=== PATIENT | female | born 1960 | race Caucasian/White ===

== ENCOUNTER 2016-09-20 10:07 | Outpatient (CLI) | payer OTHER | END 2016-09-20 10:08 | disposition home or self-care (01) | DX: Z00.00 Encounter for general adult medical examination without abnormal findings (principal); I10 Essential (primary) hypertension; K29.70 Gastritis, unspecified, without bleeding; M54.5 Low back pain; M48.06 Spinal stenosis, lumbar region; E03.9 Hypothyroidism, unspecified; L03.90 Cellulitis, unspecified; C50.919 Malignant neoplasm of unspecified site of unspecified female breast; F41.9 Anxiety disorder, unspecified; Z79.899 Other long term (current) drug therapy ==

== ENCOUNTER 2016-10-08 14:35 | Emergency (ER) | payer OTHER ==
[2016-10-08] MEDS ORDERED: DEXAMETHASONE 10 MG/ML VIAL IM STA (14:51)
[2016-10-08] MEDS ORDERED: HYDROmorphone 1 MG/ML SYRINGE IM STA (14:51)
[2016-10-08] MEDS ORDERED: HYDROmorphone 1 MG/ML SYRINGE ONE (14:53)
[2016-10-08] MEDS ORDERED: DEXAMETHASONE 10 MG/ML VIAL ONE (14:53)
[2016-10-08] MEDS ORDERED: diazePAM INJ 5 MG/ML SYRINGE IM STA (15:27)
[2016-10-08] MEDS ORDERED: KETOROLAC 60 MG/2 ML VIAL IM STA (15:27)
[2016-10-08] MEDS ORDERED: ONDANSETRON ODT 4 MG TABLET TL STA (15:27)
[2016-10-08] MEDS ORDERED: ONDANSETRON ODT 4 MG TABLET ONE (15:32)
[2016-10-08] MEDS ORDERED: diazePAM INJ 5 MG/ML SYRINGE ONE (15:32)
[2016-10-08] MEDS ORDERED: KETOROLAC 60 MG/2 ML VIAL ONE (15:32)
== END 2016-10-08 16:43 | disposition home or self-care (01) ==
DX: M54.42 Lumbago with sciatica, left side (principal); G89.29 Other chronic pain; F45.42 Pain disorder with related psychological factors; Z98.1 Arthrodesis status; I10 Essential (primary) hypertension
CPT/HCPCS: 96372; 99283; 99284; J1170; Q0162

== ENCOUNTER 2016-10-09 05:06 | Emergency (ER) | payer OTHER ==
[2016-10-09] MEDS ORDERED: DEXAMETHASONE 10 MG/ML VIAL PO STA (06:03)
[2016-10-09] MEDS ORDERED: MORPHINE 2 MG/ML SYRINGE IM STA ×2 (06:03→07:17)
[2016-10-09] MEDS ORDERED: ONDANSETRON ODT 4 MG TABLET TL STA ×2 (06:03→07:17)
[2016-10-09] MEDS ORDERED: ONDANSETRON ODT 4 MG TABLET ONE ×2 (06:26→07:22)
[2016-10-09] MEDS ORDERED: DEXAMETHASONE 10 MG/ML VIAL ONE (06:26)
[2016-10-09] MEDS ORDERED: MORPHINE 2 MG/ML SYRINGE ONE (06:26)
[2016-10-09] MEDS ORDERED: MORPHINE 10 MG/ML VIAL ONE ×2 (06:29→07:22)
== END 2016-10-09 07:46 | disposition home or self-care (01) ==
DX: M54.5 Low back pain (principal); G89.29 Other chronic pain; G62.9 Polyneuropathy, unspecified; I10 Essential (primary) hypertension; E03.9 Hypothyroidism, unspecified; Z85.3 Personal history of malignant neoplasm of breast
CPT/HCPCS: 96372; 99283; 99284; Q0162

== ENCOUNTER 2016-10-29 16:36 | Emergency (ER) | payer OTHER ==
[2016-10-29] MEDS ORDERED: MORPHINE 10 MG/ML VIAL IVP STA (18:46)
[2016-10-29] MEDS ORDERED: MORPHINE 10 MG/ML VIAL ONE (20:33)
[2016-10-29] MEDS ORDERED: MORPHINE 10 MG/ML VIAL IM STA (20:33)
== END 2016-10-29 21:00 | disposition home or self-care (01) ==
DX: R60.9 Edema, unspecified (principal); M25.572 Pain in left ankle and joints of left foot; I10 Essential (primary) hypertension

== ENCOUNTER 2016-11-30 14:54 | Emergency (ER) | payer OTHER ==
[2016-11-30] MEDS ORDERED: METHOCARBAMOL 500 MG TABLET PO STA (15:25)
[2016-11-30] MEDS ORDERED: IBUPROFEN 800 MG TABLET PO STA (15:25)
[2016-11-30] MEDS ORDERED: IBUPROFEN 800 MG TABLET PO ONE (15:29)
[2016-11-30] MEDS ORDERED: METHOCARBAMOL 500 MG TABLET PO ONE (15:30)
[2016-11-30] MEDS ORDERED: ONDANSETRON ODT 4 MG TABLET TL STA (15:57)
[2016-11-30] MEDS ORDERED: ONDANSETRON ODT 4 MG TABLET ONE (15:59)
== END 2016-11-30 17:00 | disposition home or self-care (01) ==
DX: M54.5 Low back pain (principal); V48.4XXA Person boarding or alighting a car injured in noncollision transport accident, initial encounter; G89.29 Other chronic pain; Z98.1 Arthrodesis status; I10 Essential (primary) hypertension; M19.90 Unspecified osteoarthritis, unspecified site; G62.9 Polyneuropathy, unspecified; E03.9 Hypothyroidism, unspecified
CPT/HCPCS: 72131; 99282; 99283; A9270; Q0162

== ENCOUNTER 2017-04-23 15:51 | Emergency (ER) | payer OTHER ==
[2017-04-23] MEDS ORDERED: MORPHINE 2 MG/ML SYRINGE IVP STA (16:42)
[2017-04-23] MEDS ORDERED: ONDANSETRON 4 MG/2 ML VIAL IVP STA (16:42)
--- NOTE | 2017-04-23 16:44 | ED Physician Documentation ---
PD HPI ABD PAIN - Stated complaint Stated Complaint: NAUSEA/SIDE PX - Chief complaint Chief Complaint: Abd Pain - History obtained from History obtained from: Patient - History of Present Illness Timing - onset: Other (57-year-old woman with history of recurrent diverticulitis presents with 3 days of worsening left lower quadrant pain not associated with nausea or diarrhea consistent with prior episodes of diverticulitis. 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 : None HEENT: None Psych: Depression, Anxiety, ADD/ADHD Musculoskeletal: Osteoarthritis, Chronic back pain Derm: None - Past Surgical History Past Surgical History: Yes General: Appendectomy Ortho: Spine surgery /PHYSICAL SCIENCE TECHNICIAN: Mastectomy - Present Medications Home Medications: Ambulatory Orders Medication Instructions Recorded Confirmed Thyroid,Pork [[place] Thyroid] 180 mg PO DAILY 06/06/15 11/30/16 Amlodipine Besylate [Norvasc] 10 mg PO DAILY 07/01/15 11/30/16 Trazodone HCl 200 mg PO QPM 02/19/16 11/30/16 oxyCODONE [Roxicodone] 15 mg PO 5XD PRN 04/14/16 11/30/16 Albuterol Sulfate [Proair 1 - 2 puffs IH Q4HR PRN #1 04/15/16 11/30/16 Respiclick] [email or web address] Venlafaxine ER [Effexor ER] 225 mg PO DAILY #0 04/15/16 11/30/16 Ondansetron HCl [Zofran] 4 mg PO Q6H PRN #20 tablet 06/11/16 11/30/16 Cyclobenzaprine [Flexeril] 10 mg PO TID PRN #20 tablet 08/16/16 11/30/16 Promethazine [Phenergan] 12.5 mg PO Q6H #10 tablet 08/16/16 11/30/16 Methocarbamol [Robaxin] 1,000 mg PO Q8HR #30 tablet 11/30/16 Ciprofloxacin HCl [Cipro] 500 mg PO BID #14 tablet 04/23/17 Metronidazole [Flagyl] 500 mg PO TID #20 tablet 04/23/17 Oxycodone HCl/Acetaminophen 1 - 2 tab PO Q4H PRN #15 tablet 04/23/17 [Percocet 5-325 mg Tablet] Promethazine [Phenergan] 25 - 50 mg PO Q6H PRN #15 tab 04/23/17 - Allergies Allergies/Adverse Reactions: Allergies Allergy/AdvReac Type Severity Reaction Status Date / Time adhesive tape Allergy Rash Verified 04/23/17 15:57 acetaminophen [From Vicodin] AdvReac Itching Verified 04/23/17 15:57 codeine AdvReac Nausea Verified 04/23/17 15:57 hydrocodone bitartrate * AdvReac Itching Verified 04/23/17 15:57 [From Vicodin] - Social History Does the pt smoke?: No Smoking Status: Never smoker Does the pt drink ETOH?: No Does the pt have substance abuse?: No - Family History Family history: reports: Non contributory - Immunizations Immunizations are current?: Yes - POLST Patient has POLST: No PD ED PE NORMAL - Vitals Vital signs reviewed: Yes - General General: Alert and oriented X 3, No acute distress - Cardiac Cardiac: RRR, No murmur - Respiratory Respiratory: No respiratory distress, Clear bilaterally - Abdomen Abdomen: Normal bowel sounds, Other (Soft with mild tenderness in the left lower quadrant but no surgical signs) - Back Back: No CVA TTP, No spinal TTP - Derm Derm: Normal color, Warm and dry - Extremities Extremities: No edema, No calf tenderness / cord - Neuro Neuro: Alert and oriented X 3, Normal speech - Psych Psych: Normal mood, Normal affect Results - Vitals Vitals: Vital Signs - 24 hr 04/23/17 15:54 Temperature 37.2 C Heart Rate 106 H Respiratory 18 Rate Blood Pressure 137/94 H O2 Saturation 98 Oxygen O2 Source Room air - Labs Labs: Laboratory Tests 04/23/17 04/23/17 16:55 16:55 WBC 12.4 H RBC 4.98 Hgb 15.4 Hct 45.3 MCV 91.1 MCH 31.0 MCHC 34.0 RDW 13.6 Plt Count 353 MPV 7.6 L Neut # 7.0 H Lymph # 4.3 H [place] # 0.8 Eos # 0.3 Baso # 0.0 Absolute Nucleated RBC 0.00 Nucleated RBCs 0.0 Sodium 139 Potassium 3.1 L Chloride 105 Carbon Dioxide 24 Anion Gap 10.0 BUN 15 Creatinine 0.7 Estimated GFR (MDRD) 86 L Glucose 128 H Calcium 10.1 Total Bilirubin 0.6 AST 20 ALT 18 Alkaline Phosphatase 94 Total Protein 7.9 Albumin 4.1 Globulin 3.8 Albumin/Globulin Ratio 1.1 Lipase 16 L PD MEDICAL DECISION MAKING - ED course ED course: 57-year-old woman with recurrent diverticulitis presents with apparent flare of same, given her symptoms, focal tenderness, and lack of significantly elevated white count CT imaging was not performed today to save her the cost and radiation, but discussed need to return if worsening or if not better in a few days. Departure - Departure Disposition: 01 Home, Self Care Clinical Impression: Diverticulitis of gastrointestinal tract Condition: Good Record reviewed to determine appropriate education?: Yes Instructions: ED Diverticulitis Follow-Up: PRAVEEN CANO MD [Provider Admit Priv/Credential] - Prescriptions: Ciprofloxacin HCl [Cipro] 500 mg PO BID #14 tablet Metronidazole [Flagyl] 500 mg PO TID #20 tablet Oxycodone HCl/Acetaminophen [Percocet 5-325 mg Tablet] 1 - 2 tab PO Q4H PRN #15 tablet PRN Reason: Pain Promethazine [Phenergan] 25 - 50 mg PO Q6H PRN #15 tab PRN Reason: Nausea / Vomiting Comments: Return if not better in a couple days, anytime if worse. As discussed it may be beneficial at this point to follow-up with the surgeon for definitive partial colectomy for the most diseased part of your colon. Name is on this form. Your blood pressure was elevated today on check into the emergency department. This does not mean that you have hypertension, it is a common phenomenon to come to the emergency department and have elevated blood pressure. I recommend that she see her primary care physician within the week to have it rechecked when you are feeling better. Do not drink or drive while taking narcotic pain medication. Note that many narcotic pain relievers also contain Tylenol/acetaminophen. Please ensure that your total dose of acetaminophen from all sources does not exceed 3 g (3000 mg) per day. You may get constipated while on this medication. Take a stool softener such as Colace twice a day while you are on it. Also add an [id number] laxative such as senna or MiraLAX on any day that you do not have a bowel movement. If you received a narcotic pain medication or sedative while in the emergency department, do not drive for the next 24 hours. Forms: Activity restrictions
[2017-04-23] MEDS ORDERED: MORPHINE 10 MG/ML VIAL ONE (17:01)
[2017-04-23] MEDS ORDERED: ONDANSETRON 4 MG/2 ML VIAL ONE (17:01)
[2017-04-23 17:14] LABS: BASOPHILS % (AUTO) 0.3 %; EOSINOPHILS # (AUTO) 0.3 10^3/uL (0.0-0.7); EOSINOPHILS % (AUTO) 2.4 %; HCT - HEMATOCRIT 45.3 % (37.0-47.0); HGB - HEMOGLOBIN 15.4 g/dL (12.0-16.0); LYMPHOCYTES # (AUTO) 4.3 10^3/uL (1.5-3.5); LYMPHOCYTES % (AUTO) 34.3 %; MEAN CORPUSCULAR VOLUME 91.1 fL (81.0-99.0); MEAN PLATELET VOLUME 7.6 fL (7.9-10.8); MONOCYTES # (AUTO) 0.8 10^3/uL (0.0-1.0); MONOCYTES % (AUTO) 6.3 %; NEUTROPHILS % (AUTO) 56.7 %; RED BLOOD COUNT 4.98 10^6/uL (4.20-5.40); RED CELL DISTRIBUTION WIDTH 13.6 % (12.0-15.0); UNCORRECTED WHITE BLOOD COUNT 12.4 x10^3/uL; WHITE BLOOD COUNT 12.4 x10^3/uL (4.8-10.8)
[2017-04-23 17:25] LABS: ALBUMIN/GLOBULIN RATIO 1.1 (1.0-2.2); BILIRUBIN,TOTAL 0.6 mg/dL (0.2-1.0); CALCIUM 10.1 mg/dL (8.5-10.3); CREATININE 0.7 mg/dL (0.4-1.0); POTASSIUM 3.1 mmol/L (3.5-5.0); TOTAL PROTEIN 7.9 g/dL (6.7-8.2)
[2017-04-23] MEDS ORDERED: CIPROFLOXACIN 250 MG TABLET PO STA (17:51)
[2017-04-23] MEDS ORDERED: metroNIDAZOLE 250 MG TABLET PO STA (17:51)
[2017-04-23] MEDS ORDERED: POTASSIUM CHLORIDE 20 MEQ TABLET PO STA (17:51)
[2017-04-23] MEDS ORDERED: PROMETHAZINE INJ 25 MG in SODIUM CHLORIDE 0.9% 50 ML IV STA (17:56)
[2017-04-23] MEDS ORDERED: HYDROmorphone 1 MG/ML SYRINGE IVP STA (17:56)
[2017-04-23] MEDS ORDERED: metroNIDAZOLE 250 MG TABLET PO ONE (18:09)
[2017-04-23] MEDS ORDERED: PROMETHAZINE 25 MG/1 ML VIAL ONE (18:10)
[2017-04-23] MEDS ORDERED: POTASSIUM CHLORIDE 20 MEQ TABLET PO ONE (18:10)
[2017-04-23] MEDS ORDERED: CIPROFLOXACIN 250 MG TABLET PO ONE (18:10)
[2017-04-23] MEDS ORDERED: HYDROmorphone 1 MG/ML SYRINGE ONE (18:10)
[2017-04-23 18:34] VITALS: BP 134/88
== END 2017-04-23 18:38 | disposition home or self-care (01) ==
LOC: ED 15:51
DX: K57.32 Diverticulitis of large intestine without perforation or abscess without bleeding (principal); I10 Essential (primary) hypertension; J45.909 Unspecified asthma, uncomplicated; G62.9 Polyneuropathy, unspecified; E03.9 Hypothyroidism, unspecified; M19.90 Unspecified osteoarthritis, unspecified site; Z85.3 Personal history of malignant neoplasm of breast
CPT/HCPCS: 36415; 80053; 83690; 85025; 96374; 96375; 99283; 99284; A9270; J1170; J7040

== ENCOUNTER 2017-05-16 00:11 | Emergency (ER) | payer OTHER ==
[2017-05-16] MEDS ORDERED: ONDANSETRON ODT 4 MG TABLET TL STA (00:45)
[2017-05-16] MEDS ORDERED: IBUPROFEN 600 MG TABLET PO STA (00:46)
[2017-05-16] MEDS ORDERED: KETOROLAC 60 MG/2 ML VIAL IM STA (00:46)
[2017-05-16] MEDS ORDERED: ONDANSETRON ODT 4 MG TABLET ONE (00:51)
[2017-05-16] MEDS ORDERED: KETOROLAC 60 MG/2 ML VIAL ONE (00:51)
[2017-05-16 00:54] LABS: BASOPHILS # (AUTO) 0.1 10^3/uL (0.0-0.1); BASOPHILS % (AUTO) 1.1 %; EOSINOPHILS # (AUTO) 0.3 10^3/uL (0.0-0.7); EOSINOPHILS % (AUTO) 4.8 %; HCT - HEMATOCRIT 39.4 % (37.0-47.0); HGB - HEMOGLOBIN 13.2 g/dL (12.0-16.0); LYMPHOCYTES # (AUTO) 3.6 10^3/uL (1.5-3.5); LYMPHOCYTES % (AUTO) 51.5 %; MEAN CORPUSCULAR HEMOGLOBIN 30.8 pg (27.0-31.0); MEAN CORPUSCULAR HGB CONC 33.6 g/dL (32.0-36.0); MEAN CORPUSCULAR VOLUME 91.9 fL (81.0-99.0); MEAN PLATELET VOLUME 8.2 fL (7.9-10.8); MONOCYTES # (AUTO) 0.6 10^3/uL (0.0-1.0); MONOCYTES % (AUTO) 9.1 %; NEUTROPHILS # (AUTO) 2.3 10^3/uL (1.5-6.6); NEUTROPHILS % (AUTO) 33.5 %; NUCLEATED RED BLOOD CELLS AUTO 0.1 /100WBC; RED BLOOD COUNT 4.29 10^6/uL (4.20-5.40)
[2017-05-16 00:59] LABS: ALBUMIN/GLOBULIN RATIO 1.1 (1.0-2.2); BILIRUBIN,TOTAL 0.5 mg/dL (0.2-1.0); CALCIUM 9.2 mg/dL (8.5-10.3); CREATININE 0.5 mg/dL (0.4-1.0); POTASSIUM 3.2 mmol/L (3.5-5.0); TOTAL PROTEIN 7.3 g/dL (6.7-8.2)
--- NOTE | 2017-05-16 01:06 | ED Physician Documentation ---
PD HPI SKIN - Stated complaint Stated Complaint: R/L LEG SWELLING - Chief complaint Chief Complaint: Ext Problem - History obtained from History obtained from: Patient, Family - History of Present Illness Timing - onset: Yesterday Timing - details: Gradual onset, Still present Location: RLE, LLE Quality / character: Painful, Discolored Associated symptoms: No: Fever, Myalgias Contributing factors: No: Exposed to medication, Exposed to food Similar symptoms before: Work up / diagnostics, Treatment Recently seen: Not recently seen - Additional information Additional information: Patient is a 57 year old female who is presenting to the emergency department for leg swelling and redness. patient states that she had been treated for cellulitis in the past and this is how it starts. Patient things that it is going to happen again so she came in for evaluation. Review of Systems Constitutional: reports: Fever. denies: Chills Eyes: denies: Loss of vision, Photophobia Ears: denies: Ear pain, Drainage/discharge Nose: denies: Congestion Throat: denies: Sore throat Cardiac: denies: Chest pain / pressure, Palpitations Respiratory: denies: Dyspnea, Cough, Wheezing GI: denies: Nausea, Vomiting Skin: reports: Rash. 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 : None HEENT: None Psych: Depression, Anxiety, ADD/ADHD Musculoskeletal: Osteoarthritis, Chronic back pain Derm: None - Past Surgical History Past Surgical History: Yes General: Appendectomy Ortho: Spine surgery /CUSTODIAL WORKER: Mastectomy - Present Medications Home Medications: Ambulatory Orders Medication Instructions Recorded Confirmed Thyroid,Pork [[place] Thyroid] 180 mg PO DAILY 06/06/15 11/30/16 Amlodipine Besylate [Norvasc] 10 mg PO DAILY 07/01/15 11/30/16 Trazodone HCl 200 mg PO QPM 02/19/16 11/30/16 oxyCODONE [Roxicodone] 15 mg PO 5XD PRN 04/14/16 11/30/16 Albuterol Sulfate [Proair 1 - 2 puffs IH Q4HR PRN #1 04/15/16 11/30/16 Respiclick] [email or web address] Venlafaxine ER [Effexor ER] 225 mg PO DAILY #0 04/15/16 11/30/16 Ondansetron HCl [Zofran] 4 mg PO Q6H PRN #20 tablet 06/11/16 11/30/16 Cyclobenzaprine [Flexeril] 10 mg PO TID PRN #20 tablet 08/16/16 11/30/16 Promethazine [Phenergan] 12.5 mg PO Q6H #10 tablet 08/16/16 11/30/16 Methocarbamol [Robaxin] 1,000 mg PO Q8HR #30 tablet 11/30/16 Ciprofloxacin HCl [Cipro] 500 mg PO BID #14 tablet 04/23/17 Metronidazole [Flagyl] 500 mg PO TID #20 tablet 04/23/17 Oxycodone HCl/Acetaminophen 1 - 2 tab PO Q4H PRN #15 tablet 04/23/17 [Percocet 5-325 mg Tablet] Promethazine [Phenergan] 25 - 50 mg PO Q6H PRN #15 tab 04/23/17 Cephalexin [Keflex] 500 mg PO Q6H 7 Days 05/16/17 - Allergies Allergies/Adverse Reactions: Allergies Allergy/AdvReac Type Severity Reaction Status Date / Time adhesive tape Allergy Rash Verified 04/23/17 15:57 acetaminophen [From Vicodin] AdvReac Itching Verified 04/23/17 15:57 codeine AdvReac Nausea Verified 04/23/17 15:57 hydrocodone bitartrate * AdvReac Itching Verified 04/23/17 15:57 [From Vicodin] - Social History Does the pt smoke?: No Smoking Status: Never smoker Does the pt drink ETOH?: No Does the pt have substance abuse?: No - Immunizations Immunizations are current?: Yes - POLST Patient has POLST: No PD ED PE NORMAL - Vitals Vital signs reviewed: Yes - General General: Alert and oriented X 3, No acute distress - HEENT HEENT: Atraumatic, PERRL - Neck Neck: Supple, no meningeal sign - Cardiac Cardiac: No murmur - Respiratory Respiratory: No respiratory distress - Abdomen Abdomen: Soft, Non tender - Neuro Neuro: Alert and oriented X 3, No motor deficit, No sensory deficit, Normal speech - Psych Psych: Normal mood, Normal affect PD ED PE EXPANDED - Derm Derm: Rash (minimal erythema to bilateral lower extremities) - Extremities Extremities: Pedal edema bilateral Results - Vitals Vitals: Vital Signs - 24 hr 05/16/17 00:24 Temperature 36.5 C Heart Rate 106 H Respiratory 16 Rate Blood Pressure 122/95 H O2 Saturation 96 Oxygen O2 Source Room air - Labs Labs: Laboratory Tests 05/16/17 05/16/17 00:42 00:42 WBC 7.0 RBC 4.29 Hgb 13.2 Hct 39.4 MCV 91.9 MCH 30.8 MCHC 33.6 RDW 13.0 Plt Count 187 MPV 8.2 Neut # 2.3 Lymph # 3.6 H [place] # 0.6 Eos # 0.3 Baso # 0.1 Absolute Nucleated RBC 0.01 Nucleated RBCs 0.1 Sodium 138 Potassium 3.2 L Chloride 106 Carbon Dioxide 24 Anion Gap 8.0 BUN 12 Creatinine 0.5 Estimated GFR (MDRD) 127 Glucose 114 H Calcium 9.2 Total Bilirubin 0.5 AST 29 ALT 26 Alkaline Phosphatase 68 Total Protein 7.3 Albumin 3.9 Globulin 3.4 Albumin/Globulin Ratio 1.1 Lipase 14 L PD MEDICAL DECISION MAKING - ED course Complexity details: reviewed old records, reviewed results, re-evaluated patient , considered differential, d/w patient, d/w family ED course: Patient was seen and examined at bedside. labs were drawn and patient was treated with toradol and zofran. Patient's labs were within normal limits as were her vital signs. Patient required no further inpatient work up and was stable for discharge with outpatient follow up. Departure - Departure Disposition: 01 Home, Self Care Clinical Impression: Cellulitis Condition: Poor Instructions: Cellulitis Dc Follow-Up: Kathleen Asher MD [Primary Care Provider] - Prescriptions: Cephalexin [Keflex] 500 mg PO Q6H 7 Days Comments: Your diagnostics today were entirely within normal limits. a prescription for keflex was written incase the redness gets worse. Otherwise I would no start it. You should follow up with your pmd for further evaluation and care. You may return to the emergency department at any time for new, worsening or uncontrollable symptoms.
[2017-05-16 01:13] VITALS: BP 145/79
== END 2017-05-16 01:28 | disposition home or self-care (01) ==
LOC: ED 00:11
DX: L03.116 Cellulitis of left lower limb (principal); L03.115 Cellulitis of right lower limb; I10 Essential (primary) hypertension; G62.9 Polyneuropathy, unspecified; C50.919 Malignant neoplasm of unspecified site of unspecified female breast; Z90.10 Acquired absence of unspecified breast and nipple
CPT/HCPCS: 36415; 80053; 83690; 85025; 96372; 99283; 99284; Q0162

== ENCOUNTER 2017-06-15 15:46 | Emergency (ER) | payer OTHER ==
--- NOTE | 2017-06-15 16:10 | ED Physician Documentation ---
PD HPI ABD PAIN - Stated complaint Stated Complaint: ABD PX - Chief complaint Chief Complaint: Abd Pain - History obtained from History obtained from: Patient - History of Present Illness Timing - onset: Yesterday Timing - duration: Days (2) Timing - details: Gradual onset, Still present Quality: Cramping, Aching, Pain Location: Periumbilical, LLQ Radiation: Lower back Improved by: Position (lying on side). No: Eating Worsened by: Moving, Position, Palpation. No: Eating Associated symptoms: Nausea, Loss of appetite. No: Fever, Vomiting, Diarrhea, Constipation, Hematochezia, Chest pain Recently seen: Not recently seen Review of Systems Constitutional: denies: Fever, Chills Ears: denies: Ear pain, Tinnitus/ringing Nose: denies: Rhinorrhea / runny nose, Congestion Throat: denies: Dental pain / toothache, Oral lesions / sores, Sore throat Cardiac: denies: Chest pain / pressure, Palpitations PD PAST MEDICAL HISTORY - Past Medical History Cardiovascular: Hypertension Respiratory: Asthma, Shortness of breath Neuro: None, Peripheral neuropathy, Motion sickness Endocrine/Autoimmune: HyPOthyroidism GI: Diverticulitis 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: Breast 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 : None HEENT: None Psych: Depression, Anxiety, ADD/ADHD Musculoskeletal: Osteoarthritis, Chronic back pain Derm: None - Past Surgical History Past Surgical History: Yes General: Appendectomy Ortho: Spine surgery /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: Mastectomy - Present Medications Home Medications: Ambulatory Orders Medication Instructions Recorded Confirmed Thyroid,Pork [[place] Thyroid] 180 mg PO DAILY 06/06/15 11/30/16 Amlodipine Besylate [Norvasc] 10 mg PO DAILY 07/01/15 11/30/16 Trazodone HCl 200 mg PO QPM 02/19/16 11/30/16 oxyCODONE [Roxicodone] 15 mg PO 5XD PRN 04/14/16 11/30/16 Albuterol Sulfate [Proair 1 - 2 puffs IH Q4HR PRN #1 04/15/16 11/30/16 Respiclick] [email or web address] Venlafaxine ER [Effexor ER] 225 mg PO DAILY #0 04/15/16 11/30/16 Ondansetron HCl [Zofran] 4 mg PO Q6H PRN #20 tablet 10/04/16 03/25/17 Cyclobenzaprine [Flexeril] 10 mg PO TID PRN #20 tablet 08/16/16 11/30/16 Promethazine [Phenergan] 12.5 mg PO Q6H #10 tablet 08/16/16 11/30/16 Methocarbamol [Robaxin] 1,000 mg PO Q8HR #30 tablet 11/30/16 Ciprofloxacin HCl [Cipro] 500 mg PO BID #14 tablet 04/23/17 Metronidazole [Flagyl] 500 mg PO TID #20 tablet 04/23/17 Oxycodone HCl/Acetaminophen 1 - 2 tab PO Q4H PRN #15 tablet 04/23/17 [Percocet 5-325 mg Tablet] Promethazine [Phenergan] 25 - 50 mg PO Q6H PRN #15 tab 04/23/17 Cephalexin [Keflex] 500 mg PO Q6H 7 Days capsule 05/16/17 Cephalexin [Keflex] 500 mg PO TID #21 capsule 06/15/17 Metronidazole [Flagyl] 500 mg PO BID #14 tablet 06/15/17 Naproxen 375 mg PO BID #15 tablet 06/15/17 Oxycodone HCl/Acetaminophen 1 each PO Q6H PRN #20 tablet 06/15/17 [Percocet 5-325 mg Tablet] - Allergies Allergies/Adverse Reactions: Allergies Allergy/AdvReac Type Severity Reaction Status Date / Time adhesive tape Allergy Rash Verified 04/23/17 15:57 acetaminophen [From Vicodin] AdvReac Itching Verified 04/23/17 15:57 codeine AdvReac Nausea Verified 04/23/17 15:57 hydrocodone bitartrate * AdvReac Itching Verified 04/23/17 15:57 [From Vicodin] - Social History Does the pt smoke?: No Smoking Status: Never smoker Does the pt drink ETOH?: No Does the pt have substance abuse?: No - Family History Family history: reports: Non contributory - Immunizations Immunizations are current?: Yes - POLST Patient has POLST: No PD ED PE NORMAL - Vitals Vital signs reviewed: Yes - General General: Alert and oriented X 3, Well developed/nourished, Other (appears in pain) - HEENT HEENT: Pharynx benign. No: Moist mucous membranes - Neck Neck: Supple, no meningeal sign, No adenopathy - Cardiac Cardiac: RRR, No murmur - Respiratory Respiratory: Clear bilaterally - Abdomen Abdomen: Normal bowel sounds, Soft, Non distended, No organomegaly, Other ( tender mid to lower abdomen, more to left. With some local guarding but no percussion nor rebound tenderness. ) - Female Female : Deferred - Rectal Rectal: Deferred - Back Back: No CVA TTP - Derm Derm: Normal color, Warm and dry - Extremities Extremities: Normal ROM s pain, No edema, No calf tenderness / cord - Neuro Neuro: Alert and oriented X 3, No motor deficit, No sensory deficit, Normal speech - Psych Psych: Normal mood, Normal affect Results - Vitals Vitals: Oxygen O2 Source Room air - Labs Labs: Laboratory Tests 06/15/17 06/15/17 06/15/17 16:58 16:58 18:55 WBC 10.2 RBC 4.48 Hgb 13.7 Hct 40.3 MCV 90.0 MCH 30.5 MCHC 33.9 RDW 12.4 Plt Count 277 MPV 8.2 Sodium 139 Potassium 3.3 L Chloride 108 Carbon Dioxide 22 Anion Gap 9.0 BUN 12 Creatinine 0.6 Estimated GFR (MDRD) 103 Glucose 96 Calcium 9.5 Total Bilirubin 0.5 AST 19 ALT 19 Alkaline Phosphatase 79 Total Protein 7.2 Albumin 4.0 Globulin 3.2 Albumin/Globulin Ratio 1.3 Lipase 13 L Urine Color YELLOW Urine Clarity CLEAR Urine pH 6.0 Ur Specific [place] 1.015 Urine Protein NEGATIVE Urine Glucose (UA) NEGATIVE Urine Ketones NEGATIVE Urine Occult Blood NEGATIVE Urine Nitrite NEGATIVE Urine Bilirubin NEGATIVE Urine Urobilinogen 0.2 (NORMAL) Ur Leukocyte Esterase SMALL H - Rads (name of study) abd CT Radiology: Prelim report reviewed, EMP read contemporaneously (sigmoid diverticulitis, without abscess nor perforation. Else normal. ) PD MEDICAL DECISION MAKING - ED course Complexity details: reviewed results, re-evaluated patient (doing better with pain and nausea, and would prefer to try going home. ), considered differential , d/w patient Departure - Departure Disposition: 01 Home, Self Care Clinical Impression: Diverticulitis of gastrointestinal tract Abdominal pain Qualifiers: Abdominal location: lower abdomen, unspecified Qualified Code(s): R10.30 - Lower abdominal pain, unspecified Condition: Stable Record reviewed to determine appropriate education?: Yes Instructions: ED Diverticulitis Follow-Up: Kathleen Asher MD [Primary Care Provider] - Prescriptions: Cephalexin [Keflex] 500 mg PO TID #21 capsule Metronidazole [Flagyl] 500 mg PO BID #14 tablet Naproxen 375 mg PO BID #15 tablet Oxycodone HCl/Acetaminophen [Percocet 5-325 mg Tablet] 1 each PO Q6H PRN #20 tablet PRN Reason: Pain Comments: Drink lots of fluids. Tylenol if needed for pain. Add Percocet if needed for pain. Naproxen twice daily for a week for inflammation. Cephalexin and metronidazole antibiotics for a week for the infection. Recheck if not improving over the next 2-3 days return sooner if worsening. There is signs of diverticulitis on the CT scan but no abscess nor perforation. Discharge Date/Time: 06/15/17 20:24
[2017-06-15] MEDS ORDERED: ONDANSETRON 4 MG/2 ML VIAL IVP STA (16:24)
[2017-06-15] MEDS ORDERED: HYDROmorphone 1 MG/ML CARPUJECT IVP STA ×2 (16:24→18:39)
[2017-06-15] MEDS ORDERED: SODIUM CHLORIDE 0.9% 1,000 ML IV ONE ×2 (16:24→19:16)
[2017-06-15] MEDS ORDERED: cefTRIAXone 1 GM VIAL IVP STA (16:27)
[2017-06-15] MEDS ORDERED: metroNIDAZOLE 500 MG/100 ML 500 MG/100 ML BAG IV ONE (16:27)
[2017-06-15] MEDS ORDERED: IOPAMIDOL-300 100 ML VIAL ONE (16:33)
[2017-06-15 17:05] LABS: HCT - HEMATOCRIT 40.3 % (37.0-47.0); HGB - HEMOGLOBIN 13.7 g/dL (12.0-16.0); MEAN CORPUSCULAR HEMOGLOBIN 30.5 pg (27.0-31.0); MEAN CORPUSCULAR HGB CONC 33.9 g/dL (32.0-36.0); MEAN PLATELET VOLUME 8.2 fL (7.9-10.8); RED BLOOD COUNT 4.48 10^6/uL (4.20-5.40); RED CELL DISTRIBUTION WIDTH 12.4 % (12.0-15.0); WHITE BLOOD COUNT 10.2 x10^3/uL (4.8-10.8)
[2017-06-15] MEDS ORDERED: HYDROmorphone 1 MG/ML SYRINGE ONE ×3 (17:08→19:28)
[2017-06-15] MEDS ORDERED: ONDANSETRON 4 MG/2 ML VIAL ONE (17:09)
[2017-06-15] MEDS ORDERED: SODIUM CHLORIDE FLUSH 0.9% 10 ML SYRINGE IVP ONE ×2 (17:09→18:00)
[2017-06-15 17:17] LABS: ALBUMIN/GLOBULIN RATIO 1.3 (1.0-2.2); BILIRUBIN,TOTAL 0.5 mg/dL (0.2-1.0); CALCIUM 9.5 mg/dL (8.5-10.3); CREATININE 0.6 mg/dL (0.4-1.0); POTASSIUM 3.3 mmol/L (3.5-5.0); TOTAL PROTEIN 7.2 g/dL (6.7-8.2)
[2017-06-15] MEDS ORDERED: metroNIDAZOLE 500 MG/100 ML 500 MG/100 ML BAG ONE (17:27)
[2017-06-15] MEDS ORDERED: cefTRIAXone 1 GM VIAL ONE (17:27)
--- NOTE | 2017-06-15 17:54 | CT Preliminary Report ---
Exam: CT Abdomen/Pelvis W/O IMPRESSION: CT findings suggestive of mild sigmoid colon diverticulitis. There is no evidence of perforation or p ericolonic abscess. SITE ID: [id number]
--- NOTE | 2017-06-15 17:56 | CT Report ---
EXAM: CT ABDOMEN AND PELVIS EXAM DATE: 06/15/2017 05:32 PM. CLINICAL HISTORY: Left abd pain with history of diverticulitis. COMPARISONS: None. TECHNIQUE: Routine axial helical CT imaging was performed through the abdomen and pelvis without IV c ontrast. Reconstructions: Coronal and sagittal. In accordance with CT protocol optimization, one or more of the following dose reduction techniques w ere utilized for this exam: automated exposure control, adjustment of mA and/or KV based on patient s ize, or use of iterative reconstructive technique. FINDINGS: Lung Bases: Unremarkable. Abdominal Organs: Noncontrast images of the abdominal organs are grossly unremarkable. Gallbladder/bile ducts: No significant abnormalities. Peritoneal Cavity: Stomach and small bowel demonstrate no acute abnormalities. There is distal coloni c diverticulosis. There is mild sigmoid colon wall thickening and adjacent fat stranding. No evidence of intraperitoneal free air. No evidence of pericolonic abscess. Pelvic Organs: No bladder stones or wall thickening. Noncontrast images of the visualized pelvic orga ns are unremarkable. Vasculature: Unremarkable. Other: Multilevel lumbar fusion hardware is in place. No evidence of hardware dysfunction. Patient [place] s undergone lower lumbar laminectomy. IMPRESSION: CT findings suggestive of mild sigmoid colon diverticulitis. There is no evidence of perforation or p ericolonic abscess. Referring Provider Line: [phone] SITE ID: [id number]
[2017-06-15] MEDS ORDERED: KETOROLAC 60 MG/2 ML VIAL IVP STA (18:39)
[2017-06-15] MEDS ORDERED: KETOROLAC 30 MG/ML VIAL ONE (18:49)
[2017-06-15 19:02] LABS: BILIRUBIN,URINE NEGATIVE (NEGATIVE)
[2017-06-15 19:28] VITALS: BP 115/72
[2017-06-15] MEDS: HYDROmorphone 1 MG/ML CARPUJECT IVP STA ×2 (19:42→19:51)
[2017-06-15] MEDS ORDERED: HYDROmorphone 1 MG/ML CARPUJECT IM STA (19:46)
[2017-06-15] MEDS ORDERED: oxyCODONE/ACET 5/325 Prepack 4 PO STA (19:46)
[2017-06-15] MEDS ORDERED: PROMETHAZINE 25 MG/1 ML VIAL IM STA (19:46)
[2017-06-15] MEDS ORDERED: PROMETHAZINE 25 MG/1 ML VIAL ONE (19:58)
[2017-06-15] MEDS ORDERED: oxyCODONE/ACET 5/325 Prepack 4 PO ONE (19:59)
[2017-06-16] MEDS ORDERED: SODIUM CHLORIDE FLUSH 0.9% 10 ML SYRINGE IVP PRN (20:59)
[2017-06-16] MEDS ORDERED: SODIUM CHLORIDE 0.9% 1,000 ML IV SCH (21:00)
[2017-06-16] MEDS ORDERED: KETOROLAC 30 MG/ML VIAL IVP PRN (21:11)
[2017-06-16] MEDS ORDERED: MORPHINE 2 MG/ML SYRINGE IVP PRN (21:14)
[2017-06-16] MEDS ORDERED: ONDANSETRON 4 MG/2 ML VIAL IVP PRN (21:20)
[2017-06-16] MEDS ORDERED: traZODone 50 MG TABLET PO PRN (21:21)
[2017-06-16] MEDS ORDERED: diphenhydrAMINE 25 MG CAPSULE PO PRN (21:35)
[2017-06-16] MEDS ORDERED: POTASSIUM CHLORIDE 20 MEQ TABLET PO ONE (22:00)
[2017-06-16] MEDS ORDERED: metroNIDAZOLE 500 MG/100 ML 500 MG/100 ML BAG IV SCH (22:00)
[2017-06-16] MEDS ORDERED: SODIUM CHLORIDE FLUSH 0.9% 10 ML SYRINGE IVP SCH (22:00)
[2017-06-16] MEDS ORDERED: AMPICILLIN/SULBACTAM 3 GM in SODIUM CHLORIDE 0.9% MINIBAG 100 ML IV SCH (22:00)
[2017-06-17] MEDS ORDERED: ENOXAPARIN 40 MG/0.4 ML SYRINGE SUBQ SCH (09:00)
[2017-06-17] MEDS ORDERED: PANTOPRAZOLE 40 MG VIAL IV SCH (09:00)
[2017-06-17] MEDS ORDERED: amLODIPine 5 MG TABLET PO SCH (09:00)
[2017-06-17] MEDS ORDERED: VENLAFAXINE ER 75 MG CAPSULE PO SCH (09:00)
[2017-06-17] MEDS ORDERED: THYROID PORK 180 MG PO SCH (09:00)
[2017-06-17] MEDS ORDERED: POLYETHYLENE GLYCOL 3350 17 GM PACKET PO SCH (09:00)
== END 2017-06-15 20:24 | disposition home or self-care (01) ==
LOC: ED 15:46
DX: K57.32 Diverticulitis of large intestine without perforation or abscess without bleeding (principal); I10 Essential (primary) hypertension; J45.909 Unspecified asthma, uncomplicated; E03.9 Hypothyroidism, unspecified; G62.9 Polyneuropathy, unspecified; M19.90 Unspecified osteoarthritis, unspecified site; Z85.3 Personal history of malignant neoplasm of breast; Z90.10 Acquired absence of unspecified breast and nipple
CPT/HCPCS: 36415; 74176; 80053; 81003; 83690; 85027; 93005; 96372; 96374; 96375; 99283; 99284; J1170

== ENCOUNTER 2017-06-16 17:20 | Inpatient (IN) | payer OTHER ==
--- NOTE | 2017-06-16 19:38 | ED Physician Documentation ---
PD HPI ABD PAIN - Stated complaint Stated Complaint: STOMACH PX - Chief complaint Chief Complaint: Abd Pain - History obtained from History obtained from: Patient - History of Present Illness Timing - onset: How many days ago (3) Timing - duration: Days Timing - details: Abrupt onset, Gradual onset, Still present Quality: Cramping, Aching, Pain Location: Periumbilical, LLQ Radiation: Lower back Improved by: No: Eating, Vomiting Worsened by: Eating Associated symptoms: Nausea, Vomiting, Diarrhea, Dysuria, Loss of appetite. No : Fever, Hematemesis, Hematochezia Recently seen: Emergency Dept (yesterday with Dx diverticulitis and opted for home treatment. However she did have worse pain and also vomiting overnight into today, so was not able to take medications (or not keep them down anyway). 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 : None HEENT: None Psych: Depression, Anxiety, ADD/ADHD Musculoskeletal: Osteoarthritis, Chronic back pain Derm: None - Past Surgical History Past Surgical History: Yes General: Appendectomy Ortho: Spine surgery /FIRE HAZARD INSPECTOR: Mastectomy - Present Medications Home Medications: Ambulatory Orders Medication Instructions Recorded Confirmed Thyroid,Pork [[place] Thyroid] 180 mg PO DAILY 06/06/15 11/30/16 Amlodipine Besylate [Norvasc] 10 mg PO DAILY 07/01/15 11/30/16 Trazodone HCl 200 mg PO QPM 02/19/16 11/30/16 oxyCODONE [Roxicodone] 15 mg PO 5XD PRN 04/14/16 11/30/16 Albuterol Sulfate [Proair 1 - 2 puffs IH Q4HR PRN #1 04/15/16 11/30/16 Respiclick] [email or web address] Venlafaxine ER [Effexor ER] 225 mg PO DAILY #0 04/15/16 11/30/16 Ondansetron HCl [Zofran] 4 mg PO Q6H PRN #20 tablet 06/11/16 11/30/16 Cyclobenzaprine [Flexeril] 10 mg PO TID PRN #20 tablet 08/16/16 11/30/16 Promethazine [Phenergan] 12.5 mg PO Q6H #10 tablet 08/16/16 11/30/16 Methocarbamol [Robaxin] 1,000 mg PO Q8HR #30 tablet 11/30/16 Ciprofloxacin HCl [Cipro] 500 mg PO BID #14 tablet 04/23/17 Metronidazole [Flagyl] 500 mg PO TID #20 tablet 04/23/17 Oxycodone HCl/Acetaminophen 1 - 2 tab PO Q4H PRN #15 tablet 04/23/17 [Percocet 5-325 mg Tablet] Promethazine [Phenergan] 25 - 50 mg PO Q6H PRN #15 tab 04/23/17 Cephalexin [Keflex] 500 mg PO Q6H 7 Days capsule 05/16/17 Cephalexin [Keflex] 500 mg PO TID #21 capsule 06/15/17 Metronidazole [Flagyl] 500 mg PO BID #14 tablet 06/15/17 Naproxen 375 mg PO BID #15 tablet 06/15/17 Oxycodone HCl/Acetaminophen 1 each PO Q6H PRN #20 tablet 06/15/17 [Percocet 5-325 mg Tablet] - Allergies Allergies/Adverse Reactions: Allergies Allergy/AdvReac Type Severity Reaction Status Date / Time adhesive tape Allergy Rash Verified 04/23/17 15:57 acetaminophen [From Vicodin] AdvReac Itching Verified 04/23/17 15:57 codeine AdvReac Nausea Verified 04/23/17 15:57 hydrocodone bitartrate * AdvReac Itching Verified 04/23/17 15:57 [From Vicodin] - Living Situation Living Situation: reports: With spouse/s.o. Living Arrangement: reports: At home - Social History Does the pt smoke?: No Smoking Status: Never smoker Does the pt drink ETOH?: No Does the pt have substance abuse?: No - Immunizations Immunizations are current?: Yes - POLST Patient has POLST: No PD ED PE NORMAL - Vitals Vital signs reviewed: Yes - General General: Alert and oriented X 3 - HEENT HEENT: Atraumatic. No: Moist mucous membranes - Neck Neck: Supple, no meningeal sign, No adenopathy - Cardiac Cardiac: RRR, No murmur - Respiratory Respiratory: Clear bilaterally - Abdomen Abdomen: Soft, Non tender, Non distended, No organomegaly, Other (tender upper to left abd without percussion tenderness. ) - Back Back: No CVA TTP - Derm Derm: Warm and dry, No rash. No: Normal color (pallor) - Extremities Extremities: No deformity, Normal ROM s pain, No edema - Neuro Neuro: Alert and oriented X 3, No motor deficit, Normal speech Results - Vitals Vitals: Vital Signs - 24 hr 06/16/17 06/16/17 17:25 20:33 Temperature 37.4 C Heart Rate 85 79 Respiratory 20 20 Rate Blood Pressure 171/95 H 169/71 H O2 Saturation 98 98 Oxygen O2 Source Room air - Labs Labs: Laboratory Tests 06/16/17 06/16/17 20:03 20:03 WBC 11.9 H RBC 4.39 Hgb 13.3 Hct 39.8 MCV 90.6 MCH 30.3 MCHC 33.5 RDW 12.3 Plt Count 282 MPV 8.0 Neut # 6.1 Lymph # 4.6 H Sublette # 0.8 Eos # 0.3 Baso # 0.0 Absolute Nucleated RBC 0.00 Nucleated RBC % 0.0 Sodium 139 Potassium 2.9 L Chloride 107 Carbon Dioxide 23 Anion Gap 9.0 BUN 15 Creatinine 0.6 Estimated GFR (MDRD) 103 Glucose 99 Calcium 9.3 Total Bilirubin 0.3 AST 20 ALT 19 Alkaline Phosphatase 73 Total Protein 6.8 Albumin 3.8 Globulin 3.0 Albumin/Globulin Ratio 1.3 Lipase 19 L PD MEDICAL DECISION MAKING - ED course Complexity details: reviewed old records, reviewed results, considered differential (seen yesterday for abd pain and Dx with sigmoid diverticulitis on CT. IV meds in ED and patient wanting to go home. She has had vomiting and pain today, so unable to keep meds down. Here for evaluation again. ), d/w patient Departure - Departure Disposition: [facility] DC/Xfer Clinical Impression: Diverticulitis of gastrointestinal tract, Failure of outpatient treatment Abdominal pain Qualifiers: Abdominal location: lower abdomen, unspecified Qualified Code(s): R10.30 - Lower abdominal pain, unspecified Vomiting Qualifiers: Vomiting type: unspecified Vomiting Intractability: non-intractable Nausea presence: with nausea Qualified Code(s): R11.2 - Nausea with vomiting, unspecified Condition: Stable Record reviewed to determine appropriate education?: Yes Discharge Date/Time: 06/16/17 22:16
[2017-06-16] MEDS ORDERED: metroNIDAZOLE 500 MG/100 ML 500 MG/100 ML BAG IV ONE (19:42)
[2017-06-16] MEDS ORDERED: HYDROmorphone 1 MG/ML CARPUJECT IVP STA ×2 (19:42→21:42)
[2017-06-16] MEDS ORDERED: ONDANSETRON 4 MG/2 ML VIAL IVP STA (19:42)
[2017-06-16] MEDS ORDERED: SODIUM CHLORIDE 0.9% 1,000 ML IV ONE (19:42)
[2017-06-16] MEDS ORDERED: cefTRIAXone 1 GM in SODIUM CHLORIDE 0.9% MINIBAG 100 ML IV STA (19:42)
[2017-06-16] MEDS ORDERED: HYDROmorphone 1 MG/ML SYRINGE ONE ×2 (19:51→21:49)
[2017-06-16] MEDS ORDERED: metroNIDAZOLE 500 MG/100 ML 500 MG/100 ML BAG ONE (19:51)
[2017-06-16] MEDS ORDERED: ONDANSETRON 4 MG/2 ML VIAL ONE (19:51)
[2017-06-16] MEDS ORDERED: cefTRIAXone 1 GM VIAL ONE (19:51)
[2017-06-16 20:12] LABS: BASOPHILS % (AUTO) 0.2 %; EOSINOPHILS # (AUTO) 0.3 10^3/uL (0.0-0.7); EOSINOPHILS % (AUTO) 2.6 %; HCT - HEMATOCRIT 39.8 % (37.0-47.0); HGB - HEMOGLOBIN 13.3 g/dL (12.0-16.0); LYMPHOCYTES # (AUTO) 4.6 10^3/uL (1.5-3.5); LYMPHOCYTES % (AUTO) 38.9 %; MEAN CORPUSCULAR HEMOGLOBIN 30.3 pg (27.0-31.0); MEAN CORPUSCULAR HGB CONC 33.5 g/dL (32.0-36.0); MEAN CORPUSCULAR VOLUME 90.6 fL (81.0-99.0); MONOCYTES # (AUTO) 0.8 10^3/uL (0.0-1.0); MONOCYTES % (AUTO) 6.7 %; NEUTROPHILS # (AUTO) 6.1 10^3/uL (1.5-6.6); NEUTROPHILS % (AUTO) 51.6 %; RED BLOOD COUNT 4.39 10^6/uL (4.20-5.40); RED CELL DISTRIBUTION WIDTH 12.3 % (12.0-15.0); UNCORRECTED WHITE BLOOD COUNT 11.9 x10^3/uL; WHITE BLOOD COUNT 11.9 x10^3/uL (4.8-10.8)
[2017-06-16 20:24] LABS: ALBUMIN/GLOBULIN RATIO 1.3 (1.0-2.2); BILIRUBIN,TOTAL 0.3 mg/dL (0.2-1.0); CALCIUM 9.3 mg/dL (8.5-10.3); CREATININE 0.6 mg/dL (0.4-1.0); POTASSIUM 2.9 mmol/L (3.5-5.0); TOTAL PROTEIN 6.8 g/dL (6.7-8.2)
[2017-06-16] MEDS ORDERED: SODIUM CHLORIDE 0.9% 1,000 ML IV SCH (22:00)
[2017-06-16] MEDS ORDERED: diphenhydrAMINE 25 MG CAPSULE PO SCH (22:03)
[2017-06-16] MEDS ORDERED: diphenhydrAMINE 25 MG CAPSULE PO STA (22:03)
[2017-06-16] MEDS ORDERED: MORPHINE 2 MG/ML SYRINGE IVP PRN (22:05)
[2017-06-16] MEDS ORDERED: SODIUM CHLORIDE 0.9% 100ML 100 ML IV ONE (23:00)
[2017-06-16] MEDS ORDERED: POTASSIUM CHLORIDE 20 MEQ TABLET PO SCH (23:00)
[2017-06-16] MEDS: SODIUM CHLORIDE FLUSH 0.9% 10 ML SYRINGE IVP SCH (23:10)
[2017-06-16] MEDS: KETOROLAC 15 MG/ML VIAL IVP PRN (23:10)
[2017-06-16] MEDS: SODIUM CHLORIDE 0.9% 1,000 ML IV SCH (23:20)
[2017-06-16] MEDS: AMPICILLIN/SULBACTAM 3 GM in SODIUM CHLORIDE 0.9% MINIBAG 100 ML IV SCH (23:24)
[2017-06-16] MEDS: VENLAFAXINE ER 75 MG CAPSULE PO SCH (23:35)
[2017-06-17] MEDS ORDERED: metroNIDAZOLE 500 MG/100 ML 500 MG/100 ML BAG IV SCH
--- NOTE | 2017-06-17 00:18 | HISTORY & PHYSICAL EXAMINATION ---
DATE OF ADMISSION: 06/16/2017 CODE STATUS: FULL CODE. PRIMARY CARE PHYSICIAN: Kathleen Asher MD EXAM LIMITATIONS: None. RECORDS REVIEWED: Yes. SOURCE OF INFORMATION: The patient. CHIEF COMPLAINT: Left lower abdominal pain. ADVANCED DIRECTIVES: Note that the patient does not have advanced directive. HISTORY: The patient, a 57-year-old white female, began having left lower quadrant abdominal pain 2 days ago with diarrhea. She also had nausea and vomiting. It became progressively worse, bringing her into the ER. DRUG ALLERGIES 1. ADHESIVE TAPE. 2. VICODIN. HOME MEDICATIONS 1. Effexor 75 mg 1 tab p.o. 3 times a day. 2. Amlodipine 10 mg 1 tab p.o. every day. 3. [place] Thyroid 180 mg 1 tab p.o. every day. 4. Trazodone 50 mg 1 tab p.o. at bedtime. 5. Keflex 500 mg p.o. every 6 hours to treat diverticulitis. 6. Cipro 500 mg 1 tab p.o. b.i.d. to treat diverticulitis. 7. Flagyl 500 mg 1 tab p.o. t.i.d. to treat diverticulitis. 8. Promethazine 12.5 mg 1 tab p.o. every 6 hours p.r.n. nausea. PAST MEDICAL HISTORY: Depression/anxiety, hypertension, hypothyroidism, insomnia , breast cancer that was treated with bilateral radial mastectomy, chemotherapy and radiation. PAST SURGICAL HISTORY: Appendectomy, left fifth upper digit partial amputation, radical bilateral mastectomy and 8 lower back surgeries. FAMILY HISTORY: Mother and sister: Hypothyroidism. Father: Cancer (possibly lung cancer). Mother: Arrhythmia. SOCIAL HISTORY: She is . She has one child. 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 She never smoked. She drinks alcohol socially. She does not use recreational drugs. She lives at home. She has a history of using TENS unit and a cane. REVIEW OF SYSTEMS RESPIRATORY: No coughing, no shortness of breath. HEART: No palpitations. No chest pain. ABDOMEN: Diarrhea, nausea, and left lower quadrant pain. URINARY SYSTEM: No frequency, no burning urine. HEAD: No headaches. EYES: No blurred vision. EARS: No ear pain, no tinnitus. NOSE: No runny nose. THROAT: No pain or redness. MUSCULOSKELETAL: Lower back pain. JOINTS: No joint pain. NEUROLOGICAL: No dementia. No limb weakness. WEAKNESS AND FATIGUE: Yes. FEVER: Yes, that she had at home. PHYSICAL EXAMINATION VITAL SIGNS: On admission, temperature 37.4 degrees Celsius, pulse 87, respiratory rate 20, blood pressure 152/92, O2 saturation of 99% on room air. GENERAL: She is alert and cooperative. HEAD: Atraumatic, normocephalic. EYES: PERRLA, EOMI. NECK: Supple. No JVD, no bruits, no thyroid enlargement, no adenopathy. HEART: Regular rate and rhythm. LUNGS: Clear to auscultation. ABDOMEN: Positive for bowel sounds, soft, nontender. No rebound, no guarding. EXTREMITIES: Warm: No edema, +2 pedal pulses. She has 5/5 muscle strength in upper and lower extremities. NEUROLOGIC: She is oriented x3, follows commands, moves all 4 extremities. Cranial nerves 2-12 are intact. LABORATORY DATA: Sodium is 139. Potassium is 3.3. Chloride is 108. Bicarbonate is 22. BUN is 12. Creatinine 0.6. Glucose is 96. White blood cells are 10.2. Hemoglobin is 13.7. Hematocrit is 40.3. Platelets are 277,000. Glomerular filtration rate is 103. AST is 19. ALT is 19. Alkaline phosphatase is 79. Albumin is 4. IMAGING: CT of abdomen and pelvis taken on 06/15/2017 when the patient was seen in the ER for diverticulitis, demonstrated mild sigmoid colon diverticulitis. ASSESSMENT AND PLAN 1. Diverticulitis, that will be treated with IV Unasyn, IV Flagyl, IV 0.9 normal saline, IV morphine sulfate, and IV Toradol for pain. 2. Hypokalemia will be treated with potassium chloride. 3. Insomnia will be treated with Benadryl. 4. Depression/anxiety will be treated with Effexor. 5. Essential hypertension will be treated with Norvasc. 6. Nausea, p.r.n. Zofran. 7. Hypothyroidism will be treated with Korbel Thyroid. 8. For DVT prophylaxis, she will have SCDs and SQ Lovenox. 9. To prevent stress ulcers, she will be on IV Protonix. Her anticipated length of stay is 3 days. JOB #: [id number] EXT JOB #:[id number] [email or web address]
[2017-06-17] MEDS ORDERED: MORPHINE 2 MG/ML SYRINGE IVP ONE (03:30)
[2017-06-17] MEDS: metroNIDAZOLE 500 MG/100 ML 500 MG/100 ML BAG IV SCH ×4 (03:37→21:33)
[2017-06-17] MEDS: ONDANSETRON 4 MG/2 ML VIAL IVP PRN ×3 (03:39→20:53)
[2017-06-17] MEDS: AMPICILLIN/SULBACTAM 3 GM in SODIUM CHLORIDE 0.9% MINIBAG 100 ML IV SCH ×4 (04:43→21:00)
[2017-06-17] MEDS: SODIUM CHLORIDE FLUSH 0.9% 10 ML SYRINGE IVP SCH ×3 (05:17→21:01)
[2017-06-17] MEDS: KETOROLAC 15 MG/ML VIAL IVP PRN ×2 (06:16→23:35)
[2017-06-17] MEDS ORDERED: MORPHINE 2 MG/ML SYRINGE IVP PRN (07:30)
[2017-06-17 07:36] LABS: BASOPHILS # (AUTO) 0.1 10^3/uL (0.0-0.1); BASOPHILS % (AUTO) 1.5 %; EOSINOPHILS # (AUTO) 0.4 10^3/uL (0.0-0.7); EOSINOPHILS % (AUTO) 5.1 %; HCT - HEMATOCRIT 37.8 % (37.0-47.0); HGB - HEMOGLOBIN 12.8 g/dL (12.0-16.0); LYMPHOCYTES # (AUTO) 2.4 10^3/uL (1.5-3.5); MEAN CORPUSCULAR HEMOGLOBIN 30.1 pg (27.0-31.0); MEAN CORPUSCULAR HGB CONC 33.8 g/dL (32.0-36.0); MEAN PLATELET VOLUME 8.1 fL (7.9-10.8); MONOCYTES # (AUTO) 0.5 10^3/uL (0.0-1.0); MONOCYTES % (AUTO) 7.1 %; NEUTROPHILS # (AUTO) 3.5 10^3/uL (1.5-6.6); NEUTROPHILS % (AUTO) 51.3 %; NUCLEATED RED BLOOD CELLS AUTO 0.1 /100WBC; RED BLOOD COUNT 4.25 10^6/uL (4.20-5.40); RED CELL DISTRIBUTION WIDTH 12.5 % (12.0-15.0); UNCORRECTED WHITE BLOOD COUNT 6.9 x10^3/uL; WHITE BLOOD COUNT 6.9 x10^3/uL (4.8-10.8)
[2017-06-17 07:42] LABS: ALBUMIN/GLOBULIN RATIO 1.2 (1.0-2.2); BILIRUBIN,TOTAL 0.7 mg/dL (0.2-1.0); CREATININE 0.4 mg/dL (0.4-1.0); POTASSIUM 3.3 mmol/L (3.5-5.0); TOTAL PROTEIN 6.9 g/dL (6.7-8.2)
[2017-06-17] MEDS: POLYETHYLENE GLYCOL 3350 17 GM PACKET PO SCH (07:58)
[2017-06-17] MEDS: amLODIPine 5 MG TABLET PO SCH (08:16)
[2017-06-17] MEDS: PANTOPRAZOLE 40 MG VIAL IV SCH (08:16)
[2017-06-17] MEDS: VENLAFAXINE ER 75 MG CAPSULE PO SCH ×2 (08:16→20:53)
[2017-06-17] MEDS: THYROID 60 MG TABLET PO SCH (08:16)
[2017-06-17] MEDS: ENOXAPARIN 40 MG/0.4 ML SYRINGE SUBQ SCH (08:17)
[2017-06-17] MEDS: SODIUM CHLORIDE FLUSH 0.9% 10 ML SYRINGE IVP PRN ×3 (08:17→10:30)
[2017-06-17] MEDS ORDERED: POTASSIUM CHLORIDE 20 MEQ TABLET PO SCH (09:00)
[2017-06-17] MEDS: SODIUM CHLORIDE 0.9% 1,000 ML IV SCH ×2 (09:36→20:45)
[2017-06-17] MEDS: MORPHINE 2 MG/ML SYRINGE IVP PRN ×7 (10:30→23:31)
--- NOTE | 2017-06-17 15:05 | PROVIDER PROGRESS NOTE ---
Subjective - Prog Note Date Prog Note Date: 06/17/17 - Subjective Pt reports feeling: Improved Subjective: pt report she feel much better, no N/V/D. no fever, chill, chest pain, SOB. pt still report she had some mild abdominal pain at left lower quadrant. Current Medications - Current Medications Current Medications: Active Medications Amlodipine Besylate (Norvasc) 10 mg PO DAILY [facility] Last Admin: 06/17/17 08:16 Dose: 10 mg Enoxaparin Sodium (Lovenox) 40 mg SUBQ DAILY [facility] Last Admin: 06/17/17 08:17 Dose: 40 mg Ampicillin Sodium/Sulbactam (Sodium 3 gm/ Sodium Chloride) 100 mls @ 200 mls/ hr IV Q6H [facility] Last Infusion: 06/17/17 10:10 Dose: Infused Sodium Chloride (Normal Saline 0.9%) 1,000 mls @ 120 mls/hr IV .Q8H20M [facility] Last Infusion: 06/17/17 14:07 Dose: 120 mls/hr Metronidazole (Flagyl 500 Mg/100 Ml) 500 mg in 100 mls @ 100 mls/hr IV Q6H [facility] Last Infusion: 06/17/17 11:32 Dose: Infused Ketorolac Tromethamine (Toradol Inj) 15 mg IVP Q6H PRN PRN Reason: PAIN Stop: 06/21/17 22:59 Last Admin: 06/17/17 06:16 Dose: 15 mg Morphine Sulfate (Morphine) 2 mg IVP Q2H PRN PRN Reason: PAIN Last Admin: 06/17/17 14:49 Dose: 2 mg Ondansetron HCl (Zofran Inj) 4 mg IVP Q6H PRN PRN Reason: Nausea / Vomiting Last Admin: 06/17/17 10:29 Dose: 4 mg Pantoprazole Sodium (Protonix) 40 mg IV DAILY [facility] Last Admin: 06/17/17 08:16 Dose: 40 mg Polyethylene Glycol (Miralax) 17 gm PO DAILY [facility] Last Admin: 06/17/17 07:58 Dose: Not Given Sodium Chloride (Normal Saline Flush 0.9%) 10 ml IVP PRN PRN PRN Reason: NEEDED PER PROVIDER ORDERS Last Admin: 06/17/17 10:30 Dose: 10 ml Sodium Chloride (Normal Saline Flush 0.9%) 10 ml IVP Q8HR [facility] Last Admin: 06/17/17 13:09 Dose: Not Given Thyroid ([place] Thyroid) 180 mg PO DAILY [facility] Last Admin: 06/17/17 08:16 Dose: 180 mg Venlafaxine HCl (Effexor Er) 150 mg PO DAILY [facility] Last Admin: 06/17/17 08:16 Dose: 150 mg Venlafaxine HCl (Effexor Er) 75 mg PO QPM [facility] Last Admin: 06/16/17 23:35 Dose: 75 mg Thyroid,Pork [[place] Thyroid] 180 mg PO DAILY 06/06/15 Amlodipine Besylate [Norvasc] 10 mg PO DAILY 07/01/15 Trazodone HCl 200 mg PO QPM 02/19/16 Buspirone HCl 7.5 mg PO BID 06/17/17 Metronidazole 500 mg PO BID 06/17/17 Objective - Vital Signs/Intake & Output Reviewed Vital Signs: Yes Vital Signs: Vital Signs x48h Temp Pulse Resp BP Pulse Ox 06/17/17 07:24 37.2 C 73 16 153/81 H 98 Intake & Output: Intake & Output 06/14/17 06/15/17 06/16/17 06/17/17 23:59 23:59 23:59 23:59 Intake Total 3264 Output Total 150 1800 Balance -150 1464 - Objective General Appearance: positive: No acute distress, Alert. negative: Lethargic Eyes Bilateral: positive: Normal inspection, PERRL, EOMI, No lid inflammation, Conjunctivae nml ENT: positive: ENT inspection nml, Pharynx nml, No signs of dehydration, Purulent nasal drainage, Pharyngeal erythema, Oral lesions Neck: positive: Nml inspection, Thyroid nml, No JVD, Trachea midline. negative : Thyromegaly, Lymphadenopathy (R), Lymphadenopathy (L), Stiff neck, Carotid bruit, Swelling/bruising, Tracheal deviation Respiratory: positive: Chest non-tender, No respiratory distress, Breath sounds nml. negative: Wheezes, Rales, Rhonchi Cardiovascular: positive: Regular rate & rhythm, No murmur, No gallop. negative : Irregularly irregular, Extrasystoles, Tachycardia, Bradycardia, Systolic murmur, Diastolic murmur Peripheral Pulses: 2+ Radial (R), 2+ Radial (L), 2+ Dorsalis pedis (R), 2+ Dorsalis pedis (L) Abdomen: positive: Non-tender, Nml bowel sounds, No distention. negative: Tenderness, Guarding, Rebound Back: positive: Nml inspection. negative: CVA tenderness (R), CVA tenderness (L ) Skin: positive: Color nml, No rash, Warm, Dry. negative: Cyanosis, Diaphoresis , Pallor, Skin rash Extremities: positive: Non-tender, Full ROM, Nml appearance. negative: Pedal edema, Calf tenderness, Joint swelling, Zac's sign/cords Neurologic/Psychiatric: positive: Oriented x3, Motor nml, Sensation nml, Mood/ affect nml. negative: Weakness, Sensory loss, Facial droop, Slurred/abnml speech, Depressed mood/affect - Lab Results Fish Bones: 06/17/17 07:19 06/17/17 07:19 Other Labs: Lab Results x24hrs 06/17/17 06/17/17 Range/Units 07:19 07:19 WBC 6.9 (4.8-10.8) x10^3/uL RBC 4.25 (4.20-5.40) 10^6/uL Hgb 12.8 (12.0-16.0) g/dL Hct 37.8 (37.0-47.0) % MCV 89.0 (81.0-99.0) fL MCH 30.1 (27.0-31.0) pg MCHC 33.8 (32.0-36.0) g/dL RDW 12.5 (12.0-15.0) % Plt Count 262 (130-450) 10^3/uL MPV 8.1 (7.9-10.8) fL Neut # 3.5 (1.5-6.6) 10^3/uL Lymph # 2.4 (1.5-3.5) 10^3/uL [place] # 0.5 (0.0-1.0) 10^3/uL Eos # 0.4 (0.0-0.7) 10^3/uL Baso # 0.1 (0.0-0.1) 10^3/uL Absolute Nucleated RBC 0.00 x10^3/uL Nucleated RBC % 0.1 /100WBC Sodium 141 (135-145) mmol/L Potassium 3.3 L (3.5-5.0) mmol/L Chloride 109 (101-111) mmol/L Carbon Dioxide 23 (21-32) mmol/L Anion Gap 9.0 (6-13) BUN 7 (6-20) mg/dL Creatinine 0.4 (0.4-1.0) mg/dL Estimated GFR (MDRD) 165 (>89) Glucose 98 (70-100) mg/dL Calcium 9.0 (8.5-10.3) mg/dL Total Bilirubin 0.7 (0.2-1.0) mg/dL AST 19 (10-42) IU/L ALT 18 (10-60) IU/L Alkaline Phosphatase 68 (42-121) IU/L Total Protein 6.9 (6.7-8.2) g/dL Albumin 3.7 (3.2-5.5) g/dL Globulin 3.2 (2.1-4.2) g/dL Albumin/Globulin Ratio 1.2 (1.0-2.2) Assessment/Plan - Problem List (1) Diverticulitis Impression: pt report she feel much better, but still some abdominal pain of lower quadrant pain control with Morphin PRN continue IV unasyn, flagyl, IVF NS daily lab monitor, vital monitor (2) Hypokalemia Impression: improved to K3.3, continue replacement daily lab test monitor (3) Depression Impression: continue home meds effexor (4) HTN (hypertension) Impression: continue home meds, vital monitor, stable (5) Hypothyroid Impression: test TSH continue home meds [place] thyroid
[2017-06-18] MEDS: MORPHINE 2 MG/ML SYRINGE IVP PRN ×7 (02:51→16:42)
[2017-06-18] MEDS: ONDANSETRON 4 MG/2 ML VIAL IVP PRN ×2 (02:51→10:46)
[2017-06-18] MEDS: AMPICILLIN/SULBACTAM 3 GM in SODIUM CHLORIDE 0.9% MINIBAG 100 ML IV SCH ×3 (03:34→16:02)
[2017-06-18] MEDS: metroNIDAZOLE 500 MG/100 ML 500 MG/100 ML BAG IV SCH ×3 (04:21→16:38)
[2017-06-18] MEDS: SODIUM CHLORIDE FLUSH 0.9% 10 ML SYRINGE IVP SCH ×2 (05:18→08:35)
[2017-06-18] MEDS: SODIUM CHLORIDE 0.9% 1,000 ML IV SCH ×2 (06:47→08:26)
[2017-06-18 07:53] LABS: BASOPHILS # (AUTO) 0.1 10^3/uL (0.0-0.1); BASOPHILS % (AUTO) 1.2 %; EOSINOPHILS # (AUTO) 0.3 10^3/uL (0.0-0.7); EOSINOPHILS % (AUTO) 4.7 %; HCT - HEMATOCRIT 40.1 % (37.0-47.0); HGB - HEMOGLOBIN 13.6 g/dL (12.0-16.0); LYMPHOCYTES # (AUTO) 2.8 10^3/uL (1.5-3.5); LYMPHOCYTES % (AUTO) 37.6 %; MEAN CORPUSCULAR HEMOGLOBIN 30.1 pg (27.0-31.0); MEAN CORPUSCULAR HGB CONC 33.8 g/dL (32.0-36.0); MEAN PLATELET VOLUME 8.3 fL (7.9-10.8); MONOCYTES # (AUTO) 0.5 10^3/uL (0.0-1.0); NEUTROPHILS # (AUTO) 3.7 10^3/uL (1.5-6.6); NEUTROPHILS % (AUTO) 49.5 %; NUCLEATED RED BLOOD CELLS AUTO 0.1 /100WBC; RED BLOOD COUNT 4.51 10^6/uL (4.20-5.40); RED CELL DISTRIBUTION WIDTH 12.3 % (12.0-15.0); UNCORRECTED WHITE BLOOD COUNT 7.4 x10^3/uL; WHITE BLOOD COUNT 7.4 x10^3/uL (4.8-10.8)
[2017-06-18 08:08] LABS: ALBUMIN/GLOBULIN RATIO 1.3 (1.0-2.2); BILIRUBIN,TOTAL 0.7 mg/dL (0.2-1.0); CALCIUM 9.5 mg/dL (8.5-10.3); CREATININE 0.5 mg/dL (0.4-1.0); POTASSIUM 3.6 mmol/L (3.5-5.0)
[2017-06-18] MEDS: KETOROLAC 15 MG/ML VIAL IVP PRN ×2 (08:23→14:24)
[2017-06-18] MEDS: THYROID 60 MG TABLET PO SCH (08:28)
[2017-06-18] MEDS: amLODIPine 5 MG TABLET PO SCH (08:30)
[2017-06-18] MEDS: VENLAFAXINE ER 75 MG CAPSULE PO SCH (08:30)
[2017-06-18] MEDS: POLYETHYLENE GLYCOL 3350 17 GM PACKET PO SCH (08:31)
[2017-06-18] MEDS: PANTOPRAZOLE 40 MG VIAL IV SCH (08:33)
[2017-06-18] MEDS: ENOXAPARIN 40 MG/0.4 ML SYRINGE SUBQ SCH (08:35)
--- NOTE | 2017-06-18 13:28 | Discharge Plan ---
Discharge Plan Disposition: 01 Home, Self Care Condition: Stable Prescriptions: Ciprofloxacin HCl [Cipro] 500 mg PO BID #12 tablet Metronidazole 500 mg PO BID #12 tablet Diet: Regular Activity Restrictions: Activity as Tolerated Shower Restrictions: No Driving Restrictions: No Weight Bearing: Full Weight Additional Instructions or Follow Up instructions: May see PCP in one week, have blood TSH test in one week. Pt state she took too much [place] Thyroid for one week. TSH test in the hospital is significantly very lower. Patient is advised: resume of [place] Thyroid until she see her PCP. Follow-[place] Care: [facility] [place] [facility] No Smoking: If you smoke, Please STOP! Call for help. Follow-up with: Kathleen Asher MD [Primary Care Provider] -
--- NOTE | 2017-06-18 15:32 | DISCHARGE SUMMARY ---
Discharge Summary Admit Date: 06/16/17 Discharge Date: 06/18/17 Discharging Provider: BURT Primary Care Provider: Kathleen Buchanan Code Status: Attempt Resuscitation Condition at Discharge: Stable Discharge Disposition: 01 Home, Self Care Discharge Facility Name: home - DIAGNOSES Admission Diagnoses: (1) Diverticulitis (2) Hypokalemia (3) Depression (4) HTN (hypertension) (5) Hypothyroid Discharge Diagnoses with Status of Each Condition: (1) Diverticulitis pt state her pain is good controlled. No nausea, vomiting or diarrhea, no blood stool. Pt state she did not have Kflex and Flagyl at home. Pt is prescribed antibiotics to finish the course. (2) Hypokalemia resolved (3) Depression stable, (4) HTN (hypertension) stable (5) Hypothyroid pt state she took too much armour thyroid for one week. Her TSH test today is significantly very lower, but T3/T4 is normal, pt is asymptomatic. Pt is advised to hold [place] Thyroid until see her PCP. - HPI History of Present Illness: please refer to Dr. Echeverria's HPI on 06/16/17 - HOSPITAL COURSE Hospital Course: pt was admitted for diverticulitis. Pt was treated with antibiotics. Pt state she feel much better, vital is stable, pain is controlled, no nausea, no vomiting, no diarrhea. She request to be D/C home today. pt state she took too much armour thyroid for one week. Her TSH test today is significantly very lower , but T3/T4 is normal, pt is asymptomatic. Pt is advised to hold [place] Thyroid until see her PCP - ALLERGIES Allergies/Adverse Reactions: Allergies Allergy/AdvReac Type Severity Reaction Status Date / Time adhesive tape Allergy Rash Verified 04/23/17 15:57 acetaminophen [From Vicodin] AdvReac Itching Verified 04/23/17 15:57 codeine AdvReac Nausea Verified 04/23/17 15:57 hydrocodone bitartrate * AdvReac Itching Verified 04/23/17 15:57 [From Vicodin] - MEDICATIONS Home Medications: Ambulatory Orders Medication Instructions Recorded Confirmed Amlodipine Besylate [Norvasc] 10 mg PO DAILY 07/01/15 06/17/17 Naproxen 375 mg PO BID #15 tablet 06/15/17 06/17/17 Venlafaxine HCl [Venlafaxine HCl 75 mg PO DAILY PM 10/10/17 10/10/17 ER] Venlafaxine HCl [Venlafaxine HCl 150 mg PO DAILY 06/17/17 06/17/17 ER] Ciprofloxacin HCl [Cipro] 500 mg PO BID #12 tablet 06/18/17 Metronidazole 500 mg PO BID #12 tablet 06/18/17 - PHYSICAL EXAM AT DISCHARGE General Appearance: positive: No acute distress, Alert. negative: Lethargic Eyes Bilateral: positive: Normal inspection, PERRL, EOMI, No lid inflammation, Conjunctivae nml ENT: positive: ENT inspection nml, Pharynx nml, No signs of dehydration. negative: Purulent nasal drainage, Pharyngeal erythema, Oral lesions Neck: positive: Nml inspection, Thyroid nml, No JVD, Trachea midline. negative : Thyromegaly, Lymphadenopathy (R), Lymphadenopathy (L), Stiff neck, Carotid bruit, Swelling/bruising, Tracheal deviation Respiratory: positive: Chest non-tender, No respiratory distress, Breath sounds nml. negative: Wheezes, Rales, Rhonchi Cardiovascular: positive: Regular rate & rhythm, No murmur, No gallop. negative : Irregularly irregular, Extrasystoles, Tachycardia, Bradycardia, Systolic murmur, Diastolic murmur Peripheral Pulses: positive: 2+ Abdomen: positive: Non-tender, Nml bowel sounds, No distention. negative: Tenderness, Guarding, Rebound Back: positive: Nml inspection. negative: CVA tenderness (R), CVA tenderness (L ) Skin: positive: Color nml, No rash, Warm, Dry. negative: Cyanosis, Diaphoresis , Pallor, Skin rash Extremities: positive: Non-tender, Full ROM, Nml appearance. negative: Calf tenderness, Zac's sign/cords Neurologic/Psychiatric: positive: Oriented x3, Motor nml, Sensation nml, Mood/ affect nml. negative: Sensory loss, Facial droop, Slurred/abnml speech, Depressed mood/affect - LABS Result Diagrams: 06/18/17 05:27 06/18/17 05:27 - FOLLOW UP Follow Up: May see PCP in one week, have blood TSH test in one week. Pt is prescribed antibiotics to finish the course. pt is advised to hold [place] Thyroid until she see her PCP.
[2017-06-18 15:40] VITALS: BP 126/75
== END 2017-06-18 17:30 | disposition home or self-care (01) | DRG 392 ==
LOC: ED 17:20 → MS3 21:53
PROVIDERS: ATTEND Nurse Practitioner Gerontology
DX: K57.32 Diverticulitis of large intestine without perforation or abscess without bleeding (principal); E87.6 Hypokalemia; F32.9 Major depressive disorder, single episode, unspecified; I10 Essential (primary) hypertension; E03.9 Hypothyroidism, unspecified; F41.9 Anxiety disorder, unspecified; G47.00 Insomnia, unspecified; Z85.3 Personal history of malignant neoplasm of breast; Z92.21 Personal history of antineoplastic chemotherapy; Z92.3 Personal history of irradiation; Z90.13 Acquired absence of bilateral breasts and nipples
CPT/HCPCS: 36415; 80053; 83690; 83735; 84439; 84443; 84481; 85025; 96365; 96368; 96375; 96376; 99283; 99284

== ENCOUNTER 2017-08-10 13:49 | Emergency (ER) | payer OTHER ==
[2017-08-10] MEDS ORDERED: SODIUM CHLORIDE 0.9% 500 ML IV ONE (15:34)
[2017-08-10] MEDS ORDERED: MORPHINE 10 MG/ML VIAL IVP STA ×2 (15:34→18:05)
[2017-08-10] MEDS ORDERED: ONDANSETRON 4 MG/2 ML VIAL IVP STA (15:34)
[2017-08-10] MEDS ORDERED: ONDANSETRON ODT 4 MG TABLET TL STA (15:46)
--- NOTE | 2017-08-10 15:46 | ED Physician Documentation ---
PD HPI ABD PAIN - Stated complaint Stated Complaint: ABD PAIN - Chief complaint Chief Complaint: Abd Pain - Additional information Additional information: 57-year-old female presents to the emergency department withLeft lower quadrant suprapubic pain beginning last night associated with diarrhea and vomiting. This feels similar to her prior episodes of diverticulitis which have happened twice.She has had no change in her urination. No blood in bowel movements or vomit. 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: Breast cancer : None HEENT: None Psych: Depression, Anxiety, ADD/ADHD Musculoskeletal: Osteoarthritis, Chronic back pain Derm: None - Past Surgical History Past Surgical History: Yes General: Appendectomy Ortho: Spine surgery /MASTER SHEET CLERK: Mastectomy - Present Medications Home Medications: Ambulatory Orders Medication Instructions Recorded Confirmed Venlafaxine HCl [Venlafaxine HCl 75 mg PO DAILY PM 06/17/17 08/10/17 ER] Ciprofloxacin HCl [Cipro] 500 mg PO BID #20 tablet 08/10/17 Metronidazole [Flagyl] 500 mg PO TID #30 tablet 08/10/17 Ondansetron Odt [Zofran] 4 mg TL Q6H PRN #20 tablet 08/10/17 Oxycodone HCl/Acetaminophen 1 - 2 each PO Q6H PRN #17 tablet 08/10/17 [Percocet 5-325 mg Tablet] hydroCHLOROthiazide 25 mg PO DAILY 08/10/17 08/10/17 [Hydrochlorothiazide] - Allergies Allergies/Adverse Reactions: Allergies Allergy/AdvReac Type Severity Reaction Status Date / Time adhesive tape Allergy Rash Verified 04/23/17 15:57 hydrocodone bitartrate * AdvReac Itching Verified 04/23/17 15:57 [From Vicodin] - Social History Does the pt smoke?: No Smoking Status: Never smoker Does the pt drink ETOH?: No Does the pt have substance abuse?: No - Immunizations Immunizations are current?: Yes - POLST Patient has POLST: No PD ED PE NORMAL - Vitals Vital signs reviewed: Yes - General General: Alert and oriented X 3, No acute distress - HEENT HEENT: PERRL - Neck Neck: Supple, no meningeal sign - Cardiac Cardiac: RRR, No murmur - Respiratory Respiratory: Clear bilaterally - Abdomen Abdomen: Normal bowel sounds, Soft, Non distended, Other (mild LLQ TTP without guarding or rebound) - Derm Derm: Warm and dry - Extremities Extremities: No deformity - Neuro Neuro: Alert and oriented X 3 - Psych Psych: Normal mood, Normal affect Results - Vitals Vitals: Oxygen O2 Source Room air - Labs Labs: Laboratory Tests 08/10/17 08/10/17 08/10/17 16:30 16:30 17:30 WBC 12.5 H RBC 4.93 Hgb 14.7 Hct 43.6 MCV 88.4 MCH 29.9 MCHC 33.9 RDW 13.4 Plt Count 279 MPV 8.0 Neut # 7.1 H Lymph # 4.2 H Fisher # 0.9 Eos # 0.1 Baso # 0.2 H Absolute Nucleated RBC 0.01 Nucleated RBC % 0.1 Sodium 141 Potassium 3.3 L Chloride 107 Carbon Dioxide 22 Anion Gap 12.0 BUN 12 Creatinine 0.5 Estimated GFR (MDRD) 127 Glucose 92 Calcium 9.9 Total Bilirubin 0.6 AST 23 ALT 21 Alkaline Phosphatase 74 Total Protein 7.6 Albumin 4.2 Globulin 3.4 Albumin/Globulin Ratio 1.2 Lipase 13 L Urine Color YELLOW Urine Clarity CLEAR Urine pH 6.0 Ur Specific [place] 1.025 Urine Protein NEGATIVE Urine Glucose (UA) NEGATIVE Urine Ketones NEGATIVE Urine Occult Blood NEGATIVE Urine Nitrite NEGATIVE Urine Bilirubin NEGATIVE Urine Urobilinogen 0.2 (NORMAL) Ur Leukocyte Esterase NEGATIVE Urine RBC 0-5 Urine WBC 0-3 Ur Squamous Epith Cells MANY Squamous H Urine Bacteria Few Urine Casts 3-5 Hyaline Casts Urine Mucus Marked Strands Urine Culture Comments NOT INDICATED PD MEDICAL DECISION MAKING - ED course ED course: 57-year-old female with history of diverticulitis presents to the emergency department with symptoms typical of her previous episodes of diverticulitis for 1 day. Patient's abdominal exam is benign, she is well-appearing I do not suspect that she has a complication such as abscess or perforation at this time given approximately 24 hours or less of symptoms.She understands return precautions for worsening symptoms.She will be treated with antibiotics, antiemetics, pain control and follow-up with her primary doctor this week. Departure - Departure Disposition: 01 Home, Self Care Clinical Impression: Diverticulitis of gastrointestinal tract, Abdominal pain, Vomiting, Diverticulitis Condition: Good Instructions: ED Diverticulitis Follow-Up: Kathleen Asher MD [Primary Care Provider] - Prescriptions: Ciprofloxacin HCl [Cipro] 500 mg PO BID #20 tablet Metronidazole [Flagyl] 500 mg PO TID #30 tablet Ondansetron Odt [Zofran] 4 mg TL Q6H PRN #20 tablet PRN Reason: Nausea / Vomiting Oxycodone HCl/Acetaminophen [Percocet 5-325 mg Tablet] 1 - 2 each PO Q6H PRN # 17 tablet PRN Reason: Pain Comments: Make an appointment for you your primary care provider for later this week for recheck. You likely have diverticulitis.Your symptoms do not improve on antibiotics or if you have worsening symptoms you may need to have a CT scan. We did not do a CT scan today because her symptoms have only been present for 24 hours. If you have worsening symptoms you should return to the emergency department such as severe pain, inability to eat or drink. You were given antibiotics to take to treat your diverticulitis at home. You were also given pain medication and nausea medication. Forms: Activity restrictions Discharge Date/Time: 08/10/17 18:51
[2017-08-10] MEDS ORDERED: MORPHINE 10 MG/ML VIAL ONE ×2 (15:52→18:20)
[2017-08-10] MEDS ORDERED: ONDANSETRON 4 MG/2 ML VIAL ONE (15:52)
[2017-08-10] MEDS ORDERED: ONDANSETRON ODT 4 MG TABLET ONE (15:53)
[2017-08-10 16:39] LABS: BASOPHILS # (AUTO) 0.2 10^3/uL (0.0-0.1); BASOPHILS % (AUTO) 1.2 %; EOSINOPHILS # (AUTO) 0.1 10^3/uL (0.0-0.7); EOSINOPHILS % (AUTO) 1.1 %; HCT - HEMATOCRIT 43.6 % (37.0-47.0); HGB - HEMOGLOBIN 14.7 g/dL (12.0-16.0); LYMPHOCYTES # (AUTO) 4.2 10^3/uL (1.5-3.5); LYMPHOCYTES % (AUTO) 33.4 %; MEAN CORPUSCULAR HEMOGLOBIN 29.9 pg (27.0-31.0); MEAN CORPUSCULAR HGB CONC 33.9 g/dL (32.0-36.0); MEAN CORPUSCULAR VOLUME 88.4 fL (81.0-99.0); MONOCYTES # (AUTO) 0.9 10^3/uL (0.0-1.0); MONOCYTES % (AUTO) 7.1 %; NEUTROPHILS # (AUTO) 7.1 10^3/uL (1.5-6.6); NEUTROPHILS % (AUTO) 57.2 %; NUCLEATED RED BLOOD CELLS AUTO 0.1 /100WBC; RED BLOOD COUNT 4.93 10^6/uL (4.20-5.40); RED CELL DISTRIBUTION WIDTH 13.4 % (12.0-15.0); UNCORRECTED WHITE BLOOD COUNT 12.5 x10^3/uL; WHITE BLOOD COUNT 12.5 x10^3/uL (4.8-10.8)
[2017-08-10 16:49] LABS: ALBUMIN/GLOBULIN RATIO 1.2 (1.0-2.2); BILIRUBIN,TOTAL 0.6 mg/dL (0.2-1.0); CALCIUM 9.9 mg/dL (8.5-10.3); CREATININE 0.5 mg/dL (0.4-1.0); POTASSIUM 3.3 mmol/L (3.5-5.0); TOTAL PROTEIN 7.6 g/dL (6.7-8.2)
[2017-08-10 17:42] LABS: BILIRUBIN,URINE NEGATIVE (NEGATIVE)
[2017-08-10 18:03] LABS: WBC,URINE 0-3 /HPF (0-5)
[2017-08-10 18:04] LABS: UR CULTURE IF IND NOT INDICATED
[2017-08-10] MEDS ORDERED: CIPROFLOXACIN 250 MG TABLET PO STA (18:14)
[2017-08-10] MEDS ORDERED: metroNIDAZOLE 250 MG TABLET PO STA (18:15)
[2017-08-10 18:20] VITALS: BP 162/79
[2017-08-10] MEDS ORDERED: ONDANSETRON ODT 4 MG Prepack 2 TL PRN (18:27)
[2017-08-10] MEDS ORDERED: oxyCODONE/ACET 5/325 Prepack 4 PO STA (18:27)
[2017-08-10] MEDS ORDERED: CIPROFLOXACIN 250 MG TABLET PO ONE (18:29)
[2017-08-10] MEDS ORDERED: metroNIDAZOLE 250 MG TABLET PO ONE (18:29)
[2017-08-10] MEDS ORDERED: ONDANSETRON ODT 4 MG Prepack 2 TL ONE (18:37)
[2017-08-10] MEDS ORDERED: oxyCODONE/ACET 5/325 Prepack 4 PO ONE (18:37)
== END 2017-08-10 18:51 | disposition home or self-care (01) ==
LOC: ED 13:49
DX: K57.92 Diverticulitis of intestine, part unspecified, without perforation or abscess without bleeding (principal); R11.10 Vomiting, unspecified; R10.32 Left lower quadrant pain; I10 Essential (primary) hypertension; E03.9 Hypothyroidism, unspecified; G62.9 Polyneuropathy, unspecified
CPT/HCPCS: 36415; 80053; 81001; 83690; 85025; 96361; 96374; 96376; 99283; A9270; Q0162; 87086

== ENCOUNTER 2017-09-02 13:52 | Emergency (ER) | payer OTHER ==
[2017-09-02 14:06] VITALS: BP 171/106
[2017-09-02 15:02] LABS: BASOPHILS # (AUTO) 0.1 10^3/uL (0.0-0.1); BASOPHILS % (AUTO) 0.8 %; EOSINOPHILS % (AUTO) 0.4 %; HCT - HEMATOCRIT 42.6 % (37.0-47.0); HGB - HEMOGLOBIN 14.6 g/dL (12.0-16.0); LYMPHOCYTES # (AUTO) 2.5 10^3/uL (1.5-3.5); LYMPHOCYTES % (AUTO) 24.1 %; MEAN CORPUSCULAR HEMOGLOBIN 30.1 pg (27.0-31.0); MEAN CORPUSCULAR HGB CONC 34.1 g/dL (32.0-36.0); MEAN CORPUSCULAR VOLUME 88.2 fL (81.0-99.0); MONOCYTES # (AUTO) 0.6 10^3/uL (0.0-1.0); MONOCYTES % (AUTO) 6.2 %; NEUTROPHILS # (AUTO) 7.1 10^3/uL (1.5-6.6); NEUTROPHILS % (AUTO) 68.5 %; RED BLOOD COUNT 4.83 10^6/uL (4.20-5.40); RED CELL DISTRIBUTION WIDTH 13.6 % (12.0-15.0); UNCORRECTED WHITE BLOOD COUNT 10.4 x10^3/uL; WHITE BLOOD COUNT 10.4 x10^3/uL (4.8-10.8)
[2017-09-02 15:12] LABS: ALBUMIN/GLOBULIN RATIO 1.1 (1.0-2.2); BILIRUBIN,TOTAL 0.8 mg/dL (0.2-1.0); BUN - BLOOD UREA NITROGEN 11 mg/dL (6-20); CALCIUM 9.7 mg/dL (8.5-10.3); CARBON DIOXIDE - CO2 25 mmol/L (21-32); CHLORIDE 107 mmol/L (101-111); CREATININE 0.6 mg/dL (0.4-1.0); GFR - MDRD 103 (>89); GLUCOSE 99 mg/dL (70-100); LIPASE < 10 U/L (22-51); SODIUM 140 mmol/L (135-145); TOTAL PROTEIN 7.8 g/dL (6.7-8.2)
[2017-09-02 15:12] LABS: BILIRUBIN,URINE NEGATIVE (NEGATIVE)
[2017-09-02 15:14] LABS: UA w/ MICROSCOPIC CHARGE YES
[2017-09-02] MEDS ORDERED: oxyCOD/ACETAMIN 5 MG/325 MG TABLET PO STA (15:16)
[2017-09-02] MEDS ORDERED: AMOX/CLAV 875 MG/125 MG TABLET PO STA (15:16)
[2017-09-02] MEDS ORDERED: ONDANSETRON ODT 4 MG TABLET TL STA (15:16)
--- NOTE | 2017-09-02 15:19 | ED Physician Documentation ---
PD HPI ABD PAIN - Stated complaint Stated Complaint: VOMITING - Chief complaint Chief Complaint: Abd Pain - History obtained from History obtained from: Patient, Family - History of Present Illness Timing - onset: How many days ago (1) Timing - duration: Days (1) Timing - details: Gradual onset Pain level max: 6 Pain level now: 6 Quality: Aching, Pain Location: LLQ Improved by: Vomiting, BM (diarrhea, non-bloody) Worsened by: Eating Associated symptoms: Nausea, Vomiting, Diarrhea. No: Fever, Constipation, Melena, Hematochezia, Dysuria, Hematuria, Chest pain Similar symptoms before: Diagnosis (diverticulitis) Recently seen: Not recently seen - Additional information Additional information: states feels like her prior episodes of diverticulitis. 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 : None HEENT: None Psych: Depression, Anxiety, ADD/ADHD Musculoskeletal: Osteoarthritis, Chronic back pain Derm: None - Past Surgical History Past Surgical History: Yes General: Appendectomy Ortho: Spine surgery /AUDIO NARRATOR: Mastectomy - Present Medications Home Medications: Ambulatory Orders Medication Instructions Recorded Confirmed Venlafaxine HCl [Venlafaxine HCl 75 mg PO DAILY PM 06/17/17 09/02/17 ER] hydroCHLOROthiazide 25 mg PO DAILY 08/10/17 09/02/17 [Hydrochlorothiazide] Amox/Clav 875/125 [Augmentin] 1 each PO Q12H #20 tablet 09/02/17 Levothyroxine [Synthroid] 125 mcg PO QDAC 09/02/17 09/02/17 Ondansetron Odt [Zofran] 4 mg TL Q6H PRN #10 tablet 09/02/17 Oxycodone HCl/Acetaminophen 1 - 2 each PO Q6H PRN #14 tablet 09/02/17 [Percocet 5-325 mg Tablet] - Allergies Allergies/Adverse Reactions: Allergies Allergy/AdvReac Type Severity Reaction Status Date / Time adhesive tape Allergy Rash Verified 09/02/17 14:06 hydrocodone bitartrate * AdvReac Itching Verified 09/02/17 14:06 [From Vicodin] - Social History Does the pt smoke?: No Smoking Status: Never smoker Does the pt drink ETOH?: No Does the pt have substance abuse?: No - Immunizations Immunizations are current?: Yes - POLST Patient has POLST: No PD ED PE NORMAL - Vitals Vital signs reviewed: Yes - General General: Alert and oriented X 3, No acute distress, Well developed/nourished - HEENT HEENT: Moist mucous membranes - Neck Neck: Supple, no meningeal sign - Cardiac Cardiac: RRR, Strong equal pulses - Respiratory Respiratory: No respiratory distress, Clear bilaterally - Abdomen Abdomen: Soft, Non distended, Other (TTP LLQ, no peritoneal signs.) - Derm Derm: Warm and dry - Neuro Neuro: Alert and oriented X 3 - Psych Psych: Normal mood, Normal affect Results - Vitals Vitals: Vital Signs - 24 hr 09/02/17 14:03 Temperature 36.4 C L Heart Rate 84 Respiratory 18 Rate Blood Pressure 171/106 H O2 Saturation 97 Oxygen O2 Source Room air - Labs Labs: Laboratory Tests 09/02/17 09/02/17 09/02/17 14:50 14:50 15:00 WBC 10.4 RBC 4.83 Hgb 14.6 Hct 42.6 MCV 88.2 MCH 30.1 MCHC 34.1 RDW 13.6 Plt Count 272 MPV 8.0 Neut # 7.1 H Lymph # 2.5 [place] # 0.6 Eos # 0.0 Baso # 0.1 Absolute Nucleated RBC 0.00 Nucleated RBC % 0.0 Sodium 140 Potassium 3.0 L Chloride 107 Carbon Dioxide 25 Anion Gap 8.0 BUN 11 Creatinine 0.6 Estimated GFR (MDRD) 103 Glucose 99 Calcium 9.7 Total Bilirubin 0.8 AST 22 ALT 19 Alkaline Phosphatase 76 Total Protein 7.8 Albumin 4.0 Globulin 3.8 Albumin/Globulin Ratio 1.1 Lipase < 10 L Urine Color YELLOW Urine Clarity HAZY Urine pH 6.0 Ur Specific [place] 1.015 Urine Protein NEGATIVE Urine Glucose (UA) NEGATIVE Urine Ketones NEGATIVE Urine Occult Blood NEGATIVE Urine Nitrite NEGATIVE Urine Bilirubin NEGATIVE Urine Urobilinogen 0.2 (NORMAL) Ur Leukocyte Esterase TRACE H Urine RBC 0-5 Urine WBC 11-25 H Ur Squamous Epith Cells MANY Squamous H Urine Bacteria Many H Ur Microscopic Review INDICATED Urine Culture Comments NOT INDICATED PD MEDICAL DECISION MAKING - ED course Complexity details: reviewed old records, reviewed results, re-evaluated patient , considered differential, d/w patient ED course: Patient is a 57-year-old female who presents to the emergency department what appears to be recurrent diverticulitis. She has had this several times in the past. Symptoms only been present approximately 2 days, therefore doubt perforation or abscess at this time. She is well-appearing, nontoxic. Afebrile. Will place her on antibiotics for home and follow-up with her doctor. Will hold CT scan at this time as she has had several CT scans in the past for this. Patient counseled regarding signs and symptoms for which I believe and urgent re-evaluation would be necessary. Patient with good understanding of and agreement to plan and is comfortable going home at this time This document was made in part using voice recognition software. While efforts are made to proofread this document, sound alike and grammatical errors may occur. Departure - Departure Disposition: 01 Home, Self Care Clinical Impression: Diverticulitis Condition: Good Instructions: ED Diverticulitis Follow-Up: Kathleen Asher MD [Primary Care Provider] - Within 1 week Prescriptions: Amox/Clav 875/125 [Augmentin] 1 each PO Q12H #20 tablet Ondansetron Odt [Zofran] 4 mg TL Q6H PRN #10 tablet PRN Reason: Nausea / Vomiting Oxycodone HCl/Acetaminophen [Percocet 5-325 mg Tablet] 1 - 2 each PO Q6H PRN # 14 tablet PRN Reason: pain Comments: Return if you worsen. Take all antibiotics until gone. Do not drink alcohol or drive while on narcotic pain medicine. Note that many narcotic pain relievers also contain tylenol/acetaminophen. Please ensure that your total dose of acetaminophen from all sources does not exceed 3 grams (3000mg) per day. You may constipated on this medication, take a stool softener such as "Colace" twice a day while you are on it. Also recommend a xrko-col-edzcakk laxative such as senna or MiraLAX any day that you do not have a bowel movement. If you received narcotic pain medication in the emergency department, do not drive or operate machinery for the next 24 hours. Discharge Date/Time: 09/02/17 15:38
[2017-09-02 15:28] LABS: UR CULTURE IF IND NOT INDICATED
== END 2017-09-02 15:38 | disposition home or self-care (01) ==
LOC: ED 13:52
DX: K57.92 Diverticulitis of intestine, part unspecified, without perforation or abscess without bleeding (principal); I10 Essential (primary) hypertension; E03.9 Hypothyroidism, unspecified
CPT/HCPCS: 36415; 80053; 81001; 83690; 85025; 99283; 99284; A9270; Q0162; 81003; 87086

== ENCOUNTER 2017-10-11 07:59 | Emergency (ER) | payer OTHER ==
[2017-10-11 08:49] LABS: BASOPHILS # (AUTO) 0.1 10^3/uL (0.0-0.1); BASOPHILS % (AUTO) 1.3 %; EOSINOPHILS # (AUTO) 0.1 10^3/uL (0.0-0.7); EOSINOPHILS % (AUTO) 2.3 %; HGB - HEMOGLOBIN 15.3 g/dL (12.0-16.0); LYMPHOCYTES # (AUTO) 2.3 10^3/uL (1.5-3.5); LYMPHOCYTES % (AUTO) 36.3 %; MEAN CORPUSCULAR HEMOGLOBIN 30.3 pg (27.0-31.0); MEAN CORPUSCULAR HGB CONC 33.6 g/dL (32.0-36.0); MEAN CORPUSCULAR VOLUME 90.1 fL (81.0-99.0); MEAN PLATELET VOLUME 7.9 fL (7.9-10.8); MONOCYTES # (AUTO) 0.3 10^3/uL (0.0-1.0); MONOCYTES % (AUTO) 4.8 %; NEUTROPHILS # (AUTO) 3.5 10^3/uL (1.5-6.6); NEUTROPHILS % (AUTO) 55.3 %; PLT - PLATELET COUNT 327 10^3/uL (130-450); RED BLOOD COUNT 5.05 10^6/uL (4.20-5.40); RED CELL DISTRIBUTION WIDTH 13.2 % (12.0-15.0); WHITE BLOOD COUNT 6.3 x10^3/uL (4.8-10.8)
[2017-10-11] MEDS ORDERED: SODIUM CHLORIDE 0.9% 1,000 ML IV ONE ×2 (08:53→10:34)
[2017-10-11] MEDS ORDERED: ONDANSETRON 4 MG/2 ML VIAL IVP STA ×2 (08:53→10:34)
[2017-10-11] MEDS ORDERED: AMPICILLIN/SULBACTAM 3 GM in SODIUM CHLORIDE 0.9% MINIBAG 100 ML IV STA (08:53)
[2017-10-11] MEDS ORDERED: MORPHINE 2 MG/ML CARPUJECT IVP STA ×3 (08:54→11:30)
--- NOTE | 2017-10-11 09:01 | ED Physician Documentation ---
PD HPI ABD PAIN - Stated complaint Stated Complaint: LEFT SIDE ABD PX - Chief complaint Chief Complaint: Abd Pain - History obtained from History obtained from: Patient - History of Present Illness Timing - onset: How many days ago (2) Timing - duration: Days (2) Timing - details: Gradual onset, Still present Quality: Sharp, Pain Location: LLQ Improved by: Laying still Worsened by: Moving, Position, Palpation Associated symptoms: Nausea Similar symptoms before: Diagnosis (diverticulitis) Recently seen: Not recently seen - Additional information Additional information: 57-year-old female with history of chronic back pain has developed left lower quadrant abdominal pain similar to what she has had previously with diverticulitis. She has developed symptoms about 2 days ago and she has some nausea. She has not had vomiting. She has not had fever or chills. She had last episode of diverticulitis 2 months ago at that time CT scan was not obtained. Review of Systems Constitutional: reports: Chills, Fatigue. denies: Fever Eyes: denies: Decreased vision Ears: denies: Ear pain Nose: denies: Congestion Throat: denies: Sore throat Cardiac: denies: Chest pain / pressure, Palpitations Respiratory: denies: Dyspnea, Cough GI: reports: Abdominal Pain, Nausea, Diarrhea. 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 : None HEENT: None Psych: Depression, Anxiety, ADD/ADHD Musculoskeletal: Osteoarthritis, Chronic back pain Derm: None - Past Surgical History Past Surgical History: Yes General: Appendectomy Ortho: Spine surgery /CONCHE OPERATOR: Mastectomy - Present Medications Home Medications: Ambulatory Orders Medication Instructions Recorded Confirmed Venlafaxine HCl [Venlafaxine HCl 75 mg PO DAILY PM 06/17/17 09/02/17 ER] hydroCHLOROthiazide 25 mg PO DAILY 08/10/17 09/02/17 [Hydrochlorothiazide] Amox/Clav 875/125 [Augmentin] 1 each PO Q12H #20 tablet 09/02/17 Levothyroxine [Synthroid] 125 mcg PO QDAC 09/02/17 09/02/17 Ondansetron Odt [Zofran] 4 mg TL Q6H PRN #10 tablet 09/02/17 Oxycodone HCl/Acetaminophen 1 - 2 each PO Q6H PRN #14 tablet 09/02/17 [Percocet 5-325 mg Tablet] Amox/Clav 875/125 [Augmentin] 1 each PO Q12H #20 tablet 10/11/17 Ondansetron Odt [Zofran] 4 mg TL Q6H PRN #10 tablet 10/11/17 - Allergies Allergies/Adverse Reactions: Allergies Allergy/AdvReac Type Severity Reaction Status Date / Time adhesive tape Allergy Rash Verified 10/11/17 08:07 hydrocodone bitartrate * AdvReac Itching Verified 10/11/17 08:07 [From Vicodin] - Social History Does the pt smoke?: No Smoking Status: Never smoker Does the pt drink ETOH?: No Does the pt have substance abuse?: No - Immunizations Immunizations are current?: Yes - POLST Patient has POLST: No PD ED PE NORMAL - Vitals Vital signs reviewed: Yes (Hypertensive) - General General: Alert and oriented X 3, Well developed/nourished, Other (The patient is laying in the position on the gurney moaning in pain.) - HEENT HEENT: Atraumatic, PERRL, EOMI - Neck Neck: Supple, no meningeal sign - Cardiac Cardiac: RRR, No murmur - Respiratory Respiratory: No respiratory distress, Clear bilaterally - Abdomen Abdomen: Soft, Other (Left lower quadrant tenderness to palpation with some guarding no rebound tenderness no referred tenderness and no other specific tenderness in the abdomen.) - Back Back: No CVA TTP, No spinal TTP - Derm Derm: Normal color, Warm and dry, No rash - Extremities Extremities: No deformity, No edema - Neuro Neuro: No motor deficit, No sensory deficit Eye Opening: Spontaneous Motor: Obeys Commands Verbal: Oriented GCS Score: 15 - Psych Psych: Normal mood, Normal affect Results - Vitals Vitals: Vital Signs - 24 hr 10/11/17 10/11/17 10/11/17 08:06 09:43 10:51 Temperature 36.4 C L Heart Rate 100 78 88 Respiratory 18 18 18 Rate Blood Pressure 144/103 H 133/87 H 156/93 H O2 Saturation 99 97 99 02/03/18 11:59 Temperature Heart Rate 83 Respiratory 18 Rate Blood Pressure 146/92 H O2 Saturation 99 Oxygen O2 Source Room air - Labs Labs: Laboratory Tests 10/11/17 10/11/17 10/11/17 08:25 08:25 10:45 WBC 6.3 RBC 5.05 Hgb 15.3 Hct 45.5 MCV 90.1 MCH 30.3 MCHC 33.6 RDW 13.2 Plt Count 327 MPV 7.9 Neut # 3.5 Lymph # 2.3 [place] # 0.3 Eos # 0.1 Baso # 0.1 Absolute Nucleated RBC 0.00 Nucleated RBC % 0.1 Sodium 139 Potassium 3.9 Chloride 104 Carbon Dioxide 23 Anion Gap 12.0 BUN 13 Creatinine 0.6 Estimated GFR (MDRD) 103 Glucose 107 H Calcium 10.0 Total Bilirubin 0.6 AST 23 ALT 17 Alkaline Phosphatase 77 Total Protein 7.6 Albumin 4.1 Globulin 3.5 Albumin/Globulin Ratio 1.2 Lipase 18 L Urine Color YELLOW Urine Clarity CLEAR Urine pH 8.0 H Ur Specific [place] 1.010 Urine Protein NEGATIVE Urine Glucose (UA) NEGATIVE Urine Ketones NEGATIVE Urine Occult Blood NEGATIVE Urine Nitrite NEGATIVE Urine Bilirubin NEGATIVE Urine Urobilinogen 0.2 (NORMAL) Ur Leukocyte Esterase NEGATIVE Ur Microscopic Review NOT INDICATED Urine Culture Comments NOT INDICATED - Rads (name of study) abd/pel without Radiology: Prelim report reviewed (Impression: CT changes consistent with mild sigmoid diverticulitis likely chronic in nature. No pericolonic abscess. No free air nor pneumatosis.), EMP read indepedently, See rad report Procedures - IVC sono (time) 0855 Bedside IVC sono: IVC measures (cm) (0.77), IVC collapsed c insp (cm) (complete) , Dehydration (est 2 liter deficit) PD MEDICAL DECISION MAKING - ED course Complexity details: reviewed results, re-evaluated patient, considered differential, d/w patient ED course: 57-year-old female with recurrent sigmoid diverticula lightest symptoms again today and CAT scan appears to show mild disease. She does have ADHD and has enhanced presentation of her symptoms. She is complaining of pain and 2 doses of morphine 5 mg is inadequate for pain relief for her. She also is dehydrated on interrogation of the inferior vena cava and 2 L of saline are administered. We will start her back on Augmentin and provide some pain medication for pain control. Departure - Departure Disposition: 01 Home, Self Care Clinical Impression: Diverticulitis Condition: Stable Instructions: ED Diverticulitis Follow-Up: Kathleen Asher MD [Primary Care Provider] - Prescriptions: Amox/Clav 875/125 [Augmentin] 1 each PO Q12H #20 tablet Ondansetron Odt [Zofran] 4 mg TL Q6H PRN #10 tablet PRN Reason: Nausea / Vomiting
[2017-10-11 09:16] LABS: ALBUMIN 4.1 g/dL (3.2-5.5); ALBUMIN/GLOBULIN RATIO 1.2 (1.0-2.2); BILIRUBIN,TOTAL 0.6 mg/dL (0.2-1.0); CREATININE 0.6 mg/dL (0.4-1.0); TOTAL PROTEIN 7.6 g/dL (6.7-8.2)
--- NOTE | 2017-10-11 10:07 | CT Preliminary Report ---
Exam: CT ABDOMEN/PELVIS W/O IMPRESSION: CT changes most consistent with mild sigmoid diverticulitis - likely chronic in nature. N o pericolonic abscess. No free air no pneumatosis. [facility] SITE ID: [id number]
--- NOTE | 2017-10-11 10:30 | CT Report ---
EXAM: CT ABDOMEN AND PELVIS WITHOUT CONTRAST EXAM DATE: 10/11/2017 09:34 AM. CLINICAL HISTORY: Left lower quadrant pain. COMPARISONS: 06/15/2017. TECHNIQUE: Routine helical CT imaging was performed through the abdomen and pelvis. IV contrast: None . Enteric contrast: No. Reconstructions: Coronal and sagittal. In accordance with CT protocol optimization, one or more of the following dose reduction techniques w ere utilized for this exam: automated exposure control, adjustment of mA and/or KV based on patient s ize, or use of iterative reconstructive technique. FINDINGS: Lung Bases: Unremarkable. Abdominal Organs: Noncontrast images of the abdominal organs are grossly unremarkable. Full character ization is limited by the lack of IV contrast. Peritoneal Cavity/Bowel: Colonic diverticulosis again noted. There is persistent focal thickening in the sigmoid colon with mild surrounding fat inflammation. This is suggestive of chronic diverticuliti s. No discrete abscess is noted. There is no free air nor pneumatosis. Pelvic Organs: Grossly unremarkable. Noncontrast images of the visualized pelvic organs are stable. Vasculature: Unremarkable. Bones: Intact lumbar fusion hardware. IMPRESSION: CT changes consistent with mild sigmoid diverticulitis - likely chronic in nature. No per icolonic abscess. No free air nor pneumatosis. [facility] Referring Provider Line: [phone] SITE ID: [id number]
[2017-10-11 11:07] LABS: BILIRUBIN,URINE NEGATIVE (NEGATIVE); GLUCOSE, URINE (UA) NEGATIVE (NEGATIVE); KETONES,URINE (UA) NEGATIVE (NEGATIVE); LEUKOCYTE ESTERASE, URINE NEGATIVE (NEGATIVE); NITRITE,URINE NEGATIVE (NEGATIVE); OCCULT BLOOD,URINE NEGATIVE (NEGATIVE); PROTEIN,URINE NEGATIVE (NEGATIVE); UROBILINOGEN,URINE 0.2 (NORMAL) E.U./dL (NORMAL)
[2017-10-11 11:10] LABS: CLARITY,URINE CLEAR (CLEAR)
[2017-10-11] MEDS ORDERED: MORPHINE 10 MG/ML VIAL IVP ONE (12:00)
[2017-10-11 12:01] VITALS: BP 146/92
== END 2017-10-11 12:13 | disposition home or self-care (01) ==
LOC: ED 07:59
DX: K57.32 Diverticulitis of large intestine without perforation or abscess without bleeding (principal); E86.0 Dehydration; I10 Essential (primary) hypertension; J45.909 Unspecified asthma, uncomplicated; E03.9 Hypothyroidism, unspecified; G62.9 Polyneuropathy, unspecified; M19.90 Unspecified osteoarthritis, unspecified site; Z85.3 Personal history of malignant neoplasm of breast
CPT/HCPCS: 36415; 74176; 80053; 81001; 81003; 83690; 85025; 87086; 96365; 96375; 96376; 99283; 99284

== ENCOUNTER 2017-11-03 05:10 | Emergency (ER) | payer OTHER ==
--- NOTE | 2017-11-03 05:23 | ED Physician Documentation ---
PD HPI ABD PAIN - Stated complaint Stated Complaint: ABDOMINAL PAIN - Chief complaint Chief Complaint: Abd Pain - History obtained from History obtained from: Patient - History of Present Illness Timing - onset: How many days ago ("couple of days" per patient) Timing - duration: Days Timing - details: Gradual onset, Still present, Waxing and waning Pain level now: 8 Quality: Pain Location: LLQ Radiation: Lower back Improved by: Laying still Worsened by: Moving, Palpation Associated symptoms: Nausea, Vomiting. No: Diarrhea, Constipation Similar symptoms before: Diagnosis (patient feels this is c/w her diverticulitis flares) Recently seen: Emergency Dept (T+R earlier this month for similar presentation.) - Additional information Additional information: patient c/o few days of LLQ pain which she feels is similar to previous episodes of diverticulitis. She was T+R from this ED earlier this month for similar symptoms, prescribed 10 days of augmentin. She says the pain never completely resolved; despite this, she has not arranged for f/u with her PMD. She says she has been here many times for this and "I need surgery"; however, she says she has not yet seen a surgeon because "they want the infection to clear first". She says she did not take any pain medication tonight because "I can't keep anything down". Review of Systems Constitutional: denies: Fever, Chills, Sweats Cardiac: reports: Reviewed and negative Respiratory: reports: Reviewed and negative GI: reports: Abdominal Pain, Nausea, Vomiting. denies: Constipation, Diarrhea PD PAST MEDICAL HISTORY - Past Medical History Cardiovascular: Hypertension Respiratory: Asthma, Shortness of breath Neuro: None, Peripheral neuropathy, Motion sickness Endocrine/Autoimmune: HyPOthyroidism GI: Diverticulitis RELIEF WORKER: Breast cancer : None HEENT: None Psych: Depression, Anxiety, ADD/ADHD Musculoskeletal: Osteoarthritis, Chronic back pain Derm: None - Past Surgical History Past Surgical History: Yes General: Appendectomy Ortho: Spine surgery /RELIEF WORKER: Mastectomy - Present Medications Home Medications: Ambulatory Orders Medication Instructions Recorded Confirmed Venlafaxine HCl [Venlafaxine HCl 75 mg PO DAILY PM 06/17/17 09/02/17 ER] hydroCHLOROthiazide 25 mg PO DAILY 08/10/17 09/02/17 [Hydrochlorothiazide] Levothyroxine [Synthroid] 125 mcg PO QDAC 09/02/17 09/02/17 Ciprofloxacin HCl [Cipro] 500 mg PO BID #14 tablet 11/03/17 Metronidazole [Flagyl] 500 mg PO TID #21 tablet 11/03/17 Ondansetron Odt [Zofran] 4 mg TL Q6H PRN #10 tablet 11/03/17 - Allergies Allergies/Adverse Reactions: Allergies Allergy/AdvReac Type Severity Reaction Status Date / Time adhesive tape Allergy Rash Verified 11/03/17 05:20 hydrocodone bitartrate * AdvReac Itching Verified 11/03/17 05:20 [From Vicodin] - Social History Does the pt smoke?: No Smoking Status: Never smoker Does the pt drink ETOH?: No Does the pt have substance abuse?: No - Immunizations Immunizations are current?: Yes - POLST Patient has POLST: No PD ED PE NORMAL - Vitals Vital signs reviewed: Yes - General General: Alert and oriented X 3, No acute distress, Well developed/nourished, Other (vomited shortly before I arrived into room, but not during my H+P) - HEENT HEENT: Moist mucous membranes - Neck Neck: Supple, no meningeal sign - Cardiac Cardiac: RRR, No murmur - Respiratory Respiratory: No respiratory distress, Clear bilaterally - Abdomen Abdomen: Normal bowel sounds, Soft, Non tender, Non distended - Back Back: No CVA TTP - Derm Derm: Normal color, Warm and dry, No rash - Extremities Extremities: No edema Results - Vitals Vitals: Vital Signs - 24 hr 11/03/17 11/03/17 11/03/17 05:13 06:18 06:50 Temperature 37.0 C Heart Rate 103 H 81 76 Respiratory 16 16 18 Rate Blood Pressure 134/105 H 140/94 H 147/92 H O2 Saturation 98 97 98 11/03/17 08:00 Temperature Heart Rate Respiratory 16 Rate Blood Pressure 139/83 H O2 Saturation 98 Oxygen O2 Source Room air - Labs Labs: Laboratory Tests 11/03/17 11/03/17 05:30 05:30 WBC 10.0 RBC 5.20 Hgb 15.4 Hct 46.9 MCV 90.1 MCH 29.6 MCHC 32.9 RDW 13.9 Plt Count 349 MPV 8.1 Neut # 6.5 Lymph # 2.8 [place] # 0.5 Eos # 0.1 Baso # 0.1 Absolute Nucleated RBC 0.00 Nucleated RBC % 0.0 Sodium 137 Potassium 3.4 L Chloride 104 Carbon Dioxide 25 Anion Gap 8.0 BUN 11 Creatinine 0.7 Estimated GFR (MDRD) 86 L Glucose 114 H Calcium 9.7 Total Bilirubin 0.6 AST 22 ALT 22 Alkaline Phosphatase 78 Total Protein 8.2 Albumin 4.2 Globulin 4.0 Albumin/Globulin Ratio 1.1 Lipase < 10 L PD MEDICAL DECISION MAKING - ED course Complexity details: reviewed old records, reviewed results, re-evaluated patient , considered differential, d/w patient ED course: Requests antinauseant and fluids, zofran and NS ordered. She asked if I had to wait for blood test results before pain medication would be ordered. I told her I would not have to wait and I would order Toradol. She refuses Toradol, says " I won't take it. It never works. Please, I need something else". Morphine 5mg IV ordered. zofran 8 mg iv for nausea. On reevaluation, results of tests were reviewed with patient. she asks for more zofran and pain medication. given zofran 4mg and another 5mg IV morphine. Because she has had diverticulitis on previous CT scans, will cover empirically rather than obtaining another CT at this time (exam is not c/w perforation nor abscess). Departure - Departure Disposition: 01 Home, Self Care Clinical Impression: Abdominal pain Condition: Good Instructions: Abdominal Pain Follow-Up: Kathleen Asher MD [Primary Care Provider] - Within 1 week Prescriptions: Ciprofloxacin HCl [Cipro] 500 mg PO BID #14 tablet Metronidazole [Flagyl] 500 mg PO TID #21 tablet Ondansetron Odt [Zofran] 4 mg TL Q6H PRN #10 tablet PRN Reason: Nausea / Vomiting Forms: Activity restrictions Discharge Date/Time: 11/03/17 08:43
[2017-11-03] MEDS ORDERED: MORPHINE 2 MG/ML CARPUJECT IVP STA ×2 (05:45→07:31)
[2017-11-03] MEDS ORDERED: AMPICILLIN/SULBACTAM 3 GM in SODIUM CHLORIDE 0.9% MINIBAG 100 ML IV STA (05:45)
[2017-11-03] MEDS ORDERED: SODIUM CHLORIDE 0.9% 1,000 ML IV STA (05:46)
[2017-11-03] MEDS ORDERED: ONDANSETRON 4 MG/2 ML VIAL IVP STA ×2 (05:46→07:31)
[2017-11-03 05:48] LABS: BASOPHILS # (AUTO) 0.1 10^3/uL (0.0-0.1); EOSINOPHILS # (AUTO) 0.1 10^3/uL (0.0-0.7); EOSINOPHILS % (AUTO) 1.3 %; HGB - HEMOGLOBIN 15.4 g/dL (12.0-16.0); LYMPHOCYTES # (AUTO) 2.8 10^3/uL (1.5-3.5); LYMPHOCYTES % (AUTO) 27.8 %; MEAN CORPUSCULAR HEMOGLOBIN 29.6 pg (27.0-31.0); MEAN CORPUSCULAR HGB CONC 32.9 g/dL (32.0-36.0); MEAN CORPUSCULAR VOLUME 90.1 fL (81.0-99.0); MEAN PLATELET VOLUME 8.1 fL (7.9-10.8); MONOCYTES # (AUTO) 0.5 10^3/uL (0.0-1.0); MONOCYTES % (AUTO) 4.6 %; NEUTROPHILS # (AUTO) 6.5 10^3/uL (1.5-6.6); NEUTROPHILS % (AUTO) 65.3 %; PLT - PLATELET COUNT 349 10^3/uL (130-450); RED CELL DISTRIBUTION WIDTH 13.9 % (12.0-15.0)
[2017-11-03 06:12] LABS: ALBUMIN 4.2 g/dL (3.2-5.5); ALBUMIN/GLOBULIN RATIO 1.1 (1.0-2.2); ALKALINE PHOSPHATASE 78 IU/L (42-121); ALT ALANINE AMINOTRANSFERASE 22 IU/L (10-60); AST ASPARTATE AMINOTRANSFERASE 22 IU/L (10-42); BILIRUBIN,TOTAL 0.6 mg/dL (0.2-1.0); BUN - BLOOD UREA NITROGEN 11 mg/dL (6-20); CALCIUM 9.7 mg/dL (8.5-10.3); CARBON DIOXIDE - CO2 25 mmol/L (21-32); CHLORIDE 104 mmol/L (101-111); CREATININE 0.7 mg/dL (0.4-1.0); GFR - MDRD 86 (>89); GLUCOSE 114 mg/dL (70-100); SODIUM 137 mmol/L (135-145); TOTAL PROTEIN 8.2 g/dL (6.7-8.2)
[2017-11-03 06:20] LABS: LIPASE < 10 U/L (22-51)
[2017-11-03 08:43] VITALS: BP 139/83
== END 2017-11-03 08:43 | disposition home or self-care (01) ==
LOC: ED 05:10
DX: R10.32 Left lower quadrant pain (principal); I10 Essential (primary) hypertension; E03.9 Hypothyroidism, unspecified; G62.9 Polyneuropathy, unspecified
CPT/HCPCS: 36415; 80053; 83690; 85025; 96361; 96365; 96375; 96376; 99283; 99284

== ENCOUNTER 2018-02-25 10:38 | Emergency (ER) | payer OTHER ==
--- NOTE | 2018-02-25 12:42 | ED Physician Documentation ---
PD HPI ABD PAIN - Stated complaint Stated Complaint: R SIDE ABD PX/VOMITING - Chief complaint Chief Complaint: Abd Pain - History obtained from History obtained from: Patient - History of Present Illness Timing - onset: Yesterday Timing - duration: Days (2) Timing - details: Abrupt onset, Still present, Constant Quality: Cramping, Aching, Pain Location: Suprapubic, LLQ Radiation: Lower back Improved by: No: Eating Worsened by: Position, Palpation. No: Eating, Breathing Associated symptoms: Nausea, Diarrhea (loose stools). No: Fever, Melena Similar symptoms before: Diagnosis (diverticulitis) Review of Systems Constitutional: reports: Myalgias. denies: Fever, Chills Nose: denies: Rhinorrhea / runny nose, Congestion Throat: denies: Sore throat Cardiac: denies: Chest pain / pressure, Palpitations Respiratory: denies: Dyspnea, Cough GI: reports: Abdominal Pain, Nausea, Diarrhea. denies: Vomiting, Constipation, Bloody / black stool : denies: Dysuria, Frequency Skin: denies: Rash, Lesions Musculoskeletal: reports: Back pain. denies: Neck pain Neurologic: reports: Generalized weakness. 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 : None HEENT: None Psych: Depression, Anxiety, ADD/ADHD Musculoskeletal: Osteoarthritis, Chronic back pain Derm: None - Past Surgical History Past Surgical History: Yes General: Appendectomy Ortho: Spine surgery /COOKER SULFATE: Mastectomy - Present Medications Home Medications: Ambulatory Orders Medication Instructions Recorded Confirmed Venlafaxine HCl [Venlafaxine HCl 75 mg PO DAILY PM 06/17/17 09/02/17 ER] hydroCHLOROthiazide 25 mg PO DAILY 08/10/17 09/02/17 [Hydrochlorothiazide] Levothyroxine [Synthroid] 125 mcg PO QDAC 09/02/17 09/02/17 Ondansetron Odt [Zofran] 4 mg TL Q6H PRN #10 tablet 11/03/17 Cephalexin [Keflex] 1,000 mg PO BID #28 capsule 06/20/18 Metronidazole [Flagyl] 500 mg PO BID #14 tablet 02/25/18 Naproxen 375 mg PO BID #20 tablet 02/25/18 Ondansetron Odt [Zofran] 4 mg TL Q6H PRN #15 tablet 02/25/18 Oxycodone HCl/Acetaminophen 1 - 2 each PO Q6H PRN #20 tablet 02/25/18 [Percocet 5-325 mg Tablet] - Allergies Allergies/Adverse Reactions: Allergies Allergy/AdvReac Type Severity Reaction Status Date / Time adhesive tape Allergy Rash Verified 11/03/17 05:20 hydrocodone bitartrate * AdvReac Itching Verified 11/03/17 05:20 [From Vicodin] - Social History Does the pt smoke?: No Smoking Status: Never smoker Does the pt drink ETOH?: No Does the pt have substance abuse?: No - Family History Family history: reports: Non contributory - Immunizations Immunizations are current?: Yes - POLST Patient has POLST: No PD ED PE NORMAL - Vitals Vital signs reviewed: Yes - General General: Alert and oriented X 3, Well developed/nourished, Other (appears in considerable pain) - HEENT HEENT: Pharynx benign - Neck Neck: Supple, no meningeal sign, No adenopathy - Cardiac Cardiac: RRR, No murmur - Respiratory Respiratory: Clear bilaterally - Abdomen Abdomen: Normal bowel sounds, Soft, Non distended, No organomegaly, Other ( tender with guarding lower abd and LLQ. No percussion tender. ) - Female Female : Deferred - Rectal Rectal: Deferred - Back Back: No CVA TTP - Derm Derm: Normal color, Warm and dry - Neuro Neuro: Alert and oriented X 3, No motor deficit, Normal speech Results - Vitals Vitals: Oxygen O2 Source Room air - Labs Labs: Laboratory Tests 02/25/18 02/25/18 13:05 13:05 WBC 8.0 RBC 4.97 Hgb 15.3 Hct 45.8 MCV 92.1 MCH 30.8 MCHC 33.4 RDW 12.9 Plt Count 328 MPV 8.1 Neut # (Auto) 4.5 Lymph # (Auto) 2.8 [place] # (Auto) 0.5 Eos # (Auto) 0.2 Baso # (Auto) 0.0 Absolute Nucleated RBC 0.00 Nucleated RBC % 0.0 Sodium 138 Potassium 4.0 Chloride 105 Carbon Dioxide 25 Anion Gap 8.0 BUN 15 Creatinine 0.5 Estimated GFR (MDRD) 127 Glucose 85 Calcium 9.0 Total Bilirubin 0.8 AST 16 ALT 14 Alkaline Phosphatase 68 Total Protein 6.8 Albumin 3.4 Globulin 3.4 Albumin/Globulin Ratio 1.0 Lipase 17 L - Rads (name of study) abd CT Radiology: Prelim report reviewed (sigmoid diverticulitis with possible small fistula colocolic. ) PD MEDICAL DECISION MAKING - ED course Complexity details: d/w senior consumer insights consultant (Denny Newman - treat as regular diverticulitis and the possible fistula does not affect current treatment.) - Sepsis Event Vital Signs: Oxygen O2 Source Room air Departure - Departure Disposition: Home, Self Care Clinical Impression: Sigmoid diverticulitis Abdominal pain Qualifiers: Abdominal location: lower abdomen, unspecified Qualified Code(s): R10.30 - Lower abdominal pain, unspecified Condition: Stable Record reviewed to determine appropriate education?: Yes Instructions: ED Diverticulitis Follow-Up: Kathleen Asher MD [Primary Care Provider] - Eris Newman MD [Provider Admit Priv/Credential] - Prescriptions: Cephalexin [Keflex] 1,000 mg PO BID #28 capsule Metronidazole [Flagyl] 500 mg PO BID #14 tablet Naproxen 375 mg PO BID #20 tablet Ondansetron Odt [Zofran] 4 mg TL Q6H PRN #15 tablet PRN Reason: Nausea / Vomiting Oxycodone HCl/Acetaminophen [Percocet 5-325 mg Tablet] 1 - 2 each PO Q6H PRN # 20 tablet PRN Reason: Pain Comments: Drink lots of fluids. Regular diet is okay. Ondansetron if needed for nausea. Naproxen twice daily for the next 7-10 days for inflammation and pain. Add Percocet if needed for pain. Cephalexin and metronidazole antibiotics as directed twice daily for the next week for the infection. Call your primary care for a follow-up appointment. Try to follow-up in 2 days for recheck. Return sooner if worsening symptoms. Forms: Activity restrictions Discharge Date/Time: 02/25/18 17:30
[2018-02-25] MEDS ORDERED: SODIUM CHLORIDE 0.9% 1,000 ML IV ONE (12:55)
[2018-02-25] MEDS ORDERED: KETOROLAC 30 MG/ML VIAL IVP STA (12:56)
[2018-02-25] MEDS ORDERED: MORPHINE 10 MG/ML VIAL IVP STA ×2 (12:56→14:46)
[2018-02-25] MEDS ORDERED: ONDANSETRON 4 MG/2 ML VIAL IVP STA (12:56)
[2018-02-25] MEDS ORDERED: IOPAMIDOL-300 100 ML VIAL ONE (13:12)
[2018-02-25 13:28] LABS: BASOPHILS % (AUTO) 0.3 %; EOSINOPHILS # (AUTO) 0.2 10^3/uL (0.0-0.7); EOSINOPHILS % (AUTO) 2.5 %; HGB - HEMOGLOBIN 15.3 g/dL (12.0-16.0); LYMPHOCYTES # (AUTO) 2.8 10^3/uL (1.5-3.5); LYMPHOCYTES % (AUTO) 34.4 %; MEAN CORPUSCULAR HEMOGLOBIN 30.8 pg (27.0-31.0); MEAN CORPUSCULAR HGB CONC 33.4 g/dL (32.0-36.0); MEAN CORPUSCULAR VOLUME 92.1 fL (81.0-99.0); MEAN PLATELET VOLUME 8.1 fL (7.9-10.8); MONOCYTES # (AUTO) 0.5 10^3/uL (0.0-1.0); NEUTROPHILS # (AUTO) 4.5 10^3/uL (1.5-6.6); NEUTROPHILS % (AUTO) 56.8 %; PLT - PLATELET COUNT 328 10^3/uL (130-450); RED BLOOD COUNT 4.97 10^6/uL (4.20-5.40); RED CELL DISTRIBUTION WIDTH 12.9 % (12.0-15.0)
[2018-02-25 13:56] LABS: ALBUMIN 3.4 g/dL (3.2-5.5); BILIRUBIN,TOTAL 0.8 mg/dL (0.2-1.0); CREATININE 0.5 mg/dL (0.4-1.0); TOTAL PROTEIN 6.8 g/dL (6.7-8.2)
[2018-02-25] MEDS ORDERED: IOPAMIDOL-300 100 ML VIAL IVP ONE (14:17)
--- NOTE | 2018-02-25 14:37 | CT Report ---
Procedure Date: 02/25/2018 Accession Number: [id number] / [id number] Procedure: CT - Abdomen/Pelvis W/ CPT Code: FULL RESULT: EXAM: CT ABDOMEN AND PELVIS EXAM DATE: 02/25/2018 02:18 PM. CLINICAL HISTORY: Lower abd pain today; h/o diverticulitis. COMPARISONS: Multiple priors, most recently 10/11/17. TECHNIQUE: Routine helical CT imaging was performed through the abdomen and pelvis. IV contrast: ISOVUE 300 100mL. Enteric contrast: No. Reconstructions: Coronal and sagittal. In accordance with CT protocol optimization, one or more of the following dose reduction techniques were utilized for this exam: automated exposure control, adjustment of mA and/or KV based on patient size, or use of iterative reconstructive technique. FINDINGS: ABDOMEN: Lung Bases: Incompletely included lower lungs are grossly clear. Heart size is within normal limits. No basilar effusions. Liver: Unremarkable. Spleen: Unremarkable. Pancreas: Unremarkable. Gallbladder/Bile Ducts: Gallbladder is unremarkable. Biliary tree is normal caliber. Adrenal Glands: Unremarkable. Kidneys: No mass, calculi, or hydronephrosis. Peritoneum/Mesentery/Bowel: No free fluid, free air, or collection. No intestinal obstruction. Redemonstration of a sinus tract extending from the superior surface of the sigmoid colon (beginning series 5 image 43 and terminating series 5 image 36, also seen series 3 image 57). Mild surrounding inflammatory change. Lymph nodes: No mesenteric, periportal, or retroperitoneal lymphadenopathy. Vasculature: Abdominal aorta is nonaneurysmal. Portal vein is patent. Hepatic veins are patent. PELVIS: The bladder is unremarkable for the degree of distention. Uterus is present. No pelvic lymphadenopathy. Bones: No suspicious osseous lesions. Spinal fusion hardware and laminectomy. IMPRESSION: Ongoing inflammatory change of a short segment of sigmoid colon with a sinus tract extending into the mesentery. It is uncertain whether the proximal aspect of the sinus tract communicates with more proximal sigmoid colon (colocolic fistula). A barium enema could be attempted if this is of clinical relevance, however this may also be difficult to discern on enema given the short length of the sinus tract (differentiating barium propagating through the lumen versus the sinus tract). No abscess. No free air. RADIA
[2018-02-25] MEDS ORDERED: metroNIDAZOLE 500 MG/100 ML 500 MG/100 ML BAG IV ONE (14:46)
[2018-02-25] MEDS ORDERED: cefTRIAXone 1 GM VIAL IVP STA (14:46)
[2018-02-25] MEDS ORDERED: HYDROmorphone 2 MG/ML VIAL IVP STA (16:07)
[2018-02-25 16:49] VITALS: BP 131/89
== END 2018-02-25 17:30 | disposition home or self-care (01) ==
LOC: ED 10:38
DX: K57.32 Diverticulitis of large intestine without perforation or abscess without bleeding (principal); R10.30 Lower abdominal pain, unspecified; I10 Essential (primary) hypertension; E03.9 Hypothyroidism, unspecified; Z85.3 Personal history of malignant neoplasm of breast; Z90.10 Acquired absence of unspecified breast and nipple
CPT/HCPCS: 36415; 74177; 80053; 83690; 85025; 96361; 96365; 96375; 99283; 99284; J1170; Q9967

== ENCOUNTER 2018-03-01 16:25 | Inpatient (IN) | payer OTHER ==
[2018-03-01] MEDS ORDERED: ONDANSETRON 4 MG/2 ML VIAL IVP STA (16:47)
[2018-03-01] MEDS ORDERED: HYDROmorphone 2 MG/ML VIAL IVP STA ×3 (16:47→19:09)
--- NOTE | 2018-03-01 16:50 | ED Physician Documentation ---
PD HPI ABD PAIN - Stated complaint Stated Complaint: ABD PAIN - Chief complaint Chief Complaint: Abd Pain - History obtained from History obtained from: Patient, Friend - History of Present Illness Timing - onset: Other (58-year-old woman was seen here 4 days ago for diverticulitis flare, her CT at this time showed diverticulitis with potentially a colocolonic fistula. She was placed on Keflex and Flagyl and in the interim has gotten no better with severe left-sided abdominal pain. No vomiting or change in her bowel movements. She thinks she had a fever earlier today.) Review of Systems Ten Systems: 10 systems reviewed and negative Constitutional: reports: Fever, Chills Cardiac: denies: Chest pain / pressure, Palpitations Respiratory: denies: Dyspnea, Cough GI: reports: Abdominal Pain. 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 : None HEENT: None Psych: Depression, Anxiety, ADD/ADHD Musculoskeletal: Osteoarthritis, Chronic back pain Derm: None - Past Surgical History Past Surgical History: Yes General: Appendectomy Ortho: Spine surgery /COAL YARD SUPERVISOR: Mastectomy - Present Medications Home Medications: Ambulatory Orders Medication Instructions Recorded Confirmed Venlafaxine HCl [Venlafaxine HCl 75 mg PO DAILY PM 06/17/17 09/02/17 ER] hydroCHLOROthiazide 25 mg PO DAILY 08/10/17 09/02/17 [Hydrochlorothiazide] Levothyroxine [Synthroid] 125 mcg PO QDAC 09/02/17 09/02/17 Ondansetron Odt [Zofran] 4 mg TL Q6H PRN #10 tablet 11/03/17 Cephalexin [Keflex] 1,000 mg PO BID #28 capsule 02/25/18 Metronidazole [Flagyl] 500 mg PO BID #14 tablet 02/25/18 Naproxen 375 mg PO BID #20 tablet 02/25/18 Ondansetron Odt [Zofran] 4 mg TL Q6H PRN #15 tablet 02/25/18 Oxycodone HCl/Acetaminophen 1 - 2 each PO Q6H PRN #20 tablet 02/25/18 [Percocet 5-325 mg Tablet] - Allergies Allergies/Adverse Reactions: Allergies Allergy/AdvReac Type Severity Reaction Status Date / Time adhesive tape Allergy Rash Verified 03/01/18 16:30 hydrocodone bitartrate * AdvReac Itching Verified 03/01/18 16:30 [From Vicodin] - Social History Does the pt smoke?: No Smoking Status: Never smoker Does the pt drink ETOH?: No Does the pt have substance abuse?: No - Family History Family history: reports: Non contributory - Immunizations Immunizations are current?: Yes - POLST Patient has POLST: No PD ED PE NORMAL - Vitals Vital signs reviewed: Yes - General General: Alert and oriented X 3, No acute distress - Cardiac Cardiac: RRR, No murmur - Respiratory Respiratory: No respiratory distress, Clear bilaterally - Abdomen Abdomen: Other (Tender to both lower quadrants, left greater than right with normal bowel sounds, mild rebound tenderness.) - Back Back: No CVA TTP, No spinal TTP - Derm Derm: Normal color, Warm and dry - Extremities Extremities: No deformity, No tenderness to palpate - Neuro Neuro: Alert and oriented X 3, Normal speech - Psych Psych: Normal mood, Normal affect Results - Vitals Vitals: Vital Signs - 24 hr 03/01/18 03/01/18 16:29 19:31 Temperature 36.0 C L Heart Rate 75 77 Respiratory 18 16 Rate Blood Pressure 141/102 H 162/103 H O2 Saturation 99 99 Oxygen O2 Source Room air - Labs Labs: Laboratory Tests 03/01/18 03/01/18 17:40 17:40 WBC 8.5 RBC 4.63 Hgb 14.6 Hct 42.5 MCV 91.9 MCH 31.7 H MCHC 34.4 RDW 13.0 Plt Count 303 MPV 8.4 Neut # (Auto) 3.8 Lymph # (Auto) 3.9 H [place] # (Auto) 0.5 Eos # (Auto) 0.2 Baso # (Auto) 0.1 Absolute Nucleated RBC 0.01 Nucleated RBC % 0.1 Sodium 136 Potassium 3.6 Chloride 101 Carbon Dioxide 27 Anion Gap 8.0 BUN 15 Creatinine 0.7 Estimated GFR (MDRD) 86 L Glucose 81 Calcium 9.9 Total Bilirubin 0.2 AST 16 ALT 14 Alkaline Phosphatase 73 Total Protein 7.8 Albumin 4.2 Globulin 3.6 Albumin/Globulin Ratio 1.2 Lipase 16 L - Rads (name of study) CT A/P with rectal and IV contrast Radiology: EMP read contemporaneously (Persistent diverticulitis with fistulous tracts going into the mesentery and microperforation, no large volume pneumoperitoneum or abscess.) PD MEDICAL DECISION MAKING - ED course ED course: This is a 58-year-old woman with diverticulitis who is failed to improve with outpatient treatments on antibiotics. Note made of prior CT with concern for colocolonic fistula and CT was repeated today with rectal and IV contrast showing fistulous tracts extending into the mesentery consistent with microperforation. Surgery was consulted, Dr. Darryl Newman at 7:30 PM and he will see the patient and admit her on Zosyn and also asks me to call medicine for consultation given her blood pressure which has been fairly high in the department here. It was difficult to control her pain and she required multiple doses of IV narcotics. - Sepsis Event Vital Signs: Vital Signs - 24 hr 03/01/18 03/01/18 16:29 19:31 Temperature 36.0 C L Heart Rate 75 77 Respiratory 18 16 Rate Blood Pressure 141/102 H 162/103 H O2 Saturation 99 99 Oxygen O2 Source Room air Departure - Departure Disposition: [facility] DC/Xfer Clinical Impression: Sigmoid diverticulitis, Perforation of intestine due to diverticulitis of gastrointestinal tract Condition: Serious
[2018-03-01] MEDS ORDERED: IOPAMIDOL-300 100 ML VIAL ONE (17:25)
[2018-03-01] MEDS ORDERED: IOPAMIDOL-300 100 ML VIAL IVP ONE (17:36)
[2018-03-01] MEDS ORDERED: DIATR MEGLU/DIATRIZOATE SODIUM 120 ML BOTTLE PO ONE (17:36)
[2018-03-01 17:47] LABS: BASOPHILS # (AUTO) 0.1 10^3/uL (0.0-0.1); BASOPHILS % (AUTO) 0.9 %; EOSINOPHILS # (AUTO) 0.2 10^3/uL (0.0-0.7); EOSINOPHILS % (AUTO) 2.5 %; HGB - HEMOGLOBIN 14.6 g/dL (12.0-16.0); LYMPHOCYTES # (AUTO) 3.9 10^3/uL (1.5-3.5); LYMPHOCYTES % (AUTO) 45.9 %; MEAN CORPUSCULAR HEMOGLOBIN 31.7 pg (27.0-31.0); MEAN CORPUSCULAR HGB CONC 34.4 g/dL (32.0-36.0); MEAN CORPUSCULAR VOLUME 91.9 fL (81.0-99.0); MEAN PLATELET VOLUME 8.4 fL (7.9-10.8); MONOCYTES # (AUTO) 0.5 10^3/uL (0.0-1.0); MONOCYTES % (AUTO) 6.4 %; NEUTROPHILS # (AUTO) 3.8 10^3/uL (1.5-6.6); NEUTROPHILS % (AUTO) 44.3 %; PLT - PLATELET COUNT 303 10^3/uL (130-450); RED BLOOD COUNT 4.63 10^6/uL (4.20-5.40); WHITE BLOOD COUNT 8.5 x10^3/uL (4.8-10.8)
[2018-03-01 18:00] LABS: ALBUMIN 4.2 g/dL (3.2-5.5); ALBUMIN/GLOBULIN RATIO 1.2 (1.0-2.2); BILIRUBIN,TOTAL 0.2 mg/dL (0.2-1.0); CALCIUM 9.9 mg/dL (8.5-10.3); CREATININE 0.7 mg/dL (0.4-1.0); TOTAL PROTEIN 7.8 g/dL (6.7-8.2)
--- NOTE | 2018-03-01 19:24 | CT Report ---
Procedure Date: 03/01/2018 Accession Number: [id number] / [id number] Procedure: CT - Abdomen/Pelvis W/ CPT Code: FULL RESULT: EXAM: CT ABDOMEN AND PELVIS EXAM DATE: 03/01/2018 06:20 PM. CLINICAL HISTORY: IV and rectal contrast, diverticulitis, colocolic fistula. COMPARISONS: 02/25/2018. TECHNIQUE: Routine helical CT imaging was performed through the abdomen and pelvis. IV contrast: 100 cc of Isovue-300. Enteric contrast: Yes. Reconstructions: Coronal and sagittal. Rectal contrast administered. In accordance with CT protocol optimization, one or more of the following dose reduction techniques were utilized for this exam: automated exposure control, adjustment of mA and/or KV based on patient size, or use of iterative reconstructive technique. FINDINGS: Lung Bases: Mild cardiac enlargement. Small lateral hernia. Lung bases are clear. Liver: Normal. No masses. Gallbladder/Bile Ducts: Unremarkable. Spleen: Normal. Pancreas: Normal. Adrenal Glands: Normal. Kidneys: Normal. No masses or hydronephrosis. Peritoneal Cavity/Bowel:As before, there is a moderate length of sigmoid wall thickening in the setting of diverticulosis with associated surrounding inflammation. As before, there are at least 2 separate tracts extending from the mid and proximal sigmoid into the mesentery. Small amounts of contrast are noted within the tracks. There is a small locule of gas probably within the mesentery on image 52. No abscess is identified. No dilated large bowel concerning for obstruction. Normal stomach and small bowel. No adenopathy. Pelvic Organs: Uterine calcified fibroids are noted. Otherwise, normal bladder, uterus and adnexa. No pelvic mass or adenopathy. No pelvic collection concerning for an abscess. Inflammatory changes are noted throughout the pelvis from the sigmoid diverticulitis. Vasculature: No aneurysms or other significant abnormality. Bones: No osteoblastic or osteolytic lesions are noted. Extensive interbody and posterior fusion throughout the lower thoracic and lumbar spine. No hardware complications. Other: None. IMPRESSION: 1. Persistent sigmoid diverticulitis. 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 Single locule of gas within the mesentery noted. No large volume pneumoperitoneum. 2. No abscess or obstruction. RADIA
[2018-03-01] MEDS ORDERED: PIPERACILLIN/TAZOBACTAM 3.375 GM in SODIUM CHLORIDE 0.9% MINIBAG 100 ML IV STA (19:30)
[2018-03-01] MEDS ORDERED: HYDROmorphone 2 MG/ML VIAL IVP PRN (19:51)
[2018-03-01] MEDS: SODIUM CHLORIDE FLUSH 0.9% 10 ML SYRINGE IVP PRN (20:55)
[2018-03-01] MEDS: HYDROmorphone 2 MG/ML VIAL IVP PRN (20:55)
[2018-03-01] MEDS ORDERED: SODIUM CHLORIDE 0.9% 50 ML IV ONE (20:57)
[2018-03-01] MEDS: SODIUM CHLORIDE 0.9% 1,000 ML IV SCH (21:05)
[2018-03-01] MEDS: LISINOPRIL 20 MG TABLET PO SCH (21:13)
--- NOTE | 2018-03-01 21:13 | CONSULTATION NOTE ---
Referring Provider Name of Referring Provider:: Gilmar Newman MD Consult Date: 03/01/18 Chief Complaint - Chief Complaint Chief Complaint: Abdominal pain History of Present Illness - Admitted From Admitted From:: Home - History Obtained From History obtained from: patient, ED physician - History of Present Illness HPI Comment/Other: Ms. Anny Muro is a very pleasant 58-year-old female with a history of multiple back surgeries, hypertension,hypothyroidism and depression who has been experiencing worsening abdominal pain. She came to the emergency room several days ago and was sent home on antibiotics and pain medicine however has not had an improvement in fact has had a worsening of her abdominal pain. She denies any nausea or vomiting or fevers. CT scan shows a diverticulitis and the patient has been admitted to the service of Dr. Gilmar Newman, general surgeon. The hospitalist team has been consulted for the patient's hypertension and comorbidities as well as pain management. History - Past Medical History Cardiovascular: reports: Hypertension Respiratory: reports: Asthma, Shortness of breath Endocrine/Autoimmune: reports: HyPOthyroidism GI: reports: Diverticulitis [employer]: reports: Breast cancer : reports: None HEENT: reports: None Psych: reports: Depression, Anxiety, ADD/ADHD Musculoskeletal: reports: Osteoarthritis, Chronic back pain Derm: reports: None MRSA Hx?: No - Past Surgical History General: reports: Appendectomy Ortho: reports: Spine surgery /[employer]: reports: Mastectomy - Family & Social History Family History: Mother: Alive and Well (Mother has macular degeneration), Father : , Cancer Family History Comment/Other: The patient says her siblings are all alive and well. There is a history of hypertension, there is no known history of myocardial infarction, coronary artery disease, diabetes mellitus, or strokes. Living arrangement: At home Living Situation: With friend(s) Social History Notes: Patient says she lives with a roommate - Substance History Use: Uses substance without health or social issues: NONE Abuse: Recurrent use of substance despite neg consequences: NONE Dependence: Experiences withdrawal or developed tolerances: NONE - POLST Patient has POLST: No POLST Status: Full Code Meds/Allgy - Home Medications Home Medications: Ambulatory Orders Medication Instructions Recorded Confirmed Venlafaxine HCl [Venlafaxine HCl 75 mg PO DAILY PM 06/17/17 09/02/17 ER] hydroCHLOROthiazide 25 mg PO DAILY 08/10/17 09/02/17 [Hydrochlorothiazide] Levothyroxine [Synthroid] 125 mcg PO QDAC 09/02/17 09/02/17 Ondansetron Odt [Zofran] 4 mg TL Q6H PRN #10 tablet 11/03/17 Cephalexin [Keflex] 1,000 mg PO BID #28 capsule 02/25/18 Metronidazole [Flagyl] 500 mg PO BID #14 tablet 02/25/18 Naproxen 375 mg PO BID #20 tablet 02/25/18 Ondansetron Odt [Zofran] 4 mg TL Q6H PRN #15 tablet 02/25/18 Oxycodone HCl/Acetaminophen 1 - 2 each PO Q6H PRN #20 tablet 02/25/18 [Percocet 5-325 mg Tablet] - Allergies Allergies/Adverse Reactions: Allergies Allergy/AdvReac Type Severity Reaction Status Date / Time adhesive tape Allergy Rash Verified 03/01/18 16:30 hydrocodone bitartrate * AdvReac Itching Verified 03/01/18 16:30 [From Vicodin] Review of Systems - Constitutional Constitutional: reports: Fatigue, Poor appetite. denies: Fever, Chills, Weakness, Night sweats - Eyes Eyes: denies: Pain, Irritation, Amaurosis, Blurred vision - Ears, Nose & Throat Ears, Nose & Throat: denies: Ear pain, Hearing loss, Hearing aids, Tinnitus, Vertigo, Nasal pain, Nasal discharge - Cardiovascular Cariovascular: denies: Irregular heart rate, Palpitations, Chest pain, Edema - Respiratory Respiratory: denies: Cough, Sputum production, Wheezing, Snoring - Gastrointestinal Gastrointestinal: reports: Abdominal pain, Abdominal distention, Nausea, Vomiting. denies: Constipation, Diarrhea, Rectal bleeding, Black stools, Bloody stools, Coffee grounds emesis - Genitourinary Genitourinary: denies: Dysuria, Frequency, Urgency, Hematuria - Musculoskeletal Musculoskeletal: denies: Muscle pain, Back pain, Muscle aches, Stiffness - Integumentary Integumentary: denies: Rash, Pruritis, Lesions, Dryness - Neurological Neurological: denies: General weakness, Focal weakness, Headache, Dizziness - Psychiatric Psychiatric: reports: Depression, Anxiety. denies: Suicidal, Delusions, Hallucinations, Homicidal - Endocrine Endocrine: denies: Polyuria, Polydypsia, Polyphagia - Hematologic/Lymphatic Hematologic/Lymphatic: denies: Anemia, Bruising, Petechiae, Lymphadenopathy - All Other Systems All Other Systems: reports: Reviewed and negative Exam - Vital Signs Reviewed Vital Signs: Yes - Physical Exam General Appearance: positive: Alert, Moderate distress, Other (Distress secondary to abdominal pain) Eyes Bilateral: positive: Normal inspection, PERRL, EOMI, No lid inflammation, Conjunctivae nml, No scleral icterus ENT: positive: ENT inspection nml, Pharynx nml, No signs of dehydration Neck: positive: Nml inspection, Thyroid nml, No JVD, Trachea midline. negative : Thyromegaly Respiratory: positive: Chest non-tender, No respiratory distress, Breath sounds nml. negative: Wheezes, Rales, Rhonchi Cardiovascular: positive: Regular rate & rhythm, No murmur, No gallop Peripheral Pulses: positive: 1+ Abdomen: positive: No organomegaly, Nml bowel sounds, No distention, Tenderness , Guarding. negative: Rebound, Mass Back: positive: Nml inspection. negative: CVA tenderness (R), CVA tenderness (L ) Skin: positive: Color nml, No rash, Warm, Dry. negative: Cyanosis Extremities: positive: Non-tender, Full ROM, Nml appearance, No pedal edema Neurologic/Psychiatric: positive: Oriented x3, CN's nml (2-12), Motor nml, Sensation nml, Mood/affect nml Conclusion/Plan - Diagnosis Diagnosis: 1. Hypertension. The patient has been hypertensive since her admission. We currently have her on hydrochlorothiazide, will add Norvasc 5 mg daily and monitor closely. 2. Persistent sigmoid diverticulitis. The patient has fistula tracts extending into the mesentery. Dr. Newman is managing the patient's antibiotics and has consulted the hospitalist team for medical management of her comorbidities. We will continue to monitor. 3. History of chronic back pain with surgical history of a prior back surgeries including [place] delmy placement and multiple fusions. Because the patient is on chronic opiates, she most likely has upper regulated her mu receptors and will require more pain medicine than the typical patient would. I have ordered her her [id number] morphine in addition to her as needed Dilaudid. 4. Hypothyroidism. We will continue the patient on her home dosing of Synthroid. 5. Depression. I will continue the patient on her home dosing of venlafaxine. - Plan Plan: The patient has been admitted to Dr. Gilmar Newman's service, and we have been consulted for medical management. I will address the problems as noted above and follow the patient closely during this admission. - Lab Results Lab results reviewed: Yes Fish Bones: 03/01/18 17:40 03/01/18 17:40 - Diagnostic Imaging Results Diagnostic Imaging Results: positive: Final report reviewed Diagnostic Imaging Results Comments: EXAM: CT ABDOMEN AND PELVIS EXAM DATE: 03/01/2018 06:20 PM. CLINICAL HISTORY: IV and rectal contrast, diverticulitis, colocolic fistula. COMPARISONS: 02/25/2018. TECHNIQUE: Routine helical CT imaging was performed through the abdomen and pelvis. IV contrast: 100 cc of Isovue-300. Enteric contrast: Yes. Reconstructions: Coronal and sagittal. Rectal contrast administered. In accordance with CT protocol optimization, one or more of the following dose reduction techniques were utilized for this exam: automated exposure control, adjustment of mA and/or KV based on patient size, or use of iterative reconstructive technique. FINDINGS: Lung Bases: Mild cardiac enlargement. Small lateral hernia. Lung bases are clear. Liver: Normal. No masses. Gallbladder/Bile Ducts: Unremarkable. Spleen: Normal. Pancreas: Normal. Adrenal Glands: Normal. Kidneys: Normal. No masses or hydronephrosis. Peritoneal Cavity/Bowel:As before, there is a moderate length of sigmoid wall thickening in the setting of diverticulosis with associated surrounding inflammation. As before, there are at least 2 separate tracts extending from the mid and proximal sigmoid into the mesentery. Small amounts of contrast are noted within the tracks. There is a small locule of gas probably within the mesentery on image 52. No abscess is identified. No dilated large bowel concerning for obstruction. Normal stomach and small bowel. No adenopathy. Pelvic Organs: Uterine calcified fibroids are noted. Otherwise, normal bladder, uterus and adnexa. No pelvic mass or adenopathy. No pelvic collection concerning for an abscess. Inflammatory changes are noted throughout the pelvis from the sigmoid diverticulitis. Vasculature: No aneurysms or other significant abnormality. Bones: No osteoblastic or osteolytic lesions are noted. Extensive interbody and posterior fusion throughout the lower thoracic and lumbar spine. No hardware complications. Other: None. IMPRESSION: 1. Persistent sigmoid diverticulitis. 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 Single locule of gas within the mesentery noted. No large volume pneumoperitoneum. 2. No abscess or obstruction. EXAM: CT ABDOMEN AND PELVIS EXAM DATE: 02/25/2018 02:18 PM. CLINICAL HISTORY: Lower abd pain today; h/o diverticulitis. COMPARISONS: Multiple priors, most recently 10/11/17. TECHNIQUE: Routine helical CT imaging was performed through the abdomen and pelvis. IV contrast: ISOVUE 300 100mL. Enteric contrast: No. Reconstructions: Coronal and sagittal. In accordance with CT protocol optimization, one or more of the following dose reduction techniques were utilized for this exam: automated exposure control, adjustment of mA and/or KV based on patient size, or use of iterative reconstructive technique. FINDINGS: ABDOMEN: Lung Bases: Incompletely included lower lungs are grossly clear. Heart size is within normal limits. No basilar effusions. Liver: Unremarkable. Spleen: Unremarkable. Pancreas: Unremarkable. Gallbladder/Bile Ducts: Gallbladder is unremarkable. Biliary tree is normal caliber. Adrenal Glands: Unremarkable. Kidneys: No mass, calculi, or hydronephrosis. Peritoneum/Mesentery/Bowel: No free fluid, free air, or collection. No intestinal obstruction. Redemonstration of a sinus tract extending from the superior surface of the sigmoid colon (beginning series 5 image 43 and terminating series 5 image 36, also seen series 3 image 57). Mild surrounding inflammatory change. Lymph nodes: No mesenteric, periportal, or retroperitoneal lymphadenopathy. Vasculature: Abdominal aorta is nonaneurysmal. Portal vein is patent. Hepatic veins are patent. PELVIS: The bladder is unremarkable for the degree of distention. Uterus is present. No pelvic lymphadenopathy. Bones: No suspicious osseous lesions. Spinal fusion hardware and laminectomy. IMPRESSION: Ongoing inflammatory change of a short segment of sigmoid colon with a sinus tract extending into the mesentery. It is uncertain whether the proximal aspect of the sinus tract communicates with more proximal sigmoid colon (colocolic fistula). A barium enema could be attempted if this is of clinical relevance, however this may also be difficult to discern on enema given the short length of the sinus tract (differentiating barium propagating through the lumen versus the sinus tract). No abscess. No free air.
[2018-03-01] MEDS: ENOXAPARIN 40 MG/0.4 ML SYRINGE SUBQ SCH (21:14)
[2018-03-01] MEDS: FAMOTIDINE 20 MG in SODIUM CHLORIDE 0.9% 50 ML IV SCH ×2 (21:16→21:56)
[2018-03-01] MEDS: MORPHINE 10 MG/ML VIAL IVP SCH (21:54)
[2018-03-02] MEDS: MORPHINE 10 MG/ML VIAL IVP SCH ×6 (00:21→21:03)
[2018-03-02] MEDS: ONDANSETRON ODT 4 MG TABLET TL PRN ×2 (01:05→05:59)
[2018-03-02] MEDS: SODIUM CHLORIDE FLUSH 0.9% 10 ML SYRINGE IVP SCH ×3 (01:15→17:18)
[2018-03-02] MEDS: PIPERACILLIN/TAZOBACTAM 3.375 GM in SODIUM CHLORIDE 0.9% MINIBAG 100 ML IV SCH ×4 (01:16→19:35)
[2018-03-02] MEDS: HYDROmorphone 2 MG/ML VIAL IVP PRN ×8 (03:05→21:33)
[2018-03-02] MEDS: SODIUM CHLORIDE 0.9% 1,000 ML IV SCH ×3 (04:57→19:36)
[2018-03-02 05:44] LABS: BASOPHILS # (AUTO) 0.1 10^3/uL (0.0-0.1); EOSINOPHILS # (AUTO) 0.3 10^3/uL (0.0-0.7); EOSINOPHILS % (AUTO) 2.9 %; HGB - HEMOGLOBIN 13.8 g/dL (12.0-16.0); LYMPHOCYTES # (AUTO) 3.9 10^3/uL (1.5-3.5); LYMPHOCYTES % (AUTO) 41.1 %; MEAN CORPUSCULAR HEMOGLOBIN 30.8 pg (27.0-31.0); MEAN CORPUSCULAR HGB CONC 33.1 g/dL (32.0-36.0); MEAN CORPUSCULAR VOLUME 93.1 fL (81.0-99.0); MONOCYTES # (AUTO) 0.5 10^3/uL (0.0-1.0); MONOCYTES % (AUTO) 5.8 %; NEUTROPHILS # (AUTO) 4.6 10^3/uL (1.5-6.6); NEUTROPHILS % (AUTO) 49.2 %; PLT - PLATELET COUNT 269 10^3/uL (130-450); RED BLOOD COUNT 4.49 10^6/uL (4.20-5.40); RED CELL DISTRIBUTION WIDTH 12.9 % (12.0-15.0); WHITE BLOOD COUNT 9.4 x10^3/uL (4.8-10.8)
[2018-03-02 05:54] LABS: CALCIUM 8.8 mg/dL (8.5-10.3); CREATININE 0.7 mg/dL (0.4-1.0)
--- NOTE | 2018-03-02 07:59 | HISTORY & PHYSICAL EXAMINATION ---
DATE OF SERVICE: 03/01/2018 Physician: Bernard Newman MD REASON FOR ADMISSION: Abdominal pain. HISTORY OF PRESENT ILLNESS: The patient is a 58-year-old female who presents with a four- to five-day history of left lower quadrant abdominal pain. She went to the Emergency Room near the onset of the pain, and a CT scan of the abdomen and pelvis showed diverticulitis. She was started on Keflex and Flagyl. She continued to have pain in the left lower quadrant and therefore today came to the Emergency Room to be evaluated. She had a CBC showing a white blood cell count that was normal. CT scan shows persistent sigmoid diverticulitis with tracts extending into the mesentery and proximal sigmoid colon of infection. There is a single loculation of gas in the mesentery. There was no abscess being seen. PAST SURGICAL HISTORY 1. Eight back surgeries. 2. Appendectomy. 3. Mastectomy. PAST MEDICAL HISTORY 1. Breast cancer. 2. Anxiety. 3. Depression. 4. ADHD. 5. Chronic back pain. 6. Osteoarthritis. 7. Asthma. 8. Hypothyroidism. 9. Hypertension. MEDICATIONS 1. Venlafaxine. 2. Hydrochlorothiazide. 3. Synthroid. 4. Keflex. 5. Flagyl. 6. Naprosyn. 7. Zofran. 8. Percocet. ALLERGIES 1. TAPE. 2. HYDROCODONE. HABITS: The patient denies any smoking, alcohol or drug use. SOCIAL HISTORY: The patient is single and has a significant other. FAMILY HISTORY: Noncontributory. REVIEW OF SYSTEMS CONSTITUTIONAL: Not feeling well. GASTROINTESTINAL: Abdominal pain, nausea. She denies any diarrhea or constipation. MUSCULOSKELETAL: Back pain. PSYCHOLOGICAL: Anxiety and depression. RESPIRATORY: Shortness of breath from her asthma periodically. PHYSICAL EXAMINATION VITAL SIGNS: Temperature is 36, heart rate 75, blood pressure is 141/102. GENERAL: The patient is lying in bed. She is able to move around without too much discomfort. She does not appear to be in any significant distress at the current time. EYES: Nonicteric. NECK: No lymphadenopathy. HEART: Regular. LUNGS: Clear. BACK: Nontender. ABDOMEN: Soft, tender in the left lower quadrant without peritoneal signs. No tenderness anywhere else in the abdomen. No hernias. EXTREMITIES: No edema or cyanosis. NEUROLOGICAL: The patient appears to be neurologically intact without any deficit. PSYCHOLOGICAL: The patient is coherent, cooperative, and appears to answer questions fully. DIAGNOSTIC DATA: White blood cell count at 8.5. CT scan of the abdomen and pelvis: See history of present illness. ASSESSMENT 1. Left lower quadrant abdominal pain. The patient has complicated diverticular disease without abscess. I recommend the patient be admitted to the hospital and started on IV antibiotics along with being n.p.o. We will see how she does with serial abdominal exams. 2. Hypertension, on antihypertensives. Hospitalist will be consulted in order to help manage her hypertension and other medical issues. 3. Attention deficit hyperactivity disorder, anxiety and depression, on medications. 4. Hypothyroidism, on Synthroid. 5. Chronic back pain, on Percocet. PLAN 1. The patient will be admitted to the hospital. 2. NPO. 3. IV fluids. 4. IV antibiotics. 5. Hospitalist consult in order to help manage her medical issues. I certify that the patient at this point is not anticipated to stay in the hospital more than 96 hours or be transferred. TD: 03/01/2018 19:53 GENEVIEVE
[2018-03-02] MEDS: FAMOTIDINE 20 MG in SODIUM CHLORIDE 0.9% 50 ML IV SCH (09:01)
[2018-03-02] MEDS: ENOXAPARIN 40 MG/0.4 ML SYRINGE SUBQ SCH (09:01)
[2018-03-02] MEDS: LISINOPRIL 20 MG TABLET PO SCH (09:01)
[2018-03-02] MEDS ORDERED: SODIUM CHLORIDE 0.9% 50 ML IV ONE (09:03)
[2018-03-02] MEDS ORDERED: FAMOTIDINE 20 MG/2 ML VIAL ONE (09:06)
[2018-03-02] MEDS: SODIUM CHLORIDE FLUSH 0.9% 10 ML SYRINGE IVP PRN (17:18)
[2018-03-02] MEDS: FAMOTIDINE 20 MG/50 ML 50 ML IV SCH (21:03)
--- NOTE | 2018-03-03 00:01 | PROVIDER PROGRESS NOTE ---
Subjective - Prog Note Date Prog Note Date: 03/02/18 Prog Note Time: 12:00 - Subjective Pt reports feeling: No change Subjective: Anny was drowsy during her exam, but could easily arouse to verbal stimulation. She denies chest pain, shortness of breath, emesis, or a new cough. She was encouraged to use her incentive spirometer to prevent pneumonia as she has more pain medication on board. Current Medications - Current Medications Current Medications: Active Medications Enoxaparin Sodium (Lovenox) 40 mg SUBQ DAILY [facility] Last Admin: 03/02/18 09:01 Dose: 40 mg Hydromorphone HCl (Dilaudid (Vial)) 1 mg IVP Q2H PRN PRN Reason: Abdominal Pain Hydromorphone HCl (Dilaudid (Vial)) 2 mg IVP Q2H PRN PRN Reason: Abdominal Pain Last Admin: 03/02/18 21:33 Dose: 2 mg Sodium Chloride (Normal Saline 0.9%) 1,000 mls @ 150 mls/hr IV .Q6H40M [facility] Last Admin: 03/02/18 19:36 Dose: 150 mls/hr Piperacillin Sod/Tazobactam (Sod 3.375 gm/ Sodium Chloride) 100 mls @ 200 mls/ hr IV Q6H [facility] Last Infusion: 03/02/18 20:09 Dose: Infused Famotidine (Pepcid 20 Mg/50 Ml) 50 mls @ 100 mls/hr IV BID [facility] Last Infusion: 03/02/18 21:33 Dose: Infused Lisinopril (Zestril) 20 mg PO DAILY [facility] Last Admin: 03/02/18 09:01 Dose: 20 mg Morphine Sulfate (Morphine) 10 mg IVP Q4H [facility] Last Admin: 03/02/18 21:03 Dose: 10 mg Ondansetron HCl (Zofran Odt) 4 mg TL Q4HR PRN PRN Reason: Nausea / Vomiting Last Admin: 03/02/18 05:59 Dose: 4 mg Sodium Chloride (Normal Saline Flush 0.9%) 10 ml IVP 0100,0900,1700 [facility] Last Admin: 03/02/18 17:18 Dose: 10 ml Sodium Chloride (Normal Saline Flush 0.9%) 10 ml IVP PRN PRN PRN Reason: NEEDED PER PROVIDER ORDERS Last Admin: 03/02/18 17:18 Dose: 10 ml Venlafaxine HCl [Venlafaxine HCl ER] 75 mg PO QPM 06/17/17 hydroCHLOROthiazide [Hydrochlorothiazide] 25 mg PO DAILY 08/10/17 Albuterol Sulfate [Proair Respiclick] 2 puffs INH Q4H PRN 03/02/18 Baclofen [Lioresal] 20 mg PO TID PRN 03/02/18 Cyclobenzaprine [Flexeril] 10 mg PO QPM PRN 03/02/18 Morphine Sulfate [Morphine Sulfate ER] 30 mg PO QPM 03/02/18 Ondansetron HCl [Zofran] 4 - 8 mg PO DAILY PRN 03/02/18 Oxycodone HCl [Roxicodone] 15 mg PO Q4H PRN MDD 5 tabs 03/02/18 Thyroid,Pork [[place] Thyroid] 120 mg PO QDAC 03/02/18 Venlafaxine HCl [Venlafaxine HCl ER] 150 mg PO DAILY 03/02/18 traZODone [Desyrel] 200 mg PO HS PRN 03/02/18 Objective - Vital Signs/Intake & Output Reviewed Vital Signs: Yes Vital Signs: Vital Signs x48h Temp Pulse Resp BP Pulse Ox 03/02/18 21:00 36.6 C 69 18 149/71 H 98 03/02/18 16:00 36.4 C L 64 18 122/80 99 Intake & Output: Intake & Output 02/27/18 02/28/18 03/01/18 03/02/18 23:59 23:59 23:59 23:59 Intake Total 152 3477.0 Balance 152 3477.0 - Objective General Appearance: positive: No acute distress, Lethargic Eyes Bilateral: positive: Normal inspection ENT: positive: ENT inspection nml, No signs of dehydration Neck: positive: Nml inspection, No JVD Respiratory: positive: Chest non-tender, No respiratory distress, Breath sounds nml Cardiovascular: positive: Regular rate & rhythm, No gallop Peripheral Pulses: 1+ Radial (R), 1+ Radial (L) Abdomen: positive: Tenderness, Guarding, Abnml bowel sounds Back: positive: Nml inspection Skin: positive: Color nml, No rash, Warm, Dry Extremities: positive: Non-tender, Full ROM, Nml appearance, No pedal edema Neurologic/Psychiatric: positive: Oriented x3, CN's nml (2-12), Weakness, Sensory loss, Depressed mood/affect Reflexes: Bicep (R): 1+, Bicep (L): 1+ - Lab Results Fish Bones: 03/03/18 08:05 03/03/18 08:05 Other Labs: Lab Results x24hrs 03/02/18 03/02/18 Range/Units 05:16 05:16 WBC 9.4 (4.8-10.8) x10^3/uL RBC 4.49 (4.20-5.40) 10^6/uL Hgb 13.8 (12.0-16.0) g/dL Hct 41.8 (37.0-47.0) % MCV 93.1 (81.0-99.0) fL MCH 30.8 (27.0-31.0) pg MCHC 33.1 (32.0-36.0) g/dL RDW 12.9 (12.0-15.0) % Plt Count 269 (130-450) 10^3/uL MPV 8.0 (7.9-10.8) fL Neut # (Auto) 4.6 (1.5-6.6) 10^3/uL Lymph # (Auto) 3.9 H (1.5-3.5) 10^3/uL [place] # (Auto) 0.5 (0.0-1.0) 10^3/uL Eos # (Auto) 0.3 (0.0-0.7) 10^3/uL Baso # (Auto) 0.1 (0.0-0.1) 10^3/uL Absolute Nucleated RBC 0.00 x10^3/uL Nucleated RBC % 0.0 /100WBC Sodium 139 (135-145) mmol/L Potassium 3.5 (3.5-5.0) mmol/L Chloride 109 (101-111) mmol/L Carbon Dioxide 23 (21-32) mmol/L Anion Gap 7.0 (6-13) BUN 14 (6-20) mg/dL Creatinine 0.7 (0.4-1.0) mg/dL Estimated GFR (MDRD) 86 L (>89) Glucose 83 (70-100) mg/dL Calcium 8.8 (8.5-10.3) mg/dL ABX Reporting Has patient been on IV antibiotics over the past 48 hours?: Yes Assessment/Plan - Problem List (1) Hypertension Impression: Blood pressure today is well controlled at 128/75. The patient is prescribed HCTZ at home. Lisinopril and HCTZ continue today. Plan: Continue meds and monitor VS. Qualifiers: Hypertension type: essential hypertension Qualified Code(s): I10 - Essential (primary) hypertension (2) Sigmoid diverticulitis Impression: The patient states that she has never had pain this bad before and "it is as bad as giving ". She admits to pain relief only when "the nurses remember to give it to me". She has had up to 7 back surgeries, and takes chronic narcotics. A [facility] query was obtained to review her usage and abuse potential. She fills these on the exact day possible every 28 days without fail. Plan: Avoid SOCIAL WORK ADMINISTRATOR, continue IV dilaudid and IV morphine. (3) Chronic back pain Impression: The patient has had at least 7 prior back surgeries per chart review. A [facility] query was obtained to review her usage and abuse potential. She fills these on the exact day possible every 28 days without fail. Plan: Avoid SOCIAL WORK ADMINISTRATOR, continue IV dilaudid and IV morphine. Qualifiers: Back pain location: low back pain Back pain laterality: bilateral Sciatica presence: with sciatica Sciatica laterality: sciatica of left side Qualified Code(s): M54.42 - Lumbago with sciatica, left side; G89.29 - Other chronic pain (4) Hypothyroidism Impression: The patient takes Tyroid Armor at home at 120 mg. Plan: Continue and consider changing to IV form if emesis is noted. Qualifiers: Hypothyroidism type: acquired Qualified Code(s): E03.9 - Hypothyroidism, unspecified (5) Depression Impression: the patient is prescribed Effexor, and a muscle relaxer at home, and these continue here. Plan: Monitor mood and overall wellness. Qualifiers: Depression Type: other depression Qualified Code(s): F32.89 - Other specified depressive episodes
[2018-03-03] MEDS: SODIUM CHLORIDE FLUSH 0.9% 10 ML SYRINGE IVP SCH ×4 (00:12→15:56)
[2018-03-03] MEDS: HYDROmorphone 2 MG/ML VIAL IVP PRN ×10 (00:12→20:01)
[2018-03-03] MEDS: ONDANSETRON ODT 4 MG TABLET TL PRN ×2 (00:22→05:37)
[2018-03-03] MEDS: MORPHINE 10 MG/ML VIAL IVP SCH ×6 (01:32→20:01)
[2018-03-03] MEDS: PIPERACILLIN/TAZOBACTAM 3.375 GM in SODIUM CHLORIDE 0.9% MINIBAG 100 ML IV SCH ×4 (01:33→19:17)
[2018-03-03] MEDS: SODIUM CHLORIDE 0.9% 1,000 ML IV SCH ×2 (03:57→18:21)
[2018-03-03] MEDS: SODIUM CHLORIDE FLUSH 0.9% 10 ML SYRINGE IVP PRN ×3 (04:31→06:50)
[2018-03-03 08:18] LABS: BASOPHILS # (AUTO) 0.1 10^3/uL (0.0-0.1); BASOPHILS % (AUTO) 1.2 %; EOSINOPHILS # (AUTO) 0.3 10^3/uL (0.0-0.7); EOSINOPHILS % (AUTO) 3.8 %; HGB - HEMOGLOBIN 12.9 g/dL (12.0-16.0); LYMPHOCYTES # (AUTO) 3.5 10^3/uL (1.5-3.5); LYMPHOCYTES % (AUTO) 42.9 %; MEAN CORPUSCULAR HEMOGLOBIN 31.4 pg (27.0-31.0); MEAN CORPUSCULAR HGB CONC 33.5 g/dL (32.0-36.0); MEAN CORPUSCULAR VOLUME 93.6 fL (81.0-99.0); MONOCYTES # (AUTO) 0.6 10^3/uL (0.0-1.0); MONOCYTES % (AUTO) 7.4 %; NEUTROPHILS # (AUTO) 3.6 10^3/uL (1.5-6.6); NEUTROPHILS % (AUTO) 44.7 %; PLT - PLATELET COUNT 233 10^3/uL (130-450); RED BLOOD COUNT 4.12 10^6/uL (4.20-5.40); WHITE BLOOD COUNT 8.2 x10^3/uL (4.8-10.8)
[2018-03-03 08:27] LABS: ALBUMIN 3.2 g/dL (3.2-5.5); BILIRUBIN,TOTAL 0.7 mg/dL (0.2-1.0); CALCIUM 8.5 mg/dL (8.5-10.3); CREATININE 0.8 mg/dL (0.4-1.0); MAGNESIUM 1.9 mg/dL (1.7-2.8); TOTAL PROTEIN 6.3 g/dL (6.7-8.2)
[2018-03-03] MEDS: FAMOTIDINE 20 MG/50 ML 50 ML IV SCH ×2 (09:02→20:02)
[2018-03-03] MEDS: LISINOPRIL 20 MG TABLET PO SCH (09:02)
[2018-03-03] MEDS: ENOXAPARIN 40 MG/0.4 ML SYRINGE SUBQ SCH (09:03)
[2018-03-03] MEDS: VENLAFAXINE ER 75 MG CAPSULE PO SCH ×2 (11:39→20:02)
[2018-03-03] MEDS: DEXTROSE 5%-0.45% NACL 1,000 ML IV SCH (13:41)
--- NOTE | 2018-03-03 13:48 | PROVIDER PROGRESS NOTE ---
Subjective - Prog Note Date Prog Note Date: 03/03/18 - Subjective Pt reports feeling: No change Subjective: pt has hx of chronic pain. pt had Hydromorphin and Morphin for her abdominal pain. But pt report she still has some left lower abdominal pain. Pt denies fever, chill, CP, SOB. Current Medications - Current Medications Current Medications: Active Medications Baclofen (Lioresal) 20 mg PO TID PRN PRN Reason: Spasms Cyclobenzaprine HCl (Flexeril) 10 mg PO QPM PRN PRN Reason: Spasms Enoxaparin Sodium (Lovenox) 40 mg SUBQ DAILY [facility] [place] Last Admin: 03/03/18 09:03 Dose: 40 mg Hydrochlorothiazide (Hydrodiuril) 25 mg PO DAILY [facility] [place] Hydromorphone HCl (Dilaudid (Vial)) 1 mg IVP Q2H PRN PRN Reason: Abdominal Pain Hydromorphone HCl (Dilaudid (Vial)) 2 mg IVP Q2H PRN PRN Reason: Abdominal Pain Last Admin: 03/03/18 13:40 Dose: 2 mg Piperacillin Sod/Tazobactam (Sod 3.375 gm/ Sodium Chloride) 100 mls @ 200 mls/ hr IV Q6H [facility] [place] Last Admin: 03/03/18 13:38 Dose: 200 mls/hr Famotidine (Pepcid 20 Mg/50 Ml) 50 mls @ 100 mls/hr IV BID [facility] [place] Last Admin: 03/03/18 09:02 Dose: 100 mls/hr Dextrose/Sodium Chloride (D5.45ns) 1,000 mls @ 125 mls/hr IV .Q8H [facility] [place] Last Admin: 03/03/18 13:41 Dose: 125 mls/hr Lisinopril (Zestril) 20 mg PO DAILY [facility] [place] Last Admin: 03/03/18 09:02 Dose: 20 mg Morphine Sulfate (Morphine) 10 mg IVP Q4H [facility] [place] Last Admin: 03/03/18 13:40 Dose: 10 mg Ondansetron HCl (Zofran Odt) 4 mg TL Q4HR PRN PRN Reason: Nausea / Vomiting Last Admin: 03/03/18 05:37 Dose: 4 mg Sodium Chloride (Normal Saline Flush 0.9%) 10 ml IVP 0100,0900,1700 [facility] [place] Last Admin: 03/03/18 02:27 Dose: 10 ml Sodium Chloride (Normal Saline Flush 0.9%) 10 ml IVP PRN PRN PRN Reason: NEEDED PER PROVIDER ORDERS Last Admin: 03/03/18 06:50 Dose: 10 ml Thyroid ([place] Thyroid) 120 mg PO QDAC [facility] Trazodone HCl (Desyrel) 200 mg PO HS PRN PRN Reason: Insomnia Venlafaxine HCl (Effexor Er) 150 mg PO DAILY [facility] [place] Last Admin: 03/03/18 11:39 Dose: 150 mg Venlafaxine HCl (Effexor Er) 75 mg PO QPM [facility] Venlafaxine HCl [Venlafaxine HCl ER] 75 mg PO QPM 06/17/17 hydroCHLOROthiazide [Hydrochlorothiazide] 25 mg PO DAILY 08/10/17 Albuterol Sulfate [Proair Respiclick] 2 puffs INH Q4H PRN 03/02/18 Baclofen [Lioresal] 20 mg PO TID PRN 03/02/18 Cyclobenzaprine [Flexeril] 10 mg PO QPM PRN 03/02/18 Morphine Sulfate [Morphine Sulfate ER] 30 mg PO QPM 03/02/18 Ondansetron HCl [Zofran] 4 - 8 mg PO DAILY PRN 03/02/18 Oxycodone HCl [Roxicodone] 15 mg PO Q4H PRN MDD 5 tabs 03/02/18 Thyroid,Pork [[place] Thyroid] 120 mg PO QDAC 03/02/18 Venlafaxine HCl [Venlafaxine HCl ER] 150 mg PO DAILY 03/02/18 traZODone [Desyrel] 200 mg PO HS PRN 03/02/18 Objective - Vital Signs/Intake & Output Reviewed Vital Signs: Yes Vital Signs: Vital Signs x48h Temp Pulse Resp BP Pulse Ox 03/03/18 11:41 36.8 C 52 L 16 146/92 H 99 03/03/18 08:05 36.7 C 66 18 128/75 100 Intake & Output: Intake & Output 02/28/18 03/01/18 03/02/18 03/03/18 23:59 23:59 23:59 23:59 Intake Total 152 3477.0 1200 Output Total 1500 Balance 152 3477.0 -300 - Objective General Appearance: positive: No acute distress, Alert. negative: Lethargic Eyes Bilateral: positive: Normal inspection, PERRL, No lid inflammation, Conjunctivae nml ENT: positive: ENT inspection nml, Pharynx nml, No signs of dehydration. negative: Purulent nasal drainage, Pharyngeal erythema, Oral lesions Neck: positive: Nml inspection, Thyroid nml, No JVD, Trachea midline. negative : Thyromegaly, Lymphadenopathy (R), Lymphadenopathy (L), Stiff neck, Swelling/ bruising, Tracheal deviation Respiratory: positive: Chest non-tender, No respiratory distress, Breath sounds nml. negative: Wheezes, Rales, Rhonchi Cardiovascular: positive: Regular rate & rhythm, No murmur, No gallop. negative : Irregularly irregular, Extrasystoles, Tachycardia, Bradycardia, JVD present, Systolic murmur, Diastolic murmur Peripheral Pulses: 2+ Radial (R), 2+ Radial (L), 2+ Dorsalis pedis (R), 2+ Dorsalis pedis (L) Abdomen: positive: Non-tender, No organomegaly, Nml bowel sounds, No distention. negative: Tenderness, Guarding, Rebound Back: positive: Nml inspection. negative: CVA tenderness (R), CVA tenderness (L ) Skin: positive: Color nml, No rash, Warm, Dry. negative: Cyanosis, Diaphoresis , Pallor Extremities: positive: Non-tender, Full ROM, Nml appearance. negative: Calf tenderness, Joint swelling, Zac's sign/cords Neurologic/Psychiatric: positive: Oriented x3, Motor nml, Sensation nml, Mood/ affect nml. negative: Weakness, Sensory loss, Facial droop, Slurred/abnml speech, Depressed mood/affect - Lab Results Fish Bones: 03/03/18 08:05 03/03/18 08:05 Other Labs: Lab Results x24hrs 03/03/18 03/03/18 Range/Units 08:05 08:05 WBC 8.2 (4.8-10.8) x10^3/uL RBC 4.12 L (4.20-5.40) 10^6/uL Hgb 12.9 (12.0-16.0) g/dL Hct 38.5 (37.0-47.0) % MCV 93.6 (81.0-99.0) fL MCH 31.4 H (27.0-31.0) pg MCHC 33.5 (32.0-36.0) g/dL RDW 13.0 (12.0-15.0) % Plt Count 233 (130-450) 10^3/uL MPV 8.0 (7.9-10.8) fL Neut # (Auto) 3.6 (1.5-6.6) 10^3/uL Lymph # (Auto) 3.5 (1.5-3.5) 10^3/uL [place] # (Auto) 0.6 (0.0-1.0) 10^3/uL Eos # (Auto) 0.3 (0.0-0.7) 10^3/uL Baso # (Auto) 0.1 (0.0-0.1) 10^3/uL Absolute Nucleated RBC 0.00 x10^3/uL Nucleated RBC % 0.0 /100WBC Sodium 138 (135-145) mmol/L Potassium 3.7 (3.5-5.0) mmol/L Chloride 108 (101-111) mmol/L Carbon Dioxide 22 (21-32) mmol/L Anion Gap 8.0 (6-13) BUN 9 (6-20) mg/dL Creatinine 0.8 (0.4-1.0) mg/dL Estimated GFR (MDRD) 74 L (>89) Glucose 71 (70-100) mg/dL Calcium 8.5 (8.5-10.3) mg/dL Magnesium 1.9 (1.7-2.8) mg/dL Total Bilirubin 0.7 (0.2-1.0) mg/dL AST 17 (10-42) IU/L ALT 13 (10-60) IU/L Alkaline Phosphatase 61 (42-121) IU/L Total Protein 6.3 L (6.7-8.2) g/dL Albumin 3.2 (3.2-5.5) g/dL Globulin 3.1 (2.1-4.2) g/dL Albumin/Globulin Ratio 1.0 (1.0-2.2) ABX Reporting Has patient been on IV antibiotics over the past 48 hours?: Yes Assessment/Plan - Problem List (1) Diverticulitis Impression: CT of abdomen reveals sigmoid diverticulitis with fistula track. Surgeon Dr. Gilmar Newman is admission physician to manage pt, will follow up continue Zosyn continue monitor pt with /Friday CT (2) HTN (hypertension) Impression: stable, continue HCTZ vital monitor (3) Abdominal pain Impression: with pt's hx of chronic pain. pain control with hydromorphine and Morphine (4) Hypothyroidism Impression: resume home meds check TSH (5) Depression Impression: stable, resume home meds
[2018-03-03] MEDS ORDERED: CYCLOBENZAPRINE 10 MG TABLET PO PRN (21:00)
--- NOTE | 2018-03-04 00:08 | PROVIDER PROGRESS NOTE ---
Subjective - General Admit Date: 03/01/18 - Review of Systems Pulmonary: positive: No symptoms Cardiovascular: positive: No symptoms Gastrointestinal: positive: Abdominal pain (Pain medication change has improved her abdominal discomfort.), Diarrhea All Other Systems: positive: Reviewed and negative Objective - Patient Data Vital Signs: Vital Signs x48h Temp Pulse Resp BP Pulse Ox 03/03/18 20:31 36.8 C 72 16 112/61 97 Intake & Output: Intake and Output Totals x24h 03/02/18 03/03/18 03/04/18 23:59 23:59 23:59 Intake Total 3477.0 1500 Output Total 1500 Balance 3477.0 0 - Lab Results Lab Results: 03/03/18 08:05 03/03/18 08:05 Other Lab Results: Lab Results x24hrs 03/03/18 03/03/18 Range/Units 08:05 08:05 WBC 8.2 (4.8-10.8) x10^3/uL RBC 4.12 L (4.20-5.40) 10^6/uL Hgb 12.9 (12.0-16.0) g/dL Hct 38.5 (37.0-47.0) % MCV 93.6 (81.0-99.0) fL MCH 31.4 H (27.0-31.0) pg MCHC 33.5 (32.0-36.0) g/dL RDW 13.0 (12.0-15.0) % Plt Count 233 (130-450) 10^3/uL MPV 8.0 (7.9-10.8) fL Neut # (Auto) 3.6 (1.5-6.6) 10^3/uL Lymph # (Auto) 3.5 (1.5-3.5) 10^3/uL [place] # (Auto) 0.6 (0.0-1.0) 10^3/uL Eos # (Auto) 0.3 (0.0-0.7) 10^3/uL Baso # (Auto) 0.1 (0.0-0.1) 10^3/uL Absolute Nucleated RBC 0.00 x10^3/uL Nucleated RBC % 0.0 /100WBC Sodium 138 (135-145) mmol/L Potassium 3.7 (3.5-5.0) mmol/L Chloride 108 (101-111) mmol/L Carbon Dioxide 22 (21-32) mmol/L Anion Gap 8.0 (6-13) BUN 9 (6-20) mg/dL Creatinine 0.8 (0.4-1.0) mg/dL Estimated GFR (MDRD) 74 L (>89) Glucose 71 (70-100) mg/dL Calcium 8.5 (8.5-10.3) mg/dL Magnesium 1.9 (1.7-2.8) mg/dL Total Bilirubin 0.7 (0.2-1.0) mg/dL AST 17 (10-42) IU/L ALT 13 (10-60) IU/L Alkaline Phosphatase 61 (42-121) IU/L Total Protein 6.3 L (6.7-8.2) g/dL Albumin 3.2 (3.2-5.5) g/dL Globulin 3.1 (2.1-4.2) g/dL Albumin/Globulin Ratio 1.0 (1.0-2.2) - Current Medications Current Medications: Current Medications Generic Name Dose Route Start Last Admin Trade Name Freq PRN Reason Stop Dose Admin Enoxaparin Sodium 40 mg 03/01/18 21:00 03/03/18 09:03 Lovenox SUBQ 40 mg DAILY [facility] Administration Hydromorphone HCl 2 mg 03/01/18 19:52 03/03/18 20:01 Dilaudid (Vial) IVP 2 mg Q2H PRN Administration Abdominal Pain Piperacillin Sod/Tazobactam 100 mls @ 200 mls/hr 03/02/18 02:00 03/03/18 19: 52 Sod 3.375 gm/ Sodium Chloride IV Infused Q6H [facility] Infusion Famotidine 50 mls @ 100 mls/hr 03/02/18 21:00 03/03/18 20:55 Pepcid 20 Mg/50 Ml IV Infused BID [facility] Infusion Dextrose/Sodium Chloride 1,000 mls @ 125 mls/hr 03/03/18 12:00 03/03/18 13:41 D5.45ns IV 125 mls/hr .Q8H [facility] Administration Lisinopril 20 mg 03/01/18 21:00 03/03/18 09:02 Zestril PO 20 mg DAILY E[facility] Administration Morphine Sulfate 10 mg 06/24/18 21:00 03/03/18 20:01 Morphine IVP 10 mg Q4H [facility] Administration Ondansetron HCl 4 mg 03/02/18 00:17 03/03/18 05:37 Zofran Odt TL 4 mg Q4HR PRN Administration Nausea / Vomiting Sodium Chloride 10 ml 03/02/18 01:00 03/03/18 15:56 Normal Saline Flush 0.9% IVP 10 ml 0100,0900,1700 [facility] Administration Sodium Chloride 10 ml 03/01/18 19:46 03/03/18 06:50 Normal Saline Flush 0.9% IVP 10 ml PRN PRN Administration NEEDED PER PROVIDER ORDERS Venlafaxine HCl 150 mg 03/03/18 12:30 03/03/18 11:39 Effexor Er PO 150 mg DAILY [facility] Administration Venlafaxine HCl 75 mg 03/03/18 21:00 03/03/18 20:02 Effexor Er PO 75 mg QPM [facility] Administration - Physical Exam Abdomen: positive: Tenderness (in the llq without peritoneal signs.) Impression/Plan - Problem List Problem List: Contained perforated diverticulitis. Her pain is less then yesterday with pain medication change. She is now starting to have bowel function passing flatus and having loose bowel movements. -start liquids -continue iv antibiotics -if symptoms do not resolve or improve significantly in the next 2 days, then would recommend repeat ct scan of abdomen/pelvis.
[2018-03-04] MEDS: MORPHINE 10 MG/ML VIAL IVP SCH ×6 (00:39→21:10)
[2018-03-04] MEDS: SODIUM CHLORIDE FLUSH 0.9% 10 ML SYRINGE IVP SCH ×2 (00:39→16:58)
[2018-03-04] MEDS: ONDANSETRON ODT 4 MG TABLET TL PRN ×2 (00:42→16:53)
[2018-03-04] MEDS ORDERED: HYDROmorphone 2 MG TABLET PO PRN (01:54)
[2018-03-04] MEDS ORDERED: CIPROFLOXACIN 250 MG TABLET PO SCH (01:54)
[2018-03-04] MEDS ORDERED: metroNIDAZOLE 250 MG TABLET PO SCH (01:54)
[2018-03-04] MEDS ORDERED: MORPHINE SOL 10 MG/0.5 ML SYRINGE PO PRN (01:55)
[2018-03-04] MEDS: DEXTROSE 5%-0.45% NACL 1,000 ML IV SCH ×3 (02:06→14:19)
[2018-03-04] MEDS: PIPERACILLIN/TAZOBACTAM 3.375 GM in SODIUM CHLORIDE 0.9% MINIBAG 100 ML IV SCH ×4 (02:07→20:15)
[2018-03-04] MEDS: traZODone 50 MG TABLET PO PRN ×2 (02:27→22:41)
[2018-03-04 06:03] LABS: BASOPHILS # (AUTO) 0.1 10^3/uL (0.0-0.1); BASOPHILS % (AUTO) 0.9 %; EOSINOPHILS # (AUTO) 0.2 10^3/uL (0.0-0.7); EOSINOPHILS % (AUTO) 3.2 %; HGB - HEMOGLOBIN 13.6 g/dL (12.0-16.0); LYMPHOCYTES # (AUTO) 1.9 10^3/uL (1.5-3.5); LYMPHOCYTES % (AUTO) 26.3 %; MEAN CORPUSCULAR HEMOGLOBIN 31.5 pg (27.0-31.0); MEAN CORPUSCULAR VOLUME 92.8 fL (81.0-99.0); MEAN PLATELET VOLUME 8.1 fL (7.9-10.8); MONOCYTES # (AUTO) 0.6 10^3/uL (0.0-1.0); NEUTROPHILS # (AUTO) 4.5 10^3/uL (1.5-6.6); NEUTROPHILS % (AUTO) 61.6 %; PLT - PLATELET COUNT 223 10^3/uL (130-450); RED BLOOD COUNT 4.33 10^6/uL (4.20-5.40); RED CELL DISTRIBUTION WIDTH 12.7 % (12.0-15.0); WHITE BLOOD COUNT 7.3 x10^3/uL (4.8-10.8)
[2018-03-04 06:14] LABS: ALBUMIN 3.4 g/dL (3.2-5.5); CALCIUM 8.9 mg/dL (8.5-10.3); CREATININE 0.7 mg/dL (0.4-1.0); TOTAL PROTEIN 6.7 g/dL (6.7-8.2)
[2018-03-04] MEDS: THYROID 60 MG TABLET PO SCH (06:46)
[2018-03-04] MEDS ORDERED: POTASSIUM CHLORIDE 20 MEQ TABLET PO ONE (07:53)
[2018-03-04] MEDS: hydroCHLOROthiazide 25 MG TABLET PO SCH (09:27)
[2018-03-04] MEDS: LISINOPRIL 20 MG TABLET PO SCH (09:27)
[2018-03-04] MEDS: ENOXAPARIN 40 MG/0.4 ML SYRINGE SUBQ SCH (09:28)
[2018-03-04] MEDS: FAMOTIDINE 20 MG/50 ML 50 ML IV SCH ×2 (09:28→21:11)
[2018-03-04] MEDS: VENLAFAXINE ER 75 MG CAPSULE PO SCH ×2 (09:30→21:11)
[2018-03-04] MEDS ORDERED: GENTAMICIN PER PHARMACY (DO NOT LOAD) IV SCH (10:00)
[2018-03-04] MEDS: HYDROmorphone 2 MG/ML VIAL IVP PRN ×4 (10:49→23:17)
[2018-03-04] MEDS: GENTAMICIN 440 MG in SODIUM CHLORIDE 0.9% 100ML 100 ML IV SCH (11:37)
--- NOTE | 2018-03-04 13:35 | PROVIDER PROGRESS NOTE ---
Subjective - Prog Note Date Prog Note Date: 03/04/18 - Subjective Pt reports feeling: No change Subjective: pt still report she has pain in her low left quadrant of abdomen. Pt is with hx of chronic pain. surgeon ordered PICC for pt, and plan to have CT of abdomen if pt continue to complaint of symptoms. Current Medications - Current Medications Current Medications: Active Medications Baclofen (Lioresal) 20 mg PO TID PRN PRN Reason: Spasms Cyclobenzaprine HCl (Flexeril) 10 mg PO QPM PRN PRN Reason: Spasms Enoxaparin Sodium (Lovenox) 40 mg SUBQ DAILY [facility] Last Admin: 03/04/18 09:28 Dose: Not Given Hydrochlorothiazide (Hydrodiuril) 25 mg PO DAILY [facility] Last Admin: 03/04/18 09:27 Dose: 25 mg Hydromorphone HCl (Dilaudid (Vial)) 1 mg IVP Q2H PRN PRN Reason: Abdominal Pain Hydromorphone HCl (Dilaudid (Vial)) 2 mg IVP Q2H PRN PRN Reason: Abdominal Pain Last Admin: 03/04/18 10:49 Dose: 2 mg Hydromorphone HCl (Dilaudid) 4 mg PO Q2H PRN PRN Reason: Severe Pain Piperacillin Sod/Tazobactam (Sod 3.375 gm/ Sodium Chloride) 100 mls @ 200 mls/ hr IV Q6H [facility] Last Infusion: 03/04/18 10:45 Dose: Infused Famotidine (Pepcid 20 Mg/50 Ml) 50 mls @ 100 mls/hr IV BID [facility] Last Infusion: 03/04/18 10:45 Dose: Infused Dextrose/Sodium Chloride (D5.45ns) 1,000 mls @ 125 mls/hr IV .Q8H [facility] Last Admin: 03/04/18 04:12 Dose: Not Given Gentamicin Sulfate 440 mg/ (Sodium Chloride) 111 mls @ 100 mls/hr IV Q24H [facility] Last Admin: 03/04/18 11:37 Dose: 100 mls/hr Lisinopril (Zestril) 20 mg PO DAILY [facility] Last Admin: 03/04/18 09:27 Dose: 20 mg Morphine Sulfate (Morphine) 10 mg IVP Q4H [facility] Last Admin: 03/04/18 13:09 Dose: 10 mg Morphine Sulfate (Roxanol) 10 mg PO Q2HR PRN PRN Reason: PAIN Last Admin: 03/04/18 06:46 Dose: 10 mg Ondansetron HCl (Zofran Odt) 4 mg TL Q4HR PRN PRN Reason: Nausea / Vomiting Last Admin: 03/04/18 00:42 Dose: 4 mg Sodium Chloride (Normal Saline Flush 0.9%) 10 ml IVP 0100,0900,1700 [facility] Last Admin: 03/04/18 00:39 Dose: 10 ml Sodium Chloride (Normal Saline Flush 0.9%) 10 ml IVP PRN PRN PRN Reason: NEEDED PER PROVIDER ORDERS Last Admin: 03/03/18 06:50 Dose: 10 ml Thyroid ([place] Thyroid) 120 mg PO QDAC [facility] Last Admin: 03/04/18 06:46 Dose: 120 mg Trazodone HCl (Desyrel) 200 mg PO HS PRN PRN Reason: Insomnia Last Admin: 03/04/18 02:27 Dose: 200 mg Venlafaxine HCl (Effexor Er) 150 mg PO DAILY [facility] Last Admin: 03/04/18 09:30 Dose: 150 mg Venlafaxine HCl (Effexor Er) 75 mg PO QPM [facility] Last Admin: 03/03/18 20:02 Dose: 75 mg Venlafaxine HCl [Venlafaxine HCl ER] 75 mg PO QPM 06/17/17 hydroCHLOROthiazide [Hydrochlorothiazide] 25 mg PO DAILY 08/10/17 Albuterol Sulfate [Proair Respiclick] 2 puffs INH Q4H PRN 03/02/18 Baclofen [Lioresal] 20 mg PO TID PRN 03/02/18 Cyclobenzaprine [Flexeril] 10 mg PO QPM PRN 03/02/18 Morphine Sulfate [Morphine Sulfate ER] 30 mg PO QPM 03/02/18 Ondansetron HCl [Zofran] 4 - 8 mg PO DAILY PRN 03/02/18 Oxycodone HCl [Roxicodone] 15 mg PO Q4H PRN MDD 5 tabs 03/02/18 Thyroid,Pork [[place] Thyroid] 120 mg PO QDAC 03/02/18 Venlafaxine HCl [Venlafaxine HCl ER] 150 mg PO DAILY 03/02/18 traZODone [Desyrel] 200 mg PO HS PRN 03/02/18 Objective - Vital Signs/Intake & Output Reviewed Vital Signs: Yes Vital Signs: Vital Signs x48h Temp Pulse Resp BP Pulse Ox 03/04/18 08:24 36.7 C 76 18 130/69 95 03/04/18 05:45 36.8 C 97 18 121/78 95 Intake & Output: Intake & Output 03/01/18 03/02/18 03/03/18 03/04/18 23:59 23:59 23:59 23:59 Intake Total 152 3477.0 1500 450 Output Total 1500 Balance 152 3477.0 0 450 - Objective General Appearance: positive: No acute distress, Alert. negative: Lethargic Eyes Bilateral: positive: Normal inspection, PERRL, No lid inflammation, Conjunctivae nml ENT: positive: ENT inspection nml, Pharynx nml, No signs of dehydration. negative: Purulent nasal drainage, Pharyngeal erythema, Oral lesions Neck: positive: Nml inspection, Thyroid nml, No JVD, Trachea midline. negative : Thyromegaly, Lymphadenopathy (R), Lymphadenopathy (L), Stiff neck, Swelling/ bruising, Tracheal deviation Respiratory: positive: Chest non-tender, No respiratory distress, Breath sounds nml. negative: Wheezes, Rales, Rhonchi Cardiovascular: positive: Regular rate & rhythm, No murmur, No gallop. negative : Irregularly irregular, Extrasystoles, Tachycardia, Bradycardia, Systolic murmur, Diastolic murmur Peripheral Pulses: 2+ Radial (R), 2+ Radial (L), 2+ Dorsalis pedis (R), 2+ Dorsalis pedis (L) Abdomen: positive: Non-tender, No organomegaly, Nml bowel sounds, No distention. negative: Tenderness, Guarding, Rebound Back: positive: Nml inspection. negative: CVA tenderness (R), CVA tenderness (L ) Skin: positive: Color nml, No rash, Warm, Dry. negative: Cyanosis, Diaphoresis , Pallor Extremities: positive: Non-tender, Full ROM, Nml appearance. negative: Calf tenderness, Joint swelling, Zac's sign/cords Neurologic/Psychiatric: positive: Oriented x3, Motor nml, Sensation nml, Mood/ affect nml. negative: Weakness, Sensory loss, Facial droop, Slurred/abnml speech, Depressed mood/affect - Lab Results Fish Bones: 03/04/18 05:34 03/04/18 05:34 Other Labs: Lab Results x24hrs 03/04/18 03/04/18 03/04/18 Range/Units 05:34 05:34 05:34 WBC 7.3 (4.8-10.8) x10^3/uL RBC 4.33 (4.20-5.40) 10^6/uL Hgb 13.6 (12.0-16.0) g/dL Hct 40.2 (37.0-47.0) % MCV 92.8 (81.0-99.0) fL MCH 31.5 H (27.0-31.0) pg MCHC 34.0 (32.0-36.0) g/dL RDW 12.7 (12.0-15.0) % Plt Count 223 (130-450) 10^3/uL MPV 8.1 (7.9-10.8) fL Neut # (Auto) 4.5 (1.5-6.6) 10^3/uL Lymph # (Auto) 1.9 (1.5-3.5) 10^3/uL [place] # (Auto) 0.6 (0.0-1.0) 10^3/uL Eos # (Auto) 0.2 (0.0-0.7) 10^3/uL Baso # (Auto) 0.1 (0.0-0.1) 10^3/uL Absolute Nucleated RBC 0.00 x10^3/uL Nucleated RBC % 0.1 /100WBC Sodium 138 (135-145) mmol/L Potassium 3.3 L (3.5-5.0) mmol/L Chloride 108 (101-111) mmol/L Carbon Dioxide 22 (21-32) mmol/L Anion Gap 8.0 (6-13) BUN 7 (6-20) mg/dL Creatinine 0.7 (0.4-1.0) mg/dL Estimated GFR (MDRD) 86 L (>89) Glucose 76 (70-100) mg/dL Calcium 8.9 (8.5-10.3) mg/dL Total Bilirubin 1.0 (0.2-1.0) mg/dL AST 26 (10-42) IU/L ALT 17 (10-60) IU/L Alkaline Phosphatase 68 (42-121) IU/L Total Protein 6.7 (6.7-8.2) g/dL Albumin 3.4 (3.2-5.5) g/dL Globulin 3.3 (2.1-4.2) g/dL Albumin/Globulin Ratio 1.0 (1.0-2.2) TSH 6.18 H (0.34-5.60) uIU/mL ABX Reporting Has patient been on IV antibiotics over the past 48 hours?: Yes Assessment/Plan - Problem List (1) Diverticulitis Impression: Impression: 03/04 continue with antibiotics, follow up surgeon, pt may have CT of abdomen if continue symptomatic CT of abdomen reveals sigmoid diverticulitis with fistula track. Surgeon Dr. Gilmar Newman is admission physician to manage pt, will follow up continue Zosyn continue monitor pt with /Friday CT (2) HTN (hypertension) Impression: 03/04 stable stable, continue HCTZ vital monitor (3) Abdominal pain Impression: 03/04 pt continue abdominal pain, pt will have PICC line and resume her pain meds with pt's hx of chronic pain. pain control with hydromorphine and Morphine (4) Hypothyroidism Impression: 03/04, slight elevated TSH, check T3 level, follow up resume home meds check TSH (5) Depression Impression: stable, resume home meds (4) Hypothyroidism Qualifiers: Hypothyroidism type: acquired Qualified Code(s): E03.9 - Hypothyroidism, unspecified (5) Depression Qualifiers: Depression Type: other depression Qualified Code(s): F32.89 - Other specified depressive episodes
--- NOTE | 2018-03-04 14:10 | XRAY Report ---
Procedure Date: 03/04/2018 Accession Number: [id number] / [id number] Procedure: [place] - Fluoro Independent Procedure CPT Code: FULL RESULT: EXAM: Fluoro Independent Procedure DATE: 03/04/2018 12:58 PM CLINICAL HISTORY: PICC LINE PLACMENT UNDER FLUORO TECHNIQUE: Fluoroscopy was provided to Dr. Persaud. 37 seconds of fluoroscopy time utilized. One spot image obtained. COMPARISON: None FINDINGS: Left arm PICC terminating in the distal superior vena cava. IMPRESSION: Fluoroscopic guidance for PICC placement with Dr. Persaud.
--- NOTE | 2018-03-04 18:04 | PROVIDER PROGRESS NOTE ---
Subjective - General Admit Date: 03/01/18 - Review of Systems Pulmonary: positive: No symptoms Cardiovascular: positive: No symptoms Gastrointestinal: positive: Abdominal pain (Pain medication change has improved her abdominal discomfort.), Diarrhea All Other Systems: positive: Reviewed and negative Objective - Patient Data Vital Signs: Vital Signs x48h Temp Pulse Resp BP Pulse Ox 03/04/18 15:35 36.9 C 84 18 124/71 97 03/04/18 13:29 82 118/74 98 03/04/18 13:00 36.6 C 84 18 124/75 95 Intake & Output: Intake and Output Totals x24h 03/02/18 03/03/18 03/04/18 23:59 23:59 23:59 Intake Total 3477.0 2500 1141 Output Total 1500 Balance 3477.0 1000 1141 - Lab Results Lab Results: 03/04/18 05:34 03/04/18 05:34 Other Lab Results: Lab Results x24hrs 03/04/18 03/04/18 03/04/18 Range/Units 05:34 05:34 05:34 WBC 7.3 (4.8-10.8) x10^3/uL RBC 4.33 (4.20-5.40) 10^6/uL Hgb 13.6 (12.0-16.0) g/dL Hct 40.2 (37.0-47.0) % MCV 92.8 (81.0-99.0) fL MCH 31.5 H (27.0-31.0) pg MCHC 34.0 (32.0-36.0) g/dL RDW 12.7 (12.0-15.0) % Plt Count 223 (130-450) 10^3/uL MPV 8.1 (7.9-10.8) fL Neut # (Auto) 4.5 (1.5-6.6) 10^3/uL Lymph # (Auto) 1.9 (1.5-3.5) 10^3/uL [place] # (Auto) 0.6 (0.0-1.0) 10^3/uL Eos # (Auto) 0.2 (0.0-0.7) 10^3/uL Baso # (Auto) 0.1 (0.0-0.1) 10^3/uL Absolute Nucleated RBC 0.00 x10^3/uL Nucleated RBC % 0.1 /100WBC Sodium 138 (135-145) mmol/L Potassium 3.3 L (3.5-5.0) mmol/L Chloride 108 (101-111) mmol/L Carbon Dioxide 22 (21-32) mmol/L Anion Gap 8.0 (6-13) BUN 7 (6-20) mg/dL Creatinine 0.7 (0.4-1.0) mg/dL Estimated GFR (MDRD) 86 L (>89) Glucose 76 (70-100) mg/dL Calcium 8.9 (8.5-10.3) mg/dL Total Bilirubin 1.0 (0.2-1.0) mg/dL AST 26 (10-42) IU/L ALT 17 (10-60) IU/L Alkaline Phosphatase 68 (42-121) IU/L Total Protein 6.7 (6.7-8.2) g/dL Albumin 3.4 (3.2-5.5) g/dL Globulin 3.3 (2.1-4.2) g/dL Albumin/Globulin Ratio 1.0 (1.0-2.2) TSH 6.18 H (0.34-5.60) uIU/mL - Current Medications Current Medications: Current Medications Generic Name Dose Route Start Last Admin Trade Name Freq PRN Reason Stop Dose Admin Enoxaparin Sodium 40 mg 03/01/18 21:00 03/04/18 09:28 Lovenox SUBQ Not Given DAILY [facility] Hydrochlorothiazide 25 mg 03/04/18 09:00 03/04/18 09:27 Hydrodiuril PO 25 mg DAILY [facility] Administration Hydromorphone HCl 2 mg 03/01/18 19:52 03/04/18 15:59 Dilaudid (Vial) IVP 2 mg Q2H PRN Administration Abdominal Pain Piperacillin Sod/Tazobactam 100 mls @ 200 mls/hr 03/02/18 02:00 03/04/18 14: 54 Sod 3.375 gm/ Sodium Chloride IV Infused Q6H [facility] Infusion Famotidine 50 mls @ 100 mls/hr 03/02/18 21:00 03/04/18 10:45 Pepcid 20 Mg/50 Ml IV Infused BID [facility] Infusion Dextrose/Sodium Chloride 1,000 mls @ 125 mls/hr 03/03/18 12:00 03/04/18 14:19 D5.45ns IV 125 mls/hr .Q8H [facility] Administration Gentamicin Sulfate 440 mg/ 111 mls @ 100 mls/hr 03/04/18 11:00 03/04/18 13:59 Sodium Chloride IV Infused Q24H [facility] Infusion Lisinopril 20 mg 03/01/18 21:00 03/04/18 09:27 Zestril PO 20 mg DAILY [facility] Administration Morphine Sulfate 10 mg 03/01/18 21:00 03/04/18 16:58 Morphine IVP 10 mg Q4H [facility] Administration Morphine Sulfate 10 mg 03/04/18 01:55 03/04/18 06:46 Roxanol PO 10 mg Q2HR PRN Administration PAIN Ondansetron HCl 4 mg 03/02/18 00:17 03/04/18 16:53 Zofran Odt TL 4 mg Q4HR PRN Administration Nausea / Vomiting Sodium Chloride 10 ml 03/02/18 01:00 03/04/18 16:58 Normal Saline Flush 0.9% IVP 10 ml 0100,[id number],1700 [facility] Administration Sodium Chloride 10 ml 03/01/18 19:46 03/03/18 06:50 Normal Saline Flush 0.9% IVP 10 ml PRN PRN Administration NEEDED PER PROVIDER ORDERS Thyroid 120 mg 03/04/18 07:00 03/04/18 06:46 [place] Thyroid PO 120 mg QDAC [facility] Administration Trazodone HCl 200 mg 03/03/18 21:00 03/04/18 02:27 Desyrel PO 200 mg HS PRN Administration Insomnia Venlafaxine HCl 150 mg 03/03/18 12:30 03/04/18 09:30 Effexor Er PO 150 mg DAILY [facility] Administration Venlafaxine HCl 75 mg 03/03/18 21:00 03/03/18 20:02 Effexor Er PO 75 mg QPM [facility] Administration
[2018-03-04] MEDS: SODIUM CHLORIDE FLUSH 0.9% 10 ML SYRINGE IVP PRN ×2 (20:15→21:10)
[2018-03-05] MEDS: MORPHINE 10 MG/ML VIAL IVP SCH ×6 (00:38→21:05)
[2018-03-05] MEDS: DEXTROSE 5%-0.45% NACL 1,000 ML IV SCH ×3 (00:39→14:15)
[2018-03-05] MEDS: PIPERACILLIN/TAZOBACTAM 3.375 GM in SODIUM CHLORIDE 0.9% MINIBAG 100 ML IV SCH ×4 (01:41→19:44)
[2018-03-05] MEDS: ONDANSETRON ODT 4 MG TABLET TL PRN (01:42)
[2018-03-05] MEDS: SODIUM CHLORIDE FLUSH 0.9% 10 ML SYRINGE IVP SCH ×3 (01:42→17:05)
[2018-03-05] MEDS: HYDROmorphone 2 MG/ML VIAL IVP PRN ×6 (01:42→19:56)
[2018-03-05 05:59] LABS: BASOPHILS # (AUTO) 0.1 10^3/uL (0.0-0.1); BASOPHILS % (AUTO) 0.9 %; EOSINOPHILS # (AUTO) 0.5 10^3/uL (0.0-0.7); EOSINOPHILS % (AUTO) 6.6 %; HGB - HEMOGLOBIN 12.7 g/dL (12.0-16.0); LYMPHOCYTES # (AUTO) 3.2 10^3/uL (1.5-3.5); LYMPHOCYTES % (AUTO) 42.8 %; MEAN CORPUSCULAR HEMOGLOBIN 31.1 pg (27.0-31.0); MEAN CORPUSCULAR HGB CONC 33.8 g/dL (32.0-36.0); MEAN CORPUSCULAR VOLUME 91.9 fL (81.0-99.0); MEAN PLATELET VOLUME 8.1 fL (7.9-10.8); MONOCYTES # (AUTO) 0.7 10^3/uL (0.0-1.0); MONOCYTES % (AUTO) 9.7 %; PLT - PLATELET COUNT 218 10^3/uL (130-450); RED BLOOD COUNT 4.08 10^6/uL (4.20-5.40); WHITE BLOOD COUNT 7.4 x10^3/uL (4.8-10.8)
[2018-03-05 06:12] LABS: ALBUMIN 3.3 g/dL (3.2-5.5); BILIRUBIN,TOTAL 0.7 mg/dL (0.2-1.0); CREATININE 0.7 mg/dL (0.4-1.0); TOTAL PROTEIN 6.6 g/dL (6.7-8.2)
[2018-03-05] MEDS: THYROID 60 MG TABLET PO SCH (06:37)
[2018-03-05] MEDS: VENLAFAXINE ER 75 MG CAPSULE PO SCH ×2 (08:22→20:41)
[2018-03-05] MEDS: FAMOTIDINE 20 MG/50 ML 50 ML IV SCH ×2 (08:22→20:40)
[2018-03-05] MEDS: hydroCHLOROthiazide 25 MG TABLET PO SCH (08:22)
[2018-03-05] MEDS: ENOXAPARIN 40 MG/0.4 ML SYRINGE SUBQ SCH (08:22)
[2018-03-05] MEDS: LISINOPRIL 20 MG TABLET PO SCH (08:22)
[2018-03-05] MEDS: GENTAMICIN 440 MG in SODIUM CHLORIDE 0.9% 100ML 100 ML IV SCH (11:52)
--- NOTE | 2018-03-05 12:04 | PROVIDER PROGRESS NOTE ---
Subjective - Prog Note Date Prog Note Date: 03/05/18 - Subjective Pt reports feeling: Improved Subjective: pt report she is doing better. NO fever, chill, CP, SOB. Current Medications - Current Medications Current Medications: Active Medications Baclofen (Lioresal) 20 mg PO TID PRN PRN Reason: Spasms Cyclobenzaprine HCl (Flexeril) 10 mg PO QPM PRN PRN Reason: Spasms Enoxaparin Sodium (Lovenox) 40 mg SUBQ DAILY [facility] Last Admin: 03/05/18 08:22 Dose: 40 mg Hydrochlorothiazide (Hydrodiuril) 25 mg PO DAILY [facility] Last Admin: 03/05/18 08:22 Dose: 25 mg Hydromorphone HCl (Dilaudid (Vial)) 1 mg IVP Q2H PRN PRN Reason: Abdominal Pain Hydromorphone HCl (Dilaudid (Vial)) 2 mg IVP Q2H PRN PRN Reason: Abdominal Pain Last Admin: 03/05/18 10:39 Dose: 2 mg Hydromorphone HCl (Dilaudid) 4 mg PO Q2H PRN PRN Reason: Severe Pain Piperacillin Sod/Tazobactam (Sod 3.375 gm/ Sodium Chloride) 100 mls @ 200 mls/ hr IV Q6H [facility] Last Infusion: 03/05/18 08:47 Dose: Infused Famotidine (Pepcid 20 Mg/50 Ml) 50 mls @ 100 mls/hr IV BID [facility] Last Infusion: 03/05/18 10:10 Dose: Infused Gentamicin Sulfate 440 mg/ (Sodium Chloride) 111 mls @ 100 mls/hr IV Q24H [facility] Last Admin: 03/05/18 11:52 Dose: 100 mls/hr Dextrose/Sodium Chloride (D5.45ns) 1,000 mls @ 83.3 mls/hr IV .Q12H1M [facility] Lisinopril (Zestril) 20 mg PO DAILY [facility] Last Admin: 03/05/18 08:22 Dose: 20 mg Morphine Sulfate (Morphine) 10 mg IVP Q4H [facility] Last Admin: 03/05/18 08:22 Dose: 10 mg Morphine Sulfate (Roxanol) 10 mg PO Q2HR PRN PRN Reason: PAIN Last Admin: 03/04/18 06:46 Dose: 10 mg Ondansetron HCl (Zofran Odt) 4 mg TL Q4HR PRN PRN Reason: Nausea / Vomiting Last Admin: 03/05/18 01:42 Dose: 4 mg Sodium Chloride (Normal Saline Flush 0.9%) 10 ml IVP 0100,0900,1700 [facility] Last Admin: 03/05/18 08:23 Dose: 10 ml Sodium Chloride (Normal Saline Flush 0.9%) 10 ml IVP PRN PRN PRN Reason: NEEDED PER PROVIDER ORDERS Last Admin: 03/04/18 21:10 Dose: 10 ml Thyroid (Phillips Thyroid) 120 mg PO QDAC [facility] Last Admin: 03/05/18 06:37 Dose: 120 mg Trazodone HCl (Desyrel) 200 mg PO HS PRN PRN Reason: Insomnia Last Admin: 03/04/18 22:41 Dose: 200 mg Venlafaxine HCl (Effexor Er) 150 mg PO DAILY [facility] Last Admin: 03/05/18 08:22 Dose: 150 mg Venlafaxine HCl (Effexor Er) 75 mg PO QPM [facility] Last Admin: 03/04/18 21:11 Dose: 75 mg Venlafaxine HCl [Venlafaxine HCl ER] 75 mg PO QPM 06/17/17 hydroCHLOROthiazide [Hydrochlorothiazide] 25 mg PO DAILY 08/10/17 Albuterol Sulfate [Proair Respiclick] 2 puffs INH Q4H PRN 03/02/18 Baclofen [Lioresal] 20 mg PO TID PRN 03/02/18 Cyclobenzaprine [Flexeril] 10 mg PO QPM PRN 03/02/18 Morphine Sulfate [Morphine Sulfate ER] 30 mg PO QPM 03/02/18 Ondansetron HCl [Zofran] 4 - 8 mg PO DAILY PRN 03/02/18 Oxycodone HCl [Roxicodone] 15 mg PO Q4H PRN MDD 5 tabs 03/02/18 Thyroid,Pork [[place]ips Thyroid] 120 mg PO QDAC 03/02/18 Venlafaxine HCl [Venlafaxine HCl ER] 150 mg PO DAILY 03/02/18 traZODone [Desyrel] 200 mg PO HS PRN 03/02/18 Objective - Vital Signs/Intake & Output Reviewed Vital Signs: Yes Vital Signs: Vital Signs x48h Temp Pulse Resp BP Pulse Ox 03/05/18 07:32 36.8 C 60 16 136/75 H 98 03/05/18 05:00 36.7 C 67 14 153/91 H 97 Intake & Output: Intake & Output 03/02/18 03/03/18 03/04/18 03/05/18 23:59 23:59 23:59 23:59 Intake Total 3477.0 2500 2291.000 2190 Output Total 1500 900 Balance 3477.0 1000 1226.724 6197 - Objective General Appearance: positive: No acute distress, Alert. negative: Lethargic Eyes Bilateral: positive: Normal inspection, PERRL, No lid inflammation, Conjunctivae nml ENT: positive: ENT inspection nml, Pharynx nml, No signs of dehydration. negative: Purulent nasal drainage, Pharyngeal erythema, Oral lesions Neck: positive: Nml inspection, Thyroid nml, No JVD, Trachea midline. negative : Thyromegaly, Lymphadenopathy (R), Lymphadenopathy (L), Stiff neck, Swelling/ bruising, Tracheal deviation Respiratory: positive: Chest non-tender, No respiratory distress, Breath sounds nml. negative: Wheezes, Rales, Rhonchi Cardiovascular: positive: Regular rate & rhythm, No murmur, No gallop. negative : Irregularly irregular, Extrasystoles, Tachycardia, Bradycardia, JVD present, Systolic murmur, Diastolic murmur Peripheral Pulses: 2+ Radial (R), 2+ Radial (L), 2+ Dorsalis pedis (R), 2+ Dorsalis pedis (L) Abdomen: positive: Non-tender, No organomegaly, Nml bowel sounds, No distention. negative: Tenderness, Guarding, Rebound Back: positive: Nml inspection. negative: CVA tenderness (R), CVA tenderness (L ) Skin: positive: Color nml, No rash, Warm, Dry. negative: Cyanosis, Diaphoresis , Pallor Extremities: positive: Non-tender, Full ROM, Nml appearance. negative: Calf tenderness, Joint swelling, Zac's sign/cords Neurologic/Psychiatric: positive: Oriented x3, Motor nml, Sensation nml, Mood/ affect nml. negative: Weakness, Sensory loss, Facial droop, Slurred/abnml speech, Depressed mood/affect - Lab Results Fish Bones: 03/05/18 05:40 03/05/18 05:40 Other Labs: Lab Results x24hrs 03/05/18 03/05/18 03/05/18 Range/Units 05:40 05:40 05:40 WBC (4.8-10.8) x10^3/uL RBC (4.20-5.40) 10^6/uL Hgb (12.0-16.0) g/dL Hct (37.0-47.0) % MCV (81.0-99.0) fL MCH (27.0-31.0) pg MCHC (32.0-36.0) g/dL RDW (12.0-15.0) % Plt Count (130-450) 10^3/uL MPV (7.9-10.8) fL Neut # (Auto) (1.5-6.6) 10^3/uL Lymph # (Auto) (1.5-3.5) 10^3/uL [place] # (Auto) (0.0-1.0) 10^3/uL Eos # (Auto) (0.0-0.7) 10^3/uL Baso # (Auto) (0.0-0.1) 10^3/uL Absolute Nucleated RBC x10^3/uL Nucleated RBC % /100WBC Sodium 138 (135-145) mmol/L Potassium 3.7 (3.5-5.0) mmol/L Chloride 107 (101-111) mmol/L Carbon Dioxide 25 (21-32) mmol/L Anion Gap 6.0 (6-13) BUN 6 (6-20) mg/dL Creatinine 0.7 (0.4-1.0) mg/dL Estimated GFR (MDRD) 86 L (>89) Glucose 88 (70-100) mg/dL Calcium 9.0 (8.5-10.3) mg/dL Total Bilirubin 0.7 (0.2-1.0) mg/dL AST 35 (10-42) IU/L ALT 24 (10-60) IU/L Alkaline Phosphatase 58 (42-121) IU/L Total Protein 6.6 L (6.7-8.2) g/dL Albumin 3.3 (3.2-5.5) g/dL Globulin 3.3 (2.1-4.2) g/dL Albumin/Globulin Ratio 1.0 (1.0-2.2) Free T3 pg/mL 2.69 (2.5-3.9) pg/mL Total T3 0.94 (0.87-1.78) ng/mL Random Gentamicin ug/mL 03/05/18 03/04/18 Range/Units 05:40 20:14 WBC 7.4 (4.8-10.8) x10^3/uL RBC 4.08 L (4.20-5.40) 10^6/uL Hgb 12.7 (12.0-16.0) g/dL Hct 37.5 (37.0-47.0) % MCV 91.9 (81.0-99.0) fL MCH 31.1 H (27.0-31.0) pg MCHC 33.8 (32.0-36.0) g/dL RDW 13.0 (12.0-15.0) % Plt Count 218 (130-450) 10^3/uL MPV 8.1 (7.9-10.8) fL Neut # (Auto) 3.0 (1.5-6.6) 10^3/uL Lymph # (Auto) 3.2 (1.5-3.5) 10^3/uL [place] # (Auto) 0.7 (0.0-1.0) 10^3/uL Eos # (Auto) 0.5 (0.0-0.7) 10^3/uL Baso # (Auto) 0.1 (0.0-0.1) 10^3/uL Absolute Nucleated RBC 0.00 x10^3/uL Nucleated RBC % 0.0 /100WBC Sodium (135-145) mmol/L Potassium (3.5-5.0) mmol/L Chloride (101-111) mmol/L Carbon Dioxide (21-32) mmol/L Anion Gap (6-13) BUN (6-20) mg/dL Creatinine (0.4-1.0) mg/dL Estimated GFR (MDRD) (>89) Glucose (70-100) mg/dL Calcium (8.5-10.3) mg/dL Total Bilirubin (0.2-1.0) mg/dL AST (10-42) IU/L ALT (10-60) IU/L Alkaline Phosphatase (42-121) IU/L Total Protein (6.7-8.2) g/dL Albumin (3.2-5.5) g/dL Globulin (2.1-4.2) g/dL Albumin/Globulin Ratio (1.0-2.2) Free T3 pg/mL (2.5-3.9) pg/mL Total T3 (0.87-1.78) ng/mL Random Gentamicin 5.5 ug/mL ABX Reporting Has patient been on IV antibiotics over the past 48 hours?: Yes Assessment/Plan - Problem List (1) Diverticulitis Impression: 03/05 pt is stable as her baselin. Pt is planned to have CT of abdomen, january D/C with IV antibiotics per Dr. newman. continue IV antibiotics 03/04 continue with antibiotics, follow up surgeon, pt may have CT of abdomen if continue symptomatic CT of abdomen reveals sigmoid diverticulitis with fistula track. Surgeon Dr. Gilmar Newman is admission physician to manage pt, will follow up continue Zosyn continue monitor pt with /Friday CT (2) HTN (hypertension) Impression: 03/04 stable stable, continue HCTZ vital monitor (3) Abdominal pain Impression: 03/05 as her baseline, continue pain control 03/04 pt continue abdominal pain, pt will have PICC line and resume her pain meds with pt's hx of chronic pain. pain control with hydromorphine and Morphine (4) Hypothyroidism Impression: 03/04, slight elevated TSH, check T3 level, follow up resume home meds check TSH (5) Depression Impression: stable, resume home meds
[2018-03-05] MEDS: SODIUM CHLORIDE FLUSH 0.9% 10 ML SYRINGE IVP PRN (14:37)
[2018-03-05] MEDS: HYDROmorphone 2 MG TABLET PO PRN (15:48)
--- NOTE | 2018-03-05 23:49 | PROVIDER PROGRESS NOTE ---
Subjective - General Admit Date: 03/01/18 - Review of Systems Pulmonary: positive: No symptoms Cardiovascular: positive: No symptoms Gastrointestinal: positive: Abdominal pain (She is having less abdominal pain and passing more flatus and stools), Diarrhea All Other Systems: positive: Reviewed and negative Objective - Patient Data Vital Signs: Vital Signs x48h Temp Pulse Resp BP BP Pulse Ox 03/05/18 19:39 36.6 C 78 18 115/82 H 99 03/05/18 15:53 37.1 C 62 20 163/94 H 99 Intake & Output: Intake and Output Totals x24h 03/03/18 03/04/18 03/05/18 23:59 23:59 23:59 Intake Total 2500 2291.000 3721 Output Total 1500 900 Balance 1000 9904.988 2518 - Lab Results Lab Results: 03/05/18 05:40 03/05/18 05:40 Other Lab Results: Lab Results x24hrs 03/05/18 03/05/18 03/05/18 Range/Units 05:40 05:40 05:40 WBC (4.8-10.8) x10^3/uL RBC (4.20-5.40) 10^6/uL Hgb (12.0-16.0) g/dL Hct (37.0-47.0) % MCV (81.0-99.0) fL MCH (27.0-31.0) pg MCHC (32.0-36.0) g/dL RDW (12.0-15.0) % Plt Count (130-450) 10^3/uL MPV (7.9-10.8) fL Neut # (Auto) (1.5-6.6) 10^3/uL Lymph # (Auto) (1.5-3.5) 10^3/uL [place] # (Auto) (0.0-1.0) 10^3/uL Eos # (Auto) (0.0-0.7) 10^3/uL Baso # (Auto) (0.0-0.1) 10^3/uL Absolute Nucleated RBC x10^3/uL Nucleated RBC % /100WBC Sodium 138 (135-145) mmol/L Potassium 3.7 (3.5-5.0) mmol/L Chloride 107 (101-111) mmol/L Carbon Dioxide 25 (21-32) mmol/L Anion Gap 6.0 (6-13) BUN 6 (6-20) mg/dL Creatinine 0.7 (0.4-1.0) mg/dL Estimated GFR (MDRD) 86 L (>89) Glucose 88 (70-100) mg/dL Calcium 9.0 (8.5-10.3) mg/dL Total Bilirubin 0.7 (0.2-1.0) mg/dL AST 35 (10-42) IU/L ALT 24 (10-60) IU/L Alkaline Phosphatase 58 (42-121) IU/L Total Protein 6.6 L (6.7-8.2) g/dL Albumin 3.3 (3.2-5.5) g/dL Globulin 3.3 (2.1-4.2) g/dL Albumin/Globulin Ratio 1.0 (1.0-2.2) Free T3 pg/mL 2.69 (2.5-3.9) pg/mL Total T3 0.94 (0.87-1.78) ng/mL 03/05/18 Range/Units 05:40 WBC 7.4 (4.8-10.8) x10^3/uL RBC 4.08 L (4.20-5.40) 10^6/uL Hgb 12.7 (12.0-16.0) g/dL Hct 37.5 (37.0-47.0) % MCV 91.9 (81.0-99.0) fL MCH 31.1 H (27.0-31.0) pg MCHC 33.8 (32.0-36.0) g/dL RDW 13.0 (12.0-15.0) % Plt Count 218 (130-450) 10^3/uL MPV 8.1 (7.9-10.8) fL Neut # (Auto) 3.0 (1.5-6.6) 10^3/uL Lymph # (Auto) 3.2 (1.5-3.5) 10^3/uL [facility] # (Auto) 0.7 (0.0-1.0) 10^3/uL Eos # (Auto) 0.5 (0.0-0.7) 10^3/uL Baso # (Auto) 0.1 (0.0-0.1) 10^3/uL Absolute Nucleated RBC 0.00 x10^3/uL Nucleated RBC % 0.0 /100WBC Sodium (135-145) mmol/L Potassium (3.5-5.0) mmol/L Chloride (101-111) mmol/L Carbon Dioxide (21-32) mmol/L Anion Gap (6-13) BUN (6-20) mg/dL Creatinine (0.4-1.0) mg/dL Estimated GFR (MDRD) (>89) Glucose (70-100) mg/dL Calcium (8.5-10.3) mg/dL Total Bilirubin (0.2-1.0) mg/dL AST (10-42) IU/L ALT (10-60) IU/L Alkaline Phosphatase (42-121) IU/L Total Protein (6.7-8.2) g/dL Albumin (3.2-5.5) g/dL Globulin (2.1-4.2) g/dL Albumin/Globulin Ratio (1.0-2.2) Free T3 pg/mL (2.5-3.9) pg/mL Total T3 (0.87-1.78) ng/mL - Current Medications Current Medications: Current Medications Generic Name Dose Route Start Last Admin Trade Name Freq PRN Reason Stop Dose Admin Cyclobenzaprine HCl 10 mg 03/03/18 21:00 03/05/18 15:49 Flexeril PO 10 mg QPM PRN Administration Spasms Enoxaparin Sodium 40 mg 03/01/18 21:00 03/05/18 08:22 Lovenox SUBQ 40 mg DAILY [facility] Administration Hydrochlorothiazide 25 mg 03/04/18 09:00 03/05/18 08:22 Hydrodiuril PO 25 mg DAILY [facility] Administration Hydromorphone HCl 2 mg 03/01/18 19:52 03/05/18 19:56 Dilaudid (Vial) IVP 2 mg Q2H PRN Administration Abdominal Pain Hydromorphone HCl 4 mg 03/04/18 01:56 03/05/18 15:48 Dilaudid PO 4 mg Q2H PRN Administration Severe Pain Piperacillin Sod/Tazobactam 100 mls @ 200 mls/hr 03/02/18 02:00 03/05/18 20: 40 Sod 3.375 gm/ Sodium Chloride IV Infused Q6H [facility] Infusion Famotidine 50 mls @ 100 mls/hr 03/02/18 21:00 03/05/18 20:40 Pepcid 20 Mg/50 Ml IV 100 mls/hr BID [facility] Administration Gentamicin Sulfate 440 mg/ 111 mls @ 100 mls/hr 03/04/18 11:00 03/05/18 14:15 Sodium Chloride IV Infused Q24H [facility] Infusion Dextrose/Sodium Chloride 1,000 mls @ 83.3 mls/hr 03/05/18 12:04 03/05/18 14: 15 D5.45ns IV 83.3 mls/hr .Q12H1M [facility] Administration Lisinopril 20 mg 03/01/18 21:00 03/05/18 08:22 Zestril PO 20 mg DAILY [facility] Administration Morphine Sulfate 10 mg 03/01/18 21:00 03/05/18 21:05 Morphine IVP 10 mg Q4H [facility] Administration Morphine Sulfate 10 mg 03/04/18 01:55 03/04/18 06:46 Roxanol PO 10 mg Q2HR PRN Administration PAIN Ondansetron HCl 4 mg 03/02/18 00:17 03/05/18 01:42 Zofran Odt TL 4 mg Q4HR PRN Administration Nausea / Vomiting Sodium Chloride 10 ml 03/02/18 01:00 03/05/18 17:05 Normal Saline Flush 0.9% IVP Not Given 0100,0900,1700 [facility] Sodium Chloride 10 ml 03/01/18 19:46 03/05/18 14:37 Normal Saline Flush 0.9% IVP 10 ml PRN PRN Administration NEEDED PER PROVIDER ORDERS Thyroid 120 mg 03/04/18 07:00 03/05/18 06:37 [place] Thyroid PO 120 mg QDAC [facility] Administration Trazodone HCl 200 mg 03/03/18 21:00 03/04/18 22:41 Desyrel PO 200 mg HS PRN Administration Insomnia Venlafaxine HCl 150 mg 03/03/18 12:30 03/05/18 08:22 Effexor Er PO 150 mg DAILY [facility] Administration Venlafaxine HCl 75 mg 03/03/18 21:00 03/05/18 20:41 Effexor Er PO 75 mg QPM [facility] Administration - Physical Exam Respiratory: positive: No respiratory distress Cardiovascular: positive: Regular rate & rhythm Abdomen: positive: Other (mild tenderness in llq) Impression/Plan - Problem List Problem List: Diverticultitis with contained perforation. Patients abdominal symptoms continue to improve on IV zosyn/gentamicin. More flatus, less abdominal distension, and more stool. -continue iv antibiotics -low residual diets -Home iv antibiotics setup
[2018-03-06] MEDS: PIPERACILLIN/TAZOBACTAM 3.375 GM in SODIUM CHLORIDE 0.9% MINIBAG 100 ML IV SCH ×4 (01:30→20:05)
[2018-03-06] MEDS: DEXTROSE 5%-0.45% NACL 1,000 ML IV SCH ×3 (01:30→18:12)
[2018-03-06] MEDS: MORPHINE 10 MG/ML VIAL IVP SCH ×6 (01:31→21:01)
[2018-03-06] MEDS: LORazepam 0.5 MG TABLET PO PRN ×2 (01:32→09:11)
[2018-03-06] MEDS: SODIUM CHLORIDE FLUSH 0.9% 10 ML SYRINGE IVP SCH ×3 (01:32→17:00)
[2018-03-06] MEDS: HYDROmorphone 2 MG TABLET PO PRN ×2 (02:59→06:29)
[2018-03-06] MEDS ORDERED: IOPAMIDOL-300 50 ML VIAL ONE (04:31)
[2018-03-06] MEDS ORDERED: IOPAMIDOL-300 50 ML VIAL PO ONE (04:59)
[2018-03-06] MEDS: THYROID 60 MG TABLET PO SCH (06:29)
[2018-03-06] MEDS: BACLOFEN 10 MG TABLET PO PRN (06:29)
--- NOTE | 2018-03-06 06:44 | CT Report ---
Procedure Date: 03/06/2018 Accession Number: [id number] / [id number] Procedure: CT - Abdomen/Pelvis W/O CPT Code: FULL RESULT: EXAM: CT ABDOMEN AND PELVIS EXAM DATE: 03/06/2018 06:16 AM. CLINICAL HISTORY: FOllowup on previous CT. 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 COMPARISONS: ABDOMEN/PELVIS W/ 02/25/2018 GENERAL 03/04/2018 ABDOMEN/PELVIS W/ 03/01/2018. TECHNIQUE: Routine helical CT imaging was performed through the abdomen and pelvis. IV contrast: No per physician order. Interpreting radiologist not involved with protocoling the study.. Enteric contrast: Yes. Reconstructions: Coronal and sagittal. In accordance with CT protocol optimization, one or more of the following dose reduction techniques were utilized for this exam: automated exposure control, adjustment of mA and/or KV based on patient size, or use of iterative reconstructive technique. FINDINGS: Lung Bases: Unremarkable. Noncontrast Abdominal Organs: Please see recent contrast enhanced study for better evaluation. No gross new abnormality seen. Peritoneal Cavity/Bowel: Sigmoid colon small fluid and gas containing fistula noted without change. For example, please see small fistula on top of the sigmoid colon on coronal images 35 through 38. Small bubble of extraluminal gas again noted in the left adnexa, likely part of the fistula. No drainable abscess. No bowel obstruction. Noncontrast Pelvic: Please see above for left adnexa. No suspicious adnexal masses. Urinary bladder unremarkable without evidence of colovesicular fistula. Vasculature: No aneurysms or other significant abnormality. Bones: Extensive previous spinal surgery. Other: None. 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 No abscess. [facility]
[2018-03-06] MEDS: SODIUM CHLORIDE FLUSH 0.9% 10 ML SYRINGE IVP PRN ×2 (07:09→23:05)
[2018-03-06 07:10] LABS: BASOPHILS # (AUTO) 0.1 10^3/uL (0.0-0.1); BASOPHILS % (AUTO) 1.4 %; EOSINOPHILS # (AUTO) 0.5 10^3/uL (0.0-0.7); EOSINOPHILS % (AUTO) 7.5 %; HGB - HEMOGLOBIN 13.2 g/dL (12.0-16.0); LYMPHOCYTES # (AUTO) 2.5 10^3/uL (1.5-3.5); LYMPHOCYTES % (AUTO) 37.5 %; MEAN CORPUSCULAR HEMOGLOBIN 31.2 pg (27.0-31.0); MEAN CORPUSCULAR HGB CONC 34.1 g/dL (32.0-36.0); MEAN CORPUSCULAR VOLUME 91.5 fL (81.0-99.0); MEAN PLATELET VOLUME 7.8 fL (7.9-10.8); MONOCYTES # (AUTO) 0.7 10^3/uL (0.0-1.0); MONOCYTES % (AUTO) 10.8 %; NEUTROPHILS # (AUTO) 2.9 10^3/uL (1.5-6.6); NEUTROPHILS % (AUTO) 42.8 %; PLT - PLATELET COUNT 228 10^3/uL (130-450); RED BLOOD COUNT 4.24 10^6/uL (4.20-5.40); RED CELL DISTRIBUTION WIDTH 12.8 % (12.0-15.0); WHITE BLOOD COUNT 6.8 x10^3/uL (4.8-10.8)
[2018-03-06 07:21] LABS: ALBUMIN 3.7 g/dL (3.2-5.5); ALBUMIN/GLOBULIN RATIO 1.1 (1.0-2.2); BILIRUBIN,TOTAL 0.7 mg/dL (0.2-1.0); CALCIUM 9.5 mg/dL (8.5-10.3); CREATININE 0.6 mg/dL (0.4-1.0); TOTAL PROTEIN 7.2 g/dL (6.7-8.2)
[2018-03-06] MEDS ORDERED: POTASSIUM CHLORIDE 20 MEQ TABLET PO ONE (07:44)
[2018-03-06] MEDS: ONDANSETRON ODT 4 MG TABLET TL PRN (09:10)
[2018-03-06] MEDS: ENOXAPARIN 40 MG/0.4 ML SYRINGE SUBQ SCH (09:11)
[2018-03-06] MEDS: hydroCHLOROthiazide 25 MG TABLET PO SCH (09:11)
[2018-03-06] MEDS: FAMOTIDINE 20 MG/50 ML 50 ML IV SCH ×2 (09:11→21:01)
[2018-03-06] MEDS: VENLAFAXINE ER 75 MG CAPSULE PO SCH ×2 (09:11→21:01)
[2018-03-06] MEDS: LISINOPRIL 20 MG TABLET PO SCH (09:16)
[2018-03-06] MEDS: GENTAMICIN 440 MG in SODIUM CHLORIDE 0.9% 100ML 100 ML IV SCH (11:56)
--- NOTE | 2018-03-06 17:28 | PROVIDER PROGRESS NOTE ---
Subjective - Prog Note Date Prog Note Date: 03/06/18 - Subjective Pt reports feeling: No change Subjective: pt still complain of abdominal pain. No fever, chill, CP, SOB. pt walk in the medical floor hallway. Current Medications - Current Medications Current Medications: Active Medications Baclofen (Lioresal) 20 mg PO TID PRN PRN Reason: Spasms Last Admin: 03/06/18 06:29 Dose: 20 mg Cyclobenzaprine HCl (Flexeril) 10 mg PO QPM PRN PRN Reason: Spasms Last Admin: 03/05/18 15:49 Dose: 10 mg Enoxaparin Sodium (Lovenox) 40 mg SUBQ DAILY [facility] Last Admin: 03/06/18 09:11 Dose: 40 mg Hydrochlorothiazide (Hydrodiuril) 25 mg PO DAILY [facility] Last Admin: 03/06/18 09:11 Dose: 25 mg Hydromorphone HCl (Dilaudid (Vial)) 1 mg IVP Q2H PRN PRN Reason: Abdominal Pain Hydromorphone HCl (Dilaudid (Vial)) 2 mg IVP Q2H PRN PRN Reason: Abdominal Pain Last Admin: 03/07/18 02:16 Dose: 2 mg Hydromorphone HCl (Dilaudid) 4 mg PO Q2H PRN PRN Reason: Severe Pain Last Admin: 03/06/18 06:29 Dose: 4 mg Piperacillin Sod/Tazobactam (Sod 3.375 gm/ Sodium Chloride) 100 mls @ 200 mls/ hr IV Q6H [facility] Last Infusion: 03/07/18 02:49 Dose: Infused Famotidine (Pepcid 20 Mg/50 Ml) 50 mls @ 100 mls/hr IV BID [facility] Last Infusion: 03/06/18 21:41 Dose: Infused Gentamicin Sulfate 440 mg/ (Sodium Chloride) 111 mls @ 100 mls/hr IV Q24H [facility] Last Infusion: 03/06/18 14:15 Dose: Infused Multivitamins 10 ml/ Amino Ac/ (Electrol/Dextrose/Calcium) 2,010 mls @ 83 mls/ hr IV Q24H [facility] PRN Reason: Protocol Last Infusion: 03/06/18 22:41 Dose: 83 mls/hr Fat Emulsion Intravenous (Intralipid 20%) 250 mls @ 21 mls/hr IV Q24H [facility] Last Infusion: 03/06/18 22:41 Dose: 21 mls/hr Chromium/Copper/Manganese/Seleni/Zn 1 ml/ Sodium Chloride 51 mls @ 4.25 mls/hr IV Q24H [facility] Last Infusion: 03/06/18 22:41 Dose: 4.25 mls/hr Dextrose/Sodium Chloride (D5.45ns) 1,000 mls @ 30 mls/hr IV .[id number] [facility] PRN Reason: TKO Lisinopril (Zestril) 20 mg PO DAILY [facility] Last Admin: 03/06/18 09:16 Dose: 20 mg Lorazepam (Ativan) 1 mg PO Q6H PRN PRN Reason: Anxiety Last Admin: 03/06/18 09:11 Dose: 1 mg Morphine Sulfate (Morphine) 10 mg IVP Q4H [facility] Last Admin: 03/07/18 04:57 Dose: 10 mg Morphine Sulfate (Roxanol) 10 mg PO Q2HR PRN PRN Reason: PAIN Last Admin: 03/04/18 06:46 Dose: 10 mg Ondansetron HCl (Zofran Odt) 4 mg TL Q4HR PRN PRN Reason: Nausea / Vomiting Last Admin: 03/07/18 04:57 Dose: 4 mg Sodium Chloride (Normal Saline Flush 0.9%) 10 ml IVP 0100,0900,1700 [facility] Last Admin: 03/07/18 00:28 Dose: Not Given Sodium Chloride (Normal Saline Flush 0.9%) 10 ml IVP PRN PRN PRN Reason: NEEDED PER PROVIDER ORDERS Last Admin: 03/07/18 06:05 Dose: 10 ml Sodium Chloride (Normal Saline Flush 0.9%) 20 ml IVP PRN PRN PRN Reason: After Blood Draw Last Admin: 03/07/18 06:05 Dose: 20 ml Thyroid (Hasty Thyroid) 120 mg PO QDAC [facility] Last Admin: 03/07/18 06:05 Dose: 120 mg Trazodone HCl (Desyrel) 200 mg PO HS PRN PRN Reason: Insomnia Last Admin: 03/07/18 02:16 Dose: 200 mg Venlafaxine HCl (Effexor Er) 150 mg PO DAILY [facility] Last Admin: 03/06/18 09:11 Dose: 150 mg Venlafaxine HCl (Effexor Er) 75 mg PO QPM [facility] Last Admin: 03/06/18 21:01 Dose: 75 mg Venlafaxine HCl [Venlafaxine HCl ER] 75 mg PO QPM 06/17/17 hydroCHLOROthiazide [Hydrochlorothiazide] 25 mg PO DAILY 08/10/17 Albuterol Sulfate [Proair Respiclick] 2 puffs INH Q4H PRN 03/02/18 Baclofen [Lioresal] 20 mg PO TID PRN 03/02/18 Cyclobenzaprine [Flexeril] 10 mg PO QPM PRN 03/02/18 Morphine Sulfate [Morphine Sulfate ER] 30 mg PO QPM 03/02/18 Ondansetron HCl [Zofran] 4 - 8 mg PO DAILY PRN 03/02/18 Oxycodone HCl [Roxicodone] 15 mg PO Q4H PRN MDD 5 tabs 03/02/18 Thyroid,Pork [Hasty Thyroid] 120 mg PO QDAC 03/02/18 Venlafaxine HCl [Venlafaxine HCl ER] 150 mg PO DAILY 03/02/18 traZODone [Desyrel] 200 mg PO HS PRN 03/02/18 Objective - Vital Signs/Intake & Output Reviewed Vital Signs: Yes Vital Signs: Vital Signs x48h Temp Pulse Resp BP Pulse Ox 03/06/18 15:39 36.7 C 71 16 150/93 H 96 Intake & Output: Intake & Output 03/03/18 03/04/18 03/05/18 03/06/18 23:59 23:59 23:59 23:59 Intake Total 2500 2291.000 3935.583 3023.542 Output Total 1500 900 Balance 1000 1974.666 0378.583 3023.542 - Objective General Appearance: positive: No acute distress, Alert. negative: Lethargic Eyes Bilateral: positive: Normal inspection, PERRL, No lid inflammation, Conjunctivae nml ENT: positive: ENT inspection nml, Pharynx nml, No signs of dehydration. negative: Purulent nasal drainage, Pharyngeal erythema, Oral lesions Neck: positive: Nml inspection, Thyroid nml, No JVD, Trachea midline. negative : Thyromegaly, Lymphadenopathy (R), Lymphadenopathy (L), Stiff neck, Carotid bruit, Swelling/bruising, Tracheal deviation Respiratory: positive: Chest non-tender, No respiratory distress, Breath sounds nml. negative: Wheezes, Rales, Rhonchi Cardiovascular: positive: Regular rate & rhythm, No murmur, No gallop. negative : Irregularly irregular, Extrasystoles, Tachycardia, Bradycardia, JVD present, Systolic murmur, Diastolic murmur Peripheral Pulses: 2+ Radial (R), 2+ Radial (L), 2+ Dorsalis pedis (R), 2+ Dorsalis pedis (L) Abdomen: positive: No organomegaly, Nml bowel sounds, No distention, Tenderness. negative: Guarding, Rebound Back: positive: Nml inspection. negative: CVA tenderness (R), CVA tenderness (L ) Skin: positive: Color nml, No rash, Warm, Dry. negative: Cyanosis, Diaphoresis , Pallor Extremities: positive: Non-tender, Full ROM, Nml appearance. negative: Calf tenderness, Joint swelling, Zac's sign/cords Neurologic/Psychiatric: positive: Oriented x3, Motor nml, Sensation nml, Mood/ affect nml. negative: Weakness, Sensory loss, Facial droop, Slurred/abnml speech, Depressed mood/affect - Lab Results Fish Bones: 03/07/18 06:17 03/07/18 06:17 Other Labs: Lab Results x24hrs 03/06/18 03/06/18 Range/Units 07:00 07:00 WBC 6.8 (4.8-10.8) x10^3/uL RBC 4.24 (4.20-5.40) 10^6/uL Hgb 13.2 (12.0-16.0) g/dL Hct 38.8 (37.0-47.0) % MCV 91.5 (81.0-99.0) fL MCH 31.2 H (27.0-31.0) pg MCHC 34.1 (32.0-36.0) g/dL RDW 12.8 (12.0-15.0) % Plt Count 228 (130-450) 10^3/uL MPV 7.8 L (7.9-10.8) fL Neut # (Auto) 2.9 (1.5-6.6) 10^3/uL Lymph # (Auto) 2.5 (1.5-3.5) 10^3/uL Patrick # (Auto) 0.7 (0.0-1.0) 10^3/uL Eos # (Auto) 0.5 (0.0-0.7) 10^3/uL Baso # (Auto) 0.1 (0.0-0.1) 10^3/uL Absolute Nucleated RBC 0.00 x10^3/uL Nucleated RBC % 0.0 /100WBC Sodium 135 (135-145) mmol/L Potassium 3.4 L (3.5-5.0) mmol/L Chloride 101 (101-111) mmol/L Carbon Dioxide 28 (21-32) mmol/L Anion Gap 6.0 (6-13) BUN 6 (6-20) mg/dL Creatinine 0.6 (0.4-1.0) mg/dL Estimated GFR (MDRD) 103 (>89) Glucose 88 (70-100) mg/dL Calcium 9.5 (8.5-10.3) mg/dL Total Bilirubin 0.7 (0.2-1.0) mg/dL AST 41 (10-42) IU/L ALT 38 (10-60) IU/L Alkaline Phosphatase 65 (42-121) IU/L Total Protein 7.2 (6.7-8.2) g/dL Albumin 3.7 (3.2-5.5) g/dL Globulin 3.5 (2.1-4.2) g/dL Albumin/Globulin Ratio 1.1 (1.0-2.2) ABX Reporting Has patient been on IV antibiotics over the past 48 hours?: Yes Assessment/Plan - Problem List (1) Diverticulitis Impression: diverticulitis with fistula Impression: 03/06/ CT of abdomen reveals stable fistula. continue antibiotics, pain control. follow with surgeon. 03/05 pt is stable as her baselin. Pt is planned to have CT of abdomen, january D/C with IV antibiotics per Dr. newman. continue IV antibiotics 03/04 continue with antibiotics, follow up surgeon, pt may have CT of abdomen if continue symptomatic CT of abdomen reveals sigmoid diverticulitis with fistula track. Surgeon Dr. Gilmar Newman is admission physician to manage pt, will follow up continue Zosyn continue monitor pt with /Friday CT (2) HTN (hypertension) Impression: 03/04 stable stable, continue HCTZ vital monitor (3) Abdominal pain Impression: 03/06, pt still complain of abdominal pain, pt with hx of chronic pain. continue pain control treat with antibiotics follow up surgeon 03/05 as her baseline, continue pain control 03/04 pt continue abdominal pain, pt will have PICC line and resume her pain meds with pt's hx of chronic pain. pain control with hydromorphine and Morphine (4) Hypothyroidism Impression: normal T3 03/04, slight elevated TSH, check T3 level, follow up resume home meds check TSH (5) Depression Impression: stable, resume home meds
--- NOTE | 2018-03-06 18:02 | Discharge Plan ---
"Discharge Plan for SNF / [facility] - DC Plan and Transition Orders Disposition: 03 SNF DC/Xfer Condition: Serious SNF Transition Orders: Admit to: [[facility]] under the care of [Doctor Kathleen Asher] Discharge Diagnosis: [diverticulitis containing with perforation, chronic pain, HTN, hypothyroidism, depression] Medicare Certification: I certify that Post Hospital detention care is medically necessary on a continuing basis for any of the conditions for which she/he is receiving care during hospitalization. Notify PCP of admission and forward orders to primary provider for signature. Weight on admission and [78.5 kg]. Call PCP immediately if weight increases by [4] pounds or if patient develops dyspnea, chest pain/tightness or edema. House Bowel Program: [Yes] If no BM after 2 days, nurse may give M.O.M. 30ml PO PRN and /or ducolax Supp 1 MT and /or SANDRINE 250mg P.O., and/or senna 1-2 tabs PO. On day 3 nurse may give repeat above order until residents constipation is resolved. Immunizations: Annual Influenza Vaccine: [Yes]. (between May 09 and December 06.) Unless allergy or already given Two-Step PPD: [Yes] per [facility] [id number] or appropriate documentation of approved exceptions Treatments & Other Orders: [may follow up Dr. Kathleen Asher at arrival of [facility], pharmacy to follow TPN, and antibiotics including gentamycin.] Oxygen Orders: [n] Lab Tests or X-Rays Orders: [CT of abdomen and pelvis with oral and no IV contrast on 03/23/18] Orthopedic Orders: [n]. Medications: PLEASE REFER TO THE DISCHARGE MEDICATION LIST. Insulin Orders? [No] Diagnosis: Diabetes Initiate hypo and hyperglycemia protocols for BG <70 and BG >375. May check BG prn for signs/symptoms of dysglycemia. Frequency of BG checks: [AC/Meal/HS] Basal Insulin: [] Lantus 100 units / ml inject subq as follows: [] [] Other: [] Correction Insulin: - Select the type of insulin below [Choose: Novolog/Humalog]100 units /ml insulin inject subq per orders indicate below [] LOW DOSE [] MODERATE DOSE [] MODERATE/HIGH DOSE [] HIGH DOSE GB UNITS GB UNITS GB UNITS GB UNITS 61-140 0 UNITS 61-140 0 UNITS 61-140 0 UNITS 61-140 0 UNITS 141-175 1 UNITS 141-175 1 UNITS 141-175 2 UNITS 141-175 3 UNITS 176-225 2 UNITS 176-225 3 UNITS 176-225 4 UNITS 176-225 5 UNITS 226-275 3 UNITS 226-275 5 UNITS 226-275 6 UNITS 226-275 7 UNITS 276-325 4 UNITS 276-325 7 UNITS 276-325 8 UNITS 276-325 9 UNITS 326-375 5 UNITS 326-375 9 UNITS 326-375 10 UNITS 326-375 11 UNITS >375 CONTACT MD >375 CONTACT MD >375 CONTACT MD >375 CONTACT MD Custom Dosing: [Choose: None/Novolog/Humalog] 100 units/ml Insulin inject subq as follows: GB Units 61-140 [] Units 141-175 [] Units 176-225 [] Units 226-275 [] Units 276-325 []Units 326-375 [] Units >375 Contact MD Allergies and Adverse Reactions: Allergies Allergy/AdvReac Type Severity Reaction Status Date / Time adhesive tape Allergy Rash Verified 03/01/18 16:30 hydrocodone bitartrate * AdvReac Itching Verified 03/01/18 16:30 [From Vicodin] - Medications New Prescriptions: Enoxaparin [Lovenox] 40 mg SUBQ DAILY #21 syringe Hydromorphone HCl/0.9% NaCl/Pf [Hydromorphone 2 mg/ml-Ns Syrng] 2 mg IV Q2H PRN #40 syringe PRN Reason: Abdominal Pain [id number],Iso [Zosyn 3.375 gm/50 ml Galaxy] 3.375 gm IV Q6H # 60 froz.piggy TPN (Clinimix 5/15) [Clinimix 5%-15% Solution] 2,000 ml IV TPN/PPN #19 bag - Diet Type: clear liquid diet - Therapies | Activity Rehabilitation Potential: Maximize functional status Activity: Activity as Tolerated Weight Bearing: Full Weight Assistance Devices: Walker Additional Instructions: call Dr. Gilmar Newman office with CT scan result, phone: [phone]"
[2018-03-06] MEDS: HYDROmorphone 2 MG/ML VIAL IVP PRN ×2 (18:51→23:05)
[2018-03-06] MEDS: TPN (CLINIMIX E 5/15) 2,000 ML with MULTIVITAMIN 10 ML IV SCH ×2 (19:30)
[2018-03-06] MEDS: TRACE ELEMENTS V CONC 1 ML in SODIUM CHLORIDE 0.9% 50 ML IV SCH (19:30)
[2018-03-06] MEDS: FAT EMULSION 20% 250 ML IV SCH (19:30)
[2018-03-07] MEDS: SODIUM CHLORIDE FLUSH 0.9% 10 ML SYRINGE IVP SCH ×3 (00:28→17:01)
[2018-03-07] MEDS: MORPHINE 10 MG/ML VIAL IVP SCH ×6 (00:44→21:05)
[2018-03-07] MEDS: PIPERACILLIN/TAZOBACTAM 3.375 GM in SODIUM CHLORIDE 0.9% MINIBAG 100 ML IV SCH ×4 (02:15→20:03)
[2018-03-07] MEDS: HYDROmorphone 2 MG/ML VIAL IVP PRN (02:16)
[2018-03-07] MEDS: traZODone 50 MG TABLET PO PRN (02:16)
[2018-03-07] MEDS: ONDANSETRON ODT 4 MG TABLET TL PRN ×2 (04:57→19:36)
[2018-03-07] MEDS: THYROID 60 MG TABLET PO SCH (06:05)
[2018-03-07] MEDS: SODIUM CHLORIDE FLUSH 0.9% 10 ML SYRINGE IVP PRN ×3 (06:05→21:05)
[2018-03-07 06:58] LABS: BASOPHILS # (AUTO) 0.1 10^3/uL (0.0-0.1); BASOPHILS % (AUTO) 1.5 %; EOSINOPHILS # (AUTO) 0.6 10^3/uL (0.0-0.7); EOSINOPHILS % (AUTO) 8.2 %; HGB - HEMOGLOBIN 13.6 g/dL (12.0-16.0); LYMPHOCYTES # (AUTO) 2.3 10^3/uL (1.5-3.5); MEAN CORPUSCULAR HEMOGLOBIN 30.9 pg (27.0-31.0); MEAN CORPUSCULAR HGB CONC 33.6 g/dL (32.0-36.0); MEAN CORPUSCULAR VOLUME 91.8 fL (81.0-99.0); MEAN PLATELET VOLUME 8.2 fL (7.9-10.8); MONOCYTES # (AUTO) 0.7 10^3/uL (0.0-1.0); MONOCYTES % (AUTO) 10.4 %; NEUTROPHILS # (AUTO) 3.2 10^3/uL (1.5-6.6); NEUTROPHILS % (AUTO) 46.9 %; PLT - PLATELET COUNT 238 10^3/uL (130-450); RED CELL DISTRIBUTION WIDTH 12.9 % (12.0-15.0); WHITE BLOOD COUNT 6.9 x10^3/uL (4.8-10.8)
[2018-03-07 07:07] LABS: INR 1.1 (0.8-1.2); PT - PROTHROMBIN TIME 12.4 secs (9.9-12.6)
[2018-03-07 07:12] LABS: ALBUMIN 3.7 g/dL (3.2-5.5); ALBUMIN/GLOBULIN RATIO 1.1 (1.0-2.2); BILIRUBIN,TOTAL 0.7 mg/dL (0.2-1.0); CALCIUM 9.4 mg/dL (8.5-10.3); CREATININE 0.7 mg/dL (0.4-1.0); MAGNESIUM 1.9 mg/dL (1.7-2.8); PHOSPHORUS 4.4 mg/dL (2.5-4.6); TOTAL PROTEIN 7.2 g/dL (6.7-8.2)
--- NOTE | 2018-03-07 07:40 | PROVIDER PROGRESS NOTE ---
Subjective - General Admit Date: 03/01/18 - Review of Systems Pulmonary: positive: No symptoms Cardiovascular: positive: No symptoms Gastrointestinal: positive: Abdominal pain (She is having less abdominal pain and passing more flatus and stools), Diarrhea All Other Systems: positive: Reviewed and negative Objective - Patient Data Vital Signs: Vital Signs x48h Temp Pulse Resp BP Pulse Ox 03/07/18 00:28 36.8 C 60 18 145/81 H 98 Weight: Weight 03/05/18 03/06/18 03/07/18 23:59 23:59 23:59 Weight (kg) 78.5 kg 78.5 kg Intake & Output: Intake and Output Totals x24h 03/05/18 03/06/18 03/07/18 23:59 23:59 23:59 Intake Total 3935.583 5416.820 350 Balance 3935.583 5416.820 350 - Lab Results Lab Results: 03/06/18 07:00 03/07/18 06:17 Other Lab Results: Lab Results x24hrs 03/07/18 03/07/18 03/07/18 Range/Units 06:17 06:17 05:23 PT 12.4 (9.9-12.6) secs INR 1.1 (0.8-1.2) Sodium 138 (135-145) mmol/L Potassium 3.2 L (3.5-5.0) mmol/L Chloride 102 (101-111) mmol/L Carbon Dioxide 27 (21-32) mmol/L Anion Gap 9.0 (6-13) BUN 9 (6-20) mg/dL Creatinine 0.7 (0.4-1.0) mg/dL Estimated GFR (MDRD) 86 L (>89) Glucose 98 (70-100) mg/dL POC Whole Bld Glucose 88 (70 - 100) mg/dL Calcium 9.4 (8.5-10.3) mg/dL Phosphorus 4.4 (2.5-4.6) mg/dL Magnesium 1.9 (1.7-2.8) mg/dL Total Bilirubin 0.7 (0.2-1.0) mg/dL AST 34 (10-42) IU/L ALT 40 (10-60) IU/L Alkaline Phosphatase 62 (42-121) IU/L Total Protein 7.2 (6.7-8.2) g/dL Albumin 3.7 (3.2-5.5) g/dL Globulin 3.5 (2.1-4.2) g/dL Albumin/Globulin Ratio 1.1 (1.0-2.2) Prealbumin 17 L (18-45) mg/dL Triglycerides 159 H ( - 149) mg/dL 03/07/18 Range/Units 00:15 PT (9.9-12.6) secs INR (0.8-1.2) Sodium (135-145) mmol/L Potassium (3.5-5.0) mmol/L Chloride (101-111) mmol/L Carbon Dioxide (21-32) mmol/L Anion Gap (6-13) BUN (6-20) mg/dL Creatinine (0.4-1.0) mg/dL Estimated GFR (MDRD) (>89) Glucose (70-100) mg/dL POC Whole Bld Glucose 119 H (70 - 100) mg/dL Calcium (8.5-10.3) mg/dL Phosphorus (2.5-4.6) mg/dL Magnesium (1.7-2.8) mg/dL Total Bilirubin (0.2-1.0) mg/dL AST (10-42) IU/L ALT (10-60) IU/L Alkaline Phosphatase (42-121) IU/L Total Protein (6.7-8.2) g/dL Albumin (3.2-5.5) g/dL Globulin (2.1-4.2) g/dL Albumin/Globulin Ratio (1.0-2.2) Prealbumin (18-45) mg/dL Triglycerides ( - 149) mg/dL - Current Medications Current Medications: Current Medications Generic Name Dose Route Start Last Admin Trade Name Freq PRN Reason Stop Dose Admin Baclofen 20 mg 03/03/18 11:19 03/06/18 06:29 Lioresal PO 20 mg TID PRN Administration Spasms Cyclobenzaprine HCl 10 mg 03/03/18 21:00 03/05/18 15:49 Flexeril PO 10 mg QPM PRN Administration Spasms Enoxaparin Sodium 40 mg 03/01/18 21:00 03/06/18 09:11 Lovenox SUBQ 40 mg DAILY [facility] Administration Hydrochlorothiazide 25 mg 03/04/18 09:00 03/06/18 09:11 Hydrodiuril PO 25 mg DAILY [facility] Administration Hydromorphone HCl 2 mg 03/01/18 19:52 03/07/18 02:16 Dilaudid (Vial) IVP 2 mg Q2H PRN Administration Abdominal Pain Hydromorphone HCl 4 mg 03/04/18 01:56 03/06/18 06:29 Dilaudid PO 4 mg Q2H PRN Administration Severe Pain Piperacillin Sod/Tazobactam 100 mls @ 200 mls/hr 03/02/18 02:00 03/07/18 02: 49 Sod 3.375 gm/ Sodium Chloride IV Infused Q6H [facility] Infusion Famotidine 50 mls @ 100 mls/hr 03/02/18 21:00 03/06/18 21:41 Pepcid 20 Mg/50 Ml IV Infused BID [facility] In[facility] Gentamicin Sulfate 440 mg/ 111 mls @ 100 mls/hr 03/04/18 11:00 03/06/18 14:15 Sodium Chloride IV Infused Q24H [facility] Infusion Multivitamins 10 ml/ Amino Ac/ 2,010 mls @ 83 mls/hr 03/06/18 19:00 03/06/18 22:41 Electrol/Dextrose/Calcium IV 83 mls/hr Q24H [facility] Infusion Protocol Fat Emulsion Intravenous 250 mls @ 21 mls/hr 03/06/18 19:00 03/06/18 22:41 Intralipid 20% IV 21 mls/hr Q24H [facility] Infusion Chromium/Copper/Manganese/ 51 mls @ 4.25 mls/hr 03/06/18 19:00 03/06/18 22:41 Seleni/Zn 1 ml/ Sodium IV 4.25 mls/hr Chloride Q24H [facility] Infusion Lisinopril 20 mg 03/01/18 21:00 03/06/18 09:16 Zestril PO 20 mg DAILY [facility] Administration Lorazepam 1 mg 03/06/18 01:08 03/06/18 09:11 Ativan PO 1 mg Q6H PRN Administration Anxiety Morphine Sulfate 10 mg 03/01/18 21:00 03/07/18 04:57 Morphine IVP 10 mg Q4H [facility] Administration Morphine Sulfate 10 mg 03/04/18 01:55 03/04/18 06:46 Roxanol PO 10 mg Q2HR PRN Administration PAIN Ondansetron HCl 4 mg 03/02/18 00:17 03/07/18 04:57 Zofran Odt TL 4 mg Q4HR PRN Administration Nausea / Vomiting Sodium Chloride 10 ml 03/02/18 01:00 03/07/18 00:28 Normal Saline Flush 0.9% IVP Not Given 0100,0900,1700 [facility] Sodium Chloride 10 ml 03/01/18 19:46 03/07/18 06:05 Normal Saline Flush 0.9% IVP 10 ml PRN PRN Administration NEEDED PER PROVIDER ORDERS Sodium Chloride 20 ml 03/05/18 17:26 03/07/18 06:05 Normal Saline Flush 0.9% IVP 20 ml PRN PRN Administration After Blood Draw Thyroid 120 mg 03/04/18 07:00 03/07/18 06:05 [place] Thyroid PO 120 mg QDAC [facility] Administration Trazodone HCl 200 mg 03/03/18 21:00 03/07/18 02:16 Desyrel PO 200 mg HS PRN Administration Insomnia Venlafaxine HCl 150 mg 03/03/18 12:30 03/06/18 09:11 Effexor Er PO 150 mg DAILY [facility] Administration Venlafaxine HCl 75 mg 03/03/18 21:00 03/06/18 21:01 Effexor Er PO 75 mg QPM [facility] Administration - Physical Exam Abdomen: positive: Other (mild tenderness in llq) Impression/Plan - Problem List Problem List: Diverticultitis with contained perforation. She is still having pain on the left side mainly in the llq but it improving. She continues to have the appearance of improving but due to her history of narcotic use for back pain still requiring pain medication. Bowel function is improving. F/u ct scan of the abdomen/pelvis is unchanged having a small mesenteric contained perforation. I discussed urgent surgery vs iv antibiotics/tpn/bowel rest with the pros/cons of each. She would like to wait on surgery at this time and continue on iv antibiotics. Will set up snf to do this with repeat ct scan of abdomen in 2 weeks.
[2018-03-07 07:59] LABS: PLATELET MORPHOLOGY NORMAL APPEARANCE (NORMAL); RBC MORPHOLOGY (MULTIPLE) NORMAL APPEARANCE (NORMAL)
[2018-03-07] MEDS: ENOXAPARIN 40 MG/0.4 ML SYRINGE SUBQ SCH (09:14)
[2018-03-07] MEDS: VENLAFAXINE ER 75 MG CAPSULE PO SCH ×2 (09:16→21:05)
[2018-03-07] MEDS: LISINOPRIL 20 MG TABLET PO SCH (09:16)
[2018-03-07] MEDS: hydroCHLOROthiazide 25 MG TABLET PO SCH (09:16)
[2018-03-07] MEDS: FAMOTIDINE 20 MG/50 ML 50 ML IV SCH ×2 (09:17→21:05)
[2018-03-07] MEDS: HYDROmorphone 2 MG TABLET PO PRN ×5 (11:10→22:31)
[2018-03-07] MEDS: GENTAMICIN 440 MG in SODIUM CHLORIDE 0.9% 100ML 100 ML IV SCH (12:00)
--- NOTE | 2018-03-07 13:21 | PROVIDER PROGRESS NOTE ---
Assessment/Plan - Problem List (1) Sigmoid diverticulitis Assessment/Plan: Clinically slowly improving, although pt continues to c/o abd pain. Plan: continue present management as per Dr. Gilmar Newman with transfer to SNF, cl liq diet, TPN, IV antibiotics, and hopefully pt will be able to have an elective sigmoid colectomy and avoid a colostomy. - Current Meds Current Meds: Current Medications Generic Name Dose Route Start Last Admin Trade Name Freq PRN Reason Stop Dose Admin Baclofen 20 mg 03/03/18 11:19 03/06/18 06:29 Lioresal PO 20 mg TID PRN Administration Spasms Cyclobenzaprine HCl 10 mg 03/03/18 21:00 03/05/18 15:49 Flexeril PO 10 mg QPM PRN Administration Spasms Enoxaparin Sodium 40 mg 03/01/18 21:00 03/07/18 09:14 Lovenox SUBQ 40 mg DAILY TERESA Administration Hydrochlorothiazide 25 mg 03/04/18 09:00 03/07/18 09:16 Hydrodiuril PO 25 mg DAILY [facility] Administration Hydromorphone HCl 2 mg 03/01/18 19:52 03/07/18 02:16 Dilaudid (Vial) IVP 2 mg Q2H PRN Administration Abdominal Pain Hydromorphone HCl 4 mg 03/04/18 01:56 03/07/18 11:10 Dilaudid PO 4 mg Q2H PRN Administration Severe Pain Piperacillin Sod/Tazobactam 100 mls @ 200 mls/hr 03/02/18 02:00 03/07/18 11: 10 Sod 3.375 gm/ Sodium Chloride IV Infused Q6H [facility] Infusion Famotidine 50 mls @ 100 mls/hr 03/02/18 21:00 03/07/18 09:50 Pepcid 20 Mg/50 Ml IV Infused BID [facility] Infusion Gentamicin Sulfate 440 mg/ 111 mls @ 100 mls/hr 03/04/18 11:00 03/07/18 12:00 Sodium Chloride IV 100 mls/hr Q24H [facility] Administration Multivitamins 10 ml/ Amino Ac/ 2,010 mls @ 83 mls/hr 03/06/18 19:00 03/06/18 22:41 Electrol/Dextrose/Calcium IV 83 mls/hr Q24H [facility] Infusion Protocol Fat Emulsion Intravenous 250 mls @ 21 mls/hr 03/06/18 19:00 03/07/18 07:25 Intralipid 20% IV Infused Q24H [facility] Infusion Chromium/Copper/Manganese/ 51 mls @ 4.25 mls/hr 03/06/18 19:00 03/07/18 07:40 Seleni/Zn 1 ml/ Sodium IV Infused Chloride Q24H [facility] Infusion Lisinopril 20 mg 03/01/18 21:00 03/07/18 09:16 Zestril PO 20 mg DAILY [facility] Administration Lorazepam 1 mg 03/06/18 01:08 03/06/18 09:11 Ativan PO 1 mg Q6H PRN Administration Anxiety Morphine Sulfate 10 mg 03/01/18 21:00 03/07/18 13:12 Morphine IVP 10 mg Q4H [facility] Administration Morphine Sulfate 10 mg 03/04/18 01:55 03/04/18 06:46 Roxanol PO 10 mg Q2HR PRN Administration PAIN Ondansetron HCl 4 mg 03/02/18 00:17 03/07/18 04:57 Zofran Odt TL 4 mg Q4HR PRN Administration Nausea / Vomiting Sodium Chloride 10 ml 03/02/18 01:00 03/07/18 09:17 Normal Saline Flush 0.9% IVP Not Given 0100,0900,1700 [facility] Sodium Chloride 10 ml 03/01/18 19:46 03/07/18 06:05 Normal Saline Flush 0.9% IVP 10 ml PRN PRN Administration NEEDED PER PROVIDER ORDERS Sodium Chloride 20 ml 03/05/18 17:26 03/07/18 06:05 Normal Saline Flush 0.9% IVP 20 ml PRN PRN Administration After Blood Draw Thyroid 120 mg 03/04/18 07:00 03/07/18 06:05 [place] Thyroid PO 120 mg QDAC TERESA Administration Trazodone HCl 200 mg 03/03/18 21:00 03/07/18 02:16 Desyrel PO 200 mg HS PRN Administration Insomnia Venlafaxine HCl 150 mg 03/03/18 12:30 03/07/18 09:16 Effexor Er PO 150 mg DAILY [facility] Administration Venlafaxine HCl 75 mg 03/03/18 21:00 03/06/18 21:01 Effexor Er PO 75 mg QPM TER[facility]A Administration - Lab Result Lab results reviewed: Yes Fish Bone Diagrams: 03/07/18 06:17 03/07/18 06:17 - Additional Planning Condition/Complexity: Improved Time Spent: 15-30 minutes Subjective - Subjective Patient Reports: Resting Comfortably, Abdominal Pain (c/o LLQ pain, but able to move in and out of bed without apparent discomfort. Tolerating clear liquid diet well, multiple loose nonbloody stools/day) Nursing Reports: Pain Objective Vital Signs: Vital Signs - 24 hr 03/06/18 03/07/18 03/07/18 15:39 00:28 08:02 Temperature 36.7 C 36.8 C 36.3 C L Heart Rate [ 71 60 69 Brachial] Respiratory 16 18 18 Rate Blood Pressure 150/93 H 145/81 H 100/60 [Right Brachial artery] O2 Saturation 96 98 95 Oxygen O2 Source Room air I&O (Last 24 Hrs): Intake and Output Totals x24h 03/05/18 03/06/18 03/07/18 23:59 23:59 23:59 Intake Total 3935.583 5416.820 1340.621 Balance 3935.583 5416.820 1340.621 General: Alert, Oriented x3, Cooperative, No acute distress (yet c/o abd pain and requesting more narcotics) HEENT: Mucous membr. moist/pink Neck: Supple, No JVD Neuro: Alert Cardiovascular: Regular rate, Normal S1, Normal S2, No murmurs Respiratory: Chest non-tender, No respiratory distress, Breath sounds nml Abdomen: Normal bowel sounds, Soft, Other (obese, soft, mildly tender diffusely but maximal in suprapubic and LLQ without guarding or rebound. No obvious distention; multiple small loose nonbloody bms/day) Extremities: No edema, Other (no calf tenderness) Skin: No rashes - Results Results: Laboratory Results WBC 6.9 x10^3/uL (4.8-10.8) 03/07/18 06:17 RBC 4.40 10^6/uL (4.20-5.40) 03/07/18 06:17 Hgb 13.6 g/dL (12.0-16.0) 03/07/18 06:17 Hct 40.3 % (37.0-47.0) 03/07/18 06:17 MCV 91.8 fL (81.0-99.0) 03/07/18 06:17 MCH 30.9 pg (27.0-31.0) 03/07/18 06:17 MCHC 33.6 g/dL (32.0-36.0) 03/07/18 06:17 RDW 12.9 % (12.0-15.0) 03/07/18 06:17 Plt Count 238 10^3/uL (130-450) 03/07/18 06:17 MPV 8.2 fL (7.9-10.8) 03/07/18 06:17 Neut # (Auto) 3.2 10^3/uL (1.5-6.6) 03/07/18 06:17 Lymph # (Auto) 2.3 10^3/uL (1.5-3.5) 03/07/18 06:17 [place] # (Auto) 0.7 10^3/uL (0.0-1.0) 03/07/18 06:17 Eos # (Auto) 0.6 10^3/uL (0.0-0.7) 03/07/18 06:17 Baso # (Auto) 0.1 10^3/uL (0.0-0.1) 03/07/18 06:17 Absolute Nucleated RBC 0.00 x10^3/uL 03/07/18 06:17 Nucleated RBC % 0.0 /100WBC 03/07/18 06:17 Manual Slide Review Indicated 03/07/18 06:17 Platelet Morphology NORMAL APPEARANCE (NORMAL) 03/07/18 06:17 RBC Morph Micro Appear NORMAL APPEARANCE (NORMAL) 03/07/18 06:17 PT 12.4 secs (9.9-12.6) 03/07/18 06:17 INR 1.1 (0.8-1.2) 03/07/18 06:17 Sodium 138 mmol/L (135-145) 03/07/18 06:17 Potassium 3.2 mmol/L (3.5-5.0) L 03/07/18 06:17 Chloride 102 mmol/L (101-111) 03/07/18 06:17 Carbon Dioxide 27 mmol/L (21-32) 03/07/18 06:17 Anion Gap 9.0 (6-13) 03/07/18 06:17 BUN 9 mg/dL (6-20) 03/07/18 06:17 Creatinine 0.7 mg/dL (0.4-1.0) 03/07/18 06:17 Estimated GFR (MDRD) 86 (>89) L 03/07/18 06:17 Glucose 98 mg/dL (70-100) 03/07/18 06:17 POC Whole Bld Glucose 106 mg/dL (70 - 100) H 03/07/18 11:43 Calcium 9.4 mg/dL (8.5-10.3) 03/07/18 06:17 Phosphorus 4.4 mg/dL (2.5-4.6) 03/07/18 06:17 Magnesium 1.9 mg/dL (1.7-2.8) 03/07/18 06:17 Total Bilirubin 0.7 mg/dL (0.2-1.0) 03/07/18 06:17 AST 34 IU/L (10-42) 03/07/18 06:17 ALT 40 IU/L (10-60) 03/07/18 06:17 Alkaline Phosphatase 62 IU/L (42-121) 03/07/18 06:17 Total Protein 7.2 g/dL (6.7-8.2) 03/07/18 06:17 Albumin 3.7 g/dL (3.2-5.5) 03/07/18 06:17 Globulin 3.5 g/dL (2.1-4.2) 03/07/18 06:17 Albumin/Globulin Ratio 1.1 (1.0-2.2) 03/07/18 06:17 Prealbumin 17 mg/dL (18-45) L 03/07/18 06:17 Triglycerides 159 mg/dL (-149) H 03/07/18 06:17 Lipase 16 U/L (22-51) L 03/01/18 17:40 TSH 6.18 uIU/mL (0.34-5.60) H 03/04/18 05:34 Free T3 pg/mL 2.69 pg/mL (2.5-3.9) 03/05/18 05:40 Total T3 0.94 ng/mL (0.87-1.78) 03/05/18 05:40 Random Gentamicin 5.5 ug/mL 03/04/18 20:14 ABX Reporting Has patient been on IV antibiotics over the past 48 hours?: Yes
[2018-03-07] MEDS: BACLOFEN 10 MG TABLET PO PRN (16:08)
[2018-03-07] MEDS: TPN (CLINIMIX E 5/15) 2,000 ML with MULTIVITAMIN 10 ML IV SCH ×2 (18:56)
[2018-03-07] MEDS: TRACE ELEMENTS V CONC 1 ML in SODIUM CHLORIDE 0.9% 50 ML IV SCH (18:57)
[2018-03-07] MEDS: FAT EMULSION 20% 250 ML IV SCH (18:57)
[2018-03-07] MEDS: DEXTROSE 5%-0.45% NACL 1,000 ML IV SCH (20:05)
--- NOTE | 2018-03-07 22:35 | PROVIDER PROGRESS NOTE ---
Subjective - Prog Note Date Prog Note Date: 03/07/18 Prog Note Time: 17:00 - Subjective Pt reports feeling: No change Subjective: Anny continues to complain of abdominal pain. She denies bleeding, chest pain, shortness of breath, or a new cough. Current Medications - Current Medications Current Medications: Active Medications Baclofen (Lioresal) 20 mg PO TID PRN PRN Reason: Spasms Last Admin: 03/07/18 16:08 Dose: 20 mg Cyclobenzaprine HCl (Flexeril) 10 mg PO QPM PRN PRN Reason: Spasms Last Admin: 03/05/18 15:49 Dose: 10 mg Enoxaparin Sodium (Lovenox) 40 mg SUBQ DAILY [facility] Last Admin: 03/07/18 09:14 Dose: 40 mg Hydrochlorothiazide (Hydrodiuril) 25 mg PO DAILY [facility] Last Admin: 03/07/18 09:16 Dose: 25 mg Hydromorphone HCl (Dilaudid (Vial)) 1 mg IVP Q2H PRN PRN Reason: Abdominal Pain Hydromorphone HCl (Dilaudid (Vial)) 2 mg IVP Q2H PRN PRN Reason: Abdominal Pain Last Admin: 03/07/18 02:16 Dose: 2 mg Hydromorphone HCl (Dilaudid) 4 mg PO Q2H PRN PRN Reason: Severe Pain Last Admin: 03/07/18 22:31 Dose: 4 mg Piperacillin Sod/Tazobactam (Sod 3.375 gm/ Sodium Chloride) 100 mls @ 200 mls/ hr IV Q6H [facility] Last Infusion: 03/07/18 20:35 Dose: Infused Famotidine (Pepcid 20 Mg/50 Ml) 50 mls @ 100 mls/hr IV BID [facility] Last Infusion: 03/07/18 21:35 Dose: Infused Gentamicin Sulfate 440 mg/ (Sodium Chloride) 111 mls @ 100 mls/hr IV Q24H [facility] Last Infusion: 03/07/18 13:43 Dose: Infused Multivitamins 10 ml/ Amino Ac/ (Electrol/Dextrose/Calcium) 2,010 mls @ 83 mls/ hr IV Q24H [facility] PRN Reason: Protocol Last Admin: 03/07/18 18:56 Dose: 83 mls/hr Fat Emulsion Intravenous (Intralipid 20%) 250 mls @ 21 mls/hr IV Q24H [facility] Last Admin: 03/07/18 18:57 Dose: 21 mls/hr Chromium/Copper/Manganese/Seleni/Zn 1 ml/ Sodium Chloride 51 mls @ 4.25 mls/hr IV Q24H [facility] Last Admin: 03/07/18 18:57 Dose: 4.25 mls/hr Dextrose/Sodium Chloride (D5.45ns) 1,000 mls @ 30 mls/hr IV .[id number] [facility] PRN Reason: TKO Last Admin: 03/07/18 20:05 Dose: 30 mls/hr Lisinopril (Zestril) 20 mg PO DAILY [facility] Last Admin: 03/07/18 09:16 Dose: 20 mg Lorazepam (Ativan) 1 mg PO Q6H PRN PRN Reason: Anxiety Last Admin: 03/06/18 09:11 Dose: 1 mg Morphine Sulfate (Morphine) 10 mg IVP Q4H [facility] Last Admin: 03/07/18 21:05 Dose: 10 mg Morphine Sulfate (Roxanol) 10 mg PO Q2HR PRN PRN Reason: PAIN Last Admin: 03/04/18 06:46 Dose: 10 mg Ondansetron HCl (Zofran Odt) 4 mg TL Q4HR PRN PRN Reason: Nausea / Vomiting Last Admin: 03/07/18 19:36 Dose: 4 mg Sodium Chloride (Normal Saline Flush 0.9%) 10 ml IVP 0100,0900,1700 [facility] Last Admin: 03/07/18 17:01 Dose: 10 ml Sodium Chloride (Normal Saline Flush 0.9%) 10 ml IVP PRN PRN PRN Reason: NEEDED PER PROVIDER ORDERS Last Admin: 03/07/18 21:05 Dose: 10 ml Sodium Chloride (Normal Saline Flush 0.9%) 20 ml IVP PRN PRN PRN Reason: After Blood Draw Last Admin: 03/07/18 06:05 Dose: 20 ml Thyroid ([place] Thyroid) 120 mg PO QDAC [facility] Last Admin: 03/07/18 06:05 Dose: 120 mg Trazodone HCl (Desyrel) 200 mg PO HS PRN PRN Reason: Insomnia Last Admin: 03/07/18 02:16 Dose: 200 mg Venlafaxine HCl (Effexor Er) 150 mg PO DAILY [facility] Last Admin: 03/07/18 09:16 Dose: 150 mg Venlafaxine HCl (Effexor Er) 75 mg PO QPM [facility] Last Admin: 03/07/18 21:05 Dose: 75 mg Venlafaxine HCl [Venlafaxine HCl ER] 75 mg PO QPM 06/17/17 hydroCHLOROthiazide [Hydrochlorothiazide] 25 mg PO DAILY 08/10/17 Albuterol Sulfate [Proair Respiclick] 2 puffs INH Q4H PRN 03/02/18 Baclofen [Lioresal] 20 mg PO TID PRN 03/02/18 Cyclobenzaprine [Flexeril] 10 mg PO QPM PRN 03/02/18 Morphine Sulfate [Morphine Sulfate ER] 30 mg PO QPM 03/02/18 Ondansetron HCl [Zofran] 4 - 8 mg PO DAILY PRN 03/02/18 Oxycodone HCl [Roxicodone] 15 mg PO Q4H PRN MDD 5 tabs 03/02/18 Thyroid,Pork [[place] Thyroid] 120 mg PO QDAC 03/02/18 Venlafaxine HCl [Venlafaxine HCl ER] 150 mg PO DAILY 03/02/18 traZODone [Desyrel] 200 mg PO HS PRN 03/02/18 Objective - Vital Signs/Intake & Output Reviewed Vital Signs: Yes Vital Signs: Vital Signs x48h Temp Pulse Resp BP Pulse Ox 03/07/18 20:00 36.9 C 69 16 159/85 H 96 03/07/18 15:38 36.9 C 69 16 139/78 H 99 Intake & Output: Intake & Output 03/04/18 03/05/18 03/06/18 03/07/18 23:59 23:59 23:59 23:59 Intake Total 2291.000 3935.583 5416.820 4486.834 Output Total 900 Balance 4718.172 1715.583 5416.820 4486.834 - Objective General Appearance: positive: Alert, Moderate distress Eyes Bilateral: positive: Normal inspection ENT: positive: ENT inspection nml, Pharynx nml, No signs of dehydration Neck: positive: Nml inspection, Thyroid nml, No JVD Respiratory: positive: Chest non-tender, No respiratory distress, Breath sounds nml, Other (diminished, bilaterally) Cardiovascular: positive: Regular rate & rhythm, No gallop Peripheral Pulses: 1+ Radial (R), 1+ Radial (L) Abdomen: positive: Tenderness, Guarding, Abnml bowel sounds Back: positive: Nml inspection Skin: positive: No rash, Warm, Dry Extremities: positive: Non-tender, Full ROM, Nml appearance, Pedal edema ( generalized BLE) Neurologic/Psychiatric: positive: Oriented x3, CN's nml (2-12), Motor nml, Sensation nml, Depressed mood/affect Reflexes: Bicep (R): 2+, Bicep (L): 2+ - Lab Results Fish Bones: 03/07/18 06:17 03/07/18 06:17 Other Labs: Lab Results x24hrs 03/07/18 03/07/18 03/07/18 Range/Units 17:41 11:43 06:17 WBC (4.8-10.8) x10^3/uL RBC (4.20-5.40) 10^6/uL Hgb (12.0-16.0) g/dL Hct (37.0-47.0) % MCV (81.0-99.0) fL MCH (27.0-31.0) pg MCHC (32.0-36.0) g/dL RDW (12.0-15.0) % Plt Count (130-450) 10^3/uL MPV (7.9-10.8) fL Neut # (Auto) (1.5-6.6) 10^3/uL Lymph # (Auto) (1.5-3.5) 10^3/uL [place] # (Auto) (0.0-1.0) 10^3/uL Eos # (Auto) (0.0-0.7) 10^3/uL Baso # (Auto) (0.0-0.1) 10^3/uL Absolute Nucleated RBC x10^3/uL Nucleated RBC % /100WBC Manual Slide Review Platelet Morphology (NORMAL) RBC Morph Micro Appear (NORMAL) PT 12.4 (9.9-12.6) secs INR 1.1 (0.8-1.2) Sodium (135-145) mmol/L Potassium (3.5-5.0) mmol/L Chloride (101-111) mmol/L Carbon Dioxide (21-32) mmol/L Anion Gap (6-13) BUN (6-20) mg/dL Creatinine (0.4-1.0) mg/dL Estimated GFR (MDRD) (>89) Glucose (70-100) mg/dL POC Whole Bld Glucose 143 H 106 H (70 - 100) mg/dL Calcium (8.5-10.3) mg/dL Phosphorus (2.5-4.6) mg/dL Magnesium (1.7-2.8) mg/dL Total Bilirubin (0.2-1.0) mg/dL AST (10-42) IU/L ALT (10-60) IU/L Alkaline Phosphatase (42-121) IU/L Total Protein (6.7-8.2) g/dL Albumin (3.2-5.5) g/dL Globulin (2.1-4.2) g/dL Albumin/Globulin Ratio (1.0-2.2) Prealbumin (18-45) mg/dL Triglycerides ( - 149) mg/dL 03/07/18 03/07/18 03/07/18 Range/Units 06:17 06:17 05:23 WBC 6.9 (4.8-10.8) x10^3/uL RBC 4.40 (4.20-5.40) 10^6/uL Hgb 13.6 (12.0-16.0) g/dL Hct 40.3 (37.0-47.0) % MCV 91.8 (81.0-99.0) fL MCH 30.9 (27.0-31.0) pg MCHC 33.6 (32.0-36.0) g/dL RDW 12.9 (12.0-15.0) % Plt Count 238 (130-450) 10^3/uL MPV 8.2 (7.9-10.8) fL Neut # (Auto) 3.2 (1.5-6.6) 10^3/uL Lymph # (Auto) 2.3 (1.5-3.5) 10^3/uL [place] # (Auto) 0.7 (0.0-1.0) 10^3/uL Eos # (Auto) 0.6 (0.0-0.7) 10^3/uL Baso # (Auto) 0.1 (0.0-0.1) 10^3/uL Absolute Nucleated RBC 0.00 x10^3/uL Nucleated RBC % 0.0 /100WBC Manual Slide Review Indicated Platelet Morphology NORMAL APPEARANCE (NORMAL) RBC Morph Micro Appear NORMAL APPEARANCE (NORMAL) PT (9.9-12.6) secs INR (0.8-1.2) Sodium 138 (135-145) mmol/L Potassium 3.2 L (3.5-5.0) mmol/L Chloride 102 (101-111) mmol/L Carbon Dioxide 27 (21-32) mmol/L Anion Gap 9.0 (6-13) BUN 9 (6-20) mg/dL Creatinine 0.7 (0.4-1.0) mg/dL Estimated GFR (MDRD) 86 L (>89) Glucose 98 (70-100) mg/dL POC Whole Bld Glucose 88 (70 - 100) mg/dL Calcium 9.4 (8.5-10.3) mg/dL Phosphorus 4.4 (2.5-4.6) mg/dL Magnesium 1.9 (1.7-2.8) mg/dL Total Bilirubin 0.7 (0.2-1.0) mg/dL AST 34 (10-42) IU/L ALT 40 (10-60) IU/L Alkaline Phosphatase 62 (42-121) IU/L Total Protein 7.2 (6.7-8.2) g/dL Albumin 3.7 (3.2-5.5) g/dL Globulin 3.5 (2.1-4.2) g/dL Albumin/Globulin Ratio 1.1 (1.0-2.2) Prealbumin 17 L (18-45) mg/dL Triglycerides 159 H ( - 149) mg/dL 03/07/18 Range/Units 00:15 WBC (4.8-10.8) x10^3/uL RBC (4.20-5.40) 10^6/uL Hgb (12.0-16.0) g/dL Hct (37.0-47.0) % MCV (81.0-99.0) fL MCH (27.0-31.0) pg MCHC (32.0-36.0) g/dL RDW (12.0-15.0) % Plt Count (130-450) 10^3/uL MPV (7.9-10.8) fL Neut # (Auto) (1.5-6.6) 10^3/uL Lymph # (Auto) (1.5-3.5) 10^3/uL [place] # (Auto) (0.0-1.0) 10^3/uL Eos # (Auto) (0.0-0.7) 10^3/uL Baso # (Auto) (0.0-0.1) 10^3/uL Absolute Nucleated RBC x10^3/uL Nucleated RBC % /100WBC Manual Slide Review Platelet Morphology (NORMAL) RBC Morph Micro Appear (NORMAL) PT (9.9-12.6) secs INR (0.8-1.2) Sodium (135-145) mmol/L Potassium (3.5-5.0) mmol/L Chloride (101-111) mmol/L Carbon Dioxide (21-32) mmol/L Anion Gap (6-13) BUN (6-20) mg/dL Creatinine (0.4-1.0) mg/dL Estimated GFR (MDRD) (>89) Glucose (70-100) mg/dL POC Whole Bld Glucose 119 H (70 - 100) mg/dL Calcium (8.5-10.3) mg/dL Phosphorus (2.5-4.6) mg/dL Magnesium (1.7-2.8) mg/dL Total Bilirubin (0.2-1.0) mg/dL AST (10-42) IU/L ALT (10-60) IU/L Alkaline Phosphatase (42-121) IU/L Total Protein (6.7-8.2) g/dL Albumin (3.2-5.5) g/dL Globulin (2.1-4.2) g/dL Albumin/Globulin Ratio (1.0-2.2) Prealbumin (18-45) mg/dL Triglycerides ( - 149) mg/dL ABX Reporting Has patient been on IV antibiotics over the past 48 hours?: Yes Assessment/Plan - Problem List (1) Hypertension Impression: Blood pressure today is well controlled at 139/78. Lisinopril 20 mg PO daily and HCTZ 25 mg PO daily continue . Plan: Continue meds and monitor VS. Qualifiers: Hypertension type: essential hypertension Qualified Code(s): I10 - Essential (primary) hypertension (2) Sigmoid diverticulitis Impression: The patient continues to have pain due to her current condition. She continues on morphine/dilaudid as needed. General surgery has arranged TPN infusions that is being given via PICC. Plan: Avoid TROMPER, continue IV dilaudid, IV morphine and TPN. (3) Chronic back pain Impression: The patient has had at least 7 prior back surgeries per chart review. She continues on morphine, dilaudid and baclofen. Plan: Avoid TROMPER, continue IV dilaudid and IV morphine. Qualifiers: Back pain location: low back pain Back pain laterality: bilateral Sciatica presence: with sciatica Sciatica laterality: sciatica of left side Qualified Code(s): M54.42 - Lumbago with sciatica, left side; G89.29 - Other chronic pain; G89.29 - Other chronic pain (4) Hypothyroidism Impression: The patient takes Tyroid Armor at home at 120 mg, which is continued here. Plan: Continue and consider changing to IV form if emesis is noted. Qualifiers: Hypothyroidism type: acquired Qualified Code(s): E03.9 - Hypothyroidism, unspecified (5) Depression Impression: The patient is prescribed Effexor, and a muscle relaxer at home, and these continue here. Plan: Monitor mood and overall wellness. Qualifiers: Depression Type: other depression Qualified Code(s): F32.89 - Other specified depressive episodes
[2018-03-08] MEDS: traZODone 50 MG TABLET PO PRN (01:02)
[2018-03-08] MEDS: MORPHINE 10 MG/ML VIAL IVP SCH ×6 (01:02→21:03)
[2018-03-08] MEDS: SODIUM CHLORIDE FLUSH 0.9% 10 ML SYRINGE IVP SCH ×3 (01:03→17:12)
[2018-03-08] MEDS: PIPERACILLIN/TAZOBACTAM 3.375 GM in SODIUM CHLORIDE 0.9% MINIBAG 100 ML IV SCH ×4 (02:12→20:13)
[2018-03-08] MEDS: HYDROmorphone 2 MG TABLET PO PRN ×6 (04:38→22:10)
[2018-03-08] MEDS: THYROID 60 MG TABLET PO SCH (06:04)
[2018-03-08] MEDS: ONDANSETRON ODT 4 MG TABLET TL PRN ×2 (08:01→16:23)
[2018-03-08] MEDS: LISINOPRIL 20 MG TABLET PO SCH (08:30)
[2018-03-08] MEDS: VENLAFAXINE ER 75 MG CAPSULE PO SCH ×2 (08:30→21:03)
[2018-03-08] MEDS: hydroCHLOROthiazide 25 MG TABLET PO SCH (08:30)
[2018-03-08] MEDS: ENOXAPARIN 40 MG/0.4 ML SYRINGE SUBQ SCH (08:31)
[2018-03-08] MEDS: FAMOTIDINE 20 MG/50 ML 50 ML IV SCH ×2 (08:38→21:04)
[2018-03-08] MEDS: GENTAMICIN 440 MG in SODIUM CHLORIDE 0.9% 100ML 100 ML IV SCH (11:40)
[2018-03-08 12:21] LABS: CALCIUM 9.2 mg/dL (8.5-10.3); CREATININE 0.6 mg/dL (0.4-1.0)
[2018-03-08] MEDS: DEXTROSE 5%-0.45% NACL 1,000 ML IV SCH (15:55)
--- NOTE | 2018-03-08 16:07 | PROVIDER PROGRESS NOTE ---
Assessment/Plan - Problem List (1) Sigmoid diverticulitis Assessment/Plan: Slowly improving with present management. Rec: continue present management; transfer to SNF tomorrow for 2 more weeks of TPN, IV antibiotics. - Current Meds Current Meds: Current Medications Generic Name Dose Route Start Last Admin Trade Name Freq PRN Reason Stop Dose Admin Baclofen 20 mg 03/03/18 11:19 03/07/18 16:08 Lioresal PO 20 mg TID PRN Administration Spasms Cyclobenzaprine HCl 10 mg 03/03/18 21:00 03/05/18 15:49 Flexeril PO 10 mg QPM PRN Administration Spasms Enoxaparin Sodium 40 mg 03/01/18 21:00 03/08/18 08:31 Lovenox SUBQ 40 mg DAILY TER[facility] Administration Hydrochlorothiazide 25 mg 03/04/18 09:00 03/08/18 08:30 Hydrodiuril PO 25 mg DAILY [facility] Administration Hydromorphone HCl 2 mg 03/01/18 19:52 03/07/18 02:16 Dilaudid (Vial) IVP 2 mg Q2H PRN Administration Abdominal Pain Hydromorphone HCl 4 mg 03/04/18 01:56 03/08/18 15:26 Dilaudid PO 4 mg Q2H PRN Administration Severe Pain Piperacillin Sod/Tazobactam 100 mls @ 200 mls/hr 03/02/18 02:00 03/08/18 13: 40 Sod 3.375 gm/ Sodium Chloride IV Infused Q6H [facility] Infusion Famotidine 50 mls @ 100 mls/hr 03/02/18 21:00 03/08/18 09:10 Pepcid 20 Mg/50 Ml IV Infused BID [facility] Infusion Gentamicin Sulfate 440 mg/ 111 mls @ 100 mls/hr 03/04/18 11:00 03/08/18 12:50 Sodium Chloride IV Infused Q24H [facility] Infusion Multivitamins 10 ml/ Amino Ac/ 2,010 mls @ 83 mls/hr 03/06/18 19:00 03/07/18 22:35 Electrol/Dextrose/Calcium IV 83 mls/hr Q24H [facility] Infusion Protocol Fat Emulsion Intravenous 250 mls @ 21 mls/hr 03/06/18 19:00 03/08/18 07:12 Intralipid 20% IV Infused Q24H [facility] Infusion Chromium/Copper/Manganese/ 51 mls @ 4.25 mls/hr 03/06/18 19:00 03/08/18 07:12 Seleni/Zn 1 ml/ Sodium IV Infused Chloride Q24H [facility] Infusion Dextrose/Sodium Chloride 1,000 mls @ 30 mls/hr 03/06/18 21:00 03/08/18 15:55 D5.45ns IV Not Given .[id number] [facility] TKO Lisinopril 20 mg 03/01/18 21:00 03/08/18 08:30 Zestril PO 20 mg DAILY [facility] Administration Lorazepam 1 mg 03/06/18 01:08 03/06/18 09:11 Ativan PO 1 mg Q6H PRN Administration Anxiety Morphine Sulfate 10 mg 03/01/18 21:00 03/08/18 13:08 Morphine IVP 10 mg Q4H [facility] Administration Morphine Sulfate 10 mg 03/04/18 01:55 03/04/18 06:46 Roxanol PO 10 mg Q2HR PRN Administration PAIN Ondansetron HCl 4 mg 03/02/18 00:17 03/08/18 08:01 Zofran Odt TL 4 mg Q4HR PRN Administration Nausea / Vomiting Sodium Chloride 10 ml 03/02/18 01:00 03/08/18 08:31 Normal Saline Flush 0.9% IVP 10 ml 0100,0900,1700 [facility] Administration Sodium Chloride 10 ml 03/01/18 19:46 03/07/18 21:05 Normal Saline Flush 0.9% IVP 10 ml PRN PRN Administration NEEDED PER PROVIDER ORDERS Sodium Chloride 20 ml 03/05/18 17:26 03/07/18 06:05 Normal Saline Flush 0.9% IVP 20 ml PRN PRN Administration After Blood Draw Thyroid 120 mg 03/04/18 07:00 03/08/18 06:04 [place] Thyroid PO 120 mg QDAC [facility] Administration Trazodone HCl 200 mg 03/03/18 21:00 03/08/18 01:02 Desyrel PO 200 mg HS PRN Administration Insomnia Venlafaxine HCl 150 mg 03/03/18 12:30 03/08/18 08:30 Effexor Er PO 150 mg DAILY [facility] Administration Venlafaxine HCl 75 mg 03/03/18 21:00 03/07/18 21:05 Effexor Er PO 75 mg QPM [facility] Administration - Lab Result Lab results reviewed: Yes Fish Bone Diagrams: 03/07/18 06:17 03/08/18 10:52 - Additional Planning Condition/Complexity: Improved Plan Discussed with:: Patient Time Spent: 15-30 minutes Subjective - Subjective Patient Reports: Feeling Better, Abdominal Pain (persists in LLQ but tolerating clear liquid diet, moving bowels, no N/V, fever, chills) Objective Vital Signs: Vital Signs - 24 hr 03/07/18 03/08/18 03/08/18 20:00 00:01 07:52 Temperature 36.9 C 36.8 C 36.5 C Heart Rate [ 67 69 Brachial] Heart Rate [ 69 Radial] Respiratory 16 18 18 Rate Blood Pressure 159/85 H 148/89 H [Right Ankle] Blood Pressure 141/72 H [Right Brachial artery] O2 Saturation 96 96 99 03/08/18 15:38 Temperature 36.8 C Heart Rate [ Brachial] Heart Rate [ 65 Radial] Respiratory 16 Rate Blood Pressure 147/83 H [Right Ankle] Blood Pressure [Right Brachial artery] O2 Saturation 98 Oxygen O2 Source Room air I&O (Last 24 Hrs): Intake and Output Totals x24h 03/06/18 03/07/18 03/08/18 23:59 23:59 23:59 Intake Total 5416.820 4956.026 1696.258 Balance 5416.820 4956.026 1696.258 General: Alert, Oriented x3, Cooperative, No acute distress Abdomen: Normal bowel sounds, Soft, No tenderness, No hepatospenomegaly, No masses - Results Results: Laboratory Results WBC 6.9 x10^3/uL (4.8-10.8) 03/07/18 06:17 RBC 4.40 10^6/uL (4.20-5.40) 03/07/18 06:17 Hgb 13.6 g/dL (12.0-16.0) 03/07/18 06:17 Hct 40.3 % (37.0-47.0) 03/07/18 06:17 MCV 91.8 fL (81.0-99.0) 03/07/18 06:17 MCH 30.9 pg (27.0-31.0) 03/07/18 06:17 MCHC 33.6 g/dL (32.0-36.0) 03/07/18 06:17 RDW 12.9 % (12.0-15.0) 03/07/18 06:17 Plt Count 238 10^3/uL (130-450) 03/07/18 06:17 MPV 8.2 fL (7.9-10.8) 03/07/18 06:17 Neut # (Auto) 3.2 10^3/uL (1.5-6.6) 03/07/18 06:17 Lymph # (Auto) 2.3 10^3/uL (1.5-3.5) 03/07/18 06:17 [place] # (Auto) 0.7 10^3/uL (0.0-1.0) 03/07/18 06:17 Eos # (Auto) 0.6 10^3/uL (0.0-0.7) 03/07/18 06:17 Baso # (Auto) 0.1 10^3/uL (0.0-0.1) 03/07/18 06:17 Absolute Nucleated RBC 0.00 x10^3/uL 03/07/18 06:17 Nucleated RBC % 0.0 /100WBC 03/07/18 06:17 Manual Slide Review Indicated 03/07/18 06:17 Platelet Morphology NORMAL APPEARANCE (NORMAL) 03/07/18 06:17 RBC Morph Micro Appear NORMAL APPEARANCE (NORMAL) 03/07/18 06:17 PT 12.4 secs (9.9-12.6) 03/07/18 06:17 INR 1.1 (0.8-1.2) 03/07/18 06:17 Sodium 134 mmol/L (135-145) L 03/08/18 10:52 Potassium 3.6 mmol/L (3.5-5.0) 03/08/18 10:52 Chloride 99 mmol/L (101-111) L 03/08/18 10:52 Carbon Dioxide 28 mmol/L (21-32) 03/08/18 10:52 Anion Gap 7.0 (6-13) 03/08/18 10:52 BUN 15 mg/dL (6-20) 03/08/18 10:52 Creatinine 0.6 mg/dL (0.4-1.0) 03/08/18 10:52 Estimated GFR (MDRD) 103 (>89) 03/08/18 10:52 Glucose 109 mg/dL (70-100) H 03/08/18 10:52 POC Whole Bld Glucose 112 mg/dL (70 - 100) H 03/08/18 11:27 Calcium 9.2 mg/dL (8.5-10.3) 03/08/18 10:52 Phosphorus 4.4 mg/dL (2.5-4.6) 03/07/18 06:17 Magnesium 1.9 mg/dL (1.7-2.8) 03/07/18 06:17 Total Bilirubin 0.7 mg/dL (0.2-1.0) 03/07/18 06:17 AST 34 IU/L (10-42) 03/07/18 06:17 ALT 40 IU/L (10-60) 03/07/18 06:17 Alkaline Phosphatase 62 IU/L (42-121) 03/07/18 06:17 Total Protein 7.2 g/dL (6.7-8.2) 03/07/18 06:17 Albumin 3.7 g/dL (3.2-5.5) 03/07/18 06:17 Globulin 3.5 g/dL (2.1-4.2) 03/07/18 06:17 Albumin/Globulin Ratio 1.1 (1.0-2.2) 03/07/18 06:17 Prealbumin 17 mg/dL (18-45) L 03/07/18 06:17 Triglycerides 159 mg/dL (-149) H 03/07/18 06:17 Lipase 16 U/L (22-51) L 03/01/18 17:40 TSH 6.18 uIU/mL (0.34-5.60) H 03/04/18 05:34 Free T3 pg/mL 2.69 pg/mL (2.5-3.9) 03/05/18 05:40 Total T3 0.94 ng/mL (0.87-1.78) 03/05/18 05:40 Random Gentamicin 5.5 ug/mL 03/04/18 20:14 ABX Reporting Has patient been on IV antibiotics over the past 48 hours?: Yes
[2018-03-08] MEDS: BACLOFEN 10 MG TABLET PO PRN (16:23)
[2018-03-08] MEDS: TPN (CLINIMIX E 5/15) 2,000 ML with MULTIVITAMIN 10 ML IV SCH ×2 (19:08)
[2018-03-08] MEDS: SODIUM CHLORIDE FLUSH 0.9% 10 ML SYRINGE IVP PRN ×2 (19:08→21:04)
[2018-03-08] MEDS: FAT EMULSION 20% 250 ML IV SCH (19:09)
[2018-03-08] MEDS: TRACE ELEMENTS V CONC 1 ML in SODIUM CHLORIDE 0.9% 50 ML IV SCH (19:09)
--- NOTE | 2018-03-08 19:58 | PROVIDER PROGRESS NOTE ---
Subjective - Prog Note Date Prog Note Date: 03/08/18 Prog Note Time: 12:00 - Subjective Pt reports feeling: No change Subjective: Anny is seen walking in the hallway. She denies new symptoms such as chest pain, shortness of breath, N/V or a new cough. Current Medications - Current Medications Current Medications: Active Medications Baclofen (Lioresal) 20 mg PO TID PRN PRN Reason: Spasms Last Admin: 03/08/18 16:23 Dose: 20 mg Cyclobenzaprine HCl (Flexeril) 10 mg PO QPM PRN PRN Reason: Spasms Last Admin: 03/05/18 15:49 Dose: 10 mg Enoxaparin Sodium (Lovenox) 40 mg SUBQ DAILY [facility] Last Admin: 03/08/18 08:31 Dose: 40 mg Hydrochlorothiazide (Hydrodiuril) 25 mg PO DAILY [facility] Last Admin: 03/08/18 08:30 Dose: 25 mg Hydromorphone HCl (Dilaudid (Vial)) 1 mg IVP Q2H PRN PRN Reason: Abdominal Pain Hydromorphone HCl (Dilaudid (Vial)) 2 mg IVP Q2H PRN PRN Reason: Abdominal Pain Last Admin: 03/07/18 02:16 Dose: 2 mg Hydromorphone HCl (Dilaudid) 4 mg PO Q2H PRN PRN Reason: Severe Pain Last Admin: 03/08/18 19:06 Dose: 4 mg Piperacillin Sod/Tazobactam (Sod 3.375 gm/ Sodium Chloride) 100 mls @ 200 mls/ hr IV Q6H [facility] Last Infusion: 03/08/18 13:40 Dose: Infused Famotidine (Pepcid 20 Mg/50 Ml) 50 mls @ 100 mls/hr IV BID [facility] Last Infusion: 03/08/18 09:10 Dose: Infused Gentamicin Sulfate 440 mg/ (Sodium Chloride) 111 mls @ 100 mls/hr IV Q24H [facility] Last Infusion: 03/08/18 12:50 Dose: Infused Multivitamins 10 ml/ Amino Ac/ (Electrol/Dextrose/Calcium) 2,010 mls @ 83 mls/ hr IV Q24H [facility] PRN Reason: Protocol Last Admin: 03/08/18 19:08 Dose: 83 mls/hr Fat Emulsion Intravenous (Intralipid 20%) 250 mls @ 21 mls/hr IV Q24H [facility] Last Admin: 03/08/18 19:09 Dose: 21 mls/hr Chromium/Copper/Manganese/Seleni/Zn 1 ml/ Sodium Chloride 51 mls @ 4.25 mls/hr IV Q24H [facility] Last Admin: 03/08/18 19:09 Dose: 4.25 mls/hr Dextrose/Sodium Chloride (D5.45ns) 1,000 mls @ 30 mls/hr IV .[id number] [facility] PRN Reason: TKO Last Admin: 03/08/18 15:55 Dose: Not Given Lisinopril (Zestril) 20 mg PO DAILY [facility] Last Admin: 03/08/18 08:30 Dose: 20 mg Lorazepam (Ativan) 1 mg PO Q6H PRN PRN Reason: Anxiety Last Admin: 03/06/18 09:11 Dose: 1 mg Morphine Sulfate (Morphine) 10 mg IVP Q4H [facility] Last Admin: 03/08/18 17:12 Dose: 10 mg Morphine Sulfate (Roxanol) 10 mg PO Q2HR PRN PRN Reason: PAIN Last Admin: 03/04/18 06:46 Dose: 10 mg Ondansetron HCl (Zofran Odt) 4 mg TL Q4HR PRN PRN Reason: Nausea / Vomiting Last Admin: 03/08/18 16:23 Dose: 4 mg Sodium Chloride (Normal Saline Flush 0.9%) 10 ml IVP 0100,0900,1700 [facility] Last Admin: 03/08/18 17:12 Dose: 10 ml Sodium Chloride (Normal Saline Flush 0.9%) 10 ml IVP PRN PRN PRN Reason: NEEDED PER PROVIDER ORDERS Last Admin: 03/08/18 19:08 Dose: 10 ml Sodium Chloride (Normal Saline Flush 0.9%) 20 ml IVP PRN PRN PRN Reason: After Blood Draw Last Admin: 03/07/18 06:05 Dose: 20 ml Thyroid ([place] Thyroid) 120 mg PO QDAC [facility] Last Admin: 03/08/18 06:04 Dose: 120 mg Trazodone HCl (Desyrel) 200 mg PO HS PRN PRN Reason: Insomnia Last Admin: 03/08/18 01:02 Dose: 200 mg Venlafaxine HCl (Effexor Er) 150 mg PO DAILY [facility] Last Admin: 03/08/18 08:30 Dose: 150 mg Venlafaxine HCl (Effexor Er) 75 mg PO QPM [facility] Last Admin: 03/07/18 21:05 Dose: 75 mg Venlafaxine HCl [Venlafaxine HCl ER] 75 mg PO QPM 06/17/17 hydroCHLOROthiazide [Hydrochlorothiazide] 25 mg PO DAILY 08/10/17 Albuterol Sulfate [Proair Respiclick] 2 puffs INH Q4H PRN 03/02/18 Baclofen [Lioresal] 20 mg PO TID PRN 03/02/18 Cyclobenzaprine [Flexeril] 10 mg PO QPM PRN 03/02/18 Morphine Sulfate [Morphine Sulfate ER] 30 mg PO QPM 03/02/18 Ondansetron HCl [Zofran] 4 - 8 mg PO DAILY PRN 03/02/18 Oxycodone HCl [Roxicodone] 15 mg PO Q4H PRN MDD 5 tabs 03/02/18 Thyroid,Pork [[place] Thyroid] 120 mg PO QDAC 03/02/18 Venlafaxine HCl [Venlafaxine HCl ER] 150 mg PO DAILY 03/02/18 traZODone [Desyrel] 200 mg PO HS PRN 03/02/18 Objective - Vital Signs/Intake & Output Reviewed Vital Signs: Yes Vital Signs: Vital Signs x48h Temp Pulse Resp BP Pulse Ox 03/08/18 15:38 36.8 C 65 16 147/83 H 98 Intake & Output: Intake & Output 03/05/18 03/06/18 03/07/18 03/08/18 23:59 23:59 23:59 23:59 Intake Total 3935.583 5416.820 4956.026 3814.988 Balance 3935.583 5416.820 4956.026 3814.988 - Objective General Appearance: positive: Alert, Moderate distress, Anxious, Lethargic Eyes Bilateral: positive: Normal inspection, PERRL Eyes: OU Conjunctivae pale ENT: positive: ENT inspection nml, Pharynx nml, Pharyngeal erythema, Dry mucous membranes Neck: positive: Nml inspection, Thyroid nml, No JVD, Stiff neck Respiratory: positive: Chest non-tender, No respiratory distress, Other ( diminshed.) Cardiovascular: positive: Regular rate & rhythm, No gallop, Systolic murmur, Decreased pulse(s) Peripheral Pulses: 1+ Radial (R), 1+ Radial (L) Abdomen: positive: Tenderness, Guarding, Abnml bowel sounds (hyperactive), Other (increased abdominal girth, soft) Back: positive: Nml inspection Skin: positive: No rash, Warm, Dry Extremities: positive: Non-tender, Pedal edema (trace), Joint swelling Neurologic/Psychiatric: positive: Oriented x3, Motor nml, Weakness, Slurred/ abnml speech, Depressed mood/affect Reflexes: Bicep (R): 2+, Bicep (L): 2+ - Lab Results Fish Bones: 03/09/18 05:38 03/09/18 05:38 Other Labs: Lab Results x24hrs 03/08/18 03/08/18 03/08/18 Range/Units 17:50 11:27 10:52 Sodium 134 L (135-145) mmol/L Potassium 3.6 (3.5-5.0) mmol/L Chloride 99 L (101-111) mmol/L Carbon Dioxide 28 (21-32) mmol/L Anion Gap 7.0 (6-13) BUN 15 (6-20) mg/dL Creatinine 0.6 (0.4-1.0) mg/dL Estimated GFR (MDRD) 103 (>89) Glucose 109 H (70-100) mg/dL POC Whole Bld Glucose 126 H 112 H (70 - 100) mg/dL Calcium 9.2 (8.5-10.3) mg/dL 03/08/18 03/07/18 Range/Units 05:30 23:49 Sodium (135-145) mmol/L Potassium (3.5-5.0) mmol/L Chloride (101-111) mmol/L Carbon Dioxide (21-32) mmol/L Anion Gap (6-13) BUN (6-20) mg/dL Creatinine (0.4-1.0) mg/dL Estimated GFR (MDRD) (>89) Glucose (70-100) mg/dL POC Whole Bld Glucose 120 H 126 H (70 - 100) mg/dL Calcium (8.5-10.3) mg/dL - Diagnostic Imaging Diagnostic Imaging Results: positive: Final report reviewed ABX Reporting Has patient been on IV antibiotics over the past 48 hours?: Yes Assessment/Plan - Problem List (1) Hypertension Impression: Blood pressure today is well controlled at 139/78. Lisinopril 20 mg PO daily and HCTZ 25 mg PO daily continue . Plan: Continue meds and monitor VS. Qualifiers: Hypertension type: essential hypertension Qualified Code(s): I10 - Essential (primary) hypertension (2) Sigmoid diverticulitis Impression: The patient continues to have pain due to her current condition. She continues on morphine/dilaudid as needed. General surgery has arranged TPN infusions that is being given via PICC. She is encouraged to undergo an elective surgery after this acute illness to remove part of her colon. Plan: Continue IV dilaudid, IV morphine and TPN. (3) Chronic back pain Impression: The patient has had at least 7 prior back surgeries per chart review. She continues on morphine, dilaudid and baclofen. She notes that her back pain is well controlled and the abdominal pain has taken over. Plan: Continue IV dilaudid and IV morphine. Qualifiers: Back pain location: low back pain Back pain laterality: bilateral Sciatica presence: with sciatica Sciatica laterality: sciatica of left side Qualified Code(s): M54.42 - Lumbago with sciatica, left side; G89.29 - Other chronic pain; G89.29 - Other chronic pain (4) Hypothyroidism Impression: The patient takes Tyroid Armor at home at 120 mg, which is continued here. A TSH was 6.18 on 03/04/18. Plan: Continue and consider changing to IV form if emesis is noted. Qualifiers: Hypothyroidism type: acquired Qualified Code(s): E03.9 - Hypothyroidism, unspecified (5) Depression Impression: The patient is prescribed Effexor, and a muscle relaxer at home, and these continue here. She has major depressive disorder as per chart review. Plan: Monitor mood and overall wellness. Qualifiers: Depression Type: other depression Qualified Code(s): F32.89 - Other specified depressive episodes
[2018-03-09] MEDS: SODIUM CHLORIDE FLUSH 0.9% 10 ML SYRINGE IVP SCH ×3 (00:47→17:52)
[2018-03-09] MEDS: MORPHINE 10 MG/ML VIAL IVP SCH ×6 (00:47→22:04)
[2018-03-09] MEDS: traZODone 50 MG TABLET PO PRN (00:48)
[2018-03-09] MEDS: ONDANSETRON ODT 4 MG TABLET TL PRN (01:15)
[2018-03-09] MEDS: PIPERACILLIN/TAZOBACTAM 3.375 GM in SODIUM CHLORIDE 0.9% MINIBAG 100 ML IV SCH ×4 (02:18→20:23)
[2018-03-09] MEDS: SODIUM CHLORIDE FLUSH 0.9% 10 ML SYRINGE IVP PRN (05:07)
[2018-03-09] MEDS: THYROID 60 MG TABLET PO SCH (05:14)
[2018-03-09 06:42] LABS: BASOPHILS # (AUTO) 0.1 10^3/uL (0.0-0.1); BASOPHILS % (AUTO) 1.4 %; EOSINOPHILS # (AUTO) 0.4 10^3/uL (0.0-0.7); EOSINOPHILS % (AUTO) 6.7 %; HGB - HEMOGLOBIN 13.2 g/dL (12.0-16.0); LYMPHOCYTES # (AUTO) 2.2 10^3/uL (1.5-3.5); LYMPHOCYTES % (AUTO) 37.6 %; MEAN CORPUSCULAR HEMOGLOBIN 31.2 pg (27.0-31.0); MEAN CORPUSCULAR HGB CONC 33.4 g/dL (32.0-36.0); MEAN CORPUSCULAR VOLUME 93.5 fL (81.0-99.0); MEAN PLATELET VOLUME 8.3 fL (7.9-10.8); MONOCYTES # (AUTO) 0.6 10^3/uL (0.0-1.0); NEUTROPHILS # (AUTO) 2.6 10^3/uL (1.5-6.6); NEUTROPHILS % (AUTO) 44.3 %; PLT - PLATELET COUNT 208 10^3/uL (130-450); RED BLOOD COUNT 4.23 10^6/uL (4.20-5.40); RED CELL DISTRIBUTION WIDTH 12.8 % (12.0-15.0); WHITE BLOOD COUNT 5.9 x10^3/uL (4.8-10.8)
[2018-03-09 06:59] LABS: ALBUMIN/GLOBULIN RATIO 0.9 (1.0-2.2); BILIRUBIN,TOTAL 0.2 mg/dL (0.2-1.0); CALCIUM 9.2 mg/dL (8.5-10.3); CREATININE 0.7 mg/dL (0.4-1.0); MAGNESIUM 2.1 mg/dL (1.7-2.8); PHOSPHORUS 3.7 mg/dL (2.5-4.6); TOTAL PROTEIN 6.2 g/dL (6.7-8.2)
[2018-03-09] MEDS: ENOXAPARIN 40 MG/0.4 ML SYRINGE SUBQ SCH (08:17)
[2018-03-09] MEDS: FAMOTIDINE 20 MG/50 ML 50 ML IV SCH ×2 (08:17→22:11)
[2018-03-09] MEDS: LISINOPRIL 20 MG TABLET PO SCH (08:18)
[2018-03-09] MEDS: VENLAFAXINE ER 75 MG CAPSULE PO SCH ×2 (08:18→22:12)
[2018-03-09] MEDS: hydroCHLOROthiazide 25 MG TABLET PO SCH (08:18)
--- NOTE | 2018-03-09 08:42 | Discharge Plan ---
"Discharge Plan for SNF / ANTOINETTE - DC Plan and Transition Orders Disposition: SNF DC/Xfer Condition: Stable SNF Transition Orders: Admit to: [facility] under the care of Kathleen Asher Discharge Diagnosis: Sigmoid diverticulitis of large intestine with microperforation, chronic back pain, chronic opioid dependence, essential hypertension, major depressive disorder, NPO status. Medicare Certification: I certify that Post Hospital usp care is medically necessary on a continuing basis for any of the conditions for which she/he is receiving care during hospitalization. Notify PCP of admission and forward orders to primary provider for signature. Weight on admission and monthly. Call PCP immediately if weight increases by 10 pounds or if patient develops dyspnea, chest pain/tightness or edema. House Bowel Program: yes; If no BM after 2 days, nurse may give M.O.M. 30ml PO PRN and /or ducolax Supp 1 HI and /or SANDRINE 250mg P.O., and/or senna 1-2 tabs PO. On day 3 nurse may give repeat above order until residents constipation is resolved. Immunizations: Annual Influenza Vaccine: yes. (between May 09 and December 06 .) Unless allergy or already given Two-Step PPD: yes per [facility] [phone] or appropriate documentation of approved exceptions Treatments & Other Orders: Continue TPN solution, IV antibiotics including Zosyn and Gentamicin. Maintain adequate pain control. Oxygen Orders: 1-2L per nasal cannula to keep oxygen greater than 90%, PRN. Lab Tests or X-Rays Orders: No x-rays indicated, TPN electrolyte monitoring via labs. Medications: PLEASE REFER TO THE DISCHARGE MEDICATION LIST. Allergies and Adverse Reactions: Allergies Allergy/AdvReac Type Severity Reaction Status Date / Time adhesive tape Allergy Rash Verified 03/01/18 16:30 hydrocodone bitartrate * AdvReac Itching Verified 03/01/18 16:30 [From Vicodin] - Medications New Prescriptions: Enoxaparin [Lovenox] 40 mg SUBQ DAILY #21 syringe Gentamicin 80Mg Vial [Garamycin] 440 mg IV Q24H #21 vial Hydromorphone HCl/0.9% NaCl/Pf [Hydromorphone 2 mg/ml-Ns Syrng] 2 mg IV Q2H PRN #40 syringe PRN Reason: Abdominal Pain Jyvonkqburav-Kkmc-Fcwruqzr,Iso [Zosyn 3.375 gm/50 ml Galaxy] 3.375 gm IV Q6H # 60 froz.piggy TPN (Clinimix 5/15) [Clinimix 5%-15% Solution] 2,000 ml IV TPN/PPN #19 bag - Diet Type: clear liquid diet May have monthly special meal: No - Therapies | Activity Therapy: Evaluation | Treat if indicated: PT Rehabilitation Potential: Maximize functional status, Return to independent living, Maintain present ADL Functional Activity: No Restrictions Weight Bearing: Full Weight Additional Instructions: call Dr. Glimar Newman office with CT scan result, phone: [phone]"
--- NOTE | 2018-03-09 09:02 | DISCHARGE SUMMARY ---
Discharge Summary Discharge Date: 03/09/18 Discharging Provider: AILYN Ann Primary Care Provider: Kathleen Asher Code Status: Attempt Resuscitation Condition at Discharge: Stable Discharge Disposition: SNF DC/Xfer Discharge Facility [facility]: [facility] - ALLERGIES Allergies/Adverse Reactions: Allergies Allergy/AdvReac Type Severity Reaction Status Date / Time adhesive tape Allergy Rash Verified 03/01/18 16:30 hydrocodone bitartrate * AdvReac Itching Verified 03/01/18 16:30 [From Vicodin] - MEDICATIONS Home Medications: Ambulatory Orders Medication Instructions Recorded Confirmed Venlafaxine HCl [Venlafaxine HCl 75 mg PO QPM 06/17/17 03/02/18 ER] hydroCHLOROthiazide 25 mg PO DAILY 08/10/17 03/02/18 [Hydrochlorothiazide] Albuterol Sulfate [Proair 2 puffs INH Q4H PRN 03/02/18 03/02/18 Respiclick] Baclofen [Lioresal] 20 mg PO TID PRN 03/02/18 03/02/18 Cyclobenzaprine [Flexeril] 10 mg PO QPM PRN 03/02/18 03/02/18 Morphine Sulfate [Morphine Sulfate 30 mg PO QPM 03/02/18 03/02/18 ER] Ondansetron HCl [Zofran] 4 - 8 mg PO DAILY PRN 03/02/18 03/02/18 Oxycodone HCl [Roxicodone] 15 mg PO Q4H PRN MDD 5 tabs 03/02/18 03/02/18 Thyroid,Pork [[place] Thyroid] 120 mg PO QDAC 03/02/18 03/02/18 Venlafaxine HCl [Venlafaxine HCl 150 mg PO DAILY 03/02/18 03/02/18 ER] traZODone [Desyrel] 200 mg PO HS PRN 03/02/18 03/02/18 Enoxaparin [Lovenox] 40 mg SUBQ DAILY #21 syringe 03/06/18 Hydromorphone HCl/0.9% NaCl/Pf 2 mg IV Q2H PRN #40 syringe 03/06/18 [Hydromorphone 2 mg/ml-Ns Syrng] [id number]-Detg-Ktrryqgw,Iso 3.375 gm IV Q6H #60 froz.piggy 03/06/18 [Zosyn 3.375 gm/50 ml Galaxy] TPN (Clinimix 5/15) [Clinimix 2,000 ml IV TPN/PPN #19 bag 03/06/18 5%-15% Solution] Gentamicin 80Mg Vial [Garamycin] 440 mg IV Q24H #21 vial 03/09/18 - PHYSICAL EXAM AT DISCHARGE General Appearance: positive: No acute distress, Alert, Anxious Eyes Bilateral: positive: Normal inspection, PERRL ENT: positive: ENT inspection nml, Pharynx nml, No signs of dehydration Neck: positive: Nml inspection, Thyroid nml, No JVD, Trachea midline Respiratory: positive: Chest non-tender, No respiratory distress, Other ( diminished) Cardiovascular: positive: Regular rate & rhythm, No gallop, Systolic murmur Peripheral Pulses: positive: 2+ Abdomen: positive: Tenderness, Guarding, Other (rounded, soft) Back: positive: Nml inspection Skin: positive: No rash, Warm, Dry Extremities: positive: Non-tender, Full ROM, Nml appearance, Pedal edema (trace , BLE dependent) Neurologic/Psychiatric: positive: Oriented x3, CN's nml (2-12), Motor nml, Sensation nml, Depressed mood/affect (baseline mood-stable) Reflexes: Bicep (R): 3+, Bicep (L): 3+ - LABS Result Diagrams: 03/09/18 05:38 03/09/18 05:38 - DIAGNOSTIC IMAGING Diagnostic Imaging Results: Final report reviewed - TIME SPENT Time Spent in Discharge (Minutes): 60
[2018-03-09] MEDS: HYDROmorphone 2 MG/ML VIAL IVP PRN (10:48)
[2018-03-09] MEDS: GENTAMICIN 440 MG in SODIUM CHLORIDE 0.9% 100ML 100 ML IV SCH (11:09)
--- NOTE | 2018-03-09 12:26 | PROVIDER PROGRESS NOTE ---
Subjective - Prog Note Date Prog Note Date: 03/09/18 Prog Note Time: 12:24 - Subjective Pt reports feeling: Improved, No change Subjective: Jong is easy going about her upcoming placement and believes that her PICC line is functioning well. She denies SOB, chest pain, N/V or a new cough. She states that she is getting used to not having food. Current Medications - Current Medications Current Medications: Active Medications Baclofen (Lioresal) 20 mg PO TID PRN PRN Reason: Spasms Last Admin: 03/08/18 16:23 Dose: 20 mg Cyclobenzaprine HCl (Flexeril) 10 mg PO QPM PRN PRN Reason: Spasms Last Admin: 03/05/18 15:49 Dose: 10 mg Enoxaparin Sodium (Lovenox) 40 mg SUBQ DAILY [facility] Last Admin: 03/09/18 08:17 Dose: 40 mg Hydrochlorothiazide (Hydrodiuril) 25 mg PO DAILY [facility] Last Admin: 03/09/18 08:18 Dose: 25 mg Hydromorphone HCl (Dilaudid (Vial)) 1 mg IVP Q2H PRN PRN Reason: Abdominal Pain Hydromorphone HCl (Dilaudid (Vial)) 2 mg IVP Q2H PRN PRN Reason: Abdominal Pain Last Admin: 03/09/18 10:48 Dose: 2 mg Hydromorphone HCl (Dilaudid) 4 mg PO Q2H PRN PRN Reason: Severe Pain Last Admin: 03/08/18 22:10 Dose: 4 mg Piperacillin Sod/Tazobactam (Sod 3.375 gm/ Sodium Chloride) 100 mls @ 200 mls/ hr IV Q6H [facility] Last Infusion: 03/09/18 08:55 Dose: Infused Famotidine (Pepcid 20 Mg/50 Ml) 50 mls @ 100 mls/hr IV BID [facility] Last Infusion: 03/09/18 10:43 Dose: Infused Gentamicin Sulfate 440 mg/ (Sodium Chloride) 111 mls @ 100 mls/hr IV Q24H [facility] Last Admin: 03/09/18 11:09 Dose: 100 mls/hr Multivitamins 10 ml/ Amino Ac/ (Electrol/Dextrose/Calcium) 2,010 mls @ 83 mls/ hr IV Q24H [facility] PRN Reason: Protocol Last Infusion: 03/08/18 23:50 Dose: 83 mls/hr Fat Emulsion Intravenous (Intralipid 20%) 250 mls @ 21 mls/hr IV Q24H [facility] Last Infusion: 03/09/18 08:56 Dose: Infused Chromium/Copper/Manganese/Seleni/Zn 1 ml/ Sodium Chloride 51 mls @ 4.25 mls/hr IV Q24H [facility] Last Infusion: 03/09/18 08:28 Dose: Infused Dextrose/Sodium Chloride (D5.45ns) 1,000 mls @ 30 mls/hr IV .[id number] [facility] PRN Reason: TKO Last Infusion: 03/08/18 23:49 Dose: 30 mls/hr Lisinopril (Zestril) 20 mg PO DAILY [facility] Last Admin: 03/09/18 08:18 Dose: 20 mg Lorazepam (Ativan) 1 mg PO Q6H PRN PRN Reason: Anxiety Last Admin: 03/06/18 09:11 Dose: 1 mg Morphine Sulfate (Morphine) 10 mg IVP Q4H [facility] Last Admin: 03/09/18 08:18 Dose: 10 mg Morphine Sulfate (Roxanol) 10 mg PO Q2HR PRN PRN Reason: PAIN Last Admin: 03/04/18 06:46 Dose: 10 mg Ondansetron HCl (Zofran Odt) 4 mg TL Q4HR PRN PRN Reason: Nausea / Vomiting Last Admin: 03/09/18 01:15 Dose: 4 mg Sodium Chloride (Normal Saline Flush 0.9%) 10 ml IVP 0100,0900,1700 [facility] Last Admin: 03/09/18 08:17 Dose: 10 ml Sodium Chloride (Normal Saline Flush 0.9%) 10 ml IVP PRN PRN PRN Reason: NEEDED PER PROVIDER ORDERS Last Admin: 03/09/18 05:07 Dose: 10 ml Sodium Chloride (Normal Saline Flush 0.9%) 20 ml IVP PRN PRN PRN Reason: After Blood Draw Last Admin: 03/07/18 06:05 Dose: 20 ml Thyroid (Carefree Thyroid) 120 mg PO QDAC [facility] Last Admin: 03/09/18 05:14 Dose: 120 mg Trazodone HCl (Desyrel) 200 mg PO HS PRN PRN Reason: Insomnia Last Admin: 03/09/18 00:48 Dose: 200 mg Venlafaxine HCl (Effexor Er) 150 mg PO DAILY [facility] Last Admin: 03/09/18 08:18 Dose: 150 mg Venlafaxine HCl (Effexor Er) 75 mg PO QPM [facility] Last Admin: 03/08/18 21:03 Dose: 75 mg Venlafaxine HCl [Venlafaxine HCl ER] 75 mg PO QPM 06/17/17 hydroCHLOROthiazide [Hydrochlorothiazide] 25 mg PO DAILY 08/10/17 Albuterol Sulfate [Proair Respiclick] 2 puffs INH Q4H PRN 03/02/18 Baclofen [Lioresal] 20 mg PO TID PRN 03/02/18 Cyclobenzaprine [Flexeril] 10 mg PO QPM PRN 03/02/18 Morphine Sulfate [Morphine Sulfate ER] 30 mg PO QPM 03/02/18 Ondansetron HCl [Zofran] 4 - 8 mg PO DAILY PRN 03/02/18 Oxycodone HCl [Roxicodone] 15 mg PO Q4H PRN MDD 5 tabs 03/02/18 Thyroid,Pork [Carefree Thyroid] 120 mg PO QDAC 03/02/18 Venlafaxine HCl [Venlafaxine HCl ER] 150 mg PO DAILY 03/02/18 traZODone [Desyrel] 200 mg PO HS PRN 03/02/18 Objective - Vital Signs/Intake & Output Reviewed Vital Signs: Yes Vital Signs: Vital Signs x48h Temp Pulse Resp BP Pulse Ox 03/09/18 08:07 36.5 C 78 18 149/101 H 97 Intake & Output: Intake & Output 03/06/18 03/07/18 03/08/18 03/09/18 23:59 23:59 23:59 23:59 Intake Total 5416.820 4956.026 5480.492 783.096 Output Total 350 1450 Balance 5416.820 4956.026 5130.492 -666.904 - Objective General Appearance: positive: No acute distress, Alert Eyes Bilateral: positive: Normal inspection, PERRL ENT: positive: ENT inspection nml, Pharynx nml, No signs of dehydration Neck: positive: Nml inspection, Thyroid nml, No JVD Respiratory: positive: Chest non-tender, No respiratory distress, Breath sounds nml, Other (diminished) Cardiovascular: positive: Regular rate & rhythm, No gallop, Systolic murmur Peripheral Pulses: 1+ Radial (R), 1+ Radial (L) Back: positive: Nml inspection Skin: positive: No rash, Warm, Dry Extremities: positive: Non-tender Neurologic/Psychiatric: positive: Oriented x3, CN's nml (2-12), Motor nml, Sensation nml Reflexes: Bicep (R): 2+, Bicep (L): 2+ - Lab Results Fish Bones: 03/09/18 05:38 03/09/18 05:38 Other Labs: Lab Results x24hrs 03/09/18 03/09/18 03/09/18 Range/Units 10:59 06:38 05:38 WBC 5.9 (4.8-10.8) x10^3/uL RBC 4.23 (4.20-5.40) 10^6/uL Hgb 13.2 (12.0-16.0) g/dL Hct 39.5 (37.0-47.0) % MCV 93.5 (81.0-99.0) fL MCH 31.2 H (27.0-31.0) pg MCHC 33.4 (32.0-36.0) g/dL RDW 12.8 (12.0-15.0) % Plt Count 208 (130-450) 10^3/uL MPV 8.3 (7.9-10.8) fL Neut # (Auto) 2.6 (1.5-6.6) 10^3/uL Lymph # (Auto) 2.2 (1.5-3.5) 10^3/uL [place] # (Auto) 0.6 (0.0-1.0) 10^3/uL Eos # (Auto) 0.4 (0.0-0.7) 10^3/uL Baso # (Auto) 0.1 (0.0-0.1) 10^3/uL Absolute Nucleated RBC 0.00 x10^3/uL Nucleated RBC % 0.1 /100WBC Sodium (135-145) mmol/L Potassium (3.5-5.0) mmol/L Chloride (101-111) mmol/L Carbon Dioxide (21-32) mmol/L Anion Gap (6-13) BUN (6-20) mg/dL Creatinine (0.4-1.0) mg/dL Estimated GFR (MDRD) (>89) Glucose (70-100) mg/dL POC Whole Bld Glucose 152 H 122 H (70 - 100) mg/dL Calcium (8.5-10.3) mg/dL Phosphorus (2.5-4.6) mg/dL Magnesium (1.7-2.8) mg/dL Total Bilirubin (0.2-1.0) mg/dL AST (10-42) IU/L ALT (10-60) IU/L Alkaline Phosphatase (42-121) IU/L Total Protein (6.7-8.2) g/dL Albumin (3.2-5.5) g/dL Globulin (2.1-4.2) g/dL Albumin/Globulin Ratio (1.0-2.2) Prealbumin (18-45) mg/dL Triglycerides ( - 149) mg/dL 03/09/18 03/09/18 03/08/18 Range/Units 05:38 00:52 17:50 WBC (4.8-10.8) x10^3/uL RBC (4.20-5.40) 10^6/uL Hgb (12.0-16.0) g/dL Hct (37.0-47.0) % MCV (81.0-99.0) fL MCH (27.0-31.0) pg MCHC (32.0-36.0) g/dL RDW (12.0-15.0) % Plt Count (130-450) 10^3/uL MPV (7.9-10.8) fL Neut # (Auto) (1.5-6.6) 10^3/uL Lymph # (Auto) (1.5-3.5) 10^3/uL [place] # (Auto) (0.0-1.0) 10^3/uL Eos # (Auto) (0.0-0.7) 10^3/uL Baso # (Auto) (0.0-0.1) 10^3/uL Absolute Nucleated RBC x10^3/uL Nucleated RBC % /100WBC Sodium 141 (135-145) mmol/L Potassium 3.3 L (3.5-5.0) mmol/L Chloride 106 (101-111) mmol/L Carbon Dioxide 29 (21-32) mmol/L Anion Gap 6.0 (6-13) BUN 17 (6-20) mg/dL Creatinine 0.7 (0.4-1.0) mg/dL Estimated GFR (MDRD) 86 L (>89) Glucose 118 H (70-100) mg/dL POC Whole Bld Glucose 127 H 126 H (70 - 100) mg/dL Calcium 9.2 (8.5-10.3) mg/dL Phosphorus 3.7 (2.5-4.6) mg/dL Magnesium 2.1 (1.7-2.8) mg/dL Total Bilirubin 0.2 (0.2-1.0) mg/dL AST 18 (10-42) IU/L ALT 22 (10-60) IU/L Alkaline Phosphatase 47 (42-121) IU/L Total Protein 6.2 L (6.7-8.2) g/dL Albumin 3.0 L (3.2-5.5) g/dL Globulin 3.2 (2.1-4.2) g/dL Albumin/Globulin Ratio 0.9 L (1.0-2.2) Prealbumin 16 L (18-45) mg/dL Triglycerides 220 H ( - 149) mg/dL - Diagnostic Imaging Diagnostic Imaging Results: positive: Final report reviewed ABX Reporting Has patient been on IV antibiotics over the past 48 hours?: Yes Assessment/Plan - Problem List (1) Hypertension Impression: Blood pressure today is 147/81, and is becoming out of the range of control. Lisinopril 20 mg PO daily and HCTZ 25 mg PO daily continue. I am adding Hydralazine low dose TID orally to control her blood pressure. Plan: Continue meds and monitor VS. Qualifiers: Hypertension type: essential hypertension Qualified Code(s): I10 - Essential (primary) hypertension (2) Sigmoid diverticulitis Impression: The patient continues to have pain due to her current condition. She continues on morphine/dilaudid as needed. General surgery has arranged TPN infusions that is being given via PICC. She is encouraged to undergo an elective surgery after this acute illness to remove part of her colon. Plan: Continue IV dilaudid, IV morphine and TPN. (3) Chronic back pain Impression: The patient has had at least 7 prior back surgeries per chart review. She continues on morphine, dilaudid and baclofen. She notes that her back pain is well controlled and the abdominal pain has taken over. She continues to ambulate in the hallways. Plan: Continue IV dilaudid and IV morphine. Qualifiers: Back pain location: low back pain Back pain laterality: bilateral Sciatica presence: with sciatica Sciatica laterality: sciatica of left side Qualified Code(s): M54.42 - Lumbago with sciatica, left side; G89.29 - Other chronic pain; G89.29 - Other chronic pain (4) Hypothyroidism Impression: The patient takes Tyroid Armor at home at 120 mg, which is continued here. A TSH was 6.18 on 03/04/18. Plan: Continue and consider changing to IV form if emesis is noted. Qualifiers: Hypothyroidism type: acquired Qualified Code(s): E03.9 - Hypothyroidism, unspecified (5) Depression Impression: The patient is prescribed Effexor, and a muscle relaxer at home, and these continue here. She has major depressive disorder as per chart review. She certainly does not demonstrate a flat affect when speaking to me. Plan: Monitor mood and overall wellness. Qualifiers: Depression Type: other depression Qualified Code(s): F32.89 - Other specified depressive episodes
[2018-03-09] MEDS: HYDROmorphone 2 MG TABLET PO PRN ×3 (16:25→22:45)
[2018-03-09] MEDS: DEXTROSE 5%-0.45% NACL 1,000 ML IV SCH (17:53)
[2018-03-09] MEDS: TPN (CLINIMIX E 5/15) 2,000 ML with MULTIVITAMIN 10 ML IV SCH ×2 (19:34)
[2018-03-09] MEDS: FAT EMULSION 20% 250 ML IV SCH (19:34)
[2018-03-09] MEDS: TRACE ELEMENTS V CONC 1 ML in SODIUM CHLORIDE 0.9% 50 ML IV SCH (19:35)
[2018-03-09] MEDS ORDERED: MORPHINE 10 MG/ML VIAL ONE (22:12)
[2018-03-09] MEDS: hydrALAZINE INJ 20 MG/ML VIAL IVP SCH (22:46)
[2018-03-10] MEDS: ONDANSETRON ODT 4 MG TABLET TL PRN ×2 (00:32→22:57)
[2018-03-10] MEDS: traZODone 50 MG TABLET PO PRN ×2 (00:35→21:58)
[2018-03-10] MEDS: MORPHINE 10 MG/ML VIAL IVP SCH ×6 (01:41→21:51)
[2018-03-10] MEDS: SODIUM CHLORIDE FLUSH 0.9% 10 ML SYRINGE IVP SCH ×3 (01:41→18:12)
[2018-03-10] MEDS: PIPERACILLIN/TAZOBACTAM 3.375 GM in SODIUM CHLORIDE 0.9% MINIBAG 100 ML IV SCH ×4 (01:44→21:41)
[2018-03-10] MEDS: hydrALAZINE INJ 20 MG/ML VIAL IVP SCH ×3 (05:36→21:51)
[2018-03-10] MEDS: SODIUM CHLORIDE FLUSH 0.9% 10 ML SYRINGE IVP PRN (05:43)
[2018-03-10 06:04] LABS: BASOPHILS # (AUTO) 0.1 10^3/uL (0.0-0.1); BASOPHILS % (AUTO) 1.5 %; EOSINOPHILS # (AUTO) 0.4 10^3/uL (0.0-0.7); EOSINOPHILS % (AUTO) 5.4 %; HGB - HEMOGLOBIN 13.7 g/dL (12.0-16.0); LYMPHOCYTES # (AUTO) 1.6 10^3/uL (1.5-3.5); LYMPHOCYTES % (AUTO) 22.9 %; MEAN CORPUSCULAR HEMOGLOBIN 31.2 pg (27.0-31.0); MEAN CORPUSCULAR HGB CONC 33.9 g/dL (32.0-36.0); MEAN CORPUSCULAR VOLUME 91.9 fL (81.0-99.0); MEAN PLATELET VOLUME 8.3 fL (7.9-10.8); MONOCYTES # (AUTO) 0.7 10^3/uL (0.0-1.0); MONOCYTES % (AUTO) 9.9 %; NEUTROPHILS # (AUTO) 4.3 10^3/uL (1.5-6.6); NEUTROPHILS % (AUTO) 60.3 %; PLT - PLATELET COUNT 216 10^3/uL (130-450); RED BLOOD COUNT 4.38 10^6/uL (4.20-5.40); RED CELL DISTRIBUTION WIDTH 12.9 % (12.0-15.0); WHITE BLOOD COUNT 7.1 x10^3/uL (4.8-10.8)
[2018-03-10] MEDS: THYROID 60 MG TABLET PO SCH (06:06)
[2018-03-10] MEDS ORDERED: POTASSIUM CHLORIDE 20 MEQ TABLET PO ONE (07:15)
[2018-03-10] MEDS: HYDROmorphone 2 MG/ML VIAL IVP PRN ×3 (08:01→18:07)
[2018-03-10 08:18] LABS: ALBUMIN 3.2 g/dL (3.2-5.5); ALBUMIN/GLOBULIN RATIO 0.9 (1.0-2.2); BILIRUBIN,TOTAL 0.3 mg/dL (0.2-1.0); CALCIUM 9.3 mg/dL (8.5-10.3); CREATININE 0.5 mg/dL (0.4-1.0); TOTAL PROTEIN 6.6 g/dL (6.7-8.2)
[2018-03-10] MEDS: ENOXAPARIN 40 MG/0.4 ML SYRINGE SUBQ SCH (08:38)
[2018-03-10] MEDS: LISINOPRIL 20 MG TABLET PO SCH (08:39)
[2018-03-10] MEDS: hydroCHLOROthiazide 25 MG TABLET PO SCH (08:39)
[2018-03-10] MEDS: VENLAFAXINE ER 75 MG CAPSULE PO SCH ×2 (08:39→21:50)
[2018-03-10] MEDS: FAMOTIDINE 20 MG/50 ML 50 ML IV SCH ×2 (10:10→22:00)
[2018-03-10] MEDS: GENTAMICIN 440 MG in SODIUM CHLORIDE 0.9% 100ML 100 ML IV SCH (11:22)
--- NOTE | 2018-03-10 12:49 | PROVIDER PROGRESS NOTE ---
Subjective - General Admit Date: 03/01/18 - Review of Systems Pulmonary: positive: No symptoms Cardiovascular: positive: No symptoms Gastrointestinal: positive: Abdominal pain (She is having less abdominal pain and passing more flatus and stools), Diarrhea All Other Systems: positive: Reviewed and negative Objective - Patient Data Vital Signs: Vital Signs x48h Temp Pulse Resp BP BP Pulse Ox 03/10/18 08:05 36.7 C 80 18 119/78 97 03/10/18 05:36 117/68 Weight: Weight 03/08/18 03/09/18 03/10/18 23:59 23:59 23:59 Weight (kg) 79 kg 80 kg 79.5 kg Intake & Output: Intake and Output Totals x24h 03/08/18 03/09/18 03/10/18 23:59 23:59 23:59 Intake Total 5480.492 4823.676 1101 Output Total 350 1450 Balance 5130.492 3373.676 1101 - Lab Results Lab Results: 03/10/18 05:32 03/10/18 05:32 Other Lab Results: Lab Results x24hrs 03/10/18 03/10/18 03/10/18 Range/Units 11:15 05:50 05:32 WBC (4.8-10.8) x10^3/uL RBC (4.20-5.40) 10^6/uL Hgb (12.0-16.0) g/dL Hct (37.0-47.0) % MCV (81.0-99.0) fL MCH (27.0-31.0) pg MCHC (32.0-36.0) g/dL RDW (12.0-15.0) % Plt Count (130-450) 10^3/uL MPV (7.9-10.8) fL Neut # (Auto) (1.5-6.6) 10^3/uL Lymph # (Auto) (1.5-3.5) 10^3/uL [place] # (Auto) (0.0-1.0) 10^3/uL Eos # (Auto) (0.0-0.7) 10^3/uL Baso # (Auto) (0.0-0.1) 10^3/uL Absolute Nucleated RBC x10^3/uL Nucleated RBC % /100WBC Sodium 136 (135-145) mmol/L Potassium 3.3 L (3.5-5.0) mmol/L Chloride 103 (101-111) mmol/L Carbon Dioxide 26 (21-32) mmol/L Anion Gap 7.0 (6-13) BUN 17 (6-20) mg/dL Creatinine 0.5 (0.4-1.0) mg/dL Estimated GFR (MDRD) 127 (>89) Glucose 123 H (70-100) mg/dL POC Whole Bld Glucose 124 H 127 H (70 - 100) mg/dL Calcium 9.3 (8.5-10.3) mg/dL Total Bilirubin 0.3 (0.2-1.0) mg/dL AST 17 (10-42) IU/L ALT 22 (10-60) IU/L Alkaline Phosphatase 56 (42-121) IU/L Total Protein 6.6 L (6.7-8.2) g/dL Albumin 3.2 (3.2-5.5) g/dL Globulin 3.4 (2.1-4.2) g/dL Albumin/Globulin Ratio 0.9 L (1.0-2.2) 03/10/18 03/09/18 03/09/18 Range/Units 05:32 23:49 18:13 WBC 7.1 (4.8-10.8) x10^3/uL RBC 4.38 (4.20-5.40) 10^6/uL Hgb 13.7 (12.0-16.0) g/dL Hct 40.3 (37.0-47.0) % MCV 91.9 (81.0-99.0) fL MCH 31.2 H (27.0-31.0) pg MCHC 33.9 (32.0-36.0) g/dL RDW 12.9 (12.0-15.0) % Plt Count 216 (130-450) 10^3/uL MPV 8.3 (7.9-10.8) fL Neut # (Auto) 4.3 (1.5-6.6) 10^3/uL Lymph # (Auto) 1.6 (1.5-3.5) 10^3/uL [place] # (Auto) 0.7 (0.0-1.0) 10^3/uL Eos # (Auto) 0.4 (0.0-0.7) 10^3/uL Baso # (Auto) 0.1 (0.0-0.1) 10^3/uL Absolute Nucleated RBC 0.00 x10^3/uL Nucleated RBC % 0.0 /100WBC Sodium (135-145) mmol/L Potassium (3.5-5.0) mmol/L Chloride (101-111) mmol/L Carbon Dioxide (21-32) mmol/L Anion Gap (6-13) BUN (6-20) mg/dL Creatinine (0.4-1.0) mg/dL Estimated GFR (MDRD) (>89) Glucose (70-100) mg/dL POC Whole Bld Glucose 126 H 155 H (70 - 100) mg/dL Calcium (8.5-10.3) mg/dL Total Bilirubin (0.2-1.0) mg/dL AST (10-42) IU/L ALT (10-60) IU/L Alkaline Phosphatase (42-121) IU/L Total Protein (6.7-8.2) g/dL Albumin (3.2-5.5) g/dL Globulin (2.1-4.2) g/dL Albumin/Globulin Ratio (1.0-2.2) - Current Medications Current Medications: Current Medications Generic Name Dose Route Start Last Admin Trade Name Freq PRN Reason Stop Dose Admin Baclofen 20 mg 03/03/18 11:19 03/08/18 16:23 Lioresal PO 20 mg TID PRN Administration Spasms Cyclobenzaprine HCl 10 mg 03/03/18 21:00 03/05/18 15:49 Flexeril PO 10 mg QPM PRN Administration Spasms Enoxaparin Sodium 40 mg 03/01/18 21:00 03/10/18 08:38 Lovenox SUBQ 40 mg DAILY [facility] Administration Hydralazine HCl 10 mg 03/09/18 22:00 03/10/18 05:36 Apresoline Inj IVP Not Given TID [facility] Hydrochlorothiazide 25 mg 03/04/18 09:00 03/10/18 08:39 Hydrodiuril PO 25 mg DAILY [facility] Administration Hydromorphone HCl 2 mg 03/01/18 19:52 03/10/18 08:01 Dilaudid (Vial) IVP 2 mg Q2H PRN Administration Abdominal Pain Hydromorphone HCl 4 mg 03/04/18 01:56 03/09/18 22:45 Dilaudid PO 4 mg Q2H PRN Administration Severe Pain Piperacillin Sod/Tazobactam 100 mls @ 200 mls/hr 03/02/18 02:00 03/10/18 10: 24 Sod 3.375 gm/ Sodium Chloride IV Infused Q6H [facility] Infusion Famotidine 50 mls @ 100 mls/hr 03/02/18 21:00 03/10/18 10:24 Pepcid 20 Mg/50 Ml IV Infused BID [facility] Infusion Gentamicin Sulfate 440 mg/ 111 mls @ 100 mls/hr 03/04/18 11:00 03/10/18 11:22 Sodium Chloride IV 100 mls/hr Q24H [facility] Administration Multivitamins 10 ml/ Amino Ac/ 2,010 mls @ 83 mls/hr 03/06/18 19:00 03/09/18 19:34 Electrol/Dextrose/Calcium IV 83 mls/hr Q24H [facility] Administration Protocol Fat Emulsion Intravenous 250 mls @ 21 mls/hr 03/06/18 19:00 03/10/18 08:28 Intralipid 20% IV Infused Q24H [facility] Infusion Chromium/Copper/Manganese/ 51 mls @ 4.25 mls/hr 03/06/18 19:00 03/10/18 08:28 [place]/Zn 1 ml/ Sodium IV Infused Chloride Q24H [facility] Infusion Dextrose/Sodium Chloride 1,000 mls @ 30 mls/hr 03/06/18 21:00 03/09/18 17:53 D5.45ns IV 30 mls/hr .[id number] [facility] Administration TKO Lisinopril 20 mg 03/01/18 21:00 03/10/18 08:39 Zestril PO 20 mg DAILY [facility] Administration Lorazepam 1 mg 03/06/18 01:08 03/06/18 09:11 Ativan PO 1 mg Q6H PRN Administration Anxiety Morphine Sulfate 10 mg 03/04/18 01:55 03/04/18 06:46 Roxanol PO 10 mg Q2HR PRN Administration PAIN Morphine Sulfate 10 mg 03/10/18 02:00 03/10/18 10:35 Morphine IVP 10 mg Q4H [facility] Administration Ondansetron HCl 4 mg 03/02/18 00:17 03/10/18 00:32 Zofran Odt TL 4 mg Q4HR PRN Administration Nausea / Vomiting Sodium Chloride 10 ml 03/02/18 01:00 03/10/18 08:39 Normal Saline Flush 0.9% IVP Not Given 0100,0900,1700 [facility] Sodium Chloride 10 ml 03/01/18 19:46 03/10/18 05:43 Normal Saline Flush 0.9% IVP 10 ml PRN PRN Administration NEEDED PER PROVIDER ORDERS Sodium Chloride 20 ml 03/05/18 17:26 03/07/18 06:05 Normal Saline Flush 0.9% IVP 20 ml PRN PRN Administration After Blood Draw Thyroid 120 mg 03/04/18 07:00 03/10/18 06:06 [place] Thyroid PO 120 mg QDAC [facility] Administration Trazodone HCl 200 mg 03/03/18 21:00 03/10/18 00:35 Desyrel PO 200 mg HS PRN Administration Insomnia Venlafaxine HCl 150 mg 03/03/18 12:30 03/10/18 08:39 Effexor Er PO 150 mg DAILY [facility] Administration Venlafaxine HCl 75 mg 03/03/18 21:00 03/09/18 22:12 Effexor Er PO 75 mg QPM [facility] Administration Impression/Plan - Problem List Problem List: Diverticulitis with contained perforation. F/u ct scan unchanged. Due to still having radiographic abnormality as well as abdominal pain (improving though) recommend bowel rest with tpn and iv antibiotics. In order for this to continue, will need snf placement. Awaiting word of facility that will take patient. -continue bowel rest -continue tpn -placement.
--- NOTE | 2018-03-10 14:51 | PROVIDER PROGRESS NOTE ---
Subjective - Prog Note Date Prog Note Date: 03/10/18 - Subjective Pt reports feeling: Improved Subjective: pt report her abdomen pain did improve, better controlled. pt denies other complaints. Social work report the nurse facility is not ready to take pt yet. Dr. Gilmar Newman state pt may d/c on Friday. Current Medications - Current Medications Current Medications: Active Medications Baclofen (Lioresal) 20 mg PO TID PRN PRN Reason: Spasms Last Admin: 03/08/18 16:23 Dose: 20 mg Cyclobenzaprine HCl (Flexeril) 10 mg PO QPM PRN PRN Reason: Spasms Last Admin: 03/05/18 15:49 Dose: 10 mg Enoxaparin Sodium (Lovenox) 40 mg SUBQ DAILY [facility] Last Admin: 03/10/18 08:38 Dose: 40 mg Hydralazine HCl (Apresoline Inj) 10 mg IVP TID [facility] Last Admin: 03/10/18 14:03 Dose: Not Given Hydrochlorothiazide (Hydrodiuril) 25 mg PO DAILY [facility] Last Admin: 03/10/18 08:39 Dose: 25 mg Hydromorphone HCl (Dilaudid (Vial)) 1 mg IVP Q2H PRN PRN Reason: Abdominal Pain Hydromorphone HCl (Dilaudid (Vial)) 2 mg IVP Q2H PRN PRN Reason: Abdominal Pain Last Admin: 03/10/18 13:07 Dose: 2 mg Hydromorphone HCl (Dilaudid) 4 mg PO Q2H PRN PRN Reason: Severe Pain Last Admin: 03/09/18 22:45 Dose: 4 mg Piperacillin Sod/Tazobactam (Sod 3.375 gm/ Sodium Chloride) 100 mls @ 200 mls/ hr IV Q6H [facility] Last Admin: 03/10/18 14:42 Dose: 200 mls/hr Famotidine (Pepcid 20 Mg/50 Ml) 50 mls @ 100 mls/hr IV BID [facility] Last Infusion: 03/10/18 10:24 Dose: Infused Gentamicin Sulfate 440 mg/ (Sodium Chloride) 111 mls @ 100 mls/hr IV Q24H [facility] Last Infusion: 03/10/18 13:45 Dose: Infused Multivitamins 10 ml/ Amino Ac/ (Electrol/Dextrose/Calcium) 2,010 mls @ 83 mls/ hr IV Q24H [facility] PRN Reason: Protocol Last Admin: 03/09/18 19:34 Dose: 83 mls/hr Fat Emulsion Intravenous (Intralipid 20%) 250 mls @ 21 mls/hr IV Q24H [facility] Last Infusion: 03/10/18 08:28 Dose: Infused Chromium/Copper/Manganese/Seleni/Zn 1 ml/ Sodium Chloride 51 mls @ 4.25 mls/hr IV Q24H [facility] Last Infusion: 03/10/18 08:28 Dose: Infused Dextrose/Sodium Chloride (D5.45ns) 1,000 mls @ 30 mls/hr IV .[id number] [facility] PRN Reason: TKO Last Admin: 03/09/18 17:53 Dose: 30 mls/hr Lisinopril (Zestril) 20 mg PO DAILY [facility] Last Admin: 03/10/18 08:39 Dose: 20 mg Lorazepam (Ativan) 1 mg PO Q6H PRN PRN Reason: Anxiety Last Admin: 03/06/18 09:11 Dose: 1 mg Morphine Sulfate (Roxanol) 10 mg PO Q2HR PRN PRN Reason: PAIN Last Admin: 03/04/18 06:46 Dose: 10 mg Morphine Sulfate (Morphine) 10 mg IVP Q4H [facility] Last Admin: 03/10/18 14:42 Dose: 10 mg Ondansetron HCl (Zofran Odt) 4 mg TL Q4HR PRN PRN Reason: Nausea / Vomiting Last Admin: 03/10/18 00:32 Dose: 4 mg Sodium Chloride (Normal Saline Flush 0.9%) 10 ml IVP 0100,0900,1700 [facility] Last Admin: 03/10/18 08:39 Dose: Not Given Sodium Chloride (Normal Saline Flush 0.9%) 10 ml IVP PRN PRN PRN Reason: NEEDED PER PROVIDER ORDERS Last Admin: 03/10/18 05:43 Dose: 10 ml Sodium Chloride (Normal Saline Flush 0.9%) 20 ml IVP PRN PRN PRN Reason: After Blood Draw Last Admin: 03/07/18 06:05 Dose: 20 ml Thyroid ([place] Thyroid) 120 mg PO QDAC [facility] Last Admin: 03/10/18 06:06 Dose: 120 mg Trazodone HCl (Desyrel) 200 mg PO HS PRN PRN Reason: Insomnia Last Admin: 03/10/18 00:35 Dose: 200 mg Venlafaxine HCl (Effexor Er) 150 mg PO DAILY [facility] Last Admin: 03/10/18 08:39 Dose: 150 mg Venlafaxine HCl (Effexor Er) 75 mg PO QPM [facility] Last Admin: 03/09/18 22:12 Dose: 75 mg Venlafaxine HCl [Venlafaxine HCl ER] 75 mg PO QPM 06/17/17 hydroCHLOROthiazide [Hydrochlorothiazide] 25 mg PO DAILY 08/10/17 Albuterol Sulfate [Proair Respiclick] 2 puffs INH Q4H PRN 03/02/18 Baclofen [Lioresal] 20 mg PO TID PRN 03/02/18 Cyclobenzaprine [Flexeril] 10 mg PO QPM PRN 03/02/18 Morphine Sulfate [Morphine Sulfate ER] 30 mg PO QPM 03/02/18 Ondansetron HCl [Zofran] 4 - 8 mg PO DAILY PRN 03/02/18 Oxycodone HCl [Roxicodone] 15 mg PO Q4H PRN MDD 5 tabs 03/02/18 Thyroid,Pork [[place] Thyroid] 120 mg PO QDAC 03/02/18 Venlafaxine HCl [Venlafaxine HCl ER] 150 mg PO DAILY 03/02/18 traZODone [Desyrel] 200 mg PO HS PRN 03/02/18 Objective - Vital Signs/Intake & Output Reviewed Vital Signs: Yes Vital Signs: Vital Signs x48h Temp Pulse Resp BP BP Pulse Ox 03/10/18 14:03 119/68 119/68 03/10/18 08:05 36.7 C 80 18 119/78 97 Intake & Output: Intake & Output 03/07/18 03/08/18 03/09/18 03/10/18 23:59 23:59 23:59 23:59 Intake Total 4959.026 5480.492 4823.676 1911 Output Total 350 1450 Balance 4956.026 5130.492 3373.676 1911 - Objective General Appearance: positive: No acute distress, Alert. negative: Lethargic Eyes Bilateral: positive: Normal inspection, PERRL, No lid inflammation, Conjunctivae nml ENT: positive: ENT inspection nml, Pharynx nml, No signs of dehydration. negative: Purulent nasal drainage, Pharyngeal erythema, Oral lesions Neck: positive: Nml inspection, Thyroid nml, No JVD, Trachea midline. negative : Thyromegaly, Lymphadenopathy (R), Lymphadenopathy (L), Stiff neck, Carotid bruit, Swelling/bruising, Tracheal deviation Respiratory: positive: Chest non-tender, No respiratory distress, Breath sounds nml. negative: Wheezes, Rales, Rhonchi Cardiovascular: positive: Regular rate & rhythm, No murmur, No gallop. negative : Irregularly irregular, Extrasystoles, Tachycardia, Bradycardia, JVD present, Systolic murmur, Diastolic murmur Peripheral Pulses: 2+ Radial (R), 2+ Radial (L), 2+ Dorsalis pedis (R), 2+ Dorsalis pedis (L) Abdomen: positive: Non-tender, No organomegaly, Nml bowel sounds, No distention. negative: Tenderness, Guarding, Rebound Back: positive: Nml inspection. negative: CVA tenderness (R), CVA tenderness (L ) Skin: positive: Color nml, No rash, Warm, Dry. negative: Cyanosis, Diaphoresis , Pallor Extremities: positive: Non-tender, Full ROM, Nml appearance. negative: Calf tenderness, Joint swelling, Zac's sign/cords Neurologic/Psychiatric: positive: Oriented x3, Motor nml, Sensation nml, Mood/ affect nml. negative: Weakness, Sensory loss, Facial droop, Slurred/abnml speech, Depressed mood/affect - Lab Results Fish Bones: 03/10/18 05:32 03/10/18 05:32 Other Labs: Lab Results x24hrs 03/10/18 03/10/18 03/10/18 Range/Units 11:15 05:50 05:32 WBC (4.8-10.8) x10^3/uL RBC (4.20-5.40) 10^6/uL Hgb (12.0-16.0) g/dL Hct (37.0-47.0) % MCV (81.0-99.0) fL MCH (27.0-31.0) pg MCHC (32.0-36.0) g/dL RDW (12.0-15.0) % Plt Count (130-450) 10^3/uL MPV (7.9-10.8) fL Neut # (Auto) (1.5-6.6) 10^3/uL Lymph # (Auto) (1.5-3.5) 10^3/uL [place] # (Auto) (0.0-1.0) 10^3/uL Eos # (Auto) (0.0-0.7) 10^3/uL Baso # (Auto) (0.0-0.1) 10^3/uL Absolute Nucleated RBC x10^3/uL Nucleated RBC % /100WBC Sodium 136 (135-145) mmol/L Potassium 3.3 L (3.5-5.0) mmol/L Chloride 103 (101-111) mmol/L Carbon Dioxide 26 (21-32) mmol/L Anion Gap 7.0 (6-13) BUN 17 (6-20) mg/dL Creatinine 0.5 (0.4-1.0) mg/dL Estimated GFR (MDRD) 127 (>89) Glucose 123 H (70-100) mg/dL POC Whole Bld Glucose 124 H 127 H (70 - 100) mg/dL Calcium 9.3 (8.5-10.3) mg/dL Total Bilirubin 0.3 (0.2-1.0) mg/dL AST 17 (10-42) IU/L ALT 22 (10-60) IU/L Alkaline Phosphatase 56 (42-121) IU/L Total Protein 6.6 L (6.7-8.2) g/dL Albumin 3.2 (3.2-5.5) g/dL Globulin 3.4 (2.1-4.2) g/dL Albumin/Globulin Ratio 0.9 L (1.0-2.2) 03/10/18 03/09/18 03/09/18 Range/Units 05:32 23:49 18:13 WBC 7.1 (4.8-10.8) x10^3/uL RBC 4.38 (4.20-5.40) 10^6/uL Hgb 13.7 (12.0-16.0) g/dL Hct 40.3 (37.0-47.0) % MCV 91.9 (81.0-99.0) fL MCH 31.2 H (27.0-31.0) pg MCHC 33.9 (32.0-36.0) g/dL RDW 12.9 (12.0-15.0) % Plt Count 216 (130-450) 10^3/uL MPV 8.3 (7.9-10.8) fL Neut # (Auto) 4.3 (1.5-6.6) 10^3/uL Lymph # (Auto) 1.6 (1.5-3.5) 10^3/uL [place]ess # (Auto) 0.7 (0.0-1.0) 10^3/uL Eos # (Auto) 0.4 (0.0-0.7) 10^3/uL Baso # (Auto) 0.1 (0.0-0.1) 10^3/uL Absolute Nucleated RBC 0.00 x10^3/uL Nucleated RBC % 0.0 /100WBC Sodium (135-145) mmol/L Potassium (3.5-5.0) mmol/L Chloride (101-111) mmol/L Carbon Dioxide (21-32) mmol/L Anion Gap (6-13) BUN (6-20) mg/dL Creatinine (0.4-1.0) mg/dL Estimated GFR (MDRD) (>89) Glucose (70-100) mg/dL POC Whole Bld Glucose 126 H 155 H (70 - 100) mg/dL Calcium (8.5-10.3) mg/dL Total Bilirubin (0.2-1.0) mg/dL AST (10-42) IU/L ALT (10-60) IU/L Alkaline Phosphatase (42-121) IU/L Total Protein (6.7-8.2) g/dL Albumin (3.2-5.5) g/dL Globulin (2.1-4.2) g/dL Albumin/Globulin Ratio (1.0-2.2) ABX Reporting Has patient been on IV antibiotics over the past 48 hours?: Yes Assessment/Plan - Problem List (1) Diverticulitis Impression: (1) Hypertension Impression: stable, continue Lisinopril, HCTZ Blood pressure today is 147/81, and is becoming out of the range of control. Lisinopril 20 mg PO daily and HCTZ 25 mg PO daily continue. I am adding Hydralazine low dose TID orally to control her blood pressure. Plan: Continue meds and monitor VS. (2) Sigmoid diverticulitis Impression: sigmoid diverticulitis contained perforation follow up surgeon, bowel rest, continue TPN, and antibiotics continue pain control The patient continues to have pain due to her current condition. She continues on morphine/dilaudid as needed. General surgery has arranged TPN infusions that is being given via PICC. She is encouraged to undergo an elective surgery after this acute illness to remove part of her colon. Plan: Continue IV dilaudid, IV morphine and TPN. (3) Chronic back pain Impression: continue pain control The patient has had at least 7 prior back surgeries per chart review. She continues on morphine, dilaudid and baclofen. She notes that her back pain is well controlled and the abdominal pain has taken over. She continues to ambulate in the hallways. Plan: Continue IV dilaudid and IV morphine. (4) Hypothyroidism Impression: The patient takes Tyroid Armor at home at 120 mg, which is continued here. A TSH was 6.18 on 03/04/18. Plan: Continue and consider changing to IV form if emesis is noted. (5) Depression Impression: The patient is prescribed Effexor, and a muscle relaxer at home, and these continue here. She has major depressive disorder as per chart review. She certainly does not demonstrate a flat affect when speaking to me. Plan: Monitor mood and overall wellness.
[2018-03-10] MEDS: HYDROmorphone 2 MG TABLET PO PRN ×2 (16:49→19:47)
[2018-03-10] MEDS ORDERED: HYDROmorphone 1 MG/ML CARPUJECT IVP PRN (19:10)
[2018-03-10] MEDS: FAT EMULSION 20% 250 ML IV SCH (19:22)
[2018-03-10] MEDS: TPN (CLINIMIX E 5/15) 2,000 ML with MULTIVITAMIN 10 ML IV SCH ×2 (19:25)
[2018-03-10] MEDS: TRACE ELEMENTS V CONC 1 ML in SODIUM CHLORIDE 0.9% 50 ML IV SCH (19:25)
[2018-03-11] MEDS: HYDROmorphone 2 MG TABLET PO PRN ×3 (00:17→12:01)
[2018-03-11] MEDS: SODIUM CHLORIDE FLUSH 0.9% 10 ML SYRINGE IVP SCH ×3 (00:19→18:40)
[2018-03-11] MEDS: SODIUM CHLORIDE FLUSH 0.9% 10 ML SYRINGE IVP PRN ×2 (02:05→06:16)
[2018-03-11] MEDS: MORPHINE 10 MG/ML VIAL IVP SCH ×6 (02:05→21:13)
[2018-03-11] MEDS: PIPERACILLIN/TAZOBACTAM 3.375 GM in SODIUM CHLORIDE 0.9% MINIBAG 100 ML IV SCH ×4 (02:40→19:36)
[2018-03-11] MEDS: THYROID 60 MG TABLET PO SCH (06:15)
[2018-03-11] MEDS: hydrALAZINE INJ 20 MG/ML VIAL IVP SCH (06:17)
[2018-03-11 06:21] LABS: BASOPHILS % (AUTO) 0.3 %; EOSINOPHILS # (AUTO) 0.5 10^3/uL (0.0-0.7); EOSINOPHILS % (AUTO) 7.5 %; HGB - HEMOGLOBIN 13.7 g/dL (12.0-16.0); LYMPHOCYTES # (AUTO) 1.9 10^3/uL (1.5-3.5); LYMPHOCYTES % (AUTO) 30.5 %; MEAN CORPUSCULAR HEMOGLOBIN 30.9 pg (27.0-31.0); MEAN CORPUSCULAR HGB CONC 33.5 g/dL (32.0-36.0); MEAN CORPUSCULAR VOLUME 92.4 fL (81.0-99.0); MEAN PLATELET VOLUME 8.3 fL (7.9-10.8); MONOCYTES # (AUTO) 0.7 10^3/uL (0.0-1.0); MONOCYTES % (AUTO) 11.8 %; NEUTROPHILS # (AUTO) 3.1 10^3/uL (1.5-6.6); NEUTROPHILS % (AUTO) 49.9 %; PLT - PLATELET COUNT 210 10^3/uL (130-450); RED BLOOD COUNT 4.44 10^6/uL (4.20-5.40); RED CELL DISTRIBUTION WIDTH 13.2 % (12.0-15.0); WHITE BLOOD COUNT 6.1 x10^3/uL (4.8-10.8)
[2018-03-11 06:39] LABS: ALBUMIN 3.2 g/dL (3.2-5.5); ALBUMIN/GLOBULIN RATIO 0.9 (1.0-2.2); BILIRUBIN,TOTAL 0.4 mg/dL (0.2-1.0); CALCIUM 9.5 mg/dL (8.5-10.3); CREATININE 0.5 mg/dL (0.4-1.0); PHOSPHORUS 3.2 mg/dL (2.5-4.6); TOTAL PROTEIN 6.6 g/dL (6.7-8.2)
[2018-03-11] MEDS: LISINOPRIL 20 MG TABLET PO SCH (08:05)
[2018-03-11] MEDS: ONDANSETRON ODT 4 MG TABLET TL PRN ×2 (08:05→18:40)
[2018-03-11] MEDS: hydroCHLOROthiazide 25 MG TABLET PO SCH (08:05)
[2018-03-11] MEDS: FAMOTIDINE 20 MG/50 ML 50 ML IV SCH ×2 (08:06→20:19)
[2018-03-11] MEDS: VENLAFAXINE ER 75 MG CAPSULE PO SCH ×2 (08:06→19:53)
[2018-03-11] MEDS: ENOXAPARIN 40 MG/0.4 ML SYRINGE SUBQ SCH (08:11)
[2018-03-11] MEDS: DEXTROSE 5%-0.45% NACL 1,000 ML IV SCH (08:11)
[2018-03-11] MEDS: LORazepam 0.5 MG TABLET PO PRN (09:05)
[2018-03-11] MEDS: hydrALAZINE 25 MG TABLET PO SCH ×4 (10:16→19:53)
[2018-03-11] MEDS: GENTAMICIN 440 MG in SODIUM CHLORIDE 0.9% 100ML 100 ML IV SCH (10:54)
--- NOTE | 2018-03-11 13:59 | PROVIDER PROGRESS NOTE ---
Subjective - Prog Note Date Prog Note Date: 03/11/18 - Subjective Pt reports feeling: Improved Subjective: pt continue to report her abdominal pain is improved. No fever, chill, CP, SOB reported. Current Medications - Current Medications Current Medications: Active Medications Baclofen (Lioresal) 20 mg PO TID PRN PRN Reason: Spasms Last Admin: 03/08/18 16:23 Dose: 20 mg Cyclobenzaprine HCl (Flexeril) 10 mg PO QPM PRN PRN Reason: Spasms Last Admin: 03/05/18 15:49 Dose: 10 mg Enoxaparin Sodium (Lovenox) 40 mg SUBQ DAILY [facility] Last Admin: 03/11/18 08:11 Dose: 40 mg Hydralazine HCl (Apresoline) 25 mg PO QID [facility] Last Admin: 03/11/18 12:03 Dose: 25 mg Hydrochlorothiazide (Hydrodiuril) 25 mg PO DAILY [facility] Last Admin: 03/11/18 08:05 Dose: 25 mg Hydromorphone HCl (Dilaudid (Vial)) 2 mg IVP Q2H PRN PRN Reason: Abdominal Pain Last Admin: 03/10/18 18:07 Dose: 2 mg Hydromorphone HCl (Dilaudid) 4 mg PO Q2H PRN PRN Reason: Severe Pain Last Admin: 03/11/18 12:01 Dose: 4 mg Hydromorphone HCl (Dilaudid Inj Carp) 1 mg IVP Q2H PRN PRN Reason: Abdominal Pain Piperacillin Sod/Tazobactam (Sod 3.375 gm/ Sodium Chloride) 100 mls @ 200 mls/ hr IV Q6H [facility] Last Infusion: 03/11/18 08:50 Dose: Infused Famotidine (Pepcid 20 Mg/50 Ml) 50 mls @ 100 mls/hr IV BID [facility] Last Infusion: 03/11/18 08:40 Dose: 0 mls/hr Gentamicin Sulfate 440 mg/ (Sodium Chloride) 111 mls @ 100 mls/hr IV Q24H [facility] Last Admin: 03/11/18 10:54 Dose: 100 mls/hr Multivitamins 10 ml/ Amino Ac/ (Electrol/Dextrose/Calcium) 2,010 mls @ 83 mls/ hr IV Q24H [facility] PRN Reason: Protocol Last Admin: 03/10/18 19:25 Dose: 83 mls/hr Fat Emulsion Intravenous (Intralipid 20%) 250 mls @ 21 mls/hr IV Q24H [facility] Last Infusion: 03/11/18 07:30 Dose: Infused Chromium/Copper/Manganese/Seleni/Zn 1 ml/ Sodium Chloride 51 mls @ 4.25 mls/hr IV Q24H [facility] Last Infusion: 03/11/18 07:30 Dose: Infused Dextrose/Sodium Chloride (D5.45ns) 1,000 mls @ 30 mls/hr IV .[id number] [facility] PRN Reason: TKO Last Admin: 03/11/18 08:11 Dose: 30 mls/hr Lisinopril (Zestril) 20 mg PO DAILY [facility] Last Admin: 03/11/18 08:05 Dose: 20 mg Lorazepam (Ativan) 1 mg PO Q6H PRN PRN Reason: Anxiety Last Admin: 03/11/18 09:05 Dose: 1 mg Morphine Sulfate (Roxanol) 10 mg PO Q2HR PRN PRN Reason: PAIN Last Admin: 03/04/18 06:46 Dose: 10 mg Morphine Sulfate (Morphine) 10 mg IVP Q4H [facility] Last Admin: 03/11/18 10:16 Dose: Not Given Ondansetron HCl (Zofran Odt) 4 mg TL Q4HR PRN PRN Reason: Nausea / Vomiting Last Admin: 03/11/18 08:05 Dose: 4 mg Sodium Chloride (Normal Saline Flush 0.9%) 10 ml IVP 0100,0900,1700 [facility] Last Admin: 03/11/18 06:16 Dose: 10 ml Sodium Chloride (Normal Saline Flush 0.9%) 10 ml IVP PRN PRN PRN Reason: NEEDED PER PROVIDER ORDERS Last Admin: 03/11/18 06:16 Dose: 10 ml Sodium Chloride (Normal Saline Flush 0.9%) 20 ml IVP PRN PRN PRN Reason: After Blood Draw Last Admin: 03/07/18 06:05 Dose: 20 ml Thyroid ([place] Thyroid) 120 mg PO QDAC [facility] Last Admin: 03/11/18 06:15 Dose: 120 mg Trazodone HCl (Desyrel) 200 mg PO HS PRN PRN Reason: Insomnia Last Admin: 03/10/18 21:58 Dose: 200 mg Venlafaxine HCl (Effexor Er) 150 mg PO DAILY [facility] Last Admin: 03/11/18 08:06 Dose: 150 mg Venlafaxine HCl (Effexor Er) 75 mg PO QPM [facility] Last Admin: 03/10/18 21:50 Dose: 75 mg Venlafaxine HCl [Venlafaxine HCl ER] 75 mg PO QPM 06/17/17 hydroCHLOROthiazide [Hydrochlorothiazide] 25 mg PO DAILY 08/10/17 Albuterol Sulfate [Proair Respiclick] 2 puffs INH Q4H PRN 03/02/18 Baclofen [Lioresal] 20 mg PO TID PRN 03/02/18 Cyclobenzaprine [Flexeril] 10 mg PO QPM PRN 03/02/18 Morphine Sulfate [Morphine Sulfate ER] 30 mg PO QPM 03/02/18 Ondansetron HCl [Zofran] 4 - 8 mg PO DAILY PRN 03/02/18 Oxycodone HCl [Roxicodone] 15 mg PO Q4H PRN MDD 5 tabs 03/02/18 Thyroid,Pork [[place] Thyroid] 120 mg PO QDAC 03/02/18 Venlafaxine HCl [Venlafaxine HCl ER] 150 mg PO DAILY 03/02/18 traZODone [Desyrel] 200 mg PO HS PRN 03/02/18 Objective - Vital Signs/Intake & Output Reviewed Vital Signs: Yes Vital Signs: Vital Signs x48h Temp Pulse BP BP BP Pulse Ox 03/11/18 07:53 36.6 C 96 132/91 H 99 03/11/18 07:19 81 127/83 H 99 03/11/18 07:00 81 134/69 H 98 03/11/18 06:42 89 133/81 H 03/11/18 06:31 81 131/77 H 03/11/18 06:26 80 137/90 H 03/11/18 06:17 128/80 Intake & Output: Intake & Output 03/08/18 03/09/18 03/10/18 03/11/18 23:59 23:59 23:59 23:59 Intake Total 5480.492 4823.676 5158.78 1929.333 Output Total 350 1450 100 3 Balance 5130.492 3373.676 5058.78 1926.333 - Objective General Appearance: positive: No acute distress, Alert. negative: Lethargic Eyes Bilateral: positive: Normal inspection, PERRL, No lid inflammation, Conjunctivae nml ENT: positive: ENT inspection nml, Pharynx nml, No signs of dehydration. negative: Purulent nasal drainage, Pharyngeal erythema, Oral lesions Neck: positive: Nml inspection, Thyroid nml, No JVD, Trachea midline. negative : Thyromegaly, Lymphadenopathy (R), Lymphadenopathy (L), Stiff neck, Swelling/ bruising, Tracheal deviation Respiratory: positive: Chest non-tender, No respiratory distress, Breath sounds nml. negative: Wheezes, Rales, Rhonchi Cardiovascular: positive: Regular rate & rhythm, No murmur, No gallop. negative : Irregularly irregular, Extrasystoles, Tachycardia, Bradycardia, JVD present, Systolic murmur, Diastolic murmur Peripheral Pulses: 2+ Radial (R), 2+ Radial (L), 2+ Dorsalis pedis (R), 2+ Dorsalis pedis (L) Abdomen: positive: Non-tender, No organomegaly, Nml bowel sounds, No distention. negative: Tenderness, Guarding, Rebound Back: positive: Nml inspection. negative: CVA tenderness (R), CVA tenderness (L ) Skin: positive: Color nml, No rash, Warm, Dry. negative: Cyanosis, Diaphoresis , Pallor Extremities: positive: Non-tender, Full ROM, Nml appearance. negative: Calf tenderness, Joint swelling, Zac's sign/cords Neurologic/Psychiatric: positive: Oriented x3, Motor nml, Sensation nml, Mood/ affect nml. negative: Weakness, Sensory loss, Facial droop, Slurred/abnml speech, Depressed mood/affect - Lab Results Fish Bones: 03/11/18 06:05 03/11/18 06:05 Other Labs: Lab Results x24hrs 03/11/18 03/11/18 03/11/18 Range/Units 11:08 06:05 06:05 WBC 6.1 (4.8-10.8) x10^3/uL RBC 4.44 (4.20-5.40) 10^6/uL Hgb 13.7 (12.0-16.0) g/dL Hct 41.0 (37.0-47.0) % MCV 92.4 (81.0-99.0) fL MCH 30.9 (27.0-31.0) pg MCHC 33.5 (32.0-36.0) g/dL RDW 13.2 (12.0-15.0) % Plt Count 210 (130-450) 10^3/uL MPV 8.3 (7.9-10.8) fL Neut # (Auto) 3.1 (1.5-6.6) 10^3/uL Lymph # (Auto) 1.9 (1.5-3.5) 10^3/uL [place] # (Auto) 0.7 (0.0-1.0) 10^3/uL Eos # (Auto) 0.5 (0.0-0.7) 10^3/uL Baso # (Auto) 0.0 (0.0-0.1) 10^3/uL Absolute Nucleated RBC 0.00 x10^3/uL Nucleated RBC % 0.1 /100WBC Sodium 141 (135-145) mmol/L Potassium 3.5 (3.5-5.0) mmol/L Chloride 106 (101-111) mmol/L Carbon Dioxide 30 (21-32) mmol/L Anion Gap 5.0 L (6-13) BUN 16 (6-20) mg/dL Creatinine 0.5 (0.4-1.0) mg/dL Estimated GFR (MDRD) 127 (>89) Glucose 126 H (70-100) mg/dL POC Whole Bld Glucose 165 H (70 - 100) mg/dL Calcium 9.5 (8.5-10.3) mg/dL Phosphorus 3.2 (2.5-4.6) mg/dL Magnesium 2.0 (1.7-2.8) mg/dL Total Bilirubin 0.4 (0.2-1.0) mg/dL AST 16 (10-42) IU/L ALT 20 (10-60) IU/L Alkaline Phosphatase 55 (42-121) IU/L Total Protein 6.6 L (6.7-8.2) g/dL Albumin 3.2 (3.2-5.5) g/dL Globulin 3.4 (2.1-4.2) g/dL Albumin/Globulin Ratio 0.9 L (1.0-2.2) Prealbumin 20 (18-45) mg/dL Triglycerides 237 H ( - 149) mg/dL 03/11/18 03/10/18 03/10/18 Range/Units 05:50 23:53 18:02 WBC (4.8-10.8) x10^3/uL RBC (4.20-5.40) 10^6/uL Hgb (12.0-16.0) g/dL Hct (37.0-47.0) % MCV (81.0-99.0) fL MCH (27.0-31.0) pg MCHC (32.0-36.0) g/dL RDW (12.0-15.0) % Plt Count (130-450) 10^3/uL MPV (7.9-10.8) fL Neut # (Auto) (1.5-6.6) 10^3/uL Lymph # (Auto) (1.5-3.5) 10^3/uL [place] # (Auto) (0.0-1.0) 10^3/uL Eos # (Auto) (0.0-0.7) 10^3/uL Baso # (Auto) (0.0-0.1) 10^3/uL Absolute Nucleated RBC x10^3/uL Nucleated RBC % /100WBC Sodium (135-145) mmol/L Potassium (3.5-5.0) mmol/L Chloride (101-111) mmol/L Carbon Dioxide (21-32) mmol/L Anion Gap (6-13) BUN (6-20) mg/dL Creatinine (0.4-1.0) mg/dL Estimated GFR (MDRD) (>89) Glucose (70-100) mg/dL POC Whole Bld Glucose 132 H 123 H 183 H (70 - 100) mg/dL Calcium (8.5-10.3) mg/dL Phosphorus (2.5-4.6) mg/dL Magnesium (1.7-2.8) mg/dL Total Bilirubin (0.2-1.0) mg/dL AST (10-42) IU/L ALT (10-60) IU/L Alkaline Phosphatase (42-121) IU/L Total Protein (6.7-8.2) g/dL Albumin (3.2-5.5) g/dL Globulin (2.1-4.2) g/dL Albumin/Globulin Ratio (1.0-2.2) Prealbumin (18-45) mg/dL Triglycerides ( - 149) mg/dL ABX Reporting Has patient been on IV antibiotics over the past 48 hours?: Yes Assessment/Plan - Problem List (1) Diverticulitis Impression: (1) Hypertension Impression: 03/11 stable, continue Lisinopril, HCTZ and hydralazine continue vital monitor stable, continue Lisinopril, HCTZ Blood pressure today is 147/81, and is becoming out of the range of control. Lisinopril 20 mg PO daily and HCTZ 25 mg PO daily continue. I am adding Hydralazine low dose TID orally to control her blood pressure. Plan: Continue meds and monitor VS. (2) Sigmoid diverticulitis Impression: 03/11 pt continue report her abdominal pain is improved. discuss with Dr. Gilmar Newman, continue follow up surgeon bowel rest, continue TPN, and antibiotics continue pain control sigmoid diverticulitis contained perforation follow up surgeon, bowel rest, continue TPN, and antibiotics continue pain control The patient continues to have pain due to her current condition. She continues on morphine/dilaudid as needed. General surgery has arranged TPN infusions that is being given via PICC. She is encouraged to undergo an elective surgery after this acute illness to remove part of her colon. Plan: Continue IV dilaudid, IV morphine and TPN. (3) Chronic back pain Impression: continue pain control The patient has had at least 7 prior back surgeries per chart review. She continues on morphine, dilaudid and baclofen. She notes that her back pain is well controlled and the abdominal pain has taken over. She continues to ambulate in the hallways. Plan: Continue IV dilaudid and IV morphine. (4) Hypothyroidism Impression: The patient takes Tyroid Armor at home at 120 mg, which is continued here. A TSH was 6.18 on 03/04/18. Plan: Continue and consider changing to IV form if emesis is noted. (5) Depression Impression: The patient is prescribed Effexor, and a muscle relaxer at home, and these continue here. She has major depressive disorder as per chart review. She certainly does not demonstrate a flat affect when speaking to me. Plan: Monitor mood and overall wellness.
[2018-03-11] MEDS: TPN (CLINIMIX E 5/15) 2,000 ML with MULTIVITAMIN 10 ML IV SCH ×2 (18:44)
[2018-03-11] MEDS: FAT EMULSION 20% 250 ML IV SCH (18:46)
[2018-03-11] MEDS: TRACE ELEMENTS V CONC 1 ML in SODIUM CHLORIDE 0.9% 50 ML IV SCH (18:48)
[2018-03-11] MEDS: ONDANSETRON 4 MG/2 ML VIAL IVP PRN (19:12)
[2018-03-11] MEDS ORDERED: PROCHLORPERAZINE 10 MG/2 ML VIAL IVP PRN (20:54)
[2018-03-11] MEDS ORDERED: HALOPERIDOL 5 MG/ML VIAL IM SCH (20:55)
[2018-03-11] MEDS ORDERED: HALOPERIDOL 5 MG/ML VIAL ONE (21:20)
--- NOTE | 2018-03-12 | PROVIDER PROGRESS NOTE ---
Subjective - General Admit Date: 03/01/18 - Review of Systems Pulmonary: positive: No symptoms Cardiovascular: positive: No symptoms Gastrointestinal: positive: Abdominal pain (She is having less abdominal pain) All Other Systems: positive: Reviewed and negative Objective - Patient Data Weight: Weight 03/09/18 03/10/18 03/11/18 23:59 23:59 23:59 Weight (kg) 80 kg 79.5 kg 80 kg Intake & Output: Intake and Output Totals x24h 03/09/18 03/10/18 03/11/18 23:59 23:59 23:59 Intake Total 4823.676 5158.78 4247.283 Output Total 1450 100 3 Balance 3373.676 5058.78 4244.283 - Lab Results Lab Results: 03/11/18 06:05 03/11/18 06:05 Other Lab Results: Lab Results x24hrs 03/11/18 03/11/18 03/11/18 Range/Units 19:44 11:08 06:05 WBC 6.1 (4.8-10.8) x10^3/uL RBC 4.44 (4.20-5.40) 10^6/uL Hgb 13.7 (12.0-16.0) g/dL Hct 41.0 (37.0-47.0) % MCV 92.4 (81.0-99.0) fL MCH 30.9 (27.0-31.0) pg MCHC 33.5 (32.0-36.0) g/dL RDW 13.2 (12.0-15.0) % Plt Count 210 (130-450) 10^3/uL MPV 8.3 (7.9-10.8) fL Neut # (Auto) 3.1 (1.5-6.6) 10^3/uL Lymph # (Auto) 1.9 (1.5-3.5) 10^3/uL [place] # (Auto) 0.7 (0.0-1.0) 10^3/uL Eos # (Auto) 0.5 (0.0-0.7) 10^3/uL Baso # (Auto) 0.0 (0.0-0.1) 10^3/uL Absolute Nucleated RBC 0.00 x10^3/uL Nucleated RBC % 0.1 /100WBC Sodium (135-145) mmol/L Potassium (3.5-5.0) mmol/L Chloride (101-111) mmol/L Carbon Dioxide (21-32) mmol/L Anion Gap (6-13) BUN (6-20) mg/dL Creatinine (0.4-1.0) mg/dL Estimated GFR (MDRD) (>89) Glucose (70-100) mg/dL POC Whole Bld Glucose 196 H 165 H (70 - 100) mg/dL Calcium (8.5-10.3) mg/dL Phosphorus (2.5-4.6) mg/dL Magnesium (1.7-2.8) mg/dL Total Bilirubin (0.2-1.0) mg/dL AST (10-42) IU/L ALT (10-60) IU/L Alkaline Phosphatase (42-121) IU/L Total Protein (6.7-8.2) g/dL Albumin (3.2-5.5) g/dL Globulin (2.1-4.2) g/dL Albumin/Globulin Ratio (1.0-2.2) Prealbumin (18-45) mg/dL Triglycerides ( - 149) mg/dL 03/11/18 03/11/18 Range/Units 06:05 05:50 WBC (4.8-10.8) x10^3/uL RBC (4.20-5.40) 10^6/uL Hgb (12.0-16.0) g/dL Hct (37.0-47.0) % MCV (81.0-99.0) fL MCH (27.0-31.0) pg MCHC (32.0-36.0) g/dL RDW (12.0-15.0) % Plt Count (130-450) 10^3/uL MPV (7.9-10.8) fL Neut # (Auto) (1.5-6.6) 10^3/uL Lymph # (Auto) (1.5-3.5) 10^3/uL [place] # (Auto) (0.0-1.0) 10^3/uL Eos # (Auto) (0.0-0.7) 10^3/uL Baso # (Auto) (0.0-0.1) 10^3/uL Absolute Nucleated RBC x10^3/uL Nucleated RBC % /100WBC Sodium 141 (135-145) mmol/L Potassium 3.5 (3.5-5.0) mmol/L Chloride 106 (101-111) mmol/L Carbon Dioxide 30 (21-32) mmol/L Anion Gap 5.0 L (6-13) BUN 16 (6-20) mg/dL Creatinine 0.5 (0.4-1.0) mg/dL Estimated GFR (MDRD) 127 (>89) Glucose 126 H (70-100) mg/dL POC Whole Bld Glucose 132 H (70 - 100) mg/dL Calcium 9.5 (8.5-10.3) mg/dL Phosphorus 3.2 (2.5-4.6) mg/dL Magnesium 2.0 (1.7-2.8) mg/dL Total Bilirubin 0.4 (0.2-1.0) mg/dL AST 16 (10-42) IU/L ALT 20 (10-60) IU/L Alkaline Phosphatase 55 (42-121) IU/L Total Protein 6.6 L (6.7-8.2) g/dL Albumin 3.2 (3.2-5.5) g/dL Globulin 3.4 (2.1-4.2) g/dL Albumin/Globulin Ratio 0.9 L (1.0-2.2) Prealbumin 20 (18-45) mg/dL Triglycerides 237 H ( - 149) mg/dL - Current Medications Current Medications: Current Medications Generic Name Dose Route Start Last Admin Trade Name Freq PRN Reason Stop Dose Admin Baclofen 20 mg 03/03/18 11:19 03/08/18 16:23 Lioresal PO 20 mg TID PRN Administration Spasms Cyclobenzaprine HCl 10 mg 03/03/18 21:00 03/05/18 15:49 Flexeril PO 10 mg QPM PRN Administration Spasms Enoxaparin Sodium 40 mg 03/01/18 21:00 03/11/18 08:11 Lovenox SUBQ 40 mg DAILY TERESA Administration Haloperidol 1 mg 03/11/18 20:55 03/11/18 21:12 Haldol Inj IM 03/12/18 00:55 1 mg ONCE TERESA Administration Hydralazine HCl 25 mg 03/11/18 10:00 03/11/18 19:53 Apresoline PO 25 mg QID TERESA Administration Hydrochlorothiazide 25 mg 03/04/18 09:00 03/11/18 08:05 Hydrodiuril PO 25 mg DAILY TER[facility]A Administration Hydromorphone HCl 2 mg 03/01/18 19:52 03/10/18 18:07 Dilaudid (Vial) IVP 2 mg Q2H PRN Administration Abdominal Pain Hydromorphone HCl 4 mg 03/04/18 01:56 03/11/18 12:01 Dilaudid PO 4 mg Q2H PRN Administration Severe Pain Hydromorphone HCl 1 mg 03/10/18 19:10 03/11/18 19:16 Dilaudid Inj Carp IVP 1 mg Q2H PRN Administration Abdominal Pain Piperacillin Sod/Tazobactam 100 mls @ 200 mls/hr 03/02/18 02:00 03/11/18 20: 21 Sod 3.375 gm/ Sodium Chloride IV Infused Q6H [facility] Infusion Famotidine 50 mls @ 100 mls/hr 03/02/18 21:00 03/11/18 21:29 Pepcid 20 Mg/50 Ml IV Infused BID [facility] Infusion Gentamicin Sulfate 440 mg/ 111 mls @ 100 mls/hr 03/04/18 11:00 03/11/18 14:39 Sodium Chloride IV Infused Q24H [facility] Infusion Multivitamins 10 ml/ Amino Ac/ 2,010 mls @ 83 mls/hr 03/06/18 19:00 03/11/18 18:44 Electrol/Dextrose/Calcium IV 83 mls/hr Q24H [facility] Administration Protocol Fat Emulsion Intravenous 250 mls @ 21 mls/hr 03/06/18 19:00 03/11/18 18:46 Intralipid 20% IV 21 mls/hr Q24H [facility] Administration Chromium/Copper/Manganese/ 51 mls @ 4.25 mls/hr 03/06/18 19:00 03/11/18 18:48 Seleni/Zn 1 ml/ Sodium IV 4.25 mls/hr Chloride Q24H [facility] Administration Dextrose/Sodium Chloride 1,000 mls @ 30 mls/hr 03/06/18 21:00 03/11/18 08:11 D5.45ns IV 30 mls/hr .[id number] [facility] Administration TKO Lisinopril 20 mg 03/01/18 21:00 03/11/18 08:05 Zestril PO 20 mg DAILY [facility] Administration Lorazepam 1 mg 03/06/18 01:08 03/11/18 09:05 Ativan PO 1 mg Q6H PRN Administration Anxiety Morphine Sulfate 10 mg 03/04/18 01:55 03/04/18 06:46 Roxanol PO 10 mg Q2HR PRN Administration PAIN Morphine Sulfate 10 mg 03/10/18 02:00 03/11/18 21:13 Morphine IVP 10 mg Q4H [facility] Administration Ondansetron HCl 4 mg 03/02/18 00:17 03/11/18 18:40 Zofran Odt TL 4 mg Q4HR PRN Administration Nausea / Vomiting Ondansetron HCl 4 mg 03/11/18 18:56 03/11/18 19:12 Zofran Inj IVP 4 mg Q4HR PRN Administration Nausea / Vomiting Sodium Chloride 10 ml 03/02/18 01:00 03/11/18 18:40 Normal Saline Flush 0.9% IVP Not Given 0100,0900,1700 [facility] Sodium Chloride 10 ml 03/01/18 19:46 03/11/18 06:16 Normal Saline Flush 0.9% IVP 10 ml PRN PRN Administration NEEDED PER PROVIDER ORDERS Sodium Chloride 20 ml 03/05/18 17:26 03/07/18 06:05 Normal Saline Flush 0.9% IVP 20 ml PRN PRN Administration After Blood Draw Thyroid 120 mg 03/04/18 07:00 03/11/18 06:15 [place] Thyroid PO 120 mg QDAC [facility] Administration Trazodone HCl 200 mg 03/03/18 21:00 03/10/18 21:58 Desyrel PO 200 mg HS PRN Administration Insomnia Venlafaxine HCl 150 mg 03/03/18 12:30 03/11/18 08:06 Effexor Er PO 150 mg DAILY [facility] Administration Venlafaxine HCl 75 mg 03/03/18 21:00 03/11/18 19:53 Effexor Er PO 75 mg QPM [facility] Administration - Physical Exam Abdomen: positive: Other (minimal llq abdominal tenderness) Impression/Plan - Problem List Problem List: complicated perforated diverticulitis that is contained. Less pain on bowel rest, tpn, iv antibiotics. -continue tpn -continue iv antibiotics for another 2 weeks then f/u ct scan of abdomen/pelvis. -placement
[2018-03-12] MEDS: SODIUM CHLORIDE FLUSH 0.9% 10 ML SYRINGE IVP SCH ×3 (00:33→18:16)
[2018-03-12] MEDS: PIPERACILLIN/TAZOBACTAM 3.375 GM in SODIUM CHLORIDE 0.9% MINIBAG 100 ML IV SCH ×4 (01:22→19:09)
[2018-03-12] MEDS: SODIUM CHLORIDE FLUSH 0.9% 10 ML SYRINGE IVP PRN ×2 (01:22→09:15)
[2018-03-12] MEDS: MORPHINE 10 MG/ML VIAL IVP SCH ×7 (02:58→22:51)
[2018-03-12] MEDS: ONDANSETRON 4 MG/2 ML VIAL IVP PRN (06:03)
[2018-03-12] MEDS: THYROID 60 MG TABLET PO SCH (06:10)
[2018-03-12] MEDS: HYDROmorphone 2 MG TABLET PO PRN ×5 (08:07→21:37)
[2018-03-12 09:18] LABS: BASOPHILS # (AUTO) 0.1 10^3/uL (0.0-0.1); EOSINOPHILS # (AUTO) 0.1 10^3/uL (0.0-0.7); EOSINOPHILS % (AUTO) 0.8 %; HGB - HEMOGLOBIN 13.8 g/dL (12.0-16.0); LYMPHOCYTES % (AUTO) 22.7 %; MEAN CORPUSCULAR HEMOGLOBIN 30.8 pg (27.0-31.0); MEAN CORPUSCULAR HGB CONC 33.3 g/dL (32.0-36.0); MEAN CORPUSCULAR VOLUME 92.3 fL (81.0-99.0); MEAN PLATELET VOLUME 8.6 fL (7.9-10.8); MONOCYTES # (AUTO) 0.9 10^3/uL (0.0-1.0); MONOCYTES % (AUTO) 10.2 %; NEUTROPHILS # (AUTO) 5.9 10^3/uL (1.5-6.6); NEUTROPHILS % (AUTO) 65.3 %; PLT - PLATELET COUNT 217 10^3/uL (130-450); RED BLOOD COUNT 4.49 10^6/uL (4.20-5.40); RED CELL DISTRIBUTION WIDTH 13.2 % (12.0-15.0)
[2018-03-12 09:34] LABS: ALBUMIN 3.5 g/dL (3.2-5.5); ALBUMIN/GLOBULIN RATIO 0.9 (1.0-2.2); BILIRUBIN,TOTAL 0.5 mg/dL (0.2-1.0); CALCIUM 9.8 mg/dL (8.5-10.3); CREATININE 0.7 mg/dL (0.4-1.0); TOTAL PROTEIN 7.3 g/dL (6.7-8.2)
[2018-03-12] MEDS: hydrALAZINE 25 MG TABLET PO SCH ×4 (09:43→21:43)
[2018-03-12] MEDS: VENLAFAXINE ER 75 MG CAPSULE PO SCH ×2 (09:43→21:37)
[2018-03-12] MEDS: hydroCHLOROthiazide 25 MG TABLET PO SCH (09:43)
[2018-03-12] MEDS: ENOXAPARIN 40 MG/0.4 ML SYRINGE SUBQ SCH (09:46)
[2018-03-12] MEDS: FAMOTIDINE 20 MG/50 ML 50 ML IV SCH ×2 (09:47→21:36)
[2018-03-12] MEDS: LORazepam 0.5 MG TABLET PO PRN ×2 (09:50→19:15)
[2018-03-12] MEDS: LISINOPRIL 20 MG TABLET PO SCH (10:01)
[2018-03-12] MEDS: SACCHAROMYCES BOULARDII 250 MG CAPSULE PO SCH ×2 (10:01→18:16)
[2018-03-12] MEDS: GENTAMICIN 440 MG in SODIUM CHLORIDE 0.9% 100ML 100 ML IV SCH (11:02)
--- NOTE | 2018-03-12 11:43 | PROVIDER PROGRESS NOTE ---
Subjective - Prog Note Date Prog Note Date: 03/12/18 - Subjective Pt reports feeling: Improved Subjective: pt report she continue to have improvement. today she report no tenderness at her whole quadrant of bowel. No CP, SOB, fever, chill,cough Current Medications - Current Medications Current Medications: Active Medications Baclofen (Lioresal) 20 mg PO TID PRN PRN Reason: Spasms Last Admin: 03/08/18 16:23 Dose: 20 mg Cyclobenzaprine HCl (Flexeril) 10 mg PO QPM PRN PRN Reason: Spasms Last Admin: 03/05/18 15:49 Dose: 10 mg Enoxaparin Sodium (Lovenox) 40 mg SUBQ DAILY ON LICENSE OF [facility] Last Admin: 03/12/18 09:46 Dose: 40 mg Hydralazine HCl (Apresoline) 25 mg PO QID ON LICENSE OF [facility] Last Admin: 03/12/18 09:43 Dose: 25 mg Hydrochlorothiazide (Hydrodiuril) 25 mg PO DAILY ON LICENSE OF [facility] Last Admin: 03/12/18 09:43 Dose: 25 mg Hydromorphone HCl (Dilaudid (Vial)) 2 mg IVP Q2H PRN PRN Reason: Abdominal Pain Last Admin: 03/10/18 18:07 Dose: 2 mg Hydromorphone HCl (Dilaudid) 4 mg PO Q2H PRN PRN Reason: Severe Pain Last Admin: 03/12/18 08:07 Dose: 4 mg Hydromorphone HCl (Dilaudid Inj Carp) 1 mg IVP Q2H PRN PRN Reason: Abdominal Pain Last Admin: 03/11/18 19:16 Dose: 1 mg Piperacillin Sod/Tazobactam (Sod 3.375 gm/ Sodium Chloride) 100 mls @ 200 mls/ hr IV Q6H ON LICENSE OF [facility] Last Infusion: 03/12/18 09:15 Dose: Infused Famotidine (Pepcid 20 Mg/50 Ml) 50 mls @ 100 mls/hr IV BID ON LICENSE OF [facility] Last Infusion: 03/12/18 11:33 Dose: Infused Gentamicin Sulfate 440 mg/ (Sodium Chloride) 111 mls @ 100 mls/hr IV Q24H ON LICENSE OF [facility] Last Admin: 03/12/18 11:02 Dose: 100 mls/hr Multivitamins 10 ml/ Amino Ac/ (Electrol/Dextrose/Calcium) 2,010 mls @ 83 mls/ hr IV Q24H ON LICENSE OF [facility] PRN Reason: Protocol Last Admin: 03/11/18 18:44 Dose: 83 mls/hr Fat Emulsion Intravenous (Intralipid 20%) 250 mls @ 21 mls/hr IV Q24H ON LICENSE OF [facility] Last Infusion: 03/12/18 06:51 Dose: Infused Chromium/Copper/Manganese/Seleni/Zn 1 ml/ Sodium Chloride 51 mls @ 4.25 mls/hr IV Q24H ON LICENSE OF [facility] Last Infusion: 03/12/18 06:08 Dose: Infused Dextrose/Sodium Chloride (D5.45ns) 1,000 mls @ 30 mls/hr IV .[id number] ON LICENSE OF [facility] PRN Reason: TKO Last Admin: 03/11/18 08:11 Dose: 30 mls/hr Lisinopril (Zestril) 20 mg PO DAILY ON LICENSE OF [facility] Last Admin: 03/12/18 10:01 Dose: 20 mg Lorazepam (Ativan) 1 mg PO Q6H PRN PRN Reason: Anxiety Last Admin: 03/12/18 09:50 Dose: 1 mg Morphine Sulfate (Roxanol) 10 mg PO Q2HR PRN PRN Reason: PAIN Last Admin: 03/04/18 06:46 Dose: 10 mg Morphine Sulfate (Morphine) 10 mg IVP Q4H ON LICENSE OF [facility] Last Admin: 03/12/18 11:10 Dose: Not Given Ondansetron HCl (Zofran Odt) 4 mg TL Q4HR PRN PRN Reason: Nausea / Vomiting Last Admin: 03/11/18 18:40 Dose: 4 mg Ondansetron HCl (Zofran Inj) 4 mg IVP Q4HR PRN PRN Reason: Nausea / Vomiting Last Admin: 03/12/18 06:03 Dose: 4 mg Prochlorperazine Edisylate (Compazine Inj) 10 mg IVP Q4HR PRN PRN Reason: Nausea / Vomiting Last Admin: 03/12/18 01:22 Dose: 10 mg Saccharomyces Boulardii (Florastor) 250 mg PO BIDWM ON LICENSE OF [facility] Last Admin: 03/12/18 10:01 Dose: 250 mg Sodium Chloride (Normal Saline Flush 0.9%) 10 ml IVP 0100,0900,1700 ON LICENSE OF [facility] Last Admin: 03/12/18 11:10 Dose: Not Given Sodium Chloride (Normal Saline Flush 0.9%) 10 ml IVP PRN PRN PRN Reason: NEEDED PER PROVIDER ORDERS Last Admin: 03/12/18 01:22 Dose: 10 ml Sodium Chloride (Normal Saline Flush 0.9%) 20 ml IVP PRN PRN PRN Reason: After Blood Draw Last Admin: 03/12/18 09:15 Dose: 20 ml Thyroid ([place] Thyroid) 120 mg PO QDAC ON LICENSE OF [facility] Last Admin: 03/12/18 06:10 Dose: 120 mg Trazodone HCl (Desyrel) 200 mg PO HS PRN PRN Reason: Insomnia Last Admin: 03/10/18 21:58 Dose: 200 mg Venlafaxine HCl (Effexor Er) 150 mg PO DAILY ON LICENSE OF [facility] Last Admin: 03/12/18 09:43 Dose: 150 mg Venlafaxine HCl (Effexor Er) 75 mg PO QPM ON LICENSE OF [facility] Last Admin: 03/11/18 19:53 Dose: 75 mg Venlafaxine HCl [Venlafaxine HCl ER] 75 mg PO QPM 06/17/17 hydroCHLOROthiazide [Hydrochlorothiazide] 25 mg PO DAILY 08/10/17 Albuterol Sulfate [Proair Respiclick] 2 puffs INH Q4H PRN 03/02/18 Baclofen [Lioresal] 20 mg PO TID PRN 03/02/18 Cyclobenzaprine [Flexeril] 10 mg PO QPM PRN 03/02/18 Morphine Sulfate [Morphine Sulfate ER] 30 mg PO QPM 03/02/18 Ondansetron HCl [Zofran] 4 - 8 mg PO DAILY PRN 03/02/18 Oxycodone HCl [Roxicodone] 15 mg PO Q4H PRN MDD 5 tabs 03/02/18 Thyroid,Pork [[place] Thyroid] 120 mg PO QDAC 03/02/18 Venlafaxine HCl [Venlafaxine HCl ER] 150 mg PO DAILY 03/02/18 traZODone [Desyrel] 200 mg PO HS PRN 03/02/18 Objective - Vital Signs/Intake & Output Reviewed Vital Signs: Yes Vital Signs: Vital Signs x48h Temp Pulse Resp BP Pulse Ox 03/12/18 08:04 36.9 C 97 16 141/61 H 98 Intake & Output: Intake & Output 0703/10/18 03/11/18 03/12/18 23:59 23:59 23:59 23:59 Intake Total 4823.676 5158.78 4247.283 698 Output Total 1450 100 3 Balance 3373.676 5058.78 4244.283 698 - Objective General Appearance: positive: No acute distress, Alert. negative: Lethargic Eyes Bilateral: positive: Normal inspection, PERRL, No lid inflammation, Conjunctivae nml ENT: positive: ENT inspection nml, Pharynx nml, No signs of dehydration. negative: Purulent nasal drainage, Pharyngeal erythema, Oral lesions Neck: positive: Nml inspection, Thyroid nml, No JVD, Trachea midline. negative : Thyromegaly, Lymphadenopathy (R), Lymphadenopathy (L), Stiff neck, Carotid bruit, Swelling/bruising, Tracheal deviation Respiratory: positive: Chest non-tender, No respiratory distress, Breath sounds nml. negative: Wheezes, Rales, Rhonchi Cardiovascular: positive: Regular rate & rhythm, No murmur, No gallop. negative : Irregularly irregular, Extrasystoles, Tachycardia, Bradycardia, JVD present, Systolic murmur, Diastolic murmur Peripheral Pulses: 2+ Radial (R), 2+ Radial (L), 2+ Dorsalis pedis (R), 2+ Dorsalis pedis (L) Abdomen: positive: Non-tender, No organomegaly, Nml bowel sounds, No distention. negative: Tenderness, Guarding, Rebound Back: positive: Nml inspection. negative: CVA tenderness (R), CVA tenderness (L ) Skin: positive: Color nml, No rash, Warm, Dry. negative: Cyanosis, Diaphoresis , Pallor Extremities: positive: Non-tender, Full ROM, Nml appearance. negative: Calf tenderness, Joint swelling, Zac's sign/cords Neurologic/Psychiatric: positive: Oriented x3, Motor nml, Sensation nml, Mood/ affect nml. negative: Weakness, Sensory loss, Facial droop, Slurred/abnml speech, Depressed mood/affect - Lab Results Fish Bones: 03/12/18 09:10 03/12/18 09:10 Other Labs: Lab Results x24hrs 03/12/18 03/12/18 03/12/18 Range/Units 11:29 09:10 09:10 WBC 9.0 (4.8-10.8) x10^3/uL RBC 4.49 (4.20-5.40) 10^6/uL Hgb 13.8 (12.0-16.0) g/dL Hct 41.5 (37.0-47.0) % MCV 92.3 (81.0-99.0) fL MCH 30.8 (27.0-31.0) pg MCHC 33.3 (32.0-36.0) g/dL RDW 13.2 (12.0-15.0) % Plt Count 217 (130-450) 10^3/uL MPV 8.6 (7.9-10.8) fL Neut # (Auto) 5.9 (1.5-6.6) 10^3/uL Lymph # (Auto) 2.0 (1.5-3.5) 10^3/uL [place] # (Auto) 0.9 (0.0-1.0) 10^3/uL Eos # (Auto) 0.1 (0.0-0.7) 10^3/uL Baso # (Auto) 0.1 (0.0-0.1) 10^3/uL Absolute Nucleated RBC 0.00 x10^3/uL Nucleated RBC % 0.0 /100WBC Sodium 135 (135-145) mmol/L Potassium 4.0 (3.5-5.0) mmol/L Chloride 102 (101-111) mmol/L Carbon Dioxide 24 (21-32) mmol/L Anion Gap 9.0 (6-13) BUN 18 (6-20) mg/dL Creatinine 0.7 (0.4-1.0) mg/dL Estimated GFR (MDRD) 86 L (>89) Glucose 347 H (70-100) mg/dL POC Whole Bld Glucose 140 H (70 - 100) mg/dL Calcium 9.8 (8.5-10.3) mg/dL Total Bilirubin 0.5 (0.2-1.0) mg/dL AST 18 (10-42) IU/L ALT 20 (10-60) IU/L Alkaline Phosphatase 62 (42-121) IU/L Total Protein 7.3 (6.7-8.2) g/dL Albumin 3.5 (3.2-5.5) g/dL Globulin 3.8 (2.1-4.2) g/dL Albumin/Globulin Ratio 0.9 L (1.0-2.2) 03/12/18 03/11/18 03/11/18 Range/Units 05:52 23:56 19:44 WBC (4.8-10.8) x10^3/uL RBC (4.20-5.40) 10^6/uL Hgb (12.0-16.0) g/dL Hct (37.0-47.0) % MCV (81.0-99.0) fL MCH (27.0-31.0) pg MCHC (32.0-36.0) g/dL RDW (12.0-15.0) % Plt Count (130-450) 10^3/uL MPV (7.9-10.8) fL Neut # (Auto) (1.5-6.6) 10^3/uL Lymph # (Auto) (1.5-3.5) 10^3/uL [place] # (Auto) (0.0-1.0) 10^3/uL Eos # (Auto) (0.0-0.7) 10^3/uL Baso # (Auto) (0.0-0.1) 10^3/uL Absolute Nucleated RBC x10^3/uL Nucleated RBC % /100WBC Sodium (135-145) mmol/L Potassium (3.5-5.0) mmol/L Chloride (101-111) mmol/L Carbon Dioxide (21-32) mmol/L Anion Gap (6-13) BUN (6-20) mg/dL Creatinine (0.4-1.0) mg/dL Estimated GFR (MDRD) (>89) Glucose (70-100) mg/dL POC Whole Bld Glucose 154 H 203 H 196 H (70 - 100) mg/dL Calcium (8.5-10.3) mg/dL Total Bilirubin (0.2-1.0) mg/dL AST (10-42) IU/L ALT (10-60) IU/L Alkaline Phosphatase (42-121) IU/L Total Protein (6.7-8.2) g/dL Albumin (3.2-5.5) g/dL Globulin (2.1-4.2) g/dL Albumin/Globulin Ratio (1.0-2.2) ABX Reporting Has patient been on IV antibiotics over the past 48 hours?: Yes Assessment/Plan - Problem List (1) Diverticulitis Impression: (1) Hypertension Impression: stable, continue current bp medications vital monitor 03/11 stable, continue Lisinopril, HCTZ and hydralazine continue vital monitor stable, continue Lisinopril, HCTZ Blood pressure today is 147/81, and is becoming out of the range of control. Lisinopril 20 mg PO daily and HCTZ 25 mg PO daily continue. I am adding Hydralazine low dose TID orally to control her blood pressure. Plan: Continue meds and monitor VS. (2) Sigmoid diverticulitis Impression: pt report she's pain is better control. no n/v/d today. no tenderness on her bowel. follow up surgeon, admission provider's discharge plan 03/11 pt continue report her abdominal pain is improved. discuss with Dr. Gilmar Newman, continue follow up surgeon bowel rest, continue TPN, and antibiotics continue pain control sigmoid diverticulitis contained perforation follow up surgeon, bowel rest, continue TPN, and antibiotics continue pain control The patient continues to have pain due to her current condition. She continues on morphine/dilaudid as needed. General surgery has arranged TPN infusions that is being given via PICC. She is encouraged to undergo an elective surgery after this acute illness to remove part of her colon. Plan: Continue IV dilaudid, IV morphine and TPN. (3) Chronic back pain Impression: continue pain control The patient has had at least 7 prior back surgeries per chart review. She continues on morphine, dilaudid and baclofen. She notes that her back pain is well controlled and the abdominal pain has taken over. She continues to ambulate in the hallways. Plan: Continue IV dilaudid and IV morphine. (4) Hypothyroidism Impression: The patient takes Tyroid Armor at home at 120 mg, which is continued here. A TSH was 6.18 on 03/04/18. Plan: Continue and consider changing to IV form if emesis is noted. (5) Depression Impression: The patient is prescribed Effexor, and a muscle relaxer at home, and these continue here. She has major depressive disorder as per chart review. She certainly does not demonstrate a flat affect when speaking to me. Plan: Monitor mood and overall wellness.
[2018-03-12] MEDS: DEXTROSE 5%-0.45% NACL 1,000 ML IV SCH (12:07)
[2018-03-12] MEDS: ONDANSETRON ODT 4 MG TABLET TL PRN ×2 (16:17→21:37)
[2018-03-12] MEDS: TRACE ELEMENTS V CONC 1 ML in SODIUM CHLORIDE 0.9% 50 ML IV SCH (19:01)
[2018-03-12] MEDS: FAT EMULSION 20% 250 ML IV SCH (19:01)
[2018-03-12] MEDS: TPN (CLINIMIX E 5/15) 2,000 ML with MULTIVITAMIN 10 ML IV SCH ×2 (19:02)
--- NOTE | 2018-03-12 21:34 | PROVIDER PROGRESS NOTE ---
Subjective - General Admit Date: 03/01/18 - Review of Systems Pulmonary: positive: No symptoms Cardiovascular: positive: No symptoms Gastrointestinal: positive: Abdominal pain (She is having less abdominal pain) All Other Systems: positive: Reviewed and negative Objective - Patient Data Vital Signs: Vital Signs x48h Temp Pulse Resp BP Pulse Ox 03/12/18 15:46 36.8 C 84 16 146/81 H 99 Weight: Weight 03/10/18 03/11/18 03/12/18 23:59 23:59 23:59 Weight (kg) 79.5 kg 80 kg 76 kg Intake & Output: Intake and Output Totals x24h 03/10/18 03/11/18 03/12/18 23:59 23:59 23:59 Intake Total 5158.78 4247.283 4275 Output Total 100 3 Balance 5058.78 4244.283 4275 - Lab Results Lab Results: 03/12/18 09:10 03/12/18 09:10 Other Lab Results: Lab Results x24hrs 03/12/18 03/12/18 03/12/18 Range/Units 17:45 11:29 09:10 WBC (4.8-10.8) x10^3/uL RBC (4.20-5.40) 10^6/uL Hgb (12.0-16.0) g/dL Hct (37.0-47.0) % MCV (81.0-99.0) fL MCH (27.0-31.0) pg MCHC (32.0-36.0) g/dL RDW (12.0-15.0) % Plt Count (130-450) 10^3/uL MPV (7.9-10.8) fL Neut # (Auto) (1.5-6.6) 10^3/uL Lymph # (Auto) (1.5-3.5) 10^3/uL [place] # (Auto) (0.0-1.0) 10^3/uL Eos # (Auto) (0.0-0.7) 10^3/uL Baso # (Auto) (0.0-0.1) 10^3/uL Absolute Nucleated RBC x10^3/uL Nucleated RBC % /100WBC Sodium 135 (135-145) mmol/L Potassium 4.0 (3.5-5.0) mmol/L Chloride 102 (101-111) mmol/L Carbon Dioxide 24 (21-32) mmol/L Anion Gap 9.0 (6-13) BUN 18 (6-20) mg/dL Creatinine 0.7 (0.4-1.0) mg/dL Estimated GFR (MDRD) 86 L (>89) Glucose 347 H (70-100) mg/dL POC Whole Bld Glucose 162 H 140 H (70 - 100) mg/dL Calcium 9.8 (8.5-10.3) mg/dL Total Bilirubin 0.5 (0.2-1.0) mg/dL AST 18 (10-42) IU/L ALT 20 (10-60) IU/L Alkaline Phosphatase 62 (42-121) IU/L Total Protein 7.3 (6.7-8.2) g/dL Albumin 3.5 (3.2-5.5) g/dL Globulin 3.8 (2.1-4.2) g/dL Albumin/Globulin Ratio 0.9 L (1.0-2.2) 03/12/18 03/12/18 03/11/18 Range/Units 09:10 05:52 23:56 WBC 9.0 (4.8-10.8) x10^3/uL RBC 4.49 (4.20-5.40) 10^6/uL Hgb 13.8 (12.0-16.0) g/dL Hct 41.5 (37.0-47.0) % MCV 92.3 (81.0-99.0) fL MCH 30.8 (27.0-31.0) pg MCHC 33.3 (32.0-36.0) g/dL RDW 13.2 (12.0-15.0) % Plt Count 217 (130-450) 10^3/uL MPV 8.6 (7.9-10.8) fL Neut # (Auto) 5.9 (1.5-6.6) 10^3/uL Lymph # (Auto) 2.0 (1.5-3.5) 10^3/uL [place] # (Auto) 0.9 (0.0-1.0) 10^3/uL Eos # (Auto) 0.1 (0.0-0.7) 10^3/uL Baso # (Auto) 0.1 (0.0-0.1) 10^3/uL Absolute Nucleated RBC 0.00 x10^3/uL Nucleated RBC % 0.0 /100WBC Sodium (135-145) mmol/L Potassium (3.5-5.0) mmol/L Chloride (101-111) mmol/L Carbon Dioxide (21-32) mmol/L Anion Gap (6-13) BUN (6-20) mg/dL Creatinine (0.4-1.0) mg/dL Estimated GFR (MDRD) (>89) Glucose (70-100) mg/dL POC Whole Bld Glucose 154 H 203 H (70 - 100) mg/dL Calcium (8.5-10.3) mg/dL Total Bilirubin (0.2-1.0) mg/dL AST (10-42) IU/L ALT (10-60) IU/L Alkaline Phosphatase (42-121) IU/L Total Protein (6.7-8.2) g/dL Albumin (3.2-5.5) g/dL Globulin (2.1-4.2) g/dL Albumin/Globulin Ratio (1.0-2.2) - Current Medications Current Medications: Current Medications Generic Name Dose Route Start Last Admin Trade Name Freq PRN Reason Stop Dose Admin Baclofen 20 mg 03/03/18 11:19 03/08/18 16:23 Lioresal PO 20 mg TID PRN Administration Spasms Cyclobenzaprine HCl 10 mg 03/03/18 21:00 03/05/18 15:49 Flexeril PO 10 mg QPM PRN Administration Spasms Enoxaparin Sodium 40 mg 03/01/18 21:00 03/12/18 09:46 Lovenox SUBQ 40 mg DAILY TERESA Administration Hydralazine HCl 25 mg 03/11/18 10:00 03/12/18 18:16 Apresoline PO 25 mg QID TERESA Administration Hydrochlorothiazide 25 mg 03/04/18 09:00 03/12/18 09:43 Hydrodiuril PO 25 mg DAILY TERESA Administration Hydromorphone HCl 2 mg 03/01/18 19:52 03/10/18 18:07 Dilaudid (Vial) IVP 2 mg Q2H PRN Administration Abdominal Pain Hydromorphone HCl 4 mg 03/04/18 01:56 03/12/18 19:15 Dilaudid PO 4 mg Q2H PRN Administration Severe Pain Hydromorphone HCl 1 mg 03/10/18 19:10 03/11/18 19:16 Dilaudid Inj Carp IVP 1 mg Q2H PRN Administration Abdominal Pain Piperacillin Sod/Tazobactam 100 mls @ 200 mls/hr 03/02/18 02:00 03/12/18 19: 43 Sod 3.375 gm/ Sodium Chloride IV Infused Q6H TERESA Infusion Famotidine 50 mls @ 100 mls/hr 03/02/18 21:00 03/12/18 11:33 Pepcid 20 Mg/50 Ml IV Infused BID TERESA Infusion Gentamicin Sulfate 440 mg/ 111 mls @ 100 mls/hr 03/04/18 11:00 03/12/18 12:13 Sodium Chloride IV Infused Q24H TERESA Infusion Multivitamins 10 ml/ Amino Ac/ 2,010 mls @ 83 mls/hr 03/06/18 19:00 03/12/18 19:02 Electrol/Dextrose/Calcium IV 83 mls/hr Q24H TERESA Administration Protocol Fat Emulsion Intravenous 250 mls @ 21 mls/hr 03/06/18 19:00 03/12/18 19:01 Intralipid 20% IV 21 mls/hr Q24H TERESA Administration Chromium/Copper/Manganese/ 51 mls @ 4.25 mls/hr 03/06/18 19:00 03/12/18 19:01 Seleni/Zn 1 ml/ Sodium IV 4.25 mls/hr Chloride Q24H TERESA Administration Dextrose/Sodium Chloride 1,000 mls @ 30 mls/hr 03/06/18 21:00 03/12/18 12:07 D5.45ns IV 30 mls/hr .[id number] TERESA Administration TKO Lisinopril 20 mg 03/01/18 21:00 03/12/18 10:01 Zestril PO 20 mg DAILY TERESA Administration Lorazepam 1 mg 03/06/18 01:08 03/12/18 19:15 Ativan PO 1 mg Q6H PRN Administration Anxiety Morphine Sulfate 10 mg 03/04/18 01:55 03/04/18 06:46 Roxanol PO 10 mg Q2HR PRN Administration PAIN Morphine Sulfate 10 mg 03/10/18 02:00 03/12/18 18:16 Morphine IVP 10 mg Q4H TERESA Administration Ondansetron HCl 4 mg 03/02/18 00:17 03/12/18 16:17 Zofran Odt TL 4 mg Q4HR PRN Administration Nausea / Vomiting Ondansetron HCl 4 mg 03/11/18 18:56 03/12/18 06:03 Zofran Inj IVP 4 mg Q4HR PRN Administration Nausea / Vomiting Prochlorperazine Edisylate 10 mg 03/11/18 20:54 03/12/18 01:22 Compazine Inj IVP 10 mg Q4HR PRN Administration Nausea / Vomiting Saccharomyces Boulardii 250 mg 03/12/18 10:00 03/12/18 18:16 Florastor PO 250 mg BIDWM TERESA Administration Sodium Chloride 10 ml 03/02/18 01:00 03/12/18 18:16 Normal Saline Flush 0.9% IVP 10 ml 0100,0900,1700 TERESA Administration Sodium Chloride 10 ml 03/01/18 19:46 03/12/18 01:22 Normal Saline Flush 0.9% IVP 10 ml PRN PRN Administration NEEDED PER PROVIDER ORDERS Sodium Chloride 20 ml 03/05/18 17:26 03/12/18 09:15 Normal Saline Flush 0.9% IVP 20 ml PRN PRN Administration After Blood Draw Thyroid 120 mg 03/04/18 07:00 03/12/18 06:10 [place] Thyroid PO 120 mg QDAC TERESA Administration Trazodone HCl 200 mg 03/03/18 21:00 03/10/18 21:58 Desyrel PO 200 mg HS PRN Administration Insomnia Venlafaxine HCl 150 mg 03/03/18 12:30 03/12/18 09:43 Effexor Er PO 150 mg DAILY TERESA Administration Venlafaxine HCl 75 mg 03/03/18 21:00 03/11/18 19:53 Effexor Er PO 75 mg QPM TERESA Administration Impression/Plan - Problem List Problem List: complicated diverticulitis improving on iv antibiotics -bowel rest and tpn -liquids only -iv antibiotics -placement
[2018-03-12] MEDS: traZODone 50 MG TABLET PO PRN (21:36)
--- NOTE | 2018-03-12 21:43 | PROVIDER PROGRESS NOTE ---
Subjective - General Admit Date: 03/01/18 - Review of Systems Pulmonary: positive: No symptoms Cardiovascular: positive: No symptoms Gastrointestinal: positive: Abdominal pain (She is having less abdominal pain) All Other Systems: positive: Reviewed and negative Objective - Patient Data Vital Signs: Vital Signs x48h Temp Pulse Resp BP Pulse Ox 03/12/18 15:46 36.8 C 84 16 146/81 H 99 Weight: Weight 03/10/18 03/11/18 03/12/18 23:59 23:59 23:59 Weight (kg) 79.5 kg 80 kg 76 kg Intake & Output: Intake and Output Totals x24h 03/10/18 03/11/18 03/12/18 23:59 23:59 23:59 Intake Total 5158.78 4247.283 4275 Output Total 100 3 Balance 5058.78 4244.283 4275 - Lab Results Lab Results: 03/12/18 09:10 03/12/18 09:10 Other Lab Results: Lab Results x24hrs 03/12/18 03/12/18 03/12/18 Range/Units 17:45 11:29 09:10 WBC (4.8-10.8) x10^3/uL RBC (4.20-5.40) 10^6/uL Hgb (12.0-16.0) g/dL Hct (37.0-47.0) % MCV (81.0-99.0) fL MCH (27.0-31.0) pg MCHC (32.0-36.0) g/dL RDW (12.0-15.0) % Plt Count (130-450) 10^3/uL MPV (7.9-10.8) fL Neut # (Auto) (1.5-6.6) 10^3/uL Lymph # (Auto) (1.5-3.5) 10^3/uL [place] # (Auto) (0.0-1.0) 10^3/uL Eos # (Auto) (0.0-0.7) 10^3/uL Baso # (Auto) (0.0-0.1) 10^3/uL Absolute Nucleated RBC x10^3/uL Nucleated RBC % /100WBC Sodium 135 (135-145) mmol/L Potassium 4.0 (3.5-5.0) mmol/L Chloride 102 (101-111) mmol/L Carbon Dioxide 24 (21-32) mmol/L Anion Gap 9.0 (6-13) BUN 18 (6-20) mg/dL Creatinine 0.7 (0.4-1.0) mg/dL Estimated GFR (MDRD) 86 L (>89) Glucose 347 H (70-100) mg/dL POC Whole Bld Glucose 162 H 140 H (70 - 100) mg/dL Calcium 9.8 (8.5-10.3) mg/dL Total Bilirubin 0.5 (0.2-1.0) mg/dL AST 18 (10-42) IU/L ALT 20 (10-60) IU/L Alkaline Phosphatase 62 (42-121) IU/L Total Protein 7.3 (6.7-8.2) g/dL Albumin 3.5 (3.2-5.5) g/dL Globulin 3.8 (2.1-4.2) g/dL Albumin/Globulin Ratio 0.9 L (1.0-2.2) 03/12/18 03/12/18 03/11/18 Range/Units 09:10 05:52 23:56 WBC 9.0 (4.8-10.8) x10^3/uL RBC 4.49 (4.20-5.40) 10^6/uL Hgb 13.8 (12.0-16.0) g/dL Hct 41.5 (37.0-47.0) % MCV 92.3 (81.0-99.0) fL MCH 30.8 (27.0-31.0) pg MCHC 33.3 (32.0-36.0) g/dL RDW 13.2 (12.0-15.0) % Plt Count 217 (130-450) 10^3/uL MPV 8.6 (7.9-10.8) fL Neut # (Auto) 5.9 (1.5-6.6) 10^3/uL Lymph # (Auto) 2.0 (1.5-3.5) 10^3/uL [place] # (Auto) 0.9 (0.0-1.0) 10^3/uL Eos # (Auto) 0.1 (0.0-0.7) 10^3/uL Baso # (Auto) 0.1 (0.0-0.1) 10^3/uL Absolute Nucleated RBC 0.00 x10^3/uL Nucleated RBC % 0.0 /100WBC Sodium (135-145) mmol/L Potassium (3.5-5.0) mmol/L Chloride (101-111) mmol/L Carbon Dioxide (21-32) mmol/L Anion Gap (6-13) BUN (6-20) mg/dL Creatinine (0.4-1.0) mg/dL Estimated GFR (MDRD) (>89) Glucose (70-100) mg/dL POC Whole Bld Glucose 154 H 203 H (70 - 100) mg/dL Calcium (8.5-10.3) mg/dL Total Bilirubin (0.2-1.0) mg/dL AST (10-42) IU/L ALT (10-60) IU/L Alkaline Phosphatase (42-121) IU/L Total Protein (6.7-8.2) g/dL Albumin (3.2-5.5) g/dL Globulin (2.1-4.2) g/dL Albumin/Globulin Ratio (1.0-2.2) - Current Medications Current Medications: Current Medications Generic Name Dose Route Start Last Admin Trade Name Freq PRN Reason Stop Dose Admin Baclofen 20 mg 03/03/18 11:19 03/08/18 16:23 Lioresal PO 20 mg TID PRN Administration Spasms Cyclobenzaprine HCl 10 mg 03/03/18 21:00 03/05/18 15:49 Flexeril PO 10 mg QPM PRN Administration Spasms Enoxaparin Sodium 40 mg 03/01/18 21:00 03/12/18 09:46 Lovenox SUBQ 40 mg DAILY TERESA Administration Hydralazine HCl 25 mg 03/11/18 10:00 03/12/18 18:16 Apresoline PO 25 mg QID TERESA Administration Hydrochlorothiazide 25 mg 03/04/18 09:00 03/12/18 09:43 Hydrodiuril PO 25 mg DAILY TERESA Administration Hydromorphone HCl 2 mg 03/01/18 19:52 03/10/18 18:07 Dilaudid (Vial) IVP 2 mg Q2H PRN Administration Abdominal Pain Hydromorphone HCl 4 mg 03/04/18 01:56 03/12/18 21:37 Dilaudid PO 4 mg Q2H PRN Administration Severe Pain Hydromorphone HCl 1 mg 03/10/18 19:10 03/11/18 19:16 Dilaudid Inj Carp IVP 1 mg Q2H PRN Administration Abdominal Pain Piperacillin Sod/Tazobactam 100 mls @ 200 mls/hr 03/02/18 02:00 03/12/18 19: 43 Sod 3.375 gm/ Sodium Chloride IV Infused Q6H TERESA Infusion Famotidine 50 mls @ 100 mls/hr 03/02/18 21:00 03/12/18 21:36 Pepcid 20 Mg/50 Ml IV 100 mls/hr BID TERESA Administration Gentamicin Sulfate 440 mg/ 111 mls @ 100 mls/hr 03/04/18 11:00 03/12/18 12:13 Sodium Chloride IV Infused Q24H TERESA Infusion Multivitamins 10 ml/ Amino Ac/ 2,010 mls @ 83 mls/hr 03/06/18 19:00 03/12/18 19:02 Electrol/Dextrose/Calcium IV 83 mls/hr Q24H TERESA Administration Protocol Fat Emulsion Intravenous 250 mls @ 21 mls/hr 03/06/18 19:00 03/12/18 19:01 Intralipid 20% IV 21 mls/hr Q24H TERESA Administration Chromium/Copper/Manganese/ 51 mls @ 4.25 mls/hr 03/06/18 19:00 03/12/18 19:01 Seleni/Zn 1 ml/ Sodium IV 4.25 mls/hr Chloride Q24H TERESA Administration Dextrose/Sodium Chloride 1,000 mls @ 30 mls/hr 03/06/18 21:00 03/12/18 12:07 D5.45ns IV 30 mls/hr .[id number] TERESA Administration TKO Lisinopril 20 mg 03/01/18 21:00 03/12/18 10:01 Zestril PO 20 mg DAILY TEERSA Administration Lorazepam 1 mg 03/06/18 01:08 03/12/18 19:15 Ativan PO 1 mg Q6H PRN Administration Anxiety Morphine Sulfate 10 mg 03/04/18 01:55 03/04/18 06:46 Roxanol PO 10 mg Q2HR PRN Administration PAIN Morphine Sulfate 10 mg 03/10/18 02:00 03/12/18 18:16 Morphine IVP 10 mg Q4H TERESA Administration Ondansetron HCl 4 mg 03/02/18 00:17 03/12/18 21:37 Zofran Odt TL 4 mg Q4HR PRN Administration Nausea / Vomiting Ondansetron HCl 4 mg 03/11/18 18:56 03/12/18 06:03 Zofran Inj IVP 4 mg Q4HR PRN Administration Nausea / Vomiting Prochlorperazine Edisylate 10 mg 03/11/18 20:54 03/12/18 01:22 Compazine Inj IVP 10 mg Q4HR PRN Administration Nausea / Vomiting Saccharomyces Boulardii 250 mg 03/12/18 10:00 03/12/18 18:16 Florastor PO 250 mg BIDWM TERESA Administration Sodium Chloride 10 ml 03/02/18 01:00 03/12/18 18:16 Normal Saline Flush 0.9% IVP 10 ml 0100,0900,1700 TERESA Administration Sodium Chloride 10 ml 03/01/18 19:46 03/12/18 01:22 Normal Saline Flush 0.9% IVP 10 ml PRN PRN Administration NEEDED PER PROVIDER ORDERS Sodium Chloride 20 ml 03/05/18 17:26 03/12/18 09:15 Normal Saline Flush 0.9% IVP 20 ml PRN PRN Administration After Blood Draw Thyroid 120 mg 03/04/18 07:00 03/12/18 06:10 [place] Thyroid PO 120 mg QDAC TERESA Administration Trazodone HCl 200 mg 03/03/18 21:00 03/12/18 21:36 Desyrel PO 200 mg HS PRN Administration Insomnia Venlafaxine HCl 150 mg 03/03/18 12:30 03/12/18 09:43 Effexor Er PO 150 mg DAILY TERESA Administration Venlafaxine HCl 75 mg 03/03/18 21:00 03/12/18 21:37 Effexor Er PO 75 mg QPM TERESA Administration - Physical Exam Abdomen: positive: Non-tender Impression/Plan - Problem List Problem List: Diverticultitis with contained perforation. Symptoms continue to improve. Will start full liquids. If tolerates without increase abdominal pain, then would be able to d/c tpn. -full liquids -iv antibiotics
[2018-03-13] MEDS: SODIUM CHLORIDE FLUSH 0.9% 10 ML SYRINGE IVP SCH ×2 (00:06→08:31)
[2018-03-13] MEDS: PIPERACILLIN/TAZOBACTAM 3.375 GM in SODIUM CHLORIDE 0.9% MINIBAG 100 ML IV SCH ×2 (02:22→08:30)
[2018-03-13] MEDS: MORPHINE 10 MG/ML VIAL IVP SCH ×2 (02:38→05:42)
[2018-03-13] MEDS: THYROID 60 MG TABLET PO SCH (06:01)
[2018-03-13] MEDS: SODIUM CHLORIDE FLUSH 0.9% 10 ML SYRINGE IVP PRN ×4 (06:02→12:59)
[2018-03-13 06:28] LABS: BASOPHILS # (AUTO) 0.1 10^3/uL (0.0-0.1); BASOPHILS % (AUTO) 0.6 %; EOSINOPHILS # (AUTO) 0.4 10^3/uL (0.0-0.7); EOSINOPHILS % (AUTO) 4.9 %; HGB - HEMOGLOBIN 13.3 g/dL (12.0-16.0); LYMPHOCYTES % (AUTO) 36.1 %; MEAN CORPUSCULAR HGB CONC 33.7 g/dL (32.0-36.0); MEAN CORPUSCULAR VOLUME 92.2 fL (81.0-99.0); MEAN PLATELET VOLUME 8.8 fL (7.9-10.8); MONOCYTES % (AUTO) 12.2 %; NEUTROPHILS # (AUTO) 3.8 10^3/uL (1.5-6.6); NEUTROPHILS % (AUTO) 46.2 %; PLT - PLATELET COUNT 186 10^3/uL (130-450); RED BLOOD COUNT 4.29 10^6/uL (4.20-5.40); RED CELL DISTRIBUTION WIDTH 13.2 % (12.0-15.0); WHITE BLOOD COUNT 8.3 x10^3/uL (4.8-10.8)
[2018-03-13 06:36] LABS: ALBUMIN 3.2 g/dL (3.2-5.5); ALBUMIN/GLOBULIN RATIO 0.9 (1.0-2.2); BILIRUBIN,TOTAL 0.6 mg/dL (0.2-1.0); CALCIUM 9.4 mg/dL (8.5-10.3); CREATININE 0.8 mg/dL (0.4-1.0); TOTAL PROTEIN 6.7 g/dL (6.7-8.2)
[2018-03-13] MEDS: SACCHAROMYCES BOULARDII 250 MG CAPSULE PO SCH (08:31)
[2018-03-13] MEDS: HYDROmorphone 2 MG TABLET PO PRN (08:31)
[2018-03-13] MEDS: VENLAFAXINE ER 75 MG CAPSULE PO SCH (08:31)
[2018-03-13] MEDS: ENOXAPARIN 40 MG/0.4 ML SYRINGE SUBQ SCH (08:32)
[2018-03-13] MEDS: FAMOTIDINE 20 MG/50 ML 50 ML IV SCH (08:32)
[2018-03-13] MEDS ORDERED: POTASSIUM CHLORIDE 20 MEQ TABLET PO ONE (10:10)
[2018-03-13] MEDS ORDERED: SODIUM CHLORIDE 0.9% 500 ML IV ONE (10:11)
[2018-03-13] MEDS ORDERED: MORPHINE ER 15 MG TABLET PO STA (10:27)
[2018-03-13] MEDS ORDERED: oxyCODONE 5 MG TABLET PO PRN (10:28)
[2018-03-13] MEDS: LISINOPRIL 20 MG TABLET PO SCH (10:44)
[2018-03-13] MEDS: hydroCHLOROthiazide 25 MG TABLET PO SCH (10:44)
[2018-03-13] MEDS: GENTAMICIN 440 MG in SODIUM CHLORIDE 0.9% 100ML 100 ML IV SCH (10:53)
--- NOTE | 2018-03-13 11:49 | Discharge Plan ---
"Discharge Plan for SNF / ANTOINETTE - DC Plan and Transition Orders Disposition: 03 SNF DC/Xfer Condition: Stable SNF Transition Orders: Admit to: [[facility]] under the care of [Taneshal] Discharge Diagnosis: [Diverticulitis with contained perforation (improving, surgery planned in near future/ Dr. Gilmar Newman will determine timing, -Chronic Low back pain - Hypertension, -Asthma , - Hypothyroidism, - Hx ofBreast Cancer, -Depression Anxiety, ADD/ADHD -OA] Medicare Certification: I certify that [facility] long-term care is medically necessary on a continuing basis for any of the conditions for which she/he is receiving care during hospitalization. Notify PCP of admission and forward orders to primary provider for signature. Weight on admission House Bowel Program: [Yes] If no BM after 2 days, nurse may give M.O.M. 30ml PO PRN and /or ducolax Supp 1 CT and /or SANDRINE 250mg P.O., and/or senna 1-2 tabs PO. On day 3 nurse may give repeat above order until residents constipation is resolved. Immunizations: Annual Influenza Vaccine: [Yes]. (between May 09 and December 06.) Unless allergy or already given Two-Step PPD: [Yes] per [facility] [id number] or appropriate documentation of approved exceptions Treatments & Other Orders: [ Full liquid diet until Physician determines can advance diet Encourage PO fluid (had TPN as volume for last week/ needs encouragement for PO liquids] Oxygen Orders: [n/a currently] Lab Tests or X-Rays Orders: [ Needs repeat Abdominal CT scan with Contrast 03/[address] Gilmar Newman (surgery)] Orthopedic Orders: [N/A not surgery patient]. Medications: Piperacillin sodium/pazobactam 3.375 gm IV q 6h thru 02/[address] Gilmar Newman ( additional 2 weeks from 03/13) HOme analgesic regimen; MS contin 30 mg PO q pm for chronic back pain oxycodone 15 mg q 4 hrs prn breakthru pain for chronic back pain Flexeril (cyclbenzaprine Hcl) 10 mg PO q pm prn spasm (back pain) Lovenox 40 mg subq daily (VTE prophylaxis) HCTZ 25 mg PO daily (for hypertension) Lisinopril 20 mg po daily (for hypertension) Zofran 4 mg PO q 6 hr prn nausea Florastor 250 mg po bid (probiotic) [place] thyroid 120 mg oral daily (home regimen for hypothyroidism) Trazodone Hcl 200 mg PO q hs prn insomnia Venlafaxine HCL 225 mg PO daily for depression Albuterol 2 puffs q 4 hr prn wheeze PLEASE REFER TO THE DISCHARGE MEDICATION LIST. Insulin Orders? [no Patient is not diabetic] Diagnosis: Diabetes Initiate hypo and hyperglycemia protocols for BG <70 and BG >375. May check BG prn for signs/symptoms of dysglycemia. Frequency of BG checks: [AC/Meal/HS] Basal Insulin: na/ not indicated renetta Tarik Muro [] Lantus 100 units / ml inject subq as follows: [] [] Other: [] Correction Insulin: - Select the type of insulin below [Choose: Novolog/Humalog]100 units /ml insulin inject subq per orders indicate below [] LOW DOSE [] MODERATE DOSE [] MODERATE/HIGH DOSE [] HIGH DOSE GB UNITS GB UNITS GB UNITS GB UNITS 61-140 0 UNITS 61-140 0 UNITS 61-140 0 UNITS 61-140 0 UNITS 141-175 1 UNITS 141-175 1 UNITS 141-175 2 UNITS 141-175 3 UNITS 176-225 2 UNITS 176-225 3 UNITS 176-225 4 UNITS 176-225 5 UNITS 226-275 3 UNITS 226-275 5 UNITS 226-275 6 UNITS 226-275 7 UNITS 276-325 4 UNITS 276-325 7 UNITS 276-325 8 UNITS 276-325 9 UNITS 326-375 5 UNITS 326-375 9 UNITS 326-375 10 UNITS 326-375 11 UNITS >375 CONTACT MD >375 CONTACT MD >375 CONTACT MD >375 CONTACT MD Custom Dosing: [Choose: None/Novolog/Humalog] 100 units/ml Insulin inject subq as follows: GB Units 61-140 [] Units 141-175 [] Units 176-225 [] Units 226-275 [] Units 276-325 []Units 326-375 [] Units >375 Contact MD Allergies and Adverse Reactions: Allergies Allergy/AdvReac Type Severity Reaction Status Date / Time adhesive tape Allergy Rash Verified 03/01/18 16:30 hydrocodone bitartrate * AdvReac Itching Verified 03/01/18 16:30 [From Vicodin] - Medications New Prescriptions: Enoxaparin [Lovenox] 40 mg SUBQ DAILY #21 syringe Hydromorphone HCl/0.9% NaCl/Pf [Hydromorphone 2 mg/ml-Ns Syrng] 2 mg IV Q2H PRN #40 syringe PRN Reason: Abdominal Pain Lisinopril 20 mg PO DAILY #30 tablet Nqlfitjkzgwm-Kwpn-Edwjqkzf,Iso [Zosyn 3.375 gm/50 ml Galaxy] 3.375 gm IV Q6H # 60 froz.piggy Saccharomyces Boulardii [Florastor] 250 mg PO BID 14 Days #30 capsule - Diet Type: Full liquid diet Liquids: Thin Supplements: Full liquid diet until Dr. Newman advances - Therapies | Activity Activity: No Restrictions Weight Bearing: Full Weight Additional Instructions: call Dr. Gilmar Newman office with CT scan result, phone: [phone]"
[2018-03-13 12:40] VITALS: BP 115/69
--- NOTE | 2018-04-02 12:34 | PROVIDER PROGRESS NOTE ---
Subjective - General Admit Date: 03/01/18 - Review of Systems Pulmonary: positive: No symptoms Cardiovascular: positive: No symptoms Gastrointestinal: positive: No symptoms All Other Systems: positive: Reviewed and negative Objective - Lab Results Lab Results: 03/13/18 06:20 03/13/18 06:20 - Physical Exam Respiratory: positive: No respiratory distress Cardiovascular: positive: Regular rate & rhythm Abdomen: positive: Non-tender Impression/Plan - Problem List Problem List: Contained perforated sigmoid diverticulitis. Symptoms resolved on bowel rest, antibiotics, and tpn. Now on full liquids without symptoms. Advance to low residual diet. Transfer to snf for 2 weeks of iv antibiotics F/u ct scan abdomen/pelvis in 10 days. F/u in clinic after ct scan.
--- NOTE | 2018-04-02 14:37 | DISCHARGE SUMMARY ---
Physician: Bernard Newman MD DATE OF ADMISSION: 03/01/2018 DATE OF DISCHARGE: 03/13/2018 REASON FOR ADMISSION: Abdominal pain. HISTORY OF PRESENT ILLNESS: The patient is a 58-year-old female who presented to the emergency room four days prior. 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 She was placed on Keflex and Flagyl. The patient now returns to the emergency room with continued abdominal pain. She has been having fever and chills along with mild constipation. PAST MEDICAL HISTORY 1. Hypertension. 2. Asthma. 3. Shortness of breath. 4. Hypothyroidism. 5. Breast cancer. 6. Depression. 7. Anxiety. 8. ADHD. 9. Chronic back pain. 10. Osteoarthritis. PAST SURGICAL HISTORY 1. Appendectomy. 2. Eight spinal surgeries. 3. Mastectomy. MEDICATIONS 1. Venlafaxine. 2. Hydrochlorothiazide. 3. Synthroid. 4. Zofran. 5. Keflex. 6. Flagyl. 7. Naprosyn. 8. Zofran. 9. Percocet. ALLERGIES: ADHESIVE TAPE AND VICODIN. HABITS: The patient denies any smoking, alcohol or drug use. FAMILY HISTORY: Noncontributory. SOCIAL HISTORY: The patient is single. REVIEW OF SYSTEMS CONSTITUTIONAL: Not feeling well, along with fevers and chills. GASTROINTESTINAL: No abdominal pain. MUSCULOSKELETAL: Back pain. PSYCHOLOGICAL: Anxiety and depression. PHYSICAL EXAMINATION VITAL SIGNS: Temperature is 36, heart rate 75, respirations 18, blood pressure is 141/102. GENERAL: The patient is lying in bed. She is cooperative, appears to answer questions fully in no distress at the current time. HEENT: Eyes: Nonicteric. \NECK: No lymphadenopathy. HEART: Regular. LUNGS: Clear. BACK: Nontender. ABDOMEN: Soft, tender in the left lower quadrant without diffuse tenderness or peritoneal signs. No masses. No hernias. EXTREMITIES: No edema or cyanosis. NEUROLOGICAL: The patient appears to be neurologically intact without any deficit. PSYCHOLOGICAL: The patient is anxious. DIAGNOSTIC DATA: CT scan of the abdomen and pelvis shows persistent diverticulitis with perforation into the mesentery. White blood cell count is 8.5, hemoglobin 14.6. ASSESSMENT: Complicated diverticulitis with contained perforation in the mesentery. I have recommended the patient be admitted to the hospital and be started on IV antibiotics. PRINCIPAL DIAGNOSIS: Perforated diverticulitis contained in the mesentery. OTHER MEDICAL PROBLEMS: Hypertension, asthma, hypothyroidism, history of breast cancer, anxiety/depression, ADHD, chronic back pain, osteoarthritis. PROCEDURES: None. HOSPITAL CONSULT: The hospitalists, to help manage her multiple medical problems. HOSPITAL COURSE: The patient's CT scan in the emergency room showed perforated diverticulitis contained in the mesentery. She had been placed n.p.o. and started on broad spectrum antibiotics. She had a normal white count throughout hospitalization, along with no significant fever. Approximately four days out from the procedure, she started to have a small amount of liquid bowel movements. Her abdominal pain slowly improved, but persisted. She had a followup CT scan one week after admission, which was unchanged, showing the perforation being contained. With her having continued abdominal pain, but improving, I thought it would be marcum to place her n.p.o., and add gentamicin to her antibiotic regime. She had a PICC line placed and was started on TPN. For the next week, she continued to improve with her abdominal pain, essentially resolving. She was having further formed stool, but still a little loose. As she improved. She was then started back on liquid diet and advanced to full liquids. She did not have any further abdominal pain. It was felt marcum not to have her go home with IV antibiotics, and therefore she was transferred to a long term facility on 03/13/2018 to receive another two weeks of IV antibiotics. She will have a CT scan of the abdomen and pelvis in approximately ten days, to see if her diverticulitis has resolved or not. DISCHARGE PROGRAM: Patient will be discharged to SNF. She is to resume her prehospitalization medications. In addition, she will be on Zosyn 3.75 mg IV every 8 hours for the next two weeks. She will be on a residual diet. She will followup in clinic after CT scan has been completed, in order to evaluate for resolution of her diverticulitis. If her diverticulitis has resolved, then she will have a followup colonoscopy in one month, and then consideration of colon resection sometime in the near future. TD: 04/02/2018 12:44
== END 2018-03-13 13:15 | DRG 392 ==
LOC: ED 16:25 → MS2 19:46
PROVIDERS: ADMIT Surgery; ATTEND Surgery
PROC: 02HV33Z Insertion of Infusion Device into Superior Vena Cava, Percutaneous Approach (ICD-10-PCS; principal; 2018-03-04)
PROC: 3E0436Z Introduction of Nutritional Substance into Central Vein, Percutaneous Approach (ICD-10-PCS; 2018-03-06)
DX: K57.20 Diverticulitis of large intestine with perforation and abscess without bleeding (principal); F11.20 Opioid dependence, uncomplicated; K63.2 Fistula of intestine; I10 Essential (primary) hypertension; F32.9 Major depressive disorder, single episode, unspecified; E03.9 Hypothyroidism, unspecified; F41.9 Anxiety disorder, unspecified; F90.9 Attention-deficit hyperactivity disorder, unspecified type; G89.28 Other chronic postprocedural pain; M54.42 Lumbago with sciatica, left side; M19.90 Unspecified osteoarthritis, unspecified site; J45.909 Unspecified asthma, uncomplicated; Z79.1 Long term (current) use of non-steroidal anti-inflammatories (NSAID); Z79.899 Other long term (current) drug therapy; Z85.3 Personal history of malignant neoplasm of breast; Z90.10 Acquired absence of unspecified breast and nipple; Z98.1 Arthrodesis status
CPT/HCPCS: 36415; 74176; 74177; 76000; 80048; 80053; 80170; 83690; 83735; 84100; 84134; 84443; 84478; 84480; 84481; 85025; 85610; 96374; 96376; 99283; 99284

== ENCOUNTER 2018-04-09 09:06 | Outpatient (CLI) | payer OTHER ==
[2018-04-09 09:52] LABS: BASOPHILS # (AUTO) 0.2 10^3/uL (0.0-0.1); BASOPHILS % (AUTO) 1.9 %; EOSINOPHILS # (AUTO) 0.2 10^3/uL (0.0-0.7); EOSINOPHILS % (AUTO) 2.9 %; LYMPHOCYTES # (AUTO) 2.3 10^3/uL (1.5-3.5); LYMPHOCYTES % (AUTO) 27.4 %; MEAN CORPUSCULAR HEMOGLOBIN 30.6 pg (27.0-31.0); MEAN CORPUSCULAR HGB CONC 34.5 g/dL (32.0-36.0); MEAN CORPUSCULAR VOLUME 88.9 fL (81.0-99.0); MONOCYTES # (AUTO) 0.7 10^3/uL (0.0-1.0); MONOCYTES % (AUTO) 7.9 %; NEUTROPHILS # (AUTO) 5.1 10^3/uL (1.5-6.6); NEUTROPHILS % (AUTO) 59.9 %; PLT - PLATELET COUNT 322 10^3/uL (130-450); RED BLOOD COUNT 4.57 10^6/uL (4.20-5.40); RED CELL DISTRIBUTION WIDTH 13.2 % (12.0-15.0); WHITE BLOOD COUNT 8.6 x10^3/uL (4.8-10.8)
[2018-04-09 10:09] LABS: ALBUMIN 3.4 g/dL (3.2-5.5); ALBUMIN/GLOBULIN RATIO 0.9 (1.0-2.2); CALCIUM 9.3 mg/dL (8.5-10.3); CREATININE 0.6 mg/dL (0.4-1.0); TOTAL PROTEIN 7.3 g/dL (6.7-8.2)
== END 2018-04-09 09:07 | disposition home or self-care (01) ==
LOC: LAB 09:06
PROVIDERS: ATTEND Internal Medicine Gastroenterology
DX: K57.92 Diverticulitis of intestine, part unspecified, without perforation or abscess without bleeding (principal)
CPT/HCPCS: 36415; 80053; 85025

== ENCOUNTER 2018-04-23 06:11 | Day surgery (SDC) | payer OTHER ==
[2018-04-23] MEDS ORDERED: LACTATED RINGERS 1,000 ML IV ONE (06:55)
[2018-04-23] MEDS ORDERED: ONDANSETRON 4 MG/2 ML VIAL IVP ONE (07:40)
[2018-04-23] MEDS ORDERED: LIDOCAINE-MPF 2% 5 ML VIAL IM ONE (07:40)
[2018-04-23] MEDS ORDERED: fentaNYL 100 MCG/2 ML VIAL IVP ONE (07:40)
[2018-04-23] MEDS ORDERED: MIDAZOLAM 2 MG/2 ML VIAL IVP ONE (07:40)
[2018-04-23 08:53] VITALS: BP 149/92
== END 2018-04-23 06:12 | disposition home or self-care (01) ==
LOC: SDS 06:11
PROVIDERS: ATTEND Internal Medicine Gastroenterology
PROC: 0DBN8ZX Excision of Sigmoid Colon, Via Natural or Artificial Opening Endoscopic, Diagnostic (ICD-10-PCS; principal; 2018-04-23 07:30)
DX: R10.32 Left lower quadrant pain (principal); K57.30 Diverticulosis of large intestine without perforation or abscess without bleeding; K63.89 Other specified diseases of intestine; F41.9 Anxiety disorder, unspecified; J45.909 Unspecified asthma, uncomplicated; E03.9 Hypothyroidism, unspecified; I10 Essential (primary) hypertension; F90.9 Attention-deficit hyperactivity disorder, unspecified type; F32.9 Major depressive disorder, single episode, unspecified; M19.90 Unspecified osteoarthritis, unspecified site; G89.29 Other chronic pain; Z87.19 Personal history of other diseases of the digestive system; Z85.3 Personal history of malignant neoplasm of breast; Z79.899 Other long term (current) drug therapy
CPT/HCPCS: 45380; J7120

== ENCOUNTER 2018-04-24 15:15 | Emergency (ER) | payer OTHER ==
--- NOTE | 2018-04-24 16:15 | ED Physician Documentation ---
PD HPI ABD PAIN - Stated complaint Stated Complaint: ABD PX - Chief complaint Chief Complaint: Abd Pain - History obtained from History obtained from: Patient - History of Present Illness Timing - onset: Yesterday Timing - duration: Days (1 day of pain, with LLQ pain starting after colonoscopy yesterday. That was done in follow up of diverticulitis episode few weeks ago. She states she was feeling okay prior to the scope. The scope report is stating there was visualized area of diverticulitis found on the scope.) Timing - details: Gradual onset, Still present Quality: Cramping, Aching, Pain Location: LLQ Radiation: Lower back Improved by: No: Eating Worsened by: Moving, Position, Palpation. No: Eating, Breathing Associated symptoms: Nausea. No: Fever, Vomiting, Diarrhea, Constipation Similar symptoms before: Diagnosis (diverticulitis) Recently seen: Admitted (last month for diverticulitis.), Surgery (colonscopy done yesterday) Review of Systems Constitutional: reports: Myalgias, Fatigue. denies: Fever, Chills Nose: denies: Rhinorrhea / runny nose, Congestion Throat: denies: Sore throat Cardiac: denies: Chest pain / pressure, Palpitations Respiratory: denies: Dyspnea, Cough, Wheezing GI: reports: Abdominal Pain, Nausea. denies: Vomiting, Diarrhea, Bloody / black stool : denies: Dysuria, Frequency Skin: denies: Rash, Lesions Neurologic: reports: Generalized weakness. denies: Focal weakness, Numbness, Near syncope PD PAST MEDICAL HISTORY - Past Medical History Past Medical History: Yes Cardiovascular: Hypertension Respiratory: Asthma, Shortness of breath Neuro: Headaches, Motion sickness Endocrine/Autoimmune: HyPOthyroidism GI: Diverticulitis RDA: Breast cancer : None HEENT: None Psych: Depression, Anxiety, ADD/ADHD Musculoskeletal: Osteoarthritis, Chronic back pain Derm: None - Past Surgical History Past Surgical History: Yes General: Appendectomy Ortho: Spine surgery /RDA: Mastectomy - Present Medications Home Medications: Ambulatory Orders Medication Instructions Recorded Confirmed Venlafaxine HCl [Venlafaxine HCl 75 mg PO QPM 06/17/17 04/23/18 ER] hydroCHLOROthiazide 25 mg PO DAILY 08/10/17 04/23/18 [Hydrochlorothiazide] Albuterol Sulfate [Proair 2 puffs INH Q4H PRN 03/02/18 04/23/18 Respiclick] Cyclobenzaprine [Flexeril] 10 mg PO QPM PRN 03/02/18 04/23/18 Morphine Sulfate [Morphine Sulfate 30 mg PO QPM 03/02/18 04/23/18 ER] Ondansetron HCl [Zofran] 4 - 8 mg PO DAILY PRN 03/02/18 04/23/18 Oxycodone HCl [Roxicodone] 15 mg PO Q4H PRN MDD 5 tabs 03/02/18 04/23/18 Thyroid,Pork [[place] Thyroid] 120 mg PO QDAC 03/02/18 04/23/18 Venlafaxine HCl [Venlafaxine HCl 150 mg PO DAILY 03/02/18 04/23/18 ER] traZODone [Desyrel] 200 mg PO HS PRN 03/02/18 04/23/18 Lisinopril 20 mg PO DAILY #30 tablet 03/13/18 04/23/18 Cephalexin [Keflex] 500 mg PO TID #21 capsule 04/24/18 Metronidazole [Flagyl] 500 mg PO BID #14 tablet 04/24/18 Naproxen 375 mg PO BID #20 tablet 04/24/18 - Allergies Allergies/Adverse Reactions: Allergies Allergy/AdvReac Type Severity Reaction Status Date / Time adhesive tape Allergy Rash Verified 04/24/18 15:22 latex Allergy Rash Verified 04/24/18 15:22 hydrocodone bitartrate * AdvReac Itching Verified 04/24/18 15:22 [From Vicodin] - Social History Does the pt smoke?: No Smoking Status: Never smoker Does the pt drink ETOH?: No Does the pt have substance abuse?: No - Family History Family history: reports: Non contributory - Immunizations Immunizations are current?: Yes - POLST Patient has POLST: No POLST Status: Full Code PD ED PE NORMAL - Vitals Vital signs reviewed: Yes - General General: Alert and oriented X 3, Well developed/nourished, Other (appears in pain) - HEENT HEENT: Pharynx benign - Neck Neck: Supple, no meningeal sign, No adenopathy - Cardiac Cardiac: RRR, No murmur - Respiratory Respiratory: Clear bilaterally - Abdomen Abdomen: Soft, Non distended, No organomegaly, Other. No: Normal bowel sounds - Female Female : Deferred - Rectal Rectal: Deferred - Back Back: No CVA TTP - Derm Derm: Normal color, Warm and dry - Extremities Extremities: No deformity, No tenderness to palpate, Normal ROM s pain, No edema , No calf tenderness / cord - Neuro Neuro: Alert and oriented X 3, No motor deficit, Normal speech - Psych Psych: Normal mood, Normal affect Results - Vitals Vitals: Vital Signs - 24 hr 04/24/18 04/24/18 04/24/18 15:19 15:45 18:44 Temperature 36.7 C Heart Rate 81 82 Respiratory 18 14 Rate Blood Pressure 145/113 H 140/84 H 137/91 H O2 Saturation 95 95 Oxygen O2 Source Room air - Labs Labs: Laboratory Tests 04/24/18 04/24/18 16:58 16:58 WBC 9.9 RBC 4.44 Hgb 14.0 Hct 40.2 MCV 90.6 MCH 31.5 H MCHC 34.8 RDW 13.3 Plt Count 255 MPV 8.5 Neut # (Auto) 4.6 Lymph # (Auto) 3.9 H Finney # (Auto) 0.7 Eos # (Auto) 0.4 Baso # (Auto) 0.3 H Absolute Nucleated RBC 0.00 Nucleated RBC % 0.0 Sodium 142 Potassium 3.2 L Chloride 107 Carbon Dioxide 25 Anion Gap 10.0 BUN 15 Creatinine 0.7 Estimated GFR (MDRD) 86 L Glucose 82 Calcium 9.7 Total Bilirubin 0.3 AST 18 ALT 23 Alkaline Phosphatase 90 Total Protein 6.8 Albumin 3.6 Globulin 3.2 Albumin/Globulin Ratio 1.1 Lipase 20 L PD MEDICAL DECISION MAKING - ED course Complexity details: reviewed old records (Colonoscopy report from yesterday showing/stating visualized area of focal inflammation c/w acute diverticulitis. She is having pain lower left since the scope. Worse today. ), re-evaluated patient (feeling better with pain meds. Not having peritoneal signs on exam. WBC is good. She is okay with trying outpatient treatment. Given first dose meds here in ED. ), considered differential, d/w patient - Sepsis Event Vital Signs: Vital Signs - 24 hr 04/24/1818 04/24/18 15:19 15:45 18:44 Temperature 36.7 C Heart Rate 81 82 Respiratory 18 14 Rate Blood Pressure 145/113 H 140/84 H 137/91 H O2 Saturation 95 95 Oxygen O2 Source Room air Departure - Departure Disposition: 01 Home, Self Care Clinical Impression: Abdominal pain, left lower quadrant, Acute diverticulitis Condition: Stable Record reviewed to determine appropriate education?: Yes Instructions: ED Diverticulitis Follow-Up: Kathleen Asher MD [Primary Care Provider] - Prescriptions: Cephalexin [Keflex] 500 mg PO TID #21 capsule Metronidazole [Flagyl] 500 mg PO BID #14 tablet Naproxen 375 mg PO BID #20 tablet Comments: Drink lots of fluids. Continue usual home pain medications. Use antibiotics metronidazole and cephalexin as directed for a week for the diverticulitis. As naproxen twice daily for a week as well for the inflammation. Recheck if not improving over the next few days and return sooner if worsening. Discharge Date/Time: 04/24/18 18:45
[2018-04-24] MEDS ORDERED: SODIUM CHLORIDE 0.9% 1,000 ML IV ONE (16:32)
[2018-04-24] MEDS ORDERED: metroNIDAZOLE 250 MG TABLET PO STA (16:32)
[2018-04-24] MEDS ORDERED: HYDROmorphone 1 MG/ML CARPUJECT IVP STA ×2 (16:32→18:08)
[2018-04-24] MEDS ORDERED: PROCHLORPERAZINE 10 MG/2 ML VIAL IVP STA (16:32)
[2018-04-24] MEDS ORDERED: cefTRIAXone 1 GM VIAL IVP STA (16:32)
[2018-04-24] MEDS ORDERED: KETOROLAC 15 MG/ML VIAL IVP STA (16:32)
[2018-04-24 17:07] LABS: BASOPHILS # (AUTO) 0.3 10^3/uL (0.0-0.1); BASOPHILS % (AUTO) 2.8 %; EOSINOPHILS # (AUTO) 0.4 10^3/uL (0.0-0.7); EOSINOPHILS % (AUTO) 4.1 %; LYMPHOCYTES # (AUTO) 3.9 10^3/uL (1.5-3.5); LYMPHOCYTES % (AUTO) 39.1 %; MEAN CORPUSCULAR HEMOGLOBIN 31.5 pg (27.0-31.0); MEAN CORPUSCULAR HGB CONC 34.8 g/dL (32.0-36.0); MEAN CORPUSCULAR VOLUME 90.6 fL (81.0-99.0); MEAN PLATELET VOLUME 8.5 fL (7.9-10.8); MONOCYTES # (AUTO) 0.7 10^3/uL (0.0-1.0); MONOCYTES % (AUTO) 7.4 %; NEUTROPHILS # (AUTO) 4.6 10^3/uL (1.5-6.6); NEUTROPHILS % (AUTO) 46.6 %; PLT - PLATELET COUNT 255 10^3/uL (130-450); RED BLOOD COUNT 4.44 10^6/uL (4.20-5.40); RED CELL DISTRIBUTION WIDTH 13.3 % (12.0-15.0); WHITE BLOOD COUNT 9.9 x10^3/uL (4.8-10.8)
[2018-04-24 17:15] LABS: ALBUMIN 3.6 g/dL (3.2-5.5); ALBUMIN/GLOBULIN RATIO 1.1 (1.0-2.2); BILIRUBIN,TOTAL 0.3 mg/dL (0.2-1.0); CALCIUM 9.7 mg/dL (8.5-10.3); CREATININE 0.7 mg/dL (0.4-1.0); TOTAL PROTEIN 6.8 g/dL (6.7-8.2)
[2018-04-24 18:45] VITALS: BP 137/91
== END 2018-04-24 18:45 | disposition home or self-care (01) ==
LOC: ED 15:15
DX: R10.32 Left lower quadrant pain (principal); K57.92 Diverticulitis of intestine, part unspecified, without perforation or abscess without bleeding; I10 Essential (primary) hypertension; Z85.3 Personal history of malignant neoplasm of breast; Z90.10 Acquired absence of unspecified breast and nipple
CPT/HCPCS: 36415; 80053; 83690; 85025; 96361; 96374; 96375; 96376; 99283; 99284; A9270; J1170

== ENCOUNTER 2018-05-23 17:35 | Emergency (ER) | payer OTHER ==
[2018-05-23 18:20] LABS: BASOPHILS % (AUTO) 0.3 %; EOSINOPHILS # (AUTO) 0.3 10^3/uL (0.0-0.7); EOSINOPHILS % (AUTO) 3.4 %; HGB - HEMOGLOBIN 14.4 g/dL (12.0-16.0); LYMPHOCYTES # (AUTO) 3.5 10^3/uL (1.5-3.5); MEAN CORPUSCULAR HEMOGLOBIN 32.7 pg (27.0-31.0); MONOCYTES # (AUTO) 0.6 10^3/uL (0.0-1.0); MONOCYTES % (AUTO) 6.4 %; NEUTROPHILS % (AUTO) 52.9 %; PLT - PLATELET COUNT 297 10^3/uL (130-450); RED BLOOD COUNT 4.38 10^6/uL (4.20-5.40); WHITE BLOOD COUNT 9.4 x10^3/uL (4.8-10.8)
[2018-05-23 18:32] LABS: ALBUMIN 3.8 g/dL (3.2-5.5); ALBUMIN/GLOBULIN RATIO 1.2 (1.0-2.2); ALKALINE PHOSPHATASE 72 IU/L (42-121); ALT ALANINE AMINOTRANSFERASE 22 IU/L (10-60); AST ASPARTATE AMINOTRANSFERASE 22 IU/L (10-42); BILIRUBIN,TOTAL < 0.2 mg/dL (0.2-1.0); BUN - BLOOD UREA NITROGEN 17 mg/dL (6-20); CALCIUM 9.4 mg/dL (8.5-10.3); CARBON DIOXIDE - CO2 23 mmol/L (21-32); CHLORIDE 106 mmol/L (101-111); CREATININE 0.8 mg/dL (0.4-1.0); GFR - MDRD 74 (>89); GLUCOSE 111 mg/dL (70-100); LIPASE 23 U/L (22-51); SODIUM 138 mmol/L (135-145); TOTAL PROTEIN 6.9 g/dL (6.7-8.2)
[2018-05-23] MEDS ORDERED: oxyCODONE 5 MG TABLET PO STA (19:34)
[2018-05-23] MEDS ORDERED: ONDANSETRON ODT 4 MG TABLET TL STA (19:35)
[2018-05-23] MEDS ORDERED: AMOX/CLAV 875 MG/125 MG TABLET PO STA (19:35)
--- NOTE | 2018-05-23 20:02 | ED Physician Documentation ---
PD HPI ABD PAIN - Stated complaint Stated Complaint: N/V/F/HBP/ABD PX - Chief complaint Chief Complaint: Abd Pain - History obtained from History obtained from: Patient - History of Present Illness Timing - details: Abrupt onset, Still present Pain level max: 6 Pain level now: 6 Quality: Pain Location: LLQ Improved by: Laying still Worsened by: Palpation Associated symptoms: No: Fever, Vomiting, Melena, Hematochezia, Dysuria Recently seen: Not recently seen - Additional information Additional information: Patient states that her LLQ abdominal pain began at 3AM this morning and has had this pain in the past before. Nothing makes it worse or better. worse with palpation. Has a history of diverticulitis. Review of Systems Ten Systems: 10 systems reviewed and negative Constitutional: denies: Fever, Chills Ears: denies: Ear pain Nose: denies: Rhinorrhea / runny nose, Congestion Throat: denies: Sore throat Respiratory: denies: Cough Skin: denies: Rash Musculoskeletal: denies: Neck pain, Back pain Neurologic: denies: Headache PD PAST MEDICAL HISTORY - Past Medical History Past Medical History: Yes Cardiovascular: Hypertension Respiratory: Asthma, Shortness of breath Neuro: Headaches, Motion sickness Endocrine/Autoimmune: HyPOthyroidism GI: Diverticulitis [employer] WHE[employer]IR: Breast cancer : None HEENT: None Psych: Depression, Anxiety, ADD/ADHD Musculoskeletal: Osteoarthritis, Chronic back pain Derm: None - Past Surgical History Past Surgical History: Yes General: Appendectomy 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 - Present Medications Home Medications: Ambulatory Orders Medication Instructions Recorded Confirmed Venlafaxine HCl [Venlafaxine HCl 75 mg PO QPM 06/17/17 04/23/18 ER] hydroCHLOROthiazide 25 mg PO DAILY 08/10/17 04/23/18 [Hydrochlorothiazide] Albuterol Sulfate [Proair 2 puffs INH Q4H PRN 03/02/18 04/23/18 Respiclick] Cyclobenzaprine [Flexeril] 10 mg PO QPM PRN 03/02/18 04/23/18 Morphine Sulfate [Morphine Sulfate 30 mg PO QPM 03/02/18 04/23/18 ER] Ondansetron HCl [Zofran] 4 - 8 mg PO DAILY PRN 03/02/18 04/23/18 Oxycodone HCl [Roxicodone] 15 mg PO Q4H PRN MDD 5 tabs 03/02/18 04/23/18 Thyroid,Pork [[place] Thyroid] 120 mg PO QDAC 03/02/18 04/23/18 Venlafaxine HCl [Venlafaxine HCl 150 mg PO DAILY 03/02/18 04/23/18 ER] traZODone [Desyrel] 200 mg PO HS PRN 03/02/18 04/23/18 Lisinopril 20 mg PO DAILY #30 tablet 03/13/18 04/23/18 Cephalexin [Keflex] 500 mg PO TID #21 capsule 04/24/18 Metronidazole [Flagyl] 500 mg PO BID #14 tablet 04/24/18 Naproxen 375 mg PO BID #20 tablet 04/24/18 Amox/Clav 875/125 [Augmentin] 1 each PO Q12H #20 tablet 05/23/18 Ondansetron Odt [Zofran] 4 mg TL Q6H PRN #10 tablet 05/23/18 Oxycodone HCl/Acetaminophen 1 - 2 each PO Q6H PRN #14 tablet 05/23/18 [Percocet 5-325 mg Tablet] - Allergies Allergies/Adverse Reactions: Allergies Allergy/AdvReac Type Severity Reaction Status Date / Time adhesive tape Allergy Rash Verified 04/24/18 15:22 latex Allergy Rash Verified 04/24/18 15:22 hydrocodone bitartrate * AdvReac Itching Verified 04/24/18 15:22 [From Vicodin] - Social History Does the pt smoke?: No Smoking Status: Never smoker Does the pt drink ETOH?: No Does the pt have substance abuse?: No - Immunizations Immunizations are current?: Yes - POLST Patient has POLST: No POLST Status: Full Code PD ED PE NORMAL - Vitals Vital signs reviewed: Yes - General General: Alert and oriented X 3, No acute distress, Well developed/nourished - HEENT HEENT: Atraumatic, PERRL, Moist mucous membranes - Neck Neck: Supple, no meningeal sign - Cardiac Cardiac: RRR - Respiratory Respiratory: No respiratory distress, Clear bilaterally - Abdomen Abdomen: Soft, Other (Tender palpation left lower quadrant without peritoneal signs) - Back Back: No CVA TTP, No spinal TTP - Derm Derm: Warm and dry, No rash - Extremities Extremities: Normal ROM s pain - Neuro Neuro: Alert and oriented X 3 - Psych Psych: Normal mood Results - Vitals Vitals: Vital Signs - 24 hr 05/23/18 05/23/18 05/23/18 17:43 21:00 21:47 Temperature 36 C L Heart Rate 89 73 73 Respiratory 18 20 18 Rate Blood Pressure 147/108 H 165/112 H 208/138 H O2 Saturation 96 98 97 05/23/18 05/24/18 23:35 00:26 Temperature Heart Rate 73 73 Respiratory 16 18 Rate Blood Pressure 164/97 H 142/73 H O2 Saturation 99 99 Oxygen O2 Source Room air - Labs Labs: Laboratory Tests 05/23/18 05/23/18 18:10 18:10 WBC 9.4 RBC 4.38 Hgb 14.4 Hct 39.9 MCV 91.0 MCH 32.7 H MCHC 36.0 RDW 13.0 Plt Count 297 MPV 8.0 Neut # (Auto) 5.0 Lymph # (Auto) 3.5 [place] # (Auto) 0.6 Eos # (Auto) 0.3 Baso # (Auto) 0.0 Absolute Nucleated RBC 0.01 Nucleated RBC % 0.1 Sodium 138 Potassium 3.7 Chloride 106 Carbon Dioxide 23 Anion Gap 9.0 BUN 17 Creatinine 0.8 Estimated GFR (MDRD) 74 L Glucose 111 H Calcium 9.4 Total Bilirubin < 0.2 L AST 22 ALT 22 Alkaline Phosphatase 72 Total Protein 6.9 Albumin 3.8 Globulin 3.1 Albumin/Globulin Ratio 1.2 Lipase 23 - Rads (name of study) CT abd/pelvis Radiology: Prelim report reviewed, EMP read contemporaneously, See rad report (Mild residual or recurrent sigmoid colon diverticulitis. 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 . No evidence of abscess or bowel obstruction. ) PD MEDICAL DECISION MAKING - ED course Complexity details: reviewed old records, reviewed results, re-evaluated patient, considered differential, d/w patient ED course: Patient is a 58-year-old female who presents to the emergency department with recurrent abdominal pain. Has recurrent chronic diverticulitis, she is being evaluated for possible colon resection. Appears to have mild residual versus recurrent sigmoid colonic diverticulitis. Will place on Augmentin and have her follow-up with her PCP. She is well-appearing, nontoxic. Afebrile. No evidence of perforation or abscess. Patient counseled regarding signs and symptoms for which I believe and urgent re-evaluation would be necessary. Patient with good understanding of and agreement to plan and is comfortable going home at this time This document was made in part using voice recognition software. While efforts are made to proofread this document, sound alike and grammatical errors may occur. - Sepsis Event Vital Signs: Vital Signs - 24 hr 05/23/18 05/23/18 05/23/18 17:43 21:00 21:47 Temperature 36 C L Heart Rate 89 73 73 Respiratory 18 20 18 Rate Blood Pressure 147/108 H 165/112 H 208/138 H O2 Saturation 96 98 97 05/23/18 05/24/18 23:35 00:26 Temperature Heart Rate 73 73 Respiratory 16 18 Rate Blood Pressure 164/97 H 142/73 H O2 Saturation 99 99 Oxygen O2 Source Room air Departure - Departure Disposition: 01 Home, Self Care Clinical Impression: Diverticulitis Condition: Good Instructions: ED Diverticulitis Follow-Up: Kathleen Asher MD [Primary Care Provider] - Within 1 week Prescriptions: Amox/Clav 875/125 [Augmentin] 1 each PO Q12H #20 tablet Ondansetron Odt [Zofran] 4 mg TL Q6H PRN #10 tablet PRN Reason: Nausea / Vomiting Oxycodone HCl/Acetaminophen [Percocet 5-325 mg Tablet] 1 - 2 each PO Q6H PRN #14 tablet PRN Reason: pain Comments: Take all antibiotics until gone. Follow-up with your doctor for further care. There is no perforation or abscess on your CT scan tonight. Do not drink alcohol or drive while on narcotic pain medicine. Note that many narcotic pain relievers also contain tylenol/acetaminophen. Please ensure that your total dose of acetaminophen from all sources does not exceed 3 grams (3000mg) per day. You may constipated on this medication, take a stool softener such as "Colace" twice a day while you are on it. Also recommend a [id number] laxative such as senna or MiraLAX any day that you do not have a bowel movement. If you received narcotic pain medication in the emergency department, do not drive or operate machinery for the next 24 hours. Discharge Date/Time: 05/24/18 00:27
[2018-05-23] MEDS ORDERED: KETOROLAC 60 MG/2 ML VIAL IVP STA (20:56)
[2018-05-23] MEDS ORDERED: HYDROmorphone 1 MG/ML CARPUJECT IVP STA (22:14)
[2018-05-23] MEDS ORDERED: SODIUM CHLORIDE 0.9% 1,000 ML IV ONE ×2 (22:28)
[2018-05-23] MEDS ORDERED: LORazepam 2 MG/ML VIAL IVP STA (22:42)
[2018-05-23] MEDS ORDERED: IOPAMIDOL-300 100 ML VIAL ONE (22:43)
[2018-05-23] MEDS ORDERED: IOPAMIDOL-300 100 ML VIAL IVP ONE (23:01)
--- NOTE | 2018-05-23 23:34 | CT Report ---
Reason: LLQ abd pain Procedure Date: 05/23/2018 Accession Number: [id number] / [id number] Procedure: CT - Abdomen/Pelvis W/ CPT Code: FULL RESULT: EXAM: CT ABDOMEN AND PELVIS EXAM DATE: 05/23/2018 11:13 PM. CLINICAL HISTORY: Left lower quadrant abdominal pian. COMPARISONS: ABDOMEN/PELVIS W/O 03/06/2018 6:07 AM ABDOMEN/PELVIS W/ 02/25/2018 2:10 PM ABDOMEN/PELVIS W/O 10/11/2017 9:33 AM. TECHNIQUE: Routine helical CT imaging was performed through the abdomen and pelvis. IV contrast: ISOVUE 300 100mL. Enteric contrast: No. Reconstructions: Coronal and sagittal. In accordance with CT protocol optimization, one or more of the following dose reduction techniques were utilized for this exam: automated exposure control, adjustment of mA and/or KV based on patient size, or use of iterative reconstructive technique. FINDINGS: Lung Bases: No significant findings. Liver: Normal. No masses. Gallbladder/Bile Ducts: Unremarkable. Spleen: Normal. Pancreas: Normal. Adrenal Glands: Normal. Kidneys: Normal. No masses or hydronephrosis. Peritoneal Cavity/Bowel: There is diverticulosis of the left colon. Mild inflammatory stranding seen around the proximal sigmoid colon. Again seen is a proximal to mid sigmoid colon fistula best seen on coronal series 5 image numbers [id number]. No abscess. No small bowel obstruction. No pneumoperitoneum. No evidence of appendicitis. Pelvic Organs: Normal. The bladder and visualized pelvic organs are within normal limits. Vasculature: No aneurysms or other significant abnormality. Bones: No significant abnormality. Other: None. IMPRESSION: 1. Mild residual or recurrent sigmoid colon diverticulitis. 2. 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 3. No evidence of abscess or bowel obstruction. RADIA
[2018-05-23] MEDS ORDERED: MORPHINE 10 MG/ML VIAL IVP STA (23:42)
[2018-05-24 00:27] VITALS: BP 142/73
== END 2018-05-24 00:27 | disposition home or self-care (01) ==
LOC: ED 17:35
DX: K57.92 Diverticulitis of intestine, part unspecified, without perforation or abscess without bleeding (principal); I10 Essential (primary) hypertension; E03.9 Hypothyroidism, unspecified
CPT/HCPCS: 36415; 74177; 80053; 83690; 85025; 96361; 96374; 96375; 99283; 99284; A9270; J1170; J2060; Q0162; Q9967

== ENCOUNTER 2018-06-17 14:27 | Emergency (ER) | payer OTHER ==
--- NOTE | 2018-06-17 15:15 | XRAY Report ---
Reason: pain Procedure Date: 06/17/2018 Accession Number: [id number] / [id number] Procedure: XR - Shoulder 3 View LT CPT Code: FULL RESULT: EXAM: LEFT SHOULDER RADIOGRAPHY EXAM DATE: 06/17/2018 02:52 PM. CLINICAL HISTORY: Pain. COMPARISON: SHOULDER 3 VIEW LT 06/06/2015 4:49 PM. TECHNIQUE: 3 views. FINDINGS: Bones: Normal. No fracture or bone lesion. Joints: The glenohumeral joint is well located. There is elevation of the coracoclavicular interval with preservation of the acromioclavicular interval. This appearance is unchanged from 2015. Soft tissues: The visualized hemithorax is unremarkable. No soft tissue swelling. IMPRESSION: Persistent increase in the coracoclavicular interval, not new. This can be seen with AC joint injury. RADIA
[2018-06-17] MEDS ORDERED: oxyCODONE 5 MG TABLET PO STA (16:43)
--- NOTE | 2018-06-17 16:45 | ED Physician Documentation ---
PD HPI UPPER EXT INJURY - Stated complaint Stated Complaint: LT SHOULDER INJ - Chief complaint Chief Complaint: Ext Problem - History obtained from History obtained from: Patient - History of Present Illness Location: Left (4 days ago at work she had to pull on something and she has had anterior severe shoulder pain ever since. 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 HEENT: None Psych: Depression, Anxiety, ADD/ADHD Musculoskeletal: Osteoarthritis, Chronic back pain Derm: None - Past Surgical History Past Surgical History: Yes General: Appendectomy Ortho: Spine surgery /[employer] INSURANCE: Mastectomy - Present Medications Home Medications: Ambulatory Orders Medication Instructions Recorded Confirmed Venlafaxine HCl [Venlafaxine HCl 75 mg PO QPM 06/17/17 04/23/18 ER] hydroCHLOROthiazide 25 mg PO DAILY 08/10/17 04/23/18 [Hydrochlorothiazide] Albuterol Sulfate [Proair 2 puffs INH Q4H PRN 03/02/18 04/23/18 Respiclick] Cyclobenzaprine [Flexeril] 10 mg PO QPM PRN 03/02/18 04/23/18 Morphine Sulfate [Morphine Sulfate 30 mg PO QPM 03/02/18 04/23/18 ER] Ondansetron HCl [Zofran] 4 - 8 mg PO DAILY PRN 03/02/18 04/23/18 Oxycodone HCl [Roxicodone] 15 mg PO Q4H PRN MDD 5 tabs 03/02/18 04/23/18 Thyroid,Pork [[place] Thyroid] 120 mg PO QDAC 03/02/18 04/23/18 Venlafaxine HCl [Venlafaxine HCl 150 mg PO DAILY 03/02/18 04/23/18 ER] traZODone [Desyrel] 200 mg PO HS PRN 03/02/18 04/23/18 Lisinopril 20 mg PO DAILY #30 tablet 03/13/18 04/23/18 Cephalexin [Keflex] 500 mg PO TID #21 capsule 04/24/18 Metronidazole [Flagyl] 500 mg PO BID #14 tablet 04/24/18 Naproxen 375 mg PO BID #20 tablet 04/24/18 Ondansetron Odt [Zofran] 4 mg TL Q6H PRN #10 tablet 05/23/18 Oxycodone HCl/Acetaminophen 1 - 2 each PO Q6H PRN #14 tablet 05/23/18 [Percocet 5-325 mg Tablet] Oxycodone HCl/Acetaminophen 1 - 2 each PO Q6H PRN #14 tablet 06/17/18 [Percocet 5-325 mg Tablet] - Allergies Allergies/Adverse Reactions: Allergies Allergy/AdvReac Type Severity Reaction Status Date / Time adhesive tape Allergy Rash Verified 06/17/18 14:34 latex Allergy Rash Verified 06/17/18 14:34 hydrocodone bitartrate * AdvReac Itching Verified 06/17/18 14:34 [From Vicodin] - Social History Does the pt smoke?: No Smoking Status: Never smoker Does the pt drink ETOH?: No Does the pt have substance abuse?: No - Immunizations Immunizations are current?: Yes - POLST Patient has POLST: No POLST Status: Full Code PD ED PE NORMAL - Vitals Vital signs reviewed: Yes - General General: Alert and oriented X 3, No acute distress - Extremities Extremities: Other (Left shoulder is quite tender over the AC joint and limited range of abduction only to about 30 degrees. Normal pulses and sensation in the hand.) - Neuro Neuro: Alert and oriented X 3, Normal speech Results - Vitals Vitals: Vital Signs - 24 hr 06/17/18 14:32 Temperature 36.6 C Heart Rate 86 Respiratory 20 Rate Blood Pressure 137/100 H O2 Saturation 97 Oxygen O2 Source Room air - Rads (name of study) 3 views of the left shoulder Radiology: EMP read contemporaneously (Widening of the AC joint) PD MEDICAL DECISION MAKING - Sepsis Event Vital Signs: Vital Signs - 24 hr 06/17/18 14:32 Temperature 36.6 C Heart Rate 86 Respiratory 20 Rate Blood Pressure 137/100 H O2 Saturation 97 Oxygen O2 Source Room air Departure - Departure Disposition: 01 Home, Self Care Clinical Impression: Separation of left acromioclavicular joint Qualifiers: Encounter type: initial encounter Qualified Code(s): S43.102A - Unspecified dislocation of left acromioclavicular joint, initial encounter Condition: Good Record reviewed to determine appropriate education?: Yes Instructions: ED Sprain AC Joint Follow-Up: [facility] [Provider Group] Prescriptions: Oxycodone HCl/Acetaminophen [Percocet 5-325 mg Tablet] 1 - 2 each PO Q6H PRN #14 tablet PRN Reason: pain Comments: Your blood pressure was elevated today on check into the emergency department. This does not mean that you have hypertension, it is a common phenomenon to come to the emergency department and have elevated blood pressure. I recommend that you see your primary care physician within the week to have it rechecked when you are feeling better. Do not drink or drive while taking narcotic pain medication. Note that many narcotic pain relievers also contain Tylenol/acetaminophen. Please ensure that your total dose of acetaminophen from all sources does not ex ceed 3 g (3000 mg) per day. You may get constipated while on this medication. Take a stool softener such as Colace twice a day while you are on it. Also add an [id number] laxative such as senna or MiraLAX on any day that you do not have a bowel movement. If you received a narcotic pain medication or sedative while in the emergency department, do not drive for the next 24 hours. Forms: Activity restrictions
[2018-06-17 17:06] VITALS: BP 135/98
== END 2018-06-17 17:05 | disposition home or self-care (01) ==
LOC: ED 14:27
DX: S43.102A Unspecified dislocation of left acromioclavicular joint, initial encounter (principal); X50.9XXA Other and unspecified overexertion or strenuous movements or postures, initial encounter; Y93.89 Activity, other specified; Y92.89 Other specified places as the place of occurrence of the external cause; Y99.0 Civilian activity done for income or pay; I10 Essential (primary) hypertension
CPT/HCPCS: 1040M; 73030; 99283; A9270

== ENCOUNTER 2018-07-25 05:18 | Emergency (ER) | payer OTHER ==
[2018-07-25 05:55] LABS: BASOPHILS # (AUTO) 0.1 10^3/uL (0.0-0.1); BASOPHILS % (AUTO) 1.3 %; EOSINOPHILS # (AUTO) 0.3 10^3/uL (0.0-0.7); EOSINOPHILS % (AUTO) 3.8 %; HGB - HEMOGLOBIN 15.4 g/dL (12.0-16.0); LYMPHOCYTES # (AUTO) 2.7 10^3/uL (1.5-3.5); LYMPHOCYTES % (AUTO) 35.9 %; MEAN CORPUSCULAR HGB CONC 34.9 g/dL (32.0-36.0); MEAN CORPUSCULAR VOLUME 91.7 fL (81.0-99.0); MEAN PLATELET VOLUME 7.4 fL (7.9-10.8); MONOCYTES # (AUTO) 0.5 10^3/uL (0.0-1.0); MONOCYTES % (AUTO) 6.5 %; NEUTROPHILS # (AUTO) 3.9 10^3/uL (1.5-6.6); NEUTROPHILS % (AUTO) 52.5 %; PLT - PLATELET COUNT 263 10^3/uL (130-450); RED BLOOD COUNT 4.82 10^6/uL (4.20-5.40); RED CELL DISTRIBUTION WIDTH 13.4 % (12.0-15.0); WHITE BLOOD COUNT 7.4 x10^3/uL (4.8-10.8)
--- NOTE | 2018-07-25 06:04 | ED Physician Documentation ---
PD HPI ABD PAIN - Stated complaint Stated Complaint: ABD PX - Chief complaint Chief Complaint: Abd Pain - History obtained from History obtained from: Patient - History of Present Illness Timing - onset: Last night Timing - details: Gradual onset Pain level now: 8 Quality: Pain Location: LLQ Radiation: No: Chest, , Lower back, Left flank, Left shoulder, Right flank, Right shoulder, Upper back Improved by: Laying still Worsened by: Moving, Palpation Associated symptoms: Nausea, Vomiting. No: Fever, Diarrhea, Constipation Similar symptoms before: Diagnosis (similar to previous episodes of diverticulitis) Review of Systems Constitutional: reports: Reviewed and negative Cardiac: reports: Reviewed and negative Respiratory: reports: Reviewed and negative GI: reports: Abdominal Pain, Nausea, Vomiting. 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 : None HEENT: None Psych: Depression, Anxiety, ADD/ADHD Musculoskeletal: Osteoarthritis, Chronic back pain Derm: None - Past Surgical History Past Surgical History: Yes General: Appendectomy Ortho: Spine surgery /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 CRUDE UNIT: Mastectomy - Present Medications Home Medications: Ambulatory Orders Medication Instructions Recorded Confirmed Venlafaxine HCl [Venlafaxine HCl 75 mg PO QPM 06/17/17 07/25/18 ER] hydroCHLOROthiazide 25 mg PO DAILY 08/10/17 07/25/18 [Hydrochlorothiazide] Albuterol Sulfate [Proair 2 puffs INH Q4H PRN 03/02/18 07/25/18 Respiclick] Cyclobenzaprine [Flexeril] 10 mg PO QPM PRN 03/02/18 07/25/18 Morphine Sulfate [Morphine Sulfate 30 mg PO QPM 03/02/18 07/25/18 ER] Ondansetron HCl [Zofran] 4 - 8 mg PO DAILY PRN 03/02/18 07/25/18 Oxycodone HCl [Roxicodone] 15 mg PO Q4H PRN MDD 5 tabs 03/02/18 07/25/18 Thyroid,Pork [[place] Thyroid] 120 mg PO QDAC 03/02/18 07/25/18 Venlafaxine HCl [Venlafaxine HCl 150 mg PO DAILY 03/02/18 07/25/18 ER] traZODone [Desyrel] 200 mg PO HS PRN 03/02/18 07/25/18 Lisinopril 20 mg PO DAILY #30 tablet 03/13/18 07/25/18 Cephalexin [Keflex] 500 mg PO TID #21 capsule 04/24/18 07/25/18 Metronidazole [Flagyl] 500 mg PO BID #14 tablet 04/24/18 07/25/18 Naproxen 375 mg PO BID #20 tablet 04/24/18 07/25/18 Ondansetron Odt [Zofran] 4 mg TL Q6H PRN #10 tablet 05/23/18 07/25/18 Oxycodone HCl/Acetaminophen 1 - 2 each PO Q6H PRN #14 tablet 05/23/18 07/25/18 [Percocet 5-325 mg Tablet] Oxycodone HCl/Acetaminophen 1 - 2 each PO Q6H PRN #14 tablet 06/17/18 07/25/18 [Percocet 5-325 mg Tablet] Ciprofloxacin HCl [Cipro] 500 mg PO BID #20 tablet 07/25/18 Metronidazole [Flagyl] 500 mg PO BID #20 tablet 07/25/18 Ondansetron Odt [Zofran] 4 mg TL Q6H PRN #10 tablet 07/25/18 oxyCODONE [Roxicodone] 5 - 10 mg PO Q6H PRN #20 tablet 07/25/18 - Allergies Allergies/Adverse Reactions: Allergies Allergy/AdvReac Type Severity Reaction Status Date / Time adhesive tape Allergy Rash Verified 07/25/18 05:27 latex Allergy Rash Verified 07/25/18 05:27 hydrocodone bitartrate * AdvReac Itching Verified 07/25/18 05:27 [From Vicodin] - Social History Does the pt smoke?: No Smoking Status: Never smoker Does the pt drink ETOH?: No Does the pt have substance abuse?: No - Immunizations Immunizations are current?: Yes - POLST Patient has POLST: No POLST Status: Full Code PD ED PE NORMAL - Vitals Vital signs reviewed: Yes - General General: Alert and oriented X 3, No acute distress, Well developed/nourished - Cardiac Cardiac: RRR, No murmur - Respiratory Respiratory: No respiratory distress, Clear bilaterally - Abdomen Abdomen: Soft, Non distended, Other (moderate LLQ tenderness without rebound or guarding) - Back Back: No CVA TTP - Derm Derm: Normal color, Warm and dry, No rash Results - Vitals Vitals: Vital Signs - 24 hr 07/25/18 07/25/18 07/25/18 05:23 07:36 08:12 Temperature 36.9 C 36.4 C L Heart Rate 94 82 78 Respiratory 16 16 16 Rate Blood Pressure 154/100 H 138/76 H 130/96 H O2 Saturation 99 97 95 Oxygen O2 Source Room air - Labs Labs: Laboratory Tests 07/25/18 07/25/18 05:50 05:50 WBC 7.4 RBC 4.82 Hgb 15.4 Hct 44.2 MCV 91.7 MCH 32.0 H MCHC 34.9 RDW 13.4 Plt Count 263 MPV 7.4 L Neut # (Auto) 3.9 Lymph # (Auto) 2.7 [place] # (Auto) 0.5 Eos # (Auto) 0.3 Baso # (Auto) 0.1 Absolute Nucleated RBC 0.00 Nucleated RBC % 0.1 Sodium 139 Potassium 3.6 Chloride 106 Carbon Dioxide 28 Anion Gap 5.0 L BUN 22 H Creatinine 0.8 Estimated GFR (MDRD) 74 L Glucose 113 H Calcium 9.6 Total Bilirubin 0.6 AST 17 ALT 18 Alkaline Phosphatase 68 Total Protein 6.6 L Albumin 3.6 Globulin 3.0 Albumin/Globulin Ratio 1.2 Lipase 22 PD MEDICAL DECISION MAKING - ED course Complexity details: reviewed old records, reviewed results, re-evaluated patient, considered differential, d/w patient ED course: patient feels this pain is c/w previous episodes of diverticulitis, and not as severe as episodes that have required hospitalization; the plan we agreed on, then, is to treat empirically with antibiotics and analgesics with strict instruction to return if worse or other concerning signs/symptoms develop (such as blood in stool or fever) Departure - Departure Disposition: 01 Home, Self Care Clinical Impression: Diverticulitis Condition: Good Instructions: ED Diverticulitis Follow-Up: Kathleen Asher MD [Primary Care Provider] - Prescriptions: Ciprofloxacin HCl [Cipro] 500 mg PO BID #20 tablet Metronidazole [Flagyl] 500 mg PO BID #20 tablet Ondansetron Odt [Zofran] 4 mg TL Q6H PRN #10 tablet PRN Reason: Nausea / Vomiting oxyCODONE [Roxicodone] 5 - 10 mg PO Q6H PRN #20 tablet PRN Reason: Pain Discharge Date/Time: 07/25/18 08:13
[2018-07-25 06:27] LABS: ALBUMIN 3.6 g/dL (3.2-5.5); ALBUMIN/GLOBULIN RATIO 1.2 (1.0-2.2); BILIRUBIN,TOTAL 0.6 mg/dL (0.2-1.0); CALCIUM 9.6 mg/dL (8.5-10.3); CREATININE 0.8 mg/dL (0.4-1.0); TOTAL PROTEIN 6.6 g/dL (6.7-8.2)
[2018-07-25] MEDS ORDERED: PIPERACILLIN/TAZOBACTAM 3.375 GM in SODIUM CHLORIDE 0.9% MINIBAG 100 ML IV STA (06:28)
[2018-07-25] MEDS ORDERED: HYDROmorphone 1 MG/ML CARPUJECT IVP STA ×2 (06:28→07:28)
[2018-07-25] MEDS ORDERED: ONDANSETRON 4 MG/2 ML VIAL IVP STA (06:28)
[2018-07-25] MEDS ORDERED: SODIUM CHLORIDE 0.9% 1,000 ML IV STA (06:30)
[2018-07-25] MEDS ORDERED: oxyCODONE 5 MG TABLET PO STA (07:59)
[2018-07-25] MEDS ORDERED: ONDANSETRON ODT 4 MG TABLET TL STA (08:05)
[2018-07-25 08:13] VITALS: BP 130/96
== END 2018-07-25 08:13 | disposition home or self-care (01) ==
LOC: ED 05:18
DX: K57.92 Diverticulitis of intestine, part unspecified, without perforation or abscess without bleeding (principal); I10 Essential (primary) hypertension; E03.9 Hypothyroidism, unspecified; Z85.3 Personal history of malignant neoplasm of breast; Z90.10 Acquired absence of unspecified breast and nipple
CPT/HCPCS: 36415; 80053; 83690; 85025; 96365; 96375; 96376; 99283; 99284; A9270; J1170; Q0162

== ENCOUNTER 2018-07-27 12:47 | Inpatient (IN) | payer OTHER ==
[2018-07-27] MEDS ORDERED: PIPERACILLIN/TAZOBACTAM 3.375 GM in SODIUM CHLORIDE 0.9% MINIBAG 100 ML IV STA (13:53)
[2018-07-27] MEDS ORDERED: HYDROmorphone 1 MG/ML CARPUJECT IVP STA ×2 (13:53→14:46)
[2018-07-27] MEDS ORDERED: ONDANSETRON 4 MG/2 ML VIAL IVP STA (13:53)
--- NOTE | 2018-07-27 13:56 | ED Physician Documentation ---
PD HPI ABD PAIN - Stated complaint Stated Complaint: LOWER ABD PX - Chief complaint Chief Complaint: Abd Pain - History obtained from History obtained from: Patient - History of Present Illness Timing - onset: Other (58-year-old woman who is well-known to me in this emergency department. She has recurrent diverticulitis with history of perforation although never operated on. She has had 4 days of left lower quadrant pain consistent with prior episodes of diverticulitis. She was seen here 3 days ago and placed on Cipro and Flagyl but her pain is now worse. She has had mostly normal bowel movements but had diarrhea without hematochezia last night.) Review of Systems Unable to obtain: Uncooperative Constitutional: reports: Fatigue GI: reports: Abdominal Pain, Nausea, Diarrhea. 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 : None HEENT: None Psych: Depression, Anxiety, ADD/ADHD Musculoskeletal: Osteoarthritis, Chronic back pain Derm: None - Past Surgical History Past Surgical History: Yes General: Appendectomy Ortho: Spine surgery /CLINICAL RESEARCH NURSE: Mastectomy - Present Medications Home Medications: Ambulatory Orders Medication Instructions Recorded Confirmed Venlafaxine HCl [Venlafaxine HCl 75 mg PO QPM 06/17/17 07/25/18 ER] hydroCHLOROthiazide 25 mg PO DAILY 08/10/17 07/25/18 [Hydrochlorothiazide] Albuterol Sulfate [Proair 2 puffs INH Q4H PRN 03/02/18 07/25/18 Respiclick] Cyclobenzaprine [Flexeril] 10 mg PO QPM PRN 03/02/18 07/25/18 Morphine Sulfate [Morphine Sulfate 30 mg PO QPM 03/02/18 07/25/18 ER] Ondansetron HCl [Zofran] 4 - 8 mg PO DAILY PRN 03/02/18 07/25/18 Oxycodone HCl [Roxicodone] 15 mg PO Q4H PRN MDD 5 tabs 03/02/18 07/25/18 Thyroid,Pork [[place] Thyroid] 120 mg PO QDAC 03/02/18 07/25/18 Venlafaxine HCl [Venlafaxine HCl 150 mg PO DAILY 03/02/18 07/25/18 ER] traZODone [Desyrel] 200 mg PO HS PRN 03/02/18 07/25/18 Lisinopril 20 mg PO DAILY #30 tablet 03/13/18 07/25/18 Cephalexin [Keflex] 500 mg PO TID #21 capsule 04/24/18 07/25/18 Metronidazole [Flagyl] 500 mg PO BID #14 tablet 04/24/18 07/25/18 Naproxen 375 mg PO BID #20 tablet 04/24/18 07/25/18 Ondansetron Odt [Zofran] 4 mg TL Q6H PRN #10 tablet 05/23/18 07/25/18 Oxycodone HCl/Acetaminophen 1 - 2 each PO Q6H PRN #14 tablet 05/23/18 07/25/18 [Percocet 5-325 mg Tablet] Oxycodone HCl/Acetaminophen 1 - 2 each PO Q6H PRN #14 tablet 06/17/18 07/25/18 [Percocet 5-325 mg Tablet] Ciprofloxacin HCl [Cipro] 500 mg PO BID #20 tablet 07/25/18 Metronidazole [Flagyl] 500 mg PO BID #20 tablet 07/25/18 Ondansetron Odt [Zofran] 4 mg TL Q6H PRN #10 tablet 07/25/18 oxyCODONE [Roxicodone] 5 - 10 mg PO Q6H PRN #20 tablet 07/25/18 - Allergies Allergies/Adverse Reactions: Allergies Allergy/AdvReac Type Severity Reaction Status Date / Time adhesive tape Allergy Rash Verified 07/25/18 05:27 latex Allergy Rash Verified 07/25/18 05:27 hydrocodone bitartrate * AdvReac Itching Verified 07/25/18 05:27 [From Vicodin] - Social History Does the pt smoke?: No Smoking Status: Never smoker Does the pt drink ETOH?: No Does the pt have substance abuse?: No - Family History Family history: reports: Non contributory - Immunizations Immunizations are current?: Yes - POLST Patient has POLST: No POLST Status: Full Code PD ED PE NORMAL - Vitals Vital signs reviewed: Yes - General General: Alert and oriented X 3, Other (Appears uncomfortable) - HEENT HEENT: PERRL, EOMI - Neck Neck: Supple, no meningeal sign, No bony TTP - Cardiac Cardiac: RRR, No murmur - Respiratory Respiratory: No respiratory distress, Clear bilaterally - Abdomen Abdomen: Normal bowel sounds, Soft, Other (Moderate tender to palpation in the left lower quadrant without surgical signs) - Back Back: No CVA TTP, No spinal TTP - Derm Derm: Normal color, Warm and dry - Neuro Neuro: Alert and oriented X 3, Normal speech - Psych Psych: Normal mood, Normal affect Results - Vitals Vitals: Vital Signs - 24 hr 07/27/18 13:05 Temperature 37.5 C Heart Rate 90 Respiratory 18 Rate Blood Pressure 149/109 H O2 Saturation 96 Oxygen O2 Source Room air - Labs Labs: Laboratory Tests 07/27/18 07/27/18 14:05 14:05 WBC 11.1 H RBC 4.46 Hgb 13.9 Hct 40.3 MCV 90.5 MCH 31.2 H MCHC 34.5 RDW 13.2 Plt Count 274 MPV 7.4 L Neut # (Auto) 7.6 H Lymph # (Auto) 2.6 [place] # (Auto) 0.6 Eos # (Auto) 0.3 Baso # (Auto) 0.1 Absolute Nucleated RBC 0.00 Nucleated RBC % 0.0 Sodium 138 Potassium 4.3 Chloride 105 Carbon Dioxide 24 Anion Gap 9.0 BUN 14 Creatinine 0.6 Estimated GFR (MDRD) 103 Glucose 102 H Calcium 9.6 Total Bilirubin 0.4 AST 19 ALT 19 Alkaline Phosphatase 82 Total Protein 7.6 Albumin 3.8 Globulin 3.8 Albumin/Globulin Ratio 1.0 Lipase 25 - Rads (name of study) CT A/P Radiology: EMP read contemporaneously (C/W sigmoid diverticulitis) PD MEDICAL DECISION MAKING - ED course ED course: This is a 58-year-old woman with recurrent sigmoid diverticulitis who bounces back with uncontrolled pain after a visit 2 days ago already on Cipro and Flagyl. CT shows no wide perforation or abscess. I notified Dr. Newman who is her surgeon as a courtesy although there is no urgent indication for surgery. Also Dr. Ray for admission given the uncontrolled pain as an outpatient at 3:25 PM. Departure - Departure Disposition: [facility] DC/Xfer Clinical Impression: Diverticulitis Qualifiers: Diverticulitis site: large intestine Diverticulitis bleeding: without bleeding Diverticulitis complication: without perforation or abscess Qualified Code(s): K57.32 - Diverticulitis of large intestine without perforation or abscess without bleeding Condition: Serious
[2018-07-27] MEDS ORDERED: IOPAMIDOL-300 100 ML VIAL ONE (13:59)
[2018-07-27 14:11] LABS: BASOPHILS # (AUTO) 0.1 10^3/uL (0.0-0.1); BASOPHILS % (AUTO) 0.9 %; EOSINOPHILS # (AUTO) 0.3 10^3/uL (0.0-0.7); EOSINOPHILS % (AUTO) 2.3 %; HGB - HEMOGLOBIN 13.9 g/dL (12.0-16.0); LYMPHOCYTES # (AUTO) 2.6 10^3/uL (1.5-3.5); LYMPHOCYTES % (AUTO) 23.1 %; MEAN CORPUSCULAR HEMOGLOBIN 31.2 pg (27.0-31.0); MEAN CORPUSCULAR HGB CONC 34.5 g/dL (32.0-36.0); MEAN CORPUSCULAR VOLUME 90.5 fL (81.0-99.0); MEAN PLATELET VOLUME 7.4 fL (7.9-10.8); MONOCYTES # (AUTO) 0.6 10^3/uL (0.0-1.0); MONOCYTES % (AUTO) 5.5 %; NEUTROPHILS # (AUTO) 7.6 10^3/uL (1.5-6.6); NEUTROPHILS % (AUTO) 68.2 %; PLT - PLATELET COUNT 274 10^3/uL (130-450); RED BLOOD COUNT 4.46 10^6/uL (4.20-5.40); RED CELL DISTRIBUTION WIDTH 13.2 % (12.0-15.0); WHITE BLOOD COUNT 11.1 x10^3/uL (4.8-10.8)
[2018-07-27 14:24] LABS: ALBUMIN 3.8 g/dL (3.2-5.5); BILIRUBIN,TOTAL 0.4 mg/dL (0.2-1.0); CALCIUM 9.6 mg/dL (8.5-10.3); CREATININE 0.6 mg/dL (0.4-1.0); TOTAL PROTEIN 7.6 g/dL (6.7-8.2)
[2018-07-27] MEDS ORDERED: IOPAMIDOL-300 100 ML VIAL IVP ONE (14:58)
--- NOTE | 2018-07-27 15:17 | CT Report ---
Reason: IV only, LLq pain, prob diverticulitis Procedure Date: 07/27/2018 Accession Number: [id number] / [id number] Procedure: CT - Abdomen/Pelvis W/ CPT Code: FULL RESULT: EXAM: CT ABDOMEN AND PELVIS EXAM DATE: 07/27/2018 02:55 PM. CLINICAL HISTORY: IV only, left lower quadrant pain, probably diverticulitis. COMPARISONS: ABDOMEN/PELVIS W/ 05/23/2018 11:02 PM. TECHNIQUE: Routine helical CT imaging was performed through the abdomen and pelvis. IV contrast: ISOVUE 300 100mL. Enteric contrast: No. Reconstructions: Coronal and sagittal. In accordance with CT protocol optimization, one or more of the following dose reduction techniques were utilized for this exam: automated exposure control, adjustment of mA and/or KV based on patient size, or use of iterative reconstructive technique. FINDINGS: Lung Bases: Unremarkable. Liver: Normal. No masses. Gallbladder/Bile Ducts: Unremarkable. Spleen: Normal. Pancreas: Normal. Adrenal Glands: Normal. Kidneys: Normal. No masses or hydronephrosis. Peritoneal Cavity/Bowel: There is focal fat stranding and wall thickening of a segment of the sigmoid colon in the left hemipelvis surrounding a cluster of diverticuli consistent with diverticulitis without abscess formation. There is distortion of this portion of the sigmoid colon with soft tissue bands likely representing adhesions from prior bouts of inflammation. No free fluid, free air or adenopathy. No masses. Pelvic Organs: The bladder and visualized pelvic organs are within normal limits. Vasculature: No aneurysms or other significant abnormality. Bones: Postoperative lumbar spine with expected degenerative changes is essentially stable. No aggressive osseous lesions. Other: None. IMPRESSION: Diverticulitis without abscess formation. [facility] CRITICAL RESULT: The findings were discussed with Dr. Beltran on 07/27/2018 at 3:15 PM.
[2018-07-27] MEDS ORDERED: KETOROLAC 60 MG/2 ML VIAL IVP STA (15:26)
[2018-07-27] MEDS ORDERED: CYCLOBENZAPRINE 10 MG TABLET PO PRN (15:26)
[2018-07-27] MEDS ORDERED: traZODone 50 MG TABLET PO PRN (15:26)
[2018-07-27] MEDS ORDERED: oxyCODONE 5 MG TABLET PO PRN (15:27)
[2018-07-27] MEDS ORDERED: ZOLPIDEM 5 MG TABLET PO PRN (15:27)
[2018-07-27] MEDS ORDERED: ACETAMINOPHEN 325 MG TABLET PO PRN (15:27)
[2018-07-27] MEDS ORDERED: HYDROmorphone 1 MG/ML CARPUJECT IVP PRN (15:27)
[2018-07-27] MEDS ORDERED: PROMETHAZINE 25 MG/1 ML VIAL IM PRN (15:27)
--- NOTE | 2018-07-27 15:33 | HISTORY & PHYSICAL EXAMINATION ---
Chief Complaint - Chief Complaint Chief Complaint: Abdominal Pain History of Present Illness - Admitted From Admitted From:: Emergency Department - History Obtained From Records Reviewed: Yes History obtained from: Patient Exam Limitations: None - History of Present Illness HPI Comment/Other: Patient is a 58-year-old female with a past medical history significant for breast cancer status post radical bilateral mastectomy, chemotherapy and radiation therapy, history of A. tach back surgeries with most recent being fusion of the spine in 2012 with chronic back pain on opioids, hypertension, depression, asthma, hypothyroidism and history of recurrent episodes of diverticulitis who presented to the emergency department with a chief complaint of abdominal pain. The patient states that her symptoms started about 4 days ago. She states that that time she began having left lower quadrant abdominal pain along with nausea. The patient states that the pain is up to a 10 out of 10 prior to presentation to the ER. She states that it radiates up into the left upper quadrant and across into the epigastric area. She states that it has not gotten better with her oral pain medication. She states that she came to the [facility] department on 07/25/2018 and at that time was examined and thought to have another episode of diverticulitis. She states that she was placed on oral antibiotics and given medications for pain control. She states after returning home she was not improving. She states that yesterday all day she had persistent nausea and vomiting. She states that she also had several episodes of diarrhea. She states her abdominal pain became progressively worse throughout the day. She states that she tried to take her pain medication to keep things controlled. She states that when she woke up this morning the pain was out of control and continued to worsen with continued nausea so she finally decided to come back to the emergency department. The patient denies any fevers or chills. She denies any urinary urgency frequency or dysuria. She denies any night sweats. The patient states that she has had no appetite the last 2 days has been unable to keep anything down for at least the last day. Patient denies any headaches, blurred vision, runny nose, sore throat, nasal congestion, difficulty swallowing, chest pain, orthopnea, PND, increased lower extremity swelling, shortness of air, joint pain, joint swelling, muscle aches, neck stiffness, recent unintentional weight loss, polyuria, polydipsia, skin changes, dizziness, syncope, palpitations, hair loss or any focal neurologic deficits. On presentation to the emergency department the patient was afebrile, tachycardic with heart rate up to 100 and hypertensive with blood pressure of 149/109. She was not in any respiratory distress but did appear to be in significant distress due to her abdominal pain. The patient underwent routine lab work which did reveal a mild leukocytosis with a WBC of 11.1 which was elevated from her previous WBC 2 days earlier of 7.4. The patient's electrolytes were within normal limits. The patient underwent a CT of her abdomen and pelvis which revealed focal fat stranding and wall thickening of a segment of the sigmoid colon in the left hemipelvis surrounding a cluster of diverticuli consistent with diverticulitis without abscess formation. Given the patient's persistent symptoms despite outpatient treatment for diverticulitis the patient was admitted to the hospital for treatment of diverticulitis with IV antibiotics. History - Past Medical History Cardiovascular: reports: Hypertension Respiratory: reports: Asthma, Shortness of breath Neuro: reports: Headaches, Motion sickness Endocrine/Autoimmune: reports: HyPOthyroidism GI: reports: Diverticulitis DROP MAN: reports: Breast cancer (Status post radical bilateral mastectomies, chemotherapy and radiation) : reports: None HEENT: reports: None Psych: reports: Depression, Anxiety, ADD/ADHD Musculoskeletal: reports: Osteoarthritis, Chronic back pain Derm: reports: None MRSA Hx?: No - Past Surgical History General: reports: Appendectomy Ortho: reports: Spine surgery /DROP MAN: reports: Mastectomy - Family & Social History Family History: Mother: Alive and Well (Mother has macular degeneration 90 years old.), Father: , Cancer Family History Comment/Other: The patient says her siblings are all alive and well. There is a history of hypertension, there is no known history of myocardial infarction, coronary artery disease, diabetes mellitus, or strokes. Social History Notes: The patient is , She has 1 adopted son. 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 She lives on [address] with a roommate and shares a house. 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 She denies any current use of tobacco, alcohol or recreational drugs. - Substance History Use: Uses substance without health or social issues: NONE - POLST Patient has POLST: No POLST Status: Full Code Meds/Allgy - Home Medications Home Medications: Ambulatory Orders Medication Instructions Recorded Confirmed Venlafaxine HCl [Venlafaxine HCl 75 mg PO QPM 06/17/17 07/25/18 ER] hydroCHLOROthiazide 25 mg PO DAILY 08/10/17 07/25/18 [Hydrochlorothiazide] Albuterol Sulfate [Proair 2 puffs INH Q4H PRN 03/02/18 07/25/18 Respiclick] Thyroid,Pork [Magna Thyroid] 120 mg PO QDAC 03/02/18 07/25/18 Venlafaxine HCl [Venlafaxine HCl 150 mg PO DAILY 03/02/18 07/25/18 ER] traZODone [Desyrel] 200 mg PO HS PRN 03/02/18 07/25/18 Naproxen 375 mg PO BID #20 tablet 04/24/18 07/25/18 Ciprofloxacin HCl [Cipro] 500 mg PO BID #20 tablet 07/25/18 07/27/18 Ondansetron Odt [Zofran] 4 mg TL Q6H PRN #10 tablet 07/25/18 07/27/18 Lisinopril 5 mg PO DAILY 07/27/18 07/27/18 Morphine ER [Ms Contin] 30 mg PO UD 07/27/18 07/27/18 Oxycodone HCl 10 mg PO DAILY 07/27/18 07/27/18 metroNIDAZOLE [Flagyl] 500 mg PO BID 07/27/18 07/27/18 oxyCODONE [Roxicodone] 5 - 10 mg PO Q6H PRN 07/27/18 07/27/18 - Allergies Allergies/Adverse Reactions: Allergies Allergy/AdvReac Type Severity Reaction Status Date / Time adhesive tape Allergy Rash Verified 07/25/18 05:27 latex Allergy Rash Verified 07/25/18 05:27 hydrocodone bitartrate * AdvReac Itching Verified 07/25/18 05:27 [From Vicodin] Review of Systems - Other Findings Other Findings: A comprehensive review of systems was performed the pertinent positives and negatives are stated above in the HPI and the remainder of the review of systems is negative. Prior Level of Functionality: Patient is completely independent with her activities of daily living Exam - Vital Signs Reviewed Vital Signs: Yes Vital Signs: Vital Signs x48h Temp Pulse Resp BP Pulse Ox 07/27/18 13:05 37.5 C 90 18 149/109 H 96 - Physical Exam General Appearance: positive: Alert, Mild distress (Secondary to abdominal pain) Eyes Bilateral: positive: Normal inspection, PERRL, EOMI, No lid inflammation, Conjunctivae nml, No scleral icterus ENT: positive: ENT inspection nml, Pharynx nml, No signs of dehydration. negative: Purulent nasal drainage, Pharyngeal erythema, Oral lesions Neck: positive: Nml inspection, Thyroid nml, No JVD, Trachea midline. negative: Lymphadenopathy (R), Lymphadenopathy (L) Respiratory: positive: Chest non-tender, No respiratory distress, Breath sounds nml Cardiovascular: positive: Regular rate & rhythm, No murmur, No gallop Peripheral Pulses: positive: 2+ Abdomen: positive: No organomegaly, Nml bowel sounds, No distention, Tenderness (Tenderness mostly in the left lower quadrant but patient's belly is tender all over. There is no guarding, rebound or any peritoneal signs. The abdomen is soft.). negative: Guarding, Rebound, Hepatomegaly Back: positive: Nml inspection. negative: CVA tenderness (R), CVA tenderness (L) Skin: positive: Color nml, No rash, Warm, Dry. negative: Diaphoresis, Pallor, Skin rash Extremities: positive: Non-tender, Full ROM, Nml appearance, No pedal edema Neurologic/Psychiatric: positive: Oriented x3, CN's nml (2-12), Motor nml, Sensation nml, Mood/affect nml Conclusion/Plan - Problem List (1) Diverticulitis Conclusion/Plan: Patient presents with left lower quadrant abdominal pain similar to previous episodes of diverticulitis. Patient has associated nausea and vomiting. P atient has had poor oral intake with poor appetite the last 24 hours. Patient had symptoms that started over initially 4 days ago and presented to the ER 2 days ago was given oral antibiotics. Despite receiving oral antibiotics patient had worsening of symptoms. She returns to the emergency department with failed outpatient treatment for diverticulitis. The patient's CT scan confirms sigmoid diverticulitis without any perforation or abscess. Patient is being admitted for treatment with IV antibiotics. Plan: IV ceftriaxone and Flagyl IV fluids Electrolyte replacement IV Antiemetics for control of nausea IV Dilaudid for pain control Patient will need to follow-up with surgery as an outpatient to consider an elective colectomy given the recurrent diverticulitis. Qualifiers: Diverticulitis site: large intestine Diverticulitis bleeding: without bleeding Diverticulitis complication: without perforation or abscess Qualified Code(s): K57.32 - Diverticulitis of large intestine without perforation or abscess without bleeding (2) Hypertension Conclusion/Plan: The patient has a history of hypertension and on presentation the patient's blood pressure is elevated. Likely the patient's blood pressure is elevated on presentation secondary to pain. We will attempt to control the patient's pain and monitor the patient's blood pressure. Patient will be continued on her home antihypertensive medications. We will monitor blood pressure and titrate medication as needed. Qualifiers: Hypertension type: essential hypertension (3) Chronic back pain Conclusion/Plan: Patient has chronic back pain and takes MS Contin 30 mg nightly along with oxycodone 15 mg as needed throughout the day. Patient states that these medications help to control her back pain. The patient will be continued on these medications while she is hospitalized. Currently she states her back pain is stable but she is having significant abdominal pain. The patient has had 8 different surgeries on her spine. Qualifiers: Back pain location: low back pain Back pain laterality: bilateral (4) Hypothyroidism Conclusion/Plan: The patient has a history of hypothyroidism and uses Magna Thyroid at home. We will continue her home dose of thyroid medication while she is hospitalized. We will check a TSH in the morning. Qualifiers: Hypothyroidism type: unspecified Qualified Code(s): E03.9 - Hypothyroidism, unspecified (5) Depression Conclusion/Plan: The patient has a history of depression and uses Effexor at home. We will continue the patient's home dose of Effexor while she is hospitalized. 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 She states that she takes an inhaler when needed. Currently she is stable. The patient will be placed on albuterol as needed while she is hospitalized. Qualifiers: Asthma severity: mild Asthma persistence: intermittent Asthma c omplication type: unspecified Qualified Code(s): J45.20 - Mild intermittent asthma, uncomplicated - Lab Results Lab results reviewed: Yes Fish Bones: 07/27/18 14:05 07/27/18 14:05 Other Lab Results: Laboratory Results WBC 11.1 x10^3/uL (4.8-10.8) H 07/27/18 14:05 RBC 4.46 10^6/uL (4.20-5.40) 07/27/18 14:05 Hgb 13.9 g/dL (12.0-16.0) 07/27/18 14:05 Hct 40.3 % (37.0-47.0) 07/27/18 14:05 MCV 90.5 fL (81.0-99.0) 07/27/18 14:05 MCH 31.2 pg (27.0-31.0) H 07/27/18 14:05 MCHC 34.5 g/dL (32.0-36.0) 07/27/18 14:05 RDW 13.2 % (12.0-15.0) 07/27/18 14:05 Plt Count 274 10^3/uL (130-450) 07/27/18 14:05 MPV 7.4 fL (7.9-10.8) L 07/27/18 14:05 Neut # (Auto) 7.6 10^3/uL (1.5-6.6) H 07/27/18 14:05 Lymph # (Auto) 2.6 10^3/uL (1.5-3.5) 07/27/18 14:05 [place] # (Auto) 0.6 10^3/uL (0.0-1.0) 07/27/18 14:05 Eos # (Auto) 0.3 10^3/uL (0.0-0.7) 07/27/18 14:05 Baso # (Auto) 0.1 10^3/uL (0.0-0.1) 07/27/18 14:05 Absolute Nucleated RBC 0.00 x10^3/uL 07/27/18 14:05 Nucleated RBC % 0.0 /100WBC 07/27/18 14:05 Sodium 138 mmol/L (135-145) 07/27/18 14:05 Potassium 4.3 mmol/L (3.5-5.0) 07/27/18 14:05 Chloride 105 mmol/L (101-111) 07/27/18 14:05 Carbon Dioxide 24 mmol/L (21-32) 07/27/18 14:05 Anion Gap 9.0 (6-13) 07/27/18 14:05 BUN 14 mg/dL (6-20) 07/27/18 14:05 Creatinine 0.6 mg/dL (0.4-1.0) 07/27/18 14:05 Estimated GFR (MDRD) 103 (>89) 07/27/18 14:05 Glucose 102 mg/dL (70-100) H 07/27/18 14:05 Calcium 9.6 mg/dL (8.5-10.3) 07/27/18 14:05 Total Bilirubin 0.4 mg/dL (0.2-1.0) 07/27/18 14:05 AST 19 IU/L (10-42) 07/27/18 14:05 ALT 19 IU/L (10-60) 07/27/18 14:05 Alkaline Phosphatase 82 IU/L (42-121) 07/27/18 14:05 Total Protein 7.6 g/dL (6.7-8.2) 07/27/18 14:05 Albumin 3.8 g/dL (3.2-5.5) 07/27/18 14:05 Globulin 3.8 g/dL (2.1-4.2) 07/27/18 14:05 Albumin/Globulin Ratio 1.0 (1.0-2.2) 07/27/18 14:05 Lipase 25 U/L (22-51) 07/27/18 14:05 - Diagnostic Imaging Results Diagnostic Imaging Results: positive: Final report reviewed Diagnostic Imaging Results Comments: CT abdomen/pelvis Impression: Diverticulitis without abscess formation. Core Measures - Anticipated LOS I expect patient to be DC'd or transferred within 96 hours.: Yes - DVT/VTE - Prophylaxis VTE/DVT Prophylaxis med ordered at admit?: Yes
[2018-07-27] MEDS: SODIUM CHLORIDE FLUSH 0.9% 10 ML SYRINGE IVP SCH ×2 (16:42→23:50)
[2018-07-27] MEDS: oxyCODONE 5 MG TABLET PO PRN ×2 (16:42→20:43)
[2018-07-27] MEDS: metroNIDAZOLE 500 MG/100 ML 500 MG/100 ML BAG IV SCH ×2 (16:42→23:51)
[2018-07-27] MEDS: SODIUM CHLORIDE 0.9% 1,000 ML IV SCH (16:42)
[2018-07-27] MEDS ORDERED: ALBUTEROL NEB 2.5 MG/3 ML INH PRN (18:13)
[2018-07-27] MEDS: HYDROmorphone 1 MG/ML CARPUJECT IVP PRN ×3 (18:25→23:50)
[2018-07-27 18:46] LABS: BILIRUBIN,URINE NEGATIVE (NEGATIVE); GLUCOSE, URINE (UA) NEGATIVE (NEGATIVE); KETONES,URINE (UA) NEGATIVE (NEGATIVE); LEUKOCYTE ESTERASE, URINE NEGATIVE (NEGATIVE); NITRITE,URINE NEGATIVE (NEGATIVE); OCCULT BLOOD,URINE NEGATIVE (NEGATIVE); PROTEIN,URINE NEGATIVE (NEGATIVE); UROBILINOGEN,URINE 0.2 (NORMAL) E.U./dL (NORMAL)
[2018-07-27 18:47] LABS: CLARITY,URINE CLEAR (CLEAR)
[2018-07-27] MEDS: FAMOTIDINE 20 MG TABLET PO SCH (20:47)
[2018-07-27] MEDS: MORPHINE ER 15 MG TABLET PO SCH (20:47)
[2018-07-27] MEDS: VENLAFAXINE ER 75 MG CAPSULE PO SCH (20:47)
[2018-07-27] MEDS: SODIUM CHLORIDE FLUSH 0.9% 10 ML SYRINGE IVP PRN (23:58)
[2018-07-27] MEDS: ONDANSETRON 4 MG/2 ML VIAL IVP PRN (23:58)
[2018-07-28] MEDS: HYDROmorphone 1 MG/ML CARPUJECT IVP PRN ×7 (02:49→19:55)
[2018-07-28] MEDS: SODIUM CHLORIDE FLUSH 0.9% 10 ML SYRINGE IVP PRN ×5 (02:50→19:55)
[2018-07-28] MEDS: oxyCODONE 5 MG TABLET PO PRN ×4 (04:21→20:50)
[2018-07-28] MEDS: SODIUM CHLORIDE 0.9% 1,000 ML IV SCH ×2 (04:27→15:57)
[2018-07-28 05:50] LABS: BASOPHILS # (AUTO) 0.1 10^3/uL (0.0-0.1); BASOPHILS % (AUTO) 1.1 %; EOSINOPHILS # (AUTO) 0.2 10^3/uL (0.0-0.7); EOSINOPHILS % (AUTO) 4.2 %; HGB - HEMOGLOBIN 12.5 g/dL (12.0-16.0); LYMPHOCYTES # (AUTO) 1.3 10^3/uL (1.5-3.5); MEAN CORPUSCULAR HEMOGLOBIN 31.4 pg (27.0-31.0); MEAN CORPUSCULAR HGB CONC 33.6 g/dL (32.0-36.0); MEAN CORPUSCULAR VOLUME 93.5 fL (81.0-99.0); MEAN PLATELET VOLUME 7.2 fL (7.9-10.8); MONOCYTES # (AUTO) 0.4 10^3/uL (0.0-1.0); MONOCYTES % (AUTO) 8.3 %; NEUTROPHILS % (AUTO) 60.4 %; PLT - PLATELET COUNT 197 10^3/uL (130-450); RED BLOOD COUNT 3.98 10^6/uL (4.20-5.40); RED CELL DISTRIBUTION WIDTH 13.3 % (12.0-15.0)
[2018-07-28 05:56] LABS: INR 1.1 (0.8-1.2)
[2018-07-28 06:04] LABS: ALBUMIN 3.6 g/dL (3.2-5.5); ALBUMIN/GLOBULIN RATIO 1.4 (1.0-2.2); BILIRUBIN,TOTAL 0.7 mg/dL (0.2-1.0); CALCIUM 8.4 mg/dL (8.5-10.3); CREATININE 0.6 mg/dL (0.4-1.0); PHOSPHORUS 3.1 mg/dL (2.5-4.6); TOTAL PROTEIN 6.2 g/dL (6.7-8.2)
[2018-07-28] MEDS: THYROID 60 MG TABLET PO SCH (06:08)
[2018-07-28] MEDS: SODIUM CHLORIDE FLUSH 0.9% 10 ML SYRINGE IVP SCH ×2 (07:12→15:57)
[2018-07-28] MEDS: POLYETHYLENE GLYCOL 3350 17 GM PACKET PO SCH (07:12)
[2018-07-28] MEDS: ONDANSETRON 4 MG/2 ML VIAL IVP PRN (07:49)
[2018-07-28] MEDS: VENLAFAXINE ER 75 MG CAPSULE PO SCH ×2 (09:02→20:49)
[2018-07-28] MEDS: LISINOPRIL 20 MG TABLET PO SCH (09:02)
[2018-07-28] MEDS: FAMOTIDINE 20 MG TABLET PO SCH ×2 (09:02→20:50)
[2018-07-28] MEDS: hydroCHLOROthiazide 25 MG TABLET PO SCH (09:02)
[2018-07-28] MEDS: ENOXAPARIN 40 MG/0.4 ML SYRINGE SUBQ SCH (09:03)
[2018-07-28] MEDS: metroNIDAZOLE 500 MG/100 ML 500 MG/100 ML BAG IV SCH ×2 (09:03→15:57)
[2018-07-28] MEDS: PROCHLORPERAZINE 10 MG/2 ML VIAL IVP PRN ×2 (09:17→17:04)
[2018-07-28] MEDS: cefTRIAXone 2 GM in SODIUM CHLORIDE 0.9% MINIBAG 100 ML IV SCH (10:21)
--- NOTE | 2018-07-28 16:51 | PROVIDER PROGRESS NOTE ---
Assessment/Plan - Problem List (1) Diverticulitis Qualifiers: Diverticulitis site: large intestine Diverticulitis bleeding: without bleeding Diverticulitis complication: without perforation or abscess Qualified Code(s): K57.32 - Diverticulitis of large intestine without perforation or abscess without bleeding Assessment/Plan: Patient presents with left lower quadrant abdominal pain similar to previous episodes of diverticulitis. Patient has associated nausea and vomiting. Patient has had poor oral intake with poor appetite the last 24 hours. Patient had symptoms that started over initially 4 days ago and presented to the ER 2 days ago was given oral antibiotics. Despite receiving oral antibiotics patient had worsening of symptoms. She returns to the emergency department with failed outpatient treatment for diverticulitis. The patient's CT scan confirms sigmoid diverticulitis without any perforation or abscess. Patient is being admitted for treatment with IV antibiotics. WBC improved, no fevers but patient continues to have abdominal pain and tenderness only mildly improved. Plan: IV ceftriaxone and Flagyl day 2 IV fluids Full liquid diet Electrolyte replacement IV Antiemetics for control of nausea IV Dilaudid for pain control Patient will need to follow-up with surgery as an outpatient to consider an elective colectomy given the recurrent diverticulitis. Patient likely needs 1-2 days more of IV abx. (2) Hypertension Conclusion/Plan: Resumed home meds Patients BP well controlled today Qualifiers: Hypertension type: essential hypertension (3) Chronic back pain Conclusion/Plan: Patient has chronic back pain and takes MS Contin 30 mg nightly along with oxycodone 15 mg as needed throughout the day. Patient states that these medications help to control her back pain. Controlled Qualifiers: Back pain location: low back pain Back pain laterality: bilateral (4) Hypothyroidism Conclusion/Plan: The patient has a history of hypothyroidism and uses [facility] [place] [facility] at home. We will continue her home dose of thyroid medication while she is hospitalized. TSH normal 3.07 Qualifiers: Hypothyroidism type: unspecified Qualified Code(s): E03.9 - Hypothyroidism, unspecified (5) Depression Conclusion/Plan: The patient has a history of depression and uses Effexor at home. We will continue the patient's home dose of Effexor while she is hospitalized. 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 She states that she takes an inhaler when needed. Currently she is stable. The patient will be placed on albuterol as needed while she is hospitalized. Qualifiers: Asthma severity: mild Asthma persistence: intermittent Asthma complication type: unspecified Qualified Code(s): J45.20 - Mild intermittent asthma, uncomplicated - Current Meds Current Meds: Current Medications Generic Name Dose Route Start Last Admin Trade Name Freq PRN Reason Stop Dose Admin Cyclobenzaprine HCl 10 mg 07/27/18 15:26 07/27/18 20:43 Flexeril PO 10 mg QPM PRN Administration Spasms Enoxaparin Sodium 40 mg 07/28/18 09:00 07/28/18 09:03 Lovenox SUBQ 40 mg DAILY TERESA Administration Famotidine 20 mg 07/27/18 21:00 07/28/18 09:02 Pepcid PO 20 mg BID TERESA Administration Hydrochlorothiazide 25 mg 07/28/18 09:00 07/28/18 09:02 Hydrodiuril PO 25 mg DAILY TERESA Administration Hydromorphone HCl 2 mg 07/27/18 18:02 07/28/18 14:54 Dilaudid Inj Carp IVP 2 mg Q2HR PRN Administration Pain 8 to 10 Ceftriaxone Sodium 2 gm/ 100 mls @ 200 mls/hr 07/28/18 09:00 07/28/18 11:36 Sodium Chloride IV Infused DAILY TERESA Infusion Metronidazole 500 mg in 100 mls @ 100 mls/hr 07/27/18 16:00 07/28/18 15:57 Flagyl 500 Mg/100 Ml IV 100 mls/hr Q8H TERESA Administration Sodium Chloride 1,000 mls @ 100 mls/hr 07/27/18 16:00 07/28/18 15:57 Normal Saline 0.9% IV 100 mls/hr .Q10H TERESA Administration Lisinopril 20 mg 07/28/18 09:00 07/28/18 09:02 Zestril PO 20 mg DAILY TERESA Administration Morphine Sulfate 30 mg 07/27/18 21:00 07/27/18 20:47 PO 30 mg QPM TERESA Administration Ondansetron HCl 4 mg 07/27/18 15:27 07/28/18 07:49 Zofran Inj IVP 4 mg Q6HR PRN Administration Nausea / Vomiting Oxycodone HCl 15 mg 07/27/18 15:27 07/28/18 13:02 Roxicodone PO 15 mg Q4HR PRN Administration Pain 8 to 10 Polyethylene Glycol 17 gm 07/28/18 09:00 07/28/18 07:12 Miralax PO Not Given DAILY TERESA Prochlorperazine Edisylate 10 mg 07/27/18 15:27 07/28/18 09:17 Compazine Inj IVP 10 mg Q6HR PRN Administration Nausea / Vomiting Sodium Chloride 10 ml 07/27/18 15:27 07/28/18 14:54 Normal Saline Flush 0.9% IVP 10 ml PRN PRN Administration NEEDED PER PROVIDER ORDERS Sodium Chloride 10 ml 07/27/18 17:00 07/28/18 15:57 Normal Saline Flush 0.9% IVP Not Given 0100,0900,1700 TERESA Thyroid 120 mg 07/28/18 07:00 07/28/18 06:08 [place] [facility] PO 120 mg QDAC TERESA Administration Venlafaxine HCl 75 mg 07/27/18 21:00 07/27/18 20:47 Effexor Er PO 75 mg QPM TERESA Administration Venlafaxine HCl 150 mg 07/28/18 09:00 07/28/18 09:02 Effexor Er PO 150 mg DAILY TERESA Administration - Lab Result Lab results reviewed: Yes Fish Bone Diagrams: 07/28/18 05:42 07/28/18 05:42 - Diagnostic Imaging Results Diagnostic Imaging Results: Final report reviewed - Additional Planning Condition/Complexity: Guarded My Orders: My Active Orders 07/27/18 16:00 Sodium Chloride 0.9% [Normal Saline 0.9%] 1,000 ml IV 100 mls/hr metroNIDAZOLE 500 MG/100 ML [Flagyl 500 mg/100 ml] 500 mg in 100 ml IV Q8H 07/27/18 17:00 Sodium Chloride Flush 0.9% [Normal Saline Flush 0.9%] 10 ml IVP 0100,0900,1700 07/27/18 18:02 HYDROmorphone INJ CARP [Dilaudid Inj Carp] 2 mg IVP Q2HR PRN 11/19/18 18:13 Nebulizer/MDI Tx. [RC] .QID Albuterol 2.5 mg INH RTQ4H PRN 07/27/18 21:00 Famotidine [Pepcid] 20 mg PO BID Morphine ER 30 mg PO QPM Venlafaxine ER [Effexor ER] 75 mg PO QPM 07/27/18 Dinner Clear Liquid Diet [DIET] 07/28/18 07:00 Thyroid [[facility]] 120 mg PO QDAC 07/28/18 09:00 Enoxaparin [Lovenox] 40 mg SUBQ DAILY Lisinopril [Zestril] 20 mg PO DAILY Polyethylene Glycol 3350 [Miralax] 17 gm PO DAILY Venlafaxine ER [Effexor ER] 150 mg PO DAILY cefTRIAXone [Rocephin] 2 gm Sodium Chloride 0.9% Minibag [Normal Saline 0.9% Minibag] 100 ml IV DAILY hydroCHLOROthiazide [Hydrodiuril] 25 mg PO DAILY 07/29/18 05:00 CBC - COMP BLD CT W/AUTO DIFF [HEME] DAILYLAB COMPREHENSIVE METABOLIC PANEL [CHEM] DAILYLAB MAGNESIUM [CHEM] DAILYLAB PHOSPHORUS [CHEM] DAILYLAB 07/30/18 05:00 CBC - COMP BLD CT W/AUTO DIFF [HEME] DAILYLAB COMPREHENSIVE METABOLIC PANEL [CHEM] DAILYLAB MAGNESIUM [CHEM] DAILYLAB PHOSPHORUS [CHEM] DAILYLAB 07/31/18 05:00 CBC - COMP BLD CT W/AUTO DIFF [HEME] DAILYLAB COMPREHENSIVE METABOLIC PANEL [CHEM] DAILYLAB MAGNESIUM [CHEM] DAILYLAB PHOSPHORUS [CHEM] DAILYLAB 08/01/18 05:00 CBC - COMP BLD CT W/AUTO DIFF [HEME] DAILYLAB COMPREHENSIVE METABOLIC PANEL [CHEM] DAILYLAB MAGNESIUM [CHEM] DAILYLAB PHOSPHORUS [CHEM] DAILYLAB 08/02/18 05:00 COMPREHENSIVE METABOLIC PANEL [CHEM] DAILYLAB Plan Discussed with:: Patient Time Spent: 31-60 minutes Subjective - Subjective Patient Reports: Other (Patient feels slightly better and nausea is improved but she states her left lower quadrant abdominal pain is still bad. She has been able to tolerate a full liquid diet. She denies any fever.) Nursing Reports: No Complaints Objective Vital Signs: Vital Signs - 24 hr 07/27/18 07/28/18 07/28/18 19:57 00:00 08:00 Temperature 36.5 C 36.9 C Heart Rate 85 Heart Rate [ 77 71 Brachial] Respiratory 16 18 16 Rate Blood Pressure 128/77 133/82 H [Left Brachial artery] O2 Saturation 100 97 07/28/18 15:30 Temperature 36.5 C Heart Rate Heart Rate [ 72 Brachial] Respiratory 16 Rate Blood Pressure 129/82 H [Left Brachial artery] O2 Saturation 98 Oxygen O2 Source Room air I&O (Last 24 Hrs): Intake and Output Totals x24h 07/26/18 07/27/18 07/28/18 23:59 23:59 23:59 Intake Total 1540 3521.667 Output Total 200 1 Balance 1340 3520.667 General: Alert, Oriented x3, Cooperative, Mild distress (Abdominal pain.) HEENT: Atraumatic, PERRLA, EOMI, Mucous membr. moist/pink Neck: Supple, No JVD, No thyromegaly, +2 carotid pulse wo bruit, No LAD Lymphatic: no adenopathy Neuro: Alert, Non Focal, CN 2-12 Grossly Intact, Oriented Times 3 Cardiovascular: Regular rate, Normal S1, Normal S2, No murmurs Respiratory: Chest non-tender, No respiratory distress, Breath sounds nml Abdomen: Normal bowel sounds, Soft, No hepatospenomegaly, Other (LLQ tenderness, no rebound or guarding.) Extremities: No clubbing, No cyanosis, No edema, Normal pulses Skin: No rashes, No breakdown - Results Results: Laboratory Results WBC 5.0 x10^3/uL (4.8-10.8) 07/28/18 05:42 RBC 3.98 10^6/uL (4.20-5.40) L 07/28/18 05:42 Hgb 12.5 g/dL (12.0-16.0) 07/28/18 05:42 Hct 37.2 % (37.0-47.0) 07/28/18 05:42 MCV 93.5 fL (81.0-99.0) 07/28/18 05:42 MCH 31.4 pg (27.0-31.0) H 07/28/18 05:42 MCHC 33.6 g/dL (32.0-36.0) 07/28/18 05:42 RDW 13.3 % (12.0-15.0) 07/28/18 05:42 Plt Count 197 10^3/uL (130-450) 07/28/18 05:42 MPV 7.2 fL (7.9-10.8) L 07/28/18 05:42 Neut # (Auto) 3.0 10^3/uL (1.5-6.6) 07/28/18 05:42 Lymph # (Auto) 1.3 10^3/uL (1.5-3.5) L 07/28/18 05:42 Hart # (Auto) 0.4 10^3/uL (0.0-1.0) 07/28/18 05:42 Eos # (Auto) 0.2 10^3/uL (0.0-0.7) 07/28/18 05:42 Baso # (Auto) 0.1 10^3/uL (0.0-0.1) 07/28/18 05:42 Absolute Nucleated RBC 0.00 x10^3/uL 07/28/18 05:42 Nucleated RBC % 0.0 /100WBC 07/28/18 05:42 PT 12.0 secs (9.9-12.6) 07/28/18 05:42 INR 1.1 (0.8-1.2) 07/28/18 05:42 Sodium 135 mmol/L (135-145) 07/28/18 05:42 Potassium 3.5 mmol/L (3.5-5.0) 07/28/18 05:42 Chloride 106 mmol/L (101-111) 07/28/18 05:42 Carbon Dioxide 24 mmol/L (21-32) 07/28/18 05:42 Anion Gap 5.0 (6-13) L 07/28/18 05:42 BUN 11 mg/dL (6-20) 07/28/18 05:42 Creatinine 0.6 mg/dL (0.4-1.0) 07/28/18 05:42 Estimated GFR (MDRD) 103 (>89) 07/28/18 05:42 Glucose 85 mg/dL (70-100) 07/28/18 05:42 Lactic Acid 0.6 mmol/L (0.5-2.2) 07/28/18 05:42 Calcium 8.4 mg/dL (8.5-10.3) L 07/28/18 05:42 Phosphorus 3.1 mg/dL (2.5-4.6) 07/28/18 05:42 Magnesium 2.0 mg/dL (1.7-2.8) 07/28/18 05:42 Total Bilirubin 0.7 mg/dL (0.2-1.0) 07/28/18 05:42 AST 17 IU/L (10-42) 07/28/18 05:42 ALT 19 IU/L (10-60) 07/28/18 05:42 Alkaline Phosphatase 69 IU/L (42-121) 07/28/18 05:42 Total Protein 6.2 g/dL (6.7-8.2) L 07/28/18 05:42 Albumin 3.6 g/dL (3.2-5.5) 07/28/18 05:42 Globulin 2.6 g/dL (2.1-4.2) 07/28/18 05:42 Albumin/Globulin Ratio 1.4 (1.0-2.2) 07/28/18 05:42 Lipase 25 U/L (22-51) 07/27/18 14:05 TSH 3.07 uIU/mL (0.34-5.60) 07/28/18 05:42 Urine Color YELLOW 07/27/18 18:30 Urine Clarity CLEAR (CLEAR) 07/27/18 18:30 Urine pH 6.0 PH (5.0-7.5) 07/27/18 18:30 Ur Specific [place] 1.010 (1.002-1.030) 07/27/18 18:30 Urine Protein NEGATIVE mg/dL (NEGATIVE) 07/27/18 18:30 Urine Glucose (UA) NEGATIVE mg/dL (NEGATIVE) 07/27/18 18:30 Urine Ketones NEGATIVE mg/dL (NEGATIVE) 07/27/18 18:30 Urine Occult Blood NEGATIVE (NEGATIVE) 07/27/18 18:30 Urine Nitrite NEGATIVE (NEGATIVE) 07/27/18 18:30 Urine Bilirubin NEGATIVE (NEGATIVE) 07/27/18 18:30 Urine Urobilinogen 0.2 (NORMAL) E.U./dL (NORMAL) 07/27/18 18:30 Ur Leukocyte Esterase NEGATIVE (NEGATIVE) 07/27/18 18:30 Ur Microscopic Review NOT INDICATED 07/27/18 18:30 Urine Culture Comments NOT INDICATED 07/27/18 18:30 - Procedures Procedures: Procedures EXCISION OF SIGMOID COLON, ENDO, DIAGN (04/23/18) INSERTION OF INFUSION DEV INTO SUP VENA CAVA, PERC APPROACH (03/01/18) INTRODUCTION OF NUTRITIONAL INTO CENTRAL VEIN, PERC APPROACH (03/01/18) ABX Reporting Has patient been on IV antibiotics over the past 48 hours?: No Current Medications - Current Medications Current Medications: Active Medications Generic Name Dose Route Start Last Admin Trade Name Freq PRN Reason Stop Dose Admin Acetaminophen 650 mg 07/27/18 15:27 Tylenol PO Q4HR PRN Pain 1 to 4 Albuterol 2.5 mg 07/27/18 18:13 INH RTQ4H PRN Wheezing Cyclobenzaprine HCl 10 mg 07/27/18 15:26 07/27/18 20:43 Flexeril PO 10 mg QPM PRN Administration Spasms Enoxaparin Sodium 40 mg 07/28/18 09:00 07/28/18 09:03 Lovenox SUBQ 40 mg DAILY TERESA Administration Famotidine 20 mg 07/27/18 21:00 07/28/18 09:02 Pepcid PO 20 mg BID TERESA Administration Hydrochlorothiazide 25 mg 07/28/18 09:00 07/28/18 09:02 Hydrodiuril PO 25 mg DAILY TERESA Administration Hydromorphone HCl 2 mg 07/27/18 18:02 07/28/18 14:54 Dilaudid Inj Carp IVP 2 mg Q2HR PRN Administration Pain 8 to 10 Ceftriaxone Sodium 2 gm/ 100 mls @ 200 mls/hr 07/28/18 09:00 07/28/18 11:36 Sodium Chloride IV Infused DAILY TERESA Infusion Metronidazole 500 mg in 100 mls @ 100 mls/hr 07/27/18 16:00 07/28/18 15:57 Flagyl 500 Mg/100 Ml IV 100 mls/hr Q8H TERESA Administration Sodium Chloride 1,000 mls @ 100 mls/hr 07/27/18 16:00 07/28/18 15:57 Normal Saline 0.9% IV 100 mls/hr .Q10H TERESA Administration Lisinopril 20 mg 07/28/18 09:00 07/28/18 09:02 Zestril PO 20 mg DAILY TERESA Administration Morphine Sulfate 30 mg 07/27/18 21:00 07/27/18 20:47 PO 30 mg QPM TERESA Administration Ondansetron HCl 4 mg 07/27/18 15:27 07/28/18 07:49 Zofran Inj IVP 4 mg Q6HR PRN Administration Nausea / Vomiting Oxycodone HCl 10 mg 07/27/18 15:27 Roxicodone PO Q4HR PRN Pain 5 to 7 Oxycodone HCl 15 mg 07/27/18 15:27 07/28/18 13:02 Roxicodone PO 15 mg Q4HR PRN Administration Pain 8 to 10 Polyethylene Glycol 17 gm 07/28/18 09:00 07/28/18 07:12 Miralax PO Not Given DAILY TERESA Prochlorperazine Edisylate 10 mg 07/27/18 15:27 07/28/18 09:17 Compazine Inj IVP 10 mg Q6HR PRN Administration Nausea / Vomiting Promethazine HCl 25 mg 07/27/18 15:27 Phenergan Inj IM Q6HR PRN Nausea / Vomiting Sodium Chloride 10 ml 07/27/18 15:27 07/28/18 14:54 Normal Saline Flush 0.9% IVP 10 ml PRN PRN Administration NEEDED PER PROVIDER ORDERS Sodium Chloride 10 ml 07/27/18 17:00 07/28/18 15:57 Normal Saline Flush 0.9% IVP Not Given 0100,0900,1700 TERESA Thyroid 120 mg 07/28/18 07:00 07/28/18 06:08 [facility] [place] [facility] PO 120 mg QDAC TERESA Administration Trazodone HCl 200 mg 07/27/18 15:26 Desyrel PO HS PRN Insomnia Venlafaxine HCl 75 mg 07/27/18 21:00 07/27/18 20:47 Effexor Er PO 75 mg QPM TERESA Administration Venlafaxine HCl 150 mg 07/28/18 09:00 07/28/18 09:02 Effexor Er PO 150 mg DAILY TERESA Administration Zolpidem Tartrate 5 mg 07/27/18 15:27 Ambien PO QPM PRN Insomnia Venlafaxine HCl [Venlafaxine HCl ER] 75 mg PO QPM 06/17/17 hydroCHLOROthiazide [Hydrochlorothiazide] 25 mg PO DAILY 08/10/17 Albuterol Sulfate [Proair Respiclick] 2 puffs INH Q4H PRN 03/02/18 Thyroid,Pork [[facility] [place] [facility]] 120 mg PO QDAC 03/02/18 Venlafaxine HCl [Venlafaxine HCl ER] 150 mg PO DAILY 03/02/18 traZODone [Desyrel] 200 mg PO HS PRN 03/02/18 Lisinopril 5 mg PO DAILY 07/27/18 Morphine ER [Ms Contin] 30 mg PO UD 07/27/18 Oxycodone HCl 10 mg PO DAILY 07/27/18 metroNIDAZOLE [Flagyl] 500 mg PO BID 07/27/18 oxyCODONE [Roxicodone] 5 - 10 mg PO Q6H PRN 07/27/18
[2018-07-28] MEDS: MORPHINE ER 15 MG TABLET PO SCH (20:49)
[2018-07-29] MEDS: HYDROmorphone 1 MG/ML CARPUJECT IVP PRN ×3 (00:26→06:10)
[2018-07-29] MEDS: metroNIDAZOLE 500 MG/100 ML 500 MG/100 ML BAG IV SCH ×4 (00:26→23:47)
[2018-07-29] MEDS: SODIUM CHLORIDE FLUSH 0.9% 10 ML SYRINGE IVP SCH ×5 (00:27→16:14)
[2018-07-29] MEDS: SODIUM CHLORIDE 0.9% 1,000 ML IV SCH ×3 (03:17→16:52)
[2018-07-29] MEDS: ONDANSETRON 4 MG/2 ML VIAL IVP PRN (04:51)
[2018-07-29 05:06] LABS: BASOPHILS # (AUTO) 0.1 10^3/uL (0.0-0.1); BASOPHILS % (AUTO) 0.9 %; EOSINOPHILS # (AUTO) 0.3 10^3/uL (0.0-0.7); EOSINOPHILS % (AUTO) 4.8 %; HGB - HEMOGLOBIN 12.5 g/dL (12.0-16.0); LYMPHOCYTES # (AUTO) 2.2 10^3/uL (1.5-3.5); LYMPHOCYTES % (AUTO) 34.3 %; MEAN CORPUSCULAR HEMOGLOBIN 31.3 pg (27.0-31.0); MEAN CORPUSCULAR HGB CONC 33.9 g/dL (32.0-36.0); MEAN CORPUSCULAR VOLUME 92.5 fL (81.0-99.0); MEAN PLATELET VOLUME 7.3 fL (7.9-10.8); MONOCYTES # (AUTO) 0.5 10^3/uL (0.0-1.0); MONOCYTES % (AUTO) 7.9 %; NEUTROPHILS # (AUTO) 3.3 10^3/uL (1.5-6.6); NEUTROPHILS % (AUTO) 52.1 %; PLT - PLATELET COUNT 224 10^3/uL (130-450); RED CELL DISTRIBUTION WIDTH 13.2 % (12.0-15.0); WHITE BLOOD COUNT 6.3 x10^3/uL (4.8-10.8)
[2018-07-29 05:25] LABS: ALBUMIN 3.7 g/dL (3.2-5.5); ALBUMIN/GLOBULIN RATIO 1.4 (1.0-2.2); BILIRUBIN,TOTAL 0.6 mg/dL (0.2-1.0); CALCIUM 8.9 mg/dL (8.5-10.3); CREATININE 0.6 mg/dL (0.4-1.0); PHOSPHORUS 2.8 mg/dL (2.5-4.6); TOTAL PROTEIN 6.4 g/dL (6.7-8.2)
[2018-07-29] MEDS: THYROID 60 MG TABLET PO SCH (06:29)
[2018-07-29] MEDS ORDERED: HYDROmorphone 2 MG/ML VIAL IVP PRN (07:25)
[2018-07-29] MEDS: PROCHLORPERAZINE 10 MG/2 ML VIAL IVP PRN ×2 (08:10→16:14)
[2018-07-29] MEDS: ENOXAPARIN 40 MG/0.4 ML SYRINGE SUBQ SCH (08:21)
[2018-07-29] MEDS: hydroCHLOROthiazide 25 MG TABLET PO SCH (08:21)
[2018-07-29] MEDS: FAMOTIDINE 20 MG TABLET PO SCH ×2 (08:21→20:01)
[2018-07-29] MEDS: LISINOPRIL 20 MG TABLET PO SCH (08:22)
[2018-07-29] MEDS: POLYETHYLENE GLYCOL 3350 17 GM PACKET PO SCH (08:23)
[2018-07-29] MEDS: VENLAFAXINE ER 75 MG CAPSULE PO SCH ×2 (08:24→20:01)
[2018-07-29] MEDS: oxyCODONE 5 MG TABLET PO PRN ×5 (08:24→23:46)
[2018-07-29] MEDS: cefTRIAXone 2 GM in SODIUM CHLORIDE 0.9% MINIBAG 100 ML IV SCH (09:39)
[2018-07-29] MEDS: HYDROmorphone 2 MG/ML VIAL IVP PRN ×4 (10:06→21:59)
--- NOTE | 2018-07-29 12:56 | PROVIDER PROGRESS NOTE ---
Assessment/Plan - Problem List (1) Diverticulitis Qualifiers: Diverticulitis site: large intestine Diverticulitis bleeding: without bleeding Diverticulitis complication: without perforation or abscess Qualified Code(s): K57.32 - Diverticulitis of large intestine without perforation or abscess without bleeding Assessment/Plan: Patient presents with left lower quadrant abdominal pain similar to previous episodes of diverticulitis. Patient has associated nausea and vomiting. Patient has had poor oral intake with poor appetite the last 24 hours. Patient had symptoms that started over initially 4 days ago and presented to the ER 2 days ago was given oral antibiotics. Despite receiving oral antibiotics patient had worsening of symptoms. She returns to the emergency department with failed outpatient treatment for diverticulitis. The patient's CT scan confirms sigmoid diverticulitis without any perforation or abscess. Patient is being admitted for treatment with IV antibiotics. WBC improved, no fevers but patient continues to have abdominal pain and tenderness improving but still using dilaudid q2 hours Today will try to transition patient so she uses less IV dilaudid and can go home tomorrow Plan: IV ceftriaxone and Flagyl day 3 IV fluids Full liquid diet Electrolyte replacement IV Antiemetics for control of nausea PO oxycodone and IV dilaudid for pain control Patient will need to follow-up with surgery as an outpatient to consider an elective colectomy given the recurrent diverticulitis. Patient likely needs 1 more day of IV abx. (2) Hypertension Conclusion/Plan: Resumed home meds Patients BP well controlled today Qualifiers: Hypertension type: essential hypertension (3) Chronic back pain Conclusion/Plan: Patient has chronic back pain and takes MS Contin 30 mg nightly along with oxycodone 15 mg as needed throughout the day. Patient states that these medications help to control her back pain. Controlled Qualifiers: Back pain location: low back pain Back pain laterality: bilateral (4) Hypothyroidism Conclusion/Plan: The patient has a history of hypothyroidism and uses [place] Thyroid at home. We will continue her home dose of thyroid medication while she is hospitalized. TSH normal 3.07 Qualifiers: Hypothyroidism type: unspecified Qualified Code(s): E03.9 - Hypothyroidism, unspecified (5) Depression Conclusion/Plan: The patient has a history of depression and uses Effexor at home. We will continue the patient's home dose of Effexor while she is hospitalized. 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 She states that she takes an inhaler when needed. Currently she is stable. The patient will be placed on albuterol as needed while she is hospitalized. Qualifiers: Asthma severity: mild Asthma persistence: intermittent Asthma complication type: unspecified Qualified Code(s): J45.20 - Mild intermittent asthma, uncomplicated - Current Meds Current Meds: Current Medications Generic Name Dose Route Start Last Admin Trade Name Freq PRN Reason Stop Dose Admin Acetaminophen 650 mg 07/27/18 15:27 07/29/18 01:44 Tylenol PO 650 mg Q4HR PRN Administration Pain 1 to 4 Cyclobenzaprine HCl 10 mg 07/27/18 15:26 07/27/18 20:43 Flexeril PO 10 mg QPM PRN Administration Spasms Enoxaparin Sodium 40 mg 07/28/18 09:00 07/29/18 08:21 Lovenox SUBQ 40 mg DAILY TERESA Administration Famotidine 20 mg 07/27/18 21:00 07/29/18 08:21 Pepcid PO 20 mg BID TERESA Administration Hydrochlorothiazide 25 mg 07/28/18 09:00 07/29/18 08:21 Hydrodiuril PO 25 mg DAILY TERESA Administration Hydromorphone HCl 2 mg 07/29/18 08:06 07/29/18 10:06 Dilaudid (Vial) IVP 2 mg Q4H PRN Administration Pain 8 to 10 Ceftriaxone Sodium 2 gm/ 100 mls @ 200 mls/hr 07/28/18 09:00 07/29/18 10:10 Sodium Chloride IV Infused DAILY TERESA Infusion Metronidazole 500 mg in 100 mls @ 100 mls/hr 07/27/18 16:00 07/29/18 09:20 Flagyl 500 Mg/100 Ml IV Infused Q8H TERESA Infusion Sodium Chloride 1,000 mls @ 100 mls/hr 07/27/18 16:00 07/29/18 09:50 Normal Saline 0.9% IV 100 mls/hr .Q10H TERESA Infusion Lisinopril 20 mg 07/28/18 09:00 07/29/18 08:22 Zestril PO 20 mg DAILY TERESA Administration Morphine Sulfate 30 mg 07/27/18 21:00 07/28/18 20:49 PO 30 mg QPM TERESA Administration Ondansetron HCl 4 mg 07/27/18 15:27 07/29/18 04:51 Zofran Inj IVP 4 mg Q6HR PRN Administration Nausea / Vomiting Oxycodone HCl 15 mg 07/27/18 15:27 07/29/18 08:24 Roxicodone PO 15 mg Q4HR PRN Administration Pain 8 to 10 Polyethylene Glycol 17 gm 07/28/18 09:00 07/29/18 08:23 Miralax PO Not Given DAILY TERESA Prochlorperazine Edisylate 10 mg 07/27/18 15:27 07/29/18 08:10 Compazine Inj IVP 10 mg Q6HR PRN Administration Nausea / Vomiting Sodium Chloride 10 ml 07/27/18 15:27 07/28/18 19:55 Normal Saline Flush 0.9% IVP 10 ml PRN PRN Administration NEEDED PER PROVIDER ORDERS Sodium Chloride 10 ml 07/27/18 17:00 07/29/18 06:11 Normal Saline Flush 0.9% IVP 10 ml 0100,0900,1700 TERESA Administration Thyroid 120 mg 07/28/18 07:00 07/29/18 06:29 [place] Thyroid PO 120 mg QDAC TERESA Administration Venlafaxine HCl 75 mg 07/27/18 21:00 07/28/18 20:49 Effexor Er PO 75 mg QPM TERESA Administration Venlafaxine HCl 150 mg 07/28/18 09:00 07/29/18 08:24 Effexor Er PO 150 mg DAILY TERESA Administration - Lab Result Lab results reviewed: Yes Fish Bone Diagrams: 07/29/18 04:55 07/29/18 04:55 - Diagnostic Imaging Results Diagnostic Imaging Results: Final report reviewed - Additional Planning Condition/Complexity: Improved My Orders: My Active Orders 07/29/18 08:06 HYDROmorphone (VIAL) [Dilaudid (Vial)] 2 mg IVP Q4H PRN 07/30/18 05:00 CBC - COMP BLD CT W/AUTO DIFF [HEME] DAILYLAB COMPREHENSIVE METABOLIC PANEL [CHEM] DAILYLAB MAGNESIUM [CHEM] DAILYLAB PHOSPHORUS [CHEM] DAILYLAB 07/31/18 05:00 CBC - COMP BLD CT W/AUTO DIFF [HEME] DAILYLAB COMPREHENSIVE METABOLIC PANEL [CHEM] DAILYLAB MAGNESIUM [CHEM] DAILYLAB PHOSPHORUS [CHEM] DAILYLAB 08/01/18 05:00 CBC - COMP BLD CT W/AUTO DIFF [HEME] DAILYLAB COMPREHENSIVE METABOLIC PANEL [CHEM] DAILYLAB MAGNESIUM [CHEM] DAILYLAB PHOSPHORUS [CHEM] DAILYLAB 08/02/18 05:00 COMPREHENSIVE METABOLIC PANEL [CHEM] DAILYLAB Plan Discussed with:: Patient Time Spent: 31-60 minutes Subjective - Subjective Patient Reports: Pain (Abdominal pain improving only slightly still requring IV dilaudid throughout the night.), Other (Denies, fevers, chills or nausea) Nursing Reports: No Complaints Objective Vital Signs: Vital Signs - 24 hr 07/28/18 07/28/18 07/29/18 15:30 21:00 00:00 Temperature 36.5 C 36.6 C Heart Rate 87 Heart Rate [ 72 80 Brachial] Respiratory 16 16 18 Rate Blood Pressure 129/82 H 140/79 H [Left Brachial artery] O2 Saturation 98 96 07/29/18 08:39 Temperature 36.7 C Heart Rate Heart Rate [ 80 Brachial] Respiratory 18 Rate Blood Pressure 141/87 H [Left Brachial artery] O2 Saturation 98 Oxygen O2 Source Room air I&O (Last 24 Hrs): Intake and Output Totals x24h 07/27/18 07/28/18 07/29/18 23:59 23:59 23:59 Intake Total 1540 4661.667 2040 Output Total 200 1 860 Balance 1340 4660.667 1180 General: Alert, Oriented x3, Cooperative, Mild distress (Abdominal pain) HEENT: Atraumatic, PERRLA, EOMI, Mucous membr. moist/pink Neck: Supple, No JVD, No thyromegaly, +2 carotid pulse wo bruit, No LAD Lymphatic: no adenopathy Neuro: Alert, Non Focal, CN 2-12 Grossly Intact, Oriented Times 3 Cardiovascular: Regular rate, Normal S1, Normal S2, No murmurs Respiratory: Chest non-tender, No respiratory distress, Breath sounds nml Abdomen: Normal bowel sounds, Soft, No hepatospenomegaly, Other (Diffusely tender but worse in the LLQ) Extremities: No clubbing, No cyanosis, No edema, Normal pulses Skin: No rashes, No breakdown - Results Results: Laboratory Results WBC 6.3 x10^3/uL (4.8-10.8) 07/29/18 04:55 RBC 4.00 10^6/uL (4.20-5.40) L 07/29/18 04:55 Hgb 12.5 g/dL (12.0-16.0) 07/29/18 04:55 Hct 37.0 % (37.0-47.0) 07/29/18 04:55 MCV 92.5 fL (81.0-99.0) 07/29/18 04:55 MCH 31.3 pg (27.0-31.0) H 07/29/18 04:55 MCHC 33.9 g/dL (32.0-36.0) 07/29/18 04:55 RDW 13.2 % (12.0-15.0) 07/29/18 04:55 Plt Count 224 10^3/uL (130-450) 07/29/18 04:55 MPV 7.3 fL (7.9-10.8) L 07/29/18 04:55 Neut # (Auto) 3.3 10^3/uL (1.5-6.6) 07/29/18 04:55 Lymph # (Auto) 2.2 10^3/uL (1.5-3.5) 07/29/18 04:55 [place] # (Auto) 0.5 10^3/uL (0.0-1.0) 07/29/18 04:55 Eos # (Auto) 0.3 10^3/uL (0.0-0.7) 07/29/18 04:55 Baso # (Auto) 0.1 10^3/uL (0.0-0.1) 07/29/18 04:55 Absolute Nucleated RBC 0.00 x10^3/uL 07/29/18 04:55 Nucleated RBC % 0.1 /100WBC 07/29/18 04:55 PT 12.0 secs (9.9-12.6) 07/28/18 05:42 INR 1.1 (0.8-1.2) 07/28/18 05:42 Sodium 140 mmol/L (135-145) 07/29/18 04:55 Potassium 3.7 mmol/L (3.5-5.0) 07/29/18 04:55 Chloride 106 mmol/L (101-111) 07/29/18 04:55 Carbon Dioxide 25 mmol/L (21-32) 07/29/18 04:55 Anion Gap 9.0 (6-13) 07/29/18 04:55 BUN 8 mg/dL (6-20) 07/29/18 04:55 Creatinine 0.6 mg/dL (0.4-1.0) 07/29/18 04:55 Estimated GFR (MDRD) 103 (>89) 07/29/18 04:55 Glucose 79 mg/dL (70-100) 07/29/18 04:55 Lactic Acid 0.6 mmol/L (0.5-2.2) 07/28/18 05:42 Calcium 8.9 mg/dL (8.5-10.3) 07/29/18 04:55 Phosphorus 2.8 mg/dL (2.5-4.6) 07/29/18 04:55 Magnesium 2.0 mg/dL (1.7-2.8) 07/29/18 04:55 Total Bilirubin 0.6 mg/dL (0.2-1.0) 07/29/18 04:55 AST 21 IU/L (10-42) 07/29/18 04:55 ALT 23 IU/L (10-60) 07/29/18 04:55 Alkaline Phosphatase 67 IU/L (42-121) 07/29/18 04:55 Total Protein 6.4 g/dL (6.7-8.2) L 07/29/18 04:55 Albumin 3.7 g/dL (3.2-5.5) 07/29/18 04:55 Globulin 2.7 g/dL (2.1-4.2) 07/29/18 04:55 Albumin/Globulin Ratio 1.4 (1.0-2.2) 07/29/18 04:55 Lipase 25 U/L (22-51) 07/27/18 14:05 TSH 3.07 uIU/mL (0.34-5.60) 07/28/18 05:42 Urine Color YELLOW 07/27/18 18:30 Urine Clarity CLEAR (CLEAR) 07/27/18 18:30 Urine pH 6.0 PH (5.0-7.5) 07/27/18 18:30 Ur Specific [place] 1.010 (1.002-1.030) 07/27/18 18:30 Urine Protein NEGATIVE mg/dL (NEGATIVE) 07/27/18 18:30 Urine Glucose (UA) NEGATIVE mg/dL (NEGATIVE) 07/27/18 18:30 Urine Ketones NEGATIVE mg/dL (NEGATIVE) 07/27/18 18:30 Urine Occult Blood NEGATIVE (NEGATIVE) 07/27/18 18:30 Urine Nitrite NEGATIVE (NEGATIVE) 07/27/18 18:30 Urine Bilirubin NEGATIVE (NEGATIVE) 07/27/18 18:30 Urine Urobilinogen 0.2 (NORMAL) E.U./dL (NORMAL) 07/27/18 18:30 Ur Leukocyte Esterase NEGATIVE (NEGATIVE) 07/27/18 18:30 Ur Microscopic Review NOT INDICATED 07/27/18 18:30 Urine Culture Comments NOT INDICATED 07/27/18 18:30 - Procedures Procedures: Procedures EXCISION OF SIGMOID COLON, ENDO, DIAGN (04/23/18) INSERTION OF INFUSION DEV INTO SUP VENA CAVA, PERC APPROACH (03/01/18) INTRODUCTION OF NUTRITIONAL INTO CENTRAL VEIN, PERC APPROACH (03/01/18) ABX Reporting Has patient been on IV antibiotics over the past 48 hours?: Yes Current Medications - Current Medications Current Medications: Active Medications Generic Name Dose Route Start Last Admin Trade Name Freq PRN Reason Stop Dose Admin Acetaminophen 650 mg 07/27/18 15:27 07/29/18 01:44 Tylenol PO 650 mg Q4HR PRN Administration Pain 1 to 4 Albuterol 2.5 mg 07/27/18 18:13 INH RTQ4H PRN Wheezing Cyclobenzaprine HCl 10 mg 07/27/18 15:26 07/27/18 20:43 Flexeril PO 10 mg QPM PRN Administration Spasms Enoxaparin Sodium 40 mg 07/28/18 09:00 07/29/18 08:21 Lovenox SUBQ 40 mg DAILY TERESA Administration Famotidine 20 mg 07/27/18 21:00 07/29/18 08:21 Pepcid PO 20 mg BID TERESA Administration Hydrochlorothiazide 25 mg 07/28/18 09:00 07/29/18 08:21 Hydrodiuril PO 25 mg DAILY TERESA Administration Hydromorphone HCl 2 mg 07/29/18 08:06 07/29/18 10:06 Dilaudid (Vial) IVP 2 mg Q4H PRN Administration Pain 8 to 10 Ceftriaxone Sodium 2 gm/ 100 mls @ 200 mls/hr 07/28/18 09:00 07/29/18 10:10 Sodium Chloride IV Infused DAILY TERESA Infusion Metronidazole 500 mg in 100 mls @ 100 mls/hr 07/27/18 16:00 07/29/18 09:20 Flagyl 500 Mg/100 Ml IV Infused Q8H TERESA Infusion Sodium Chloride 1,000 mls @ 100 mls/hr 07/27/18 16:00 07/29/18 09:50 Normal Saline 0.9% IV 100 mls/hr .Q10H TERESA Infusion Lisinopril 20 mg 07/28/18 09:00 07/29/18 08:22 Zestril PO 20 mg DAILY TERESA Administration Morphine Sulfate 30 mg 07/27/18 21:00 07/28/18 20:49 PO 30 mg QPM TERESA Administration Ondansetron HCl 4 mg 07/27/18 15:27 07/29/18 04:51 Zofran Inj IVP 4 mg Q6HR PRN Administration Nausea / Vomiting Oxycodone HCl 10 mg 07/27/18 15:27 Roxicodone PO Q4HR PRN Pain 5 to 7 Oxycodone HCl 15 mg 07/27/18 15:27 07/29/18 12:22 Roxicodone PO 15 mg Q4HR PRN Administration Pain 8 to 10 Polyethylene Glycol 17 gm 07/28/18 09:00 07/29/18 08:23 Miralax PO Not Given DAILY TERESA Prochlorperazine Edisylate 10 mg 07/27/18 15:27 07/29/18 08:10 Compazine Inj IVP 10 mg Q6HR PRN Administration Nausea / Vomiting Promethazine HCl 25 mg 07/27/18 15:27 Phenergan Inj IM Q6HR PRN Nausea / Vomiting Sodium Chloride 10 ml 07/27/18 15:27 07/28/18 19:55 Normal Saline Flush 0.9% IVP 10 ml PRN PRN Administration NEEDED PER PROVIDER ORDERS Sodium Chloride 10 ml 07/27/18 17:00 07/29/18 06:11 Normal Saline Flush 0.9% IVP 10 ml 0100,0900,1700 TERESA Administration Thyroid 120 mg 07/28/18 07:00 07/29/18 06:29 [place] Thyroid PO 120 mg QDAC TERESA Administration Trazodone HCl 200 mg 07/27/18 15:26 Desyrel PO HS PRN Insomnia Venlafaxine HCl 75 mg 07/27/18 21:00 07/28/18 20:49 Effexor Er PO 75 mg QPM TERESA Administration Venlafaxine HCl 150 mg 07/28/18 09:00 07/29/18 08:24 Effexor Er PO 150 mg DAILY TERESA Administration Zolpidem Tartrate 5 mg 07/27/18 15:27 Ambien PO QPM PRN Insomnia Venlafaxine HCl [Venlafaxine HCl ER] 75 mg PO QPM 06/17/17 hydroCHLOROthiazide [Hydrochlorothiazide] 25 mg PO DAILY 08/10/17 Albuterol Sulfate [Proair Respiclick] 2 puffs INH Q4H PRN 03/02/18 Thyroid,Pork [[place] Thyroid] 120 mg PO QDAC 03/02/18 Venlafaxine HCl [Venlafaxine HCl ER] 150 mg PO DAILY 03/02/18 traZODone [Desyrel] 200 mg PO HS PRN 03/02/18 Lisinopril 5 mg PO DAILY 07/27/18 Morphine ER [Ms Contin] 30 mg PO UD 07/27/18 Oxycodone HCl 10 mg PO DAILY 07/27/18 metroNIDAZOLE [Flagyl] 500 mg PO BID 07/27/18 oxyCODONE [Roxicodone] 5 - 10 mg PO Q6H PRN 07/27/18
[2018-07-29] MEDS: MORPHINE ER 15 MG TABLET PO SCH (20:00)
[2018-07-30] MEDS: PROCHLORPERAZINE 10 MG/2 ML VIAL IVP PRN (01:11)
[2018-07-30] MEDS: HYDROmorphone 2 MG/ML VIAL IVP PRN ×3 (02:10→09:43)
[2018-07-30] MEDS: SODIUM CHLORIDE 0.9% 1,000 ML IV SCH (02:11)
[2018-07-30] MEDS: SODIUM CHLORIDE FLUSH 0.9% 10 ML SYRINGE IVP PRN (02:15)
[2018-07-30] MEDS: oxyCODONE 5 MG TABLET PO PRN (03:50)
[2018-07-30 04:38] LABS: BASOPHILS # (AUTO) 0.1 10^3/uL (0.0-0.1); BASOPHILS % (AUTO) 0.7 %; EOSINOPHILS # (AUTO) 0.3 10^3/uL (0.0-0.7); EOSINOPHILS % (AUTO) 3.9 %; HGB - HEMOGLOBIN 12.1 g/dL (12.0-16.0); LYMPHOCYTES # (AUTO) 1.9 10^3/uL (1.5-3.5); LYMPHOCYTES % (AUTO) 24.6 %; MEAN CORPUSCULAR HEMOGLOBIN 31.4 pg (27.0-31.0); MEAN CORPUSCULAR HGB CONC 33.6 g/dL (32.0-36.0); MEAN CORPUSCULAR VOLUME 93.5 fL (81.0-99.0); MEAN PLATELET VOLUME 7.4 fL (7.9-10.8); MONOCYTES # (AUTO) 0.7 10^3/uL (0.0-1.0); MONOCYTES % (AUTO) 8.8 %; NEUTROPHILS # (AUTO) 4.8 10^3/uL (1.5-6.6); PLT - PLATELET COUNT 223 10^3/uL (130-450); RED BLOOD COUNT 3.87 10^6/uL (4.20-5.40); RED CELL DISTRIBUTION WIDTH 13.1 % (12.0-15.0); WHITE BLOOD COUNT 7.8 x10^3/uL (4.8-10.8)
[2018-07-30 04:51] LABS: ALBUMIN 3.2 g/dL (3.2-5.5); ALBUMIN/GLOBULIN RATIO 1.1 (1.0-2.2); BILIRUBIN,TOTAL 0.7 mg/dL (0.2-1.0); CALCIUM 8.5 mg/dL (8.5-10.3); CREATININE 0.6 mg/dL (0.4-1.0); MAGNESIUM 1.8 mg/dL (1.7-2.8); PHOSPHORUS 2.7 mg/dL (2.5-4.6); TOTAL PROTEIN 6.2 g/dL (6.7-8.2)
[2018-07-30] MEDS: THYROID 60 MG TABLET PO SCH (06:04)
[2018-07-30 08:16] VITALS: BP 120/93
[2018-07-30] MEDS: LISINOPRIL 20 MG TABLET PO SCH (08:16)
[2018-07-30] MEDS: FAMOTIDINE 20 MG TABLET PO SCH (08:16)
[2018-07-30] MEDS: VENLAFAXINE ER 75 MG CAPSULE PO SCH (08:16)
[2018-07-30] MEDS: ENOXAPARIN 40 MG/0.4 ML SYRINGE SUBQ SCH (08:17)
[2018-07-30] MEDS: metroNIDAZOLE 500 MG/100 ML 500 MG/100 ML BAG IV SCH (08:17)
[2018-07-30] MEDS: POLYETHYLENE GLYCOL 3350 17 GM PACKET PO SCH (08:17)
[2018-07-30] MEDS: hydroCHLOROthiazide 25 MG TABLET PO SCH (08:31)
--- NOTE | 2018-07-30 09:23 | Discharge Plan ---
Discharge Plan Disposition: Home, Self Care Condition: Stable Prescriptions: oxyCODONE [Roxicodone] 10 mg PO Q4HR PRN #42 tablet PRN Reason: Pain 5 to 7 Ciprofloxacin HCl [Cipro] 500 mg PO BID #14 tablet metroNIDAZOLE [Flagyl] 500 mg PO QID #28 tablet Diet: Soft (Full liquid diet for 7 days then advance as tolerated) Activity Restrictions: No Restrictions Shower Restrictions: No Driving Restrictions: No Weight Bearing: Full Weight Additional Instructions or Follow Up instructions: You presented to the emergency department with abdominal pain, nausea and vomiting. You were found to have diverticulitis and admitted to the hospital for IV antibiotics and pain control. You required 3 days of hospitalization and were given IV antibiotics with which you did have some improvement in her symptoms. Urinalysis stable enough to return home with continued oral antibiotics for 7 days. We have also given you a prescription for oxycodone which should last you through the next week until you can see her primary care physician to refill your chronic pain medication. You should eat a full liquid diet for the next 7 days until you have completed your antibiotics. Then you can slowly advance her diet as you are able to tolerate. Make sure to get lots of rest and drink plenty of fluid. You should also follow-up with general surgery Dr Eris Newman if you want to consider getting a colectomy given your recurrent episodes of diverticulitis. No Smoking: If you smoke, Please STOP! Call for help. Follow-up with: Kathleen Asher MD [Primary Care Provider] - Eris Newman MD [Provider Admit Priv/Credential] -
[2018-07-30] MEDS: cefTRIAXone 2 GM in SODIUM CHLORIDE 0.9% MINIBAG 100 ML IV SCH (09:42)
--- NOTE | 2018-07-30 12:27 | DISCHARGE SUMMARY ---
Discharge Summary Admit Date: 07/27/18 Discharge Date: 07/30/18 Discharging Provider: Rolo Ray MD Primary Care Provider: Kathleen Asher MD Code Status: Attempt Resuscitation Condition at Discharge: Stable Discharge Disposition: 01 Home, Self Care - DIAGNOSES Admission Diagnoses: 1. Diverticulitis 2. Hypertension 3. Chronic back pain 4. Hypothyroidism 5. Depression 6. Asthma Discharge Diagnoses with Status of Each Condition: 1. Diverticulitis: Improving 2. Hypertension: Stable 3. Chronic back pain: Stable 4. Hypothyroidism: Stable 5. Depression: Stable 6. Asthma: Stable - HPI History of Present Illness: Patient is a 58-year-old female with a past medical history significant for breast cancer status post radical bilateral mastectomy, chemotherapy and radiation therapy, history of A. tach back surgeries with most recent being fusion of the spine in 2012 with chronic back pain on opioids, hypertension, depression, asthma, hypothyroidism and history of recurrent episodes of diverticulitis who presented to the emergency department with a chief complaint of abdominal pain. The patient states that her symptoms started about 4 days ago. She states that that time she began having left lower quadrant abdominal pain along with nausea. The patient states that the pain is up to a 10 out of 10 prior to presentation to the ER. She states that it radiates up into the left upper quadrant and across into the epigastric area. She states that it has not gotten better with her oral pain medication. She states that she came to the emergency department on 07/25/2018 and at that time was examined and thought to have another episode of diverticulitis. She states that she was placed on oral antibiotics and given medications for pain control. She states after returning home she was not improving. She states that yesterday all day she had persistent nausea and vomiting. She states that she also had several episodes of diarrhea. She states her abdominal pain became progressively worse throughout the day. She states that she tried to take her pain medication to keep things controlled. She states that when she woke up this morning the pain was out of control and continued to worsen with continued nausea so she finally decided to come back to the emergency department. The patient denies any fevers or chills. She denies any urinary urgency frequency or dysuria. She denies any night sweats. The patient states that she has had no appetite the last 2 days has been unable to keep anything down for at least the last day. Patient denies any headaches, blurred vision, runny nose, sore throat, nasal congestion, difficulty swallowing, chest pain, orthopnea, PND, increased lower extremity swelling, shortness of air, joint pain, joint swelling, muscle aches, neck stiffness, recent unintentional weight loss, polyuria, polydipsia, skin changes, dizziness, syncope, palpitations, hair loss or any focal neurologic deficits. On presentation to the emergency department the patient was afebrile, tachycardic with heart rate up to 100 and hypertensive with blood pressure of 149/109. She was not in any respiratory distress but did appear to be in sign ificant distress due to her abdominal pain. The patient underwent routine lab work which did reveal a mild leukocytosis with a WBC of 11.1 which was elevated from her previous WBC 2 days earlier of 7.4. The patient's electrolytes were within normal limits. The patient underwent a CT of her abdomen and pelvis which revealed focal fat stranding and wall thickening of a segment of the sigmoid colon in the left hemipelvis surrounding a cluster of diverticuli consistent with diverticulitis without abscess formation. Given the patient's persistent symptoms despite outpatient treatment for diverticulitis the patient was admitted to the hospital for treatment of diverticulitis with IV antibiotic s. - HOSPITAL COURSE Hospital Course: Patient was hospitalized for sigmoid colon diverticulitis which failed outpatient treatment. The patient had severe pain in the left lower quadrant and nausea and vomiting. CT scan showed that she had sigmoid diverticulitis with multiple other diverticula. Patient has had recurrent diverticulitis over the years. The patient was hospitalized and treated with IV ceftriaxone and Flagyl. The patient had improvement in her symptoms over 3 days of hospitalization. Initially the patient had severe pain which slowly improved and we were able to wean down her use of IV narcotics. The patient however still had significant pain at discharge and was discharged home with oral oxycodone. The patient also was given oral ciprofloxacin and Flagyl which she will continue for 7 days to complete treatment for diverticulitis. She was also instructed to continue a full liquid diet for the remainder of her treatment and then slowly advance her diet as tolerated. The patient was not having any nausea at discharge therefore no antiemetics were prescribed. The patient was instructed to drink plenty of fluid and remain well-hydrated. The patient was also instructed to follow-up with general surgery for possible elective colectomy given her recurrent diverticulitis. - ALLERGIES Allergies/Adverse Reactions: Allergies Allergy/AdvReac Type Severity Reaction Status Date / Time adhesive tape Allergy Rash Verified 07/25/18 05:27 latex Allergy Rash Verified 07/25/18 05:27 hydrocodone bitartrate * AdvReac Itching Verified 07/25/18 05:27 [From Vicodin] - MEDICATIONS Home Medications: Ambulatory Orders Medication Instructions Recorded Confirmed Venlafaxine HCl [Venlafaxine HCl 75 mg PO QPM 06/17/17 07/28/18 ER] hydroCHLOROthiazide 25 mg PO DAILY 08/10/17 07/28/18 [Hydrochlorothiazide] Albuterol Sulfate [Proair 2 puffs INH Q4H PRN 03/02/18 07/28/18 Respiclick] Thyroid,Pork [[place] Thyroid] 120 mg PO QDAC 03/02/18 07/28/18 Venlafaxine HCl [Venlafaxine HCl 150 mg PO DAILY 03/02/18 07/28/18 ER] traZODone [Desyrel] 200 mg PO HS PRN 03/02/18 07/28/18 Ondansetron Odt [Zofran Odt] 4 mg TL Q6H PRN #10 tablet 07/25/18 07/27/18 Lisinopril 5 mg PO DAILY 07/27/18 07/27/18 Morphine ER 30 mg PO UD 07/27/18 07/27/18 Oxycodone HCl 10 mg PO DAILY 07/27/18 07/27/18 oxyCODONE [Roxicodone] 5 - 10 mg PO Q6H PRN 07/27/18 07/27/18 Ciprofloxacin HCl [Cipro] 500 mg PO BID #14 tablet 07/30/18 metroNIDAZOLE [Flagyl] 500 mg PO QID #28 tablet 07/30/18 oxyCODONE [Roxicodone] 10 mg PO Q4HR PRN #42 tablet 07/30/18 - PHYSICAL EXAM AT DISCHARGE General Appearance: positive: No acute distress, Alert Eyes Bilateral: positive: Normal inspection, PERRL, EOMI, No lid inflammation, Conjunctivae nml, No scleral icterus ENT: positive: ENT inspection nml, Pharynx nml, No signs of dehydration. negative: Purulent nasal drainage, Pharyngeal erythema, Oral lesions Neck: positive: Nml inspection, Thyroid nml, No JVD, Trachea midline. negative: Thyromegaly, Lymphadenopathy (R), Lymphadenopathy (L), Stiff neck, Carotid bruit, Tracheal deviation Respiratory: positive: Chest non-tender, No respiratory distress, Breath sounds nml. negative: Wheezes, Rales, Rhonchi Cardiovascular: positive: Regular rate & rhythm, No murmur, No gallop Peripheral Pulses: positive: 2+ Abdomen: positive: No organomegaly, Nml bowel sounds, No distention, Tenderness (Patient continues to have mild tenderness especially in the left lower quadrant, abdomen is soft without any peritoneal signs.). negative: Guarding, Rebound, Hepatomegaly Back: positive: Nml inspection. negative: CVA tenderness (R), CVA tenderness (L) Skin: positive: Color nml, No rash, Warm. negative: Cyanosis, Diaphoresis, Pallor Extremities: positive: Non-tender, Full ROM, Nml appearance, No pedal edema Neurologic/Psychiatric: positive: Oriented x3, CN's nml (2-12), Motor nml, Sensation nml, Mood/affect nml - LABS Result Diagrams: 07/30/18 04:20 07/30/18 04:20 Other Lab Results: Laboratory Results WBC 7.8 x10^3/uL (4.8-10.8) 07/30/18 04:20 RBC 3.87 10^6/uL (4.20-5.40) L 07/30/18 04:20 Hgb 12.1 g/dL (12.0-16.0) 07/30/18 04:20 Hct 36.2 % (37.0-47.0) L 07/30/18 04:20 MCV 93.5 fL (81.0-99.0) 07/30/18 04:20 MCH 31.4 pg (27.0-31.0) H 07/30/18 04:20 MCHC 33.6 g/dL (32.0-36.0) 07/30/18 04:20 RDW 13.1 % (12.0-15.0) 07/30/18 04:20 Plt Count 223 10^3/uL (130-450) 07/30/18 04:20 MPV 7.4 fL (7.9-10.8) L 07/30/18 04:20 Neut # (Auto) 4.8 10^3/uL (1.5-6.6) 07/30/18 04:20 Lymph # (Auto) 1.9 10^3/uL (1.5-3.5) 07/30/18 04:20 [place] # (Auto) 0.7 10^3/uL (0.0-1.0) 07/30/18 04:20 Eos # (Auto) 0.3 10^3/uL (0.0-0.7) 07/30/18 04:20 Baso # (Auto) 0.1 10^3/uL (0.0-0.1) 07/30/18 04:20 Absolute Nucleated RBC 0.00 x10^3/uL 07/30/18 04:20 Nucleated RBC % 0.0 /100WBC 07/30/18 04:20 PT 12.0 secs (9.9-12.6) 07/28/18 05:42 INR 1.1 (0.8-1.2) 07/28/18 05:42 Sodium 138 mmol/L (135-145) 07/30/18 04:20 Potassium 3.5 mmol/L (3.5-5.0) 07/30/18 04:20 Chloride 105 mmol/L (101-111) 07/30/18 04:20 Carbon Dioxide 25 mmol/L (21-32) 07/30/18 04:20 Anion Gap 8.0 (6-13) 07/30/18 04:20 BUN 6 mg/dL (6-20) 07/30/18 04:20 Creatinine 0.6 mg/dL (0.4-1.0) 07/30/18 04:20 Estimated GFR (MDRD) 103 (>89) 07/30/18 04:20 Glucose 91 mg/dL (70-100) 07/30/18 04:20 Lactic Acid 0.6 mmol/L (0.5-2.2) 07/28/18 05:42 Calcium 8.5 mg/dL (8.5-10.3) 07/30/18 04:20 Phosphorus 2.7 mg/dL (2.5-4.6) 07/30/18 04:20 Magnesium 1.8 mg/dL (1.7-2.8) 07/30/18 04:20 Total Bilirubin 0.7 mg/dL (0.2-1.0) 07/30/18 04:20 AST 19 IU/L (10-42) 07/30/18 04:20 ALT 21 IU/L (10-60) 07/30/18 04:20 Alkaline Phosphatase 64 IU/L (42-121) 07/30/18 04:20 Total Protein 6.2 g/dL (6.7-8.2) L 07/30/18 04:20 Albumin 3.2 g/dL (3.2-5.5) 07/30/18 04:20 Globulin 3.0 g/dL (2.1-4.2) 07/30/18 04:20 Albumin/Globulin Ratio 1.1 (1.0-2.2) 07/30/18 04:20 Lipase 25 U/L (22-51) 07/27/18 14:05 TSH 3.07 uIU/mL (0.34-5.60) 07/28/18 05:42 Urine Color YELLOW 07/27/18 18:30 Urine Clarity CLEAR (CLEAR) 07/27/18 18:30 Urine pH 6.0 PH (5.0-7.5) 07/27/18 18:30 Ur Specific [place] 1.010 (1.002-1.030) 07/27/18 18:30 Urine Protein NEGATIVE mg/dL (NEGATIVE) 07/27/18 18:30 Urine Glucose (UA) NEGATIVE mg/dL (NEGATIVE) 07/27/18 18:30 Urine Ketones NEGATIVE mg/dL (NEGATIVE) 07/27/18 18:30 Urine Occult Blood NEGATIVE (NEGATIVE) 07/27/18 18:30 Urine Nitrite NEGATIVE (NEGATIVE) 07/27/18 18:30 Urine Bilirubin NEGATIVE (NEGATIVE) 07/27/18 18:30 Urine Urobilinogen 0.2 (NORMAL) E.U./dL (NORMAL) 07/27/18 18:30 Ur Leukocyte Esterase NEGATIVE (NEGATIVE) 07/27/18 18:30 Ur Microscopic Review NOT INDICATED 07/27/18 18:30 Urine Culture Comments NOT INDICATED 07/27/18 18:30 - DIAGNOSTIC IMAGING Diagnostic Imaging Results: Final report reviewed Diagnostic Imaging Results Comments: CT abdomen/pelvis Impression: Diverticulitis without abscess formation. - FOLLOW UP Follow Up: Patient was discharged home with oral antibiotics ciprofloxacin and Flagyl to complete treatment for diverticulitis. Patient was instructed to continue antibiotics for 7 more days. She was also instructed to remain on a full liquid diet for the duration of treatment. She can then advance her diet as tolerated. She was also instructed to drink plenty of fluid and remain well-hydrated. The patient was prescribed oxycodone for her pain. The patient will follow up with her primary care physician as needed. She was also instructed to follow-up with general surgery to discuss the possibility of an elective colectomy given her recurrent diverticulitis. - TIME SPENT Time Spent in Discharge (Minutes): 45
== END 2018-07-30 10:25 | disposition home or self-care (01) | DRG 392 ==
LOC: ED 12:47 → MS3 15:28
PROVIDERS: ADMIT Internal Medicine; ATTEND Internal Medicine
DX: K57.32 Diverticulitis of large intestine without perforation or abscess without bleeding (principal); I10 Essential (primary) hypertension; G89.29 Other chronic pain; M54.9 Dorsalgia, unspecified; E03.9 Hypothyroidism, unspecified; F32.9 Major depressive disorder, single episode, unspecified; J45.20 Mild intermittent asthma, uncomplicated; M19.90 Unspecified osteoarthritis, unspecified site; Z85.3 Personal history of malignant neoplasm of breast; Z92.3 Personal history of irradiation; Z92.21 Personal history of antineoplastic chemotherapy; Z79.891 Long term (current) use of opiate analgesic; Z79.51 Long term (current) use of inhaled steroids; Z90.10 Acquired absence of unspecified breast and nipple
CPT/HCPCS: 36415; 74177; 80053; 81001; 81003; 83605; 83690; 83735; 84100; 84443; 85025; 85610; 87086; 96365; 96375; 99283; 99284

== ENCOUNTER 2018-08-04 14:51 | Emergency (ER) | payer OTHER ==
[2018-08-04 15:25] LABS: BASOPHILS # (AUTO) 0.1 10^3/uL (0.0-0.1); EOSINOPHILS # (AUTO) 0.3 10^3/uL (0.0-0.7); EOSINOPHILS % (AUTO) 2.5 %; HGB - HEMOGLOBIN 13.8 g/dL (12.0-16.0); LYMPHOCYTES # (AUTO) 3.2 10^3/uL (1.5-3.5); MEAN CORPUSCULAR HGB CONC 34.5 g/dL (32.0-36.0); MEAN CORPUSCULAR VOLUME 89.9 fL (81.0-99.0); MEAN PLATELET VOLUME 7.4 fL (7.9-10.8); MONOCYTES % (AUTO) 8.9 %; NEUTROPHILS # (AUTO) 6.5 10^3/uL (1.5-6.6); NEUTROPHILS % (AUTO) 58.6 %; PLT - PLATELET COUNT 344 10^3/uL (130-450); RED BLOOD COUNT 4.46 10^6/uL (4.20-5.40); RED CELL DISTRIBUTION WIDTH 13.5 % (12.0-15.0); WHITE BLOOD COUNT 11.1 x10^3/uL (4.8-10.8)
[2018-08-04 15:37] LABS: ALBUMIN 3.8 g/dL (3.2-5.5); ALBUMIN/GLOBULIN RATIO 1.1 (1.0-2.2); BILIRUBIN,TOTAL 0.5 mg/dL (0.2-1.0); CALCIUM 9.3 mg/dL (8.5-10.3); CREATININE 0.9 mg/dL (0.4-1.0); TOTAL PROTEIN 7.2 g/dL (6.7-8.2)
[2018-08-04] MEDS ORDERED: HYDROmorphone 1 MG/ML CARPUJECT IVP STA ×3 (17:00→19:05)
[2018-08-04] MEDS ORDERED: ONDANSETRON 4 MG/2 ML VIAL IVP STA (17:00)
--- NOTE | 2018-08-04 17:07 | ED Physician Documentation ---
PD HPI ABD PAIN - Stated complaint Stated Complaint: VOMITING/LT ABD PX - Chief complaint Chief Complaint: Abd Pain - History obtained from History obtained from: Patient - History of Present Illness Timing - onset: Today (Recent admit for diverticulitis. Increased pain LLQ today with vomiting. Same place as prior pain.) PD PAST MEDICAL HISTORY - Past Medical History Cardiovascular: Hypertension Respiratory: Asthma, Shortness of breath Neuro: Headaches, Motion sickness Endocrine/Autoimmune: HyPOthyroidism GI: Diverticulitis [employer]: Breast cancer (Status post radical bilateral mastectomies, chemotherapy and radiation) : None HEENT: None Psych: Depression, Anxiety, ADD/ADHD Musculoskeletal: Osteoarthritis, Chronic back pain Derm: None - Past Surgical History Past Surgical History: Yes General: Appendectomy Ortho: Spine surgery /[employer]: Mastectomy - Present Medications Home Medications: Ambulatory Orders Medication Instructions Recorded Confirmed Venlafaxine HCl [Venlafaxine HCl 75 mg PO QPM 06/17/17 07/28/18 ER] hydroCHLOROthiazide 25 mg PO DAILY 08/10/17 07/28/18 [Hydrochlorothiazide] Albuterol Sulfate [Proair 2 puffs INH Q4H PRN 03/02/18 07/28/18 Respiclick] Thyroid,Pork [[place] Thyroid] 120 mg PO QDAC 03/02/18 07/28/18 Venlafaxine HCl [Venlafaxine HCl 150 mg PO DAILY 03/02/18 07/28/18 ER] traZODone [Desyrel] 200 mg PO HS PRN 03/02/18 07/28/18 Ondansetron Odt [Zofran Odt] 4 mg TL Q6H PRN #10 tablet 07/25/18 07/27/18 Lisinopril 5 mg PO DAILY 07/27/18 07/27/18 Morphine ER 30 mg PO UD 07/27/18 07/27/18 Oxycodone HCl 10 mg PO DAILY 07/27/18 07/27/18 oxyCODONE [Roxicodone] 5 - 10 mg PO Q6H PRN 07/27/18 07/27/18 Ciprofloxacin HCl [Cipro] 500 mg PO BID #14 tablet 07/30/18 metroNIDAZOLE [Flagyl] 500 mg PO QID #28 tablet 07/30/18 oxyCODONE [Roxicodone] 10 mg PO Q4HR PRN #42 tablet 07/30/18 Oxycodone HCl/Acetaminophen 1 - 2 each PO Q6H PRN #14 tablet 08/04/18 [Percocet 5-325 mg Tablet] Promethazine [Phenergan] 25 mg PO Q6H PRN #10 tab 08/04/18 - Allergies Allergies/Adverse Reactions: Allergies Allergy/AdvReac Type Severity Reaction Status Date / Time adhesive tape Allergy Rash Verified 07/25/18 05:27 latex Allergy Rash Verified 07/25/18 05:27 hydrocodone bitartrate * AdvReac Itching Verified 07/25/18 05:27 [From Vicodin] - Social History Does the pt smoke?: No Smoking Status: Never smoker Does the pt drink ETOH?: No Does the pt have substance abuse?: No - Immunizations Immunizations are current?: Yes - POLST Patient has POLST: No POLST Status: Full Code PD ED PE NORMAL - Vitals Vital signs reviewed: Yes (slightly tachy) - General General: Alert and oriented X 3, No acute distress, Other (in pain) - Neck Neck: Supple, no meningeal sign, No bony TTP - Cardiac Cardiac: RRR, No murmur - Respiratory Respiratory: No respiratory distress, Clear bilaterally - Abdomen Abdomen: Other (LLQ TTP without surgical signs.) - Back Back: No CVA TTP, No spinal TTP - Derm Derm: Normal color, Warm and dry - Extremities Extremities: No edema, No calf tenderness / cord - Neuro Neuro: Alert and oriented X 3, Normal speech - Psych Psych: Normal mood, Normal affect Results - Vitals Vitals: Vital Signs - 24 hr 08/04/18 08/04/18 08/04/18 14:59 18:36 19:26 Temperature 37.0 C Heart Rate 102 H 88 67 Respiratory 18 16 16 Rate Blood Pressure 146/91 H 134/80 H 150/114 H O2 Saturation 97 98 98 Oxygen O2 Source Room air - Labs Labs: Laboratory Tests 08/04/18 08/04/18 08/04/18 15:19 15:19 18:40 WBC 11.1 H RBC 4.46 Hgb 13.8 Hct 40.1 MCV 89.9 MCH 31.0 MCHC 34.5 RDW 13.5 Plt Count 344 MPV 7.4 L Neut # (Auto) 6.5 Lymph # (Auto) 3.2 [place] # (Auto) 1.0 Eos # (Auto) 0.3 Baso # (Auto) 0.1 Absolute Nucleated RBC 0.00 Nucleated RBC % 0.0 Sodium 140 Potassium 3.8 Chloride 105 Carbon Dioxide 24 Anion Gap 11.0 BUN 14 Creatinine 0.9 Estimated GFR (MDRD) 64 L Glucose 115 H Calcium 9.3 Total Bilirubin 0.5 AST 25 ALT 35 Alkaline Phosphatase 74 Total Protein 7.2 Albumin 3.8 Globulin 3.4 Albumin/Globulin Ratio 1.1 Lipase 18 L Urine Color YELLOW Urine Clarity CLEAR Urine pH 6.5 Ur Specific [place] 1.025 Urine Protein NEGATIVE Urine Glucose (UA) NEGATIVE Urine Ketones NEGATIVE Urine Occult Blood NEGATIVE Urine Nitrite NEGATIVE Urine Bilirubin NEGATIVE Urine Urobilinogen 0.2 (NORMAL) Ur Leukocyte Esterase NEGATIVE Ur Microscopic Review NOT INDICATED Urine Culture Comments NOT INDICATED PD MEDICAL DECISION MAKING - ED course ED course: 58-year-old woman with recurrent known diverticulitis presents with flare of same. She did not want a CT or admission. She simply wanted pain control and nausea can she is been throwing up her antibiotics. It was difficult to control her pain and she was repeatedly offered a CT and/or admission which she declined. She has to take care of her dogs. Departure - Departure Disposition: 01 Home, Self Care Clinical Impression: Acute diverticulitis Condition: Good Record reviewed to determine appropriate education?: Yes Prescriptions: Oxycodone HCl/Acetaminophen [Percocet 5-325 mg Tablet] 1 - 2 each PO Q6H PRN #14 tablet PRN Reason: pain Promethazine [Phenergan] 25 mg PO Q6H PRN #10 tab PRN Reason: Nausea / Vomiting Comments: Follow-up with your surgeon as scheduled for evaluation for partial colectomy. Return anytime if worse or if pain is uncontrolled or ED if you develop new or concerning symptoms. Your blood pressure was elevated today on check into the emergency department. This does not mean that you have hypertension, it is a common phenomenon to come to the emergency department and have elevated blood pressure. I recommend that you see your primary care physician within the week to have it rechecked when you are feeling better.
[2018-08-04] MEDS ORDERED: metroNIDAZOLE 500 MG/100 ML 500 MG/100 ML BAG IV ONE (17:12)
[2018-08-04] MEDS ORDERED: CIPROFLOXACIN 400 MG/200 ML 200 ML IV ONE (17:12)
[2018-08-04 19:04] LABS: BILIRUBIN,URINE NEGATIVE (NEGATIVE); GLUCOSE, URINE (UA) NEGATIVE (NEGATIVE); KETONES,URINE (UA) NEGATIVE (NEGATIVE); LEUKOCYTE ESTERASE, URINE NEGATIVE (NEGATIVE); NITRITE,URINE NEGATIVE (NEGATIVE); OCCULT BLOOD,URINE NEGATIVE (NEGATIVE); PH,URINE 6.5 PH (5.0-7.5); PROTEIN,URINE NEGATIVE (NEGATIVE); UROBILINOGEN,URINE 0.2 (NORMAL) E.U./dL (NORMAL)
[2018-08-04 19:22] LABS: CLARITY,URINE CLEAR (CLEAR)
[2018-08-04] MEDS ORDERED: ONDANSETRON ODT 4 MG Prepack 2 TL STA (20:39)
[2018-08-04] MEDS ORDERED: MORPHINE 10 MG/ML VIAL IVP STA (20:39)
[2018-08-04] MEDS ORDERED: oxyCODONE/ACET 5/325 Prepack 4 PO STA (20:39)
[2018-08-04 20:59] VITALS: BP 142/95
--- NOTE | 2018-08-06 21:19 | ED Physician Documentation ---
ED Addendum - Addendum Addendum: 08/06/18 21:18 Review of systems: General: Negative for fevers or chills Cardiovascular: Negative for chest pain or palpitations Pulmonary: Negative for shortness of breath or cough Abdominal: Positive for pain, negative for nausea Neurologic: Negative for headache
== END 2018-08-04 21:25 | disposition home or self-care (01) ==
LOC: ED 14:51
DX: K57.92 Diverticulitis of intestine, part unspecified, without perforation or abscess without bleeding (principal); I10 Essential (primary) hypertension; E03.9 Hypothyroidism, unspecified; Z85.3 Personal history of malignant neoplasm of breast; Z90.10 Acquired absence of unspecified breast and nipple; Z92.3 Personal history of irradiation; Z92.21 Personal history of antineoplastic chemotherapy
CPT/HCPCS: 36415; 80053; 81003; 83690; 85025; 96365; 96367; 96375; 96376; 99283; 99284; J1170; 81001; 87086

== ENCOUNTER 2018-08-11 20:32 | Emergency (ER) | payer OTHER ==
[2018-08-11 21:46] LABS: BASOPHILS % (AUTO) 0.3 %; EOSINOPHILS # (AUTO) 0.3 10^3/uL (0.0-0.7); EOSINOPHILS % (AUTO) 2.5 %; HGB - HEMOGLOBIN 14.8 g/dL (12.0-16.0); LYMPHOCYTES # (AUTO) 4.4 10^3/uL (1.5-3.5); LYMPHOCYTES % (AUTO) 39.3 %; MEAN CORPUSCULAR HEMOGLOBIN 30.6 pg (27.0-31.0); MEAN CORPUSCULAR HGB CONC 33.3 g/dL (32.0-36.0); MEAN CORPUSCULAR VOLUME 91.8 fL (81.0-99.0); MEAN PLATELET VOLUME 7.7 fL (7.9-10.8); MONOCYTES # (AUTO) 0.7 10^3/uL (0.0-1.0); MONOCYTES % (AUTO) 6.5 %; NEUTROPHILS # (AUTO) 5.8 10^3/uL (1.5-6.6); NEUTROPHILS % (AUTO) 51.4 %; PLT - PLATELET COUNT 343 10^3/uL (130-450); RED BLOOD COUNT 4.84 10^6/uL (4.20-5.40); RED CELL DISTRIBUTION WIDTH 13.6 % (12.0-15.0); WHITE BLOOD COUNT 11.2 x10^3/uL (4.8-10.8)
[2018-08-11 21:54] LABS: ALBUMIN 4.4 g/dL (3.2-5.5); ALBUMIN/GLOBULIN RATIO 1.3 (1.0-2.2); BILIRUBIN,TOTAL 0.7 mg/dL (0.2-1.0); CREATININE 0.7 mg/dL (0.4-1.0); TOTAL PROTEIN 7.9 g/dL (6.7-8.2)
--- NOTE | 2018-08-11 21:55 | ED Physician Documentation ---
PD HPI ABD PAIN - Stated complaint Stated Complaint: LT SIDE ABD PX - Chief complaint Chief Complaint: Abd Pain - History obtained from History obtained from: Patient - History of Present Illness Timing - onset: Last night Timing - details: Gradual onset Pain level max: 8 Pain level now: 8 Quality: Pain Location: LLQ Radiation: Other (does not radiate) Improved by: Laying still Worsened by: Moving, Palpation Associated symptoms: Nausea. No: Fever, Vomiting, Diarrhea, Constipation Similar symptoms before: Diagnosis (patient feels this is similar to previous episodes of diverticulitis) Recently seen: Emergency Dept, Admitted - Additional information Additional information: c/o nausea and LLQ pain, patient says "it's my diverticulitis". symptoms started overnight last night. She was T+R from this ED 07/25 for similar symptoms and treated empirically for diverticulitis (no imaging performed at that time), but returned 07/27 for worsening symptoms despite pain medication and antibiotics. She was admitted 07/27 after imaging (CT) revealed diverticulitis, discharged 07/30 with 7-day course of antibiotics which she has completed. She returned to ED 08/04 c/o recurrence of LLQ pain, discharged after blood work and multiple doses of IV opiate medications (dilaudid followed by morphine) as well as antinauseants. She was still on antibiotics at that time and did complete the 7 days as prescribed. Review of Systems Constitutional: denies: Fever, Chills, Sweats Cardiac: reports: Reviewed and negative Respiratory: reports: Reviewed and negative GI: reports: Abdominal Pain, Nausea. 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 : None HEENT: None Psych: Depression, Anxiety, ADD/ADHD Musculoskeletal: Osteoarthritis, Chronic back pain Derm: None - Past Surgical History Past Surgical History: Yes General: Appendectomy Ortho: Spine surgery /SHREDDING MACHINE OPERATOR: Mastectomy - Present Medications Home Medications: Ambulatory Orders Medication Instructions Recorded Confirmed Venlafaxine HCl [Venlafaxine HCl 75 mg PO QPM 06/17/17 07/28/18 ER] hydroCHLOROthiazide 25 mg PO DAILY 08/10/17 07/28/18 [Hydrochlorothiazide] Albuterol Sulfate [Proair 2 puffs INH Q4H PRN 03/02/18 07/28/18 Respiclick] Thyroid,Pork [[place] Thyroid] 120 mg PO QDAC 03/02/18 07/28/18 Venlafaxine HCl [Venlafaxine HCl 150 mg PO DAILY 03/02/18 07/28/18 ER] traZODone [Desyrel] 200 mg PO HS PRN 03/02/18 07/28/18 Ondansetron Odt [Zofran Odt] 4 mg TL Q6H PRN #10 tablet 07/25/18 07/27/18 Lisinopril 5 mg PO DAILY 07/27/18 07/27/18 Morphine ER 30 mg PO UD 07/27/18 07/27/18 Oxycodone HCl 10 mg PO DAILY 07/27/18 07/27/18 oxyCODONE [Roxicodone] 5 - 10 mg PO Q6H PRN 07/27/18 07/27/18 Ciprofloxacin HCl [Cipro] 500 mg PO BID #14 tablet 07/30/18 metroNIDAZOLE [Flagyl] 500 mg PO QID #28 tablet 07/30/18 oxyCODONE [Roxicodone] 10 mg PO Q4HR PRN #42 tablet 07/30/18 Oxycodone HCl/Acetaminophen 1 - 2 each PO Q6H PRN #14 tablet 08/04/18 [Percocet 5-325 mg Tablet] Promethazine [Phenergan] 25 mg PO Q6H PRN #10 tab 08/04/18 Amox/Clav 875/125 [Augmentin] 1 each PO Q12H 10 Days #20 tablet 08/12/18 Oxycodone HCl/Acetaminophen 1 - 2 each PO Q6H PRN #14 tablet 08/12/18 [Percocet 5-325 mg Tablet] Promethazine [Phenergan] 25 mg PO Q6H PRN #10 tab 08/12/18 - Allergies Allergies/Adverse Reactions: Allergies Allergy/AdvReac Type Severity Reaction Status Date / Time adhesive tape Allergy Rash Verified 08/11/18 20:45 latex Allergy Rash Verified 08/11/18 20:45 hydrocodone bitartrate * AdvReac Itching Verified 08/11/18 20:45 [From Vicodin] - Social History Does the pt smoke?: No Smoking Status: Never smoker Does the pt drink ETOH?: No Does the pt have substance abuse?: No - Immunizations Immunizations are current?: Yes - POLST Patient has POLST: No POLST Status: Full Code PD ED PE NORMAL - Vitals Vital signs reviewed: Yes - General General: Alert and oriented X 3, No acute distress, Well developed/nourished - Cardiac Cardiac: RRR, No murmur - Respiratory Respiratory: No respiratory distress, Clear bilaterally - Abdomen Abdomen: Soft, Non distended, Other (LLQ tenderness without guarding or rebound) - Back Back: No CVA TTP - Derm Derm: Normal color, Warm and dry Results - Vitals Vitals: Vital Signs - 24 hr 08/11/18 08/11/18 08/11/18 20:43 23:28 23:53 Temperature 36.5 C 36.7 C Heart Rate 84 70 78 Respiratory 18 16 15 Rate Blood Pressure 141/100 H 145/88 H 142/79 H O2 Saturation 97 100 100 08/12/18 00:25 Temperature 36.5 C Heart Rate 80 Respiratory 16 Rate Blood Pressure 148/88 H O2 Saturation 99 Oxygen O2 Source Room air - Labs Labs: Laboratory Tests 08/11/18 08/11/18 08/11/18 21:30 21:30 23:06 WBC 11.2 H RBC 4.84 Hgb 14.8 Hct 44.5 MCV 91.8 MCH 30.6 MCHC 33.3 RDW 13.6 Plt Count 343 MPV 7.7 L Neut # (Auto) 5.8 Lymph # (Auto) 4.4 H [place] # (Auto) 0.7 Eos # (Auto) 0.3 Baso # (Auto) 0.0 Absolute Nucleated RBC 0.00 Nucleated RBC % 0.0 Sodium 137 Potassium 3.8 Chloride 104 Carbon Dioxide 24 Anion Gap 9.0 BUN 16 Creatinine 0.7 Estimated GFR (MDRD) 86 L Glucose 95 Calcium 10.0 Total Bilirubin 0.7 AST 21 ALT 27 Alkaline Phosphatase 80 Total Protein 7.9 Albumin 4.4 Globulin 3.5 Albumin/Globulin Ratio 1.3 Lipase 19 L Urine Color YELLOW Urine Clarity CLEAR Urine pH 5.5 Ur Specific [place] >=1.030 H Urine Protein NEGATIVE Urine Glucose (UA) NEGATIVE Urine Ketones NEGATIVE Urine Occult Blood NEGATIVE Urine Nitrite NEGATIVE Urine Bilirubin NEGATIVE Urine Urobilinogen 0.2 (NORMAL) Ur Leukocyte Esterase NEGATIVE Ur Microscopic Review NOT INDICATED Urine Culture Comments NOT INDICATED PD MEDICAL DECISION MAKING - ED course Complexity details: reviewed old records, reviewed results, re-evaluated patient, considered differential, d/w patient ED course: Patient has had several CT A/P scans over the past year, and these usually re veal LLQ inflammatory changes c/w diverticulitis. The radiologists' interpretations include suggestion of chronic diverticulitis, as well as fistula formation. She also had inpatient stay in February (2017) for perforated diverticulitis. The EDMD note from her previous visit (08/04) reads "Follow up with your surgeon as scheduled". However, patient indicates to me tonight that she has no scheduled appointments. She says she knows she needs surgery, but she needs to accumulate more hours at work before she can consider the surgery. As with her 07/25 visit (I was the ED physician that night), options were d/w patient and plan we agree on is to treat empirically for diverticulitis rather than reimage at this time. She was given dilaudid IV which she reported did not provide adequate pain relief. Given 15mg oxycodone as a means to transition to PO medications and discharge. I reevaluated her several times during ED stay, and she was not in any obvious or apparent distress on these reevaluations. Departure - Departure Disposition: 01 Home, Self Care Clinical Impression: Abdominal pain Qualifiers: Abdominal location: left lower quadrant Qualified Code(s): R10.32 - Left lower quadrant pain Condition: Good Instructions: ED Diverticulitis Follow-Up: Kathleen Asher MD [Primary Care Provider] - Eris Newman MD [Provider Admit Priv/Credential] - Prescriptions: Amox/Clav 875/125 [Augmentin] 1 each PO Q12H 10 Days #20 tablet Oxycodone HCl/Acetaminophen [Percocet 5-325 mg Tablet] 1 - 2 each PO Q6H PRN #14 tablet PRN Reason: pain Promethazine [Phenergan] 25 mg PO Q6H PRN #10 tab PRN Reason: Nausea / Vomiting Discharge Date/Time: 08/12/18 00:26
[2018-08-11] MEDS ORDERED: AMOX/CLAV 875 MG/125 MG TABLET PO STA (22:20)
[2018-08-11] MEDS ORDERED: AMPICILLIN/SULBACTAM 3 GM in SODIUM CHLORIDE 0.9% MINIBAG 100 ML IV STA (22:21)
[2018-08-11] MEDS ORDERED: HYDROmorphone 1 MG/ML CARPUJECT IVP STA ×2 (22:21→23:28)
[2018-08-11] MEDS ORDERED: PROMETHAZINE INJ 25 MG in SODIUM CHLORIDE 0.9% 50 ML IV STA (22:21)
[2018-08-11] MEDS ORDERED: SODIUM CHLORIDE 0.9% 1,000 ML IV STA (22:22)
[2018-08-11 23:12] LABS: BILIRUBIN,URINE NEGATIVE (NEGATIVE); GLUCOSE, URINE (UA) NEGATIVE (NEGATIVE); KETONES,URINE (UA) NEGATIVE (NEGATIVE); LEUKOCYTE ESTERASE, URINE NEGATIVE (NEGATIVE); NITRITE,URINE NEGATIVE (NEGATIVE); OCCULT BLOOD,URINE NEGATIVE (NEGATIVE); PH,URINE 5.5 PH (5.0-7.5); PROTEIN,URINE NEGATIVE (NEGATIVE); UROBILINOGEN,URINE 0.2 (NORMAL) E.U./dL (NORMAL)
[2018-08-11 23:19] LABS: CLARITY,URINE CLEAR (CLEAR)
[2018-08-12] MEDS ORDERED: oxyCODONE 5 MG TABLET PO STA (00:17)
[2018-08-12 00:26] VITALS: BP 148/88
== END 2018-08-12 00:26 | disposition home or self-care (01) ==
LOC: ED 20:32
DX: R10.32 Left lower quadrant pain (principal); I10 Essential (primary) hypertension; E03.9 Hypothyroidism, unspecified; Z90.10 Acquired absence of unspecified breast and nipple; Z85.3 Personal history of malignant neoplasm of breast
CPT/HCPCS: 36415; 80053; 81003; 83690; 85025; 96365; 96367; 96375; 96376; 99283; 99284; A9270; J1170; J7040; 81001; 87086

== ENCOUNTER 2018-08-18 08:29 | Outpatient (CLI) | payer OTHER | END 2018-08-18 08:30 | disposition home or self-care (01) | LOC: DI 08:29 | PROVIDERS: ATTEND Orthopaedic Surgery | DX: Z53.9 Procedure and treatment not carried out, unspecified reason (principal) ==

== ENCOUNTER 2018-08-18 09:48 | Emergency (ER) | payer OTHER ==
[2018-08-18] MEDS ORDERED: HYDROmorphone 1 MG/ML CARPUJECT IVP STA ×2 (12:11→14:40)
[2018-08-18] MEDS ORDERED: ONDANSETRON 4 MG/2 ML VIAL IVP STA (12:11)
[2018-08-18] MEDS ORDERED: SODIUM CHLORIDE 0.9% 1,000 ML IV ONE (12:11)
[2018-08-18] MEDS ORDERED: IOVERSOL 320 100 ML VIAL IVP ONE ×2 (12:26→13:12)
[2018-08-18 12:27] LABS: BASOPHILS % (AUTO) 0.4 %; EOSINOPHILS # (AUTO) 0.1 10^3/uL (0.0-0.7); EOSINOPHILS % (AUTO) 1.5 %; HGB - HEMOGLOBIN 14.8 g/dL (12.0-16.0); LYMPHOCYTES # (AUTO) 3.2 10^3/uL (1.5-3.5); LYMPHOCYTES % (AUTO) 31.4 %; MEAN CORPUSCULAR HEMOGLOBIN 31.4 pg (27.0-31.0); MEAN CORPUSCULAR HGB CONC 34.5 g/dL (32.0-36.0); MEAN CORPUSCULAR VOLUME 91.1 fL (81.0-99.0); MEAN PLATELET VOLUME 7.7 fL (7.9-10.8); MONOCYTES # (AUTO) 0.8 10^3/uL (0.0-1.0); MONOCYTES % (AUTO) 7.6 %; NEUTROPHILS % (AUTO) 59.1 %; PLT - PLATELET COUNT 342 10^3/uL (130-450); RED BLOOD COUNT 4.72 10^6/uL (4.20-5.40); RED CELL DISTRIBUTION WIDTH 13.7 % (12.0-15.0); WHITE BLOOD COUNT 10.1 x10^3/uL (4.8-10.8)
--- NOTE | 2018-08-18 12:27 | ED Physician Documentation ---
History of Present Illness - Stated complaint Stated Complaint: LOW ABD PX - Chief complaint Chief Complaint: Abd Pain - Additonal information Additional information: hx from pt 58 female prior diverticulitis and colo-mesenteric fistula admitted for diverticulitis that failed outpt tx mid July dc on cipro and flagyl states she never got better another outpt round of cipro flagyl still not better still with LLQ pain also fever NVD has followed up with PMD but not with surgery yet (states referred for colon resection) Review of Systems Constitutional: reports: Fever Cardiac: denies: Chest pain / pressure Respiratory: denies: Dyspnea GI: reports: Abdominal Pain, Nausea, Vomiting, Diarrhea. 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 : None HEENT: None Psych: Depression, Anxiety, ADD/ADHD Musculoskeletal: Osteoarthritis, Chronic back pain Derm: None - Past Surgical History Past Surgical History: Yes General: Appendectomy Ortho: Spine surgery /MOLDING ROOM SUPERVISOR: Mastectomy - Present Medications Home Medications: Ambulatory Orders Medication Instructions Recorded Confirmed Venlafaxine HCl [Venlafaxine HCl 75 mg PO QPM 06/17/17 07/28/18 ER] hydroCHLOROthiazide 25 mg PO DAILY 08/10/17 07/28/18 [Hydrochlorothiazide] Albuterol Sulfate [Proair 2 puffs INH Q4H PRN 03/02/18 07/28/18 Respiclick] Thyroid,Pork [[place] Thyroid] 120 mg PO QDAC 03/02/18 07/28/18 Venlafaxine HCl [Venlafaxine HCl 150 mg PO DAILY 03/02/18 07/28/18 ER] traZODone [Desyrel] 200 mg PO HS PRN 03/02/18 07/28/18 Ondansetron Odt [Zofran Odt] 4 mg TL Q6H PRN #10 tablet 07/25/18 07/27/18 Lisinopril 5 mg PO DAILY 07/27/18 07/27/18 Morphine ER 30 mg PO UD 07/27/18 07/27/18 Oxycodone HCl 10 mg PO DAILY 07/27/18 07/27/18 oxyCODONE [Roxicodone] 5 - 10 mg PO Q6H PRN 07/27/18 07/27/18 Ciprofloxacin HCl [Cipro] 500 mg PO BID #14 tablet 07/30/18 metroNIDAZOLE [Flagyl] 500 mg PO QID #28 tablet 07/30/18 oxyCODONE [Roxicodone] 10 mg PO Q4HR PRN #42 tablet 07/30/18 Oxycodone HCl/Acetaminophen 1 - 2 each PO Q6H PRN #14 tablet 08/04/18 [Percocet 5-325 mg Tablet] Promethazine [Phenergan] 25 mg PO Q6H PRN #10 tab 08/04/18 Amox/Clav 875/125 [Augmentin] 1 each PO Q12H 10 Days #20 tablet 08/12/18 Oxycodone HCl/Acetaminophen 1 - 2 each PO Q6H PRN #14 tablet 08/12/18 [Percocet 5-325 mg Tablet] Promethazine [Phenergan] 25 mg PO Q6H PRN #10 tab 08/12/18 Amox/Clav 875/125 [Augmentin] 1 each PO Q12H #20 tablet 08/18/18 Ondansetron Odt [Zofran] 4 mg TL Q6H PRN #10 tablet 08/18/18 Saccharomyces Boulardii [Florastor] 500 mg PO BID #40 capsule 08/18/18 - Allergies Allergies/Adverse Reactions: Allergies Allergy/AdvReac Type Severity Reaction Status Date / Time adhesive tape Allergy Rash Verified 08/18/18 09:57 latex Allergy Rash Verified 08/18/18 09:57 hydrocodone bitartrate * AdvReac Itching Verified 08/18/18 09:57 [From Vicodin] - Social History Does the pt smoke?: No Smoking Status: Never smoker Does the pt drink ETOH?: No Does the pt have substance abuse?: No - Immunizations Immunizations are current?: Yes - POLST Patient has POLST: No POLST Status: Full Code PD ED PE NORMAL - Vitals Vital signs reviewed: Yes - Neck Neck: Supple, no meningeal sign - Cardiac Cardiac: RRR - Respiratory Respiratory: No respiratory distress, Clear bilaterally - Abdomen Abdomen: Soft, Other (severe TTP with vol guarding LLQ) - Derm Derm: Normal color - Neuro Neuro: Alert and oriented X 3 Results - Vitals Vitals: Vital Signs - 24 hr 08/18/18 08/18/18 09:54 16:18 Temperature 36.8 C 36.7 C Heart Rate 109 H 88 Respiratory 18 18 Rate Blood Pressure 141/95 H 138/88 H O2 Saturation 96 96 Oxygen O2 Source Room air - Labs Labs: Laboratory Tests 08/18/18 08/18/18 08/18/18 12:10 12:10 12:10 WBC 10.1 RBC 4.72 Hgb 14.8 Hct 43.0 MCV 91.1 MCH 31.4 H MCHC 34.5 RDW 13.7 Plt Count 342 MPV 7.7 L Neut # (Auto) 6.0 Lymph # (Auto) 3.2 [place] # (Auto) 0.8 Eos # (Auto) 0.1 Baso # (Auto) 0.0 Absolute Nucleated RBC 0.00 Nucleated RBC % 0.0 Sodium 137 Potassium 3.7 Chloride 106 Carbon Dioxide 23 Anion Gap 8.0 BUN 15 Creatinine 0.8 Estimated GFR (MDRD) 74 L Glucose 85 Lactic Acid 1.0 Calcium 9.9 Total Bilirubin 0.6 AST 19 ALT 23 Alkaline Phosphatase 74 Total Protein 7.3 Albumin 4.1 Globulin 3.2 Albumin/Globulin Ratio 1.3 Lipase 24 Urine Color Urine Clarity Urine pH Ur Specific [place] Urine Protein Urine Glucose (UA) Urine Ketones Urine Occult Blood Urine Nitrite Urine Bilirubin Urine Urobilinogen Ur Leukocyte Esterase Ur Microscopic Review Urine Culture Comments 08/18/18 13:05 WBC RBC Hgb Hct MCV MCH MCHC RDW Plt Count MPV Neut # (Auto) Lymph # (Auto) [place] # (Auto) Eos # (Auto) Baso # (Auto) Absolute Nucleated RBC Nucleated RBC % Sodium Potassium Chloride Carbon Dioxide Anion Gap BUN Creatinine Estimated GFR (MDRD) Glucose Lactic Acid Calcium Total Bilirubin AST ALT Alkaline Phosphatase Total Protein Albumin Globulin Albumin/Globulin Ratio Lipase Urine Color YELLOW Urine Clarity CLEAR Urine pH 6.0 Ur Specific [place] 1.025 Urine Protein NEGATIVE Urine Glucose (UA) NEGATIVE Urine Ketones NEGATIVE Urine Occult Blood NEGATIVE Urine Nitrite NEGATIVE Urine Bilirubin NEGATIVE Urine Urobilinogen 0.2 (NORMAL) Ur Leukocyte Esterase NEGATIVE Ur Microscopic Review NOT INDICATED Urine Culture Comments NOT INDICATED - Rads (name of study) CT AP with contrast Radiology: See rad report (slight improvement of 8 cm length of diverticultitis mid sig,oid colon - again no perf or abscess) PD MEDICAL DECISION MAKING - ED course ED course: CT shows persistent diverticulitis will try augmentin/unasyn instead has surgical fup at this pt do not think req inpt care pt is quite demanding about pain meds gave one dose of dilaudid but after MICHELLE and chart review do not feel further doses and raven not an rx is appropriate explained to pt that I do not feel narcotics are a good idea gave ofirmev toradol and bentyl she is not happy but understands my reasoning and plan she also called her PMD who also would not rx narcotics this is pts 40th ER visit to Departure - Departure Disposition: 01 Home, Self Care Clinical Impression: Diverticulitis Condition: Good Instructions: ED Diverticulitis Follow-Up: Reagan Landaverde MD [Provider Admit Priv/Credential] - (to discuss colon resection as previously planned ) Kathleen Asher MD [Primary Care Provider] - (for a recheck later this week, to submit a diarrhea sample for c-diff testing, and to discuss any pain medications) Prescriptions: Amox/Clav 875/125 [Augmentin] 1 each PO Q12H #20 tablet Ondansetron Odt [Zofran] 4 mg TL Q6H PRN #10 tablet PRN Reason: Nausea / Vomiting Saccharomyces Boulardii [Florastor] 500 mg PO BID #40 capsule Comments: The blood work was fine But the CT scan shows continued diverticulitis Thankfully there is no perforation or abscess So as before, the first step is to try treating you with oral antibiotics and a clear liquid diet. Then you need a recheck with your PMD in 48 hr - if improving then continue the outpatient plan, if worse then probably re-admit you. I also wanted to test you for c-diff but we were not able to get a stool sample today so please try and collect that at home for Dr Asher to order testing on. I have prescribed the antibiotic and a probiotic and zofran for any vomiting. Because you are on narcotics at home already, any pain medications beyond tylenol need to be prescribed by your PMD Discharge Date/Time: 08/18/18 16:19
[2018-08-18 12:36] LABS: ALBUMIN 4.1 g/dL (3.2-5.5); ALBUMIN/GLOBULIN RATIO 1.3 (1.0-2.2); BILIRUBIN,TOTAL 0.6 mg/dL (0.2-1.0); CALCIUM 9.9 mg/dL (8.5-10.3); CREATININE 0.8 mg/dL (0.4-1.0); TOTAL PROTEIN 7.3 g/dL (6.7-8.2)
[2018-08-18 13:22] LABS: BILIRUBIN,URINE NEGATIVE (NEGATIVE); GLUCOSE, URINE (UA) NEGATIVE (NEGATIVE); KETONES,URINE (UA) NEGATIVE (NEGATIVE); LEUKOCYTE ESTERASE, URINE NEGATIVE (NEGATIVE); NITRITE,URINE NEGATIVE (NEGATIVE); OCCULT BLOOD,URINE NEGATIVE (NEGATIVE); PROTEIN,URINE NEGATIVE (NEGATIVE); UROBILINOGEN,URINE 0.2 (NORMAL) E.U./dL (NORMAL)
[2018-08-18 13:35] LABS: CLARITY,URINE CLEAR (CLEAR)
--- NOTE | 2018-08-18 13:41 | CT Report ---
Reason: recent diverticulitis worsening sx Procedure Date: 08/18/2018 Accession Number: [id number] / [id number] Procedure: CT - Abdomen/Pelvis W/ CPT Code: FULL RESULT: EXAM: CT ABDOMEN AND PELVIS EXAM DATE: 08/18/2018 01:16 PM. CLINICAL HISTORY: Recent diagnosis of diverticulitis. Increasing abdominal pain. COMPARISONS: ABDOMEN/PELVIS W/ 07/27/2018 2:45 PM. TECHNIQUE: Routine helical CT imaging was performed through the abdomen and pelvis. IV contrast: 90 mL Optiray 320. Enteric contrast: No. Reconstructions: Coronal and sagittal. In accordance with CT protocol optimization, one or more of the following dose reduction techniques were utilized for this exam: automated exposure control, adjustment of mA and/or KV based on patient size, or use of iterative reconstructive technique. FINDINGS: Lung Bases: Unremarkable. Liver: Normal. No masses. Gallbladder/Bile Ducts: Unremarkable. Spleen: Normal. Pancreas: Normal. Adrenal Glands: Normal. Kidneys: Normal. No masses or hydronephrosis. Peritoneal Cavity/Bowel: No free air. Multiple diverticula off the colon. Very slight decrease in the small amount of edema surrounding the abnormal 8 cm in length proximal mid sigmoid colon. This colon wall remains moderately asymmetric thickened. No extraluminal air nor abscess. The more proximal colon small in caliber. Small bowel is of normal caliber. Slight decrease in the 4 x 3 cm more focal area of mesenteric edema involving the mid section, coronal image 41. Appendix not visualized but no inflammatory changes adjacent to the cecum. Pelvic Organs: Normal. The bladder and visualized pelvic organs are within normal limits. Vasculature: No aneurysms or other significant abnormality. Bones: No significant abnormality. Other: None. IMPRESSION: 1. Slight interval improvement of the abnormal 8 cm length proximal and mid sigmoid colon indicating limited response to therapy. 2. Stable, otherwise unremarkable exam. RADIA
[2018-08-18] MEDS ORDERED: AMOX/CLAV 875 MG/125 MG TABLET PO STA (14:20)
[2018-08-18] MEDS ORDERED: AMPICILLIN/SULBACTAM 3 GM in SODIUM CHLORIDE 0.9% MINIBAG 100 ML IV STA (14:40)
[2018-08-18] MEDS ORDERED: KETOROLAC 60 MG/2 ML VIAL IVP STA (14:45)
[2018-08-18] MEDS ORDERED: ACETAMINOPHEN 1,000 MG/100 ML 100 ML IV STA (14:45)
[2018-08-18] MEDS ORDERED: DICYCLOMINE 10 MG CAPSULE PO STA (16:05)
[2018-08-18 16:44] VITALS: BP 138/88
== END 2018-08-18 16:19 | disposition home or self-care (01) ==
LOC: ED 09:48
DX: K57.32 Diverticulitis of large intestine without perforation or abscess without bleeding (principal); I10 Essential (primary) hypertension
CPT/HCPCS: 36415; 74177; 80053; 81003; 83605; 83690; 85025; 96365; 96367; 96375; 99283; 99284; A9270; J0131; J1170; Q9967; 81001; 87086

== ENCOUNTER 2018-08-19 10:35 | Observation (INO) | payer OTHER ==
[2018-08-19] MEDS ORDERED: ONDANSETRON 4 MG/2 ML VIAL IVP STA (10:44)
[2018-08-19] MEDS ORDERED: SODIUM CHLORIDE 0.9% 1,000 ML IV ONE (10:44)
--- NOTE | 2018-08-19 10:45 | ED Physician Documentation ---
History of Present Illness - Stated complaint Stated Complaint: ABD PX - Chief complaint Chief Complaint: Abd Pain - Additonal information Additional information: hx from pt and EMR pt seen by me yesterday for abd pain work up showed continued diverticulitis with minimal improvement despite 2 courses of PO cipro flagyl as well as admit for IV of same meds so I gave IV unasyn and dc on PO augmentin pt returns for worsening sx (subj fever pain NVD) and inability to tolerate PO Review of Systems Constitutional: reports: Fever Throat: denies: Sore throat Cardiac: denies: Chest pain / pressure Respiratory: denies: Dyspnea GI: reports: Abdominal Pain, Nausea, Vomiting, Diarrhea Neurologic: reports: Generalized weakness Endocrine: denies: Easy bruising / bleeding Immunocompromised: denies: Immunocompromised PD PAST MEDICAL HISTORY - Past Medical History Cardiovascular: Hypertension Respiratory: Asthma, Shortness of breath Neuro: Headaches, Motion sickness Endocrine/Autoimmune: HyPOthyroidism GI: Diverticulitis 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 : None HEENT: None Psych: Depression, Anxiety, ADD/ADHD Musculoskeletal: Osteoarthritis, Chronic back pain Derm: None - Past Surgical History Past Surgical History: Yes General: Appendectomy Ortho: Spine surgery /PROM BURN OFF OPERATOR: Mastectomy - Present Medications Home Medications: Ambulatory Orders Medication Instructions Recorded Confirmed Venlafaxine HCl [Venlafaxine HCl 75 mg PO QPM 06/17/17 08/19/18 ER] hydroCHLOROthiazide 25 mg PO DAILY 08/10/17 08/19/18 [Hydrochlorothiazide] Albuterol Sulfate [Proair 2 puffs INH Q4H PRN 03/02/18 08/19/18 Respiclick] Thyroid,Pork [[place] Thyroid] 120 mg PO QDAC 03/02/18 08/19/18 Venlafaxine HCl [Venlafaxine HCl 150 mg PO DAILY 03/02/18 08/19/18 ER] traZODone [Desyrel] 200 mg PO HS PRN 03/02/18 08/19/18 Ondansetron Odt [Zofran Odt] 4 mg TL Q6H PRN #10 tablet 07/25/18 08/19/18 Lisinopril 5 mg PO DAILY 07/27/18 08/19/18 Promethazine [Phenergan] 25 mg PO Q6H PRN #10 tab 08/04/18 08/19/18 Cyclobenzaprine [Flexeril] PRN PRN 08/19/18 - Allergies Allergies/Adverse Reactions: Allergies Allergy/AdvReac Type Severity Reaction Status Date / Time adhesive tape Allergy Rash Verified 08/18/18 09:57 latex Allergy Rash Verified 08/18/18 09:57 hydrocodone bitartrate * AdvReac Itching Verified 08/18/18 09:57 [From Vicodin] - Social History Does the pt smoke?: No Smoking Status: Never smoker Does the pt drink ETOH?: No Does the pt have substance abuse?: No - Immunizations Immunizations are current?: Yes - POLST Patient has POLST: No POLST Status: Full Code PD ED PE NORMAL - Vitals Vital signs reviewed: Yes - Neck Neck: Supple, no meningeal sign - Cardiac Cardiac: RRR - Respiratory Respiratory: No respiratory distress, Clear bilaterally - Abdomen Abdomen: Soft, Other (TTP L mid abd s rebound or guarding) - Derm Derm: Normal color - Neuro Neuro: Alert and oriented X 3 Results - Vitals Vitals: Vital Signs - 24 hr 08/19/18 10:37 Temperature 36.8 C Heart Rate 96 Respiratory 18 Rate Blood Pressure 142/95 H O2 Saturation 98 Oxygen O2 Source Room air PD MEDICAL DECISION MAKING - ED course ED course: CT yesterday showed limited interval improvement from prior Nov imaging - continued diverticultis s abscess or perf has failed outpt tx with augmentin - cannot keep pills down despite antiemetics will need re-admit already has referral to surgery for consideration of resection (see EMR) but has not gotten into office for appt yet spoke to Dr Monsivais at 1050 AM ordered labs do not feel further imaging is needed today as she had a CT yesterday Departure - Departure Disposition: [facility] DC/Xfer Clinical Impression: Diverticulitis Condition: Fair Discharge Date/Time: 08/19/18 11:55
[2018-08-19] MEDS ORDERED: MORPHINE 2 MG/ML CARPUJECT IVP STA (10:56)
[2018-08-19] MEDS ORDERED: traZODone 50 MG TABLET PO PRN (11:01)
[2018-08-19 12:00] LABS: BASOPHILS % (AUTO) 0.5 %; EOSINOPHILS # (AUTO) 0.3 10^3/uL (0.0-0.7); HGB - HEMOGLOBIN 14.5 g/dL (12.0-16.0); LYMPHOCYTES # (AUTO) 3.3 10^3/uL (1.5-3.5); LYMPHOCYTES % (AUTO) 32.4 %; MEAN CORPUSCULAR HEMOGLOBIN 31.2 pg (27.0-31.0); MEAN CORPUSCULAR HGB CONC 33.7 g/dL (32.0-36.0); MEAN CORPUSCULAR VOLUME 92.7 fL (81.0-99.0); MEAN PLATELET VOLUME 7.6 fL (7.9-10.8); MONOCYTES # (AUTO) 0.7 10^3/uL (0.0-1.0); MONOCYTES % (AUTO) 7.2 %; NEUTROPHILS # (AUTO) 5.8 10^3/uL (1.5-6.6); NEUTROPHILS % (AUTO) 56.9 %; PLT - PLATELET COUNT 331 10^3/uL (130-450); RED BLOOD COUNT 4.63 10^6/uL (4.20-5.40); RED CELL DISTRIBUTION WIDTH 13.7 % (12.0-15.0); WHITE BLOOD COUNT 10.1 x10^3/uL (4.8-10.8)
[2018-08-19] MEDS ORDERED: MORPHINE ER 15 MG TABLET PO SCH (12:00)
[2018-08-19 12:09] LABS: CALCIUM 9.2 mg/dL (8.5-10.3); CREATININE 0.7 mg/dL (0.4-1.0)
[2018-08-19] MEDS: PIPERACILLIN/TAZOBACTAM 3.375 GM in SODIUM CHLORIDE 0.9% MINIBAG 100 ML IV SCH ×2 (12:31→17:58)
[2018-08-19] MEDS: SODIUM CHLORIDE 0.9% 1,000 ML IV SCH ×2 (12:31→21:56)
[2018-08-19] MEDS: MORPHINE 2 MG/ML CARPUJECT IVP PRN ×6 (13:17→22:46)
[2018-08-19] MEDS: ONDANSETRON 4 MG/2 ML VIAL IVP PRN (14:57)
[2018-08-19] MEDS: VENLAFAXINE ER 75 MG CAPSULE PO SCH (15:02)
--- NOTE | 2018-08-19 15:34 | HISTORY & PHYSICAL EXAMINATION ---
Chief Complaint - Chief Complaint Chief Complaint: Left lower quadrant pain, recurrent, with nausea and vomiting History of Present Illness - Admitted From Admitted From:: Home/ER - History Obtained From Records Reviewed: [facility] History obtained from: Dr. Newman, Dr. Plasencia, and the patient Exam Limitations: none - History of Present Illness HPI Comment/Other: She is a 58-year-old morbidly obese white female that was admitted with diverticulitis in February of this year. She has a long history of previous episodes of diverticulitis and was seen in early 2017 with 2 bouts. Pain never completely resolves in between episodes. She delayed getting surgical evaluation because "they wanted the infection to be gone before she had surgery." The CAT scan in October 2017 showed her to have CT changes consistent with mild sigmoid diverticulitis. There was a drastic change with a February 2018 CAT scan resulting in admission where she had sigmoid diverticulitis, fistula tracts extending into the mesentery originating in the mid and proximal sigmoid colon. Gas was seen within the mesentery. No large volume pneumoperitoneum. No abscess or obstruction. Because she was felt to be able to be managed medically, not surgically, general surgeon Dr. Gilmar Newman strongly felt that the patient be treated with long-term IV antibiotic therapy in an effort to avoid surgery. He also felt that if he did have to do surgery, he would rather have inflammation and infection much better controlled. To that end, she was transferred to [facility] for long-term IV antibiotic therapy. The patient left A. A follow-up CAT scan in May 2018 showed her to have mild residual or recurrent sigmoid colon diverticulitis. A persistent sigmoid colocolic fistula. No evidence of abscess or bowel obstruction. She continues to have left lower quadrant pain. And was again seen in the emergency room and had another CAT scan July 2018. She had focal fat stranding and wall thickening of a segment of the sigmoid colon in the left hemipelvis surrounding a cluster of diverticuli consistent with diverticulitis without abscess formation. She had distortion of this portion of the sigmoid colon with soft tissue band likely representing adhesions from prior bouts of inflammation. No free fluid, free air or adenopathy. She has been seen by general surgery brian, but this time by Dr. Eris Newman who offered her surgery. He says that resection would be the definitive treatment. However, she did not want to have surgery because of timing. 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 He felt her to say that she did not want surgery at all. She has been seen 3 times now between August 06 and today. One was August 11, one was August 18, and today. CAT scan done August 18 shows her to have slight interval improvement of the abnormal 8 cm length proximal and mid sigmoid colon indicating limited response to therapy. Each time she is given pain medicine, oral antibiotics. She returns today, afte r being seen yesterday, for subjective fever, nausea vomiting. Really does not want to eat anything and is not able to tolerate p.o. In the ER she was afebrile, normotensive, not hypoxic. White cell count is normal. Nevertheless she feels she is unable to keep her oral antibiotics down and this is in significant pain requesting IV opiates. This patient was in an opiate contract. She is usually followed by a pain clinic. But she is not been able to follow through with keeping up her visits and as such is no longer getting her long-acting narcotics from them. Her primary care provider also is not going to be providing her with long-acting narcotics. She was tapered off of her MS Contin 2 weeks ago and has not received any more opiates from her PCP. She describes being in significant pain here. And is requesting an increase in frequency and strength of the morphine which is 2 mg q2h prn. She also states that the pain has gotten strong enough that she is tired of dealing with it. She is requesting that Dr. Newman "just cut it out". Currently pain is in the left lower quadrant. Nonradiating. She has no appetite. She is still passing flatus. She had subjective fevers at home, none here. No bloody stool. Emesis was yesterday and today but no blood in the emesis. There has been no weight loss. Appetite is diminished. History - Past Medical History Cardiovascular: reports: Hypertension Respiratory: reports: Asthma, Shortness of breath Neuro: reports: Headaches, Motion sickness Endocrine/Autoimmune: reports: HyPOthyroidism GI: reports: Diverticulitis ADMINISTRATIVE HEARING OFFICER: reports: Breast cancer : reports: None HEENT: reports: None Psych: reports: Depression, Anxiety, ADD/ADHD Musculoskeletal: reports: Osteoarthritis, Chronic back pain Derm: reports: None MRSA Hx?: No - Past Surgical History General: reports: Appendectomy Ortho: reports: Spine surgery /ADMINISTRATIVE HEARING OFFICER: reports: Mastectomy - Family & Social History Family History: Mother: Alive and Well (Mother has macular degeneration 90 years old.), Father: , Cancer Family History Comment/Other: The patient says her siblings are all alive and well. There is a history of hypertension, there is no known history of myocardial infarction, coronary artery disease, diabetes mellitus, or strokes. Living arrangement: At home Living Situation: With friend(s) Social History Notes: The patient is , She has 1 adopted son. She was born in [place] but spent most of her capsule maker traveling throughout [place] as her parents were teachers who worked abroad. She lives on [address] with a roommate and shares a house. 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 She denies any current use of tobacco, alcohol or recreational drugs. - Substance History Use: Uses substance without health or social issues: NONE - POLST Patient has POLST: No POLST Status: Full Code Meds/Allgy - Home Medications Home Medications: Ambulatory Orders Medication Instructions Recorded Confirmed Venlafaxine HCl [Venlafaxine HCl 75 mg PO QPM 06/17/17 08/19/18 ER] hydroCHLOROthiazide 25 mg PO DAILY 08/10/17 08/19/18 [Hydrochlorothiazide] Albuterol Sulfate [Proair 2 puffs INH Q4H PRN 03/02/18 08/19/18 Respiclick] Thyroid,Pork [[place] Thyroid] 120 mg PO QDAC 03/02/18 08/19/18 Venlafaxine HCl [Venlafaxine HCl 150 mg PO DAILY 03/02/18 08/19/18 ER] traZODone [Desyrel] 200 mg PO HS PRN 03/02/18 08/19/18 Ondansetron Odt [Zofran Odt] 4 mg TL Q6H PRN #10 tablet 07/25/18 08/19/18 Lisinopril 5 mg PO DAILY 07/27/18 08/19/18 Promethazine [Phenergan] 25 mg PO Q6H PRN #10 tab 08/04/18 08/19/18 Cyclobenzaprine [Flexeril] 5 - 10 mg PO TID PRN 08/19/18 08/19/18 - Allergies Allergies/Adverse Reactions: Allergies Allergy/AdvReac Type Severity Reaction Status Date / Time adhesive tape Allergy Rash Verified 08/18/18 09:57 latex Allergy Rash Verified 08/18/18 09:57 hydrocodone bitartrate * AdvReac Itching Verified 08/18/18 09:57 [From Vicodin] Review of Systems - Constitutional Constitutional: reports: Fatigue, Fever, Chills, Poor appetite. denies: Malaise, Weakness - Eyes Eyes: denies: Pain, Irritation, Blurred vision, Vision loss - Ears, Nose & Throat Ears, Nose & Throat: denies: Ear pain, Hearing loss, Vertigo, Sore throat, Hoarseness - Cardiovascular Cariovascular: denies: Irregular heart rate, Chest pain, Syncope, Exertional dyspnea, Decr. exercise tolerance - Respiratory Respiratory: denies: Cough, Orthopnea, SOB at rest, SOB with exertion - Gastrointestinal Gastrointestinal: reports: Abdominal pain, Abdominal distention, Bloating, Poor appetite - Genitourinary Genitourinary: reports: Incontinence. denies: Dysuria, Frequency, Urgency - Musculoskeletal Musculoskeletal: reports: Muscle pain, Back pain, Muscle aches, Stiffness, Joint pain. denies: Limited range of motion, Muscle weakness, Gout - Integumentary Integumentary: denies: Rash, Pruritis, Lesions, Dryness - Neurological Neurological: denies: General weakness, Focal weakness, Headache, Dizziness - Psychiatric Psychiatric: reports: Depression, Anxiety. denies: Suicidal, Delusions, Hallucinations - Endocrine Endocrine: denies: Polyuria, Polydypsia, Polyphagia - Hematologic/Lymphatic Hematologic/Lymphatic: denies: Anemia, Bruising Prior Level of Functionality: Independent with activities of daily living. Still pays her own bills. 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 Able to take care of her house. Exam - Vital Signs Reviewed Vital Signs: Yes Vital Signs: Vital Signs x48h Temp Pulse Pulse Resp BP BP Pulse Ox 08/19/18 12:05 36.7 C 96 20 144/105 H 100 08/19/18 10:37 36.8 C 96 18 142/95 H 98 - Physical Exam General Appearance: positive: Alert, Moderate distress (Subjective, from abdominal pain. There is no tachypnea, patient appears calm, tearful only when I declined giving increasing pain meds. Watching TV. Using the remote.), Other (Moderately overweight well-nourished well-developed white female who looks Older than her stated age) Eyes Bilateral: positive: PERRL ENT: positive: Pharynx nml Neck: positive: No JVD. negative: Stiff neck, Carotid bruit Respiratory: positive: Chest non-tender. negative: Wheezes, Rales, Rhonchi Cardiovascular: positive: Regular rate & rhythm, No murmur. negative: Gallop/S4, Friction rub Peripheral Pulses: positive: 1+ Abdomen: positive: Nml bowel sounds, No distention, Tenderness (Left lower quadrant), Guarding. negative: Rebound Skin: positive: Warm, Dry, Other (mastectomy scar) Extremities: positive: Full ROM, No pedal edema Neurologic/Psychiatric: positive: Oriented x3, CN's nml (2-12), Motor nml. negative: Weakness Reflexes: Bicep (R): 1+, Bicep (L): 1+, Knee (R): 1+, Knee (L): 1+, Ankle (R): 0, Ankle (L): 0 Babinski Reflex: Right: Down, Left: Down Conclusion/Plan - Problem List (1) Diverticulitis large intestine w/o perforation or abscess w/o bleeding Conclusion/Plan: Recurrent episodes now ongoing for close to 2 years. Starting February of this year now associated with colocolic fistulas, some gas in the mesentery, and increasing pain and dysfunction. CT scan has showed improvement between February and now. But she still has continued inflammatory changes. Initially not ready for surgery because of conflict with time scheduling and work requirements. Now ready for surgery. No fever, no white cell count. Plan: Admit inpatient status I initially spoke to Dr. Newman and he felt that she had declined surgery so was not going to be seeing her. I recontacted him and let him know she is ready to consider surgery. He will see her in the outpatient setting. This is not emergent. Give zosyn NPO x meds and ice chips daily labs. (2) Preop cardiovascular exam Conclusion/Plan: If there is surgery to be done, this would be an intraperitoneal surgery, this carries one point, class II risk on the revised cardiac index for preoperative risk. This leaves her with a 0.9% risk of major cardiac event. She has no valvular heart disease. No recent PR. No atrial fibrillation. No valvular heart disease. Kidneys and lungs are currently stable. (3) Chronic back pain Conclusion/Plan: With the addition of left lower quadrant abdominal pain gives her acute e xacerbation of chronic pain syndrome. She is currently getting morphine 2 mg every 2 hours as needed for pain. She is also getting antiemetics, and she is requesting Flexeril be resumed. Other than resuming Flexeril, no other change at this time. Add Toradol. Qualifiers: Back pain location: low back pain Back pain laterality: bilateral (4) Hypertension Conclusion/Plan: Continue medications while here with ice chips and water Qualifiers: Hypertension type: essential hypertension Qualified Code(s): I10 - Essential (primary) hypertension (5) Asthma Conclusion/Plan: Lung exam currently stable. No acute exacerbation. Resume albuterol as needed via nebulizer while here. Qualifiers: Asthma severity: mild Asthma persistence: intermittent Asthma complication type: uncomplicated Qualified Code(s): J45.20 - Mild intermittent asthma, uncomplicated - Lab Results Lab results reviewed: Yes Fish Bones: 08/20/18 04:35 08/20/18 04:35 Other Lab Results: Laboratory Tests 08/20/18 04:35 WBC 5.0 Hgb 12.7 Hct 38.0 Plt Count 235 Neut # (Auto) 3.5 Lymph # (Auto) 0.7 L - Diagnostic Imaging Results Diagnostic Imaging Results: positive: Final report reviewed Diagnostic Imaging Results Comments: EXAM DATE: 05/23/2018 11:13 PM. CLINICAL HISTORY: Left lower quadrant abdominal pian. COMPARISONS: ABDOMEN/PELVIS W/O 03/06/2018 6:07 AM ABDOMEN/PELVIS W/ 02/25/2018 2:10 PM ABDOMEN/PELVIS W/O 10/11/2017 9:33 AM. TECHNIQUE: Routine helical CT imaging was performed through the abdomen and pelvis. IV contrast: ISOVUE 300 100mL. Enteric contrast: No. Reconstructions: Coronal and sagittal. In accordance with CT protocol optimization, one or more of the following dose reduction techniques were utilized for this exam: automated exposure control, adjustment of mA and/or KV based on patient size, or use of iterative reconstructive technique. FINDINGS: Lung Bases: No significant findings. Liver: Normal. No masses. Gallbladder/Bile Ducts: Unremarkable. Spleen: Normal. Pancreas: Normal. Adrenal Glands: Normal. Kidneys: Normal. No masses or hydronephrosis. Peritoneal Cavity/Bowel: There is diverticulosis of the left colon. Mild inflammatory stranding seen around the proximal sigmoid colon. Again seen is a proximal to mid sigmoid colon fistula best seen on coronal series 5 image numbers [id number]. No abscess. No small bowel obstruction. No pneumoperitoneum. No evidence of appendicitis. Pelvic Organs: Normal. The bladder and visualized pelvic organs are within normal limits. Vasculature: No aneurysms or other significant abnormality. Bones: No significant abnormality. Other: None. IMPRESSION: 1. Mild residual or recurrent sigmoid colon diverticulitis. 2. 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 3. No evidence of abscess or bowel obstruction. EXAM: CT ABDOMEN AND PELVIS EXAM DATE: 07/27/2018 02:55 PM. CLINICAL HISTORY: IV only, left lower quadrant pain, probably diverticulitis. COMPARISONS: ABDOMEN/PELVIS W/ 05/23/2018 11:02 PM. TECHNIQUE: Routine helical CT imaging was performed through the abdomen and pelvis. IV contrast: ISOVUE 300 100mL. Enteric contrast: No. Reconstructions: Coronal and sagittal. In accordance with CT protocol optimization, one or more of the following dose reduction techniques were utilized for this exam: automated exposure control, adjustment of mA and/or KV based on patient size, or use of iterative reconstructive technique. FINDINGS: Lung Bases: Unremarkable. Liver: Normal. No masses. Gallbladder/Bile Ducts: Unremarkable. Spleen: Normal. Pancreas: Normal. Adrenal Glands: Normal. Kidneys: Normal. No masses or hydronephrosis. Peritoneal Cavity/Bowel: There is focal fat stranding and wall thickening of a segment of the sigmoid colon in the left hemipelvis surrounding a cluster of diverticuli consistent with diverticulitis without abscess formation. There is distortion of this portion of the sigmoid colon with soft tissue bands likely representing adhesions from prior bouts of inflammation. No free fluid, free air or adenopathy. No masses. Pelvic Organs: The bladder and visualized pelvic organs are within normal limits. Vasculature: No aneurysms or other significant abnormality. Bones: Postoperative lumbar spine with expected degenerative changes is essentially stable. No aggressive osseous lesions. Other: None. IMPRESSION: Diverticulitis without abscess formation. CT ABDOMEN AND PELVIS EXAM DATE: 08/18/2018 01:16 PM. CLINICAL HISTORY: Recent diagnosis of diverticulitis. Increasing abdominal pain. COMPARISONS: ABDOMEN/PELVIS W/ 07/27/2018 2:45 PM. TECHNIQUE: Routine helical CT imaging was performed through the abdomen and pelvis. IV contrast: 90 mL Optiray 320. Enteric contrast: No. Reconstructions: Coronal and sagittal. In accordance with CT protocol optimization, one or more of the following dose reduction techniques were utilized for this exam: automated exposure control, adjustment of mA and/or KV based on patient size, or use of iterative reconstructive technique. FINDINGS: Lung Bases: Unremarkable. Liver: Normal. No masses. Gallbladder/Bile Ducts: Unremarkable. Spleen: Normal. Pancreas: Normal. Adrenal Glands: Normal. Kidneys: Normal. No masses or hydronephrosis. Peritoneal Cavity/Bowel: No free air. Multiple diverticula off the colon. Very slight decrease in the small amount of edema surrounding the abnormal 8 cm in length proximal mid sigmoid colon. This colon wall remains moderately asymmetric thickened. No extraluminal air nor abscess. The more proximal colon small in caliber. Small bowel is of normal caliber. Slight decrease in the 4 x 3 cm more focal area of mesenteric edema involving the mid section, coronal image 41. Appendix not visualized but no inflammatory changes adjacent to the cecum. Pelvic Organs: Normal. The bladder and visualized pelvic organs are within normal limits. Vasculature: No aneurysms or other significant abnormality. Bones: No significant abnormality. Other: None. IMPRESSION: 1. Slight interval improvement of the abnormal 8 cm length proximal and mid sigmoid colon indicating limited response to therapy. 2. Stable, otherwise unremarkable exam. - EKG Results EKG Interpreted Independently: No Core Measures - Anticipated LOS I expect patient to be DC'd or transferred within 96 hours.: Yes - DVT/VTE - Prophylaxis VTE/DVT Device ordered at admit?: Yes
[2018-08-19] MEDS: ONDANSETRON ODT 4 MG TABLET TL PRN (17:02)
[2018-08-19] MEDS: SODIUM CHLORIDE FLUSH 0.9% 10 ML SYRINGE IVP SCH (17:58)
[2018-08-19] MEDS: KETOROLAC 30 MG/ML VIAL IVP PRN (19:58)
[2018-08-19] MEDS: SODIUM CHLORIDE FLUSH 0.9% 10 ML SYRINGE IVP PRN ×3 (19:58→22:46)
[2018-08-19] MEDS: CYCLOBENZAPRINE 10 MG TABLET PO PRN (19:58)
[2018-08-19] MEDS ORDERED: VENLAFAXINE ER 75 MG CAPSULE PO SCH (21:00)
[2018-08-20] MEDS: PIPERACILLIN/TAZOBACTAM 3.375 GM in SODIUM CHLORIDE 0.9% MINIBAG 100 ML IV SCH ×3 (00:22→11:33)
[2018-08-20] MEDS: ONDANSETRON ODT 4 MG TABLET TL PRN ×2 (00:23→06:11)
[2018-08-20] MEDS: SODIUM CHLORIDE FLUSH 0.9% 10 ML SYRINGE IVP SCH ×2 (00:40→09:41)
[2018-08-20] MEDS: MORPHINE 2 MG/ML CARPUJECT IVP PRN ×6 (00:54→11:32)
[2018-08-20] MEDS: KETOROLAC 30 MG/ML VIAL IVP PRN ×2 (01:54→08:52)
[2018-08-20] MEDS: SODIUM CHLORIDE FLUSH 0.9% 10 ML SYRINGE IVP PRN ×4 (01:55→07:31)
[2018-08-20 05:04] LABS: BASOPHILS # (AUTO) 0.1 10^3/uL (0.0-0.1); BASOPHILS % (AUTO) 1.5 %; CALCIUM 8.1 mg/dL (8.5-10.3); CREATININE 0.7 mg/dL (0.4-1.0); EOSINOPHILS # (AUTO) 0.3 10^3/uL (0.0-0.7); EOSINOPHILS % (AUTO) 5.7 %; HGB - HEMOGLOBIN 12.7 g/dL (12.0-16.0); LYMPHOCYTES # (AUTO) 0.7 10^3/uL (1.5-3.5); LYMPHOCYTES % (AUTO) 14.7 %; MEAN CORPUSCULAR HEMOGLOBIN 31.3 pg (27.0-31.0); MEAN CORPUSCULAR HGB CONC 33.3 g/dL (32.0-36.0); MEAN CORPUSCULAR VOLUME 93.8 fL (81.0-99.0); MEAN PLATELET VOLUME 7.2 fL (7.9-10.8); MONOCYTES # (AUTO) 0.4 10^3/uL (0.0-1.0); MONOCYTES % (AUTO) 8.3 %; NEUTROPHILS # (AUTO) 3.5 10^3/uL (1.5-6.6); NEUTROPHILS % (AUTO) 69.8 %; PLT - PLATELET COUNT 235 10^3/uL (130-450); RED BLOOD COUNT 4.05 10^6/uL (4.20-5.40); RED CELL DISTRIBUTION WIDTH 13.7 % (12.0-15.0)
[2018-08-20] MEDS: CYCLOBENZAPRINE 10 MG TABLET PO PRN (05:21)
[2018-08-20] MEDS ORDERED: THYROID 60 MG TABLET PO SCH (07:00)
[2018-08-20 07:39] VITALS: BP 130/91
[2018-08-20] MEDS: VENLAFAXINE ER 75 MG CAPSULE PO SCH (08:42)
[2018-08-20] MEDS: SODIUM CHLORIDE 0.9% 1,000 ML IV SCH (08:52)
[2018-08-20] MEDS: ONDANSETRON 4 MG/2 ML VIAL IVP PRN (08:52)
[2018-08-20] MEDS ORDERED: LISINOPRIL 5 MG TABLET PO SCH (09:00)
[2018-08-20] MEDS ORDERED: POLYETHYLENE GLYCOL 3350 17 GM PACKET PO SCH (09:00)
--- NOTE | 2018-08-20 11:10 | Discharge Plan ---
Discharge Plan Disposition: Home, Self Care Condition: Fair Prescriptions: Ondansetron Odt [Zofran Odt] 4 mg TL Q6HR PRN #60 tablet PRN Reason: Nausea / Vomiting Amox/Clav 500/125 [Augmentin] 1 each PO Q12H #14 tablet Ketorolac [Toradol] 10 mg PO Q6H #20 tablet oxyCODONE/ACET 5/325 [Percocet 5 mg/325 mg] 1 each PO Q4-6H #30 tablet Saccharomyces Boulardii [Florastor] 250 mg PO BID #28 capsule Diet: Soft Activity Restrictions: No Restrictions Shower Restrictions: No Driving Restrictions: No Additional Instructions or Follow Up instructions: You were admitted to the hospital because of left lower quadrant abdominal pain from diverticulitis. It was the second emergency room visit in 2 days. The pain is uncontrollable and really affecting your life. You have known diverticulitis and have had diverticulitis off and on for close to 2 years. [facility] were unable to schedule your surgery because of your job. You were admitted this time because the pain was uncontrollable. 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 Since being here overnight, you have had no vomiting. No diarrhea. You have been able to keep your liquid food down. There has been no fever. And your white cell count is normal. We feel you are stable enough to go home on antibiotics. You already have prescriptions from August 18. Please take the Augmentin and the Florastor that was prescribed that day until it is gone. Use the nausea medicine, zofrn, as needed. You have begged me for a short course of Percocet because you have absolutely no more opiates at home. This is a problem because you have been slowly tapered off all of your opiates from chronic back pain over the last 2 months, and your last dose was about 2 weeks ago. Your previous pain clinic will not see you. You have been frantically trying to get into a pain clinic and have been unsuccessful. I did speak to your primary care provider today, and her office is very firm that they will not be giving you more opiates. They feel that the 2 months they gave you medicine, and taper yourself off, and get into a new clinic were enough. You must establish yourself with a clinic/pain clinic that will be able to meet your needs. Please do not use the emergency room for chronic pain medicine needs. Please see Dr. Eris Newman in follow-up. You need to schedule your d iverticular surgery resection as soon as possible. Hopefully he will be able to get operated on in September. No Smoking: If you smoke, Please STOP! Call for help. Follow-up with: Kathleen Asher MD [Primary Care Provider] -
--- NOTE | 2018-08-22 02:12 | DISCHARGE SUMMARY ---
Physician: Verona Monsivais MD DATE OF ADMISSION: 08/19/2018 DATE OF DISCHARGE: 08/20/2018 DISCHARGE DIAGNOSES 1. Diverticulitis of large intestine without perforation or abscess, without bleeding. 2. Chronic back pain. 3. Hypertension. 4. Asthma. 5. Preoperative cardiovascular examination. DISCHARGE MEDICATIONS: 1. [facility] 2 puffs via inhalation every 4 hours 2. Flexeril 10 mg tablet, 1/2-1 tablet 3 times daily as needed 3. Hydrochlorothiazide 25 mg p.o. daily 4. Lisinopril 5 mg daily 5. [place] Thyroid 120 mg p.o. daily 6. Desyrel 200 mg p.o. nightly 7. Venlafaxine hydrochloride extended release 75 mg p.o. every afternoon 8. Venlafaxine hydrochloride extended release 150 mg p.o. every morning 9. Zofran 4 mg p.o. or sublingual every 6 hours as needed nausea, new prescription 10. Augmentin 500/125 mg tablet p.o. every 12 hours, new prescription 11. Toradol 10 mg p.o. every 6 hours as needed, #30 Nuprin prescription and 12. Percocet 5/325 1 tablet p.o. every 4 to 6 hours as needed left lower quadrant abdominal pain #30 13. Phenergan 25 mg p.o. every 6 hours as needed nausea 14. Florastor 250 mg p.o. twice daily for the next month PRINCIPAL PROCEDURES: None during this stay. The patient had a CT of the abdomen and pelvis done on 08/18/2018 with previous ER encounter. That CT scan shows slight interval improvement from CT scan July 2018 and May 2018. HOSPITAL COURSE: She is a 58-year-old female who has chronic pain syndrome. She was on long-acting and short-acting opiates for many years and was in a pain clinic. She has also had diverticulitis for close to two years. She has been advised to have colon resection for the diverticulitis and has not felt that it was what she wanted to do with regard to her disease management. This finally culminated in a complication of diverticulitis with an admission in February 2018. 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 She was placed on IV antibiotics and general surgery at that time wanted to medically manage her. Once her acute inflammatory phase was done, then surgery was planned. She was transferred to a [facility] facility, [facility]. She was there about 24 hours. When she was transferred there, she stated that she got there, and waited for IV antibiotics and her IV pain medicine, which they did not give to her. She ate a meal. She spent the night there, and the following morning when they still had not given her the IV pain medicine or her IV antibiotics, she felt that they were not adequately taking care of her and left AMA. She then drove down the 5 [address] to get to [facility] and was hospitalized at [facility]. They transitioned her to IV antibiotics at home and she went home with home [facility]. She has been seen in subsequent followup by both Dr. Gilmar Newman and Dr. Eris Newman, general surgery. She had a followup CAT scan in May 2018 and another one in July 2018. Both Dr. Betancourt have offered her surgical intervention in the form of colectomy, possible colostomy. At that point in time, the patient felt she was not ready to do the surgery because she needed "time off from work." She felt like she would lose her job. In the meantime, she was not able to keep her pain management clinic appointments and her pain management clinic provider began process of discharging her from the clinic. There seems to be some miscommunication about whether the patient was actually admitted to a [facility] facility or not and that there was a certain amount of opiates assigned to her at that [facility] facility, which they state she had access to and she denies. As such, the pain clinic felt that she violated her pain contract and discharged her from the clinic. We now have a patient who has chronic pain syndrome on chronic opioids, also having left lower quadrant abdominal pain in the midst of this surgical problem. She now returns to our emergency room on 08/18/2018. Again, left lower quadrant pain. No fever, no chills. Feeling that the pain flare up was unbearable. She had also been out of opiates for two weeks. Her primary care provider had tapered her over two months to get off of the long-acting and short-acting opiates. She had been without pain medicine from her primary care provider for approximately two weeks and Dr. Asher was very firm that she is not going to be giving this patient anymore medication for pain. This, because in their agreement, the patient was supposed to reestablish herself with a new pain clinic. The patient says that one is not allowed by her insurance plan, another plan only does intervention through lifestyle management. The patient is not interested in lifestyle management, she wants her opioid pills. The patient recognizes that she has probably been remiss in trying to push harder for getting established in a pain clinic, and is now looking as far as [place]. She is also contemplating going into the [facility] to be part of the [facility] pain management program, but has to have a PCP in the [facility]. In any case, she comes to our ER for left lower quadrant pain, pain management and antibiotics 08/04/18, 08/11/18. She is sent home. Returning 08/18/2018, she was again sent home. She now returns 08/19/2018, not having picked up her antibiotics, saying the pain was too unbearable and wanted to be operated on today. She was evaluated by Dr. Angel. She is afebrile, normotensive, normal white cell count. She has normal bowel sounds and she does have tenderness in her left lower quadrant abdomen with bowel sounds. The patient was initially thought to be an inpatient thinking that she was going to get operated on. However, general surgery made it clear that it is not an emergent surgery. She can be scheduled for surgery if she makes an appointment with Dr. Newman. Dr. Newman has already spoken to her at length, twice, and both times declined surgery. As such, the patient's status was changed to observation status. Overnight, she received IV antibiotics, she received morphine 2 mg every 2 hours as needed, and Toradol. She really felt like the Toradol helped. As such, the patient is now discharged. She will be sent home on five days of Toradol, five days of Percocet. She is to continue antibiotics in the form of Augmentin, also Florastor. We had a long talk about drug seeking behavior and our possibly incorrect/correct perception, noncompliance. She feels like she is a victim of the system, that nobody seems to understand that it is difficult to get into a pain clinic. She does not understand why the perception that she is giving to people is that of drug seeking. I did speak to Dr. Asher, who reiterated her contract with this patient and made the patient aware that she was supposed to find a pain clinic in the time span that Dr. Asher gave her with two months of opioids and she has not completed that task. I strongly encouraged her to get established with a pain clinic, keep an appointment with Dr. Newman, hopefully schedule surgery for September and go from there. PHYSICAL EXAMINATION VITAL SIGNS: Discharge temperature is 36.3, pulse is 82, blood pressure is 130/91, respirations 16, 99% on room air. GENERAL: Short-statured, moderately overweight middle-aged female who looks much older than stated age. NECK: Supple. LUNGS: Clear to auscultation and percussion and there is no respiratory distress. HEART: She has a regular rate and rhythm. No murmurs, rubs, or gallops. ABDOMEN: Soft. Tender only in the left lower quadrant. Some mild guarding, but no rebound and normal bowel sounds. She was eating a clear liquid diet and a regular diet while here without any difficulty. No bloody diarrhea. No diarrhea at all. EXTREMITIES: Warm. She has no clubbing, cyanosis or edema. Mobility is slightly impaired because of her low back pain. It is difficult for her to sit up in bed, to transfer position and then stand. I have asked her to follow up with Dr. Newman and Dr. Asher. Both of these providers have discussed the case with me. TD: 08/21/2018 11:59 MTDSarah
== END 2018-08-20 13:10 | disposition home or self-care (01) ==
LOC: ED 10:35 → INTOOBSV 10:58 → MS2 10:58
PROVIDERS: ADMIT Specialist; ATTEND Specialist
DX: K57.32 Diverticulitis of large intestine without perforation or abscess without bleeding (principal); T36.0X6A Underdosing of penicillins, initial encounter; Z91.138 Patient's unintentional underdosing of medication regimen for other reason; I10 Essential (primary) hypertension; J45.20 Mild intermittent asthma, uncomplicated; E03.9 Hypothyroidism, unspecified; G89.4 Chronic pain syndrome; Z79.899 Other long term (current) drug therapy; Z76.5 Malingerer [conscious simulation]; E66.01 Morbid (severe) obesity due to excess calories; Z68.31 Body mass index [BMI] 31.0-31.9, adult; M54.5 Low back pain
CPT/HCPCS: 36415; 80048; 85025; 96365; 96366; 96375; 96376; 99283; 99284; A9270; G0378; Q0162

== ENCOUNTER 2018-08-28 12:43 | Emergency (ER) | payer OTHER ==
[2018-08-28 15:34] VITALS: BP 168/114
[2018-08-28 15:56] LABS: BASOPHILS # (AUTO) 0.1 10^3/uL (0.0-0.1); BASOPHILS % (AUTO) 0.5 %; EOSINOPHILS # (AUTO) 0.4 10^3/uL (0.0-0.7); EOSINOPHILS % (AUTO) 3.4 %; HGB - HEMOGLOBIN 13.9 g/dL (12.0-16.0); LYMPHOCYTES # (AUTO) 4.4 10^3/uL (1.5-3.5); LYMPHOCYTES % (AUTO) 40.5 %; MEAN CORPUSCULAR HEMOGLOBIN 31.6 pg (27.0-31.0); MEAN CORPUSCULAR VOLUME 93.1 fL (81.0-99.0); MEAN PLATELET VOLUME 7.5 fL (7.9-10.8); MONOCYTES # (AUTO) 0.8 10^3/uL (0.0-1.0); MONOCYTES % (AUTO) 7.4 %; NEUTROPHILS # (AUTO) 5.2 10^3/uL (1.5-6.6); NEUTROPHILS % (AUTO) 48.2 %; PLT - PLATELET COUNT 343 10^3/uL (130-450); RED CELL DISTRIBUTION WIDTH 13.7 % (12.0-15.0); WHITE BLOOD COUNT 10.8 x10^3/uL (4.8-10.8)
[2018-08-28 16:11] LABS: ALBUMIN 4.3 g/dL (3.2-5.5); ALBUMIN/GLOBULIN RATIO 1.3 (1.0-2.2); BILIRUBIN,TOTAL 0.5 mg/dL (0.2-1.0); CALCIUM 9.9 mg/dL (8.5-10.3); CREATININE 0.8 mg/dL (0.4-1.0); TOTAL PROTEIN 7.5 g/dL (6.7-8.2)
== END 2018-08-28 16:20 | disposition left against medical advice (07) ==
LOC: ED 12:43
DX: R10.32 Left lower quadrant pain (principal); R11.2 Nausea with vomiting, unspecified; R19.7 Diarrhea, unspecified; Z53.21 Procedure and treatment not carried out due to patient leaving prior to being seen by health care provider
CPT/HCPCS: 36415; 80053; 83690; 85025

== ENCOUNTER 2018-09-18 04:13 | Emergency (ER) | payer OTHER ==
[2018-09-18] MEDS ORDERED: SODIUM CHLORIDE 0.9% 1,000 ML IV ONE (04:32)
--- NOTE | 2018-09-18 04:34 | ED Physician Documentation ---
PD HPI ABD PAIN - Stated complaint Stated Complaint: R/L SIDE PAIN,ABD PAIN - Chief complaint Chief Complaint: Abd Pain - History obtained from History obtained from: Patient - History of Present Illness Timing - onset: How many days ago (2) Timing - duration: Days Timing - details: Gradual onset Pain level max: 10 Pain level now: 10 Quality: Pain Location: LLQ Radiation: Lower back. No: Chest, , Left flank, Left shoulder, Right flank, Right shoulder, Upper back Improved by: Laying still Worsened by: Eating, Moving, Palpation Associated symptoms: Nausea, Vomiting. No: Fever, Diarrhea, Constipation Similar symptoms before: Diagnosis (diverticulitis) Recently seen: Emergency Dept, Admitted - Additional information Additional information: as with most previous visits, patient says to me Its my diverticulitis again. LLQ pain x 2 days with nausea, vomiting. she says she has not had any narcotic/opioid medications since August. She says she has no upcoming appointments. She says she called her PMD (Dr. Asher) and was instructed to come to the emergency department (this was yesterday, but patient says I tried to hold out and not come as long as I could. When I ask if she has called her surgeon, she says she will definitely be calling tomorrow! I ask again if she has recently contacted him, and she reiterates her certainty that she will call as soon as the offices open. I ask a third time if she followed the instructions given at time of discharge from [facility] last month to contact her surgeon to start making plans to surgically address this recurrent problem, and she says she doesnt think shes seen the surgeon since last summer. Patient is intermittently crying, repeatedly asks for something for the pain. [facility] ED visits last month: 08/11, 08/18, 08/19 (admit), and 08/28 (LWBS). Review of Systems Constitutional: reports: Reviewed and negative Cardiac: reports: Reviewed and negative Respiratory: reports: Reviewed and negative GI: reports: Abdominal Pain, Nausea, Vomiting. denies: Constipation, Diarrhea : denies: Dysuria, Frequency Musculoskeletal: reports: Back pain PD PAST MEDICAL HISTORY - Past Medical History Cardiovascular: Hypertension Respiratory: Asthma, Shortness of breath Neuro: Headaches, Motion sickness Endocrine/Autoimmune: HyPOthyroidism GI: Diverticulitis MEDICAL SCIENTIFIC OFFICER: Breast cancer : None HEENT: None Psych: Depression, Anxiety, ADD/ADHD Musculoskeletal: Osteoarthritis, Chronic back pain Derm: None - Past Surgical History Past Surgical History: Yes General: Appendectomy Ortho: Spine surgery /MEDICAL SCIENTIFIC OFFICER: Mastectomy - Present Medications Home Medications: Ambulatory Orders Medication Instructions Recorded Confirmed Venlafaxine HCl [Venlafaxine HCl 75 mg PO QPM 06/17/17 08/19/18 ER] hydroCHLOROthiazide 25 mg PO DAILY 08/10/17 08/19/18 [Hydrochlorothiazide] Albuterol Sulfate [Proair 2 puffs INH Q4H PRN 03/02/18 08/19/18 Respiclick] Thyroid,Pork [[place] Thyroid] 120 mg PO QDAC 03/02/18 08/19/18 Venlafaxine HCl [Venlafaxine HCl 150 mg PO DAILY 03/02/18 08/19/18 ER] traZODone [Desyrel] 200 mg PO HS PRN 03/02/18 08/19/18 Lisinopril 5 mg PO DAILY 07/27/18 08/19/18 Cyclobenzaprine [Flexeril] 5 - 10 mg PO TID PRN 08/19/18 08/19/18 Ketorolac [Toradol] 10 mg PO Q6H #20 tablet 08/20/18 Amox/Clav 875/125 [Augmentin] 1 tab PO Q12H #20 tablet 09/18/18 Ketorolac [Toradol] 10 mg PO Q6H PRN #20 tablet 09/18/18 Ondansetron Odt [Zofran] 4 mg TL Q6H PRN #14 tablet 09/18/18 - Allergies Allergies/Adverse Reactions: Allergies Allergy/AdvReac Type Severity Reaction Status Date / Time adhesive tape Allergy Rash Verified 09/18/18 04:32 latex Allergy Rash Verified 09/18/18 04:32 hydrocodone bitartrate * AdvReac Itching Verified 09/18/18 04:32 [From Vicodin] - Social History Does the pt smoke?: No Smoking Status: Never smoker Does the pt drink ETOH?: No Does the pt have substance abuse?: No - Immunizations Immunizations are current?: Yes - POLST Patient has POLST: No POLST Status: Full Code PD ED PE NORMAL - Vitals Vital signs reviewed: Yes - General General: Alert and oriented X 3, Well developed/nourished, Other (waxing and waning appearance of painful distress) - HEENT HEENT: Moist mucous membranes - Neck Neck: Supple, no meningeal sign - Cardiac Cardiac: No murmur - Respiratory Respiratory: No respiratory distress, Clear bilaterally - Derm Derm: Normal color, Warm and dry, No rash - Extremities Extremities: No edema PD ED PE EXPANDED - Cardiac Cardiac: Tachy, Regular Rhythm - Abdomen Abdomen: Tender to palpation, Generalized/diffuse (greatest in LLQ), Other (partial distractable component). No: Rebound, Guarding Results - Vitals Vitals: Oxygen O2 Source Room air - Labs Labs: Laboratory Tests 09/18/18 09/18/18 09/18/18 04:25 04:25 07:45 WBC 6.9 RBC 4.50 Hgb 14.1 Hct 41.8 MCV 92.9 MCH 31.4 H MCHC 33.8 RDW 13.5 Plt Count 310 MPV 8.0 Neut # (Auto) 3.1 Lymph # (Auto) 2.9 [place] # (Auto) 0.5 Eos # (Auto) 0.3 Baso # (Auto) 0.1 Absolute Nucleated RBC 0.01 Nucleated RBC % 0.1 Sodium 141 Potassium 3.4 L Chloride 112 H Carbon Dioxide 20 L Anion Gap 9.0 BUN 19 Creatinine 0.6 Estimated GFR (MDRD) 103 Glucose 97 Calcium 8.7 Total Bilirubin 0.5 AST 18 ALT 18 Alkaline Phosphatase 63 Total Protein 6.4 L Albumin 3.4 Globulin 3.0 Albumin/Globulin Ratio 1.1 Lipase 22 Urine Color YELLOW Urine Clarity CLEAR Urine pH 6.5 Ur Specific [place] 1.015 Urine Protein NEGATIVE Urine Glucose (UA) NEGATIVE Urine Ketones NEGATIVE Urine Occult Blood NEGATIVE Urine Nitrite NEGATIVE Urine Bilirubin NEGATIVE Urine Urobilinogen 0.2 (NORMAL) Ur Leukocyte Esterase NEGATIVE Ur Microscopic Review NOT INDICATED Urine Culture Comments NOT INDICATED PD MEDICAL DECISION MAKING - ED course Complexity details: reviewed old records, reviewed results, re-evaluated patient, considered differential, d/w patient ED course: Patient reported no relief with IV Ofirmev and Toradol. her blood work is unremarkable, as are her abdominal plain film x-rays. We had a long discussion about my concerns regarding her number of visits and the frequency of these visits which involve narcotic medications. She repeatedly insists I dont care what you give me, as long as it makes the pain go away. this makes for a very difficult situation, and I explained this to her. Specifically, that she very frequently has findings of Active diverticulitis on CAT scan, but this should not always required narcotic medications, yet she almost never reports any relief with any medications given to her that are not narcotics. On this visit, she is crying on reevaluation during this conversation. at this time, I feel the best course of action is to give her a dose of dilaudid with possible repeat dose x 1 if needed, and start antibiotics and then d/c, rather than perform another CT A/P (considering how many CTs she has had performed). she reported significant relief with the dilaudid. I strongly and repeatedly emphasized the critical importance of her calling the surgeon to arrange for immediate follow up, and to make that call THIS MORNING without fail. She promises she will do this without reservation. Departure - Departure Disposition: 01 Home, Self Care Clinical Impression: Abdominal pain Condition: Good Instructions: Abdominal Pain Follow-Up: Eris Newman MD [Provider Admit Priv/Credential] - (Call this morning to arrange for next available appointment) Prescriptions: Amox/Clav 875/125 [Augmentin] 1 tab PO Q12H #20 tablet Ketorolac [Toradol] 10 mg PO Q6H PRN #20 tablet PRN Reason: Pain Ondansetron Odt [Zofran] 4 mg TL Q6H PRN #14 tablet PRN Reason: Nausea / Vomiting Discharge Date/Time: 09/18/18 09:15
[2018-09-18 04:41] LABS: BASOPHILS # (AUTO) 0.1 10^3/uL (0.0-0.1); BASOPHILS % (AUTO) 1.8 %; EOSINOPHILS # (AUTO) 0.3 10^3/uL (0.0-0.7); EOSINOPHILS % (AUTO) 4.4 %; HGB - HEMOGLOBIN 14.1 g/dL (12.0-16.0); LYMPHOCYTES # (AUTO) 2.9 10^3/uL (1.5-3.5); LYMPHOCYTES % (AUTO) 41.9 %; MEAN CORPUSCULAR HEMOGLOBIN 31.4 pg (27.0-31.0); MEAN CORPUSCULAR HGB CONC 33.8 g/dL (32.0-36.0); MEAN CORPUSCULAR VOLUME 92.9 fL (81.0-99.0); MONOCYTES # (AUTO) 0.5 10^3/uL (0.0-1.0); MONOCYTES % (AUTO) 6.7 %; NEUTROPHILS # (AUTO) 3.1 10^3/uL (1.5-6.6); NEUTROPHILS % (AUTO) 45.2 %; PLT - PLATELET COUNT 310 10^3/uL (130-450); RED CELL DISTRIBUTION WIDTH 13.5 % (12.0-15.0); WHITE BLOOD COUNT 6.9 x10^3/uL (4.8-10.8)
[2018-09-18] MEDS ORDERED: KETOROLAC 60 MG/2 ML VIAL IVP STA (04:56)
[2018-09-18] MEDS ORDERED: ACETAMINOPHEN 1,000 MG/100 ML 100 ML IV STA (04:56)
[2018-09-18] MEDS ORDERED: ONDANSETRON 4 MG/2 ML VIAL IVP STA (04:56)
[2018-09-18 05:07] LABS: ALBUMIN 3.4 g/dL (3.2-5.5); ALBUMIN/GLOBULIN RATIO 1.1 (1.0-2.2); BILIRUBIN,TOTAL 0.5 mg/dL (0.2-1.0); CALCIUM 8.7 mg/dL (8.5-10.3); CREATININE 0.6 mg/dL (0.4-1.0); TOTAL PROTEIN 6.4 g/dL (6.7-8.2)
--- NOTE | 2018-09-18 05:40 | XRAY Report ---
Reason: abd. pain Procedure Date: 09/18/2018 Accession Number: [id number] / [id number] Procedure: XR - Abdomen Acute CPT Code: FULL RESULT: EXAM: ABDOMINAL SERIES AND PA CHEST EXAM DATE: 09/18/2018 05:30 AM. CLINICAL HISTORY: Abd. pain. COMPARISON: CHEST 2 VIEW PA/LAT 04/14/2016 1:44 PM. TECHNIQUE: 2 views abdomen and 1 view chest. FINDINGS: CHEST: Lungs/Pleura: No focal opacities. No effusion or pneumothorax. Mediastinum: Within exam limitations, cardiomediastinal contour is normal. ABDOMEN: Bowel Gas Pattern: Within normal limits. No dilated loops or abnormal fluid levels. Free Air: None. Other: There has been previous instrumentation with bilateral pedicle screws and bridging rods from T10-L4. There has been prior fusion at the L4-L5 level. IMPRESSION: None specific acute abdominal series. [facility]
[2018-09-18] MEDS ORDERED: PROMETHAZINE INJ 25 MG in SODIUM CHLORIDE 0.9% 50 ML IV STA (06:22)
[2018-09-18] MEDS ORDERED: HYDROmorphone 1 MG/ML CARPUJECT IVP STA (06:22)
[2018-09-18 08:01] LABS: BILIRUBIN,URINE NEGATIVE (NEGATIVE); GLUCOSE, URINE (UA) NEGATIVE (NEGATIVE); KETONES,URINE (UA) NEGATIVE (NEGATIVE); LEUKOCYTE ESTERASE, URINE NEGATIVE (NEGATIVE); NITRITE,URINE NEGATIVE (NEGATIVE); OCCULT BLOOD,URINE NEGATIVE (NEGATIVE); PH,URINE 6.5 PH (5.0-7.5); PROTEIN,URINE NEGATIVE (NEGATIVE); UROBILINOGEN,URINE 0.2 (NORMAL) E.U./dL (NORMAL)
[2018-09-18 08:06] LABS: CLARITY,URINE CLEAR (CLEAR)
[2018-09-18] MEDS ORDERED: HYDROmorphone 2 MG/ML VIAL IVP STA (08:13)
[2018-09-18] MEDS ORDERED: AMPICILLIN/SULBACTAM 3 GM in SODIUM CHLORIDE 0.9% MINIBAG 100 ML IV STA (08:14)
[2018-09-18 08:58] VITALS: BP 143/92
== END 2018-09-18 09:15 | disposition home or self-care (01) ==
LOC: ED 04:13
DX: R10.30 Lower abdominal pain, unspecified (principal); I10 Essential (primary) hypertension; E03.9 Hypothyroidism, unspecified; Z85.3 Personal history of malignant neoplasm of breast; Z90.10 Acquired absence of unspecified breast and nipple
CPT/HCPCS: 36415; 74022; 80053; 81003; 83690; 85025; 96365; 96367; 96375; 96376; 99284; J0131; J1170; J7040; 81001; 87086

== ENCOUNTER 2018-09-30 21:24 | Emergency (ER) | payer OTHER ==
--- NOTE | 2018-09-30 21:50 | ED Physician Documentation ---
History of Present Illness - Stated complaint Stated Complaint: CHEST PAIN - Chief complaint Chief Complaint: Cardiac - History obtained from History obtained from: Patient - History of Present Illness Timing: Today Pain level max: 9 Pain level now: 9 - Additonal information Additional information: 58 year old female with L sided sharp abd pain radiating to the back since 299. Also sharp R sided chest pain tonight, constant. nothing makes it better. worse with movement. States this feels like her typical diverticulitis. She states nothing makes the abd pain better or worse. States her BP is higher than normal, but is consistent with her prior ED visits for same. Review of Systems Constitutional: denies: Fever, Chills Throat: denies: Sore throat Cardiac: denies: Palpitations Respiratory: denies: Dyspnea, Cough GI: reports: Abdominal Pain, Nausea. 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 : None HEENT: None Psych: Depression, Anxiety, ADD/ADHD Musculoskeletal: Osteoarthritis, Chronic back pain Derm: None - Past Surgical History Past Surgical History: Yes General: Appendectomy Ortho: Spine surgery /AUTOMATIC TIRE TESTER: Mastectomy - Present Medications Home Medications: Ambulatory Orders Medication Instructions Recorded Confirmed Venlafaxine HCl [Venlafaxine HCl 75 mg PO QPM 06/17/17 08/19/18 ER] hydroCHLOROthiazide 25 mg PO DAILY 08/10/17 08/19/18 [Hydrochlorothiazide] Albuterol Sulfate [Proair 2 puffs INH Q4H PRN 03/02/18 08/19/18 Respiclick] Thyroid,Pork [[place] Thyroid] 120 mg PO QDAC 03/02/18 08/19/18 Venlafaxine HCl [Venlafaxine HCl 150 mg PO DAILY 03/02/18 08/19/18 ER] traZODone [Desyrel] 200 mg PO HS PRN 03/02/18 08/19/18 Lisinopril 5 mg PO DAILY 07/27/18 08/19/18 Cyclobenzaprine [Flexeril] 5 - 10 mg PO TID PRN 08/19/18 08/19/18 Ketorolac [Toradol] 10 mg PO Q6H #20 tablet 08/20/18 Amox/Clav 875/125 [Augmentin] 1 tab PO Q12H #20 tablet 09/18/18 Ketorolac [Toradol] 10 mg PO Q6H PRN #20 tablet 09/18/18 Ondansetron Odt [Zofran] 4 mg TL Q6H PRN #14 tablet 09/18/18 Amox/Clav 875/125 [Augmentin] 1 tab PO Q12H #28 tablet 09/30/18 Ondansetron Odt [Zofran] 4 mg TL Q6H PRN #10 tablet 09/30/18 Oxycodone HCl/Acetaminophen 1 - 2 each PO Q6H PRN #14 tablet 09/30/18 [Percocet 5-325 mg Tablet] - Allergies Allergies/Adverse Reactions: Allergies Allergy/AdvReac Type Severity Reaction Status Date / Time adhesive tape Allergy Rash Verified 09/18/18 04:32 latex Allergy Rash Verified 09/18/18 04:32 hydrocodone bitartrate * AdvReac Itching Verified 09/18/18 04:32 [From Vicodin] - Social History Does the pt smoke?: No Smoking Status: Never smoker Does the pt drink ETOH?: No Does the pt have substance abuse?: No - Immunizations Immunizations are current?: Yes - POLST Patient has POLST: No POLST Status: Full Code PD ED PE NORMAL - Vitals Vital signs reviewed: Yes - General General: Alert and oriented X 3, No acute distress, Well developed/nourished - HEENT HEENT: PERRL, Ears normal, Moist mucous membranes, Pharynx benign - Neck Neck: Supple, no meningeal sign - Cardiac Cardiac: RRR, Strong equal pulses - Respiratory Respiratory: No respiratory distress, Clear bilaterally - Abdomen Abdomen: Normal bowel sounds, Soft, Non distended, Other (TTP over the L side of the abdomen. 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, No motor deficit, No sensory deficit, Normal speech - Psych Psych: Normal mood, Normal affect Results - Vitals Vitals: Vital Signs - 24 hr 09/30/18 09/30/18 09/30/18 21:28 22:00 23:58 Temperature 36.0 C L Heart Rate 84 85 82 Respiratory 18 12 16 Rate Blood Pressure 164/99 H 164/98 H 135/93 H O2 Saturation 97 98 96 Oxygen O2 Source Room air - EKG (time done) 2130 Rate: Rate (enter#) (77) Rhythm: NSR [place]: Normal Intervals: Normal [place] QRS: LVH Ischemia: Normal ST segments - Labs Labs: Laboratory Tests 09/30/18 09/30/18 09/30/18 22:00 22:00 22:00 WBC 7.4 RBC 4.21 Hgb 13.3 Hct 40.3 MCV 95.6 MCH 31.5 H MCHC 32.9 RDW 13.2 Plt Count [employer] MPV 8.7 Neut # (Auto) 4.6 Lymph # (Auto) 1.7 [place] # (Auto) 0.6 Eos # (Auto) 0.3 Baso # (Auto) 0.1 Absolute Nucleated RBC 0.00 Nucleated RBC % 0.0 Manual Slide Review Indicated Sodium 135 Potassium 3.5 Chloride 100 L Carbon Dioxide 24 Anion Gap 11.0 BUN 8 Creatinine 0.7 Estimated GFR (MDRD) 86 L Glucose 89 Calcium 10.0 Total Bilirubin 0.6 AST 21 ALT 20 Alkaline Phosphatase 66 Troponin I < 0.04 Total Protein 7.1 Albumin 3.7 Globulin 3.4 Albumin/Globulin Ratio 1.1 Lipase 18 L - Rads (name of study) cxr Radiology: Prelim report reviewed, EMP read contemporaneously, See rad report (No acute cardiopulmonary abnormality) PD MEDICAL DECISION MAKING - ED course Complexity details: reviewed old records, reviewed results, re-evaluated patient, considered differential, d/w patient ED course: 58-year-old female presents to the emergency department with atypical chest pain today. No evidence of acute coronary syndrome, aortic dissection, aortic aneurysm or pulmonary embolus. No evidence of pneumothorax or tension pneumothorax. Feels better after GI cocktail. Also appears to have a recurrence of her usual chronic diverticulitis. We did discuss a CT scan, but given her relatively benign abdominal exam coupled with her normal white count and lack of a fever, she is elected to not undergo a CT tonight and instead will follow-up closely with her PCP or return here if she fails to improve as expected with the antibiotics. Pain well controlled. Patient counseled regarding signs and symptoms for which I believe and urgent re-evaluation would be necessary. Patient with good understanding of and agreement to plan and is comfortable going home at this time This document was made in part using voice recognition software. While efforts are made to proofread this document, sound alike and grammatical errors may occur. Departure - Departure Disposition: Home, Self Care Clinical Impression: Diverticulitis Chest pain Qualifiers: Chest pain type: unspecified Qualified Code(s): R07.9 - Chest pain, unspecified Abdominal pain Qualifiers: Abdominal location: left lower quadrant Qualified Code(s): R10.32 - Left lower quadrant pain Condition: Good Instructions: ED Chest Pain Atypical Unkn Cause, ED Diverticulitis Follow-Up: Kathleen Asher MD [Primary Care Provider] - Within 3 Days Prescriptions: Amox/Clav 875/125 [Augmentin] 1 tab PO Q12H #28 tablet Ondansetron Odt [Zofran] 4 mg TL Q6H PRN #10 tablet PRN Reason: Nausea / Vomiting Oxycodone HCl/Acetaminophen [Percocet 5-325 mg Tablet] 1 - 2 each PO Q6H PRN #14 tablet PRN Reason: pain Comments: Take all antibiotics as prescribed at home. Follow-up with your doctor for further evaluation and care. You should improve over the next 24-48 hours. If you are continuing to have significant symptoms are worsening, return for evaluation. Do not drink alcohol or drive while on narcotic pain medicine. Note that many narcotic pain relievers also contain tylenol/acetaminophen. Please ensure that your total dose of acetaminophen from all sources does not exceed 3 grams (3000mg) per day. You may constipated on this medication, take a stool softener such as "Colace" twice a day while you are on it. Also recommend a nqik-mxi-vodibow laxative such as senna or MiraLAX any day that you do not have a bowel movement. If you received narcotic pain medication in the emergency department, do not drive or operate machinery for the next 24 hours. Discharge Date/Time: 10/01/18 00:03
[2018-09-30 22:13] LABS: BASOPHILS # (AUTO) 0.1 10^3/uL (0.0-0.1); BASOPHILS % (AUTO) 1.2 %; EOSINOPHILS # (AUTO) 0.3 10^3/uL (0.0-0.7); EOSINOPHILS % (AUTO) 3.5 %; HGB - HEMOGLOBIN 13.3 g/dL (12.0-16.0); LYMPHOCYTES # (AUTO) 1.7 10^3/uL (1.5-3.5); LYMPHOCYTES % (AUTO) 23.7 %; MEAN CORPUSCULAR HEMOGLOBIN 31.5 pg (27.0-31.0); MEAN CORPUSCULAR HGB CONC 32.9 g/dL (32.0-36.0); MEAN CORPUSCULAR VOLUME 95.6 fL (81.0-99.0); MEAN PLATELET VOLUME 8.7 fL (7.9-10.8); MONOCYTES # (AUTO) 0.6 10^3/uL (0.0-1.0); MONOCYTES % (AUTO) 8.5 %; NEUTROPHILS # (AUTO) 4.6 10^3/uL (1.5-6.6); NEUTROPHILS % (AUTO) 63.1 %; RED BLOOD COUNT 4.21 10^6/uL (4.20-5.40); RED CELL DISTRIBUTION WIDTH 13.2 % (12.0-15.0); WHITE BLOOD COUNT 7.4 x10^3/uL (4.8-10.8)
[2018-09-30 22:22] LABS: ALBUMIN 3.7 g/dL (3.2-5.5); ALBUMIN/GLOBULIN RATIO 1.1 (1.0-2.2); BILIRUBIN,TOTAL 0.6 mg/dL (0.2-1.0); CREATININE 0.7 mg/dL (0.4-1.0); TOTAL PROTEIN 7.1 g/dL (6.7-8.2)
--- NOTE | 2018-09-30 22:22 | XRAY Report ---
Reason: Chest Pain Procedure Date: 09/30/2018 Accession Number: [id number] / [id number] Procedure: XR - Chest 1 View X-Ray CPT Code: 40424 FULL RESULT: EXAM: CHEST RADIOGRAPHY EXAM DATE: 09/30/2018 09:56 PM. CLINICAL HISTORY: Chest pain and shortness of breath. Dizziness. COMPARISON: ABDOMEN ACUTE 09/18/2018 5:07 AM. TECHNIQUE: 1 view. FINDINGS: Lungs/Pleura: No focal opacities evident. No pleural effusion. No pneumothorax. Mediastinum: Within exam limitations, the cardiomediastinal contour is normal. Tortuous aorta. Other: Stable mild dextroscoliosis and thoracolumbar fusion. IMPRESSION: Normal heart size and clear lungs. RADIA
[2018-09-30] MEDS: ONDANSETRON ODT 4 MG TABLET TL STA (22:29)
[2018-09-30] MEDS: HYDROmorphone 1 MG/ML CARPUJECT IVP STA (22:29)
[2018-09-30] MEDS: AMPICILLIN/SULBACTAM 3 GM in SODIUM CHLORIDE 0.9% MINIBAG 100 ML IV STA (22:37)
[2018-09-30] MEDS: MAG HYDROX/AL HYDROX/SIMETH 30 ML UDC PO STA (23:05)
[2018-09-30] MEDS: SUCRALFATE 1 GM/10 ML UDC PO STA (23:05)
[2018-09-30] MEDS: KETOROLAC 30 MG/ML VIAL IVP STA (23:05)
[2018-09-30] MEDS: LIDOCAINE VISCOUS 2% 15 ML UDC MM STA (23:07)
[2018-09-30] MEDS: FAMOTIDINE 20 MG TABLET PO STA (23:07)
[2018-09-30] MEDS: oxyCODONE 5 MG TABLET PO STA (23:54)
[2018-09-30] MEDS: MORPHINE 2 MG/ML CARPUJECT IVP STA (23:55)
[2018-10-01] VITALS: BP 135/93
== END 2018-10-01 00:03 | disposition home or self-care (01) ==
LOC: ED 21:24
DX: K57.92 Diverticulitis of intestine, part unspecified, without perforation or abscess without bleeding (principal); R07.9 Chest pain, unspecified; R94.31 Abnormal electrocardiogram [ECG] [EKG]; I10 Essential (primary) hypertension; E03.9 Hypothyroidism, unspecified; Z85.3 Personal history of malignant neoplasm of breast; Z90.10 Acquired absence of unspecified breast and nipple
CPT/HCPCS: 36415; 71045; 80053; 83690; 84484; 85025; 93005; 96365; 96375; 99283; 99284

== ENCOUNTER 2018-10-11 06:31 | Emergency (ER) | payer OTHER ==
--- NOTE | 2018-10-11 06:55 | ED Physician Documentation ---
PD HPI ABD PAIN - Stated complaint Stated Complaint: ABD PX - Chief complaint Chief Complaint: Abd Pain - History obtained from History obtained from: Patient - History of Present Illness Timing - onset: How many days ago (has had recurrent abd pain the past few days, had not resolved fully from 2 weeks ago when seen and Rx for diverticulitis with Augmentin. Has had few episodes of this recurrently.) Timing - duration: Days (few) Timing - details: Gradual onset, Waxing and waning Quality: Cramping, Aching, Pain Location: Suprapubic, LLQ Radiation: Lower back Improved by: No: Eating, BM Worsened by: Moving, Palpation. No: Eating Associated symptoms: No: Fever, Nausea, Vomiting, Diarrhea Similar symptoms before: Diagnosis (feeling like prior diverticulitis.) Recently seen: Emergency Dept (2 weeks ago for same and about 2 months prior to that) Review of Systems Constitutional: denies: Fever, Chills Nose: denies: Rhinorrhea / runny nose, Congestion Throat: denies: Sore throat Respiratory: denies: Cough GI: reports: Abdominal Pain. 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 : None HEENT: None Psych: Depression, Anxiety, ADD/ADHD Musculoskeletal: Osteoarthritis, Chronic back pain Derm: None - Past Surgical History Past Surgical History: Yes General: Appendectomy Ortho: Spine surgery /SUPERVISOR SLATE SPLITTING: Mastectomy - Present Medications Home Medications: Ambulatory Orders Medication Instructions Recorded Confirmed Venlafaxine HCl [Venlafaxine HCl 75 mg PO QPM 06/17/17 08/19/18 ER] hydroCHLOROthiazide 25 mg PO DAILY 08/10/17 08/19/18 [Hydrochlorothiazide] Albuterol Sulfate [Proair 2 puffs INH Q4H PRN 03/02/18 08/19/18 Respiclick] Thyroid,Pork [[place] Thyroid] 120 mg PO QDAC 03/02/18 08/19/18 Venlafaxine HCl [Venlafaxine HCl 150 mg PO DAILY 03/02/18 08/19/18 ER] traZODone [Desyrel] 200 mg PO HS PRN 03/02/18 08/19/18 Lisinopril 5 mg PO DAILY 07/27/18 08/19/18 Cyclobenzaprine [Flexeril] 5 - 10 mg PO TID PRN 08/19/18 08/19/18 Ketorolac [Toradol] 10 mg PO Q6H #20 tablet 08/20/18 Amox/Clav 875/125 [Augmentin] 1 tab PO Q12H #20 tablet 09/18/18 Ketorolac [Toradol] 10 mg PO Q6H PRN #20 tablet 09/18/18 Ondansetron Odt [Zofran] 4 mg TL Q6H PRN #14 tablet 09/18/18 Amox/Clav 875/125 [Augmentin] 1 tab PO Q12H #28 tablet 09/30/18 Ondansetron Odt [Zofran] 4 mg TL Q6H PRN #10 tablet 09/30/18 Oxycodone HCl/Acetaminophen 1 - 2 each PO Q6H PRN #14 tablet 09/30/18 [Percocet 5-325 mg Tablet] Cephalexin [Keflex] 500 mg PO TID #21 capsule 10/11/18 Metronidazole [Flagyl] 500 mg PO BID #20 tablet 10/11/18 Naproxen 375 mg PO BID #20 tablet 10/11/18 Oxycodone HCl/Acetaminophen 1 - 2 each PO Q6H PRN #20 tablet 10/11/18 [Percocet 5-325 mg Tablet] - Allergies Allergies/Adverse Reactions: Allergies Allergy/AdvReac Type Severity Reaction Status Date / Time adhesive tape Allergy Rash Verified 09/18/18 04:32 latex Allergy Rash Verified 09/18/18 04:32 hydrocodone bitartrate * AdvReac Itching Verified 09/18/18 04:32 [From Vicodin] - Social History Does the pt smoke?: No Smoking Status: Never smoker Does the pt drink ETOH?: No Does the pt have substance abuse?: No - Immunizations Immunizations are current?: Yes - POLST Patient has POLST: No POLST Status: Full Code PD ED PE NORMAL - Vitals Vital signs reviewed: Yes - General General: Alert and oriented X 3, Well developed/nourished, Other (appears in pain) - HEENT HEENT: Pharynx benign - Neck Neck: Supple, no meningeal sign, No adenopathy - Cardiac Cardiac: RRR, No murmur - Respiratory Respiratory: Clear bilaterally - Abdomen Abdomen: Normal bowel sounds, Soft, Non distended, No organomegaly, Other (tender mid to LLQ abdomen with some local guarding but no percussion nor rebound tenderness. ) - Female Female : Deferred - Rectal Rectal: Deferred - Derm Derm: Normal color, Warm and dry Results - Vitals Vitals: Vital Signs - 24 hr 10/11/18 10/11/18 10/11/18 06:37 09:23 10:54 Temperature 36.3 C L 36.8 C Heart Rate 113 H 96 66 Respiratory 20 13 14 Rate Blood Pressure 148/122 H 135/85 H 136/87 H O2 Saturation 98 96 98 Oxygen O2 Source Room air - Labs Labs: Laboratory Tests 10/11/18 10/11/18 10/11/18 06:57 06:57 08:10 WBC 9.7 RBC 4.64 Hgb 14.7 Hct 42.3 MCV 91.2 MCH 31.6 H MCHC 34.7 RDW 13.3 Plt Count 357 MPV 7.5 L Neut # (Auto) 5.9 Lymph # (Auto) 2.7 [place] # (Auto) 0.6 Eos # (Auto) 0.4 Baso # (Auto) 0.1 Absolute Nucleated RBC 0.00 Nucleated RBC % 0.0 Sodium 138 Potassium 3.2 L Chloride 104 Carbon Dioxide 23 Anion Gap 11.0 BUN 17 Creatinine 0.7 Estimated GFR (MDRD) 86 L Glucose 120 H Calcium 9.6 Total Bilirubin 0.6 AST 23 ALT 24 Alkaline Phosphatase 85 Total Protein 8.1 Albumin 4.2 Globulin 3.9 Albumin/Globulin Ratio 1.1 Lipase 20 L Urine Color YELLOW Urine Clarity CLEAR Urine pH 6.0 Ur Specific [place] 1.025 Urine Protein NEGATIVE Urine Glucose (UA) NEGATIVE Urine Ketones NEGATIVE Urine Occult Blood NEGATIVE Urine Nitrite NEGATIVE Urine Bilirubin NEGATIVE Urine Urobilinogen 0.2 (NORMAL) Ur Leukocyte Esterase NEGATIVE Ur Microscopic Review NOT INDICATED Urine Culture Comments NOT INDICATED - Rads (name of study) abd CT Radiology: Prelim report reviewed (sigmoid inflammation. No abscess nor perforation. Possible fistula formation.), See rad report PD MEDICAL DECISION MAKING - ED course Complexity details: re-evaluated patient (repeat pain meds, as she does have true disease, but also she needs to accept the treatment course of needing surgery for the persistent/recurrent infections.), considered differential (seems c/w recurrent diverticulitis without general peritoneal findings. discussed CT eval or not, and shared decision to treat empirically. ), d/w patient Departure - Departure Disposition: 01 Home, Self Care Clinical Impression: Sigmoid diverticulitis Condition: Stable Record reviewed to determine appropriate education?: Yes Instructions: ED Diverticulitis Follow-Up: Kathleen Asher MD [Primary Care Provider] - Reagan Landaverde MD [Provider Admit Priv/Credential] - Prescriptions: Cephalexin [Keflex] 500 mg PO TID #21 capsule Metronidazole [Flagyl] 500 mg PO BID #20 tablet Naproxen 375 mg PO BID #20 tablet Oxycodone HCl/Acetaminophen [Percocet 5-325 mg Tablet] 1 - 2 each PO Q6H PRN #20 tablet PRN Reason: pain Comments: Drink lots of fluids. Consider daily stool softener such as docusate. Naproxen twice daily for inflammation. Add Tylenol or Percocet if needed for pain. Use the 2 antibiotics cephalexin and metronidazole as directed. Follow-up with surgery, call for an appointment as this will likely be a recurring episode and you probably need to have a small segment of the colon removed that keeps getting infected. Discharge Date/Time: 10/11/18 10:55
[2018-10-11 07:03] LABS: BASOPHILS # (AUTO) 0.1 10^3/uL (0.0-0.1); BASOPHILS % (AUTO) 1.4 %; EOSINOPHILS # (AUTO) 0.4 10^3/uL (0.0-0.7); EOSINOPHILS % (AUTO) 3.7 %; HGB - HEMOGLOBIN 14.7 g/dL (12.0-16.0); LYMPHOCYTES # (AUTO) 2.7 10^3/uL (1.5-3.5); LYMPHOCYTES % (AUTO) 27.6 %; MEAN CORPUSCULAR HEMOGLOBIN 31.6 pg (27.0-31.0); MEAN CORPUSCULAR HGB CONC 34.7 g/dL (32.0-36.0); MEAN CORPUSCULAR VOLUME 91.2 fL (81.0-99.0); MEAN PLATELET VOLUME 7.5 fL (7.9-10.8); MONOCYTES # (AUTO) 0.6 10^3/uL (0.0-1.0); MONOCYTES % (AUTO) 6.2 %; NEUTROPHILS # (AUTO) 5.9 10^3/uL (1.5-6.6); NEUTROPHILS % (AUTO) 61.1 %; PLT - PLATELET COUNT 357 10^3/uL (130-450); RED BLOOD COUNT 4.64 10^6/uL (4.20-5.40); RED CELL DISTRIBUTION WIDTH 13.3 % (12.0-15.0); WHITE BLOOD COUNT 9.7 x10^3/uL (4.8-10.8)
[2018-10-11] MEDS ORDERED: HYDROmorphone 1 MG/ML CARPUJECT IVP STA ×3 (07:05→10:13)
[2018-10-11] MEDS ORDERED: ONDANSETRON 4 MG/2 ML VIAL IVP STA (07:06)
[2018-10-11] MEDS ORDERED: metroNIDAZOLE 500 MG/100 ML 500 MG/100 ML BAG IV ONE (07:06)
[2018-10-11] MEDS ORDERED: KETOROLAC 30 MG/ML VIAL IVP STA (07:06)
[2018-10-11] MEDS ORDERED: cefTRIAXone 1 GM VIAL IVP STA (07:06)
[2018-10-11] MEDS ORDERED: SODIUM CHLORIDE 0.9% 1,000 ML IV ONE (07:06)
[2018-10-11 07:19] LABS: ALBUMIN 4.2 g/dL (3.2-5.5); ALBUMIN/GLOBULIN RATIO 1.1 (1.0-2.2); BILIRUBIN,TOTAL 0.6 mg/dL (0.2-1.0); CALCIUM 9.6 mg/dL (8.5-10.3); CREATININE 0.7 mg/dL (0.4-1.0); TOTAL PROTEIN 8.1 g/dL (6.7-8.2)
[2018-10-11 08:20] LABS: BILIRUBIN,URINE NEGATIVE (NEGATIVE); GLUCOSE, URINE (UA) NEGATIVE (NEGATIVE); KETONES,URINE (UA) NEGATIVE (NEGATIVE); LEUKOCYTE ESTERASE, URINE NEGATIVE (NEGATIVE); NITRITE,URINE NEGATIVE (NEGATIVE); OCCULT BLOOD,URINE NEGATIVE (NEGATIVE); PROTEIN,URINE NEGATIVE (NEGATIVE); UROBILINOGEN,URINE 0.2 (NORMAL) E.U./dL (NORMAL)
[2018-10-11 08:21] LABS: CLARITY,URINE CLEAR (CLEAR)
[2018-10-11] MEDS ORDERED: IOVERSOL 320 100 ML VIAL IVP ONE ×2 (08:21→10:02)
--- NOTE | 2018-10-11 09:32 | CT Report ---
Reason: recurrent diverticulitis symptoms Procedure Date: 10/11/2018 Accession Number: [id number] / [id number] Procedure: CT - Abdomen/Pelvis W/ CPT Code: FULL RESULT: EXAM: CT ABDOMEN AND PELVIS EXAM DATE: 10/11/2018 08:38 AM. CLINICAL HISTORY: Recurrent diverticulitis symptoms. COMPARISONS: ABDOMEN/PELVIS W/ 08/18/2018 1:01 PM. TECHNIQUE: Routine helical CT imaging was performed through the abdomen and pelvis. IV contrast: 100 cc Optiray 320. Enteric contrast: No. Reconstructions: Coronal and sagittal. In accordance with CT protocol optimization, one or more of the following dose reduction techniques were utilized for this exam: automated exposure control, adjustment of mA and/or KV based on patient size, or use of iterative reconstructive technique. FINDINGS: Lung Bases: Unremarkable. Liver: Normal. No masses. Gallbladder/Bile Ducts: Unremarkable. Spleen: Normal. Pancreas: Normal. Adrenal Glands: Normal. Kidneys: Normal. No masses or hydronephrosis. Peritoneal Cavity/Bowel: No free air or free fluid. 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 Mild wall thickening involving a segment of proximal to mid sigmoid colon, appears slightly decreased from prior. Pelvic Organs: Urinary bladder decompressed, unremarkable. Uterus and adnexal structures are unremarkable. Vasculature: No aneurysms or other significant abnormality. Bones: No acute fracture or suspicious bony lesion. Thoracolumbar spinal fusion. Scoliosis. Other: None. IMPRESSION: 1. 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 2. Other findings as noted above. RADIA
[2018-10-11 10:55] VITALS: BP 136/87
== END 2018-10-11 10:55 | disposition home or self-care (01) ==
LOC: ED 06:31
DX: K57.32 Diverticulitis of large intestine without perforation or abscess without bleeding (principal); I10 Essential (primary) hypertension
CPT/HCPCS: 36415; 74177; 80053; 81003; 83690; 85025; 96365; 96375; 96376; 99283; 99284; J1170; Q9967; 81001; 87086

== ENCOUNTER 2018-10-27 07:49 | Emergency (ER) | payer OTHER ==
--- NOTE | 2018-10-27 08:46 | ED Physician Documentation ---
PD HPI ABD PAIN - Stated complaint Stated Complaint: NAUSEA/ABD PX - Chief complaint Chief Complaint: Abd Pain - History obtained from History obtained from: Patient - History of Present Illness Timing - onset: How many days ago (33) Timing - duration: Days Timing - details: Gradual onset, Still present Quality: Sharp, Pain Location: LLQ Radiation: Lower back Improved by: Laying still Worsened by: Moving, Position, Palpation Associated symptoms: Nausea, Vomiting, Diarrhea Similar symptoms before: Diagnosis (diverticulitis with fistula) Recently seen: Emergency Dept - Additional information Additional information: 58-year-old female with a history of recurrent diverticulitis has had 17 visits to the emergency department in the past calendar year with 3 admissions. She has had 9 CTs of the abdomen pelvis demonstrating diverticular disease with colocolonic fistula. She has had a recent course of antibiotic with both Keflex and Flagyl her symptoms improved several days after discontinuing her antibiotic she is developed symptoms again. She has diarrhea and vomiting associated with this as well as the pain and she has not had fever. She has been reluctant to do surgery as she is attempting to accumulate enough sick time at work to recover from the surgery. Review of Systems Constitutional: denies: Fever Eyes: denies: Decreased vision Ears: denies: Ear pain Nose: reports: Congestion. denies: Rhinorrhea / runny nose Throat: denies: Dental pain / toothache Cardiac: denies: Chest pain / pressure, Palpitations, Pedal edema, Calf pain Respiratory: denies: Dyspnea, Cough GI: reports: Abdominal Pain, Nausea, Vomiting, Diarrhea : denies: Dysuria, Frequency Skin: denies: Rash Musculoskeletal: reports: Back pain. 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 : None HEENT: None Psych: Depression, Anxiety, ADD/ADHD Musculoskeletal: Osteoarthritis, Chronic back pain Derm: None - Past Surgical History Past Surgical History: Yes General: Appendectomy Ortho: Spine surgery /UNCLAIMED PROPERTY MANAGER: Mastectomy - Present Medications Home Medications: Ambulatory Orders Medication Instructions Recorded Confirmed Venlafaxine HCl [Venlafaxine HCl 75 mg PO QPM 06/17/17 08/19/18 ER] hydroCHLOROthiazide 25 mg PO DAILY 08/10/17 08/19/18 [Hydrochlorothiazide] Albuterol Sulfate [Proair 2 puffs INH Q4H PRN 03/02/18 08/19/18 Respiclick] Thyroid,Pork [[place] Thyroid] 120 mg PO QDAC 03/02/18 08/19/18 Venlafaxine HCl [Venlafaxine HCl 150 mg PO DAILY 03/02/18 08/19/18 ER] traZODone [Desyrel] 200 mg PO HS PRN 03/02/18 08/19/18 Lisinopril 5 mg PO DAILY 07/27/18 08/19/18 Cyclobenzaprine [Flexeril] 5 - 10 mg PO TID PRN 08/19/18 08/19/18 Ondansetron Odt [Zofran] 4 mg TL Q6H PRN #10 tablet 09/30/18 Naproxen 375 mg PO BID #20 tablet 10/11/18 Oxycodone HCl/Acetaminophen 1 - 2 each PO Q6H PRN #14 tablet 10/27/18 [Percocet 5-325 mg Tablet] - Allergies Allergies/Adverse Reactions: Allergies Allergy/AdvReac Type Severity Reaction Status Date / Time adhesive tape Allergy Rash Verified 10/27/18 08:00 latex Allergy Rash Verified 10/27/18 08:00 hydrocodone bitartrate * AdvReac Itching Verified 10/27/18 08:00 [From Vicodin] - Social History Does the pt smoke?: No Smoking Status: Never smoker Does the pt drink ETOH?: No Does the pt have substance abuse?: No - Immunizations Immunizations are current?: Yes - POLST Patient has POLST: No POLST Status: Full Code PD ED PE NORMAL - General General: Alert and oriented X 3, Well developed/nourished, Other (appears dry and in pain ) - HEENT HEENT: Atraumatic, PERRL, EOMI, Other (dry mucous membranes ) - Neck Neck: Supple, no meningeal sign, No bony TTP - Cardiac Cardiac: RRR, No murmur - Respiratory Respiratory: No respiratory distress, Clear bilaterally - Abdomen Abdomen: Soft, Other (general tenderness with increased LLQ tenderness) - Back Back: No CVA TTP, No spinal TTP - Derm Derm: Normal color, Warm and dry, No rash - Extremities Extremities: No deformity, No edema - Neuro Neuro: Alert and oriented X 3, auto glass technician 2-12 intact, No motor deficit, No sensory deficit, Normal speech Eye Opening: Spontaneous Motor: Obeys Commands Verbal: Oriented GCS Score: 15 - Psych Psych: Normal mood, Normal affect Results - Vitals Vitals: Vital Signs - 24 hr 10/27/18 10/27/18 10/27/18 07:58 08:40 10:15 Temperature 36.5 C Heart Rate 100 88 78 Respiratory 18 15 18 Rate Blood Pressure 181/109 H 170/99 H 140/89 H O2 Saturation 99 98 10/27/18 10/27/18 10:59 12:16 Temperature Heart Rate 84 87 Respiratory 16 18 Rate Blood Pressure 160/90 H 183/107 H O2 Saturation 98 Oxygen O2 Source Room air - Labs Labs: Laboratory Tests 10/27/18 10/27/18 10/27/18 09:27 09:27 09:27 WBC 5.8 RBC 4.46 Hgb 14.0 Hct 42.2 MCV 94.4 MCH 31.4 H MCHC 33.2 RDW 12.8 Plt Count 266 MPV 8.0 Neut # (Auto) 3.3 Lymph # (Auto) 1.9 [place] # (Auto) 0.4 Eos # (Auto) 0.2 Baso # (Auto) 0.1 Absolute Nucleated RBC 0.00 Nucleated RBC % 0.1 Sodium 135 Potassium 3.8 Chloride 103 Carbon Dioxide 23 Anion Gap 9.0 BUN 9 Creatinine 0.6 Estimated GFR (MDRD) 103 Glucose 85 Lactic Acid Calcium 8.7 Total Bilirubin 0.4 AST 24 ALT 24 Alkaline Phosphatase 90 Troponin I < 0.04 Total Protein 6.9 Albumin 3.7 Globulin 3.2 Albumin/Globulin Ratio 1.2 Lipase 21 L 10/27/18 09:27 WBC RBC Hgb Hct MCV MCH MCHC RDW Plt Count MPV Neut # (Auto) Lymph # (Auto) [place] # (Auto) Eos # (Auto) Baso # (Auto) Absolute Nucleated RBC Nucleated RBC % Sodium Potassium Chloride Carbon Dioxide Anion Gap BUN Creatinine Estimated GFR (MDRD) Glucose Lactic Acid 1.1 Calcium Total Bilirubin AST ALT Alkaline Phosphatase Troponin I Total Protein Albumin Globulin Albumin/Globulin Ratio Lipase Procedures - IVC sono (time) 0830 Bedside IVC sono: IVC measures (cm) (1.09), IVC collapsed c insp (cm) (complete), Dehydration (est 1-2 liter deficit) PD MEDICAL DECISION MAKING - ED course Complexity details: reviewed results, re-evaluated patient, considered differential, d/w patient ED course: 58-year-old female with a long history of diverticulitis with 17 visits to the ED in the last year 3 admissions a number of CAT scans scoping and consultation with surgeons. The patient has resisted surgery and she has been trying to accumulate sick time to do this as an elective surgery. Her case is reviewed with Dr. Brandt and today her CAT scan does not demonstrate the acute inflammatory findings or free fluid or abscess. 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 The patient received pain medication in the emergency department and request to go home. She will follow-up with Dr. Brandt to attempt to schedule this as an outpatient. Departure - Departure Disposition: 01 Home, Self Care Clinical Impression: Abdominal pain, left lower quadrant Condition: Stable Instructions: ED Diverticulitis, ED Diverticulosis Follow-Up: Kathleen Asher MD [Primary Care Provider] - José Miguel Brandt MD [Provider Admit Priv/Credential] - Prescriptions: Oxycodone HCl/Acetaminophen [Percocet 5-325 mg Tablet] 1 - 2 each PO Q6H PRN #14 tablet PRN Reason: pain Discharge Date/Time: 10/27/18 13:44
[2018-10-27] MEDS ORDERED: IOVERSOL 320 100 ML VIAL IVP ONE ×2 (09:23→11:32)
[2018-10-27 09:35] LABS: BASOPHILS # (AUTO) 0.1 10^3/uL (0.0-0.1); BASOPHILS % (AUTO) 1.4 %; EOSINOPHILS # (AUTO) 0.2 10^3/uL (0.0-0.7); EOSINOPHILS % (AUTO) 2.6 %; LYMPHOCYTES # (AUTO) 1.9 10^3/uL (1.5-3.5); LYMPHOCYTES % (AUTO) 32.1 %; MEAN CORPUSCULAR HEMOGLOBIN 31.4 pg (27.0-31.0); MEAN CORPUSCULAR HGB CONC 33.2 g/dL (32.0-36.0); MEAN CORPUSCULAR VOLUME 94.4 fL (81.0-99.0); MONOCYTES # (AUTO) 0.4 10^3/uL (0.0-1.0); MONOCYTES % (AUTO) 6.7 %; NEUTROPHILS # (AUTO) 3.3 10^3/uL (1.5-6.6); NEUTROPHILS % (AUTO) 57.2 %; PLT - PLATELET COUNT 266 10^3/uL (130-450); RED BLOOD COUNT 4.46 10^6/uL (4.20-5.40); RED CELL DISTRIBUTION WIDTH 12.8 % (12.0-15.0); WHITE BLOOD COUNT 5.8 x10^3/uL (4.8-10.8)
[2018-10-27 09:50] LABS: ALBUMIN 3.7 g/dL (3.2-5.5); ALBUMIN/GLOBULIN RATIO 1.2 (1.0-2.2); BILIRUBIN,TOTAL 0.4 mg/dL (0.2-1.0); CALCIUM 8.7 mg/dL (8.5-10.3); CREATININE 0.6 mg/dL (0.4-1.0); TOTAL PROTEIN 6.9 g/dL (6.7-8.2)
[2018-10-27] MEDS ORDERED: ONDANSETRON 4 MG/2 ML VIAL IVP STA (10:42)
[2018-10-27] MEDS ORDERED: HYDROmorphone 1 MG/ML CARPUJECT IVP STA ×3 (10:42→12:02)
[2018-10-27] MEDS ORDERED: ONDANSETRON 4 MG/2 ML VIAL ONE (10:47)
[2018-10-27] MEDS ORDERED: HYDROmorphone 1 MG/ML CARPUJECT ONE (10:47)
--- NOTE | 2018-10-27 11:41 | CT Report ---
Reason: LLQ pain Procedure Date: 10/27/2018 Accession Number: [id number] / [id number] Procedure: CT - Abdomen/Pelvis W CPT Code: FULL RESULT: EXAM: CT ABDOMEN AND PELVIS EXAM DATE: 10/27/2018 11:10 AM. CLINICAL HISTORY: Left lower quadrant pain. COMPARISONS: Abdomen/pelvis w/ 10/11/2018 8:36 AM. Abdomen/pelvis w/ 02/25/2018 2:10 PM. TECHNIQUE: Routine helical CT imaging was performed through the abdomen and pelvis. IV contrast: Opti 320 100 mL. Enteric contrast: No. Reconstructions: Coronal and sagittal. In accordance with CT protocol optimization, one or more of the following dose reduction techniques were utilized for this exam: automated exposure control, adjustment of mA and/or KV based on patient size, or use of iterative reconstructive technique. FINDINGS: Lung Bases: Unremarkable. Liver: Low-attenuation with questionable focal fatty sparing in the gallbladder fossa. Gallbladder/Bile Ducts: Unremarkable. Spleen: Normal. Pancreas: Normal. Adrenal Glands: Normal. Kidneys: Normal. No masses or hydronephrosis. Peritoneal Cavity/Bowel: There is diverticulosis of the rectosigmoid colon with tethering of segments of portions of the deep pelvic rectosigmoid colon to itself in a configuration suggestive of prior inflammation. Fistulization of the adjacent colonic segments to each other is not excluded. There is overall prominence of the nearby colonic vascular arcade and mild wall thickening surrounding the diverticulum at the center of the tethering/architectural distortion image 46 series 5 and image 55 series 3. No free air, significant free fluid or bowel obstruction. Pelvic Organs: Bladder appears unremarkable. There is no pelvic lymphadenopathy. Vasculature: No aneurysms or other significant abnormality. Bones: Posterior spinal fusion hardware is partially imaged in an overall unchanged configuration compared to 02/25/2018. Other: None. IMPRESSION: Sequela of inflammation in the distal rectosigmoid colon likely due to chronic diverticulitis in a configuration that raises the question of tethering possibly with colocolonic fistula. No definite evidence of active acute diverticulitis. [facility] The call report notification system was initiated by Dr. Nestor Sumner at 11:39 AM on 10/27/2018. The above call report findings were discussed with Reagan Ramos by Dr. Nestor Sumner at 11:45 AM on 10/27/2018.
[2018-10-27 12:16] VITALS: BP 183/107
== END 2018-10-27 13:44 | disposition home or self-care (01) ==
LOC: ED 07:49
DX: R10.32 Left lower quadrant pain (principal); R11.2 Nausea with vomiting, unspecified; R19.7 Diarrhea, unspecified; E86.0 Dehydration; K57.30 Diverticulosis of large intestine without perforation or abscess without bleeding; K63.2 Fistula of intestine; Z87.19 Personal history of other diseases of the digestive system; I10 Essential (primary) hypertension
CPT/HCPCS: 36415; 74177; 80053; 83605; 83690; 84484; 85025; 87040; 96374; 96376; 99283; J1170; Q9967

== ENCOUNTER 2018-11-21 05:07 | Emergency (ER) | payer OTHER ==
[2018-11-21 05:18] VITALS: BP 137/109
[2018-11-21] MEDS ORDERED: SODIUM CHLORIDE 0.9% 1,000 ML IV ONE (06:05)
[2018-11-21] MEDS ORDERED: HYDROmorphone 1 MG/ML CARPUJECT IVP STA ×2 (06:07→07:43)
[2018-11-21] MEDS ORDERED: ONDANSETRON 4 MG/2 ML VIAL IVP STA (06:07)
--- NOTE | 2018-11-21 06:10 | ED Physician Documentation ---
PD HPI ABD PAIN - Stated complaint Stated Complaint: ABD PX - Chief complaint Chief Complaint: Abd Pain - History obtained from History obtained from: Patient - History of Present Illness Timing - onset: Yesterday Timing - duration: Days (2) Timing - details: Gradual onset, Still present Quality: Sharp, Pain Location: LLQ Radiation: Lower back Improved by: Laying still Worsened by: Moving, Position, Palpation Associated symptoms: Nausea, Vomiting Similar symptoms before: Diagnosis (diverticulitis with colonocolonic fistula.) Recently seen: Emergency Dept - Additional information Additional information: 58-year-old female with a history of diverticulitis and a colonic colonic fistula has developed abdominal pain again with nausea and vomiting. She has had similar episodes numerous times and was most recently in the emergency department on 27 October 2018. At that time CT scan revealed the colonic c olonic fistula without acute inflammation. She was treated with pain medication at that time and antibiotics were not required. She is followed up with surgery and her primary care doctor requested she do acupuncture prior to attempting surgery. The patient was not impressed with the outcome of the acupuncture. Review of Systems Constitutional: reports: Fatigue. denies: Fever, Chills Eyes: denies: Decreased vision Ears: denies: Ear pain Nose: denies: Rhinorrhea / runny nose, Congestion Throat: denies: Sore throat Cardiac: denies: Chest pain / pressure, Palpitations Respiratory: denies: Dyspnea, Cough GI: reports: Abdominal Pain, Nausea, Vomiting : denies: Dysuria, Frequency Skin: denies: Rash Musculoskeletal: denies: Neck pain, Back pain, Extremity pain PD PAST MEDICAL HISTORY - Past Medical History Cardiovascular: Hypertension Respiratory: Asthma, Shortness of breath Neuro: Headaches, Motion sickness Endocrine/Autoimmune: HyPOthyroidism GI: Diverticulitis 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 : None HEENT: None Psych: Depression, Anxiety, ADD/ADHD Musculoskeletal: Osteoarthritis, Chronic back pain Derm: None - Past Surgical History Past Surgical History: Yes General: Appendectomy Ortho: Spine surgery /PLATEN PRESS OPERATOR: Mastectomy - Present Medications Home Medications: Ambulatory Orders Medication Instructions Recorded Confirmed Venlafaxine HCl [Venlafaxine HCl 75 mg PO QPM 06/17/17 08/19/18 ER] hydroCHLOROthiazide 25 mg PO DAILY 08/10/17 08/19/18 [Hydrochlorothiazide] Albuterol Sulfate [Proair 2 puffs INH Q4H PRN 03/02/18 08/19/18 Respiclick] Thyroid,Pork [[place] Thyroid] 120 mg PO QDAC 03/02/18 08/19/18 Venlafaxine HCl [Venlafaxine HCl 150 mg PO DAILY 03/02/18 08/19/18 ER] traZODone [Desyrel] 200 mg PO HS PRN 03/02/18 08/19/18 Lisinopril 5 mg PO DAILY 07/27/18 08/19/18 Cyclobenzaprine [Flexeril] 5 - 10 mg PO TID PRN 08/19/18 08/19/18 Ondansetron Odt [Zofran] 4 mg TL Q6H PRN #10 tablet 09/30/18 Naproxen 375 mg PO BID #20 tablet 10/11/18 Oxycodone HCl/Acetaminophen 1 - 2 each PO Q6H PRN #14 tablet 10/27/18 [Percocet 5-325 mg Tablet] Oxycodone HCl/Acetaminophen 1 - 2 each PO Q6H PRN #20 tablet 11/21/18 [Percocet 5-325 mg Tablet] - Allergies Allergies/Adverse Reactions: Allergies Allergy/AdvReac Type Severity Reaction Status Date / Time adhesive tape Allergy Rash Verified 10/27/18 08:00 latex Allergy Rash Verified 10/27/18 08:00 hydrocodone bitartrate * AdvReac Itching Verified 10/27/18 08:00 [From Vicodin] - Social History Does the pt smoke?: No Smoking Status: Never smoker Does the pt drink ETOH?: No Does the pt have substance abuse?: No - Immunizations Immunizations are current?: Yes - POLST Patient has POLST: No POLST Status: Full Code PD ED PE NORMAL - Vitals Vital signs reviewed: Yes - General General: Alert and oriented X 3, Well developed/nourished, Other (appears to be in pain and moves slowly ) - HEENT HEENT: Atraumatic, PERRL, EOMI - Neck Neck: Supple, no meningeal sign - Cardiac Cardiac: RRR, No murmur - Respiratory Respiratory: No respiratory distress, Clear bilaterally - Abdomen Abdomen: Soft, Other (LLQ tenderness is most obvious. There is general tenderness without guarding or rebound. ) - Back Back: No CVA TTP, No spinal TTP - Derm Derm: Normal color, Warm and dry, No rash - Extremities Extremities: No deformity, No edema - Neuro Neuro: Alert and oriented X 3, implementation coordinator 2-12 intact, No motor deficit, No sensory deficit, Normal speech Eye Opening: Spontaneous Motor: Obeys Commands Verbal: Oriented GCS Score: 15 - Psych Psych: Normal mood, Normal affect Results - Vitals Vitals: Vital Signs - 24 hr 11/21/18 05:15 Temperature 36.8 C Heart Rate 91 Respiratory 18 Rate Blood Pressure 137/109 H O2 Saturation 97 Oxygen O2 Source Room air - Labs Labs: Laboratory Tests 11/21/18 11/21/18 07:05 07:05 WBC 7.1 RBC 4.29 Hgb 13.8 Hct 39.2 MCV 91.2 MCH 32.0 H MCHC 35.1 RDW 13.1 Plt Count 273 MPV 7.7 L Neut # (Auto) 3.8 Lymph # (Auto) 2.3 [place] # (Auto) 0.6 Eos # (Auto) 0.3 Baso # (Auto) 0.2 H Absolute Nucleated RBC 0.01 Nucleated RBC % 0.1 Sodium 139 Potassium 4.0 Chloride 107 Carbon Dioxide 23 Anion Gap 9.0 BUN 19 Creatinine 0.6 Estimated GFR (MDRD) 103 Glucose 117 H Calcium 9.4 Total Bilirubin 0.6 AST 26 ALT 30 Alkaline Phosphatase 74 Total Protein 7.4 Albumin 4.0 Globulin 3.4 Albumin/Globulin Ratio 1.2 Lipase 22 PD MEDICAL DECISION MAKING - ED course Complexity details: reviewed results, re-evaluated patient, considered differential, d/w patient ED course: 58-year-old female with a history of colocolonic fistula and intermittent episodes of pain associated with this has a pain crisis today. Today we did not do CT exam of the abdomen pelvis her white blood cell count is normal she responded well to administration of pain medication and we will send her home with pain medication. She will follow-up with the surgeon. Departure - Departure Disposition: 01 Home, Self Care Clinical Impression: Abdominal pain, left lower quadrant Condition: Stable Instructions: ED Diverticulitis, ED Diverticulosis Follow-Up: Kathleen Asher MD [Primary Care Provider] - Prescriptions: Oxycodone HCl/Acetaminophen [Percocet 5-325 mg Tablet] 1 - 2 each PO Q6H PRN #20 tablet PRN Reason: pain
[2018-11-21 07:15] LABS: BASOPHILS # (AUTO) 0.2 10^3/uL (0.0-0.1); BASOPHILS % (AUTO) 2.3 %; EOSINOPHILS # (AUTO) 0.3 10^3/uL (0.0-0.7); EOSINOPHILS % (AUTO) 3.8 %; HGB - HEMOGLOBIN 13.8 g/dL (12.0-16.0); LYMPHOCYTES # (AUTO) 2.3 10^3/uL (1.5-3.5); LYMPHOCYTES % (AUTO) 32.1 %; MEAN CORPUSCULAR HGB CONC 35.1 g/dL (32.0-36.0); MEAN CORPUSCULAR VOLUME 91.2 fL (81.0-99.0); MEAN PLATELET VOLUME 7.7 fL (7.9-10.8); MONOCYTES # (AUTO) 0.6 10^3/uL (0.0-1.0); MONOCYTES % (AUTO) 7.8 %; NEUTROPHILS # (AUTO) 3.8 10^3/uL (1.5-6.6); PLT - PLATELET COUNT 273 10^3/uL (130-450); RED BLOOD COUNT 4.29 10^6/uL (4.20-5.40); RED CELL DISTRIBUTION WIDTH 13.1 % (12.0-15.0); WHITE BLOOD COUNT 7.1 x10^3/uL (4.8-10.8)
[2018-11-21 07:27] LABS: ALBUMIN/GLOBULIN RATIO 1.2 (1.0-2.2); BILIRUBIN,TOTAL 0.6 mg/dL (0.2-1.0); CALCIUM 9.4 mg/dL (8.5-10.3); CREATININE 0.6 mg/dL (0.4-1.0); TOTAL PROTEIN 7.4 g/dL (6.7-8.2)
== END 2018-11-21 08:05 | disposition home or self-care (01) ==
LOC: ED 05:07
DX: R10.32 Left lower quadrant pain (principal); K63.2 Fistula of intestine; I10 Essential (primary) hypertension
CPT/HCPCS: 36415; 80053; 83690; 85025; 87040; 96374; 96376; 99283; J1170; 83605

== ENCOUNTER 2018-11-24 04:33 | Emergency (ER) | payer OTHER ==
--- NOTE | 2018-11-24 04:36 | ED Physician Documentation ---
PD HPI ABD PAIN - Stated complaint Stated Complaint: ABD/BK PX - History obtained from History obtained from: Patient - History of Present Illness Timing - onset: How many days ago (several) Timing - duration: Days (She has had recurrent abdominal pain in the left lower to suprapubic area for many months due to diverticulitis with fistula. She has been reluctant to get surgery and has been seen by Dr. Eris Newman about it. The recommendation is surgical resection of the involved area. She has had similar cysts pains that she has had in the past again the last several days. She was seen here couple of days ago with pain medications. She was discharged with anti-inflammatories. She states the pain has not decreased.) Timing - details: Gradual onset, Still present, Waxing and waning Quality: Cramping, Aching, Pain Location: Suprapubic, LLQ Improved by: Position. No: Eating Worsened by: Moving, Palpation. No: Eating Associated symptoms: Nausea. No: Fever, Vomiting, Diarrhea, Constipation, Hematochezia Similar symptoms before: Diagnosis (Recurrent/chronic diverticulitis with local fistula formation) Recently seen: Emergency Dept (2 days ago and about monthly prior for the past 5-6 months.) Review of Systems Constitutional: denies: Fever, Chills, Myalgias Nose: denies: Rhinorrhea / runny nose, Congestion Throat: denies: Sore throat Respiratory: denies: Cough GI: reports: Abdominal Pain, Nausea. denies: Vomiting, Constipation, Diarrhea, Bloody / black stool : denies: Dysuria, Frequency Skin: denies: Rash, Lesions Neurologic: reports: Generalized weakness. 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 HEENT: None Psych: Depression, Anxiety, ADD/ADHD Musculoskeletal: Osteoarthritis, Chronic back pain Derm: None - Past Surgical History Past Surgical History: Yes General: Appendectomy Ortho: Spine surgery /RODEO PERFORMER: Mastectomy - Present Medications Home Medications: Ambulatory Orders Medication Instructions Recorded Confirmed Venlafaxine HCl [Venlafaxine HCl 75 mg PO QPM 06/17/17 08/19/18 ER] hydroCHLOROthiazide 25 mg PO DAILY 08/10/17 08/19/18 [Hydrochlorothiazide] Albuterol Sulfate [Proair 2 puffs INH Q4H PRN 03/02/18 08/19/18 Respiclick] Thyroid,Pork [[place] Thyroid] 120 mg PO QDAC 03/02/18 08/19/18 Venlafaxine HCl [Venlafaxine HCl 150 mg PO DAILY 03/02/18 08/19/18 ER] traZODone [Desyrel] 200 mg PO HS PRN 03/02/18 08/19/18 Lisinopril 5 mg PO DAILY 07/27/18 08/19/18 Cyclobenzaprine [Flexeril] 5 - 10 mg PO TID PRN 08/19/18 08/19/18 Ondansetron Odt [Zofran] 4 mg TL Q6H PRN #10 tablet 09/30/18 Naproxen 375 mg PO BID #20 tablet 10/11/18 Oxycodone HCl/Acetaminophen 1 - 2 each PO Q6H PRN #14 tablet 10/27/18 [Percocet 5-325 mg Tablet] Oxycodone HCl/Acetaminophen 1 - 2 each PO Q6H PRN #20 tablet 11/21/18 [Percocet 5-325 mg Tablet] Cephalexin [Keflex] 500 mg PO TID #21 capsule 11/24/18 Metronidazole [Flagyl] 500 mg PO BID #14 tablet 11/24/18 Oxycodone HCl/Acetaminophen 1 each PO Q6H PRN #20 tablet 11/24/18 [Percocet 5-325 mg Tablet] - Allergies Allergies/Adverse Reactions: Allergies Allergy/AdvReac Type Severity Reaction Status Date / Time adhesive tape Allergy Rash Verified 11/24/18 04:40 latex Allergy Rash Verified 11/24/18 04:40 gabapentin AdvReac Hallucinati Verified 11/24/18 04:40 ons hydrocodone bitartrate * AdvReac Itching Verified 11/24/18 04:40 [From Vicodin] - Social History Does the pt smoke?: No Smoking Status: Never smoker Does the pt drink ETOH?: No Does the pt have substance abuse?: No - Immunizations Immunizations are current?: Yes - POLST Patient has POLST: No POLST Status: Full Code PD ED PE NORMAL - Vitals Vital signs reviewed: Yes - General General: Alert and oriented X 3, Well developed/nourished, Other (appears uncomfortable) - Neck Neck: Supple, no meningeal sign, No adenopathy - Cardiac Cardiac: RRR, No murmur - Respiratory Respiratory: Clear bilaterally - Abdomen Abdomen: Normal bowel sounds, Soft, Non distended, No organomegaly, Other (tender LLQ and suprapubic area with local percussion tenderness, but no referred nor rebound tenderness. Similar to prior epiosdes here. ) - Female Female : Deferred - Rectal Rectal: Deferred - Back Back: No CVA TTP - Derm Derm: Normal color, Warm and dry - Neuro Neuro: Alert and oriented X 3, No motor deficit, Normal speech Results - Vitals Vitals: Vital Signs - 24 hr 11/24/18 04:36 Temperature 36.8 C Heart Rate 95 Respiratory 17 Rate Blood Pressure 154/100 H O2 Saturation 97 Oxygen O2 Source Room air PD MEDICAL DECISION MAKING - ED course Complexity details: reviewed old records, considered differential (chronic recurrent diverticulitis with fistula. Does not have acute peritoneal signs. I did not see need for repeated imaging. ), d/w patient Departure - Departure Disposition: Home, Self Care Clinical Impression: Sigmoid diverticulitis Condition: Stable Record reviewed to determine appropriate education?: Yes Instructions: ED Diverticulitis Follow-Up: Kathleen Asher MD [Primary Care Provider] - Eris Newman MD [Provider Admit Priv/Credential] - Prescriptions: Cephalexin [Keflex] 500 mg PO TID #21 capsule Metronidazole [Flagyl] 500 mg PO BID #14 tablet Oxycodone HCl/Acetaminophen [Percocet 5-325 mg Tablet] 1 each PO Q6H PRN #20 tablet PRN Reason: pain Comments: Stay well-hydrated. Use Keflex and metronidazole antibiotics as directed. Some anti-inflammatories such as ibuprofen or naproxen twice daily. Add Percocet pain medicine if needed. Follow-up with surgery as the real answer for this level of the chronic diverticulitis you have his surgery and he really would be in your best treatment to follow through with that finally.
[2018-11-24] MEDS ORDERED: ONDANSETRON 4 MG/2 ML VIAL IVP STA (04:50)
[2018-11-24] MEDS ORDERED: metroNIDAZOLE 500 MG/100 ML 500 MG/100 ML BAG IV ONE (04:50)
[2018-11-24] MEDS ORDERED: SODIUM CHLORIDE 0.9% 1,000 ML IV ONE (04:50)
[2018-11-24] MEDS ORDERED: HYDROmorphone 1 MG/ML CARPUJECT IVP STA ×3 (04:50→05:58)
[2018-11-24] MEDS ORDERED: KETOROLAC 15 MG/ML VIAL IVP STA (05:38)
[2018-11-24] MEDS ORDERED: cephALEXin 250 MG CAPSULE PO STA (05:58)
[2018-11-24 06:33] VITALS: BP 154/97
== END 2018-11-24 06:42 | disposition home or self-care (01) ==
LOC: ED 04:33
DX: K57.32 Diverticulitis of large intestine without perforation or abscess without bleeding (principal); I10 Essential (primary) hypertension
CPT/HCPCS: 96365; 96375; 96376; 99283; 99284; A9270; J1170

== ENCOUNTER 2018-11-29 15:55 | Emergency (ER) | payer OTHER ==
[2018-11-29 16:21] LABS: BASOPHILS % (AUTO) 0.3 %; EOSINOPHILS # (AUTO) 0.2 10^3/uL (0.0-0.7); EOSINOPHILS % (AUTO) 2.2 %; HGB - HEMOGLOBIN 13.9 g/dL (12.0-16.0); LYMPHOCYTES # (AUTO) 2.8 10^3/uL (1.5-3.5); LYMPHOCYTES % (AUTO) 28.3 %; MEAN CORPUSCULAR HEMOGLOBIN 31.3 pg (27.0-31.0); MEAN CORPUSCULAR HGB CONC 33.8 g/dL (32.0-36.0); MEAN CORPUSCULAR VOLUME 92.6 fL (81.0-99.0); MEAN PLATELET VOLUME 7.6 fL (7.9-10.8); MONOCYTES # (AUTO) 0.6 10^3/uL (0.0-1.0); MONOCYTES % (AUTO) 5.7 %; NEUTROPHILS # (AUTO) 6.4 10^3/uL (1.5-6.6); NEUTROPHILS % (AUTO) 63.5 %; PLT - PLATELET COUNT 319 10^3/uL (130-450); RED BLOOD COUNT 4.44 10^6/uL (4.20-5.40); WHITE BLOOD COUNT 10.1 x10^3/uL (4.8-10.8)
[2018-11-29] MEDS ORDERED: ONDANSETRON 4 MG/2 ML VIAL IVP STA (16:24)
[2018-11-29] MEDS ORDERED: HYDROmorphone 1 MG/ML CARPUJECT IVP STA ×2 (16:24→17:16)
--- NOTE | 2018-11-29 16:26 | ED Physician Documentation ---
PD HPI ABD PAIN - Stated complaint Stated Complaint: LLQ PAIN - Chief complaint Chief Complaint: Abd Pain - History obtained from History obtained from: Patient - History of Present Illness Timing - onset: Today (58-year-old woman with history of recurrent diverticulitis pending surgical procedure. She has fairly frequent flares of same. Is supposed to be on antibiotics currently but has been vomiting. 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 : None HEENT: None Psych: Depression, Anxiety, ADD/ADHD Musculoskeletal: Osteoarthritis, Chronic back pain Derm: None - Past Surgical History Past Surgical History: Yes General: Appendectomy Ortho: Spine surgery /CIVIL ESTIMATOR: Mastectomy - Present Medications Home Medications: Ambulatory Orders Medication Instructions Recorded Confirmed RX: Venlafaxine HCl [Venlafaxine 75 mg PO QPM 06/17/17 08/19/18 HCl ER] RX: hydroCHLOROthiazide 25 mg PO DAILY 08/10/17 08/19/18 [Hydrochlorothiazide] RX: Albuterol Sulfate [Proair 2 puffs INH Q4H PRN 03/02/18 08/19/18 Respiclick] RX: Thyroid,Pork [[place] Thyroid] 120 mg PO QDAC 03/02/18 08/19/18 RX: Venlafaxine HCl [Venlafaxine 150 mg PO DAILY 03/02/18 08/19/18 HCl ER] RX: traZODone [Desyrel] 200 mg PO HS PRN 03/02/18 08/19/18 RX: Lisinopril 5 mg PO DAILY 07/27/18 08/19/18 RX: Cyclobenzaprine [Flexeril] 5 - 10 mg PO TID PRN 08/19/18 08/19/18 Ondansetron Odt [Zofran] 4 mg TL Q6H PRN #10 tablet 09/30/18 RX: Naproxen 375 mg PO BID #20 tablet 10/11/18 Oxycodone HCl/Acetaminophen 1 - 2 each PO Q6H PRN #14 tablet 10/27/18 [Percocet 5-325 mg Tablet] Oxycodone HCl/Acetaminophen 1 - 2 each PO Q6H PRN #20 tablet 11/21/18 [Percocet 5-325 mg Tablet] Cephalexin [Keflex] 500 mg PO TID #21 capsule 11/24/18 Metronidazole [Flagyl] 500 mg PO BID #14 tablet 11/24/18 Oxycodone HCl/Acetaminophen 1 each PO Q6H PRN #20 tablet 11/24/18 [Percocet 5-325 mg Tablet] Ondansetron Odt [Zofran] 4 mg TL Q6H PRN #10 tablet 11/29/18 Oxycodone HCl/Acetaminophen 1 - 2 each PO Q6H PRN #14 tablet 11/29/18 [Percocet 5-325 mg Tablet] - Allergies Allergies/Adverse Reactions: Allergies Allergy/AdvReac Type Severity Reaction Status Date / Time adhesive tape Allergy Rash Verified 11/24/18 04:40 latex Allergy Rash Verified 11/24/18 04:40 gabapentin AdvReac Hallucinati Verified 11/24/18 04:40 ons hydrocodone bitartrate * AdvReac Itching Verified 11/24/18 04:40 [From Vicodin] - Social History Does the pt smoke?: No Smoking Status: Never smoker Does the pt drink ETOH?: No Does the pt have substance abuse?: No - Family History Family history: reports: Non contributory - Immunizations Immunizations are current?: Yes - POLST Patient has POLST: No POLST Status: Full Code PD ED PE NORMAL - Vitals Vital signs reviewed: Yes - General General: Alert and oriented X 3, Other (Uncomfortable, in pain) - HEENT HEENT: PERRL, EOMI - Neck Neck: Supple, no meningeal sign, No bony TTP - Cardiac Cardiac: RRR, No murmur - Respiratory Respiratory: No respiratory distress, Clear bilaterally - Abdomen Abdomen: Normal bowel sounds, Soft, Other (Tender the left lower abdomen without surgical signs) - Back Back: No CVA TTP, No spinal TTP - Derm Derm: Normal color, Warm and dry - Extremities Extremities: No edema, No calf tenderness / cord - Neuro Neuro: Alert and oriented X 3, Normal speech Results - Vitals Vitals: Vital Signs - 24 hr 11/29/18 11/29/18 11/29/18 16:00 18:27 18:52 Temperature 36.7 C Heart Rate 105 H 95 Respiratory 24 18 Rate Blood Pressure 159/106 H 167/108 H 150/102 H O2 Saturation 96 96 11/29/18 19:49 Temperature Heart Rate 97 Respiratory 16 Rate Blood Pressure 148/102 H O2 Saturation 95 Oxygen O2 Source Room air - Labs Labs: Laboratory Tests 11/29/18 11/29/18 11/29/18 16:15 16:15 17:30 WBC 10.1 RBC 4.44 Hgb 13.9 Hct 41.1 MCV 92.6 MCH 31.3 H MCHC 33.8 RDW 13.0 Plt Count 319 MPV 7.6 L Neut # (Auto) 6.4 Lymph # (Auto) 2.8 [place] # (Auto) 0.6 Eos # (Auto) 0.2 Baso # (Auto) 0.0 Absolute Nucleated RBC 0.00 Nucleated RBC % 0.0 Sodium 138 Potassium 3.9 Chloride 105 Carbon Dioxide 25 Anion Gap 8.0 BUN 14 Creatinine 0.7 Estimated GFR (MDRD) 86 L Glucose 124 H Calcium 9.3 Total Bilirubin 0.3 AST 24 ALT 28 Alkaline Phosphatase 72 Total Protein 7.2 Albumin 3.8 Globulin 3.4 Albumin/Globulin Ratio 1.1 Lipase 25 Urine Color YELLOW Urine Clarity CLEAR Urine pH 7.0 Ur Specific [place] <=1.005 Urine Protein NEGATIVE Urine Glucose (UA) NEGATIVE Urine Ketones NEGATIVE Urine Occult Blood NEGATIVE Urine Nitrite NEGATIVE Urine Bilirubin NEGATIVE Urine Urobilinogen 0.2 (NORMAL) Ur Leukocyte Esterase NEGATIVE Ur Microscopic Review NOT INDICATED Urine Culture Comments NOT INDICATED - Rads (name of study) CT A/P Radiology: EMP read contemporaneously (Stable chronic tethering of the rectosigmoid colon due to chronic diverticulitis and suggestion of a colocolonic fistula.) PD MEDICAL DECISION MAKING - ED course ED course: This is a 58-year-old woman with with recurrent diverticulitis pending surgical resection with a flare of same. She felt it was a little worse than normal and requested a CT which was negative for acute changes but corroborated the underlying diagnosis. She improved stepwise with medications and was also given IV antibiotics here. She has antibiotics at home. Departure - Departure Disposition: Home, Self Care Clinical Impression: Diverticulitis Condition: Good Record reviewed to determine appropriate education?: Yes Instructions: ED Diverticulitis Follow-Up: Eris Newman MD [Provider Admit Priv/Credential] - Prescriptions: Ondansetron Odt [Zofran] 4 mg TL Q6H PRN #10 tablet PRN Reason: Nausea / Vomiting Oxycodone HCl/Acetaminophen [Percocet 5-325 mg Tablet] 1 - 2 each PO Q6H PRN #14 tablet PRN Reason: pain Comments: Continue the antibiotics you have and return if worse. Call Dr. Newman's office tomorrow, as we discussed you do need a surgical procedure. Discharge Date/Time: 11/29/18 20:01
[2018-11-29 16:33] LABS: ALBUMIN 3.8 g/dL (3.2-5.5); ALBUMIN/GLOBULIN RATIO 1.1 (1.0-2.2); BILIRUBIN,TOTAL 0.3 mg/dL (0.2-1.0); CALCIUM 9.3 mg/dL (8.5-10.3); CREATININE 0.7 mg/dL (0.4-1.0); TOTAL PROTEIN 7.2 g/dL (6.7-8.2)
[2018-11-29] MEDS ORDERED: IOPAMIDOL-300 100 ML VIAL ONE (16:36)
[2018-11-29] MEDS ORDERED: IOPAMIDOL-300 100 ML VIAL IVP ONE (17:05)
--- NOTE | 2018-11-29 17:29 | CT Report ---
Reason: abd pain, IV only Procedure Date: 11/29/2018 Accession Number: [id number] / [id number] Procedure: CT - Abdomen/Pelvis W CPT Code: FULL RESULT: EXAM: CT ABDOMEN AND PELVIS EXAM DATE: 11/29/2018 05:09 PM. CLINICAL HISTORY: Abd pain, IV only. COMPARISONS: ABDOMEN/PELVIS W/ 10/27/2018 11:02 AM ABDOMEN/PELVIS W/ 05/23/2018 11:02 PM. TECHNIQUE: Routine helical CT imaging was performed through the abdomen and pelvis. IV contrast: ISOVUE 300 100mL. Enteric contrast: No. Reconstructions: Coronal and sagittal. In accordance with CT protocol optimization, one or more of the following dose reduction techniques were utilized for this exam: automated exposure control, adjustment of mA and/or KV based on patient size, or use of iterative reconstructive technique. FINDINGS: Lung Bases: Unremarkable. Liver: No masses. Gallbladder/Bile Ducts: Unremarkable. Spleen: Normal. Pancreas: Normal. Adrenal Glands: Normal. Kidneys: No masses or hydronephrosis. Peritoneal Cavity/Bowel: Again seen is diverticulosis of the rectosigmoid colon with tethering of segments to itself suggestive of colocolonic fistula (axial series 3 image 58) (coronal series 5 images 40-43), similar in appearance when compared back to 05/23/18 CT. No definite acute diverticulitis. No free air or focal fluid collection. Pelvic Organs: Bladder and visualized pelvic organs are within normal limits. Vasculature: No aneurysms or other significant abnormality. Bones: Posterior spinal fusion. Other: None. IMPRESSION: Stable appearance of chronic tethering of rectosigmoid colon due to chronic diverticulitis and suggestive of colocolonic fistula. RADIA
[2018-11-29 17:42] LABS: BILIRUBIN,URINE NEGATIVE (NEGATIVE); GLUCOSE, URINE (UA) NEGATIVE (NEGATIVE); KETONES,URINE (UA) NEGATIVE (NEGATIVE); LEUKOCYTE ESTERASE, URINE NEGATIVE (NEGATIVE); NITRITE,URINE NEGATIVE (NEGATIVE); OCCULT BLOOD,URINE NEGATIVE (NEGATIVE); PROTEIN,URINE NEGATIVE (NEGATIVE); UROBILINOGEN,URINE 0.2 (NORMAL) E.U./dL (NORMAL)
[2018-11-29 17:43] LABS: CLARITY,URINE CLEAR (CLEAR)
[2018-11-29] MEDS ORDERED: metroNIDAZOLE 500 MG/100 ML 500 MG/100 ML BAG IV ONE (17:50)
[2018-11-29] MEDS ORDERED: METOCLOPRAMIDE 10 MG/2 ML VIAL IVP STA (17:50)
[2018-11-29] MEDS ORDERED: cefTRIAXone 1 GM in SODIUM CHLORIDE 0.9% MINIBAG 100 ML IV STA (17:50)
[2018-11-29] MEDS ORDERED: HYDROmorphone 2 MG/ML VIAL IVP STA (17:50)
[2018-11-29] MEDS ORDERED: oxyCODONE/ACET 5/325 Prepack 4 PO STA (19:00)
[2018-11-29] MEDS ORDERED: ONDANSETRON ODT 4 MG Prepack 2 TL STA (19:00)
[2018-11-29 19:52] VITALS: BP 148/102
== END 2018-11-29 20:01 | disposition home or self-care (01) ==
LOC: ED 15:55
DX: K57.92 Diverticulitis of intestine, part unspecified, without perforation or abscess without bleeding (principal); I10 Essential (primary) hypertension; E03.9 Hypothyroidism, unspecified; Z85.3 Personal history of malignant neoplasm of breast; Z90.10 Acquired absence of unspecified breast and nipple
CPT/HCPCS: 36415; 74177; 80053; 81003; 83690; 85025; 96365; 96367; 96375; 96376; 99284; J1170; J2765; Q9967; 81001; 87086

== ENCOUNTER 2018-12-05 07:10 | Emergency (ER) | payer OTHER ==
[2018-12-05] MEDS ORDERED: ONDANSETRON 4 MG/2 ML VIAL IVP STA ×2 (07:33→09:41)
[2018-12-05] MEDS ORDERED: HYDROmorphone 1 MG/ML CARPUJECT IVP STA ×2 (07:33→08:52)
[2018-12-05] MEDS ORDERED: SODIUM CHLORIDE 0.9% 1,000 ML IV ONE (07:33)
--- NOTE | 2018-12-05 07:36 | ED Physician Documentation ---
PD HPI ABD PAIN - Stated complaint Stated Complaint: VOMITING/ABDOMINAL PAIN - Chief complaint Chief Complaint: Abd Pain - History obtained from History obtained from: Patient - History of Present Illness Timing - onset: How many days ago (4) Timing - duration: Days (4) Timing - details: Gradual onset, Still present Quality: Sharp, Pain Location: LLQ Radiation: Lower back Improved by: Laying still Worsened by: Moving, Position, Palpation Associated symptoms: Nausea, Vomiting Similar symptoms before: Diagnosis (chronic diverticulitis with colonocolonic fistula.) Recently seen: Emergency Dept - Additional information Additional information: 58-year-old female with a 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 She has had inflammation in the area previously and with or without the inflammation she will have painful episodes. She has an appointment to see Eris Newman for surgery on December 15, 2018. She denies a fever and states that today she believes this is an issue with a pain crisis and she is out of pain medication and vomiting. Review of Systems Constitutional: denies: Fever Eyes: denies: Decreased vision Ears: denies: Ear pain Nose: denies: Congestion Throat: denies: Sore throat Cardiac: denies: Chest pain / pressure, Palpitations Respiratory: denies: Dyspnea, Cough GI: reports: Abdominal Pain, Nausea, Vomiting : denies: Dysuria, Frequency Skin: denies: Rash Musculoskeletal: reports: Back pain. 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 : None HEENT: None Psych: Depression, Anxiety, ADD/ADHD Musculoskeletal: Osteoarthritis, Chronic back pain Derm: None - Past Surgical History Past Surgical History: Yes General: Appendectomy Ortho: Spine surgery /PASTE UP COPY CAMERA OPERATOR: Mastectomy - Present Medications Home Medications: Ambulatory Orders Medication Instructions Recorded Confirmed Venlafaxine HCl [Venlafaxine HCl 75 mg PO QPM 06/17/17 08/19/18 ER] hydroCHLOROthiazide 25 mg PO DAILY 08/10/17 08/19/18 [Hydrochlorothiazide] Albuterol Sulfate [Proair 2 puffs INH Q4H PRN 03/02/18 08/19/18 Respiclick] Thyroid,Pork [[place] Thyroid] 120 mg PO QDAC 03/02/18 08/19/18 Venlafaxine HCl [Venlafaxine HCl 150 mg PO DAILY 03/02/18 08/19/18 ER] traZODone [Desyrel] 200 mg PO HS PRN 03/02/18 08/19/18 Lisinopril 5 mg PO DAILY 07/27/18 08/19/18 Cyclobenzaprine [Flexeril] 5 - 10 mg PO TID PRN 08/19/18 08/19/18 Ondansetron Odt [Zofran] 4 mg TL Q6H PRN #10 tablet 09/30/18 Naproxen 375 mg PO BID #20 tablet 10/11/18 Oxycodone HCl/Acetaminophen 1 - 2 each PO Q6H PRN #14 tablet 10/27/18 [Percocet 5-325 mg Tablet] Cephalexin [Keflex] 500 mg PO TID #21 capsule 11/24/18 Metronidazole [Flagyl] 500 mg PO BID #14 tablet 11/24/18 Oxycodone HCl/Acetaminophen 1 each PO Q6H PRN #20 tablet 11/24/18 [Percocet 5-325 mg Tablet] Ondansetron Odt [Zofran] 4 mg TL Q6H PRN #10 tablet 11/29/18 Oxycodone HCl/Acetaminophen 1 - 2 each PO Q6H PRN #14 tablet 11/29/18 [Percocet 5-325 mg Tablet] Ondansetron Odt [Zofran] 4 mg TL Q6H PRN #10 tablet 12/05/18 Oxycodone HCl/Acetaminophen 1 - 2 each PO Q6H PRN #20 tablet 12/05/18 [Percocet 5-325 mg Tablet] - Allergies Allergies/Adverse Reactions: Allergies Allergy/AdvReac Type Severity Reaction Status Date / Time adhesive tape Allergy Rash Verified 12/05/18 07:17 latex Allergy Rash Verified 12/05/18 07:17 gabapentin AdvReac Hallucinati Verified 12/05/18 07:17 ons hydrocodone bitartrate * AdvReac Itching Verified 12/05/18 07:17 [From Vicodin] - Social History Does the pt smoke?: No Smoking Status: Never smoker Does the pt drink ETOH?: No Does the pt have substance abuse?: No - Immunizations Immunizations are current?: Yes - POLST Patient has POLST: No POLST Status: Full Code PD ED PE NORMAL - Vitals Vital signs reviewed: Yes (tachy and hypertensive ) - General General: Alert and oriented X 3, Well developed/nourished, Other (appears to be in pain ) - HEENT HEENT: Atraumatic, PERRL, EOMI - Neck Neck: Supple, no meningeal sign, No bony TTP - Cardiac Cardiac: No murmur, Other (tachy to 100) - Respiratory Respiratory: No respiratory distress, Clear bilaterally - Abdomen Abdomen: Soft, Other (general and LLQ tenderness without guarding or rebound te nderness) - Back Back: No CVA TTP, No spinal TTP - Derm Derm: Normal color, Warm and dry, No rash - Extremities Extremities: No deformity, No edema - Neuro Neuro: Alert and oriented X 3, 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, No motor deficit, No sensory deficit, Normal speech Eye Opening: Spontaneous Motor: Obeys Commands Verbal: Oriented GCS Score: 15 - Psych Psych: Normal mood, Normal affect Results - Vitals Vitals: Vital Signs - 24 hr 12/05/18 12/05/18 07:14 08:21 Temperature 36.5 C Heart Rate 105 H 85 Respiratory 14 18 Rate Blood Pressure 154/124 H 157/108 H O2 Saturation 98 98 Oxygen O2 Source Room air - Labs Labs: Laboratory Tests 12/05/18 12/05/18 07:40 07:40 WBC 7.6 RBC 4.46 Hgb 13.9 Hct 41.0 MCV 91.9 MCH 31.1 H MCHC 33.9 RDW 13.3 Plt Count 282 MPV 7.8 L Neut # (Auto) 4.8 Lymph # (Auto) 2.0 [place] # (Auto) 0.4 Eos # (Auto) 0.3 Baso # (Auto) 0.1 Absolute Nucleated RBC 0.01 Nucleated RBC % 0.1 Sodium 140 Potassium 4.0 Chloride 107 Carbon Dioxide 23 Anion Gap 10.0 BUN 14 Creatinine 0.6 Estimated GFR (MDRD) 103 Glucose 115 H Calcium 9.2 Total Bilirubin 0.8 AST 26 ALT 40 Alkaline Phosphatase 65 Total Protein 7.4 Albumin 4.0 Globulin 3.4 Albumin/Globulin Ratio 1.2 Lipase 21 L PD MEDICAL DECISION MAKING - ED course Complexity details: reviewed old records, reviewed results, re-evaluated patient, considered differential, d/w patient ED course: 58 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 Departure - Departure Disposition: 01 Home, Self Care Clinical Impression: Fistula of large intestine Condition: Stable Instructions: Diverticulosis Diverticulitis Follow-Up: Kathleen Asher MD [Primary Care Provider] - Eris Newman MD [Provider Admit Priv/Credential] - Prescriptions: Ondansetron Odt [Zofran] 4 mg TL Q6H PRN #10 tablet PRN Reason: Nausea / Vomiting Oxycodone HCl/Acetaminophen [Percocet 5-325 mg Tablet] 1 - 2 each PO Q6H PRN #14 tablet PRN Reason: pain Oxycodone HCl/Acetaminophen [Percocet 5-325 mg Tablet] 1 - 2 each PO Q6H PRN #20 tablet PRN Reason: pain
[2018-12-05 07:55] LABS: BASOPHILS # (AUTO) 0.1 10^3/uL (0.0-0.1); BASOPHILS % (AUTO) 1.4 %; EOSINOPHILS # (AUTO) 0.3 10^3/uL (0.0-0.7); EOSINOPHILS % (AUTO) 4.1 %; HGB - HEMOGLOBIN 13.9 g/dL (12.0-16.0); LYMPHOCYTES % (AUTO) 25.8 %; MEAN CORPUSCULAR HEMOGLOBIN 31.1 pg (27.0-31.0); MEAN CORPUSCULAR HGB CONC 33.9 g/dL (32.0-36.0); MEAN CORPUSCULAR VOLUME 91.9 fL (81.0-99.0); MEAN PLATELET VOLUME 7.8 fL (7.9-10.8); MONOCYTES # (AUTO) 0.4 10^3/uL (0.0-1.0); MONOCYTES % (AUTO) 5.3 %; NEUTROPHILS # (AUTO) 4.8 10^3/uL (1.5-6.6); NEUTROPHILS % (AUTO) 63.4 %; PLT - PLATELET COUNT 282 10^3/uL (130-450); RED BLOOD COUNT 4.46 10^6/uL (4.20-5.40); RED CELL DISTRIBUTION WIDTH 13.3 % (12.0-15.0); WHITE BLOOD COUNT 7.6 x10^3/uL (4.8-10.8)
[2018-12-05 08:04] LABS: ALBUMIN/GLOBULIN RATIO 1.2 (1.0-2.2); BILIRUBIN,TOTAL 0.8 mg/dL (0.2-1.0); CALCIUM 9.2 mg/dL (8.5-10.3); CREATININE 0.6 mg/dL (0.4-1.0); TOTAL PROTEIN 7.4 g/dL (6.7-8.2)
[2018-12-05 08:22] VITALS: BP 157/108
[2018-12-05] MEDS ORDERED: DEXAMETHASONE 10 MG/ML VIAL IVP STA (08:52)
== END 2018-12-05 10:03 | disposition home or self-care (01) ==
LOC: ED 07:10
DX: K63.2 Fistula of intestine (principal); R10.32 Left lower quadrant pain; I10 Essential (primary) hypertension; Z87.19 Personal history of other diseases of the digestive system
CPT/HCPCS: 36415; 80053; 83690; 85025; 96361; 96374; 96375; 96376; 99283; J1170

== ENCOUNTER 2018-12-15 15:45 | Emergency (ER) | payer OTHER ==
[2018-12-15] MEDS ORDERED: PROCHLORPERAZINE 10 MG/2 ML VIAL IVP STA (16:33)
[2018-12-15] MEDS ORDERED: SODIUM CHLORIDE 0.9% 1,000 ML IV ONE (16:33)
[2018-12-15] MEDS ORDERED: HYDROmorphone 1 MG/ML CARPUJECT IVP STA ×2 (16:33→17:29)
[2018-12-15] MEDS ORDERED: ONDANSETRON 4 MG/2 ML VIAL IVP STA ×2 (16:36→18:34)
[2018-12-15] MEDS ORDERED: metroNIDAZOLE 250 MG TABLET PO STA (16:36)
[2018-12-15] MEDS ORDERED: CIPROFLOXACIN 250 MG TABLET PO STA (16:36)
--- NOTE | 2018-12-15 16:38 | ED Physician Documentation ---
PD HPI ABD PAIN - Stated complaint Stated Complaint: L ABD PAIN - Chief complaint Chief Complaint: Abd Pain - History obtained from History obtained from: Patient - History of Present Illness Timing - onset: Other (58-year-old woman has basically had diverticulitis pretty much constantly for the last 6 months. She came over from the surgeon's office, now she is scheduled for partial colectomy January 12. Pain is severe in the left lower quadrant. She is nauseous but not vomiting. Her stools been basically normal. 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 INTERNSHIP: Breast cancer : None HEENT: None Psych: Depression, Anxiety, ADD/ADHD Musculoskeletal: Osteoarthritis, Chronic back pain Derm: None - Past Surgical History Past Surgical History: Yes General: Appendectomy Ortho: Spine surgery /SPORTS MANAGEMENT INTERNSHIP: Mastectomy - Present Medications Home Medications: Ambulatory Orders Medication Instructions Recorded Confirmed Venlafaxine HCl [Venlafaxine HCl 75 mg PO QPM 06/17/17 08/19/18 ER] hydroCHLOROthiazide 25 mg PO DAILY 08/10/17 08/19/18 [Hydrochlorothiazide] Albuterol Sulfate [Proair 2 puffs INH Q4H PRN 03/02/18 08/19/18 Respiclick] Thyroid,Pork [[place] Thyroid] 120 mg PO QDAC 03/02/18 08/19/18 Venlafaxine HCl [Venlafaxine HCl 150 mg PO DAILY 03/02/18 08/19/18 ER] traZODone [Desyrel] 200 mg PO HS PRN 03/02/18 08/19/18 Lisinopril 5 mg PO DAILY 07/27/18 08/19/18 Cyclobenzaprine [Flexeril] 5 - 10 mg PO TID PRN 08/19/18 08/19/18 Ondansetron Odt [Zofran] 4 mg TL Q6H PRN #10 tablet 09/30/18 Naproxen 375 mg PO BID #20 tablet 10/11/18 Oxycodone HCl/Acetaminophen 1 - 2 each PO Q6H PRN #14 tablet 10/27/18 [Percocet 5-325 mg Tablet] Cephalexin [Keflex] 500 mg PO TID #21 capsule 11/24/18 Metronidazole [Flagyl] 500 mg PO BID #14 tablet 11/24/18 Oxycodone HCl/Acetaminophen 1 each PO Q6H PRN #20 tablet 11/24/18 [Percocet 5-325 mg Tablet] Ondansetron Odt [Zofran] 4 mg TL Q6H PRN #10 tablet 11/29/18 Oxycodone HCl/Acetaminophen 1 - 2 each PO Q6H PRN #14 tablet 11/29/18 [Percocet 5-325 mg Tablet] Ondansetron Odt [Zofran] 4 mg TL Q6H PRN #10 tablet 12/05/18 Oxycodone HCl/Acetaminophen 1 - 2 each PO Q6H PRN #20 tablet 12/05/18 [Percocet 5-325 mg Tablet] Ciprofloxacin HCl [Cipro] 500 mg PO BID #20 tablet 12/15/18 Metronidazole [Flagyl] 500 mg PO BID #20 tablet 12/15/18 Ondansetron Odt [Zofran] 4 mg TL Q6H PRN #10 tablet 12/15/18 Oxycodone HCl/Acetaminophen 1 - 2 each PO Q6H PRN #5 tablet 12/15/18 [Percocet 5-325 mg Tablet] - Allergies Allergies/Adverse Reactions: Allergies Allergy/AdvReac Type Severity Reaction Status Date / Time adhesive tape Allergy Rash Verified 12/15/18 15:49 latex Allergy Rash Verified 12/15/18 15:49 gabapentin AdvReac Hallucinati Verified 12/15/18 15:49 ons hydrocodone bitartrate * AdvReac Itching Verified 12/15/18 15:49 [From Vicodin] - Social History Does the pt smoke?: No Smoking Status: Never smoker Does the pt drink ETOH?: No Does the pt have substance abuse?: No - Immunizations Immunizations are current?: Yes - POLST Patient has POLST: No POLST Status: Full Code PD ED PE NORMAL - Vitals Vital signs reviewed: Yes - General General: Alert and oriented X 3, Other (Appears uncomfortable) - Abdomen Abdomen: Normal bowel sounds, Soft, Other (TTP LLQ without surgical signs) - Derm Derm: Normal color, Warm and dry - Extremities Extremities: No edema, No calf tenderness / cord - Neuro Neuro: Alert and oriented X 3, 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 Results - Vitals Vitals: Vital Signs - 24 hr 12/15/18 15:50 Temperature 36.6 C Heart Rate 135 H Respiratory 22 Rate Blood Pressure 180/120 H O2 Saturation 96 Oxygen O2 Source Room air - Labs Labs: Laboratory Tests 12/15/18 12/15/18 16:47 16:47 WBC 9.3 RBC 4.51 Hgb 13.9 Hct 41.1 MCV 91.3 MCH 30.9 MCHC 33.8 RDW 12.8 Plt Count 299 MPV 7.6 L Neut # (Auto) 5.7 Lymph # (Auto) 2.5 [place] # (Auto) 0.8 Eos # (Auto) 0.3 Baso # (Auto) 0.0 Absolute Nucleated RBC 0.00 Nucleated RBC % 0.0 Sodium 140 Potassium 3.8 Chloride 105 Carbon Dioxide 26 Anion Gap 9.0 BUN 12 Creatinine 0.6 Estimated GFR (MDRD) 103 Glucose 110 H Calcium 10.0 Total Bilirubin < 0.2 L AST 20 ALT 22 Alkaline Phosphatase 68 Total Protein 7.0 Albumin 3.8 Globulin 3.2 Albumin/Globulin Ratio 1.2 Lipase 21 L PD MEDICAL DECISION MAKING - ED course Complexity details: reviewed old records (visits about 2/month to the ED for the last year) ED course: 58-year-old woman with recurrent diverticulitis. She was medicated here. I do not see any need for CT. Antibiotics were restarted. I was approached by a friend of hers who was concerned for drug-seeking behavior. Said she had been stealing another person's medications. This was discussed with the patient's, I discussed with her that after tonight no further prescriptions for narcotics would be coming from the emergency department. Departure - Departure Disposition: 01 Home, Self Care Clinical Impression: Diverticulitis of gastrointestinal tract Condition: Good Record reviewed to determine appropriate education?: Yes Instructions: ED Diverticulitis Prescriptions: Ciprofloxacin HCl [Cipro] 500 mg PO BID #20 tablet Metronidazole [Flagyl] 500 mg PO BID #20 tablet Ondansetron Odt [Zofran] 4 mg TL Q6H PRN #10 tablet PRN Reason: Nausea / Vomiting Oxycodone HCl/Acetaminophen [Percocet 5-325 mg Tablet] 1 - 2 each PO Q6H PRN #5 tablet PRN Reason: pain Comments: As discussed based on the concerns noted we will be unable to continue to prescribe narcotic pain medication for this ongoing issue from the emergency department. Follow-up with your primary care physician for ongoing pain management until your surgery.
[2018-12-15 16:54] LABS: BASOPHILS % (AUTO) 0.2 %; EOSINOPHILS # (AUTO) 0.3 10^3/uL (0.0-0.7); EOSINOPHILS % (AUTO) 2.9 %; HGB - HEMOGLOBIN 13.9 g/dL (12.0-16.0); LYMPHOCYTES # (AUTO) 2.5 10^3/uL (1.5-3.5); LYMPHOCYTES % (AUTO) 27.3 %; MEAN CORPUSCULAR HEMOGLOBIN 30.9 pg (27.0-31.0); MEAN CORPUSCULAR HGB CONC 33.8 g/dL (32.0-36.0); MEAN CORPUSCULAR VOLUME 91.3 fL (81.0-99.0); MEAN PLATELET VOLUME 7.6 fL (7.9-10.8); MONOCYTES # (AUTO) 0.8 10^3/uL (0.0-1.0); MONOCYTES % (AUTO) 8.2 %; NEUTROPHILS # (AUTO) 5.7 10^3/uL (1.5-6.6); NEUTROPHILS % (AUTO) 61.4 %; PLT - PLATELET COUNT 299 10^3/uL (130-450); RED BLOOD COUNT 4.51 10^6/uL (4.20-5.40); RED CELL DISTRIBUTION WIDTH 12.8 % (12.0-15.0); WHITE BLOOD COUNT 9.3 x10^3/uL (4.8-10.8)
[2018-12-15 17:03] LABS: ALBUMIN 3.8 g/dL (3.2-5.5); ALBUMIN/GLOBULIN RATIO 1.2 (1.0-2.2); ALKALINE PHOSPHATASE 68 IU/L (42-121); ALT ALANINE AMINOTRANSFERASE 22 IU/L (10-60); AST ASPARTATE AMINOTRANSFERASE 20 IU/L (10-42); BILIRUBIN,TOTAL < 0.2 mg/dL (0.2-1.0); BUN - BLOOD UREA NITROGEN 12 mg/dL (6-20); CARBON DIOXIDE - CO2 26 mmol/L (21-32); CHLORIDE 105 mmol/L (101-111); CREATININE 0.6 mg/dL (0.4-1.0); GFR - MDRD 103 (>89); GLUCOSE 110 mg/dL (70-100); LIPASE 21 U/L (22-51); SODIUM 140 mmol/L (135-145)
[2018-12-15 18:31] VITALS: BP 157/122
[2018-12-15] MEDS ORDERED: HYDROmorphone 2 MG/ML VIAL IVP STA (18:34)
== END 2018-12-15 18:51 | disposition home or self-care (01) ==
LOC: ED 15:45
DX: K57.92 Diverticulitis of intestine, part unspecified, without perforation or abscess without bleeding (principal); I10 Essential (primary) hypertension; E03.9 Hypothyroidism, unspecified; Z85.3 Personal history of malignant neoplasm of breast; Z76.5 Malingerer [conscious simulation]; Z90.10 Acquired absence of unspecified breast and nipple
CPT/HCPCS: 36415; 80053; 83690; 85025; 96374; 96375; 96376; 99283; 99284; A9270; J1170

== ENCOUNTER 2018-12-17 15:30 | Outpatient (CLI) | payer OTHER | END 2018-12-17 15:31 | disposition critical access hospital (66) | LOC: EMS 15:30 | PROVIDERS: ATTEND Surgery | DX: R10.9 Unspecified abdominal pain (principal); R11.2 Nausea with vomiting, unspecified | CPT/HCPCS: A0425; A0427 ==

== ENCOUNTER 2018-12-17 16:00 | Emergency (ER) | payer OTHER ==
[2018-12-17] MEDS ORDERED: ONDANSETRON 4 MG/2 ML VIAL IVP STA (16:06)
[2018-12-17] MEDS ORDERED: HYDROmorphone 1 MG/ML CARPUJECT IVP STA (16:06)
[2018-12-17] MEDS ORDERED: SODIUM CHLORIDE 0.9% 1,000 ML IV ONE (16:06)
[2018-12-17] MEDS ORDERED: KETOROLAC 30 MG/ML VIAL IVP STA (16:09)
--- NOTE | 2018-12-17 16:13 | ED Physician Documentation ---
PD HPI ABD PAIN - Stated complaint Stated Complaint: ABD PX - Chief complaint Chief Complaint: Abd Pain - History obtained from History obtained from: Patient, EMS - History of Present Illness Timing - onset: Other (This is a 58-year-old woman with chronic diverticulitis. See previous notes that she is here frequently especially my note from the other day. There are significant concerns for drug addiction and pain seeking behavior. A friend contacted me the other day to tell me that she had been stealing another patient's pain medications, and it was also relayed to me that after that visit although she was picked up and driven home she returned within the hour and drove her own car home after receiving 3 mg of Dilaudid while in the emergency department. She returns for persistent left lower quadrant pain without change. She is nauseous. She is taking the antibiotics.) Review of Systems Ten Systems: 10 systems reviewed and negative Constitutional: denies: Fever, Chills GI: reports: Abdominal Pain, Nausea. denies: Vomiting, Constipation, Diarrhea PD PAST MEDICAL HISTORY - Past Medical History Cardiovascular: Hypertension Respiratory: Asthma, Shortness of breath Neuro: Headaches, Motion sickness Endocrine/Autoimmune: HyPOthyroidism GI: Diverticulitis [employer]OR [employer] OPERATIONS: Breast cancer : None HEENT: None Psych: Depression, Anxiety, ADD/ADHD Musculoskeletal: Osteoarthritis, Chronic back pain Derm: None - Past Surgical History Past Surgical History: Yes General: Appendectomy Ortho: Spine surgery /[employer]OR [employer] OPERATIONS: Mastectomy - Present Medications Home Medications: Ambulatory Orders Medication Instructions Recorded Confirmed Venlafaxine HCl [Venlafaxine HCl 75 mg PO QPM 06/17/17 08/19/18 ER] hydroCHLOROthiazide 25 mg PO DAILY 08/10/17 08/19/18 [Hydrochlorothiazide] Albuterol Sulfate [Proair 2 puffs INH Q4H PRN 03/02/18 08/19/18 Respiclick] Thyroid,Pork [[place] Thyroid] 120 mg PO QDAC 03/02/18 08/19/18 Venlafaxine HCl [Venlafaxine HCl 150 mg PO DAILY 03/02/18 08/19/18 ER] traZODone [Desyrel] 200 mg PO HS PRN 03/02/18 08/19/18 Lisinopril 5 mg PO DAILY 07/27/18 08/19/18 Cyclobenzaprine [Flexeril] 5 - 10 mg PO TID PRN 08/19/18 08/19/18 Ondansetron Odt [Zofran] 4 mg TL Q6H PRN #10 tablet 09/30/18 Naproxen 375 mg PO BID #20 tablet 10/11/18 Oxycodone HCl/Acetaminophen 1 - 2 each PO Q6H PRN #14 tablet 10/27/18 [Percocet 5-325 mg Tablet] Cephalexin [Keflex] 500 mg PO TID #21 capsule 11/24/18 Metronidazole [Flagyl] 500 mg PO BID #14 tablet 11/24/18 Oxycodone HCl/Acetaminophen 1 each PO Q6H PRN #20 tablet 11/24/18 [Percocet 5-325 mg Tablet] Ondansetron Odt [Zofran] 4 mg TL Q6H PRN #10 tablet 11/29/18 Oxycodone HCl/Acetaminophen 1 - 2 each PO Q6H PRN #14 tablet 11/29/18 [Percocet 5-325 mg Tablet] Ondansetron Odt [Zofran] 4 mg TL Q6H PRN #10 tablet 12/05/18 Oxycodone HCl/Acetaminophen 1 - 2 each PO Q6H PRN #20 tablet 12/05/18 [Percocet 5-325 mg Tablet] Ciprofloxacin HCl [Cipro] 500 mg PO BID #20 tablet 12/15/18 Metronidazole [Flagyl] 500 mg PO BID #20 tablet 12/15/18 Ondansetron Odt [Zofran] 4 mg TL Q6H PRN #10 tablet 12/15/18 Oxycodone HCl/Acetaminophen 1 - 2 each PO Q6H PRN #5 tablet 12/15/18 [Percocet 5-325 mg Tablet] Ketorolac [Toradol] 10 mg PO Q6H PRN #14 tablet 12/17/18 - Allergies Allergies/Adverse Reactions: Allergies Allergy/AdvReac Type Severity Reaction Status Date / Time adhesive tape Allergy Rash Verified 12/15/18 15:49 latex Allergy Rash Verified 12/15/18 15:49 gabapentin AdvReac Hallucinati Verified 12/15/18 15:49 ons hydrocodone bitartrate * AdvReac Itching Verified 12/15/18 15:49 [From Vicodin] - Social History Does the pt smoke?: No Smoking Status: Never smoker Does the pt drink ETOH?: No Does the pt have substance abuse?: No - Immunizations Immunizations are current?: Yes - POLST Patient has POLST: No POLST Status: Full Code PD ED PE NORMAL - Vitals Vital signs reviewed: Yes - General General: Alert and oriented X 3, No acute distress - Abdomen Abdomen: Normal bowel sounds, Soft, Other (She is tender but she is distractible from the tenderness. There are no surgical signs.) - Neuro Neuro: Alert and oriented X 3, Normal speech Results - Vitals Vitals: Vital Signs - 24 hr 12/17/18 16:03 Temperature 37.3 C Heart Rate 108 H Respiratory 18 Rate O2 Saturation 95 Oxygen O2 Source Room air PD MEDICAL DECISION MAKING - ED course ED course: This is a 58-year-old woman with chronic diverticulitis and concern for drug- seeking behavior who presents by ambulance for same. She received 100 mcg of fentanyl on the way here. There is no evidence clinically of decompensation. I spoke with her surgeon, Dr. Eris Newman who recommends no narcotic and no admi ssion given the circumstances. She is to keep her surgery date. She is given Toradol and Zofran here. Departure - Departure Disposition: 01 Home, Self Care Clinical Impression: Diverticulitis Qualifiers: Diverticulitis site: large intestine Diverticulitis bleeding: without bleeding Diverticulitis complication: without perforation or abscess Qualified Code(s): K57.32 - Diverticulitis of large intestine without perforation or abscess without bleeding Condition: Stable Record reviewed to determine appropriate education?: Yes Instructions: ED Diverticulitis Prescriptions: Ketorolac [Toradol] 10 mg PO Q6H PRN #14 tablet PRN Reason: Pain Comments: Keep your surgery date with Dr. Newman. You can take Tylenol as needed for pain. Return for new or worsening symptoms. The policy of this emergency department is to not give more than 3 prescriptions for narcotics or other controlled substances in any 1 year. You have already surpassed this benchmark and we cannot prescribe narcotics for you. I encourage you to follow up with your primary care physician or to establish care with a primary care physician for ongoing pain management. You are always welcome to seek emergency care here for this or new issues but there will likely be limitations in the prescription of narcotic pain medication.
== END 2018-12-17 16:35 | disposition home or self-care (01) ==
LOC: EDUNIT# → ED 16:00
DX: K57.32 Diverticulitis of large intestine without perforation or abscess without bleeding (principal); E03.9 Hypothyroidism, unspecified; Z85.3 Personal history of malignant neoplasm of breast; Z90.10 Acquired absence of unspecified breast and nipple
CPT/HCPCS: 80053; 83690; 85025; 96374; 96375; 99283; 99284

== ENCOUNTER 2018-12-30 12:47 | Outpatient (CLI) | payer OTHER | END 2018-12-30 12:48 | disposition home or self-care (01) | LOC: RT 12:47 | PROVIDERS: ATTEND Internal Medicine Gastroenterology | DX: Z01.810 Encounter for preprocedural cardiovascular examination (principal); K57.92 Diverticulitis of intestine, part unspecified, without perforation or abscess without bleeding | CPT/HCPCS: 93005 ==

== ENCOUNTER 2019-01-12 07:16 | Inpatient (IN) | payer OTHER ==
[2019-01-12] MEDS ORDERED: LACTATED RINGERS 1,000 ML IV ONE (07:30)
[2019-01-12] MEDS ORDERED: metroNIDAZOLE 500 MG/100 ML 500 MG/100 ML BAG ONE (07:32)
[2019-01-12] MEDS ORDERED: ceFAZolin 2 GM/50 ML 2 GM/50 ML BAG IV ONE (07:32)
[2019-01-12] MEDS ORDERED: BUPIVACAINE 0.5%-EPI 1:200000 PF 30 ML VIAL ONE (07:35)
[2019-01-12] MEDS ORDERED: LIDOCAINE 1% 50 ML MDV ONE (07:35)
[2019-01-12 07:40] VITALS: BP 126/94
[2019-01-12] MEDS ORDERED: SCOPOLAMINE PATCH TOP ONE (08:06)
--- NOTE | 2019-01-12 08:08 | ANESTHESIA ---
Pre-Anesthesia VS, & Labs - Diagnosis Diverticulitis - Procedure Lap sigmoid colectomy Vital Signs: Temp Pulse Resp BP Pulse Ox 36.1 C L 101 H 16 126/94 H 98 01/12/19 07:38 01/12/19 07:38 01/12/19 07:38 01/12/19 07:38 01/12/19 07:38 Height 5 ft 3 in Weight (kg) 87.5 kg Body Mass Index 34.3 - NPO >8 hours - Is Patient ?: No - Lab Results Lab results reviewed: Yes Home Medications and Allergies Home Medications: Ambulatory Orders Venlafaxine ER [Effexor ER] 75 mg PO DAILY 01/12/19 Venlafaxine HCl [Venlafaxine HCl ER] 75 mg PO QPM 06/17/17 hydroCHLOROthiazide [Hydrochlorothiazide] 25 mg PO DAILY 08/10/17 Albuterol Sulfate [Proair Respiclick] 2 puffs INH Q4H PRN 03/02/18 Thyroid,Pork [[place] Thyroid] 120 mg PO QDAC 03/02/18 Venlafaxine HCl [Venlafaxine HCl ER] 150 mg PO DAILY 03/02/18 traZODone [Desyrel] 200 mg PO HS PRN 03/02/18 Lisinopril 5 mg PO DAILY 07/27/18 Cyclobenzaprine [Flexeril] 5 - 10 mg PO TID PRN 08/19/18 Venlafaxine ER [Effexor ER] 75 mg PO DAILY 01/12/19 Allergies/Adverse Reactions: Allergies Allergy/AdvReac Type Severity Reaction Status Date / Time adhesive tape Allergy Rash Verified 12/15/18 15:49 latex Allergy Rash Verified 12/15/18 15:49 gabapentin AdvReac Hallucinati Verified 12/15/18 15:49 ons hydrocodone bitartrate * AdvReac Itching Verified 12/15/18 15:49 [From Vicodin] Anes History & Medical History - Anesthetic History Anesthesia Complications: reports: Post-Operative Nausea/Vomiting, Other-see comment (History of awareness) Family history of Anesthesia Complications: Denies Family history of Malignant Hyperthermia: Denies - Medical History Cardiovascular: reports: Hypertension, Murmur Pulmonary: reports: Asthma, Shortness of breath Gastrointestinal: reports: Diverticulitis Urinary: reports: None Neuro: reports: Headaches, Motion sickness Musculoskeletal: reports: Osteoarthritis, Chronic back pain Endocrine/Autoimmune: reports: HyPOthyroidism Blood Disorders: reports: None Skin: reports: None Smoking Status: Never smoker Psychosocial: reports: No issues indicated - Surgical History General: Appendectomy Gynecologic: Mastectomy Orthopedic: Spine surgery Exam General: Alert, Oriented x3 Dental: WNL Mouth Opening: Greater than 4 Fingerbreadths Neck Mobility: Normal Mallampati classification: I Thyromental Distance: greater than 6 cm Respiratory: Lungs clear Cardiovascular: Regular rate Neurological: Normal speech Mental/Cognitive Status: Alert/Oriented X3 Cognitive Status: Within normal limits Plan Anesthesia Type: General, Epidural Consent for Procedure(s) Verified and Reviewed: Yes Code Status: Attempt Resuscitation ASA classification: 3-Severe systemic disease Is this case an emergency?: No
[2019-01-12 09:22] LABS: BASOPHILS # (AUTO) 0.1 10^3/uL (0.0-0.1); BASOPHILS % (AUTO) 0.8 %; EOSINOPHILS # (AUTO) 0.1 10^3/uL (0.0-0.7); EOSINOPHILS % (AUTO) 0.7 %; HGB - HEMOGLOBIN 13.5 g/dL (12.0-16.0); LYMPHOCYTES % (AUTO) 11.9 %; MEAN CORPUSCULAR HEMOGLOBIN 30.4 pg (27.0-31.0); MEAN CORPUSCULAR HGB CONC 33.6 g/dL (32.0-36.0); MEAN CORPUSCULAR VOLUME 90.5 fL (81.0-99.0); MEAN PLATELET VOLUME 8.5 fL (7.9-10.8); MONOCYTES # (AUTO) 1.2 10^3/uL (0.0-1.0); MONOCYTES % (AUTO) 7.1 %; NEUTROPHILS # (AUTO) 13.7 10^3/uL (1.5-6.6); NEUTROPHILS % (AUTO) 79.5 %; PLT - PLATELET COUNT 235 10^3/uL (130-450); RED BLOOD COUNT 4.45 10^6/uL (4.20-5.40); RED CELL DISTRIBUTION WIDTH 12.9 % (12.0-15.0); WHITE BLOOD COUNT 17.2 x10^3/uL (4.8-10.8)
[2019-01-12 09:33] LABS: ALBUMIN 3.4 g/dL (3.2-5.5); ALBUMIN/GLOBULIN RATIO 1.1 (1.0-2.2); BILIRUBIN,TOTAL 1.1 mg/dL (0.2-1.0); CALCIUM 9.2 mg/dL (8.5-10.3); CREATININE 0.8 mg/dL (0.4-1.0); TOTAL PROTEIN 6.6 g/dL (6.7-8.2)
--- NOTE | 2019-01-12 10:52 | PROVIDER PROGRESS NOTE ---
Subjective - Prog Note Date Prog Note Date: 01/12/19 Prog Note Time: 10:50 - Subjective Pt reports feeling: No change Subjective: Pt reports that she completed her mechanical and oral antibiotic bowel prep; denies chest pain, dyspnea. Objective - Vital Signs/Intake & Output Reviewed Vital Signs: Yes Vital Signs: Vital Signs x48h Temp Pulse Resp BP Pulse Ox 01/12/19 07:38 36.1 C L 101 H 16 126/94 H 98 Intake & Output: Intake & Output 01/09/19 01/10/19 01/11/19 01/12/19 23:59 23:59 23:59 23:59 Intake Total 650 Balance 650 - Objective General Appearance: positive: No acute distress, Alert - Lab Results Fish Bones: 01/12/19 04:10 01/12/19 04:10 Other Labs: Lab Results x24hrs 01/12/19 01/12/19 Range/Units 04:10 04:10 WBC 17.2 H (4.8-10.8) x10^3/uL RBC 4.45 (4.20-5.40) 10^6/uL Hgb 13.5 (12.0-16.0) g/dL Hct 40.3 (37.0-47.0) % MCV 90.5 (81.0-99.0) fL MCH 30.4 (27.0-31.0) pg MCHC 33.6 (32.0-36.0) g/dL RDW 12.9 (12.0-15.0) % Plt Count 235 (130-450) 10^3/uL MPV 8.5 (7.9-10.8) fL Neut # (Auto) 13.7 H (1.5-6.6) 10^3/uL Lymph # (Auto) 2.0 (1.5-3.5) 10^3/uL [place] # (Auto) 1.2 H (0.0-1.0) 10^3/uL Eos # (Auto) 0.1 (0.0-0.7) 10^3/uL Baso # (Auto) 0.1 (0.0-0.1) 10^3/uL Absolute Nucleated RBC 0.00 x10^3/uL Nucleated RBC % 0.0 /100WBC Sodium 138 (135-145) mmol/L Potassium 3.1 L (3.5-5.0) mmol/L Chloride 98 L (101-111) mmol/L Carbon Dioxide 25 (21-32) mmol/L Anion Gap 15.0 H (6-13) BUN 18 (6-20) mg/dL Creatinine 0.8 (0.4-1.0) mg/dL Estimated GFR (MDRD) 74 L (>89) Glucose 123 H (70-100) mg/dL Calcium 9.2 (8.5-10.3) mg/dL Total Bilirubin 1.1 H (0.2-1.0) mg/dL AST 21 (10-42) IU/L ALT 23 (10-60) IU/L Alkaline Phosphatase 75 (42-121) IU/L Total Protein 6.6 L (6.7-8.2) g/dL Albumin 3.4 (3.2-5.5) g/dL Globulin 3.2 (2.1-4.2) g/dL Albumin/Globulin Ratio 1.1 (1.0-2.2) - Other Results/Comments Other Results/Comments: ECG: abnormal; new q waves and findings concerning for recent IN; pt reports hx chest pains with no recent evaluation. Assessment/Plan - Problem List (1) Abnormal electrocardiogram [ECG] [EKG] Impression: New findings; reviewed with anesthesia department, who recommend postponing surgery until cardiac status has been evaluated. Rec: surgery cancelled; arrangements were made for pt to f/u with her PCP, Dr. Asher later today. Discussed in detail with pt, who appears to understand and agrees with plan. (2) Hypokalemia Impression: likely due to bowel prep superimposed on diuretic therapy. Rec: pt will f/u with her PCP for this as well later today. (3) Diverticulitis Impression: chronic; stable; awaiting surgical therapy. Qualifiers: Diverticulitis site: large intestine Diverticulitis bleeding: without bleeding Diverticulitis complication: without perforation or abscess Qualified Code(s): K57.32 - Diverticulitis of large intestine without perforation or abscess without bleeding
== END 2019-01-12 09:34 | disposition home or self-care (01) | DRG 392 ==
LOC: ICU 07:16
PROVIDERS: ADMIT Internal Medicine Gastroenterology; ATTEND Internal Medicine Gastroenterology
DX: K57.32 Diverticulitis of large intestine without perforation or abscess without bleeding (principal); R94.31 Abnormal electrocardiogram [ECG] [EKG]; E87.6 Hypokalemia; Z53.09 Procedure and treatment not carried out because of other contraindication
CPT/HCPCS: 36415; 80053; 85025; 93005; J3490; J7120

== ENCOUNTER 2019-01-25 10:31 | Outpatient (CLI) | payer OTHER ==
[2019-01-25] MEDS ORDERED: REGADENOSON 0.4 MG/5 ML SYRINGE IVP ONE ×2 (13:00→13:31)
[2019-01-25] MEDS ORDERED: AMINOPHYLLINE 250 MG/10 ML VIAL ONE (13:00)
--- NOTE | 2019-01-25 15:23 | Nuclear Medicine Report ---
Reason: ABN EKG Procedure Date: 01/25/2019 Accession Number: [id number] / [id number] Procedure: NM - Myocardial Perfusion STR/RST CPT Code: FULL RESULT: EXAM: SINGLE-ISOTOPE PHARMACOLOGICAL STRESS TEST WITH REGADENOSON. SINGLE-ISOTOPE AND TWO-DAY REST/STRESS MYOCARDIAL PERFUSION SCANS WITH TOMOGRAPHIC IMAGING, QUANTITATIVE ANALYSIS, WALL MOTION ANALYSIS AND CALCULATION OF EJECTION FRACTION. EXAM DATE: 01/25/2019 02:20 PM. CLINICAL HISTORY: Abnormal EKG COMPARISON: None available. TECHNIQUE: A pharmacological stress was performed with the infusion of 0.4 mg regadenoson per protocol. According to protocol, 10.4 mCi of Tc-99m sestamibi was injected for stress myocardial perfusion scan. Motion correction was applied when appropriate. The following day after the intravenous administration of 40.9 mCi of Tc-99m sestamibi, a rest myocardial perfusion scan was done with tomography. Motion correction was applied when appropriate. Gated tomographic images were obtained for wall motion analysis and computation of left ventricular ejection fraction. FINDINGS: On visual analysis, a small mild reversible defect in the mid to distal anteroseptal wall is noted. No other convincing significant fixed or reversible perfusion defects. Computer analysis. Summed stress score 3 Summed rest score 0 Summed difference score 3 Wall motion analysis demonstrates no focal wall motion abnormality The left ventricular end-diastolic volume is 44 cc. The left ventricular end-systolic volume is 4 cc. The left ventricular ejection fraction is calculated to be 91%. IMPRESSION: 1. Mild reversible anteroseptal defect. No other convincing significant fixed or reversible perfusion defects. 2. Left ventricular ejection fraction of 91%. 3. Normal segmental and global wall motion. 4. Normal left ventricular cavity size, no change with stress. 5. Based on computer analysis, normal study with mild ischemia. Please correlate findings with stress ECG tracings and procedure notes. [facility]
== END 2019-01-25 10:32 | disposition home or self-care (01) ==
LOC: DI 10:31
PROVIDERS: ATTEND Internal Medicine
DX: I25.9 Chronic ischemic heart disease, unspecified (principal)
CPT/HCPCS: 78452; 93017; A9500; J2785

== ENCOUNTER 2019-03-16 13:21 | Outpatient (CLI) | payer SELFPAY | END 2019-03-16 13:22 | disposition short-term general hospital (02) | LOC: EMS 13:21 | PROVIDERS: ATTEND Surgery | DX: R10.32 Left lower quadrant pain (principal); R11.2 Nausea with vomiting, unspecified | CPT/HCPCS: A0425; A0427 ==

== ENCOUNTER → 2019-03-25 | Outpatient (CLI) | payer MEDICAID | END | disposition short-term general hospital (02) | LOC: EMS 09:55 | PROVIDERS: ATTEND Surgery | DX: R10.9 Unspecified abdominal pain (principal); R11.2 Nausea with vomiting, unspecified | CPT/HCPCS: A0425; A0427; A0999 ==

== ENCOUNTER 2019-03-30 09:06 | Outpatient (CLI) | payer MEDICAID | END 2019-03-30 09:07 | disposition short-term general hospital (02) | LOC: EMS 09:06 | PROVIDERS: ATTEND Surgery | DX: R10.9 Unspecified abdominal pain (principal); R11.2 Nausea with vomiting, unspecified | CPT/HCPCS: A0425; A0427; A0999 ==

== ENCOUNTER 2019-05-26 12:35 | Emergency (ER) | payer OTHER, MEDICAID ==
[2019-05-26 12:44] VITALS: BP 187/120
[2019-05-26] MEDS ORDERED: oxyCODONE 5 MG TABLET PO STA (12:47)
[2019-05-26] MEDS ORDERED: ONDANSETRON ODT 4 MG TABLET TL STA (12:47)
--- NOTE | 2019-05-26 12:50 | ED Physician Documentation ---
PD HPI UPPER EXT INJURY - Stated complaint Stated Complaint: SHOULDER PX - Chief complaint Chief Complaint: Ext Problem - History obtained from History obtained from: Patient - History of Present Illness Location: Left (This is a 59-year-old woman with chronic shoulder pain, previous x-rays showed a chronic deformity of the AC joint. She was has some level of shoulder pain. This morning she was helping a friend fix a leaky sink. She fell into the base of the sink with the left shoulder and has an increase and the left shoulder pain is now severe and she is unable to range it. Of note she has a history of concerns for drug-seeking behavior. See my notes x2 from December of this year.) Review of Systems Constitutional: reports: Reviewed and negative Ears: reports: Reviewed and negative Throat: reports: Reviewed and negative Cardiac: reports: Reviewed and negative PD PAST MEDICAL HISTORY - Past Medical History Cardiovascular: Hypertension, Murmur Respiratory: Asthma, Shortness of breath Neuro: Headaches, Motion sickness Endocrine/Autoimmune: HyPOthyroidism GI: Diverticulitis [employer]: Breast cancer : None HEENT: Chronic vision loss Psych: Depression, Anxiety, ADD/ADHD, Claustrophobia Musculoskeletal: Osteoarthritis, Chronic back pain Derm: None - Past Surgical History Past Surgical History: Yes General: Appendectomy Ortho: Spine surgery /[employer]: Mastectomy - Present Medications Home Medications: Ambulatory Orders Medication Instructions Recorded Confirmed Venlafaxine HCl [Venlafaxine HCl 75 mg PO QPM 06/17/17 12/30/18 ER] hydroCHLOROthiazide 25 mg PO DAILY 08/10/17 01/12/19 [Hydrochlorothiazide] Albuterol Sulfate [Proair 2 puffs INH Q4H PRN 03/02/18 01/12/19 Respiclick] Thyroid,Pork [[place] Thyroid] 120 mg PO QDAC 03/02/18 01/12/19 Venlafaxine HCl [Venlafaxine HCl 150 mg PO DAILY 03/02/18 12/30/18 ER] traZODone [Desyrel] 200 mg PO HS PRN 03/02/18 01/12/19 Lisinopril 5 mg PO DAILY 07/27/18 01/12/19 Cyclobenzaprine [Flexeril] 5 - 10 mg PO TID PRN 08/19/18 01/12/19 Ondansetron Odt [Zofran] 4 mg TL Q6H PRN #10 tablet 09/30/18 01/12/19 Venlafaxine ER [Effexor ER] 75 mg PO DAILY 01/12/19 01/12/19 - Allergies Allergies/Adverse Reactions: Allergies Allergy/AdvReac Type Severity Reaction Status Date / Time adhesive tape Allergy Rash Verified 05/26/19 12:40 latex Allergy Rash Verified 05/26/19 12:40 gabapentin AdvReac Hallucinati Verified 05/26/19 12:40 ons hydrocodone bitartrate * AdvReac Itching Verified 05/26/19 12:40 [From Vicodin] - Social History Does the pt smoke?: No Smoking Status: Never smoker Does the pt drink ETOH?: No Does the pt have substance abuse?: No - Immunizations Immunizations are current?: Yes - POLST Patient has POLST: No POLST Status: Full Code PD ED PE NORMAL - Vitals Vital signs reviewed: Yes - General General: Alert and oriented X 3, Other (She appears uncomfortable) - Neck Neck: Supple, no meningeal sign, No bony TTP - Extremities Extremities: Other (Left shoulder is tender both over the AC joint and the glenohumeral joint. There is no deformity. She is unable to abduct at all, but she can internally and externally rotated. She has normal sensation over the deltoid in all areas of the forearm and hand. 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 X-rays show no acute changes. She was given oxycodone here prior to x-ray. She requested a prescription for pain medications. I asked her when her last prescription for narcotics had been, she stated it had been many months. I confronted her with the fact that her [employer]MENT [employer] form showed that she was at [facility] last week for back pain and got a prescription for oxycodone. Given the inconsistency and previous history of drug-seeking behavior she was advised to take Tylenol as needed for pain. Departure - Departure Disposition: 01 Home, Self Care Clinical Impression: Contusion of left shoulder Qualifiers: Encounter type: initial encounter Qualified Code(s): S40.012A - Contusion of left shoulder, initial encounter Condition: Good Record reviewed to determine appropriate education?: Yes Instructions: ED Contusion Shoulder Follow-Up: [facility] [Provider Group] - Within 3 Days Comments: You can wear the sling as needed for a few days, but do not wear it for more than 3 days, at that point start gentle range of motion exercises and follow-up with the orthopedic surgeon for further evaluation and treatment, return if worse. As discussed, given your history of concerns for drug-seeking behavior and the fact that you told me had been months since your last prescription for narcotics when it was actually last week, I am not willing to prescribe any prescription pain medication, I recommend Tylenol as needed for pain.
--- NOTE | 2019-05-26 14:02 | XRAY Report ---
Reason: shoulder inj Procedure Date: 05/26/2019 Accession Number: [id number] / [id number] Procedure: XR - Shoulder 3 View LT CPT Code: FULL RESULT: EXAM: LEFT SHOULDER RADIOGRAPHY EXAM DATE: 05/26/2019 01:29 PM. CLINICAL HISTORY: Shoulder inj. COMPARISON: SHOULDER 3 VIEW LT 06/17/2018 2:41 PM. TECHNIQUE: 3 views. FINDINGS: Bones: No fractures or bone lesions. Joints: Unremarkable. Soft Tissues: Unremarkable. IMPRESSION: 1. No acute osseous abnormality. [facility]
== END 2019-05-26 14:11 | disposition home or self-care (01) ==
LOC: ED 12:35
DX: S40.012A Contusion of left shoulder, initial encounter (principal); W18.30XA Fall on same level, unspecified, initial encounter; Y93.89 Activity, other specified; I10 Essential (primary) hypertension
CPT/HCPCS: 73030; 99282; 99283; A9270; Q0162

== ENCOUNTER 2019-10-31 13:40 | Outpatient (CLI) | payer MEDICAID | END 2019-10-31 13:41 | disposition short-term general hospital (02) | LOC: EMS 13:40 | PROVIDERS: ATTEND Surgery | DX: R10.31 Right lower quadrant pain (principal); R11.2 Nausea with vomiting, unspecified | CPT/HCPCS: A0425; A0427; A0999 ==

== ENCOUNTER 2019-12-25 17:13 | Outpatient (CLI) | payer MEDICAID | END 2019-12-25 17:14 | disposition short-term general hospital (02) | LOC: EMS 17:13 | PROVIDERS: ATTEND Surgery | DX: M79.662 Pain in left lower leg (principal); R10.9 Unspecified abdominal pain; R11.2 Nausea with vomiting, unspecified | CPT/HCPCS: A0425; A0427; A0999 ==

== ENCOUNTER 2020-02-14 12:18 | Outpatient (CLI) | payer MEDICAID | END 2020-02-14 12:19 | disposition short-term general hospital (02) | LOC: EMS 12:18 | PROVIDERS: ATTEND Surgery | DX: R10.31 Right lower quadrant pain (principal); R11.10 Vomiting, unspecified; M79.605 Pain in left leg | CPT/HCPCS: A0425; A0427 ==

== ENCOUNTER 2020-02-28 11:38 | Outpatient (CLI) | payer MEDICAID | END 2020-02-28 11:39 | disposition short-term general hospital (02) | LOC: EMS 11:38 | PROVIDERS: ATTEND Surgery | DX: M25.512 Pain in left shoulder (principal); W01.0XXA Fall on same level from slipping, tripping and stumbling without subsequent striking against object, initial encounter; Y92.009 Unspecified place in unspecified non-institutional (private) residence as the place of occurrence of the external cause | CPT/HCPCS: A0425; A0427; A0999 ==

== ENCOUNTER 2020-04-17 14:29 | Outpatient (CLI) | payer MEDICAID | END 2020-04-17 14:30 | disposition short-term general hospital (02) | LOC: EMS 14:29 | PROVIDERS: ATTEND Surgery | DX: M25.512 Pain in left shoulder (principal); X50.9XXA Other and unspecified overexertion or strenuous movements or postures, initial encounter; Y92.009 Unspecified place in unspecified non-institutional (private) residence as the place of occurrence of the external cause | CPT/HCPCS: A0425; A0427; A0999 ==

== ENCOUNTER 2020-08-30 13:09 | Emergency (ER) | payer MEDICAID ==
--- NOTE | 2020-08-30 15:43 | ED Physician Documentation ---
History of Present Illness - Stated complaint Stated Complaint: LFT LEG PX - Chief complaint Chief Complaint: Ext Problem - History obtained from History obtained from: Patient - History of Present Illness Timing: How many weeks ago (4) - Additonal information Additional information: 60-year-old female with chronic back pain and chronic opiate use who is a surv tyler of breast cancer and has a history of hypertension diverticulitis has developed some swelling in her left lower extremity was treated for cellulitis with 3 courses of antibiotic and she had some improvement in the swelling of her lower extremity. She has continued redness and swelling to the foot and her physician has asked her to come to the hospital to get a duplex venous exam done. The patient did not do this yesterday and she is come to the emergency department today to get this done as she does not think she can tolerate this without some type of pain management. 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: Breast cancer : None HEENT: Chronic vision loss Psych: Depression, Anxiety, ADD/ADHD, Claustrophobia Musculoskeletal: Osteoarthritis, Chronic back pain Derm: None - Past Surgical History Past Surgical History: Yes General: Appendectomy Ortho: Spine surgery /BUSINESS ACCOUNT MANAGER: Mastectomy - Present Medications Home Medications: Ambulatory Orders Medication Instructions Recorded Confirmed hydroCHLOROthiazide 25 mg PO DAILY 08/10/17 01/12/19 [Hydrochlorothiazide] Albuterol Sulfate [Proair 2 puffs INH Q4H PRN 03/02/18 01/12/19 Respiclick] Thyroid,Pork [[place] Thyroid] 120 mg PO QDAC 03/02/18 01/12/19 Venlafaxine HCl [Venlafaxine HCl 150 mg PO DAILY 03/02/18 12/30/18 ER] traZODone [Desyrel] 200 mg PO HS PRN 03/02/18 01/12/19 lisinopriL [Lisinopril] 5 mg PO DAILY 07/27/18 01/12/19 Cyclobenzaprine [Flexeril] 5 - 10 mg PO TID PRN 08/19/18 01/12/19 Ondansetron Odt [Zofran] 4 mg TL Q6H PRN #10 tablet 09/30/18 01/12/19 - Allergies Allergies/Adverse Reactions: Allergies Allergy/AdvReac Type Severity Reaction Status Date / Time adhesive tape Allergy Rash Verified 08/30/20 13:32 latex Allergy Rash Verified 08/30/20 13:32 tramadol Allergy Emesis Verified 08/30/20 13:32 gabapentin AdvReac Hallucinati Verified 08/30/20 13:32 ons hydrocodone bitartrate * AdvReac Itching Verified 08/30/20 13:32 [From Vicodin] - Social History Does the pt smoke?: No Smoking Status: Never smoker Does the pt drink ETOH?: No Does the pt have substance abuse?: No - Immunizations Immunizations are current?: Yes - POLST Patient has POLST: No POLST Status: Full Code PD ED PE NORMAL - Vitals Vital signs reviewed: Yes (hypertensive ) - General General: Alert and oriented X 3, No acute distress, Well developed/nourished - HEENT HEENT: Atraumatic, PERRL, EOMI - Respiratory Respiratory: No respiratory distress - Derm Derm: Normal color, Warm and dry - Extremities Extremities: No deformity, Other (There is hyperemia of the feet bilaterally worse on the left. There is mild swelling to the left foot and cap refill is slow bilaterally. Erythema extends to the mid calf on the left and to the mid foot on the right. ) - Neuro Neuro: Alert and oriented X 3, shipping weigher 2-12 intact, No motor deficit, No sensory deficit, Normal speech Eye Opening: Spontaneous Motor: Obeys Commands Verbal: Oriented GCS Score: 15 - Psych Psych: Normal mood, Normal affect Results - Vitals Vitals: Vital Signs - 24 hr 08/30/20 08/30/20 13:32 18:07 Temperature 36.9 C 36.6 C Heart Rate 97 93 Respiratory 18 20 Rate Blood Pressure 134/86 H 118/93 H O2 Saturation 96 97 Oxygen O2 Source Room air - Rads (name of study) Duplex exam Radiology: Prelim report reviewed (Impression: Exam is limited by inability to tolerate compression, body habitus, acoustic windows. No obvious left lower extremity DVT.), EMP read indepedently, See rad report Arterial exam Radiology: Prelim report reviewed (Preliminary report shows triphasic and biphasic waves to all of the vessels.) PD MEDICAL DECISION MAKING - ED course Complexity details: considered differential, d/w patient ED course: 60-year-old female with a history of chronic pain and pain seeking behavior is come to the emergency department today because she does not think she can tolerate a venous duplex exam on her lower extremities and believes she needs to be medicated for this. She is very tender to her calf on the left side and she does appear to have some poor capillary refill and we have done both venous and arterial exams. This was achieved by the use of IM Dilaudid. The patient initially got 1 mg of Dilaudid IM and when this was not adequate she received a second 2 mg dose. Her studies were negative and she is discharged home and before she is discharged she does ask for pain medication and we are not providing this for her. Departure - Departure Disposition: 01 Home, Self Care Clinical Impression: Pain of lower extremity Qualifiers: Laterality: left Qualified Code(s): M79.605 - Pain in left leg Condition: Stable Instructions: ED Edema Legs Bilateral Follow-Up: Kathleen Asher MD [Primary Care Provider] -
[2020-08-30] MEDS ORDERED: ONDANSETRON ODT 4 MG TABLET TL STA (15:44)
[2020-08-30] MEDS ORDERED: HYDROmorphone 1 MG/ML CARPUJECT IM STA ×2 (15:44→16:36)
[2020-08-30 18:08] VITALS: BP 118/93
--- NOTE | 2020-08-30 18:30 | Ultrasound Report ---
PROCEDURE: Duplex Ext Veins Left INDICATIONS: dusky swollen foot with poor cap refill TECHNIQUE: Real-time imaging, as well as color and pulse Doppler interrogation, were performed of the lower extr emity deep veins from the inguinal ligament to the popliteal fossa. COMPARISON: None. FINDINGS: Color and pulse Doppler demonstrate normal phasic intraluminal flow within the deep vessel s. There is normal augmentation response to distal compression maneuver. Portions of the catheter ve ssels are obscured. IMPRESSION: Exam is limited by inability to tolerate compression, body habitus, acoustic windows. No obvious left lower extremity DVT. Reviewed by: Jabier Estrada MD on 08/30/2020 6:29 PM PST Approved by: Jabier Estrada MD on 08/30/2020 6:29 PM PST Station ID: [id number]
--- NOTE | 2020-08-30 18:47 | Ultrasound Report ---
PROCEDURE: Duplex Lwr Ext Arterial LT INDICATIONS: dusky swollen foot with poor cap refill TECHNIQUE: Color and pulse Doppler interrogation was performed of the left lower extremity arterial system, with image documentation. Exam is limited by patient movement, pain during the examination, body habitus, and lower extremity e dalia. The proximal and mid EXPENDITURE REQUISITION CLERK/MEENA are not visualized. COMPARISON: Same day venous duplex exam. CT abdomen and pelvis with contrast 12/02/2018. FINDINGS: Common femoral artery: 112 cm/sec, with triphasic flow. Deep femoral profunda artery: 65 cm/sec, with biphasic flow. Proximal superficial femoral artery: 109 cm/sec, with triphasic flow. Mid superficial femoral artery: 87 cm/sec, with triphasic flow. Distal superficial femoral artery: 74 cm/sec, with triphasic flow. Popliteal artery: 50 cm/sec, with triphasic flow. Posterior tibial artery distally: 28 cm/sec, with biphasic flow. (Not well seen proximal and mid). Anterior tibial artery/dorsalis pedis: 36/42 cm/sec, with triphasic flow. (Not well seen proximal a nd mid). Barclay-scale imaging description: No significant plaque is identified. There is subcutaneous edema. IMPRESSION: Limited exam due to acoustic windows and pain during the examination. No obvious filling defect within the visualized portions or critical stenosis. Recommend continued clinical surveillance. If indicated repeat examination could be performed. Reviewed by: Jabier Estrada MD on 08/30/2020 6:46 PM [facility] Approved by: Jabier Estrada MD on 08/30/2020 6:46 PM PST Station ID: [id number]
== END 2020-08-30 19:11 | disposition home or self-care (01) ==
LOC: ED 13:09
DX: M79.662 Pain in left lower leg (principal); R60.0 Localized edema; I10 Essential (primary) hypertension; M54.9 Dorsalgia, unspecified; G89.29 Other chronic pain; Z79.891 Long term (current) use of opiate analgesic; Z08 Encounter for follow-up examination after completed treatment for malignant neoplasm; Z85.3 Personal history of malignant neoplasm of breast
CPT/HCPCS: 93926; 93971; 96372; 99284; J1170; Q0162

== ENCOUNTER 2021-01-04 11:44 | Outpatient (CLI) | payer MEDICAID | END 2021-01-04 11:45 | disposition home or self-care (01) | LOC: LAB 11:44 | PROVIDERS: ATTEND Internal Medicine | DX: E03.9 Hypothyroidism, unspecified (principal) | CPT/HCPCS: 36415; 84443 ==

== ENCOUNTER 2021-01-30 08:49 | Outpatient (CLI) | payer MEDICAID ==
[2021-01-30 09:11] LABS: CREATININE 0.8 mg/dL (0.4-1.0)
[2021-01-30] MEDS ORDERED: IOVERSOL 320 100 ML VIAL IVP ONE ×2 (09:17→12:07)
[2021-01-30] MEDS ORDERED: IOPAMIDOL-300 50 ML VIAL ONE (09:17)
[2021-01-30] MEDS ORDERED: IOPAMIDOL-300 50 ML VIAL PO ONE (12:07)
--- NOTE | 2021-01-30 16:40 | CT Report ---
PROCEDURE: Abdomen/Pelvis W INDICATIONS: INCISIONAL HERNIA, ABD CONTRAST: IV CONTRAST: Optiray 320 ml: 100 PO CONTRAST: Isovue 300 ml50 TECHNIQUE: After the administration of intravenous and oral contrast, 5 mm thick sections acquired from the diap hragms to the symphysis. 5 mm thick coronal and sagittal reformats were acquired. For radiation dos e reduction, the following was used: automated exposure control, adjustment of mA and/or kV accordin g to patient size. COMPARISON: CT abdomen pelvis 11/29/2018, 10/27/2018. FINDINGS: Image quality: There is metallic streak artifact from patient's surgical hardware in the spine. Mild motion artifact is also present. ABDOMEN: Lung bases: There is mild scarring within the left lingula inferiorly. Heart size is normal. Solid organs: Evaluation of the liver demonstrates no focal hepatic lesions. Gallbladder appears wit hin normal limits without calcified gallstones. Biliary system is non dilated. The spleen is normal in size. Pancreas enhances normally without peripancreatic fat stranding or fluid collections. No ad renal nodules. Kidneys demonstrate no hydronephrosis. Peritoneum and bowel: Bowel loops demonstrate normal wall thickness and caliber. There is colonic di verticulosis without acute diverticulitis. No free fluid or air. Nodes and vessels: No retroperitoneal or mesenteric adenopathy by size criteria. Aorta and inferior vena cava are normal in size. Miscellaneous: There is a large [place] ventral abdominal hernia containing loops of small and larg e bowel. The abdominal wall defect measures approximately 14.7 cm in transverse dimension by 12.5 cm in craniocaudal dimension. No evidence of associated bowel obstruction or strangulation. PELVIS: Genitourinary: Bladder wall thickness is normal. Miscellaneous: No inguinal hernias or adenopathy. Bones: No suspicious bony lesions. No vertebral body compression fractures. Multilevel postsurgical changes are demonstrated within the lower thoracic and lumbar spine status post posterior fixation. IMPRESSION: 1. Large [place] ventral abdominal hernia containing loops of small and large bowel demonstrated. No evidence of bowel obstruction or strangulation. Reviewed by: Selvin Quiroz MD on 01/30/2021 4:39 PM PDT Approved by: Selvin Quiroz MD on 01/30/2021 4:39 PM PDT Station ID: [id number]
== END 2021-01-30 08:50 | disposition home or self-care (01) ==
LOC: LAB 08:49
PROVIDERS: ATTEND Surgery
DX: K43.9 Ventral hernia without obstruction or gangrene (principal); K43.2 Incisional hernia without obstruction or gangrene
CPT/HCPCS: 36415; 74177; 82565; Q9967

== ENCOUNTER 2021-05-22 14:32 | Outpatient (CLI) | payer MEDICAID | END 2021-05-22 14:33 | disposition home or self-care (01) | LOC: LAB 14:32 | PROVIDERS: ATTEND Internal Medicine | DX: E03.9 Hypothyroidism, unspecified (principal) | CPT/HCPCS: 36415; 84443 ==

== ENCOUNTER 2021-11-10 19:09 | Outpatient (CLI) | payer MEDICAID | END 2021-11-10 19:10 | disposition critical access hospital (66) | LOC: EMS 19:09 | DX: R10.32 Left lower quadrant pain (principal); R11.0 Nausea; K46.9 Unspecified abdominal hernia without obstruction or gangrene | CPT/HCPCS: A0425; A0427; A0999 ==

== ENCOUNTER 2021-11-10 19:33 | Emergency (ER) | payer MEDICAID ==
[2021-11-10 20:04] LABS: BASOPHILS # (AUTO) 0.2 10^3/uL (0.0-0.1); BASOPHILS % (AUTO) 1.9 %; EOSINOPHILS # (AUTO) 0.4 10^3/uL (0.0-0.7); EOSINOPHILS % (AUTO) 3.4 %; HCT - HEMATOCRIT 47.4 % (37.0-47.0); HGB - HEMOGLOBIN 15.9 g/dL (12.0-16.0); LYMPHOCYTES # (AUTO) 3.1 10^3/uL (1.5-3.5); LYMPHOCYTES % (AUTO) 27.6 %; MEAN CORPUSCULAR HEMOGLOBIN 31.2 pg (27.0-31.0); MEAN CORPUSCULAR HGB CONC 33.5 g/dL (32.0-36.0); MEAN CORPUSCULAR VOLUME 92.9 fL (81.0-99.0); MEAN PLATELET VOLUME 9.9 fL (7.9-10.8); MONOCYTES % (AUTO) 9.1 %; NEUTROPHILS # (AUTO) 6.4 10^3/uL (1.5-6.6); NEUTROPHILS % (AUTO) 57.5 %; PLT - PLATELET COUNT 304 10^3/uL (130-450); WHITE BLOOD COUNT 11.1 x10^3/uL (4.8-10.8)
[2021-11-10 20:15] LABS: ALBUMIN 4.1 g/dL (3.2-5.5); ALBUMIN/GLOBULIN RATIO 1.1 (1.0-2.2); BILIRUBIN,TOTAL 0.7 mg/dL (0.2-1.0); CALCIUM 9.8 mg/dL (8.5-10.3); CREATININE 0.8 mg/dL (0.4-1.0); POTASSIUM 4.1 mmol/L (3.5-5.0); TOTAL PROTEIN 7.7 g/dL (6.7-8.2)
[2021-11-10] MEDS ORDERED: HYDROmorphone 1 MG/ML CARPUJECT IVP STA ×2 (20:34→22:08)
[2021-11-10] MEDS ORDERED: ONDANSETRON 4 MG/2 ML VIAL IVP STA (20:34)
--- NOTE | 2021-11-10 20:35 | ED Physician Documentation ---
<Juan F Lazaro R - Last Filed: 11/11/21 02:08> PD HPI ABD PAIN - Stated complaint Stated Complaint: ABD PAIN - Chief complaint Chief Complaint: Abd Pain PD PAST MEDICAL HISTORY - Present Medications Home Medications: Ambulatory Orders Medication Instructions Recorded Confirmed hydroCHLOROthiazide 25 mg PO DAILY 08/10/17 11/10/21 [Hydrochlorothiazide] Albuterol Sulfate [Proair 2 puffs INH Q4H PRN 03/02/18 11/10/21 Respiclick] Thyroid,Pork [[place] Thyroid] 120 mg PO QDAC 03/02/18 11/10/21 Venlafaxine HCl [Venlafaxine HCl 150 mg PO DAILY 03/02/18 11/10/21 ER] traZODone [Desyrel] 200 mg PO HS PRN 03/02/18 11/10/21 lisinopriL [Lisinopril] 10 mg PO DAILY 07/27/18 11/10/21 Cyclobenzaprine [Flexeril] 5 - 10 mg PO TID PRN 08/19/18 11/10/21 Ondansetron Odt [Zofran] 4 mg TL Q6H PRN #10 tablet 09/30/18 11/10/21 Amox/Clav 875/125 [Augmentin] 1 each PO Q12H #20 tablet 11/11/21 Ondansetron Odt [Zofran] 4 mg TL Q6H PRN #10 tablet 11/11/21 Oxycodone HCl/Acetaminophen 1 each PO Q6H PRN #10 tablet 11/11/21 [Percocet 5-325 mg Tablet] - Allergies Allergies/Adverse Reactions: Allergies Allergy/AdvReac Type Severity Reaction Status Date / Time adhesive tape Allergy Rash Verified 11/10/21 19:44 latex Allergy Rash Verified 11/10/21 19:44 tramadol Allergy Emesis Verified 11/10/21 19:44 gabapentin AdvReac Hallucinati Verified 11/10/21 19:44 ons hydrocodone bitartrate * AdvReac Itching Verified 11/10/21 19:44 [From Vicodin] Departure - Departure Disposition: 01 Home, Self Care Clinical Impression: Diverticulitis, Asymptomatic bacteriuria Condition: Stable Instructions: ED Diverticulitis Prescriptions: Amox/Clav 875/125 [Augmentin] 1 each PO Q12H #20 tablet Oxycodone HCl/Acetaminophen [Percocet 5-325 mg Tablet] 1 each PO Q6H PRN #10 tablet PRN Reason: pain Ondansetron Odt [Zofran] 4 mg TL Q6H PRN #10 tablet PRN Reason: Nausea / Vomiting Discharge Date/Time: 11/11/21 00:15 <Kolby Beltran M - Last Filed: 11/11/21 09:00> PD HPI ABD PAIN - History obtained from History obtained from: Patient, EMS - Additional information Additional information: 61-year-old woman with history of recurrent issues with diverticulitis. 2 years ago she had a partial colectomy, single and staged procedure. It was complicated by an incisional hernia which is symptomatic [facility] She has had left lower quadrant pain similar prior defect diverticulitis for last 2 weeks not associate with fevers or chills. She has been vomiting. Bowel movements have been normal. Pain is severe. Of note there were significant issues in the past with concerns for drug-seeking behavior. Review of Systems Ten Systems: 10 systems reviewed and negative Constitutional: denies: Fever, Chills Cardiac: denies: Chest pain / pressure, Palpitations Respiratory: denies: Dyspnea, Cough GI: reports: Abdominal Pain, Nausea, Vomiting. 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 : None HEENT: Chronic vision loss Psych: Depression, Anxiety, ADD/ADHD, Claustrophobia Musculoskeletal: Osteoarthritis, Chronic back pain Derm: None - Past Surgical History Past Surgical History: Yes General: Appendectomy Ortho: Spine surgery /RETURNED ITEM CLERK: Mastectomy - Social History Does the pt smoke?: No Smoking Status: Never smoker Does the pt drink ETOH?: No Does the pt have substance abuse?: No - Immunizations Immunizations are current?: Yes - POLST Patient has POLST: No POLST Status: Full Code PD ED PE NORMAL - Vitals Vital signs reviewed: Yes - General General: Alert and oriented X 3, Other (Appears uncomfortable) - HEENT HEENT: PERRL, EOMI - Neck Neck: Supple, no meningeal sign, No bony TTP - Cardiac Cardiac: RRR, No murmur - Respiratory Respiratory: No respiratory distress, Clear bilaterally - Abdomen Abdomen: Normal bowel sounds, Soft, Other (She is tender in the left lower quadrant without surgical signs, there is a nonreducible midline pelvic hernia with positive bowel sounds that is not particularly tender.) - Back Back: No CVA TTP, No spinal TTP - Derm Derm: Normal color, Warm and dry - Extremities Extremities: No edema, No calf tenderness / cord - Neuro Neuro: Alert and oriented X 3, Normal speech Results - Vitals Vitals: Vital Signs - 24 hr 11/10/21 11/10/21 11/11/21 19:36 22:07 00:08 Temperature 36.1 C L 35.9 C L Heart Rate 109 H 105 H 100 Respiratory 28 H 16 16 Rate Blood Pressure 152/102 H 133/102 H 187/98 H O2 Saturation 96 94 95 Oxygen O2 Source Room air - Labs Labs: Laboratory Tests 11/10/21 11/10/21 11/10/21 19:56 19:56 20:42 WBC 11.1 H RBC 5.10 Hgb 15.9 Hct 47.4 H MCV 92.9 MCH 31.2 H MCHC 33.5 RDW 13.0 Plt Count 304 MPV 9.9 Neut # (Auto) 6.4 Lymph # (Auto) 3.1 [place] # (Auto) 1.0 Eos # (Auto) 0.4 Baso # (Auto) 0.2 H Absolute Nucleated RBC 0.00 Nucleated RBC % 0.0 Sodium 138 Potassium 4.1 Chloride 103 Carbon Dioxide 23 Anion Gap 12.0 BUN 22 H Creatinine 0.8 Estimated GFR (MDRD) 73 L Glucose 142 H Calcium 9.8 Total Bilirubin 0.7 AST 27 ALT 41 Alkaline Phosphatase 114 Total Protein 7.7 Albumin 4.1 Globulin 3.6 Albumin/Globulin Ratio 1.1 Lipase 36 Urine Color YELLOW Urine Clarity HAZY Urine pH 6.0 Ur Specific [place] >=1.030 H Urine Protein 100 H Urine Glucose (UA) NEGATIVE Urine Ketones NEGATIVE Urine Occult Blood MODERATE H Urine Nitrite POSITIVE H Urine Bilirubin NEGATIVE Urine Urobilinogen 0.2 (NORMAL) Ur Leukocyte Esterase TRACE H Urine RBC 11-25 H Urine WBC >25 H Ur Squamous Epith Cells RARE Squamous Urine Bacteria Many H Ur Microscopic Review INDICATED Urine Culture Comments INDICATED Urine Opiates Screen POSITIVE H Ur Oxycodone Screen NEGATIVE Urine Methadone Screen NEGATIVE Ur Propoxyphene Screen NEGATIVE Ur Barbiturates Screen NEGATIVE Ur Tricyclics Screen NEGATIVE Ur Phencyclidine Scrn NEGATIVE Ur Amphetamine Screen NEGATIVE U Methamphetamines Scrn NEGATIVE U Benzodiazepines Scrn POSITIVE H Urine Cocaine Screen NEGATIVE U Cannabinoids Screen NEGATIVE PD MEDICAL DECISION MAKING - ED course ED course: 61yo woman with LLQ pain, S/O to overnight EDMD at shift change.
[2021-11-10 20:48] LABS: MUDS CUTOFF CONCENTRATIONS CUTOFF CONC BELOW:
[2021-11-10 20:55] LABS: BILIRUBIN,URINE NEGATIVE (NEGATIVE); GLUCOSE, URINE (UA) NEGATIVE (NEGATIVE); KETONES,URINE (UA) NEGATIVE (NEGATIVE); LEUKOCYTE ESTERASE, URINE TRACE (NEGATIVE); NITRITE,URINE POSITIVE (NEGATIVE); OCCULT BLOOD,URINE MODERATE (NEGATIVE); PROTEIN,URINE 100 mg/dL (NEGATIVE); UROBILINOGEN,URINE 0.2 (NORMAL) E.U./dL (NORMAL)
[2021-11-10 20:57] LABS: CLARITY,URINE HAZY (CLEAR)
[2021-11-10 21:08] LABS: AMPHETAMINE SCREEN,URINE NEGATIVE (NEGATIVE); BARBITURATE SCREEN,UR NEGATIVE (NEGATIVE); BENZODIAZEPINES SCREEN, URINE POSITIVE (NEGATIVE); COCAINE SCREEN URINE NEGATIVE (NEGATIVE); METHADONE SCREEN, URINE NEGATIVE (NEGATIVE); METHAMPHETAMINES SCREEN, URINE NEGATIVE (NEGATIVE); OPIATE SCREEN, URINE POSITIVE (NEGATIVE); OXYCODONE SCREEN, URINE NEGATIVE (NEGATIVE); PROPOXYPHENE SCREEN, URINE NEGATIVE (NEGATIVE); THC CANNABINOID SCREEN, URINE NEGATIVE (NEGATIVE); TRICYCLIC ANTIDEPRESSANT,URINE NEGATIVE (NEGATIVE)
[2021-11-10 21:10] LABS: SQUAMOUS EPITHELIAL CELL,UR RARE Squamous (<= Few); WBC,URINE >25 /HPF (0-5)
[2021-11-10 21:11] LABS: BACTERIA,URINE Many /HPF (None Seen)
[2021-11-10] MEDS ORDERED: IOVERSOL 320 50 ML VIAL ONE (21:12)
[2021-11-10] MEDS ORDERED: IOVERSOL 320 100 ML VIAL IVP ONE ×2 (21:13→23:04)
[2021-11-10] MEDS ORDERED: IOVERSOL 320 50 ML VIAL PO ONE (21:21)
[2021-11-10] MEDS ORDERED: PIPERACILLIN/TAZOBACTAM 3.375 GM in SODIUM CHLORIDE 0.9% MINIBAG 100 ML IV STA (21:52)
[2021-11-10] MEDS ORDERED: KETOROLAC 15 MG/ML VIAL IVP STA (22:08)
--- NOTE | 2021-11-10 23:26 | CT Report ---
PROCEDURE: Abdomen/Pelvis W INDICATIONS: IV and PO, left lower quadrant pain, hx surgery CONTRAST: IV CONTRAST: Optiray 320 ml: 100 PO CONTRAST: Optiray 320 ml50 TECHNIQUE: After the administration of nonionic contrast, 5 mm thick sections acquired from the diaphragms to th e symphysis. 5 mm thick coronal and sagittal reformats were acquired. For radiation dose reduction, the following was used: automated exposure control, adjustment of mA and/or kV according to patient size. COMPARISON: Prior CT abdomen/pelvis 11/29/2018 FINDINGS: Image quality: Excellent. ABDOMEN: Lung bases: Lung bases are clear. Heart size is normal. Solid organs: Liver and spleen are normal in size and enhancement and the liver demonstrates relativ chris prominent fatty infiltration. Gallbladder appears normal. Biliary system is non dilated. Pancr eas enhances normally. No adrenal nodules. Kidneys demonstrate normal size and enhancement, without hydronephrosis. Peritoneum and bowel: Bowel loops demonstrate normal wall thickness and caliber. No free fluid or a ir. Note is made of left-sided diverticulitis at the abdomen/pelvis junction best seen centered on C T series 3 image 46 where pericolonic edema and mucosal enhancement is relatively prominent on the le ft, without peridiverticular abscess. Nodes and vessels: No retroperitoneal or mesenteric adenopathy by size criteria. Aorta and inferior vena cava are normal in size. Miscellaneous: There is a large ventral hernia, chronic in appearance, containing large and small bow el at the lower abdomen and extending into the pelvis. No sign of incarceration or strangulation.. PELVIS: Genitourinary: Bladder wall thickness is normal. Miscellaneous: No inguinal hernias or adenopathy. Bones: No suspicious bony lesions. No vertebral body compression fractures. Extensive spine surger y noted crossing from the low thoracic spine into the lumbosacral spine. No acute trauma found. IMPRESSION: No acute herniation is found but a long-standing large ventral hernia extending from the lower abdomen into the pelvis is present exactly at the anterior midline. There is no associated ok dence of strangulation or incarceration of this large hernia. Acute/chronic diverticulitis is present at the abdomen/pelvis junction at the left descending colon, without peridiverticular abscess. Prominent fatty infiltration throughout the liver. No sign of ascites or varices at this time. Reviewed by: Kai Augustine MD on 11/10/2021 11:27 PM PST Approved by: Kai Augustine MD on 11/10/2021 11:27 PM PST Station ID: [id number]
[2021-11-11] MEDS ORDERED: oxyCODONE 5 MG TABLET PO STA (00:02)
--- NOTE | 2021-11-11 00:05 | ED Physician Documentation ---
ED Addendum - Addendum Addendum: CT read suggest diverticulitis. Reviewed results with patient at the bedside. She is sitting upright, comfortable appearing. She is agreeable to trial of oral antibiotics. It was also noted that her urine is concerning for an infection. However she does deny UTI symptoms such as dysuria, frequency, urinary odor and denies a history of UTIs in the past. She has received IV Zosyn in the emergency department. She will be prescribed antibiotics. Diagnosis: Acute diverticulitis, Asymptomatic bacteriuria, Ventral hernia Discharge Condition: Stable Discharged to Home
[2021-11-11 00:08] VITALS: BP 187/98
== END 2021-11-11 00:15 | disposition home or self-care (01) ==
LOC: EDUNIT# → ED 19:33
DX: K57.32 Diverticulitis of large intestine without perforation or abscess without bleeding (principal); R82.71 Bacteriuria; K43.9 Ventral hernia without obstruction or gangrene
CPT/HCPCS: 36415; 74177; 80053; 80306; 81001; 83690; 85025; 87086; 87181; 96365; 96375; 99284; A9270; J1170; Q9967; 81003

== ENCOUNTER 2021-11-22 08:16 | Outpatient (CLI) | payer MEDICAID | END 2021-11-22 08:17 | disposition short-term general hospital (02) | LOC: EMS 08:16 | DX: R10.30 Lower abdominal pain, unspecified (principal); R11.2 Nausea with vomiting, unspecified | CPT/HCPCS: A0425; A0427; A0999 ==

== ENCOUNTER 2021-11-25 20:04 | Outpatient (CLI) | payer MEDICAID | END 2021-11-25 20:05 | disposition critical access hospital (66) | LOC: EMS 20:04 | DX: R10.30 Lower abdominal pain, unspecified (principal) | CPT/HCPCS: A0425; A0429; A0999 ==

== ENCOUNTER 2021-11-25 20:33 | Emergency (ER) | payer MEDICAID ==
[2021-11-25] MEDS ORDERED: ONDANSETRON ODT 4 MG TABLET TL STA (21:05)
[2021-11-25 21:18] LABS: BASOPHILS # (AUTO) 0.1 10^3/uL (0.0-0.1); BASOPHILS % (AUTO) 1.8 %; EOSINOPHILS # (AUTO) 0.4 10^3/uL (0.0-0.7); EOSINOPHILS % (AUTO) 4.8 %; HCT - HEMATOCRIT 45.4 % (37.0-47.0); HGB - HEMOGLOBIN 15.7 g/dL (12.0-16.0); LYMPHOCYTES # (AUTO) 2.8 10^3/uL (1.5-3.5); LYMPHOCYTES % (AUTO) 35.6 %; MEAN CORPUSCULAR HEMOGLOBIN 32.2 pg (27.0-31.0); MEAN CORPUSCULAR HGB CONC 34.6 g/dL (32.0-36.0); MEAN PLATELET VOLUME 9.8 fL (7.9-10.8); MONOCYTES # (AUTO) 0.7 10^3/uL (0.0-1.0); MONOCYTES % (AUTO) 8.9 %; NEUTROPHILS # (AUTO) 3.8 10^3/uL (1.5-6.6); NEUTROPHILS % (AUTO) 48.4 %; PLT - PLATELET COUNT 287 10^3/uL (130-450); RED BLOOD COUNT 4.88 10^6/uL (4.20-5.40); WHITE BLOOD COUNT 7.9 x10^3/uL (4.8-10.8)
[2021-11-25] MEDS ORDERED: HYDROmorphone 1 MG/ML CARPUJECT IVP STA ×3 (21:28→23:11)
[2021-11-25 21:32] LABS: ALBUMIN 4.1 g/dL (3.2-5.5); ALBUMIN/GLOBULIN RATIO 1.2 (1.0-2.2); BILIRUBIN,TOTAL 0.3 mg/dL (0.2-1.0); CREATININE 0.9 mg/dL (0.4-1.0); POTASSIUM 3.6 mmol/L (3.5-5.0); TOTAL PROTEIN 7.6 g/dL (6.7-8.2)
[2021-11-25] MEDS ORDERED: IOVERSOL 320 100 ML VIAL IVP ONE ×2 (21:43→22:06)
--- NOTE | 2021-11-25 22:12 | ED Physician Documentation ---
PD HPI ABD PAIN - Stated complaint Stated Complaint: ABD PAIN - Chief complaint Chief Complaint: Abd Pain - History obtained from History obtained from: Patient - History of Present Illness Timing - onset: How many weeks ago (2) Timing - duration: Weeks (2) Timing - details: Gradual onset, Still present, Waxing and waning Quality: Cramping, Sharp, Pain Location: LLQ Radiation: Lower back Improved by: Laying still Worsened by: Moving, Breathing, Position, Palpation Associated symptoms: Nausea, Vomiting Similar symptoms before: Diagnosis (diverticulitis) Recently seen: Emergency Dept - Additional information Additional information: 61 y/o female with history of Diverticulitis and a large ventral hernia has recently had a bout of diverticulitis treated with Augmentin and her pain improved. She finished her antibiotic 5 days ago and now has increased pain. She has pain to the ventral hernia as well. She has plans to go to [place] to see a surgeon about fixing the hernia. 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 She has history of breast cancer, hypertension, ADHD and diverticulitis. Review of Systems Constitutional: denies: Fever Eyes: denies: Decreased vision Ears: denies: Ear pain Nose: denies: Congestion Throat: denies: Sore throat Cardiac: denies: Chest pain / pressure, Palpitations Respiratory: denies: Dyspnea, Cough GI: reports: Abdominal Pain, Nausea, Vomiting : denies: Dysuria, Frequency Skin: denies: Rash Musculoskeletal: denies: Neck pain, Back pain, Extremity pain Neurologic: denies: Generalized weakness, Focal weakness, Numbness PD PAST MEDICAL HISTORY - Past Medical History Cardiovascular: Hypertension, Murmur Respiratory: Asthma, Shortness of breath Neuro: Headaches, Motion sickness Endocrine/Autoimmune: HyPOthyroidism GI: Diverticulitis 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 : None HEENT: Chronic vision loss Psych: Depression, Anxiety, ADD/ADHD, Claustrophobia Musculoskeletal: Osteoarthritis, Chronic back pain Derm: None - Past Surgical History Past Surgical History: Yes General: Appendectomy Ortho: Spine surgery /DAMPER WORKER: Mastectomy - Present Medications Home Medications: Ambulatory Orders Medication Instructions Recorded Confirmed hydroCHLOROthiazide 25 mg PO DAILY 08/10/17 11/10/21 [Hydrochlorothiazide] Albuterol Sulfate [Proair 2 puffs INH Q4H PRN 03/02/18 11/10/21 Respiclick] Thyroid,Pork [[place] Thyroid] 120 mg PO QDAC 03/02/18 11/10/21 Venlafaxine HCl [Venlafaxine HCl 150 mg PO DAILY 03/02/18 11/10/21 ER] traZODone [Desyrel] 200 mg PO HS PRN 03/02/18 11/10/21 lisinopriL [Lisinopril] 10 mg PO DAILY 07/27/18 11/10/21 Cyclobenzaprine [Flexeril] 5 - 10 mg PO TID PRN 08/19/18 11/10/21 Ondansetron Odt [Zofran] 4 mg TL Q6H PRN #10 tablet 09/30/18 11/10/21 Amox/Clav 875/125 [Augmentin] 1 each PO Q12H #20 tablet 11/11/21 Ondansetron Odt [Zofran] 4 mg TL Q6H PRN #10 tablet 11/11/21 Oxycodone HCl/Acetaminophen 1 each PO Q6H PRN #10 tablet 11/11/21 [Percocet 5-325 mg Tablet] Amox/Clav 875/125 [Augmentin] 1 each PO Q12H #20 tablet 11/26/21 Ondansetron Odt [Zofran] 4 mg TL Q6H PRN #10 tablet 11/26/21 Oxycodone HCl/Acetaminophen 1 each PO Q6HR PRN #14 tablet 11/26/21 [Oxycodone-Acetaminophen 10-300] - Allergies Allergies/Adverse Reactions: Allergies Allergy/AdvReac Type Severity Reaction Status Date / Time adhesive tape Allergy Rash Verified 11/25/21 20:36 latex Allergy Rash Verified 11/25/21 20:36 tramadol Allergy Emesis Verified 11/25/21 20:36 gabapentin AdvReac Hallucinati Verified 11/25/21 20:36 ons hydrocodone bitartrate * AdvReac Itching Verified 11/25/21 20:36 [From Vicodin] - Social History Does the pt smoke?: No Smoking Status: Never smoker Does the pt drink ETOH?: No Does the pt have substance abuse?: No - Immunizations Immunizations are current?: Yes - POLST Patient has POLST: No POLST Status: Full Code PD ED PE NORMAL - Vitals Vital signs reviewed: Yes (hypertensive ) - General General: Alert and oriented X 3, Well developed/nourished, Other (61-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 The hernia defect is large firm tender but partially reducible. 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, No motor deficit, No sensory deficit, Normal speech Eye Opening: Spontaneous Motor: Obeys Commands Verbal: Oriented GCS Score: 15 - Psych Psych: Normal mood, Normal affect Results - Vitals Vitals: Vital Signs - 24 hr 11/25/21 11/25/21 11/26/21 20:36 22:40 00:00 Temperature 36.6 C Heart Rate 100 100 86 Respiratory 16 24 18 Rate Blood Pressure 170/80 H 134/72 H 154/89 H O2 Saturation 98 100 96 Oxygen O2 Source Room air - Labs Labs: Laboratory Tests 11/25/21 11/25/21 11/25/21 21:11 21:11 21:11 WBC 7.9 RBC 4.88 Hgb 15.7 Hct 45.4 MCV 93.0 MCH 32.2 H MCHC 34.6 RDW 13.0 Plt Count 287 MPV 9.8 Neut # (Auto) 3.8 Lymph # (Auto) 2.8 [place] # (Auto) 0.7 Eos # (Auto) 0.4 Baso # (Auto) 0.1 Absolute Nucleated RBC 0.00 Nucleated RBC % 0.0 Sodium 137 Potassium 3.6 Chloride 99 L Carbon Dioxide 27 Anion Gap 11.0 BUN 13 Creatinine 0.9 Estimated GFR (MDRD) 64 L Glucose 124 H Lactic Acid 2.6 H Calcium 10.0 Total Bilirubin 0.3 AST 38 ALT 51 Alkaline Phosphatase 116 Total Protein 7.6 Albumin 4.1 Globulin 3.5 Albumin/Globulin Ratio 1.2 Lipase 27 - Rads (name of study) CT ab pel with Radiology: Prelim report reviewed (Impression: 1. Colonic diverticulosis without definite acute diverticulitis. Large widemouth ventral abdominal hernia redemonstrated containing loops of small bowel and part of the transverse colon. No evidence of bowel obstruction or strangulation. Hepatic steatosis.), EMP read indepedently, See rad report PD MEDICAL DECISION MAKING - ED course Complexity details: reviewed results, re-evaluated patient, considered differential, d/w patient ED course: 61-year-old female presents to the emergency department with a history of diverticulitis having recently been treated with Augmentin. She finished her course of Augmentin about 5 days ago and began experiencing pain again about 3 days ago her pain is mounted on her and she is planning on a trip to [place] to see a surgeon about a second opinion for operation to close her hernia. She has had prior surgery to fix her diverticulitis which was successful. She was not having symptoms until recently. She recalls having symptoms improved with prolonged intravenous antibiotic administration and surgery. She has a low tolerance to pain and a high tolerance to opiates. She is administered some diet Dilaudid for pain control as well as some Zofran. Her scan does not show a definite diverticulitis. There is some inflammation in the scan very mild. My concern for this patient is that she is leaving on a road trip she has definite multiple comorbidities and we have provided antibiotic treatment for her as we will not have adequate outpatient follow-up over the next several days. We have given the patient a dose of Zosyn here in the emergency department and we will follow that up with Augmentin. The patient is grateful for these maneuvers. ultimately I suspect some of her pain is widening of the hernia defect. Departure - Departure Disposition: 01 Home, Self Care Clinical Impression: Diverticulitis large intestine w/o perforation or abscess w/o bleeding, Ventral hernia without obstruction or gangrene Condition: Stable Instructions: ED Diverticulitis, ED Diverticulosis Follow-Up: Kathleen Asher MD [Provider Admit Priv/Credential] - Prescriptions: Oxycodone HCl/Acetaminophen [Oxycodone-Acetaminophen 10-300] 1 each PO Q6HR PRN #14 tablet PRN Reason: Pain Amox/Clav 875/125 [Augmentin] 1 each PO Q12H #20 tablet Ondansetron Odt [Zofran] 4 mg TL Q6H PRN #10 tablet PRN Reason: Nausea / Vomiting Comments: Anny, today it looks like the diverticulitis is not overwhelming. I suspect it is just getting started and you may benefit from a short course of antibiotic. Antibiotic treatment is not the only treatment for diverticulitis. An important portion of this is to keep the fecal stream moving. Your pain is more likely related to your hernia. Follow-up with the surgeon as planned. Medications have been e-scribed to [facility] in [place]. Discharge Date/Time: 11/26/21 00:47
[2021-11-25] MEDS ORDERED: SODIUM CHLORIDE 0.9% 1,000 ML IV STA (22:30)
--- NOTE | 2021-11-25 22:42 | CT Report ---
PROCEDURE: Abdomen/Pelvis W INDICATIONS: LLQ pain CONTRAST: IV CONTRAST: Optiray 320 ml: 100 PO CONTRAST: *NO PO CONTRAST TECHNIQUE: After the administration of intravenous contrast, 5 mm thick sections acquired from the diaphragms to the symphysis. 5 mm thick coronal and sagittal reformats were acquired. For radiation dose reducti on, the following was used: automated exposure control, adjustment of mA and/or kV according to tim ent size. COMPARISON: CT abdomen pelvis 11/10/2021, 01/30/2021. FINDINGS: Image quality: There is metallic streak artifact from patient's surgical hardware within the spine. ABDOMEN: Lung bases: There is mild dependent atelectasis bilaterally. Heart size is normal. Solid organs: There is diffuse hypoattenuation of the liver consistent with fatty infiltration. Gallb ladder appears within normal limits without calcified gallstones. Biliary system is non dilated. The spleen is normal in size. Pancreas enhances normally without peripancreatic fat stranding or fluid c ollections. No adrenal nodules. Kidneys demonstrate no hydronephrosis. Peritoneum and bowel: Bowel loops demonstrate normal wall thickness and caliber. No pericecal inflam matory changes to suggest appendicitis. There is colonic diverticulosis without acute diverticulitis. No free fluid or air. Nodes and vessels: No retroperitoneal or mesenteric adenopathy by size criteria. Aorta and inferior vena cava are normal in size. Miscellaneous: A large widemouth ventral abdominal hernia is redemonstrated with herniated loops of s mall bowel and segmental herniation of the transverse colon. No evidence of bowel obstruction or stra ngulation. PELVIS: Genitourinary: The urinary bladder is partially distended. Miscellaneous: No inguinal hernias or adenopathy. Bones: No suspicious bony lesions. No vertebral body compression fractures. Extensive postsurgical changes are redemonstrated status post posterior fixation and fusion in the lower thoracic spine and throughout the lumbar spine. IMPRESSION: 1. Colonic diverticulosis without definite acute diverticulitis. 2. Large widemouth ventral abdominal hernia redemonstrated containing loops of small bowel and part o f the transverse colon. No evidence of bowel obstruction or strangulation. 3. Hepatic steatosis. Reviewed by: Selvin Kay MD on 11/25/2021 10:41 PM PDT Approved by: Selvin Kay MD on 11/25/2021 10:41 PM PDT Station ID: [id number]
[2021-11-25] MEDS ORDERED: ONDANSETRON 4 MG/2 ML VIAL IVP STA (22:50)
[2021-11-25] MEDS ORDERED: PIPERACILLIN/TAZOBACTAM 3.375 GM in SODIUM CHLORIDE 0.9% MINIBAG 100 ML IV STA (23:11)
[2021-11-26 00:35] VITALS: BP 154/89
== END 2021-11-26 00:47 | disposition home or self-care (01) ==
LOC: ED 20:33
DX: K57.32 Diverticulitis of large intestine without perforation or abscess without bleeding (principal); K43.9 Ventral hernia without obstruction or gangrene; I10 Essential (primary) hypertension
CPT/HCPCS: 36415; 74177; 80053; 83605; 83690; 85025; 87040; 96365; 96375; 96376; 99284; J1170; Q0162; Q9967

== ENCOUNTER 2021-12-14 09:27 | Outpatient (CLI) | payer MEDICAID ==
[2021-12-14 11:13] LABS: ESTIMATED AVERAGE GLUCOSE 117 mg/dL (70-100); HEMOGLOBIN A1c% 5.7 % (4.27-6.07)
== END 2021-12-14 09:28 | disposition home or self-care (01) ==
LOC: LAB 09:27
PROVIDERS: ATTEND Orthopaedic Surgery
DX: G56.01 Carpal tunnel syndrome, right upper limb (principal)
CPT/HCPCS: 36415; 83036

== ENCOUNTER 2021-12-16 04:58 | Outpatient (CLI) | payer MEDICAID | END 2021-12-16 04:59 | disposition critical access hospital (66) | LOC: EMS 04:58 | DX: R10.32 Left lower quadrant pain (principal); R11.2 Nausea with vomiting, unspecified | CPT/HCPCS: A0425; A0427; A0999 ==

== ENCOUNTER 2021-12-16 05:26 | Emergency (ER) | payer MEDICAID ==
[2021-12-16 05:57] LABS: BASOPHILS # (AUTO) 0.1 10^3/uL (0.0-0.1); EOSINOPHILS # (AUTO) 0.2 10^3/uL (0.0-0.7); EOSINOPHILS % (AUTO) 3.1 %; HCT - HEMATOCRIT 43.3 % (37.0-47.0); LYMPHOCYTES # (AUTO) 2.6 10^3/uL (1.5-3.5); LYMPHOCYTES % (AUTO) 42.2 %; MEAN CORPUSCULAR HEMOGLOBIN 31.6 pg (27.0-31.0); MEAN CORPUSCULAR HGB CONC 34.6 g/dL (32.0-36.0); MEAN CORPUSCULAR VOLUME 91.4 fL (81.0-99.0); MEAN PLATELET VOLUME 9.8 fL (7.9-10.8); MONOCYTES # (AUTO) 0.5 10^3/uL (0.0-1.0); MONOCYTES % (AUTO) 8.9 %; NEUTROPHILS # (AUTO) 2.6 10^3/uL (1.5-6.6); NEUTROPHILS % (AUTO) 43.5 %; PLT - PLATELET COUNT 315 10^3/uL (130-450); RED BLOOD COUNT 4.74 10^6/uL (4.20-5.40); RED CELL DISTRIBUTION WIDTH 12.7 % (12.0-15.0); WHITE BLOOD COUNT 6.1 x10^3/uL (4.8-10.8)
[2021-12-16 06:10] LABS: ALBUMIN 4.1 g/dL (3.2-5.5); ALBUMIN/GLOBULIN RATIO 1.1 (1.0-2.2); BILIRUBIN,TOTAL 1.2 mg/dL (0.2-1.0); CALCIUM 10.2 mg/dL (8.5-10.3); POTASSIUM 3.3 mmol/L (3.5-5.0); TOTAL PROTEIN 7.7 g/dL (6.7-8.2)
--- NOTE | 2021-12-16 06:20 | ED Physician Documentation ---
PD HPI ABD PAIN - Stated complaint Stated Complaint: ABD PX - Chief complaint Chief Complaint: Abd Pain - History obtained from History obtained from: Patient, EMS - History of Present Illness Timing - onset: How many days ago (3) Timing - details: Gradual onset, Constant, Waxing and waning Pain level now: 10 Quality: Pain Location: LLQ Improved by: Laying still Worsened by: Moving, Palpation Associated symptoms: Nausea. No: Fever, Vomiting, Diarrhea, Constipation, Melena, Hematochezia Recently seen: Emergency Dept - Additional information Additional information: BIBA. Patient states Its my diverticulitis, c/o LLQ pain x 3 days which she indicates is c/w previous episodes of diverticulitis. She has 60 previous [facility] ED visits on [facility] records. Review of Systems Constitutional: reports: Reviewed and negative Cardiac: reports: Reviewed and negative Respiratory: reports: Reviewed and negative GI: reports: Abdominal Pain, Nausea. denies: Vomiting, Constipation, Diarrhea : denies: Dysuria, Frequency PD PAST MEDICAL HISTORY - Past Medical History Past Medical History: Yes Cardiovascular: Hypertension, Murmur Respiratory: Asthma, Shortness of breath Neuro: Headaches, Motion sickness Endocrine/Autoimmune: HyPOthyroidism GI: Diverticulitis NUTRITIONAL SERVICES HOST: Breast cancer : None HEENT: Chronic vision loss Psych: Depression, Anxiety, ADD/ADHD, Claustrophobia Musculoskeletal: Osteoarthritis, Chronic back pain Derm: None - Past Surgical History Past Surgical History: Yes General: Appendectomy Ortho: Spine surgery /NUTRITIONAL SERVICES HOST: Mastectomy - Present Medications Home Medications: Ambulatory Orders Medication Instructions Recorded Confirmed hydroCHLOROthiazide 25 mg PO DAILY 08/10/17 12/16/21 [Hydrochlorothiazide] Albuterol Sulfate [Proair 2 puffs INH Q4H PRN 03/02/18 12/16/21 Respiclick] Thyroid,Pork [[place] Thyroid] 120 mg PO QDAC 03/02/18 12/16/21 Venlafaxine HCl [Venlafaxine HCl 150 mg PO DAILY 03/02/18 12/16/21 ER] traZODone [Desyrel] 200 mg PO HS PRN 03/02/18 12/16/21 lisinopriL [Lisinopril] 10 mg PO DAILY 07/27/18 12/16/21 Ciprofloxacin [Cipro] 500 mg PO Q12H #40 tablet 12/16/21 metroNIDAZOLE [Flagyl] 500 mg PO TID #30 tablet 12/16/21 oxyCODONE [Roxicodone] 5 mg PO Q4-6H PRN #10 tablet 12/16/21 - Allergies Allergies/Adverse Reactions: Allergies Allergy/AdvReac Type Severity Reaction Status Date / Time adhesive tape Allergy Rash Verified 12/16/21 05:36 latex Allergy Rash Verified 12/16/21 05:36 tramadol Allergy Emesis Verified 12/16/21 05:36 gabapentin AdvReac Hallucinati Verified 12/16/21 05:36 ons hydrocodone bitartrate * AdvReac Itching Verified 12/16/21 05:36 [From Vicodin] - Social History Does the pt smoke?: No Smoking Status: Never smoker Does the pt drink ETOH?: No Does the pt have substance abuse?: No - Immunizations Immunizations are current?: Yes - POLST Patient has POLST: No POLST Status: Full Code PD ED PE NORMAL - Vitals Vital signs reviewed: Yes - General General: Alert and oriented X 3, No acute distress, Well developed/nourished - Cardiac Cardiac: RRR, No murmur - Respiratory Respiratory: No respiratory distress, Clear bilaterally - Abdomen Abdomen: Soft, Non distended, Other (LLQ tenderness without rebound or guarding; strong component of distractability (does not react with palpation of LLQ when distracted with conversation or other commands such as EOMI)) - Back Back: No CVA TTP - Derm Derm: Normal color, Warm and dry Results - Vitals Vitals: Oxygen O2 Source Room air - Labs Labs: Laboratory Tests 12/16/21 12/16/21 05:54 05:54 WBC 6.1 RBC 4.74 Hgb 15.0 Hct 43.3 MCV 91.4 MCH 31.6 H MCHC 34.6 RDW 12.7 Plt Count 315 MPV 9.8 Neut # (Auto) 2.6 Lymph # (Auto) 2.6 [place] # (Auto) 0.5 Eos # (Auto) 0.2 Baso # (Auto) 0.1 Absolute Nucleated RBC 0.00 Nucleated RBC % 0.0 Sodium 134 L Potassium 3.3 L Chloride 97 L Carbon Dioxide 23 Anion Gap 14.0 H BUN 19 Creatinine 1.0 Estimated GFR (MDRD) 56 L Glucose 129 H Calcium 10.2 Total Bilirubin 1.2 H AST 33 ALT 53 Alkaline Phosphatase 107 Total Protein 7.7 Albumin 4.1 Globulin 3.6 Albumin/Globulin Ratio 1.1 Lipase 26 PD MEDICAL DECISION MAKING - ED course Complexity details: reviewed old records, reviewed results, re-evaluated patient, considered differential, d/w patient ED course: c/o LLQ pain which she says is c/w previous episodes of diverticulitis. She has extensive number of ED visits , typically for pain-related c/o. She was evaluated in [facility] ED 11/10/21 for similar c/o , CT at that time was c/w diverticulitis and she was prescribed augmentin. She was then seen in [place] ED 11/22. She initially insists this record (on MICHELLE form , as well as EMS report in [facility]) is incorrect; [place] has not been in an ED except [facility] recently. Later in ED stay, she says she called [facility] and they confirmed she was there and then she has recall of being there. However, she cannot recall if she was prescribed any medications nor what they were. MICHELLE form does reflect small amount of oxycodone was prescribed. I requested records but did not receive them during my shift; my intent was to see if antibiotics were prescribed , patient does not recall. Patient was then evaluated in [facility] ED 11/25 , again for abdominal pain. She was prescribed another course of augmentin; CT was repeated and did not show any evidence of diverticulitis. ED MD note from 11/25 indicates that patient was planning on leaving for [place] shortly after that day. When I ask patient if she did go to [place], she says she was going to go to [place] but did not go because of ongoing abdominal pain. I note she had outpatient blood tests (Hgb A1C) 2 days ago; she says this is for preoperative evaluation for an orthopedic procedure. Imaging not performed tonight, as her presentation is typical for many of her previous ED visits. This is a difficult situation, given frequent c/o severe pain that does not respond to most any medication except dilaudid (on my initial evaluation tonight, she requested that I give her pain medication other than what they gave me on the way (fentanyl given by EMS), because it didnt do anything (per patient), but that she typically reports severe pain when her tests, including CT A/P, are normal as when they evidence acute pathology. The risks of repeated imaging , specifically CT A/P , need to be weighed versus empiric treatment for possible diverticulitis. Historically, the patients reported level of pain has, unfortunately, not been a reliable indicator of pa thology. At this time, I think it is best to cover possible recurrence of diverticulitis (cipro, flagyl) rather than repeat CT . I also do not know if CT had been performed at [facility] 11/22 (she does not recall and, as above, records were not received despite request). She did exhibit some bargaining behavior regarding pain medication, asking for a higher number of tablets of oxycodone than I was willing to prescribe. Normal CBC, no concerning findings on ER abdominal panel. She is in NAD on initial evaluation as well as reevaluation prior to d/c. She has TTP on initial exam as noted above which is not noted when patient is distracted from the abdominal exam I am prescribing a short course of short-acting opioid pain medication for this patient. 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 I have discussed that the opioids are for short term therapy only, and will not be refilled from the ED Departure - Departure Disposition: 01 Home, Self Care Clinical Impression: Abdominal pain Qualifiers: Abdominal location: left lower quadrant Qualified Code(s): R10.32 - Left lower quadrant pain Condition: Good Instructions: ED Abdominal Pain Female Non-Specific Abdominal Pain Prescriptions: Ciprofloxacin [Cipro] 500 mg PO Q12H #40 tablet metroNIDAZOLE [Flagyl] 500 mg PO TID #30 tablet oxyCODONE [Roxicodone] 5 mg PO Q4-6H PRN #10 tablet PRN Reason: Pain Comments: prescriptions for cipro and flagyl (antibiotics) and oxycodone (narcotic pain medication) have been electronically submitted to [facility] in [place]. Please follow up with your primary care provider for reevaluation. I am prescribing a short course of narcotic pain medication for you. These are potentially dangerous and addictive medications that should be used carefully. These medications may constipate you. Take an [id number] stool softener (docusate) twice daily with plenty of water while taking these medications. If you go 24 hours without a bowel movement, take [id number] miralax, per package instructions. Do not drink or drive while taking these medications. If you received narcotic or sedating medications while in the emergency department, do not drive for 24 hours. Store this medication in a safe, secure place and out of reach of children. It is a violation of federal law to give or sell this medication to another person or to use in a manner other than prescribed. The ED will not refill narcotic prescriptions, including prescriptions lost or stolen. To dispose of unwanted medications: 1. [facility] [address] in [place] has a medication drop box. They accept prescription medications (in pill form) Friday through Friday 9:00 a.m. to 5:00 p.m. 2. The [facility] [employer] accepts prescription medications (in pill form only) for disposal year round. Call for more information. 3. Contact the [facility] for the next [facility] sponsored prescription drug collection event. , [phone], or [phone]; Discharge Date/Time: 12/16/21 07:56
[2021-12-16] MEDS ORDERED: CIPROFLOXACIN 250 MG TABLET PO STA (06:42)
[2021-12-16] MEDS ORDERED: HYDROmorphone 1 MG/ML CARPUJECT IVP STA (06:42)
[2021-12-16] MEDS ORDERED: metroNIDAZOLE 250 MG TABLET PO STA (06:42)
[2021-12-16] MEDS ORDERED: oxyCODONE 5 MG TABLET PO STA (07:34)
[2021-12-16 07:56] VITALS: BP 131/101
== END 2021-12-16 07:56 | disposition home or self-care (01) ==
LOC: EDUNIT# → ED 05:26
DX: R10.32 Left lower quadrant pain (principal)
CPT/HCPCS: 36415; 80053; 83690; 85025; 96374; 99284; A9270; J1170

== ENCOUNTER 2021-12-26 10:51 | Day surgery (SDC) | payer MEDICAID ==
--- NOTE | 2021-12-26 10:06 | ANESTHESIA ---
Pre-Anesthesia VS, & Labs - Diagnosis R CTS - Procedure R CTR Height: 5 ft 3 in - NPO >8 hours - Is Patient ?: No - Lab Results Lab results reviewed: Yes Home Medications and Allergies Home Medications: Ambulatory Orders Cyclobenzaprine [Flexeril] 10 mg PO Q8HR PRN 12/19/21 hydroCHLOROthiazide [Hydrochlorothiazide] 25 mg PO DAILY 08/10/17 Albuterol Sulfate [Proair Respiclick] 2 puffs INH Q4H PRN 03/02/18 Thyroid,Pork [[place] Thyroid] 120 mg PO QDAC 03/02/18 Venlafaxine HCl [Venlafaxine HCl ER] 150 mg PO DAILY 03/02/18 traZODone [Desyrel] 200 mg PO HS PRN 03/02/18 lisinopriL [Lisinopril] 10 mg PO DAILY 07/27/18 Cyclobenzaprine [Flexeril] 10 mg PO Q8HR PRN 12/19/21 Allergies/Adverse Reactions: Allergies Allergy/AdvReac Type Severity Reaction Status Date / Time adhesive tape Allergy Rash Verified 12/16/21 05:36 latex Allergy Rash Verified 12/16/21 05:36 tramadol Allergy Emesis Verified 12/16/21 05:36 gabapentin AdvReac Hallucinati Verified 12/16/21 05:36 ons hydrocodone bitartrate * AdvReac Itching Verified 12/16/21 05:36 [From Vicodin] Anes History & Medical History - Medical History Cardiovascular: reports: Hypertension, Murmur Pulmonary: reports: Asthma, Shortness of breath Gastrointestinal: reports: Diverticulitis Urinary: reports: None Neuro: reports: Headaches, Motion sickness Musculoskeletal: reports: Osteoarthritis, Fatigue, Chronic back pain Endocrine/Autoimmune: reports: HyPOthyroidism Blood Disorders: reports: None Skin: reports: None Smoking Status: Never smoker History of Cancer?: No - Surgical History General: reports: Appendectomy, Bowel surgery Gynecologic: reports: Mastectomy Orthopedic: reports: Spine surgery Exam General: Alert, Oriented x3, Cooperative Dental: WNL, Loose/Frag, Other (missing several) Mouth Openin Fingerbreadth Neck Mobility: Normal Mallampati classification: II Thyromental Distance: less than 4 cm Respiratory: Lungs clear, Normal breath sounds, No respiratory distress Cardiovascular: Regular rate (state hx of irreg hr, "not AF") Neurological: Normal speech Mental/Cognitive Status: Alert/Oriented X3, Normal for patient Cognitive Status: Within normal limits Plan Anesthesia Type: MAC Consent for Procedure(s) Verified and Reviewed: Yes Code Status: Attempt Resuscitation ASA classification: 3-Severe systemic disease Is this case an emergency?: No
[~2021-12-26 10:51] MED LIST: ACETAMINOPHEN 500 MG TABLET PO ONE; CELECOXIB 100 MG CAPSULE PO ONE; LIDOCAINE MPF 2%-EPI 1:200000 20 ML VIAL ONE; MIDAZOLAM 2 MG/2 ML VIAL ONE; PROPOFOL 500 MG/50 ML 500 MG/50 ML VIAL ONE; fentaNYL 100 MCG/2 ML VIAL ONE
[2021-12-26] MEDS ORDERED: LACTATED RINGERS 1,000 ML IV ONE ×2 (11:12→12:26)
[2021-12-26] MEDS ORDERED: oxyCODONE 5 MG TABLET PO PRN (11:15)
[2021-12-26] MEDS ORDERED: KETOROLAC 15 MG/ML VIAL IVP STA (11:15)
[2021-12-26] MEDS ORDERED: ACETAMINOPHEN 500 MG TABLET PO ONE (11:19)
[2021-12-26] MEDS ORDERED: CELECOXIB 100 MG CAPSULE PO ONE (11:19)
[2021-12-26] MEDS ORDERED: LIDOCAINE MPF 2%-EPI 1:200000 10 ML VIAL SUBQ ONE (11:58)
[2021-12-26] MEDS ORDERED: BUPIVACAINE 0.25% PF 30 ML VIAL SUBQ ONE (11:58)
[2021-12-26] MEDS ORDERED: BUPIVACAINE 0.25% PF 30 ML VIAL ONE (12:01)
[2021-12-26] MEDS ORDERED: fentaNYL 100 MCG/2 ML VIAL ONE (12:06)
--- NOTE | 2021-12-26 12:38 | OPERATIVE REPORT ---
Operative Report - General Procedure Date: 12/26/21 Planned Procedure: Right carpal tunnel release Pre-Op Diagnosis: Right carpal tunnel syndrome Procedure Performed: Right carpal tunnel release, CPT 91137 Post Op Diagnosis: Same as preoperative diagnosis - Procedure Note Primary Surgeon: Matti Lerner MD Secondary Surgeon: Margarette Ray PAC Anesthesia Provider: Lisa Frazier CRNA Anesthesia Technique: MAC Estimated Blood Loss (mL): 5 Indications: This is a 61-year-old woman with bilateral hand numbness in the median nerve distribution for several months. She has positive physical findings and decreased two-point discrimination. She has good motion to her wrist and forearms. She has no associated abnormalities contributing to carpal tunnel such as diabetes. Findings: The carpal tunnel had a nonspecific tenosynovitis, median nerve intact perhaps slight atrophy beneath the transverse carpal ligament. Complications: None - Other Other Information/Narrative: The patient was brought to the operating room and placed in a supine position. The right arm was placed in a arm extension table. A pneumatic tourniquet had been applied to the proximal right arm over cast padding. The right upper extremity was prepped and draped in a sterile manner in the usual fashion. A timeout procedure was performed by the entire operating room team and all were in agreement. 8 cc of 2% lidocaine with epinephrine was injected about the right carpal tunnel using a volar approach just proximal to the wrist flexor crease, ulnar to the palmaris longus. An additional amount was injected subcutaneously. A longitudinal incision was made in line with the third webspace. The incision began just distal to the wrist flexor crease and extended for 2.5 cm. The subcutaneous tissue and palmar aponeurosis were divided in line with the incision. The transverse carpal ligament was identified proximally and was incised. A blunt obturator was inserted beneath the transverse carpal ligament. The transverse carpal ligament was then divided from proximal to distal under direct visualization. The transverse carpal ligament was divided proximally with blunt tip scissors to achieve a full release of the carpal tunnel. The median nerve was inspected. The wound was irrigated. The skin was closed with interrupted 4-0 nylon vertical mattress suture. A bulky hand dressing was applied to the left hand and wrist with mild compression. A pneumatic tourniquet was not utilized during the procedure. Hemostasis was achieved with letter cautery. The patient tolerated procedure wellA physician customer service assistant was utilized help with retraction of vital structures, incision closure and dressing
[2021-12-26 12:42] VITALS: BP 118/84
--- NOTE | 2021-12-26 14:17 | ANESTHESIA POST OP EVALUATION ---
Anesthesia Post Eval - Post Anesthesia Eval Vitals: Last Vital Signs Temp 36.7 C 12/26/21 12:26 Pulse 91 12/26/21 12:42 Resp 18 12/26/21 12:42 BP 118/84 H 12/26/21 12:42 Pulse Ox 98 12/26/21 12:42 CV Function Including HR & BP: Stable Pain Control: Satisfactory Nausea & Vomiting: Negative Mental Status: Baseline Respiratory Status: Airway Patent Hydration Status: Satisfactory Anesthesia Complications: None
== END 2021-12-26 10:52 | disposition home or self-care (01) ==
LOC: SDS 10:51
PROVIDERS: ATTEND Orthopaedic Surgery
DX: G56.01 Carpal tunnel syndrome, right upper limb (principal); J45.909 Unspecified asthma, uncomplicated
CPT/HCPCS: 64721; A9270; J7120

== ENCOUNTER 2022-04-03 14:11 | Outpatient (CLI) | payer MEDICAID | END 2022-04-03 14:12 | disposition critical access hospital (66) | LOC: EMS 14:11 | DX: R10.84 Generalized abdominal pain (principal); R11.0 Nausea | CPT/HCPCS: A0425; A0427; A0999 ==

== ENCOUNTER 2022-04-03 14:39 | Emergency (ER) | payer MEDICAID ==
[2022-04-03 15:21] LABS: BASOPHILS # (AUTO) 0.1 10^3/uL (0.0-0.1); BASOPHILS % (AUTO) 1.6 %; EOSINOPHILS # (AUTO) 0.3 10^3/uL (0.0-0.7); HCT - HEMATOCRIT 46.8 % (37.0-47.0); HGB - HEMOGLOBIN 16.2 g/dL (12.0-16.0); LYMPHOCYTES # (AUTO) 3.3 10^3/uL (1.5-3.5); LYMPHOCYTES % (AUTO) 38.3 %; MEAN CORPUSCULAR HEMOGLOBIN 31.8 pg (27.0-31.0); MEAN CORPUSCULAR HGB CONC 34.6 g/dL (32.0-36.0); MEAN CORPUSCULAR VOLUME 91.9 fL (81.0-99.0); MEAN PLATELET VOLUME 9.9 fL (7.9-10.8); MONOCYTES # (AUTO) 0.7 10^3/uL (0.0-1.0); MONOCYTES % (AUTO) 7.9 %; NEUTROPHILS # (AUTO) 4.1 10^3/uL (1.5-6.6); NEUTROPHILS % (AUTO) 47.9 %; PLT - PLATELET COUNT 291 10^3/uL (130-450); RED BLOOD COUNT 5.09 10^6/uL (4.20-5.40); RED CELL DISTRIBUTION WIDTH 12.7 % (12.0-15.0); WHITE BLOOD COUNT 8.6 x10^3/uL (4.8-10.8)
[2022-04-03 15:36] LABS: ALBUMIN 4.1 g/dL (3.2-5.5); ALBUMIN/GLOBULIN RATIO 1.2 (1.0-2.2); BILIRUBIN,TOTAL 0.6 mg/dL (0.2-1.0); CALCIUM 10.3 mg/dL (8.5-10.3); CREATININE 0.8 mg/dL (0.4-1.0); POTASSIUM 3.5 mmol/L (3.5-5.0); TOTAL PROTEIN 7.4 g/dL (6.7-8.2)
[2022-04-03] MEDS ORDERED: HYDROmorphone 1 MG/ML CARPUJECT IVP STA (15:52)
--- NOTE | 2022-04-03 15:55 | ED Physician Documentation ---
History of Present Illness - Stated complaint Stated Complaint: ABD PX/NAUSEA - Chief complaint Chief Complaint: Abd Pain - History obtained from History obtained from: Patient - Additonal information Additional information: The patient comes to the emergency department chief complaint of lower abdominal pain and left-sided abdominal pain that have been worse over the last couple of days. She has a longstanding history of a very large lower abdominal wall hernia and feels as though this is more painful than usual. She also has a history of diverticulosis/diverticulitis and feels like this may be acting up as well. She denies any nausea or vomiting. No change in her stools. She does states she took a fall yesterday and that her neck feels sore. No focal neurologic deficits since. No other complaints at this time. Review of Systems Ten Systems: 10 systems reviewed and negative Constitutional: reports: Reviewed and negative Eyes: reports: Reviewed and negative Ears: reports: Reviewed and negative Nose: reports: Reviewed and negative Throat: reports: Reviewed and negative Cardiac: reports: Reviewed and negative Respiratory: reports: Reviewed and negative GI: reports: Abdominal Pain : reports: Reviewed and negative Skin: reports: Reviewed and negative Musculoskeletal: reports: Reviewed and negative Neurologic: reports: Reviewed and negative Psychiatric: reports: Reviewed and negative Endocrine: reports: Reviewed and negative Immunocompromised: reports: Reviewed and negative PD PAST MEDICAL HISTORY - Past Medical History Past Medical History: Yes Cardiovascular: Hypertension, Murmur Respiratory: Asthma, Shortness of breath Neuro: Headaches, Motion sickness Endocrine/Autoimmune: HyPOthyroidism GI: Diverticulitis SOCIAL SERVICE DIRECTOR: Breast cancer : None HEENT: Chronic vision loss Psych: Depression, Anxiety, ADD/ADHD, Claustrophobia Musculoskeletal: Osteoarthritis, Fatigue, Chronic back pain Derm: None - Past Surgical History Past Surgical History: Yes General: Appendectomy, Bowel surgery Ortho: Spine surgery /SOCIAL SERVICE DIRECTOR: Mastectomy - Present Medications Home Medications: Ambulatory Orders Medication Instructions Recorded Confirmed hydroCHLOROthiazide 25 mg PO DAILY 08/10/17 12/26/21 [Hydrochlorothiazide] Albuterol Sulfate [Proair 2 puffs INH Q4H PRN 03/02/18 12/26/21 Respiclick] Thyroid,Pork [[place] Thyroid] 120 mg PO QDAC 03/02/18 12/26/21 Venlafaxine HCl [Venlafaxine HCl 150 mg PO DAILY 03/02/18 12/19/21 ER] traZODone [Desyrel] 200 mg PO HS PRN 03/02/18 12/19/21 lisinopriL [Lisinopril] 10 mg PO DAILY 07/27/18 12/19/21 Ciprofloxacin [Cipro] 500 mg PO Q12H #40 tablet 12/16/21 12/19/21 Cyclobenzaprine [Flexeril] 10 mg PO Q8HR PRN 12/19/21 12/19/21 oxyCODONE [Roxicodone] 5 mg PO Q4-6H #6 tablet 12/26/21 - Allergies Allergies/Adverse Reactions: Allergies Allergy/AdvReac Type Severity Reaction Status Date / Time adhesive tape Allergy Rash Verified 04/03/22 14:58 latex Allergy Rash Verified 04/03/22 14:58 tramadol Allergy Emesis Verified 04/03/22 14:58 gabapentin AdvReac Hallucinati Verified 04/03/22 14:58 ons hydrocodone bitartrate * AdvReac Itching Verified 04/03/22 14:58 [From Vicodin] - Social History Does the pt smoke?: No Smoking Status: Never smoker Does the pt drink ETOH?: No Does the pt have substance abuse?: No - Immunizations Immunizations are current?: Yes - POLST Patient has POLST: No POLST Status: Full Code PD ED PE NORMAL - Vitals Vital signs reviewed: Yes - General General: Alert and oriented X 3, No acute distress, Well developed/nourished - HEENT HEENT: Atraumatic, PERRL, EOMI, Moist mucous membranes - Neck Neck: Supple, no meningeal sign - Cardiac Cardiac: RRR, No murmur, Strong equal pulses - Respiratory Respiratory: No respiratory distress, Clear bilaterally - Abdomen Abdomen: Soft, Other (Large, soft low abdominal wall hernia which is not firm. Moderate tenderness. Moderate left lower quadrant tenderness, no rebound or guarding. 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, Normal speech - Psych Psych: Normal mood, Normal affect Results - Vitals Vitals: Oxygen O2 Source Room air - Labs Labs: Laboratory Tests 04/03/22 04/03/22 15:16 15:16 WBC 8.6 RBC 5.09 Hgb 16.2 H Hct 46.8 MCV 91.9 MCH 31.8 H MCHC 34.6 RDW 12.7 Plt Count 291 MPV 9.9 Neut # (Auto) 4.1 Lymph # (Auto) 3.3 [place] # (Auto) 0.7 Eos # (Auto) 0.3 Baso # (Auto) 0.1 Absolute Nucleated RBC 0.00 Nucleated RBC % 0.0 Sodium 138 Potassium 3.5 Chloride 102 Carbon Dioxide 25 Anion Gap 11.0 BUN 19 Creatinine 0.8 Estimated GFR (MDRD) 73 L Glucose 103 H Calcium 10.3 Total Bilirubin 0.6 AST 50 H ALT 70 H Alkaline Phosphatase 105 Total Protein 7.4 Albumin 4.1 Globulin 3.3 Albumin/Globulin Ratio 1.2 Lipase 27 PD MEDICAL DECISION MAKING - ED course Complexity details: reviewed results, re-evaluated patient, considered differential, d/w patient ED course: The patient was worked up with labs and CT of the abdomen and pelvis. She did receive fentanyl in route with the medics and stated it did not really help her pain. She informed me that she was allergic to tramadol and hydrocodone. Pt was given a dose of dilaudid and stated that it only helped for a short time. Her CT showed no diverticulitis, no incarceration and no other acute findings. I d/w pt that I am not going to prescribe oxycodone for her chronic condition. She has seen a pain specialist before, and states that her PCP "can't find anyone" to take her, and won't prescribe narcotics herself. We have discussed other ways to manage the pain, as well as the usual indications for return. Departure - Departure Disposition: 01 Home, Self Care Clinical Impression: Abdominal pain Qualifiers: Abdominal location: lower abdomen, unspecified Qualified Code(s): R10.30 - Lower abdominal pain, unspecified Condition: Stable Instructions: ED Abdominal Pain Female Non-Specific Abdominal Pain Comments: The CT scan of your abdomen and pelvis does not show any acute issues. You do not have diverticulitis. You do still have diverticuli but they are not inflamed. You continue to have the large abdominal hernia and this may be the source of your pain. It is important that your stools remain soft so that you do not cause her self further pain by having to strain to have a bowel movement. As such, it is best to avoid narcotic pain medication. Please follow-up with your primary care physician if you continue to have abdominal pain. There is no evidence of a serious neck injury today. Discharge Date/Time: 04/03/22 19:20
--- NOTE | 2022-04-03 17:45 | CT Report ---
PROCEDURE: Abdomen/Pelvis W INDICATIONS: LLQ pain CONTRAST: IV CONTRAST: Optiray 320 ml: 100 PO CONTRAST: *NO PO CONTRAST TECHNIQUE: After the administration of IV contrast, 5 mm thick sections acquired from the diaphragms to the symp hysis. 5 mm thick coronal and sagittal reformats were acquired. For radiation dose reduction, the f ollowing was used: automated exposure control, adjustment of mA and/or kV according to patient size. COMPARISON: 11/25/2021 CT examination FINDINGS: Image quality: Excellent. ABDOMEN: Lung bases: Incompletely visualized density within the left anterior lung base measuring roughly 12 mm, new since the prior examination. Lung bases are otherwise clear. Heart size is normal. Solid organs: Liver is enlarged, and demonstrates diffusely decreased density. No focal mass. Spleen is within normal limits. Gallbladder Biliary system is non dilated. Pancreas enhances normally . No adrenal nodules. Kidneys demonstrate normal size and enhancement, without hydronephrosis. Peritoneum and bowel: Diverticulosis of the descending and sigmoid colon. No evidence of acute diver ticulitis. Bowel loops demonstrate otherwise normal wall thickness and caliber. No free fluid or air . Appendix is not seen. No evidence of appendicitis. Nodes and vessels: No retroperitoneal or mesenteric adenopathy by size criteria. Aorta and inferior vena cava are normal in size. Miscellaneous: Anterior abdominal pelvic wall hernia containing small and large bowel loops is presen t, as before, measuring 18.5 cm transverse. No evidence of associated bowel strangulation, nor obstru ction. PELVIS: Genitourinary: Bladder wall thickness is normal. Miscellaneous: No inguinal hernias or adenopathy. Bones: No suspicious bony lesions. Thoracolumbar spinal fusion hardware is present, as before. No v ertebral body compression fractures. There is mild enlargement and moderate calcification of the pro ximal hamstring tendons bilaterally. IMPRESSION: 1. No acute process. 2. Incompletely visualized left lung base density, new since the prior examination. Initial further a ssessment with nonemergent outpatient follow-up chest CT with intravenous contrast is recommended. 3. No change in abdominal pelvic wall hernia containing small and large bowel loops, without evidence of associated strangulation, nor obstruction. 4. Appendix not seen. No evidence of appendicitis. 5. Hepatic steatosis. 6.Chronic bilateral hamstring tendinopathy. Reviewed by: Candis Clements MD on 04/03/2022 5:44 PM PDT Approved by: Candis Clements MD on 04/03/2022 5:44 PM PDT Station ID: [id number]
[2022-04-03] MEDS ORDERED: oxyCODONE 5 MG TABLET PO STA (19:14)
[2022-04-03 19:21] VITALS: BP 120/65
== END 2022-04-03 19:20 | disposition home or self-care (01) ==
LOC: EDUNIT# → ED 14:39
DX: R10.32 Left lower quadrant pain (principal); I10 Essential (primary) hypertension
CPT/HCPCS: 36415; 74177; 80053; 83690; 85025; 96374; 99282; 99284; A9270; J1170; Q9967

== ENCOUNTER 2022-05-03 14:17 | Outpatient (CLI) | payer MEDICAID | END 2022-05-03 14:18 | disposition critical access hospital (66) | LOC: EMS 14:17 | DX: R52 Pain, unspecified (principal); L03.90 Cellulitis, unspecified; R06.02 Shortness of breath; R11.0 Nausea | CPT/HCPCS: A0425; A0427; A0999 ==

== ENCOUNTER 2022-06-06 07:58 | Outpatient (CLI) | payer MEDICAID | END 2022-06-06 07:59 | disposition home or self-care (01) | LOC: DI 07:58 | PROVIDERS: ATTEND Internal Medicine | DX: I08.0 Rheumatic disorders of both mitral and aortic valves (principal); I10 Essential (primary) hypertension | CPT/HCPCS: 93306 ==

== ENCOUNTER 2022-06-23 12:10 | Outpatient (CLI) | payer MEDICAID | END 2022-06-23 12:11 | disposition critical access hospital (66) | LOC: EMS 12:10 | DX: R06.09 Other forms of dyspnea (principal); R53.83 Other fatigue; R07.9 Chest pain, unspecified; R60.0 Localized edema | CPT/HCPCS: A0425; A0427; A0999 ==

== ENCOUNTER 2022-07-08 15:28 | Outpatient (CLI) | payer MEDICAID | END 2022-07-08 15:29 | disposition short-term general hospital (02) | LOC: EMS 15:28 | DX: R10.9 Unspecified abdominal pain (principal); K43.9 Ventral hernia without obstruction or gangrene; R11.0 Nausea; R63.0 Anorexia | CPT/HCPCS: A0425; A0427; A0999 ==

== ENCOUNTER 2022-08-17 12:31 | Emergency (ER) | payer MEDICAID ==
[2022-08-17 12:46] VITALS: BP 160/78
[2022-08-17] MEDS ORDERED: HYDROmorphone 1 MG/ML CARPUJECT IVP STA (12:53)
[2022-08-17] MEDS ORDERED: ONDANSETRON 4 MG/2 ML VIAL IVP STA (12:53)
[2022-08-17] MEDS ORDERED: SODIUM CHLORIDE 0.9% 1,000 ML IV STA (12:53)
[2022-08-17 12:55] LABS: BASOPHILS # (AUTO) 0.1 10^3/uL (0.0-0.1); EOSINOPHILS # (AUTO) 0.3 10^3/uL (0.0-0.7); EOSINOPHILS % (AUTO) 3.3 %; HCT - HEMATOCRIT 40.9 % (37.0-47.0); HGB - HEMOGLOBIN 13.4 g/dL (12.0-16.0); LYMPHOCYTES # (AUTO) 1.7 10^3/uL (1.5-3.5); LYMPHOCYTES % (AUTO) 19.3 %; MEAN CORPUSCULAR HEMOGLOBIN 29.1 pg (27.0-31.0); MEAN CORPUSCULAR HGB CONC 32.8 g/dL (32.0-36.0); MEAN CORPUSCULAR VOLUME 88.9 fL (81.0-99.0); MEAN PLATELET VOLUME 10.2 fL (7.9-10.8); MONOCYTES # (AUTO) 0.7 10^3/uL (0.0-1.0); MONOCYTES % (AUTO) 7.7 %; NEUTROPHILS % (AUTO) 68.4 %; PLT - PLATELET COUNT 267 10^3/uL (130-450); RED CELL DISTRIBUTION WIDTH 13.3 % (12.0-15.0); WHITE BLOOD COUNT 8.7 x10^3/uL (4.8-10.8)
--- NOTE | 2022-08-17 12:58 | ED Physician Documentation ---
History of Present Illness - Stated complaint Stated Complaint: L LOWER QUAD PX - Chief complaint Chief Complaint: Abd Pain - Additonal information Additional information: 62-year-old female presents the emergency department for what she believes to be diverticulitis. She reports that 3 days ago she developed sudden severe left lower quadrant abdominal pain. Some nausea and vomiting. No black bloody or mucoid stools. She states that she has had diverticulitis in the past that has felt like this. She does report a remote history of diverticulitis requiring surgical intervention with what sounds like partial bowel resection and a nastomosis. On presentation she appears very uncomfortable and in pain. She does have a very large lower midline hernia that is unchanged Review of Systems Constitutional: denies: Fever, Chills Respiratory: reports: Reviewed and negative GI: reports: Abdominal Pain, Nausea, Vomiting. 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 : None HEENT: Chronic vision loss Psych: Depression, Anxiety, ADD/ADHD, Claustrophobia Musculoskeletal: Osteoarthritis, Fatigue, Chronic back pain Derm: None - Past Surgical History Past Surgical History: Yes General: Appendectomy, Bowel surgery Ortho: Spine surgery /COOLING SYSTEM OPERATOR: Mastectomy - Present Medications Home Medications: Ambulatory Orders Medication Instructions Recorded Confirmed hydroCHLOROthiazide 25 mg PO DAILY 08/10/17 12/26/21 [Hydrochlorothiazide] Albuterol Sulfate [Proair 2 puffs INH Q4H PRN 03/02/18 12/26/21 Respiclick] Thyroid,Pork [[place] Thyroid] 120 mg PO QDAC 03/02/18 12/26/21 Venlafaxine HCl [Venlafaxine HCl 150 mg PO DAILY 03/02/18 12/19/21 ER] traZODone [Desyrel] 200 mg PO HS PRN 03/02/18 12/19/21 lisinopriL [Lisinopril] 10 mg PO DAILY 07/27/18 12/19/21 Ciprofloxacin [Cipro] 500 mg PO Q12H #40 tablet 12/16/21 12/19/21 Cyclobenzaprine [Flexeril] 10 mg PO Q8HR PRN 12/19/21 12/19/21 oxyCODONE [Roxicodone] 5 mg PO Q4-6H #6 tablet 12/26/21 Naproxen 500 mg PO BID 7 Days #14 tab 04/27/22 cephALEXin [Keflex] 500 mg PO QID #28 cap 04/27/22 oxyCODONE [Roxicodone] 5 mg PO Q6H PRN #12 tablet 04/27/22 Furosemide [Lasix] 20 mg PO DAILY 7 Days #7 tablet 05/01/22 Potassium Chloride [K-Dur] 20 meq PO DAILY #7 tablet 05/01/22 Amox/Clav 875/125 [Augmentin] 1 each PO Q12H #20 tablet 08/17/22 oxyCODONE [Roxicodone] 5 mg PO TID PRN #15 tablet 08/17/22 - Allergies Allergies/Adverse Reactions: Allergies Allergy/AdvReac Type Severity Reaction Status Date / Time adhesive tape Allergy Rash Verified 05/03/22 14:55 latex Allergy Rash Verified 05/03/22 14:55 tramadol Allergy Emesis Verified 05/03/22 14:55 gabapentin AdvReac Hallucinati Verified 05/03/22 14:55 ons hydrocodone bitartrate * AdvReac Itching Verified 05/03/22 14:55 [From Vicodin] - Social History Does the pt smoke?: No Smoking Status: Never smoker Does the pt drink ETOH?: No Does the pt have substance abuse?: No - Immunizations Immunizations are current?: Yes - POLST Patient has POLST: No POLST Status: Full Code PD ED PE NORMAL - General General: Alert and oriented X 3, Well developed/nourished (Morbidly obese). No: No acute distress (Appears to be in pain) - HEENT HEENT: Atraumatic, Moist mucous membranes - Neck Neck: Supple, no meningeal sign, No adenopathy - Cardiac Cardiac: RRR, No murmur - Respiratory Respiratory: No respiratory distress, Clear bilaterally - Abdomen Abdomen: Soft. No: Non tender (Abdominal exam limited by body habitus. Focal tenderness left lower quadrant with some guarding and rebound. 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 Eye Opening: Spontaneous Motor: Obeys Commands Verbal: Oriented GCS Score: 15 Results - Vitals Vitals: Vital Signs - 24 hr 08/17/22 12:39 Temperature 37.2 C Heart Rate 87 Respiratory 22 Rate Blood Pressure 160/78 H O2 Saturation 99 Oxygen O2 Source Room air - Labs Labs: Laboratory Tests 08/17/22 08/17/22 08/17/22 12:49 12:49 13:20 WBC 8.7 RBC 4.60 Hgb 13.4 Hct 40.9 MCV 88.9 MCH 29.1 MCHC 32.8 RDW 13.3 Plt Count 267 MPV 10.2 Neut # (Auto) 6.0 Lymph # (Auto) 1.7 [place] # (Auto) 0.7 Eos # (Auto) 0.3 Baso # (Auto) 0.1 Absolute Nucleated RBC 0.00 Nucleated RBC % 0.0 Sodium 135 Potassium 3.3 L Chloride 98 L Carbon Dioxide 27 Anion Gap 10.0 BUN 29 H Creatinine 1.3 H Estimated GFR (MDRD) 42 L Glucose 109 H Calcium 10.3 Total Bilirubin 0.5 AST 19 ALT 20 Alkaline Phosphatase 84 Total Protein 7.5 Albumin 4.0 Globulin 3.5 Albumin/Globulin Ratio 1.1 Lipase 24 Urine Color YELLOW Urine Clarity CLEAR Urine pH 5.5 Ur Specific [place] 1.025 Urine Protein NEGATIVE Urine Glucose (UA) NEGATIVE Urine Ketones NEGATIVE Urine Occult Blood NEGATIVE Urine Nitrite NEGATIVE Urine Bilirubin NEGATIVE Urine Urobilinogen 0.2 (NORMAL) Ur Leukocyte Esterase NEGATIVE Ur Microscopic Review NOT INDICATED Urine Culture Comments NOT INDICATED - Rads (name of study) CT abd w Radiology: Final report received (Diverticulitis of the sigmoid colon. No pericolonic abscess. Follow-up colonoscopy is recommended to exclude underlying malignancy. Bowel containing anterior abdominal pelvic wall hernia without evidence of associated obstruction.) PD MEDICAL DECISION MAKING - ED course Complexity details: reviewed results, re-evaluated patient, considered differential, d/w patient ED course: 62-year-old female presents to the emergency department for evaluation of 3 days left lower quadrant abdominal pain that she believes to be diverticulitis as this is similar to diverticulitis in the past. She does have a history of complicated diverticulitis that included bowel resection and anastomosis. On presentation she is uncomfortable appearing but no fevers. She has reassuring vital signs without hypotension. We did obtain a CBC that showed no leukocytosis. Her electrolytes show some mild chronic but unchanged kidney disease with a BUN of 29 and creatinine of 1.3. Liver function tests were nor mal. She was administered Dilaudid and a liter of fluids and Zofran here in the emergency department. Differentials considered include small bowel obstruction, diverticulitis, appendicitis, perforation, urinary tract infection, pyelonephritis. Subsequent CT of the abdomen does show uncomplicated diverticulitis without findings to suggest free air perforation or abscess. Patient was started on Augmentin here in the emergency department and will be discharged with a 10-day course as well as oxycodone for analgesia. We discussed the appropriate usual routine care measures. She is advised to follow-up with PCP and get a screening colonoscopy following this flare to ensure no underlying malignancy. I am prescribing a short course of short-acting opioid pain medication for this patient. I have reviewed the patients ENROLLMENT COUNSELOR and no concerning findings were noted. I have discussed that the opioids are for short term therapy only, and will not be refilled from the ED. Departure - Departure Disposition: 01 Home, Self Care Clinical Impression: Diverticulitis Condition: Stable Record reviewed to determine appropriate education?: Yes Prescriptions: Amox/Clav 875/125 [Augmentin] 1 each PO Q12H #20 tablet oxyCODONE [Roxicodone] 5 mg PO TID PRN #15 tablet PRN Reason: Pain Comments: Anny guerra are seen today in the emergency department for 3 days of left lower quadrant abdominal pain and you suspected you had diverticulitis. You are correct. The CT scan does show uncomplicated diverticulitis meaning that we do not see any findings to suggest abscess or bowel wall perforation. Your labs obtained today show no findings to suggest infection in the urine. Your renal function is unchanged from your normal baseline. You are not anemic. In order to manage the diverticulitis I am starting you on Augmentin. You will take this twice daily for the next 10 days. A limited amount of oxycodone has also been sent to the [facility] in [place]. It is important to discuss this ED visit with your primary care doctor. You should obtain a colonoscopy and follow-up to ensure that there is no underlying malignancy as a cause for this episode of diverticulitis. With the antibiotics and pain medicine I would expect her symptoms to be getting markedly better over the next 48 to 72 hours. Reasons to return to the emergency department would include fevers, uncontrolled vomiting, black or bl oody stools.
[2022-08-17 13:08] LABS: ALBUMIN/GLOBULIN RATIO 1.1 (1.0-2.2); BILIRUBIN,TOTAL 0.5 mg/dL (0.2-1.0); CALCIUM 10.3 mg/dL (8.5-10.3); CREATININE 1.3 mg/dL (0.4-1.0); POTASSIUM 3.3 mmol/L (3.5-5.0); TOTAL PROTEIN 7.5 g/dL (6.7-8.2)
[2022-08-17 13:29] LABS: BILIRUBIN,URINE NEGATIVE (NEGATIVE); GLUCOSE, URINE (UA) NEGATIVE (NEGATIVE); KETONES,URINE (UA) NEGATIVE (NEGATIVE); LEUKOCYTE ESTERASE, URINE NEGATIVE (NEGATIVE); NITRITE,URINE NEGATIVE (NEGATIVE); OCCULT BLOOD,URINE NEGATIVE (NEGATIVE); PH,URINE 5.5 PH (5.0-7.5); PROTEIN,URINE NEGATIVE (NEGATIVE); UROBILINOGEN,URINE 0.2 (NORMAL) E.U./dL (NORMAL)
[2022-08-17 13:31] LABS: CLARITY,URINE CLEAR (CLEAR)
[2022-08-17] MEDS ORDERED: iohexoL-300 100 ML VIAL ONE (14:11)
--- NOTE | 2022-08-17 14:39 | CT Report ---
PROCEDURE: ABDOMEN/PELVIS W INDICATIONS: LLQ abd pain; ? diverticulitis CONTRAST: 100ml omni 300 TECHNIQUE: After the administration of IV contrast, 5 mm thick sections acquired from the diaphragms to the symp hysis. 5 mm thick coronal and sagittal reformats were acquired. For radiation dose reduction, the f ollowing was used: automated exposure control, adjustment of mA and/or kV according to patient size. COMPARISON: 04/03/2022 FINDINGS: Image quality: Excellent. ABDOMEN: Lung bases: Lung bases are clear. Heart size is normal. Solid organs: Liver and spleen are normal in size and enhancement. Gallbladder is within normal dale its Biliary system is non dilated. Pancreas enhances normally. No adrenal nodules. Kidneys demons trate normal size and enhancement, without hydronephrosis. Peritoneum and bowel: Stomach and small bowel are within normal limits. Appendix is not seen. No evid ence of appendicitis. Colon is nondistended. Diverticulosis of the descending and sigmoid colon is pr esent. There is moderate thickening of the proximal sigmoid colon which demonstrates mild surrounding fat stranding. No free fluid or air. Nodes and vessels: No retroperitoneal or mesenteric adenopathy by size criteria. Aorta and inferior vena cava are normal in size. Miscellaneous: There is a large and small bowel containing anterior abdominal pelvic wall hernia thanh uring roughly 17 cm transverse without evidence of associated bowel strangulation, nor obstruction. PELVIS: Genitourinary: Bladder wall thickness is normal. Miscellaneous: No inguinal hernias or adenopathy. Bones: No suspicious bony lesions. No vertebral body compression fractures. IMPRESSION: 1. Diverticulitis of the sigmoid colon. No pericolonic abscess. Follow-up colonoscopy is recommended to exclude underlying malignancy. 2. Bowel containing anterior abdominal pelvic wall hernia without evidence of associated obstruction. Reviewed by: Candis Clements MD on 08/17/2022 1:38 PM [facility] Approved by: Candis Clements MD on 08/17/2022 1:38 PM [facility] Station ID: [id number]
[2022-08-17] MEDS ORDERED: AMOX/CLAV 875 MG/125 MG TABLET PO STA (14:43)
[2022-08-17] MEDS ORDERED: oxyCODONE 5 MG TABLET PO STA (14:43)
[2022-08-17] MEDS ORDERED: iohexoL-300 100 ML VIAL IVP ONE (17:15)
== END 2022-08-17 15:01 | disposition home or self-care (01) ==
LOC: EDUNIT# → ED 12:31
DX: K57.32 Diverticulitis of large intestine without perforation or abscess without bleeding (principal)
CPT/HCPCS: 36415; 74177; 80053; 81003; 83690; 85025; 96374; 96375; 99284; A9270; J1170; Q9967; 81001; 87086

== ENCOUNTER → 2022-08-17 | Outpatient (CLI) | payer MEDICAID | END | disposition critical access hospital (66) | LOC: EMS 12:07 | DX: R10.32 Left lower quadrant pain (principal); R11.2 Nausea with vomiting, unspecified | CPT/HCPCS: A0425; A0427; A0999 ==

== ENCOUNTER 2022-08-23 15:19 | Emergency (ER) | payer MEDICAID ==
[2022-08-23] MEDS ORDERED: SODIUM CHLORIDE 0.9% 1,000 ML IV STA (15:39)
[2022-08-23] MEDS ORDERED: HYDROmorphone 1 MG/ML CARPUJECT IVP STA ×2 (15:39→16:26)
[2022-08-23] MEDS ORDERED: ONDANSETRON 4 MG/2 ML VIAL IVP STA (15:39)
[2022-08-23 15:58] LABS: BASOPHILS # (AUTO) 0.1 10^3/uL (0.0-0.1); BASOPHILS % (AUTO) 1.2 %; EOSINOPHILS # (AUTO) 0.4 10^3/uL (0.0-0.7); EOSINOPHILS % (AUTO) 5.2 %; HCT - HEMATOCRIT 41.6 % (37.0-47.0); HGB - HEMOGLOBIN 13.4 g/dL (12.0-16.0); LYMPHOCYTES # (AUTO) 2.1 10^3/uL (1.5-3.5); LYMPHOCYTES % (AUTO) 29.1 %; MEAN CORPUSCULAR HEMOGLOBIN 29.1 pg (27.0-31.0); MEAN CORPUSCULAR HGB CONC 32.2 g/dL (32.0-36.0); MEAN CORPUSCULAR VOLUME 90.2 fL (81.0-99.0); MEAN PLATELET VOLUME 9.3 fL (7.9-10.8); MONOCYTES # (AUTO) 0.5 10^3/uL (0.0-1.0); MONOCYTES % (AUTO) 6.9 %; NEUTROPHILS # (AUTO) 4.2 10^3/uL (1.5-6.6); NEUTROPHILS % (AUTO) 57.2 %; PLT - PLATELET COUNT 315 10^3/uL (130-450); RED BLOOD COUNT 4.61 10^6/uL (4.20-5.40); RED CELL DISTRIBUTION WIDTH 13.2 % (12.0-15.0); WHITE BLOOD COUNT 7.4 x10^3/uL (4.8-10.8)
[2022-08-23 16:23] LABS: PT - PROTHROMBIN TIME 10.9 secs (9.9-12.6)
[2022-08-23 16:29] LABS: ALBUMIN 3.4 g/dL (3.2-5.5); BILIRUBIN,TOTAL 0.4 mg/dL (0.2-1.0); CALCIUM 9.7 mg/dL (8.5-10.3); CREATININE 0.6 mg/dL (0.4-1.0); TOTAL PROTEIN 6.9 g/dL (6.7-8.2)
[2022-08-23 17:10] VITALS: BP 177/89
--- NOTE | 2022-08-23 17:13 | ED Physician Documentation ---
History of Present Illness - Stated complaint Stated Complaint: SEVERE STOMACH PX - Chief complaint Chief Complaint: Abd Pain - Additonal information Additional information: Patient is 62-year-old female presenting to the emergency department with abdominal pain. Seen here 08/17 and diagnosed with diverticulitis. Prescribed oxycodone and Augmentin. Was seen on an outpatient basis earlier today and referred back to the emergency department for abdominal pain. Stated she had excessive nausea vomiting and was unable to tolerate her oral antibiotics. Has history of complicated diverticulitis in the past requiring subtotal colonic resection. Review of Systems Ten Systems: 10 systems reviewed and negative GI: reports: Abdominal Pain, Nausea, Vomiting PD PAST MEDICAL HISTORY - Past Medical History Cardiovascular: Hypertension, Murmur Respiratory: Asthma, Shortness of breath Neuro: Headaches, Motion sickness Endocrine/Autoimmune: HyPOthyroidism GI: Diverticulitis PRODUCT MANAGEMENT CONSULTANT: Breast cancer : None HEENT: Chronic vision loss Psych: Depression, Anxiety, ADD/ADHD, Claustrophobia Musculoskeletal: Osteoarthritis, Fatigue, Chronic back pain Derm: None - Past Surgical History Past Surgical History: Yes General: Appendectomy, Bowel surgery Ortho: Spine surgery /PRODUCT MANAGEMENT CONSULTANT: Mastectomy - Present Medications Home Medications: Ambulatory Orders Medication Instructions Recorded Confirmed hydroCHLOROthiazide 25 mg PO DAILY 08/10/17 12/26/21 [Hydrochlorothiazide] Albuterol Sulfate [Proair 2 puffs INH Q4H PRN 03/02/18 12/26/21 Respiclick] Thyroid,Pork [[place] Thyroid] 120 mg PO QDAC 03/02/18 12/26/21 Venlafaxine HCl [Venlafaxine HCl 150 mg PO DAILY 03/02/18 12/19/21 ER] traZODone [Desyrel] 200 mg PO HS PRN 03/02/18 12/19/21 lisinopriL [Lisinopril] 10 mg PO DAILY 07/27/18 12/19/21 Ciprofloxacin [Cipro] 500 mg PO Q12H #40 tablet 12/16/21 12/19/21 Cyclobenzaprine [Flexeril] 10 mg PO Q8HR PRN 12/19/21 12/19/21 oxyCODONE [Roxicodone] 5 mg PO Q4-6H #6 tablet 12/26/21 Naproxen 500 mg PO BID 7 Days #14 tab 04/27/22 cephALEXin [Keflex] 500 mg PO QID #28 cap 04/27/22 oxyCODONE [Roxicodone] 5 mg PO Q6H PRN #12 tablet 04/27/22 Furosemide [Lasix] 20 mg PO DAILY 7 Days #7 tablet 05/01/22 Potassium Chloride [K-Dur] 20 meq PO DAILY #7 tablet 05/01/22 Amox/Clav 875/125 [Augmentin] 1 each PO Q12H #20 tablet 08/17/22 oxyCODONE [Roxicodone] 5 mg PO TID PRN #15 tablet 08/17/22 Amox/Clav 875/125 [Augmentin] 1 tab PO Q12H #20 tablet 08/23/22 Prochlorperazine Maleate 10 mg PO Q4HR PRN #10 tab 08/23/22 [Compazine] - Allergies Allergies/Adverse Reactions: Allergies Allergy/AdvReac Type Severity Reaction Status Date / Time adhesive tape Allergy Rash Verified 08/23/22 15:28 latex Allergy Rash Verified 08/23/22 15:28 tramadol Allergy Emesis Verified 08/23/22 15:28 gabapentin AdvReac Hallucinati Verified 08/23/22 15:28 ons hydrocodone bitartrate * AdvReac Itching Verified 08/23/22 15:28 [From Vicodin] - Social History Does the pt smoke?: No Smoking Status: Never smoker Does the pt drink ETOH?: No Does the pt have substance abuse?: No - Immunizations Immunizations are current?: Yes - POLST Patient has POLST: No POLST Status: Full Code PD ED PE NORMAL - Vitals Vital signs reviewed: Yes (Within normal limits) - General General: Alert and oriented X 3, Other (Patient appears uncomfortable) - HEENT HEENT: Atraumatic - Neck Neck: Supple, no meningeal sign - Cardiac Cardiac: RRR - Respiratory Respiratory: No respiratory distress - Abdomen Abdomen: Normal bowel sounds, Soft - Female Female : Deferred Results - Vitals Vitals: Vital Signs - 24 hr 08/23/22 08/23/22 15:23 17:09 Temperature 36.3 C L Heart Rate 77 73 Respiratory 24 18 Rate Blood Pressure 171/111 H 177/89 H O2 Saturation 99 99 Oxygen O2 Source Room air - EKG (time done) 1611 Rate: Rate (enter#) (72) Rhythm: NSR [place]: Normal Intervals: Normal [place] QRS: Normal Ischemia: Normal ST segments Computer interpretation: Agree with computer - Labs Labs: Laboratory Tests 08/23/22 08/23/22 08/23/22 15:50 15:50 16:13 WBC 7.4 RBC 4.61 Hgb 13.4 Hct 41.6 MCV 90.2 MCH 29.1 MCHC 32.2 RDW 13.2 Plt Count 315 MPV 9.3 Neut # (Auto) 4.2 Lymph # (Auto) 2.1 Eddy # (Auto) 0.5 Eos # (Auto) 0.4 Baso # (Auto) 0.1 Absolute Nucleated RBC 0.00 Nucleated RBC % 0.0 PT INR Sodium 137 Potassium 4.0 Chloride 103 Carbon Dioxide 24 Anion Gap 10.0 BUN 13 Creatinine 0.6 Estimated GFR (MDRD) 101 Glucose 75 Lactic Acid 2.0 Calcium 9.7 Total Bilirubin 0.4 AST 19 ALT 18 Alkaline Phosphatase 81 Total Protein 6.9 Albumin 3.4 Globulin 3.5 Albumin/Globulin Ratio 1.0 Lipase 26 08/23/22 16:13 WBC RBC Hgb Hct MCV MCH MCHC RDW Plt Count MPV Neut # (Auto) Lymph # (Auto) Eddy # (Auto) Eos # (Auto) Baso # (Auto) Absolute Nucleated RBC Nucleated RBC % PT 10.9 INR 1.0 Sodium Potassium Chloride Carbon Dioxide Anion Gap BUN Creatinine Estimated GFR (MDRD) Glucose Lactic Acid Calcium Total Bilirubin AST ALT Alkaline Phosphatase Total Protein Albumin Globulin Albumin/Globulin Ratio Lipase PD Medical Decision Making - ED course ED course: Patient 62-year-old female presenting to the emergency department with persistent abdominal pain and reported nausea and vomiting in setting of recent diagnosis of diverticulitis. Afebrile, hemodynamically stable on arrival to the emergency department. IV access was obtained and patient was given IV Dilaudid, Zofran, IV hydration. Comprehensive labs obtained demonstrated a normal white blood cell count which is actually decreased from her previous evaluation on the . The remainder of her labs were all within normal limits. At patient's request she received the second dose of IV Dilaudid. On reevaluation I found her to be resting comfortably, playing on her phone. She continued to endorse for significant pain howeverAnd requested additional Dilaudid however when I informed her that I was not going to give her another dose of IV pain medication and in lieu of this would like to try an alternative therapy including IV Haldol, Benadryl and possibly Toradol she reported that she felt significantly better and wished to leave the emergency department. She immediately got out of bed began unhooking her IV and dressing to leave. We will provide her with prescription for Augmentin as well as Compazine. She was encouraged to follow-up with primary care or return to the emergency department as needed. Final clinical impression: Diverticulitis. Departure - Departure Disposition: Home, Self Care Prescriptions: Prochlorperazine Maleate [Compazine] 10 mg PO Q4HR PRN #10 tab PRN Reason: Nausea / Vomiting Amox/Clav 875/125 [Augmentin] 1 tab PO Q12H #20 tablet Comments: Thank you for allowing us to care for you today at [facility]. Prescription sent to [facility] in [place] All the testing performed in the emergency department including her blood work and EKG were all very reassuring. I will be discharging you with some additional antibiotics to take. Please use these as directed. Please use your previous prescription for oxycodone for pain control. I do recommend following up with your primary care doctor soon as possible. If it anytime you have new or worsening symptoms please not hesitate to return. Discharge Date/Time: 08/23/22 17:29
== END 2022-08-23 17:29 | disposition home or self-care (01) ==
LOC: ED 15:19
DX: K57.92 Diverticulitis of intestine, part unspecified, without perforation or abscess without bleeding (principal)
CPT/HCPCS: 36415; 80053; 83605; 83690; 85025; 85610; 93005; 96361; 96374; 96375; 99281; 99284; J1170

== ENCOUNTER 2022-09-20 17:16 | Outpatient (CLI) | payer MEDICAID | END 2022-09-20 17:17 | disposition critical access hospital (66) | LOC: EMS 17:16 | DX: R10.9 Unspecified abdominal pain (principal); R11.2 Nausea with vomiting, unspecified | CPT/HCPCS: A0425; A0427; A0999 ==

== ENCOUNTER 2022-09-20 18:16 | Emergency (ER) | payer MEDICAID ==
--- OUTSIDE RECORDS SUMMARY | 2022-09-20 18:21 | EXTERNAL MEDICAL SUMMARY RPT | Continuity of Care Document ---
:1960 Author Organization [facility] Address [address] [place] [address] Phone Care Team Providers Name Role Phone Unavailable Unavailable Unavailable Rosanna Guillermo, Reinier Unavailable Unavailable Harpal, Provider Unavailable Unavailable Allergies No information. Encounters No information. Functional Status No information. Immunizations No information. Medications date description facility 2022-07-10 00:00 furosemide [facility] 2022-08-18 00:00 furosemide [facility] 2022-08-19 00:00 furosemide [facility] 2022-07-10 00:00 furosemide [facility] 2022-08-18 00:00 furosemide [facility] 2022-08-19 00:00 furosemide [facility] 2022-07-10 00:00 naloxone [facility] 2022-08-18 00:00 naloxone [facility] 2022-08-19 00:00 naloxone [facility] 2022-07-08 00:00 ONDANSETRON [facility] 2022-07-08 00:00 ONDANSETRON [facility] 2022-07-10 00:00 naloxone [facility] 2022-08-18 00:00 naloxone [facility] 2022-08-19 00:00 naloxone [facility] 2022-07-10 00:00 naloxone [facility] 2022-08-18 00:00 naloxone [facility] 2022-08-19 00:00 naloxone [facility] 2022-07-10 00:00 furosemide [facility] 2022-08-18 00:00 furosemide [facility] 2022-08-19 00:00 furosemide [facility] 2022-07-10 00:00 venlafaxine [facility] 2022-08-18 00:00 venlafaxine [facility] 2022-08-19 00:00 venlafaxine [facility] 2022-07-10 00:00 furosemide [facility] 2022-08-18 00:00 furosemide [facility] 2022-08-19 00:00 furosemide [facility] 2022-07-10 00:00 venlafaxine [facility] 2022-08-18 00:00 venlafaxine [facility] 2022-08-19 00:00 venlafaxine [facility] 2022-07-10 00:00 furosemide [facility] 2022-08-18 00:00 furosemide [facility] 2022-08-19 00:00 furosemide [facility] 2022-07-10 00:00 furosemide [facility] 2022-08-18 00:00 furosemide [facility] 2022-08-19 00:00 furosemide [facility] 2022-07-10 00:00 albuterol sulfate [facility] 2022-08-18 00:00 albuterol sulfate [facility] 2022-08-19 00:00 albuterol sulfate [facility] 2022-07-10 00:00 albuterol sulfate [facility] 2022-08-18 00:00 albuterol sulfate [facility] 2022-08-19 00:00 albuterol sulfate [facility] 2022-07-10 00:00 venlafaxine [facility] 2022-08-18 00:00 venlafaxine [facility] 2022-08-19 00:00 venlafaxine [facility] 2022-07-10 00:00 albuterol sulfate [facility] 2022-08-18 00:00 albuterol sulfate [facility] 2022-08-19 00:00 albuterol sulfate [facility] 2022-07-10 00:00 venlafaxine [facility] 2022-08-18 00:00 venlafaxine [facility] 2022-08-19 00:00 venlafaxine [facility] 2022-07-10 00:00 albuterol sulfate [facility] 2022-08-18 00:00 albuterol sulfate [facility] 2022-08-19 00:00 albuterol sulfate [facility] 2022-07-10 00:00 furosemide [facility] 2022-08-18 00:00 furosemide [facility] 2022-08-19 00:00 furosemide [facility] 2022-07-10 00:00 furosemide [facility] [place] 2022-08-18 00:00 furosemide [facility] [place] 2022-08-19 00:00 furosemide [facility] [place] 2022-07-10 00:00 naloxone [facility] [place] 2022-08-18 00:00 naloxone [facility] [place] 2022-08-19 00:00 naloxone [facility] [place] Problems date description facility 2022-07-02 00:00 Bilateral carpal tunnel syndrome Walk[facility] 2022-07-02 00:00 Bilateral carpal tunnel syndrome Walk[facility] 2022-07-02 00:00 Acquired trigger finger Walk[facility]In [facility] 2022-07-02 00:00 Acquired trigger finger [facility] 2022-07-02 00:00 Trigger finger (acquired) Walk-In [facility] 2022-07-02 00:00 Trigger finger (acquired) Walk-In [facility] 2022-07-02 00:00 Carpal tunnel syndrome, bilateral Walk -In [facility] upper limbs [facility] Dawn harman 2022-07-02 00:00 Carpal tunnel syndrome, bilateral Walk [facility]In [facility] Dawn callawayharman 2022-07-02 00:00 Trigger finger, left middle Walk-In in [facility] finger [facility] Dawn hammer 2022-07-02 00:00 Trigger finger, left middle Walk-In Cl in [facility] finger [facility] Services Dawn hammer 2022-07-02 00:00 Trigger finger, left ring finger Walk[facility] Dawn hammer 2022-07-02 00:00 Trigger finger, left ring finger Walk[facility] Dawn hammer 2022-07-08 00:00 Nausea and vomiting Walk-In [facility] Dawn hammer 2022-07-08 00:00 Nausea and vomiting Walk-In [facility] Macrina [facility]avon [facility] C harman 2022-07-08 00:00 Nausea with vomiting Walk[facility]In [facility] C harman 2022-07-08 00:00 Nausea with vomiting [facility]In [facility] C harman 2022-07-08 00:00 Abdominal pain, left lower Walk-In Cli [facility] & quadrant [facility] C harman 2022-07-08 00:00 Abdominal pain, left lower Walk-In Cli [facility] quadrant [facility] C harman 2022-07-08 00:00 Left lower quadrant pain Walk-In Cl[facility] C harman 2022-07-08 00:00 Left lower quadrant pain [facility] C harman 2022-07-08 00:00 Nausea with vomiting, unspecified [facility] C harman 2022-07-08 00:00 Nausea with vomiting, unspecified [facility] C harman Procedures date description facility 2022-07-08 00:00 Visit Code Hold [facility] 2022-07-08 00:00 Visit Code Hold [facility] Results/Labs test date author facility value unit interpret ation Result panel 1 (unknown) (no date) (unknown) Walk-In (no value) (units [facility] Result panel 2 (unknown) (no date) (unknown) Walk-In (no value) ([facility] Result panel 3 (unknown) (no date) (unknown) Walk-In (no value) ([facility] Result panel 4 (unknown) (no date) (unknown) Walk-In (no value) (units [facility] Result panel 5 (unknown) (no date) (unknown) Walk-In (no value) (units ([facility]own[facility] Result panel 6 (unknown) (no date) (unknown) Walk-In (no value) (units ([facility]own[facility] Result panel 7 (unknown) (no date) (unknown) Walk-In (no value) (units ([facility] Result panel 8 (unknown) (no date) (unknown) Walk-In (no value) (units ([facility]own[facility] Result panel 9 (unknown) (no date) (unknown) Walk-In (no value) (units ([facility] Result panel 10 (unknown) (no date) (unknown) Walk-In (no value) (units ([facility] Result panel 11 (unknown) (no date) (unknown) Walk-In (no value) (units ([facility]own[facility] Result panel 12 (unknown) (no date) (unknown) Walk-In (no value) (units ([facility]own[facility] unknown[facility] Result panel 13 (unknown) (no date) (unknown) Walk-In (no value) (units ([facility]own[facility] unknown[facility] Result panel 14 (unknown) (no date) (unknown) Walk-In (no value) (units ([facility]own[facility] unknown[facility] Result panel 15 (unknown) (no date) (unknown) Walk-In (no value) (units ([facility] nown[facility] unknown[facility] Result panel 16 (unknown) (no date) (unknown) Walk-In (no value) (units ([facility]own[facility] unknown[facility] Result panel 17 (unknown) (no date) (unknown) Walk-In (no value) (units ([facility]own[facility] unknown[facility] Result panel 18 (unknown) (no date) (unknown) Walk-In (no value) (units ([facility]own[facility] unknown[facility] Result panel 19 (unknown) (no date) (unknown) Walk-In (no value) (units ([facility]own[facility] unknown[facility] Result panel 20 (unknown) (no date) (unknown) Walk-In (no value) (units ([facility]own[facility] unknown[facility] Result panel 21 (unknown) (no date) (unknown) Walk-In (no value) (units ([facility] nown[facility] Primary unknown) [facility] Result panel 22 (unknown) (no date) (unknown) Walk-In (no value) (units ([facility] nown[facility] unknown) [facility] Result panel 23 (unknown) (no date) (unknown) Walk-In (no value) (units ([facility] nown[facility] unknown[facility] Result panel 24 (unknown) (no date) (unknown) Walk-In (no value) (units ([facility] nown[facility] unknown[facility] Result panel 25 (unknown) (no date) (unknown) Walk-In (no value) (units ([facility] nown[facility] unknown[facility] Result panel 26 (unknown) (no date) (unknown) Walk-In (no value) (units ([facility] nown[facility] unknown[facility] Result panel 27 (unknown) (no date) (unknown) Walk-In (no value) (units ([facility] nown[facility] unknown[facility] Result panel 28 (unknown) (no date) (unknown) Walk-In (no value) (units ([facility] nown[facility] unknown[facility] Result panel 29 (unknown) (no date) (unknown) Walk-In (no value) (units ([facility]own[facility] Result panel 30 (unknown) (no date) (unknown) Walk-In (no value) (units ([facility]own[facility] unknown[facility] Result panel 31 (unknown) (no date) (unknown) Walk-In (no value) (units ([facility]own[facility] unknown[facility] Result panel 32 (unknown) (no date) (unknown) Walk-In (no value) (units ([facility]own[facility] unknown[facility] Result panel 33 (unknown) (no date) (unknown) Walk-In (no value) (units ([facility]own[facility] unknown[facility] Result panel 34 (unknown) (no date) (unknown) Walk-In (no value) (units ([facility] nown[facility] unknown) [facility] Result panel 35 (unknown) (no date) (unknown) Walk-In (no value) (units ([facility] nown[facility] Primary unknown) [facility] Result panel 36 (unknown) (no date) (unknown) Walk-In (no value) (units ([facility]own[facility] unknown[facility] Result panel 37 (unknown) (no date) (unknown) Walk-In (no value) (units ([facility] nown[facility] unknown[facility] Result panel 38 (unknown) (no date) (unknown) Walk-In (no value) (units ([facility]own[facility] unknown[facility] Result panel 39 (unknown) (no date) (unknown) Walk-In (no value) (units ([facility]own[facility] unknown[facility] Result panel 40 (unknown) (no date) (unknown) Walk-In (no value) (units ([facility] nown[facility] unknown[facility] Result panel 41 (unknown) (no date) (unknown) Walk-In (no value) (units ([facility] nown[facility] unknown) [facility] Result panel 42 (unknown) (no date) (unknown) Walk-In (no value) (units ([facility] nown[facility] unknown) [facility] Result panel 43 (unknown) (no date) (unknown) Walk-In (no value) (units ([facility]own[facility] unknown[facility] Result panel 44 (unknown) (no date) (unknown) Walk-In (no value) (units ([facility] nown[facility] Primary unknown) [facility] Result panel 45 (unknown) (no date) (unknown) Walk-In (no value) (units ([facility] nown[facility] Primary unknown) [facility] Result panel 46 (unknown) (no date) (unknown) Walk-In (no value) (units ([facility] nown[facility] unknown) [facility] Result panel 47 (unknown) (no date) (unknown) Walk-In (no value) (units ([facility] nown) [facility] Primary unknown) [facility] Result panel 48 (unknown) (no date) (unknown) Walk-In (no value) (units ([facility] nown) [facility] unknown) [facility] Result panel 49 (unknown) (no date) (unknown) Walk-In (no value) (units ([facility] nown) [facility] Primary unknown) [facility] Result panel 50 (unknown) (no date) (unknown) Walk-In (no value) (units ([facility] nown[facility] Primary unknown) [facility] Result panel 51 (unknown) (no date) (unknown) Walk-In (no value) (units ([facility] nown) [facility] Primary unknown) [facility] Result panel 52 (unknown) (no date) (unknown) Walk-In (no value) (units ([facility] nown[facility] Primary unknown) [facility] Result panel 53 (unknown) (no date) (unknown) Walk-In (no value) (units ([facility] nown) [facility] Primary unknown) [facility] Result panel 54 (unknown) (no date) (unknown) Walk-In (no value) (units ([facility] nown) [facility] Primary unknown) [facility] Result panel 55 (unknown) (no date) (unknown) Walk-In (no value) (units (unk nown) [facility] Primary unknown) [facility] Result panel 56 (unknown) (no date) (unknown) Walk-In (no value) (units ([facility] nown) [facility] Primary unknown) [facility] Result panel 57 (unknown) (no date) (unknown) Walk-In (no value) (units (unk nown) [facility] Primary unknown) [facility] Result panel 58 (unknown) (no date) (unknown) Walk-In (no value) (units (unk nown) [facility] Primary unknown) [facility] Result panel 59 (unknown) (no date) (unknown) Walk-In (no value) (units ([facility] nown) [facility] Primary unknown) [facility] Result panel 60 (unknown) (no date) (unknown) Walk-In (no value) (units ([facility] nown) [facility] Primary unknown) [facility] Result panel 61 (unknown) (no date) (unknown) Walk-In (no value) (units ([facility] nown) [facility] Primary unknown) [facility] Result panel 62 (unknown) (no date) (unknown) Walk-In (no value) (units (unk nown) [facility] Primary unknown) [facility] Result panel 63 (unknown) (no date) (unknown) Walk-In (no value) (units ([facility] nown) [facility] Primary unknown) [facility] Result panel 64 (unknown) (no date) (unknown) Walk-In (no value) (units (unk nown) [facility] Primary unknown) [facility] Result panel 65 (unknown) (no date) (unknown) Walk-In (no value) (units (unk nown) [facility] Primary unknown) [facility] Result panel 66 (unknown) (no date) (unknown) Walk-In (no value) (units (unk nown) [facility] Primary unknown) [facility] Result panel 67 (unknown) (no date) (unknown) Walk-In (no value) (units ([facility] nown) [facility] Primary unknown) [facility] Result panel 68 (unknown) (no date) (unknown) Walk-In (no value) (units (unk nown) [facility] Primary unknown) [facility] Result panel 69 (unknown) (no date) (unknown) Walk-In (no value) (units (unk nown) [facility] Primary unknown) [facility] Result panel 70 (unknown) (no date) (unknown) Walk-In (no value) (units ([facility] nown) [facility] Primary unknown) [facility] Result panel 71 (unknown) (no date) (unknown) Walk-In (no value) (units (unk nown) [facility] Primary unknown) [facility] Result panel 72 (unknown) (no date) (unknown) Walk-In (no value) (units (unk nown) [facility] Primary unknown) [facility] Result panel 73 (unknown) (no date) (unknown) Walk-In (no value) (units (unk nown) Clinic Primary unknown) [facility] Result panel 74 (unknown) (no date) (unknown) Walk-In (no value) (units (unk nown) Clinic Primary unknown) [facility] Result panel 75 (unknown) (no date) (unknown) Walk-In (no value) (units (unk nown) Clinic Primary unknown) [facility] Result panel 76 (unknown) (no date) (unknown) Walk-In (no value) (units (unk nown) Clinic Primary unknown) [facility] Result panel 77 (unknown) (no date) (unknown) Walk-In (no value) (units (unk nown) Clinic Primary unknown) [facility] Result panel 78 (unknown) (no date) (unknown) Walk-In (no value) (units (unk nown) Clinic Primary unknown) [facility] Result panel 79 (unknown) (no date) (unknown) Walk-In (no value) (units (unk nown) Clinic Primary unknown) [facility] Result panel 80 (unknown) (no date) (unknown) Walk-In (no value) (units (unk nown) Clinic Primary unknown) [facility] Result panel 81 (unknown) (no date) (unknown) Walk-In (no value) (units (unk nown) Clinic Primary unknown) [facility] Result panel 82 (unknown) (no date) (unknown) Walk-In (no value) (units (unk nown) Clinic Primary unknown) [facility] Result panel 83 (unknown) (no date) (unknown) Walk-In (no value) (units (unk nown) Clinic Primary unknown) [facility] Result panel 84 (unknown) (no date) (unknown) Walk-In (no value) (units (unk nown) Clinic Primary unknown) [facility] Result panel 85 (unknown) (no date) (unknown) Walk-In (no value) (units (unk nown) Clinic Primary unknown) [facility] Result panel 86 (unknown) (no date) (unknown) Walk-In (no value) (units (unk nown) Clinic Primary unknown) [facility] Result panel 87 (unknown) (no date) (unknown) Walk-In (no value) (units (unk nown) Clinic Primary unknown) [facility] Result panel 88 (unknown) (no date) (unknown) Walk-In (no value) (units (unk nown) Clinic Primary unknown) [facility] Result panel 89 (unknown) (no date) (unknown) Walk-In (no value) (units (unk nown) [facility] Primary unknown) [facility] Result panel 90 (unknown) (no date) (unknown) Walk-In (no value) (units (unk nown) Clinic Primary unknown) [facility] Result panel 91 (unknown) (no date) (unknown) Walk-In (no value) (units (unk nown) Clinic Primary unknown) [facility] Result panel 92 (unknown) (no date) (unknown) Walk-In (no value) (units ([facility] nown) Clinic Primary unknown) [facility] Result panel 93 (unknown) (no date) (unknown) Walk-In (no value) (units ([facility] nown) [facility] Primary unknown) [facility] Result panel 94 (unknown) (no date) (unknown) Walk-In (no value) (units ([facility] nown) Clinic Primary unknown) [facility] Result panel 95 (unknown) (no date) (unknown) Walk-In (no value) (units ([facility] nown) Clinic Primary unknown) [facility] Result panel 96 (unknown) (no date) (unknown) Walk-In (no value) (units ([facility] nown) Clinic Primary unknown) [facility] Result panel 97 (unknown) (no date) (unknown) Walk-In (no value) (units ([facility] nown) Clinic Primary unknown) [facility] Result panel 98 (unknown) (no date) (unknown) Walk-In (no value) (units ([facility] nown) Clinic Primary unknown) [facility] Result panel 99 (unknown) (no date) (unknown) Walk-In (no value) (units ([facility] nown) Clinic Primary unknown) [facility] Result panel 100 (unknown) (no date) (unknown) Walk-In (no value) (units ([facility] nown) [facility] Primary unknown) [facility] Result panel 101 (unknown) (no date) (unknown) Walk-In (no value) (units ([facility] nown) Clinic Primary unknown) [facility] Result panel 102 (unknown) (no date) (unknown) Walk-In (no value) (units ([facility] nown) Clinic Primary unknown) [facility] Result panel 103 (unknown) (no date) (unknown) Walk-In (no value) (units (unk nown) Clinic Primary unknown) [facility] Result panel 104 (unknown) (no date) (unknown) Walk-In (no value) (units ([facility] nown) Clinic Primary unknown) [facility] Result panel 105 (unknown) (no date) (unknown) Walk-In (no value) (units ([facility] nown) Clinic Primary unknown) [facility] Result panel 106 (unknown) (no date) (unknown) Walk-In (no value) (units ([facility] nown) Clinic Primary unknown) [facility] Result panel 107 (unknown) (no date) (unknown) Walk-In (no value) (units ([facility] nown) Clinic Primary unknown) [facility] Result panel 108 (unknown) (no date) (unknown) Walk-In (no value) (units (unk nown) Clinic Primary unknown) [facility] Result panel 109 (unknown) (no date) (unknown) Walk-In (no value) (units (unk nown) Clinic Primary unknown) [facility] Result panel 110 (unknown) (no date) (unknown) Walk-In (no value) (units (unk nown) Clinic Primary unknown) [facility] Result panel 111 (unknown) (no date) (unknown) Walk-In (no value) (units (unk nown) Clinic Primary unknown) [facility] Result panel 112 (unknown) (no date) (unknown) Walk-In (no value) (units (unk nown) Clinic Primary unknown) [facility] Result panel 113 (unknown) (no date) (unknown) Walk-In (no value) (units (unk nown) Clinic Primary unknown) [facility] Result panel 114 (unknown) (no date) (unknown) Walk-In (no value) (units (unk nown) Clinic Primary unknown) [facility] Result panel 115 (unknown) (no date) (unknown) Walk-In (no value) (units (unk nown) Clinic Primary unknown) [facility] Result panel 116 (unknown) (no date) (unknown) Walk-In (no value) (units (unk nown) Clinic Primary unknown) [facility] Result panel 117 (unknown) (no date) (unknown) Walk-In (no value) (units (unk nown) Clinic Primary unknown) [facility] Result panel 118 (unknown) (no date) (unknown) Walk-In (no value) (units (unk nown) Clinic Primary unknown) [facility] Result panel 119 (unknown) (no date) (unknown) Walk-In (no value) (units (unk nown) Clinic Primary unknown) [facility] Result panel 120 (unknown) (no date) (unknown) Walk-In (no value) (units (unk nown) Clinic Primary unknown) [facility] Result panel 121 (unknown) (no date) (unknown) Walk-In (no value) (units (unk nown) Clinic Primary unknown) [facility] Result panel 122 (unknown) (no date) (unknown) Walk-In (no value) (units (unk nown) Clinic Primary unknown) [facility] Result panel 123 (unknown) (no date) (unknown) Walk-In (no value) (units (unk nown) Clinic Primary unknown) [facility] Result panel 124 (unknown) (no date) (unknown) Walk-In (no value) (units (unk nown) Clinic Primary unknown) [facility] Result panel 125 (unknown) (no date) (unknown) Walk-In (no value) (units (unk nown) Clinic Primary unknown) [facility] Result panel 126 (unknown) (no date) (unknown) Walk-In (no value) (units (unk nown) Clinic Primary unknown) [facility] Result panel 127 (unknown) (no date) (unknown) Walk-In (no value) (units (unk nown) Clinic Primary unknown) [facility] Result panel 128 (unknown) (no date) (unknown) Walk-In (no value) (units (unk nown) Clinic Primary unknown) [facility] Result panel 129 (unknown) (no date) (unknown) Walk-In (no value) (units (unk nown) Clinic Primary unknown) [facility] Result panel 130 (unknown) (no date) (unknown) Walk-In (no value) (units (unk nown) Clinic Primary unknown) [facility] Result panel 131 (unknown) (no date) (unknown) Walk-In (no value) (units (unk nown) Clinic Primary unknown) [facility] Social History date description facility 2022-07-08 00:00 Never smoker Walk-In Clinic [facility] 2022-07-08 00:00 Never smoker Walk-In Clinic [facility] Vital Signs date measurement value units 2022-07-08 00:00 BMI 39.02 kg/m2 2022-07-08 00:00 BP_diastolic 94 mmHg 2022-07-08 00:00 BP_systolic 157 mmHg 2022-07-08 00:00 heart_rate 90 /min 2022-07-08 00:00 height_metric 153.67 cm 2022-07-08 00:00 height_standard 60.5 in 2022-07-08 00:00 respiration_rate 15 /min 2022-07-08 00:00 temperature_metric 36.83 C 2022-07-08 00:00 temperature_standard 98.3 F 2022-07-08 00:00 weight_metric 91.81 kg 2022-07-08 00:00 weight_standard 202.4 lb
[2022-09-20] MEDS ORDERED: SODIUM CHLORIDE 0.9% 1,000 ML IV STA (18:34)
[2022-09-20] MEDS ORDERED: HYDROmorphone 1 MG/ML CARPUJECT IVP STA ×2 (18:34→20:47)
[2022-09-20] MEDS ORDERED: METOCLOPRAMIDE 10 MG/2 ML VIAL IVP STA ×2 (18:34→20:47)
--- NOTE | 2022-09-20 18:36 | ED Physician Documentation ---
PD HPI ABD PAIN - Stated complaint Stated Complaint: HERNIA PX - History obtained from History obtained from: Patient, EMS - Additional information Additional information: She had complicated diverticulitis with partial colectomy in 2019 at [place]. For the last week she had severe pain of her known ventral hernia. It is associated with nausea and vomiting but her bowel movements have been normal. She is brought in by EMS and independent history was taken from meteorological engineer. Prior to arrival she had 150 mcg of fentanyl and 4 mg of Zofran without significant relief. Regarding the known ventral hernia which she was seen locally by a surgeon who referred her to the [facility] for treatment. Her initial evaluation at [facility] they had told her she needed to lose weight before she had an elective surgery. She was able to lose some weight, but Subsequently she started to have some heart symptoms and needed a full cardiac work-up prior to consideration for hernia surgery. Subsequently the cardiac work-up was done and without worrisome findings, but she has regained the weight. Review of Systems Constitutional: denies: Fever, Chills Cardiac: denies: Chest pain / pressure, Palpitations Respiratory: denies: Dyspnea, Cough GI: reports: Abdominal Pain, Nausea. 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 : None HEENT: Chronic vision loss Psych: Depression, Anxiety, ADD/ADHD, Claustrophobia Musculoskeletal: Osteoarthritis, Fatigue, Chronic back pain Derm: None - Past Surgical History Past Surgical History: Yes General: Appendectomy, Bowel surgery Ortho: Spine surgery /BUILDING ENERGY CONSULTANT: Mastectomy - Present Medications Home Medications: Ambulatory Orders Medication Instructions Recorded Confirmed hydroCHLOROthiazide 25 mg PO DAILY 08/10/17 12/26/21 [Hydrochlorothiazide] Albuterol Sulfate [Proair 2 puffs INH Q4H PRN 03/02/18 12/26/21 Respiclick] Thyroid,Pork [[place] Thyroid] 120 mg PO QDAC 03/02/18 12/26/21 Venlafaxine HCl [Venlafaxine HCl 150 mg PO DAILY 03/02/18 12/19/21 ER] traZODone [Desyrel] 200 mg PO HS PRN 03/02/18 12/19/21 lisinopriL [Lisinopril] 10 mg PO DAILY 07/27/18 12/19/21 Ciprofloxacin [Cipro] 500 mg PO Q12H #40 tablet 12/16/21 12/19/21 Cyclobenzaprine [Flexeril] 10 mg PO Q8HR PRN 12/19/21 12/19/21 oxyCODONE [Roxicodone] 5 mg PO Q4-6H #6 tablet 12/26/21 Naproxen 500 mg PO BID 7 Days #14 tab 04/27/22 cephALEXin [Keflex] 500 mg PO QID #28 cap 04/27/22 oxyCODONE [Roxicodone] 5 mg PO Q6H PRN #12 tablet 04/27/22 Furosemide [Lasix] 20 mg PO DAILY 7 Days #7 tablet 05/01/22 Potassium Chloride [K-Dur] 20 meq PO DAILY #7 tablet 05/01/22 Amox/Clav 875/125 [Augmentin] 1 each PO Q12H #20 tablet 08/17/22 oxyCODONE [Roxicodone] 5 mg PO TID PRN #15 tablet 08/17/22 Amox/Clav 875/125 [Augmentin] 1 tab PO Q12H #20 tablet 08/23/22 Prochlorperazine Maleate 10 mg PO Q4HR PRN #10 tab 08/23/22 [Compazine] Abdominal Binder Belt 1 unit TD ONCE #1 ea 09/20/22 Oxycodone HCl/Acetaminophen 1 - 2 each PO Q6H PRN #14 tablet 09/20/22 [Percocet 5-325 mg Tablet] - Allergies Allergies/Adverse Reactions: Allergies Allergy/AdvReac Type Severity Reaction Status Date / Time adhesive tape Allergy Rash Verified 09/20/22 19:00 latex Allergy Rash Verified 09/20/22 19:00 tramadol Allergy Emesis Verified 09/20/22 19:00 gabapentin AdvReac Hallucinati Verified 09/20/22 19:00 ons hydrocodone bitartrate * AdvReac Itching Verified 09/20/22 19:00 [From Vicodin] - Social History Does the pt smoke?: No Smoking Status: Never smoker Does the pt drink ETOH?: No Does the pt have substance abuse?: No - Family History Family history: reports: Non contributory - Immunizations Immunizations are current?: Yes - POLST Patient has POLST: No POLST Status: Full Code PD ED PE NORMAL - Vitals Vital signs reviewed: Yes - General General: Alert and oriented X 3, Other (Retching and uncomfortable) - HEENT HEENT: PERRL, EOMI - Neck Neck: Supple, no meningeal sign, No bony TTP - Cardiac Cardiac: RRR, No murmur - Respiratory Respiratory: No respiratory distress, Clear bilaterally - Abdomen Abdomen: Other (She has a midline lower abdominal hernia that is soft. I am not able to reduce on initial evaluation but unfortunately the initial evaluation is she is sitting in the hallway in a chair. It is not tender. No clear bowel sounds, but it is also very loud in the hallway. Will reexamine when able.) - Back Back: No CVA TTP, No spinal TTP - Derm Derm: Normal color, Warm and dry - Extremities Extremities: No edema, No calf tenderness / cord - Neuro Neuro: Alert and oriented X 3, Normal speech Results - Vitals Vitals: Vital Signs - 24 hr 09/20/22 18:56 Temperature 36.8 C Heart Rate 104 H Respiratory 20 Rate Blood Pressure 151/89 H O2 Saturation 98 Oxygen O2 Source Room air - Labs Labs: Laboratory Tests 09/20/22 09/20/22 09/20/22 18:47 18:47 18:47 WBC 9.3 RBC 4.97 Hgb 14.6 Hct 44.0 MCV 88.5 MCH 29.4 MCHC 33.2 RDW 13.8 Plt Count 252 MPV 9.5 Neut # (Auto) 5.2 Lymph # (Auto) 2.7 Dunn # (Auto) 0.8 Eos # (Auto) 0.4 Baso # (Auto) 0.1 Absolute Nucleated RBC 0.00 Nucleated RBC % 0.0 PT 10.5 INR 0.9 Sodium 133 L Potassium 4.1 Chloride 97 L Carbon Dioxide 24 Anion Gap 12.0 BUN 23 H Creatinine 1.1 H Estimated GFR (MDRD) 50 L Glucose 156 H Calcium 11.0 H Total Bilirubin 0.6 AST 35 ALT 43 Alkaline Phosphatase 91 Total Protein 7.6 Albumin 4.1 Globulin 3.5 Albumin/Globulin Ratio 1.2 Lipase 24 PD Medical Decision Making - ED course ED course: I was able to reexamine her approximately 6:58 PM now that she is in her room. The hernia is soft albeit tender. I am able to partially reduce it. CBC = normal CMP = mild dehraydtion PT = normal CT A/P inerpt indep/report reviewed- NAD, no obstruction Has hernia, known, Needs fixed. No EMC. Pain tx Understands need for tertiary re-eval for surgery., Departure - Departure Disposition: 01 Home, Self Care Clinical Impression: Ventral hernia Condition: Good Record reviewed to determine appropriate education?: Yes Prescriptions: Abdominal Binder Belt 1 unit TD ONCE #1 ea Oxycodone HCl/Acetaminophen [Percocet 5-325 mg Tablet] 1 - 2 each PO Q6H PRN #14 tablet PRN Reason: pain Comments: I sent your prescriptions electronically to [facility] in [place]. Follow-up with your surgeon at the [facility] for evaluation for definitive repair. The policy of this emergency department is to not give more than 3 prescriptions for narcotics or other controlled substances in any 1 year. You have already surpassed this benchmark and we cannot prescribe narcotics for you. I encourage you to follow up with your primary care physician or to establish care with a primary care physician for ongoing pain management. You are always welcome to seek emergency care here for this or new issues but there will likely be limitations in the prescription of narcotic pain medication. I am prescribing a short course of narcotic pain medication for you. These are potentially dangerous and addictive medications that should be used carefully. These medications may constipate you. Take an gyxd-tfg-prnvfvy stool softener (docusate) twice daily with plenty of water while taking these medications. If you go 24 hours without a bowel movement, take [id number] miralax, per package instructions. Do not drink or drive while taking these medications. If you received narcotic or sedating medications while in the emergency department, do not drive for 24 hours. Store this medication in a safe, secure place and out of reach of children. It is a violation of federal law to give or sell this medication to another person or to use in a manner other than prescribed. The ED will not refill narcotic prescriptions, including prescriptions lost or stolen. To dispose of unwanted medications: 1. [facility] [address] in [place] has a medication drop box. They accept prescription medications (in pill form) Friday through Friday 9:00 a.m. to 5:00 p.m. 2. The [facility] accepts prescription medications (in pill form only) for disposal year round. Call for more information. 3. Contact the [facility] for the next [facility] sponsored prescription drug collection event. , [phone], or [phone]; Note that many narcotic pain relievers also contain Tylenol/acetaminophen. Please ensure that your total dose of acetaminophen from all sources does not exceed 3 g (3000 mg) per day. Discharge Date/Time: 09/20/22 21:23
[2022-09-20] MEDS ORDERED: iohexoL-300 100 ML VIAL ONE (18:42)
[2022-09-20 18:52] LABS: BASOPHILS % (AUTO) 1.5 %; EOSINOPHILS # (AUTO) 0.4 10^3/uL (0.0-0.7); EOSINOPHILS % (AUTO) 4.1 %; HGB - HEMOGLOBIN 14.6 g/dL (12.0-16.0); LYMPHOCYTES # (AUTO) 2.7 10^3/uL (1.5-3.5); LYMPHOCYTES % (AUTO) 29.2 %; MEAN CORPUSCULAR HEMOGLOBIN 29.4 pg (27.0-31.0); MEAN CORPUSCULAR HGB CONC 33.2 g/dL (32.0-36.0); MEAN CORPUSCULAR VOLUME 88.5 fL (81.0-99.0); MEAN PLATELET VOLUME 9.5 fL (7.9-10.8); MONOCYTES # (AUTO) 0.8 10^3/uL (0.0-1.0); MONOCYTES % (AUTO) 8.5 %; NEUTROPHILS # (AUTO) 5.2 10^3/uL (1.5-6.6); NEUTROPHILS % (AUTO) 56.3 %; PLT - PLATELET COUNT 252 10^3/uL (130-450); RED BLOOD COUNT 4.97 10^6/uL (4.20-5.40); RED CELL DISTRIBUTION WIDTH 13.8 % (12.0-15.0); WHITE BLOOD COUNT 9.3 x10^3/uL (4.8-10.8)
[2022-09-20 18:53] LABS: BASOPHILS # (AUTO) 0.1 10^3/uL (0.0-0.1)
[2022-09-20 19:00] VITALS: BP 151/89
[2022-09-20 19:02] LABS: INR 0.9 (0.8-1.2); PT - PROTHROMBIN TIME 10.5 secs (9.9-12.6)
[2022-09-20 19:07] LABS: ALBUMIN 4.1 g/dL (3.2-5.5); ALBUMIN/GLOBULIN RATIO 1.2 (1.0-2.2); BILIRUBIN,TOTAL 0.6 mg/dL (0.2-1.0); CREATININE 1.1 mg/dL (0.4-1.0); POTASSIUM 4.1 mmol/L (3.5-5.0); TOTAL PROTEIN 7.6 g/dL (6.7-8.2)
[2022-09-20] MEDS ORDERED: iohexoL-300 100 ML VIAL IVP ONE (19:49)
--- NOTE | 2022-09-20 20:21 | CT Report ---
PROCEDURE: ABDOMEN/PELVIS W INDICATIONS: hernia pain CONTRAST: 100 ML OMNI 300 TECHNIQUE: After the administration of intravenous contrast, 5 mm thick sections acquired from the diaphragms to the symphysis. 5 mm thick coronal and sagittal reformats were acquired. For radiation dose reducti on, the following was used: automated exposure control, adjustment of mA and/or kV according to tim ent size. COMPARISON: CT abdomen pelvis 08/17/2022, 04/03/2022. FINDINGS: Image quality: There is motion artifact and metallic streak artifact limiting evaluation. Lung bases:Mild dependent atelectasis is present. Heart: Heart is normal in size. ABDOMEN: Liver:There is diffuse hypoattenuation of the liver consistent with fatty infiltration. Gallbladder: Within normal limits without calcified gallstones. Biliary ducts: No biliary ductal dilatation. Pancreas: Unremarkable. Spleen: Normal in size. Adrenal Glands:There is mild thickening of the left adrenal gland redemonstrated. Kidneys and Ureters: No hydronephrosis. Stomach and Bowel: Stomach, small bowel loops, and colon are normal in caliber and wall thickness. N o pericecal inflammatory changes to suggest appendicitis. There is colonic diverticulosis without acu te diverticulitis. Peritoneum: No abnormal intraperitoneal fluid. No free air. Ventral Wall: There is a widemouth ventral abdominal hernia inferiorly within the abdomen containing loops of small and large bowel. No evidence of associated bowel obstruction or definite strangulatio n. A smaller fat-containing midline ventral abdominal hernia is demonstrated within the upper abdomen . Abdominal Nodes: No retroperitoneal or mesenteric adenopathy by size criteria. Vessels: Aorta and inferior vena cava are normal in size. PELVIS: Pelvic Organs: Unremarkable. Bladder: Unremarkable. Pelvic Nodes: No enlarged lymph nodes. Miscellaneous: No inguinal hernias. Bones: Postsurgical changes are redemonstrated status post posterior fixation at T10-L4. There is an intervertebral spacer redemonstrated at L2-L3 with widening of the disc space anteriorly and mild ant erolisthesis. Findings are similar to the prior studies. Visualized osseous structures demonstrate no suspicious lesions. IMPRESSION: 1. Wide mouth ventral abdominal hernia in the lower abdomen containing loops of small and large bowel redemonstrated. No evidence of associated bowel obstruction or strangulation. 2. Colonic diverticulosis without acute diverticulitis. Reviewed by: Selvin Kay MD on 09/20/2022 8:20 PM PST Approved by: Selvin Kay MD on 09/20/2022 8:20 PM PST Station ID: [id number]
== END 2022-09-20 21:23 | disposition home or self-care (01) ==
LOC: ED 18:16
DX: K43.9 Ventral hernia without obstruction or gangrene (principal); I10 Essential (primary) hypertension
CPT/HCPCS: 36415; 74177; 80053; 83690; 85025; 85610; 96361; 96374; 96375; 96376; 99284; J1170; J2765; Q9967

== ENCOUNTER 2022-11-02 04:23 | Outpatient (CLI) | payer MEDICAID | END 2022-11-02 04:24 | disposition critical access hospital (66) | LOC: EMS 04:23 | DX: R10.31 Right lower quadrant pain (principal); R11.10 Vomiting, unspecified; K46.9 Unspecified abdominal hernia without obstruction or gangrene | CPT/HCPCS: A0425; A0427; A0999 ==

== ENCOUNTER 2022-11-02 04:45 | Emergency (ER) | payer MEDICAID ==
--- OUTSIDE RECORDS SUMMARY | 2022-11-02 05:02 | EXTERNAL MEDICAL SUMMARY RPT | Continuity of Care Document ---
:1960 Author Organization [facility] Address [address] [place] [address] Phone Care Team Providers Name Role Phone Unavailable Unavailable Unavailable Harpal, Provider Unavailable Unavailable Allergies No information. Encounters No information. Functional Status No information. Immunizations No information. Medications date description facility 2022-08-18 00:00 furosemide Walk-In Clinic Prim adan [...] [facility] 2022-08-18 00:00 furosemide [facility] 2022-08-19 00:00 furosemide [facility] 2022-08-18 00:00 naloxone [facility] 2022-08-19 00:00 naloxone [facility] Problems No information. Procedures No information. Results/Labs test date author facility value unit [...] [facility] Result panel 10 (unknown) (no (unknown) Walk-In Clinic (no (units ( unknown) date) [facility] Care & value) unknown) [facility] Result panel 11 (unknown) (no date) (unknown) [...] [facility] Social History No information. Vital Signs No information.
[2022-11-02 05:04] LABS: BASOPHILS # (AUTO) 0.1 10^3/uL (0.0-0.1); BASOPHILS % (AUTO) 1.4 %; EOSINOPHILS # (AUTO) 0.4 10^3/uL (0.0-0.7); EOSINOPHILS % (AUTO) 5.2 %; HCT - HEMATOCRIT 42.2 % (37.0-47.0); LYMPHOCYTES # (AUTO) 3.3 10^3/uL (1.5-3.5); LYMPHOCYTES % (AUTO) 41.3 %; MEAN CORPUSCULAR HGB CONC 33.2 g/dL (32.0-36.0); MEAN CORPUSCULAR VOLUME 90.6 fL (81.0-99.0); MEAN PLATELET VOLUME 9.7 fL (7.9-10.8); MONOCYTES # (AUTO) 0.7 10^3/uL (0.0-1.0); MONOCYTES % (AUTO) 8.2 %; NEUTROPHILS # (AUTO) 3.4 10^3/uL (1.5-6.6); NEUTROPHILS % (AUTO) 43.5 %; PLT - PLATELET COUNT 269 10^3/uL (130-450); RED BLOOD COUNT 4.66 10^6/uL (4.20-5.40); RED CELL DISTRIBUTION WIDTH 12.7 % (12.0-15.0); WHITE BLOOD COUNT 7.9 x10^3/uL (4.8-10.8)
[2022-11-02 05:19] LABS: ALBUMIN 4.2 g/dL (3.2-5.5); ALBUMIN/GLOBULIN RATIO 1.2 (1.0-2.2); BILIRUBIN,TOTAL 0.8 mg/dL (0.2-1.0); CALCIUM 10.1 mg/dL (8.5-10.3); CREATININE 0.9 mg/dL (0.4-1.0); POTASSIUM 3.5 mmol/L (3.5-5.0); TOTAL PROTEIN 7.8 g/dL (6.7-8.2)
[2022-11-02] MEDS ORDERED: ONDANSETRON 4 MG/2 ML VIAL IVP STA (05:21)
[2022-11-02] MEDS ORDERED: SODIUM CHLORIDE 0.9% 1,000 ML IV STA (05:21)
[2022-11-02] MEDS ORDERED: HYDROmorphone 1 MG/ML CARPUJECT IVP STA ×2 (05:21→07:20)
--- NOTE | 2022-11-02 05:25 | ED Physician Documentation ---
PD HPI ABD PAIN - Stated complaint Stated Complaint: ABD PX - Chief complaint Chief Complaint: Abd Pain - History obtained from History obtained from: Patient, EMS - History of Present Illness Quality: Sharp, Pain Location: Epigastric, Periumbilical Radiation: Lower back Improved by: Laying still Worsened by: Moving, Position, Palpation Associated symptoms: Nausea, Vomiting. No: Fever, Diarrhea, Constipation Similar symptoms before: Diagnosis (diverticultitis) Recently seen: Emergency Dept - Additional information Additional information: Anny Muro is a 62-year-old female with a history of diverticulitis she has had a subtotal total colon resection and following that she has developed a ventral hernia. She has been into the emergency department a number of times with pain complaints and these have either been related to her hernia or diverticulitis. She has had 17 CT scans of the abdomen and pelvis in the past 5 years and 5 of them in the last year. She usually has improvement in her pain with use of antibiotics and she usually requires pain medication. She is not prescribed pain medications on any regular basis. 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 HEENT: Chronic vision loss Psych: Depression, Anxiety, ADD/ADHD, Claustrophobia Musculoskeletal: Osteoarthritis, Fatigue, Chronic back pain Derm: None - Past Surgical History Past Surgical History: Yes General: Appendectomy, Bowel surgery Ortho: Spine surgery /MAGISTERIAL DISTRICT JUDGE: Mastectomy - Present Medications Home Medications: Ambulatory Orders Medication Instructions Recorded Confirmed hydroCHLOROthiazide 25 mg PO DAILY 08/10/17 11/02/22 [Hydrochlorothiazide] Albuterol Sulfate [Proair 2 puffs INH Q4H PRN 03/02/18 11/02/22 Respiclick] Thyroid,Pork [[place] Thyroid] 120 mg PO QDAC 03/02/18 11/02/22 Venlafaxine HCl [Venlafaxine HCl 150 mg PO DAILY 03/02/18 11/02/22 ER] traZODone [Desyrel] 200 mg PO HS PRN 03/02/18 11/02/22 lisinopriL [Lisinopril] 10 mg PO DAILY 07/27/18 11/02/22 Cyclobenzaprine [Flexeril] 10 mg PO Q8HR PRN 12/19/21 11/02/22 Furosemide [Lasix] 20 mg PO DAILY 7 Days #7 tablet 05/01/22 11/02/22 Potassium Chloride [K-Dur] 20 meq PO DAILY #7 tablet 05/01/22 11/02/22 Prochlorperazine Maleate 10 mg PO Q4HR PRN #10 tab 08/23/22 11/02/22 [Compazine] - Allergies Allergies/Adverse Reactions: Allergies Allergy/AdvReac Type Severity Reaction Status Date / Time adhesive tape Allergy Rash Verified 11/02/22 04:55 latex Allergy Rash Verified 11/02/22 04:55 tramadol Allergy Emesis Verified 11/02/22 04:55 gabapentin AdvReac Hallucinati Verified 11/02/22 04:55 ons hydrocodone bitartrate * AdvReac Itching Verified 11/02/22 04:55 [From Vicodin] - Social History Does the pt smoke?: No Smoking Status: Never smoker Does the pt drink ETOH?: No Does the pt have substance abuse?: No - Immunizations Immunizations are current?: Yes - POLST Patient has POLST: No POLST Status: Full Code PD ED PE NORMAL - Vitals Vital signs reviewed: Yes (normal ) - General General: Alert and oriented X 3, No acute distress, Well developed/nourished - HEENT HEENT: Atraumatic, PERRL - Neck Neck: Supple, no meningeal sign, No bony TTP - Cardiac Cardiac: RRR, No murmur - Respiratory Respiratory: No respiratory distress, Clear bilaterally - Abdomen Abdomen: Normal bowel sounds, Soft, Other (There is a large ventral hernia defect and the contents can be reduced partially but the hernia is wide open. The patient complains of pain without garding or rebound pain. Pain referred to the back and epigastrium. ) - Back Back: No CVA TTP, No spinal TTP - Derm Derm: Normal color, Warm and dry, No rash - Extremities Extremities: No deformity, No edema - Neuro Neuro: Alert and oriented X 3, issue clerk 2-12 intact, No motor deficit, No sensory deficit, Normal speech Eye Opening: Spontaneous Motor: Obeys Commands Verbal: Oriented GCS Score: 15 - Psych Psych: Normal mood, Normal affect Results - Vitals Vitals: Vital Signs - 24 hr 11/02/22 11/02/22 11/02/22 04:45 05:34 06:08 Temperature 37.2 C Heart Rate 87 81 74 Respiratory 20 18 16 Rate Blood Pressure 123/82 H 121/71 136/73 H O2 Saturation 98 98 98 11/02/22 06:33 Temperature Heart Rate 77 Respiratory 16 Rate Blood Pressure 131/73 H O2 Saturation 100 Oxygen O2 Source Room air - Labs Labs: Laboratory Tests 11/02/22 11/02/22 04:55 04:55 WBC 7.9 RBC 4.66 Hgb 14.0 Hct 42.2 MCV 90.6 MCH 30.0 MCHC 33.2 RDW 12.7 Plt Count 269 MPV 9.7 Neut # (Auto) 3.4 Lymph # (Auto) 3.3 Benzie # (Auto) 0.7 Eos # (Auto) 0.4 Baso # (Auto) 0.1 Absolute Nucleated RBC 0.00 Nucleated RBC % 0.0 Sodium 135 Potassium 3.5 Chloride 97 L Carbon Dioxide 28 Anion Gap 10.0 BUN 25 H Creatinine 0.9 Estimated GFR (MDRD) 63 L Glucose 118 H Calcium 10.1 Total Bilirubin 0.8 AST 31 ALT 41 Alkaline Phosphatase 93 Total Protein 7.8 Albumin 4.2 Globulin 3.6 Albumin/Globulin Ratio 1.2 Lipase 28 Procedures - IVC sono (time) 0520 Bedside IVC sono: IVC measures (cm) (.79), Dehydration (est 2+ liter deficit) PD Medical Decision Making - ED course Complexity details: reviewed old records, reviewed results, re-evaluated patient, considered differential, d/w patient Reviewed Lab Results: CBC: normal WBC, H &H, normal indicies. Chemistries: Normal electrolytes BUN elevated at 25 consistent with dehydration. Procedural Risk Factors Specific to Patient: The patient has been scanned 5 times in the past year and 17 times in the the past 5 years ED course: 62-year-old male knee pain presents to the emergency department again today with abdominal pain. She has had some vomiting over the last 3 days and is dehydrat ed on interrogation of the inferior vena cava with POCUS. She is administered intravenous saline as well as Dilaudid and Zofran for pain control. She does have pain down into the right sciatic notch and she is administered a dose of dexamethasone as well.At shift change a CT scan of the abdomen pelvis is pending and care is turned over to the capable Dr. Lazaro. Departure - Departure Clinical Impression: Dehydration Abdominal pain Qualifiers: Abdominal location: generalized Qualified Code(s): R10.84 - Generalized abdominal pain Follow-Up: Kathleen Asher MD [Provider Admit Priv/Credential] -
[2022-11-02] MEDS ORDERED: iohexoL-300 100 ML VIAL ONE (05:52)
[2022-11-02] MEDS ORDERED: DEXAMETHASONE 10 MG/ML VIAL IVP STA (06:22)
[2022-11-02] MEDS ORDERED: iohexoL-300 100 ML VIAL IVP ONE (07:11)
[2022-11-02 07:17] LABS: BILIRUBIN,URINE NEGATIVE (NEGATIVE); GLUCOSE, URINE (UA) NEGATIVE (NEGATIVE); KETONES,URINE (UA) NEGATIVE (NEGATIVE); LEUKOCYTE ESTERASE, URINE NEGATIVE (NEGATIVE); NITRITE,URINE NEGATIVE (NEGATIVE); OCCULT BLOOD,URINE NEGATIVE (NEGATIVE); PH,URINE 5.5 PH (5.0-7.5); PROTEIN,URINE NEGATIVE (NEGATIVE); UROBILINOGEN,URINE 0.2 (NORMAL) E.U./dL (NORMAL)
[2022-11-02] MEDS ORDERED: SODIUM CHLORIDE 0.9% 500 ML IV STA (07:20)
[2022-11-02 07:25] LABS: CLARITY,URINE CLEAR (CLEAR)
--- NOTE | 2022-11-02 07:39 | ED Physician Documentation ---
ED Addendum - Addendum Addendum: 11/02/22 07:37 Patient signed out to me at shift change by Dr. Ramos, Pending reevaluation and follow-up CT results. CT Abdomen pelvis read from teleradiology states 1 no acute findings. 2 hepatomegaly with diffuse hepatic steatosis. [address] results with the patient. She has been feeling better here. She is still waiting for appointments with specialists and surgeons to discuss definitive care for her hernia.She request pain medications for home. I did review her prior visits. She has received several narcotic prescriptions from the emergency department although some of these encounters are when she has had episodes of diverticulitis.I did explain I would give her a small amount of narcotics given that it is a weekend but that further prescriptions should be obtained from her primary care doctor unless a clear etiology is found. Abdominal exam demonstrates a large ventral wall hernia which is soft and consistent with prior notes. No signs of incarceration or strangulation. Departure - Departure Disposition: Home, Self Care Clinical Impression: Dehydration Abdominal pain Qualifiers: Abdominal location: generalized Qualified Code(s): R10.84 - Generalized abdominal pain Ventral hernia Qualifiers: Obstruction and gangrene presence: without obstruction or gangrene Qualified Code(s): K43.9 - Ventral hernia without obstruction or gangrene Condition: Stable Instructions: ED Abdominal Pain Female Non-Specific Abdominal Pain Follow-Up: Kathleen Asher MD [Provider Admit Priv/Credential] - Prescriptions: Oxycodone HCl/Acetaminophen [Percocet 5-325 mg Tablet] 1 each PO Q6H PRN #10 tablet PRN Reason: pain Comments: The exact cause for your abdominal pain today is unclear. You do need close follow-up. Please follow-up with your primary care doctor and specialists/surgeons regarding your abdominal pain. In the past year you have received several prescriptions for narcotic medications through the emergency department. While in the past we have at times found reasons for your pain such as diverticulitis, other times there has not been a clear reason found such as today. I will send a small amount of pain medication to your pharmacy but further prescriptions when a clear etiology is not found will likely need to come from your primary care doctor or specialist and not through the emergency department. I have sent your prescriptions to [facility] in [place]. I am prescribing a short course of narcotic pain medication for you. These are potentially dangerous and addictive medications that should be used carefully. These medications may constipate you. Take an [id number] stool softener (docusate) twice daily with plenty of water while taking these medications. If you go 24 hours without a bowel movement, take [id number]-[id number] miralax, per package instructions. Do not drink or drive while taking these medications. If you received narcotic or sedating medications while in the emergency department, do not drive for 24 hours. Store this medication in a safe, secure place and out of reach of children. It is a violation of federal law to give or sell this medication to another person or to use in a manner other than prescribed. The ED will not refill narcotic prescriptions, including prescriptions lost or stolen. To dispose of unwanted medications: 1. [facility] at [address] in [place] has a medication drop box. They accept prescription medications (in pill form) Friday through Friday 9:00 a.m. to 5:00 p.m. 2. The [facility] [employer] accepts prescription medications (in pill form only) for disposal year round. Call for more informat ion. 3. Contact the [facility] for the next [facility] sponsored prescription drug collection event. , [phone], or [phone]; Note that many narcotic pain relievers also contain Tylenol/acetaminophen. Please ensure that your total dose of acetaminophen from all sources does not exceed 3 g (3000 mg) per day.
--- NOTE | 2022-11-02 08:06 | CT Report ---
PROCEDURE: ABDOMEN/PELVIS W INDICATIONS: abdominal pain hx of diverticulitis CONTRAST: 100 ML OMNI 300 TECHNIQUE: After the administration of intravenous contrast, 5 mm thick sections acquired from the diaphragms to the symphysis. 5 mm thick coronal and sagittal reformats were acquired. For radiation dose reducti on, the following was used: automated exposure control, adjustment of mA and/or kV according to tim ent size. COMPARISON: CT abdomen pelvis 09/20/2022 FINDINGS: Visualized lung bases: No pleural effusion. Liver and biliary tree: Diffuse hypoattenuation of the liver suggestive of fatty infiltration. No emigdio iary ductal dilation. Gallbladder: No radiopaque cholelithiasis. Spleen: Unremarkable. Pancreas: Unremarkable. Adrenal glands: Unremarkable. Kidneys and ureters: No hydronephrosis. Gastrointestinal tract and abdominal wall: Large ventral hernia containing nondilated small bowel and colon present as before. No evidence of mechanical bowel obstruction at this time. Rectosigmoid colo stef anastomosis present. Mild predominantly sigmoid colonic diverticulosis without evidence of acute diverticulitis. Peritoneal cavity: No free air or free fluid. Bladder: Unremarkable. Pelvic organs: Unremarkable CT appearance. Vasculature: No abdominal aortic aneurysm. Musculoskeletal: Degenerative change of the spine. Thoracolumbar fusion changes redemonstrated. IMPRESSION: No acute abnormality identified within the abdomen or pelvis. Large ventral hernia containing fat and nondilated small bowel and colon present as before. This report is concordant with the preliminary report. Reviewed by: Hardik Laura MD on 11/02/2022 8:05 AM [facility] Approved by: Hardik Laura MD on 11/02/2022 8:05 AM PST Station ID: [id number]
[2022-11-02 08:39] VITALS: BP 145/77
== END 2022-11-02 08:39 | disposition home or self-care (01) ==
LOC: EDUNIT# → EDBD → ED 04:45
DX: E86.0 Dehydration (principal); R10.84 Generalized abdominal pain
CPT/HCPCS: 36415; 74177; 80053; 81003; 83690; 85025; 96361; 96374; 96375; 96376; 99284; J1170; Q9967; 81001; 87086

== ENCOUNTER 2023-02-24 05:42 | Outpatient (CLI) | payer MEDICAID | END 2023-02-24 23:59 | disposition critical access hospital (66) | LOC: EMS 05:42 | DX: R10.9 Unspecified abdominal pain (principal); V86.55XA Driver of 3- or 4- wheeled all-terrain vehicle (ATV) injured in nontraffic accident, initial encounter; Y93.I9 Activity, other involving external motion; K46.9 Unspecified abdominal hernia without obstruction or gangrene | CPT/HCPCS: A0425; A0427; A0999 ==

== ENCOUNTER 2023-02-24 06:07 | Emergency (ER) | payer MEDICAID ==
[2023-02-24] MEDS ORDERED: HYDROmorphone 1 MG/ML CARPUJECT IVP STA ×2 (06:18→09:06)
[2023-02-24 06:30] LABS: BASOPHILS # (AUTO) 0.1 10^3/uL (0.0-0.1); BASOPHILS % (AUTO) 1.5 %; EOSINOPHILS # (AUTO) 0.4 10^3/uL (0.0-0.7); EOSINOPHILS % (AUTO) 6.1 %; HCT - HEMATOCRIT 39.8 % (37.0-47.0); HGB - HEMOGLOBIN 13.2 g/dL (12.0-16.0); LYMPHOCYTES # (AUTO) 2.3 10^3/uL (1.5-3.5); LYMPHOCYTES % (AUTO) 34.9 %; MEAN CORPUSCULAR HEMOGLOBIN 30.3 pg (27.0-31.0); MEAN CORPUSCULAR HGB CONC 33.2 g/dL (32.0-36.0); MEAN CORPUSCULAR VOLUME 91.3 fL (81.0-99.0); MEAN PLATELET VOLUME 9.9 fL (7.9-10.8); MONOCYTES # (AUTO) 0.5 10^3/uL (0.0-1.0); MONOCYTES % (AUTO) 7.8 %; NEUTROPHILS # (AUTO) 3.2 10^3/uL (1.5-6.6); NEUTROPHILS % (AUTO) 49.2 %; PLT - PLATELET COUNT 239 10^3/uL (130-450); RED BLOOD COUNT 4.36 10^6/uL (4.20-5.40); RED CELL DISTRIBUTION WIDTH 12.8 % (12.0-15.0); WHITE BLOOD COUNT 6.5 x10^3/uL (4.8-10.8)
[2023-02-24] MEDS ORDERED: PROMETHAZINE INJ 25 MG in SODIUM CHLORIDE 0.9% 50 ML IV STA (06:32)
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
[2023-02-24 06:37] LABS: INR 0.9 (0.8-1.2); PT - PROTHROMBIN TIME 10.3 secs (9.9-12.6)
[2023-02-24] MEDS ORDERED: iohexoL-300 100 ML VIAL ONE (06:42)
[2023-02-24] MEDS ORDERED: PROMETHAZINE 25 MG/1 ML VIAL ONE (06:43)
[2023-02-24 06:44] LABS: ALBUMIN 3.7 g/dL (3.2-5.5); BILIRUBIN,TOTAL 0.5 mg/dL (0.2-1.0); CALCIUM 9.4 mg/dL (8.5-10.3); CREATININE 0.8 mg/dL (0.4-1.0); POTASSIUM 3.8 mmol/L (3.5-5.0); TOTAL PROTEIN 7.3 g/dL (6.7-8.2)
[2023-02-24] MEDS ORDERED: iohexoL-300 100 ML VIAL IVP ONE (07:26)
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
[2023-02-24 09:07] LABS: BILIRUBIN,URINE NEGATIVE (NEGATIVE); GLUCOSE, URINE (UA) NEGATIVE (NEGATIVE); KETONES,URINE (UA) NEGATIVE (NEGATIVE); LEUKOCYTE ESTERASE, URINE NEGATIVE (NEGATIVE); NITRITE,URINE NEGATIVE (NEGATIVE); OCCULT BLOOD,URINE NEGATIVE (NEGATIVE); PH,URINE 5.5 PH (5.0-7.5); PROTEIN,URINE NEGATIVE (NEGATIVE); UROBILINOGEN,URINE 0.2 (NORMAL) E.U./dL (NORMAL)
[2023-02-24] MEDS ORDERED: KETOROLAC 15 MG/ML VIAL IVP STA (09:07)
[2023-02-24 09:11] LABS: CLARITY,URINE CLEAR (CLEAR)
[2023-02-24 09:27] VITALS: BP 118/72
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
== END 2023-02-24 09:42 | disposition home or self-care (01) ==
LOC: EDUNIT# → ED 06:07
DX: S30.1XXA Contusion of abdominal wall, initial encounter (principal); M54.50 Low back pain, unspecified; V86.95XA Unspecified occupant of 3- or 4- wheeled all-terrain vehicle (ATV) injured in nontraffic accident, initial encounter
CPT/HCPCS: 36415; 74177; 80053; 81003; 83690; 85025; 85610; 96365; 96375; 96376; 99284; J1170; J7040; Q9967; 81001; 87086

== ENCOUNTER 2023-04-30 07:22 | Day surgery (SDC) | payer MEDICAID ==
[2023-04-30] MEDS ORDERED: ACETAMINOPHEN 500 MG TABLET PO ONE (07:34)
[2023-04-30] MEDS ORDERED: GABAPENTIN 400 MG CAPSULE ONE (07:34)
[2023-04-30] MEDS ORDERED: LACTATED RINGERS 1,000 ML IV ONE ×2 (08:05→09:52)
[2023-04-30] MEDS ORDERED: BUPIVACAINE 0.5% PF 10 ML VIAL ONE (08:40)
[2023-04-30] MEDS ORDERED: LIDOCAINE 1%-EPI 1:100000 20 ML MDV ONE (08:40)
[2023-04-30] MEDS ORDERED: NALOXONE 0.4 MG/ML VIAL IVP PRN (08:45)
[2023-04-30] MEDS ORDERED: ATROPINE ABBOJECT 1 MG/10 ML SYRINGE IVP PRN (08:45)
[2023-04-30] MEDS ORDERED: HYDROmorphone 0.5 MG/0.5 ML SYRINGE IVP PRN (08:45)
[2023-04-30] MEDS ORDERED: ePHEDrine 50 MG/ML VIAL IVP PRN (08:45)
[2023-04-30] MEDS ORDERED: ONDANSETRON 4 MG/2 ML VIAL IVP PRN (08:45)
[2023-04-30] MEDS ORDERED: MORPHINE 2 MG/ML CARPUJECT IVP PRN (08:45)
[2023-04-30] MEDS ORDERED: METOCLOPRAMIDE 10 MG/2 ML VIAL IVP PRN (08:45)
[2023-04-30] MEDS ORDERED: fentaNYL 100 MCG/2 ML VIAL IVP PRN (08:45)
--- NOTE | 2023-04-30 08:45 | ANESTHESIA ---
Pre-Anesthesia VS, & Labs - Diagnosis triggering R 3rd and 4th fingers - Procedure trigger release R 3rd and 4th fingers Vital Signs: Temp Pulse Resp BP Pulse Ox O2 Flow Rate 36.2 C L 88 14 112/78 97 0 04/30/23 07:48 04/30/23 07:48 04/30/23 07:48 04/30/23 07:48 04/30/23 07:48 04/30/23 07:48 Height: 5 ft 2 in Weight (kg): 94 kg Body Mass Index: 37.9 BMI Classification: Obese - NPO >8 hours Last Fluid Intake: sips with tylenol - Is Patient ?: No - Lab Results Lab results reviewed: Yes Home Medications and Allergies Home Medications: Ambulatory Orders Furosemide [Lasix] 40 mg PO DAILY 04/28/23 Ibuprofen [Motrin] 600 mg PO Q6H PRN 04/28/23 hydroCHLOROthiazide [Hydrochlorothiazide] 25 mg PO DAILY 08/10/17 Albuterol Sulfate [Proair Respiclick] 2 puffs INH Q4H PRN 03/02/18 Thyroid,Pork [[place] Thyroid] 120 - 180 mg PO QDAC 03/02/18 Venlafaxine HCl [Venlafaxine HCl ER] 150 mg PO BID 03/02/18 traZODone [Desyrel] 200 mg PO HS PRN 03/02/18 lisinopriL [Lisinopril] 10 mg PO DAILY 07/27/18 Furosemide [Lasix] 40 mg PO DAILY 04/28/23 Ibuprofen [Motrin] 600 mg PO Q6H PRN 04/28/23 Allergies/Adverse Reactions: Allergies Allergy/AdvReac Type Severity Reaction Status Date / Time adhesive tape Allergy Rash Verified 02/24/23 06:23 latex Allergy Rash Verified 02/24/23 06:23 tramadol Allergy Emesis Verified 02/24/23 06:23 gabapentin AdvReac Hallucinati Verified 02/24/23 06:23 ons hydrocodone bitartrate * AdvReac Itching Verified 02/24/23 06:23 [From Vicodin] Anes History & Medical History - Anesthetic History Anesthesia Complications: reports: No previous complications Family history of Anesthesia Complications: Denies Family history of Malignant Hyperthermia: Denies - Medical History Cardiovascular: reports: Hypertension, Murmur Pulmonary: reports: Asthma, Shortness of breath Gastrointestinal: reports: Diverticulitis Urinary: reports: None Neuro: reports: Headaches, Motion sickness Musculoskeletal: reports: Osteoarthritis, Fatigue, Chronic back pain Endocrine/Autoimmune: reports: HyPOthyroidism Blood Disorders: reports: None Skin: reports: None Smoking Status: Never smoker - Surgical History General: reports: Appendectomy, Bowel surgery, Colonoscopy, EGD Gynecologic: reports: Oophrectomy, Mastectomy Orthopedic: reports: Spine surgery Exam General: Alert, Oriented x3, Cooperative Dental: Loose/Frag, Poor dentition Mouth Openin Fingerbreadth Neck Mobility: Normal Mallampati classification: II Thyromental Distance: 4-6 cm Respiratory: Lungs clear, Normal breath sounds, No respiratory distress Cardiovascular: Regular rate Neurological: Normal speech Mental/Cognitive Status: Alert/Oriented X3, Normal for patient Cognitive Status: Within normal limits Plan Anesthesia Type: Total IV Consent for Procedure(s) Verified and Reviewed: Yes Code Status: Attempt Resuscitation ASA classification: 2-Mild systemic disease Is this case an emergency?: No
[2023-04-30] MEDS ORDERED: KETAMINE 200 MG/20 ML VIAL ONE (08:54)
[2023-04-30] MEDS ORDERED: PROPOFOL 200 MG/20 ML VIAL IVP ONE (08:55)
[2023-04-30] MEDS ORDERED: MIDAZOLAM 2 MG/2 ML VIAL ONE (08:55)
[2023-04-30] MEDS ORDERED: LACTATED RINGERS 1,000 ML IV SCH (09:00)
[2023-04-30] MEDS ORDERED: ONDANSETRON 4 MG/2 ML VIAL ONE (09:09)
[2023-04-30] MEDS ORDERED: BUPIVACAINE 0.5% PF 30 ML VIAL INFIL ONE ×2 (09:26→09:53)
[2023-04-30] MEDS ORDERED: LIDOCAINE 1%-EPI 1:100000 30 ML MDV SUBQ ONE ×2 (09:26→09:53)
--- NOTE | 2023-04-30 09:47 | OPERATIVE REPORT ---
Operative Report - General Procedure Date: 04/30/23 Planned Procedure: Flexor tendon sheath release right third and fourth fingers Pre-Op Diagnosis: Triggering right third and fourth fingers Procedure Performed: Flexor tendon sheath releases third and fourth fingers, right hand Post Op Diagnosis: Same as preoperative diagnosis - Procedure Note Primary Surgeon: Matti Borrero MD Secondary Surgeon: Margarette Ray PAC Anesthesia Provider: Lisa Frazier CRNA Anesthesia Technique: Local, Moderate sedation Estimated Blood Loss (mL): 3 Indications: This is a 63-year-old woman with previous right carpal tunnel release, painful triggering of third and fourth fingers with previous attempts at steroid injections that have not been fully successful. She has good motion to her fingers, tenderness over flexor tendon sheath with triggering of third and f ourth fingers right hand. Informed consent obtained at the office for flexor tendon sheath releases third and fourth fingers right hand Findings: The flexor tendons appear normal and there is no sign of triggering of fingers after release had been performed, active motion with patient awake Complications: None - Other Other Information/Narrative: The patient was brought to the operating room, placed in the supine position, Right arm placed on a arm extension table. Right upper extremity was prepped and draped in a sterile manner in the usual fashion. A timeout procedure was performed by the entire operating room team and all were in agreement. 4cc 1% Xylocaine with epinephrine/0.25% Marcaine 4 cc was injected directly over the flexor tendon at the distal palmar crease region. After satisfactory anesthesia was achieved, a transverse 1 cm incision was made in line with the Right third finger and at the level of the distal palmar crease. Once the skin was incised, a spreading technique was utilized to expose the flexor tendon. Right angle retractors were placed on each side of the flexor tendon. The flexor tendon sheath was identified and was released from proximal to distal using tenotomy scissors.The index finger had the same procedure performed with a transverse incision at the distal palmar crease, protection of neurovascular bundles and release the flexor tendon sheath The patient was asked to actively extend and flex his fingers and there is no sign of triggering with active motion of the Right third and fourth fingers. Wound was irrigated. The incision was closed with two 4-0 nylon sutures For each incision A sterile Xeroform, Bulky hand dressing was applied. The patient tolerated procedure well A physician computer lab assistant was medically necessary to help with prepping and draping, positioning, protection of vital structures, assistance during the procedure including wound closure, dressing and/or splinting.
[2023-04-30] MEDS ORDERED: oxyCODONE 5 MG TABLET PO PRN (09:50)
[2023-04-30] MEDS ORDERED: ONDANSETRON ODT 4 MG TABLET TL PRN (09:50)
[2023-04-30] MEDS ORDERED: CELECOXIB 100 MG CAPSULE PO PRN (09:50)
[2023-04-30] MEDS ORDERED: ACETAMINOPHEN 500 MG TABLET PO PRN (09:50)
[2023-04-30 10:52] VITALS: BP 111/58; O2SAT 97
--- NOTE | 2023-04-30 12:51 | ANESTHESIA POST OP EVALUATION ---
Anesthesia Post Eval - Post Anesthesia Eval Vitals: Last Vital Signs Temp 36.0 C L 04/30/23 10:50 Pulse 71 04/30/23 10:50 Resp 16 04/30/23 10:50 BP 111/58 L 04/30/23 10:50 Pulse Ox 97 04/30/23 10:50 O2 Flow Rate 0 04/30/23 07:48 CV Function Including HR & BP: Stable Pain Control: Satisfactory Nausea & Vomiting: Negative Mental Status: Baseline Respiratory Status: Airway Patent Hydration Status: Satisfactory Anesthesia Complications: None
== END 2023-04-30 07:23 | disposition home or self-care (01) ==
LOC: SDS 07:22
PROVIDERS: ATTEND Orthopaedic Surgery
DX: M65.331 Trigger finger, right middle finger (principal); M65.341 Trigger finger, right ring finger; J45.909 Unspecified asthma, uncomplicated; I10 Essential (primary) hypertension; E66.9 Obesity, unspecified; Z68.37 Body mass index [BMI] 37.0-37.9, adult
CPT/HCPCS: 26055; A9270; J3490; J7120

== ENCOUNTER 2023-07-02 13:52 | Day surgery (SDC) | payer MEDICAID ==
[2023-07-02] MEDS ORDERED: LACTATED RINGERS 1,000 ML IV ONE ×2 (14:06→15:11)
[2023-07-02] MEDS ORDERED: ACETAMINOPHEN 500 MG TABLET PO ONE (14:12)
[2023-07-02] MEDS ORDERED: ONDANSETRON 4 MG/2 ML VIAL IVP PRN ×2 (14:17→15:09)
[2023-07-02] MEDS ORDERED: HYDROmorphone 0.5 MG/0.5 ML SYRINGE IVP PRN (14:17)
[2023-07-02] MEDS ORDERED: METOCLOPRAMIDE 10 MG/2 ML VIAL IVP PRN (14:17)
[2023-07-02] MEDS ORDERED: fentaNYL 100 MCG/2 ML VIAL IVP PRN (14:17)
[2023-07-02] MEDS ORDERED: MORPHINE 2 MG/ML CARPUJECT IVP PRN (14:17)
[2023-07-02] MEDS ORDERED: ATROPINE ABBOJECT 1 MG/10 ML SYRINGE IVP PRN (14:17)
[2023-07-02] MEDS ORDERED: NALOXONE 0.4 MG/ML VIAL IVP PRN (14:17)
[2023-07-02] MEDS ORDERED: ePHEDrine 50 MG/ML VIAL IVP PRN (14:17)
--- NOTE | 2023-07-02 14:17 | ANESTHESIA ---
Pre-Anesthesia VS, & Labs - Diagnosis L CTS - Procedure L CTR Height: 5 ft 2 in - NPO >8 hours - Is Patient ?: No - Lab Results Lab results reviewed: Yes Home Medications and Allergies Home Medications: Ambulatory Orders Albuterol 2.5 mg INH Q4H PRN 06/27/23 hydroCHLOROthiazide [Hydrochlorothiazide] 25 mg PO DAILY 08/10/17 Albuterol Sulfate [Proair Respiclick] 2 puffs INH Q4H PRN 03/02/18 Thyroid,Pork [[place] Thyroid] 120 - 180 mg PO QDAC 03/02/18 Venlafaxine HCl [Venlafaxine HCl ER] 150 mg PO BID 03/02/18 traZODone [Desyrel] 200 mg PO HS PRN 03/02/18 lisinopriL [Lisinopril] 10 mg PO DAILY 07/27/18 Furosemide [Lasix] 40 mg PO DAILY 04/28/23 Ibuprofen [Motrin] 600 mg PO Q6H PRN 04/28/23 Albuterol 2.5 mg INH Q4H PRN 06/27/23 Allergies/Adverse Reactions: Allergies Allergy/AdvReac Type Severity Reaction Status Date / Time adhesive tape Allergy Rash Verified 02/24/23 06:23 latex Allergy Rash Verified 02/24/23 06:23 tramadol Allergy Emesis Verified 02/24/23 06:23 gabapentin AdvReac Hallucinati Verified 02/24/23 06:23 ons hydrocodone bitartrate * AdvReac Itching Verified 02/24/23 06:23 [From Vicodin] Anes History & Medical History - Anesthetic History Anesthesia Complications: reports: No previous complications Family history of Anesthesia Complications: Denies Family history of Malignant Hyperthermia: Denies - Medical History Cardiovascular: reports: Hypertension, Murmur Pulmonary: reports: Asthma, Shortness of breath Gastrointestinal: reports: Diverticulitis Urinary: reports: None Neuro: reports: Headaches, Motion sickness Musculoskeletal: reports: Osteoarthritis, Fatigue, Chronic back pain Endocrine/Autoimmune: reports: HyPOthyroidism Blood Disorders: reports: None Skin: reports: None Smoking Status: Never smoker - Surgical History General: reports: Appendectomy, Bowel surgery, Colonoscopy, EGD Gynecologic: reports: Oophrectomy, Mastectomy Orthopedic: reports: Carpal Tunnel surgery, Spine surgery Exam General: Alert, Oriented x3, Cooperative Dental: Poor dentition Mouth Openin Fingerbreadth Neck Mobility: Normal Mallampati classification: II Thyromental Distance: 4-6 cm Respiratory: Lungs clear, Normal breath sounds, No respiratory distress Cardiovascular: Regular rate Neurological: Normal speech Mental/Cognitive Status: Alert/Oriented X3, Normal for patient Cognitive Status: Within normal limits Plan Anesthesia Type: Total IV Consent for Procedure(s) Verified and Reviewed: Yes Code Status: Attempt Resuscitation ASA classification: 2-Mild systemic disease Is this case an emergency?: No
[2023-07-02] MEDS ORDERED: PROPOFOL 500 MG/50 ML 500 MG/50 ML VIAL ONE (14:21)
[2023-07-02] MEDS ORDERED: MIDAZOLAM 2 MG/2 ML VIAL ONE (14:22)
[2023-07-02] MEDS ORDERED: LIDOCAINE-PF 2% 10 ML AMP SUBQ ONE (14:22)
[2023-07-02] MEDS ORDERED: fentaNYL 100 MCG/2 ML VIAL ONE (14:22)
[2023-07-02] MEDS ORDERED: LIDOCAINE 1%-EPI 1:100000 20 ML MDV ONE (14:47)
[2023-07-02] MEDS ORDERED: KETAMINE 200 MG/20 ML VIAL ONE (14:48)
[2023-07-02] MEDS ORDERED: LIDOCAINE 1%-EPI 1:100000 20 ML MDV SUBQ ONE ×2 (14:57)
[2023-07-02] MEDS ORDERED: LACTATED RINGERS 1,000 ML IV SCH (15:00)
[2023-07-02] MEDS ORDERED: DEXAMETHASONE 4 MG/ML VIAL ONE (15:06)
[2023-07-02] MEDS ORDERED: ONDANSETRON 4 MG/2 ML VIAL ONE (15:06)
[2023-07-02] MEDS ORDERED: oxyCODONE 5 MG TABLET PO PRN (15:09)
[2023-07-02] MEDS ORDERED: ACETAMINOPHEN 500 MG TABLET PO PRN (15:09)
--- NOTE | 2023-07-02 15:12 | OPERATIVE REPORT ---
Operative Report - General Procedure Date: 07/02/23 Planned Procedure: . Left carpal tunnel release Pre-Op Diagnosis: Left carpal tunnel syndrome Procedure Performed: Left carpal tunnel release Post Op Diagnosis: Same as preoperative diagnosis - Procedure Note Primary Surgeon: Matti Lerner MD Secondary Surgeon: James Shomeaker MD Anesthesia Provider: Derrick Pinto CRNA Anesthesia Technique: Moderate sedation Estimated Blood Loss (mL): 1 Indications: This is a 63-year-old woman with bilateral carpal tunnel syndrome. She has had previous right carpal tunnel release with similar symptoms and findings and has had a beneficial outcome. She had positive clinical and physical findings, electrodiagnostic studies consistent with left carpal tunnel syndrome. She signed informed consent and agreement to left carpal tunnel release prior to surgery. Findings: There was a nonspecific tenosynovitis about the carpal tunnel. In the flexor tendons and median nerve appeared grossly normal, no masses within the carpal tunnel Complications: None - Other Other Information/Narrative: The patient was brought to the operating room and placed in a supine position. The left arm was placed in a arm extension table. A pneumatic tourniquet had been applied to the proximal left arm over cast padding. The left upper extremity was prepped and draped in a sterile manner in the usual fashion. A timeout procedure was performed by the entire operating room team and all were in agreement. 8 cc of 1% lidocaine with epinephrine was injected about the left carpal tunnel using a volar approach just proximal to the wrist flexor crease, ulnar to the palmaris longus. An additional amount was injected subcutaneously. A longitudinal incision was made in line with the third webspace. The incision began just distal to the wrist flexor crease and extended for 2.5 cm. The subcutaneous tissue and palmar aponeurosis were divided in line with the incision. The transverse carpal ligament was identified proximally and was incised. A blunt obturator was inserted beneath the transverse carpal ligament. The transverse carpal ligament was then divided from proximal to distal under direct visualization. The transverse carpal ligament was divided proximally with blunt tip scissors to achieve a full release of the carpal tunnel. The median nerve was inspected. The wound was irrigated. The skin was closed with interrupted 4-0 nylon vertical mattress suture. A bulky hand dressing was applied to the left hand and wrist with mild compression. A pneumatic hasmukh rniquet was not utilized during the procedure. Hemostasis was achieved with letter cautery.A pneumatic tourniquet was used for 5 minutes, released for hemostasis and closure The patient tolerated procedure wellA physician stylist assistant was utilized to protect neurovascular structures, exposure, wound closure and dressing
[2023-07-02 15:42] VITALS: O2SAT 100
[2023-07-02 15:51] VITALS: BP 106/90
--- NOTE | 2023-07-02 16:58 | ANESTHESIA POST OP EVALUATION ---
Anesthesia Post Eval - Post Anesthesia Eval Vitals: Last Vital Signs Temp 36.8 C 07/02/23 15:45 Pulse 77 07/02/23 15:45 Resp 16 07/02/23 15:45 BP 106/90 H 07/02/23 15:45 Pulse Ox 100 07/02/23 15:45 O2 Flow Rate CV Function Including HR & BP: Stable Pain Control: Satisfactory Nausea & Vomiting: Negative Mental Status: Baseline Respiratory Status: Airway Patent Hydration Status: Satisfactory Anesthesia Complications: None
== END 2023-07-02 13:53 | disposition home or self-care (01) ==
LOC: SDS 13:52
PROVIDERS: ATTEND Orthopaedic Surgery
DX: G56.02 Carpal tunnel syndrome, left upper limb (principal); J45.909 Unspecified asthma, uncomplicated
CPT/HCPCS: 64721; A9270; J3490; J7120

== ENCOUNTER 2023-07-21 15:41 | Outpatient (CLI) | payer MEDICAID | END 2023-07-21 15:42 | disposition critical access hospital (66) | LOC: EMS 15:41 | DX: R10.31 Right lower quadrant pain (principal) | CPT/HCPCS: A0425; A0427; A0999 ==

== ENCOUNTER 2023-07-21 16:07 | Emergency (ER) | payer MEDICAID ==
[2023-07-21] MEDS ORDERED: SODIUM CHLORIDE 0.9% 1,000 ML IV STA ×2 (16:09→17:35)
[2023-07-21] MEDS ORDERED: HYDROmorphone 1 MG/ML CARPUJECT IVP STA ×2 (16:16→18:01)
--- NOTE | 2023-07-21 16:19 | ED Physician Documentation ---
History of Present Illness - Stated complaint Stated Complaint: ABD PX - Chief complaint Chief Complaint: Abd Pain - Additonal information Additional information: 63-year-old female presents to the emergency department via EMS for evaluation of acute abdominal pain. Symptoms began about 3 days ago. She states that she has a large ventral hernia and has pain right in the mid of her abdomen. She is vomited once. Denies melena or hematochezia. Also reports a history of diverticulitis but this feels different. EMS administered 4 mg of Zofran as well as morphine with no relief of symptoms. Review of Systems Constitutional: denies: Fever Cardiac: reports: Reviewed and negative Respiratory: reports: Reviewed and negative GI: reports: Abdominal Pain, Nausea, Vomiting : reports: Reviewed and negative Skin: reports: Reviewed and negative PD PAST MEDICAL HISTORY - Past Medical History Past Medical History: Yes Cardiovascular: Hypertension, Murmur Respiratory: Asthma, Shortness of breath Neuro: Headaches, Motion sickness Endocrine/Autoimmune: HyPOthyroidism GI: Diverticulitis FUR FINISHER: Breast cancer : None HEENT: Chronic vision loss Psych: Depression, Anxiety, ADD/ADHD, Claustrophobia Musculoskeletal: Osteoarthritis, Fatigue, Chronic back pain Derm: None - Past Surgical History Past Surgical History: Yes General: Appendectomy, Bowel surgery, Colonoscopy, EGD Ortho: Carpal Tunnel surgery, Spine surgery /FUR FINISHER: Oophrectomy, Mastectomy - Present Medications Home Medications: Ambulatory Orders Medication Instructions Recorded Confirmed hydroCHLOROthiazide 25 mg PO DAILY 08/10/17 06/27/23 [Hydrochlorothiazide] Albuterol Sulfate [Proair 2 puffs INH Q4H PRN 03/02/18 06/27/23 Respiclick] Thyroid,Pork [[place] Thyroid] 120 - 180 mg PO QDAC 03/02/18 06/27/23 Venlafaxine HCl [Venlafaxine HCl 150 mg PO BID 03/02/18 06/27/23 ER] traZODone [Desyrel] 200 mg PO HS PRN 03/02/18 06/27/23 lisinopriL [Lisinopril] 10 mg PO DAILY 07/27/18 06/27/23 Furosemide [Lasix] 40 mg PO DAILY 04/28/23 06/27/23 Ibuprofen [Motrin] 600 mg PO Q6H PRN 04/28/23 06/27/23 Albuterol 2.5 mg INH Q4H PRN 06/27/23 06/27/23 Prochlorperazine [Compazine] 5 mg PO Q6H PRN #10 tablet 07/21/23 oxyCODONE [Roxicodone] 5 mg PO TID PRN #10 tablet 07/21/23 - Allergies Allergies/Adverse Reactions: Allergies Allergy/AdvReac Type Severity Reaction Status Date / Time adhesive tape Allergy Rash Verified 07/21/23 16:12 latex Allergy Rash Verified 07/21/23 16:12 tramadol Allergy Emesis Verified 07/21/23 16:12 gabapentin AdvReac Hallucinati Verified 07/21/23 16:12 ons hydrocodone bitartrate * AdvReac Itching Verified 07/21/23 16:12 [From Vicodin] - Social History Does the pt smoke?: No Smoking Status: Never smoker Does the pt drink ETOH?: No Does the pt have substance abuse?: No - Immunizations Immunizations are current?: Yes - POLST Patient has POLST: No POLST Status: Full Code PD ED PE NORMAL - General General: Alert and oriented X 3. No: No acute distress (appear uncomfortable and in pain) - HEENT HEENT: Atraumatic - Cardiac Cardiac: RRR, No murmur - Respiratory Respiratory: No respiratory distress, Clear bilaterally - Abdomen Abdomen: Normal bowel sounds, Soft. No: Non tender (Large lower abdominal ventral hernia which is reducible. Hernia itself seems tender.) - Back Back: No CVA TTP - Derm Derm: Normal color - Extremities Extremities: No deformity - Neuro Neuro: Alert and oriented X 3, hydrator 2-12 intact Eye Opening: Spontaneous Motor: Obeys Commands Verbal: Oriented GCS Score: 15 Results - Vitals Vitals: Vital Signs - 24 hr 07/21/23 07/21/23 07/21/23 16:12 16:15 18:15 Temperature 36.8 C 36.8 C Heart Rate 90 90 86 Respiratory 20 20 18 Rate Blood Pressure 115/90 H 115/90 H 139/88 H O2 Saturation 100 100 100 Oxygen O2 Source Room air - Labs Labs: Laboratory Tests 07/21/23 07/21/23 07/21/23 16:19 16:19 17:40 WBC 10.4 RBC 4.48 Hgb 13.5 Hct 38.7 MCV 86.4 MCH 30.1 MCHC 34.9 RDW 12.6 Plt Count 344 MPV 10.4 Neut # (Auto) 5.3 Lymph # (Auto) 3.8 H [place] # (Auto) 1.0 Eos # (Auto) 0.2 Baso # (Auto) 0.1 Absolute Nucleated RBC 0.00 Nucleated RBC % 0.0 Sodium 135 Potassium 2.8 L Chloride 97 L Carbon Dioxide 22 Anion Gap 16.0 H BUN 49 H Creatinine 2.8 H Estimated GFR (MDRD) 17 L Glucose 123 H Calcium 11.7 H Total Bilirubin 1.1 H AST 33 ALT 21 Alkaline Phosphatase 87 Total Protein 7.6 Albumin 4.5 Globulin 3.1 Albumin/Globulin Ratio 1.5 Lipase 13 Urine Color YELLOW Urine Clarity CLEAR Urine pH 6.0 Ur Specific [place] 1.020 Urine Protein NEGATIVE Urine Glucose (UA) NEGATIVE Urine Ketones TRACE Urine Occult Blood NEGATIVE Urine Nitrite NEGATIVE Urine Bilirubin NEGATIVE Urine Urobilinogen 0.2 (NORMAL) Ur Leukocyte Esterase NEGATIVE Ur Microscopic Review NOT INDICATED Urine Culture Comments NOT INDICATED 07/21/23 19:18 WBC RBC Hgb Hct MCV MCH MCHC RDW Plt Count MPV Neut # (Auto) Lymph # (Auto) [place] # (Auto) Eos # (Auto) Baso # (Auto) Absolute Nucleated RBC Nucleated RBC % Sodium 137 Potassium 3.1 L Chloride 102 Carbon Dioxide 21 Anion Gap 14.0 H BUN 44 H Creatinine 2.4 H Estimated GFR (MDRD) 20 L Glucose 101 Calcium 10.4 H Total Bilirubin AST ALT Alkaline Phosphatase Total Protein Albumin Globulin Albumin/Globulin Ratio Lipase Urine Color Urine Clarity Urine pH Ur Specific [place] Urine Protein Urine Glucose (UA) Urine Ketones Urine Occult Blood Urine Nitrite Urine Bilirubin Urine Urobilinogen Ur Leukocyte Esterase Ur Microscopic Review Urine Culture Comments - Rads (name of study) CT abd Relevant Findings:: Final report received (No evidence of urinary tract calcification or obstruction. Bowel-containing anterior pelvic wall hernia without associated strangulation or obstruction.) PD Medical Decision Making - ED course Complexity details: reviewed results, re-evaluated patient, d/w patient ED course: 63-year-old female comes the emergency department for evaluation of acute abdominal pain that began about 3 days ago. States that she has had very little to eat or drink secondary to pain and nausea. She has vomited once. No melena hematochezia. She has a very large ventral hernia in the lower mid abdomen. Presentation the emergency department she was acutely uncomfortable writhing in pain. She denied dysuria urgency or frequency. Initially hamzah CBC, electrolytes and a urinalysis. CBC was unremarkable. Her electrolytes show potassium of 2.8. She was given 50 of potassium orally in the ER. She does have findings of acute kidney injury with a BUN of 49 and a creatinine of 2.8. Most recent renal panel showed normal function. No evidence of urinary tract infection. For the acute kidney injury in the emergency department the patient was administered 2 L of crystalloid. She also received some Dilaudid and Compazine. On reevaluation she was reporting that her pain and symptoms had markedly improved. I did obtain a noncontrast CT of the abdomen for further differentiation of her abdominal pain. There were no acute findings found. The large abdominal hernia was without findings of incarceration or strangulation. I subsequently repeated her BMP to evaluate for improved renal function after hydration And it showed that her BUN had improved to 44 and her creatinine was now 2.4. I suspect the cause of her acute kidney injury is lack of oral intake over the last 3 days due to abdominal pain. It may also have been worsened by taking her furosemide in the setting of no oral intake. I reevaluated the patient and she was requesting to be discharged home. I discussed the concerning lab findings with her. She feels that with some analgesia and antiemetic at home she can be managed safely. She is advised to have her kidney function rechecked within the next 4 to 5 days. If her symptoms or not improving at home she will return to the ER for repeat evaluation. Departure - Departure Disposition: 01 Home, Self Care Clinical Impression: TRISHA (acute kidney injury), Dehydration Abdominal pain Qualifiers: Abdominal location: generalized Qualified Code(s): R10.84 - Generalized abdominal pain Abdominal hernia Qualifiers: Hernia type: unspecified Obstruction and gangrene presence: without obstruction or gangrene Recurrence: not specified as recurrent Qualified Code(s): K46.9 - Unspecified abdominal hernia without obstruction or gangrene Condition: Stable Record reviewed to determine appropriate education?: Yes Prescriptions: Prochlorperazine [Compazine] 5 mg PO Q6H PRN #10 tablet PRN Reason: Nausea / Vomiting oxyCODONE [Roxicodone] 5 mg PO TID PRN #10 tablet PRN Reason: Pain Comments: Anny guerra are seen today in the emergency department for several days of generalized abdominal pain. With the abdominal pain you have had very little to eat or drink. You have also been taking your usual medications like Lasix. This has caused you to become very dehydrated. This has caused some mild dysfunction to your kidneys. Here in the emergency department we did give you some IV fluids and your kidney function is improving. The CT of your abdomen did not show an obvious cause for the abdominal discomfort. I am sending a prescription for some Compazine, a nausea medicine to the [facility]. You should use this 2-3 times a day. Over the next 24 to 48 hours I encourage frequent sips of clear liquids. I have also prescribed a very limited amount of oxycodone for your abdominal pain. I would like you to have your kidney labs rechecked in the next week. While you are at home convalescing I would recommend holding your Lasix dosing for 48 hours or 2 doses only. This should help make sure that you get adequately hydrated and your kidney function improves. Return immediately to the ER if you find you are having any new or worsening symptoms. As always follow closely with your primary care doctor. I am prescribing a short course of narcotic pain medication for you. These are potentially dangerous and addictive medications that should be used carefully. These medications may constipate you. Take an hbtq-fhv-jhcyums stool softener (docusate) twice daily with plenty of water while taking these medications. If you go 24 hours without a bowel movement, take odho-dtp-kszilin miralax, per package instructions. Do not drink or drive while taking these medications. If you received narcotic or sedating medications while in the emergency department, do not drive for 24 hours. Store this medication in a safe, secure place and out of reach of children. It is a violation of federal law to give or sell this medication to another person or to use in a manner other than prescribed. The ED will not refill narcotic prescriptions, including prescriptions lost or stolen. To dispose of unwanted medications: 1. [facility] at [address] in [place] has a medication drop box. They accept prescription medications (in pill form) Friday through Friday 9:00 a.m. to 5:00 p.m. 2. The [facility] [employer] accepts prescription medications (in pill form only) for disposal year round. Call for more information. 3. Contact the [facility] for the next [facility] sponsored prescription drug collection event. , [phone], or [phone]; Note that many narcotic pain relievers also contain Tylenol/acetaminophen. Please ensure that your total dose of acetaminophen from all sources does not exceed 3 g (3000 mg) per day. Forms: PCP List
[2023-07-21 16:22] VITALS: O2SAT 100
[2023-07-21 16:26] LABS: BASOPHILS # (AUTO) 0.1 10^3/uL (0.0-0.1); BASOPHILS % (AUTO) 0.7 %; EOSINOPHILS # (AUTO) 0.2 10^3/uL (0.0-0.7); EOSINOPHILS % (AUTO) 2.1 %; HCT - HEMATOCRIT 38.7 % (37.0-47.0); HGB - HEMOGLOBIN 13.5 g/dL (12.0-16.0); LYMPHOCYTES # (AUTO) 3.8 10^3/uL (1.5-3.5); LYMPHOCYTES % (AUTO) 36.1 %; MEAN CORPUSCULAR HEMOGLOBIN 30.1 pg (27.0-31.0); MEAN CORPUSCULAR HGB CONC 34.9 g/dL (32.0-36.0); MEAN CORPUSCULAR VOLUME 86.4 fL (81.0-99.0); MEAN PLATELET VOLUME 10.4 fL (7.9-10.8); MONOCYTES % (AUTO) 9.3 %; NEUTROPHILS # (AUTO) 5.3 10^3/uL (1.5-6.6); NEUTROPHILS % (AUTO) 51.4 %; PLT - PLATELET COUNT 344 10^3/uL (130-450); RED BLOOD COUNT 4.48 10^6/uL (4.20-5.40); RED CELL DISTRIBUTION WIDTH 12.6 % (12.0-15.0); WHITE BLOOD COUNT 10.4 x10^3/uL (4.8-10.8)
[2023-07-21 16:39] LABS: ALBUMIN 4.5 g/dL (3.2-5.5)
[2023-07-21 16:41] LABS: ALBUMIN/GLOBULIN RATIO 1.5 (1.0-2.2); BILIRUBIN,TOTAL 1.1 mg/dL (0.2-1.0); CALCIUM 11.7 mg/dL (8.5-10.3); CREATININE 2.8 mg/dL (0.6-1.3); POTASSIUM 2.8 mmol/L (3.5-4.5); TOTAL PROTEIN 7.6 g/dL (6.4-8.9)
[2023-07-21] MEDS ORDERED: POTASSIUM BICARB 25 MEQ TABLET PO STA (17:36)
[2023-07-21 17:46] LABS: BILIRUBIN,URINE NEGATIVE (NEGATIVE); CLARITY,URINE CLEAR (CLEAR); GLUCOSE, URINE (UA) NEGATIVE (NEGATIVE); KETONES,URINE (UA) TRACE mg/dL (NEGATIVE); LEUKOCYTE ESTERASE, URINE NEGATIVE (NEGATIVE); NITRITE,URINE NEGATIVE (NEGATIVE); OCCULT BLOOD,URINE NEGATIVE (NEGATIVE); PROTEIN,URINE NEGATIVE (NEGATIVE); UROBILINOGEN,URINE 0.2 (NORMAL) E.U./dL (NORMAL)
[2023-07-21] MEDS ORDERED: PROCHLORPERAZINE 10 MG/2 ML VIAL IVP STA (18:01)
--- NOTE | 2023-07-21 19:18 | CT Report ---
PROCEDURE: ABDOMEN/PELVIS WO INDICATIONS: abd pain TECHNIQUE: A CT scan of the abdomen and pelvis was performed without the use of intravenous contrast. Images we re recorded and evaluated at appropriate window settings. Reformats: coronal and sagittal. For radiat ion dose reduction, the following was used: automated exposure control, adjustment of mA and/or kV ac cording to patient size. COMPARISON: None. FINDINGS: Image quality: Excellent. Lung bases and heart: Unremarkable. Liver: No solid mass. Gallbladder and biliary tree: Gallbladder is within normal limits. No biliary ductal dilatation. Spleen: No splenomegaly. Pancreas: No pancreatic ductal dilation. Adrenals: No adrenal nodule. Kidneys and ureters: No hydronephrosis. No renal cystic lesion which requires follow up. No solid mas s. Bowel and peritoneum: No bowel distension. No pathologic free fluid. Appendix not seen. No evidence o f appendicitis. Lymph nodes: No central or retroperitoneal adenopathy. Vessels: No infrarenal aortic aneurysm. PELVIS Reproductive organs: Unremarkable. Bladder: No wall thickness, accounting for underdistention. Pelvic lymph nodes: No pelvic adenopathy by size criteria. Bones: No aggressive osseous abnormality. Thoracolumbar fusion hardware. Other: Bowel containing anterior pelvic wall hernia measuring 16 cm. IMPRESSION: 1. No evidence of urinary tract calcification nor obstruction. 2. Bowel containing anterior pelvic wall hernia without associated strangulation nor obstruction. Reviewed by: Candis Clements MD on 07/21/2023 7:17 PM PST Approved by: Candis Clements MD on 07/21/2023 7:17 PM PST Station ID: [id number]
[2023-07-21 20:09] LABS: CALCIUM 10.4 mg/dL (8.5-10.3); CREATININE 2.4 mg/dL (0.6-1.3); POTASSIUM 3.1 mmol/L (3.5-4.5)
[2023-07-21 20:42] VITALS: BP 130/80
== END 2023-07-21 20:37 | disposition home or self-care (01) ==
LOC: EDUNIT# → ED 16:07
DX: N17.9 Acute kidney failure, unspecified (principal); E86.0 Dehydration; E87.6 Hypokalemia; R10.84 Generalized abdominal pain; K46.9 Unspecified abdominal hernia without obstruction or gangrene
CPT/HCPCS: 36415; 74176; 80048; 80053; 81003; 83690; 85025; 96374; 96375; 96376; 99283; 99284; A9270; J1170; 81001; 87086

== ENCOUNTER 2023-07-29 08:45 | Outpatient (CLI) | payer MEDICAID ==
[2023-07-29 09:38] LABS: THYROID STIMULATING HORMONE 3.86 uIU/mL (0.34-5.60)
== END 2023-07-29 08:46 | disposition home or self-care (01) ==
LOC: LAB 08:45
PROVIDERS: ATTEND Internal Medicine
DX: E03.9 Hypothyroidism, unspecified (principal); Z79.899 Other long term (current) drug therapy
CPT/HCPCS: 36415; 84439; 84443; 84481

== ENCOUNTER 2023-11-10 07:45 | Outpatient (CLI) | payer MEDICAID ==
--- NOTE | 2023-11-10 16:13 | XRAY Report ---
PROCEDURE: Shoulder 3 View LT INDICATIONS: LEFT SHOULDER PAIN TECHNIQUE: 4 views of the shoulder were acquired. COMPARISON: 05/26/2019. FINDINGS: Bones: No fractures or dislocations. No suspicious bony lesions. Visualized ribs appear intact. Mi ld glenohumeral and acromioclavicular joint osteoarthrosis, progressed since prior radiograph Septemb er 2018 Soft tissues: No suspicious soft tissue calcifications. The visualized lungs are within normal limi ts. IMPRESSION: No acute bony abnormality. Mild glenohumeral and acromioclavicular joint osteoarthrosis, progressed since 05/26/2019. Reviewed by: Wendie Montoya MD on 11/10/2023 4:11 PM PST Approved by: Wendie Montoya MD on 11/10/2023 4:11 PM PST Station ID: [id number]
== END 2023-11-10 23:59 | disposition home or self-care (01) ==
LOC: DI.WOS 07:45
PROVIDERS: ATTEND Physician Assistant Surgical
DX: M19.012 Primary osteoarthritis, left shoulder (principal)

== ENCOUNTER 2023-12-31 13:05 | Outpatient (CLI) | payer MEDICAID ==
--- NOTE | 2023-12-31 16:31 | MRI Report ---
PROCEDURE: Shoulder LT WO INDICATIONS: L ROTATOR CUFF SYN TECHNIQUE: Noncontrast oblique coronal T2 fast spin echo with fat saturation, oblique sagittal T1 spin echo and T2 fast spin echo with fat saturation, axial T1 spin echo and T2 fast spin echo with fat saturation t hrough the shoulder. COMPARISON: Left shoulder radiograph dated 11/10/2023. FINDINGS: Image quality: Excellent. Rotator cuff: Low-grade articular surface partial-thickness involving distal infraspinatus at its ins ertion on humeral head is seen with suggestion of focal full-thickness perforation involving most pos terior fibers of distal supraspinatus at its insertion on humeral head. Low to moderate grade articul ar surface partial-thickness tear involving distal infraspinatus at its insertion on humeral head ext ending to musculotendinous junction. The subscapularis tendon is intact. Mild supraspinatus muscle at rophy is seen on sagittal images. Bones and bursae: No bone marrow contusions or fractures. Emdp-eo-psyyeoio acromioclavicular joint o steoarthritic changes are seen with joint space narrowing, subchondral sclerosis and downward osteoph yte formation depressing on musculotendinous junction of supraspinatus. There is moderate amount of s ubacromial subdeltoid bursal fluid. Possible loose body within inferior aspect of glenohumeral joint is seen measures 0.9 x 0.6 cm in size. Capsule and soft tissues: Subtle fraying of superior anterior labrum with T2 hyperintense signal is s een suggestive of superior anterior labral tear. The long head of the biceps tendon appears attenuate d with intrasubstance T2 hyperintense signal at the level of humeral head. The rotator interval appe ars normal, without fibrosis. The coracohumeral ligament is normal in thickness. IMPRESSION: 1. Low-grade articular surface partial-thickness involving distal supraspinatus with focal area of fu ll-thickness perforation involving most posterior fibers of distal supraspinatus at its insertion on humeral head. Mild supraspinatus muscle atrophy. 2. Low to moderate grade articular surface partial-thickness tear involving distal infraspinatus exte nding to musculotendinous junction. 3. Emdu-cd-iijstdpc acromioclavicular joint osteoarthritis. No fracture or dislocation. Moderate amou nt of subacromial subdeltoid bursal fluid with suggestion of subcentimeter loose body involving infer ior aspect of glenohumeral joint as described above. 4. Suggestion of subtle superior anterior labral tear at 1 to 2:00 position. 5. Low to moderate grade intrasubstance partial thickness tear involving proximal intra-articular por tion of long head of biceps tendon. Reviewed by: Dilan Rivera MD on 12/31/2023 4:29 PM PDT Approved by: Dilan Rivera MD on 12/31/2023 4:29 PM PDT Station ID: [id number]
== END 2023-12-31 13:06 | disposition home or self-care (01) ==
LOC: DI 13:05
PROVIDERS: ATTEND Physician Assistant Surgical
DX: M75.112 Incomplete rotator cuff tear or rupture of left shoulder, not specified as traumatic (principal); M62.512 Muscle wasting and atrophy, not elsewhere classified, left shoulder; M19.012 Primary osteoarthritis, left shoulder; M75.52 Bursitis of left shoulder

== ENCOUNTER 2024-05-22 19:13 | Outpatient (CLI) | payer OTHER, MEDICAID | END 2024-05-22 19:14 | disposition critical access hospital (66) | LOC: EMS 19:13 | DX: S99.911A Unspecified injury of right ankle, initial encounter (principal); R07.89 Other chest pain; M25.552 Pain in left hip; M54.2 Cervicalgia; M54.6 Pain in thoracic spine; S60.512A Abrasion of left hand, initial encounter; S60.511A Abrasion of right hand, initial encounter; V43.52XA Car driver injured in collision with other type car in traffic accident, initial encounter; Y92.414 Local residential or business street as the place of occurrence of the external cause | CPT/HCPCS: A0425; A0427 ==

== ENCOUNTER 2024-05-22 19:35 | Emergency (ER) | payer OTHER, MEDICAID ==
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
[2024-05-22 19:54] LABS: BASOPHILS # (AUTO) 0.1 10^3/uL (0.0-0.1); EOSINOPHILS # (AUTO) 0.6 10^3/uL (0.0-0.7); EOSINOPHILS % (AUTO) 5.5 %; HCT - HEMATOCRIT 37.4 % (37.0-47.0); HGB - HEMOGLOBIN 11.9 g/dL (12.0-16.0); LYMPHOCYTES # (AUTO) 2.8 10^3/uL (1.5-3.5); LYMPHOCYTES % (AUTO) 27.9 %; MEAN CORPUSCULAR HEMOGLOBIN 30.4 pg (27.0-31.0); MEAN CORPUSCULAR HGB CONC 31.8 g/dL (32.0-36.0); MEAN CORPUSCULAR VOLUME 95.4 fL (81.0-99.0); MEAN PLATELET VOLUME 10.2 fL (7.9-10.8); MONOCYTES # (AUTO) 0.7 10^3/uL (0.0-1.0); MONOCYTES % (AUTO) 7.3 %; NEUTROPHILS # (AUTO) 5.8 10^3/uL (1.5-6.6); NEUTROPHILS % (AUTO) 57.3 %; PLT - PLATELET COUNT 276 10^3/uL (130-450); RED BLOOD COUNT 3.92 10^6/uL (4.20-5.40); RED CELL DISTRIBUTION WIDTH 13.2 % (12.0-15.0); WHITE BLOOD COUNT 10.1 x10^3/uL (4.8-10.8)
[2024-05-22] MEDS: KETOROLAC 15 MG/ML VIAL IM STA (20:02)
[2024-05-22 20:04] LABS: PT - PROTHROMBIN TIME 11.6 secs (9.9-12.6)
[2024-05-22 20:07] LABS: ALBUMIN 4.1 g/dL (3.2-5.5); ALBUMIN/GLOBULIN RATIO 1.5 (1.0-2.2); ALKALINE PHOSPHATASE 67 IU/L (42-121); ALT ALANINE AMINOTRANSFERASE 31 IU/L (10-60); AST ASPARTATE AMINOTRANSFERASE 37 IU/L (10-42); BILIRUBIN,TOTAL 0.4 mg/dL (0.2-1.0); BUN - BLOOD UREA NITROGEN 34 mg/dL (6-20); CALCIUM 10.4 mg/dL (8.5-10.3); CARBON DIOXIDE - CO2 28 mmol/L (21-32); CHLORIDE 100 mmol/L (101-111); CREATININE 1.6 mg/dL (0.6-1.3); GFR - MDRD 32 (>89); GLUCOSE 120 mg/dL (74-104); LIPASE 24 U/L (11-82); POTASSIUM 3.4 mmol/L (3.5-4.5); SODIUM 136 mmol/L (135-145); TOTAL PROTEIN 6.9 g/dL (6.4-8.9)
[2024-05-22] MEDS ORDERED: iohexoL-300 100 ML VIAL ONE (20:49)
[2024-05-22] MEDS: ONDANSETRON 4 MG/2 ML VIAL IVP STA (21:23)
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
[2024-05-22 21:57] LABS: ETOH - ETHANOL < 10.0 mg/dL
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
[2024-05-22] MEDS: HYDROmorphone 1 MG/ML CARPUJECT IVP STA (22:04)
[2024-05-22] MEDS: iohexoL-300 100 ML VIAL IVP ONE (23:18)
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
[2024-05-22] MEDS ORDERED: HYDROmorphone 1 MG/ML CARPUJECT IVP STA (23:47)
[2024-05-23 00:37] VITALS: BP 124/77; O2SAT 98
== END 2024-05-23 00:25 | disposition home or self-care (01) ==
LOC: EDUNIT# → ED 19:35
DX: S22.22XA Fracture of body of sternum, initial encounter for closed fracture (principal); S22.31XA Fracture of one rib, right side, initial encounter for closed fracture; V43.52XA Car driver injured in collision with other type car in traffic accident, initial encounter; Y93.89 Activity, other specified; Y92.410 Unspecified street and highway as the place of occurrence of the external cause; Z88.5 Allergy status to narcotic agent
CPT/HCPCS: 36415; 80053; 82077; 83690; 85025; 85610; 99283; 99284

== ENCOUNTER 2024-05-23 14:37 | Outpatient (CLI) | payer MEDICAID | END 2024-05-23 23:59 | disposition critical access hospital (66) | LOC: EMS 14:37 | DX: S22.20XD Unspecified fracture of sternum, subsequent encounter for fracture with routine healing (principal); S22.32XD Fracture of one rib, left side, subsequent encounter for fracture with routine healing; V49.9XXD Car occupant (driver) (passenger) injured in unspecified traffic accident, subsequent encounter | CPT/HCPCS: A0425; A0427; A0999 ==

== ENCOUNTER 2024-05-23 15:05 | Emergency (ER) | payer OTHER, MEDICAID ==
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
[2024-05-23] MEDS: HYDROmorphone 1 MG/ML CARPUJECT IVP STA (16:19)
[2024-05-23] MEDS: KETOROLAC 30 MG/ML VIAL IVP STA (16:20)
[2024-05-23] MEDS: HYDROmorphone 1 MG/ML CARPUJECT IM STA (17:29)
[2024-05-23] MEDS: oxyCODONE/ACET 5/325 Prepack 4 PO STA (17:44)
[2024-05-23 18:04] VITALS: BP 114/91; O2SAT 95
== END 2024-05-23 17:50 | disposition home or self-care (01) ==
LOC: EDUNIT# → ED 15:05
DX: S90.01XA Contusion of right ankle, initial encounter (principal); S22.22XA Fracture of body of sternum, initial encounter for closed fracture; S22.31XA Fracture of one rib, right side, initial encounter for closed fracture; V43.52XA Car driver injured in collision with other type car in traffic accident, initial encounter; Y93.89 Activity, other specified; Y92.410 Unspecified street and highway as the place of occurrence of the external cause; Z88.5 Allergy status to narcotic agent
CPT/HCPCS: 36415; 70450; 71260; 72125; 73590; 73610; 73630; 74177; 80053; 82077; 83690; 85025; 85610; 96372; 96374; 99283; 99284; J1170; Q9967